=== PATIENT | female | born 1940 | race Caucasian/White ===

== ENCOUNTER 2019-05-20 19:35 | Inpatient (IN) | payer MEDICARE, MEDICAID, SELFPAY ==
[2019-05-20] VITALS (28 sets, daily range): BP systolic 86–206; BP diastolic 44–89; PULSE 71–82; RESP 14–29; TEMP 36.8–37.1; O2SAT 87–100
--- NOTE | 2019-05-20 19:43 | ED.GENADUL_ITS ---
Discharge Plan Disposition Patient Disposition: [facility] INPATIENT Condition: Improving Discharge Details Chief Complaint: SOB Clinical Impression: SOB (shortness of breath), CHF (congestive heart failure), COPD (chronic obstructive pulmonary disease), HTN (hypertension) Admit Date/Time: 05/20/19 22:00 Admit Provider: Fredo Weiss Attending Provider: Fredo Weiss Primary Care Provider: Camilla Mcdonald ED Provider: Aisha Blue Discharge Data Discharge Date/Time-TO BE ENTERED AT DEPARTURE: 05/20/19 22:35 Medical Decision Making Patient is a 79-year-old female, accompanied by her daughter, with chief complaint of shortness of breath. Patient her daughter report that she began having mild shortness of breath and laryngitis 4 days ago. Patient reports that initially she began feeling better but then yesterday began having some shortness of breath. States the shortness of breath seems to be exacerbated this evenin g after eating at a local diner. Patient seems fairly unclear in her past medical history. Based on her description, she has 8 coronary stents, bilateral stenting of lower extremities, right-sided carotid endarterectomy. History of CAD, DVT, diabetes, hypothyroidism, hyperlipidemia, COPD, hypertension, TIA. Patient reports that she stopped smoking in 2000. Does not consume alcohol. Patient is new to the area, moved here 1 month ago. We do not have any previous notes on her but will obtain recent note from primary care. Patient denies being on any water pill. Does take a blood thinner daily. Has been using her nebulizer at home which she reports helps with symptomatic management. Patient denies any chest pain, abdominal pain, neck, shoulder, back pain. Denies any nausea or vomiting. Denies any fevers or chills. States that she has been noting swelling in bilateral lower extremities, worse at night. EKG reviewed by Dr. Brian. Patient NSR, rate 81. Nonspecific T wave inversion in aVL. No acute ischemic changes noted. No previous ECG for comparison. Reviewed notes from primary care as well as discharge summary dated 04/05/2019 from hospitalization in [place] after COPD exacerbation. In their notes, patient is diagnosed with hypertension, COPD, CAD status post 8 stents, CHF with an EF of 60 to 65% in January 2019, type 2 diabetes, CKD stage III with a new baseline GFR of 35, carotid artery stenosis status post bilateral carotid endarterectomies, chronic proximal atrial fibrillation, history of DVT, dyslipidemia, hypothyroidism, obesity, suspicion for DANYELLE, memory loss concerning for dementia, medical noncompliance. Primary care physician had reported patient's weight to be 78.55 kg on 05/02/2019. She is up to 83.325 today. Blood pressure at that time was 188/62. Primary care was attempted to obtain more information on the patient. Referred to neurology for her history of TIA with residual right hand weakness and tremor. Also referred to cardiology with history of CHF that was at the time asymptomatic as well as her known CAD. She is not clear why patient is not on JENNIFER or an arm with her history of diabetes and her hypertension. Patient is on amlodipine and metoprolol. On exam, patient does appear short of breath. She is hypoxic at 93% on room air, tachypneic at 29. Patient is hypertensive with a blood pressure 186/70. When I first evaluated the patient, she was receiving her nebulizer. Normal cardiac exam, normal sinus rhythm with no murmurs rubs or gallops appreciated. Patient does have diffuse crackles on lung exam. She has bilateral lower extremity edema with 1+ pitting. Abdomen benign. Concerned for COPD exacerabtion vs. CHF exacerbation primarily but also considered ACS, PE. Find PE unlikely as she is on plavix and eliquis. She is not tachycardic, no LE pain to suggest active DVT. No CP. There was difficulty getting access on the patient. She does have a fistula in the left upper extremity. Patient will be anemic with a hemoglobin of 11, compared to previous discharge report has brought in by her daughter, patient is typically anemic. INR is normal. BUN is 32. Creatinine 1.33. GFR is 38. Glucose 235. Magnesium 1.7. Troponin is normal at 0.05. BNP is elevated at 382. Patient was given IV Lasix on first presentation given the 10 pound weight gain, peripheral edema and crackles noted on exam. She is to be responding well to this. Chest x-ray reviewed by radiologist: FINDINGS: Lungs: Slight prominence of the interstitial markings is most likely related to chronic lung changes. No significant acute or interstitial disease is appreciated. Pleural space: Unremarkable. No pleural effusion. No pneumothorax. Heart/Mediastinum: Unremarkable. No cardiomegaly. Vasculature: Calcified aortic knob. Bones/joints: No acute skeletal abnormality. Soft tissues: Clips are visualized in the lower neck. No acute soft tissue abnormality. IMPRESSION: Negative for acute thoracic pathology. Patient is feeling improved but continues to be very SOB with limited movement. Unable to get to comode without significant assitance secondary to her SOB. Will discuss admission for SOb with hospitalist. Patient accepted to medical surgical unit by Dr. Weiss for continued monitoring and medical management. HPI General Mode of arrival: wheelchair . Date/Time Provider Initiated Documentation: 05/20/19 19:40 . Limitations to Documentation: no limitations . Information obtained by: patient, family (daughter who is primary patient care secretary) an elliot RN notes reviewed . History of Present Illness 79 year old F presents to the emergency department with the chief complaint of SOB, described as moderate and similar to prior episodes, and is localized to the chest (SOB, denies any CP, chest pressures, back pain, shoulder pain, neck pain). Patient started experiencing this day(s) No relieving factors improve symptom(s), Movement worsens symptoms . Patient notes cough, shortness of breath and weakness; denies chest pain, diaphoresis, fever/chills, headaches, loss of appetite, malai se, nausea/vomiting, rash and seizure. Patient did receive the following treatments prior to arrival, none Related Data Home Medications Medication Instructions Recorded Confirmed Albuterol-Ipatropium 3 ml INHALATION PRN PRN 05/20/19 05/20/19 amlodipine [Norvasc] 2.5 mg PO DAILY 05/20/19 05/20/19 apixaban 2.5 mg PO BID 05/20/19 05/20/19 atorvastatin 40 mg PO HS 05/20/19 05/20/19 buspirone 7.5 mg PO DAILY 05/20/19 05/20/19 cholecalciferol (vitamin D3) 1,000 unit PO DAILY 05/20/19 05/20/19 clopidogrel 75 mg PO DAILY 05/20/19 05/20/19 dicyclomine 20 mg PO DAILY PRN 05/20/19 05/20/19 ferrous sulfate 325 mg PO DAILY 05/20/19 05/20/19 gabapentin 900 mg PO TID 05/20/19 05/20/19 hydralazine 25 mg PO TID 05/20/19 05/20/19 insulin glargine 50 unit SUBCUT DAILY 05/20/19 05/20/19 insulin lispro [Humalog KwikPen 15 unit SUBCUT AC 05/20/19 05/20/19 Insulin] isosorbide dinitrate 30 mg PO BID 05/20/19 05/20/19 levothyroxine 112 mcg PO DAILY 05/20/19 05/20/19 metoprolol succinate 25 mg PO DAILY 05/20/19 05/20/19 nitroglycerin [Nitrostat] 0.4 mg SUBLINGUAL Q5M PRN 05/20/19 05/20/19 pantoprazole [Protonix] 40 mg PO DAILY AM 05/20/19 05/20/19 paroxetine HCl [Paxil] 20 mg PO DAILY 05/20/19 05/20/19 Allergies Allergy/AdvReac Type Severity Reaction Status Date / Time No Known Allergies Allergy Unverified 05/20/19 20:59 General Stated Complaint: SOB JOSH: 3 Review of Systems Constitutional Constitutional: Reports as per HPI, Denies chills, Denies fever(s), Denies headache(s), Denies lethargy and Denies poor appetite Eyes Eyes: Denies change in vision ENT Ears, Nose, Mouth, and Throat: Denies dizziness and Denies headache(s) Cardiovascular Cardiovascular: Reports as per HPI, Denies chest pain, Reports leg edema (worsening with time, worse in PM, resolved in AM), Denies lightheadedness, Reports dyspnea, Reports dyspnea on exertion and Reports orthopnea Respiratory Respiratory: Reports as per HPI, Denies chest congestion, Reports cough (reports mild URI with cough, congestion, laryngitis), Denies pain on inspiration, Denies pain with cough, Reports dyspnea, Reports dyspnea on exertion and Denies wheezing Gastrointestinal Gastrointestinal: Reports as per HPI, Denies abdominal pain, Denies diarrhea, Denies nausea and Denies vomiting Musculoskeletal Musculoskeletal: Reports as per HPI and Denies back pain Integumentary/Breasts Skin/Breast: Reports as per HPI and Denies rash Neurologic Neurologic: Reports as per HPI, Denies dizziness and Denies headache(s) Allergic/Immunologic Allergic/Immunologic: Denies wheezing PFSH Social History Smoking/Tobacco Use Status: Former Tobacco Use Substance use type: does not use Do you feel safe in your relationship?: Yes Exam Const General: cooperative, well developed, acute distress (appears SOB, unable to speak in complete sentences), anxious and ill appearing acutely and chronically Nutritional Appearance: well nourished and overweight Orientation: alert, awake and oriented x3 [facility]: normal to inspection Ears: hearing grossly normal bilaterally Mouth: moist mucous membranes Chest Chest: normal inspection of the chest, normal palpation of entire chest wall and no crepitus Resp Effort & Inspection: normal respiratory effort, able to speak in complete sentences and no respiratory distress Auscultation: crackles (diffuse), diminished lung sounds (diffuse), no rhonchi and no wheezes Cardio Rate: regular rate Rhythm: regular rhythm Heart Sounds: S1 normal and S2 normal GI Inspection: normal to inspection, no edema, non-distended and obesity Palpation: soft, no hepatosplenomegaly, not firm, no guarding, not rigid and nontender Auscultation: normal bowel sounds Back/Spine/Pelvis Back: no CVA tenderness Thoracic/Lumbar Spine: thoracic and lumbar spine normal to inspection Skin General skin exam: no rashes or lesions noted Trauma: no lacerations or abrasions Neuro General: alert, awake and oriented x3 Cognition: normal cognition Speech: speech normal Gait: gait abnormal (unable to ambulate without assistance) Extrem General: normal to inspection, normal capillary refill, no calf tenderness, no calf tenderness bilaterally and edema (1+ pitting edema) Laterality: bilateral Psych Appearance: grossly normal and well kempt Mental Status: mental status grossly normal Speech and Movement: speech and movement normal Course Vital Signs Vital signs: Vital Signs Pulse 81 05/20/19 19:40 Respiratory Rate 18 05/20/19 19:40 Blood Pressure 186/70 H 05/20/19 19:40 Pulse Oximetry 93 L 05/20/19 19:40 Pulse 81 05/20/19 19:40 Respiratory Rate 18 05/20/19 19:40 Blood Pressure 186/70 H 05/20/19 19:40 Pulse Oximetry 93 L 05/20/19 19:40 Oxygen Delivery Method Room Air 05/20/19 19:40 Oxygen Flow Rate 0 05/20/19 19:40
[2019-05-20] MEDS: Albuterol/Ipratropium 3 ML UPD VIAL (19:45)
--- NOTE | 2019-05-20 20:03 | DI.RAD_ITS ---
EXAM: XR CHEST 2V PA LATERAL INDICATION: SOB. COMPARISON: No exams were available for comparison TECHNIQUE: 2D digital imaging was performed. FINDINGS: There may be slight prominence of the interstitial markings. No pulmonary infiltrate is identified. There is no evidence of a pleural effusion or pneumothorax. Cardiovascular structures appear intact. Atherosclerotic changes involving the aorta are noted. No acute skeletal abnormality. DATA REPOSITORY: No acute abnormality is seen.
[2019-05-20 20:12] LABS: Abs Immature Grans 0.05 k/cumm (0.0-0.09); Absolute Basophil Count 0.07 k/cumm (0.0-0.2); Absolute Eosinophil Count 0.35 k/cumm (0.0-0.7); Absolute Lymphocyte Count 2.01 k/cumm (1.2-3.4); Absolute Monocyte Count 0.62 k/cumm (0.11-0.7); Absolute Neutrophil Count 7.78 k/cumm (1.2-6.7); Basophils % 0.6; Eosinophils % 3.2; HCT 37.4 % (36.0-46.0); Immature Grans % 0.5; Lymphocytes % 18.5; Mean Corp. HGB Concentration 29.4 g/dL (32.0-36.0); Mean Corpuscular Hemoglobin 24.8 pg (27.0-33.0); Mean Corpuscular Volume 84.2 fL (80-95); Mean Platelet Volume 10.5 fL (8.0-11.0); Monocytes % 5.7; Neutrophils % 71.5; Platelet Count 345 x1000/uL (130-400); RBC 4.44 m/cumm (4.00-5.20); RBC Distribution Width 15.9 % (11.7-14.6); White Blood Cell Count 10.88 k/cumm (4.4-10.8)
[2019-05-20 20:25] LABS: PTT Activated 28.1 sec (21.0-31.4); Prothrombin Time 9.9 sec (9.3-11.0)
[2019-05-20 20:33] LABS: ALT 20 U/L (14-59); AST 15 U/L (15-37); Albumin 3.6 g/dL (3.4-5.0); Alkaline Phosphatase 120 U/L (46-116); Anion Gap 7.7 mmol/L (3-11); BUN 32 mg/dL (7-18); Bilirubin, Total 0.3 mg/dL (0.2-1.0); CO2 30.3 mmol/L (21.0-32.0); CREATININE 1.33 mg/dL (0.55-1.02); Calcium 8.9 mg/dL (8.5-10.1); Chloride 105 mmol/L (98-107); Estimated GFR 38.69 (mL/min/1.73m2); Glucose 235 mg/dL (70-100); Magnesium 1.7 mg/dL (1.8-2.4); NT-proBNP 382 pg/mL; Potassium 4.7 mmol/L (3.5-5.1); Sodium 143 mmol/L (136-145); Total Protein 8.6 g/dL (6.4-8.2)
[2019-05-20 20:34] LABS: Troponin I < 0.05 ng/mL (0.00-0.06)
--- NOTE | 2019-05-20 21:01 | DI.VRAD_ITS ---
EXAM: XR Chest, 2 Views EXAM DATE/TIME: 05/20/2019 8:05 PM CLINICAL HISTORY: 79 years old, female; Other: Difficulty breathing TECHNIQUE: Imaging protocol: XR of the chest Views: 2 views. COMPARISON: No relevant prior studies available. FINDINGS: Lungs: Slight prominence of the interstitial markings is most likely related to chronic lung changes. No significant acute or interstitial disease is appreciated. Pleural space: Unremarkable. No pleural effusion. No pneumothorax. Heart/Mediastinum: Unremarkable. No cardiomegaly. Vasculature: Calcified aortic knob. Bones/joints: No acute skeletal abnormality. Soft tissues: Clips are visualized in the lower neck. No acute soft tissue abnormality. IMPRESSION: Negative for acute thoracic pathology. Dictated and Authenticated by: Kishore Pereira MD. Ordering:ALEKSANDR Leonard MD
[2019-05-20] MEDS: Furosemide 40 MG/4 ML VIAL IVP (21:30)
--- NOTE | 2019-05-20 21:47 | W.PM.HP.N ---
Date of service: 05/20/19 Time of Service: 21:48 Assessment and Plan Assessment and plan (1) SOB (shortness of breath): Status: Acute Assessment and plan: SOB. I think this is largely COPD exacerbation, perhaps miinor component CHF. Will continue scheduled updrafts, don't see need ffor steroids at present, nor antibiotics. Will watch diuresis from already administered dose of lasix, do not seee that additional is needed at present. Otherwise will continue usual meds as is except add coverage for sugar. Reviewed advance directives, requests DNR. History of Present Illness History of Present Illness Chief Complaint: SOB Narrative: 79 female with h/o COPD, CHF -- reports sore throat 4 days [employer], since a little cough and then SOB over past day or two. No CP, orthopnea or ankle swelling. In ER was reported to be initially wheezing, received Duoneb with some improvement. Say she is not quite back to baseline. Also receiveed 40 lasix IV, no output at this time. Other findings of note ar EKG without ischemic changes, CXR with mild vascular redistribution, negative troponin and marginal BNP at 382. Review of Systems Review of Systems ROS Unobtainable: All systems reviewed & are unremarkable except as noted in HPI and below PFSH Social History Smoking/Tobacco Use Status: Former Tobacco Use Substance use type: does not use Do you feel safe in your relationship?: Yes Meds Home Medications and Allergies Home Medications Medication Instructions Recorded Confirmed Type Albuterol-Ipatropium 3 ml INHALATION PRN PRN 05/20/19 05/20/19 History amlodipine [Norvasc] 2.5 mg PO DAILY 05/20/19 05/20/19 History apixaban 2.5 mg PO BID 05/20/19 05/20/19 History atorvastatin 40 mg PO HS 05/20/19 05/20/19 History buspirone 7.5 mg PO DAILY 05/20/19 05/20/19 History cholecalciferol (vitamin D3) 1,000 unit PO DAILY 05/20/19 05/20/19 History clopidogrel 75 mg PO DAILY 05/20/19 05/20/19 History dicyclomine 20 mg PO DAILY PRN 05/20/19 05/20/19 History ferrous sulfate 325 mg PO DAILY 05/20/19 05/20/19 History gabapentin 900 mg PO TID 05/20/19 05/20/19 History hydralazine 25 mg PO TID 05/20/19 05/20/19 History insulin glargine 50 unit SUBCUT DAILY 05/20/19 05/20/19 History insulin lispro [Humalog KwikPen 15 unit SUBCUT AC 05/20/19 05/20/19 History Insulin] isosorbide dinitrate 30 mg PO BID 05/20/19 05/20/19 History levothyroxine 112 mcg PO DAILY 05/20/19 05/20/19 History metoprolol succinate 25 mg PO DAILY 05/20/19 05/20/19 History nitroglycerin [Nitrostat] 0.4 mg SUBLINGUAL Q5M PRN 05/20/19 05/20/19 History pantoprazole [Protonix] 40 mg PO DAILY AM 05/20/19 05/20/19 History paroxetine HCl [Paxil] 20 mg PO DAILY 05/20/19 05/20/19 History Allergies Allergy/AdvReac Type Severity Reaction Status Date / Time No Known Allergies Allergy Unverified 05/20/19 20:59 Exam Narrative Exam Narrative: 105/74, 71, 36.8, 21, 93% RA. HEENT AT/NC; neck supple, cannot seee JVP; lungs quite diminished, few wheeze barely audible; heart distnat but RRR, 1/6 sys murmur LUSB; abddomen soft NT; extremitties no edema pulse 2+/= Results Labs Result diagrams: 05/20/19 19:50 05/20/19 19:50 Labs: Laboratory Results - last 24 hr 05/20/19 05/20/19 05/20/19 19:50 19:50 19:50 WBC 10.88 H RBC 4.44 Hgb 11.0 L Hct 37.4 MCV 84.2 MCH 24.8 L MCHC 29.4 L RDW 15.9 H Plt Count 345 MPV 10.5 Immature Gran % 0.5 Neutrophils % 71.5 Lymphocytes % 18.5 Monocytes % 5.7 Eosinophils % 3.2 Basophils % 0.6 Absolute Neutrophils 7.78 H Absolute Lymphocytes 2.01 Absolute Monocytes 0.62 Absolute Eosinophils 0.35 Absolute Basophils 0.07 PT 9.9 INR 1.0 APTT 28.1 Sodium 143 Potassium 4.7 Chloride 105 Carbon Dioxide 30.3 Anion Gap 7.7 BUN 32 H Creatinine 1.33 H Estimated GFR/1.73 m2 38.69 Glucose 235 H Calcium 8.9 Magnesium 1.7 L Total Bilirubin 0.3 AST 15 ALT 20 Alkaline Phosphatase 120 H Troponin I < 0.05 NT-Pro-B Natriuret Pep 382 H Total Protein 8.6 H Albumin 3.6 Last Vital Signs Temp 36.8 C 05/20/19 19:40 Pulse 71 05/20/19 21:12 Resp 21 05/20/19 21:12 BP 105/74 05/20/19 21:12 Pulse Ox 93 L 05/20/19 21:12
[2019-05-21] VITALS (19 sets, daily range): BP systolic 100–157; BP diastolic 33–88; PULSE 67–105; RESP 8–28; TEMP 36.5–37.4; O2SAT 91–99
[2019-05-21] MEDS: Albuterol/Ipratropium 3 ML UPD VIAL UPD ×2 (05:47→11:48)
[2019-05-21] MEDS: Levothyroxine 112 MCG TAB PO (05:48)
[2019-05-21] MEDS: Pantoprazole 40 MG TABCR PO (05:48)
[2019-05-21] MEDS: Clopidogrel 75 MG TAB PO (07:54)
[2019-05-21] MEDS: hydrALAZINE 25 MG TAB PO ×3 (07:55→19:34)
[2019-05-21] MEDS: Cholecalciferol (Vitamin D3) 1,000 UNIT TAB 1000 UNITS PO (07:55)
[2019-05-21] MEDS: Isosorbide Dinitrate 10 MG TAB 30 MG PO ×2 (07:55→21:34)
[2019-05-21] MEDS: Gabapentin 300 MG CAP 900 MG PO ×3 (07:55→19:35)
[2019-05-21] MEDS: Metoprolol CR 25 MG TABCR PO (07:55)
[2019-05-21] MEDS: Ferrous Sulfate 325 MG TAB PO (07:55)
[2019-05-21] MEDS: PARoxetine 20 MG TAB PO (07:56)
[2019-05-21] MEDS: amLODIPine 2.5 MG TAB PO (07:56)
[2019-05-21] MEDS: busPIRone 15 MG TAB 7.5 MG PO (07:56)
[2019-05-21] MEDS: Apixaban 2.5 MG TAB PO ×2 (08:10→19:34)
--- NOTE | 2019-05-21 08:18 | PDOC.CMIN ---
Care Management Initial Assess REASON FOR HOSPITALIZATION:: SOB, COPD PAST MEDICAL HISTORY/PAST SURGICAL HISTORY:: COPD, CHF, CAD, DVT, diabetes, hypothyroidism, hyperlipidemia, COPD, hypertension, TIA, HTN. Patient reports that she stopped smoking in 2000. Hx of eight coronary stents, bilateral stenting of lower extremities, right-sided carotid endarterectomy PREVIOUS FUNCTIONAL STATUS/SOCIAL/FAMILY SUPPORTS:: Karina relocated to [place] within the last month and is residing in [place], [place] with her daughter Fina. Her son Rizwan resides in [place]. She is mostly independent with personal ADLs and relies on Fina for additional needs in the home setting. CURRENT FUNCTIONAL STATUS:: Karina is sleeping on her side when CM attempts to meet with her. RNLorri reports Karina has been sleeping consistently and has awakened her multiple times throughout the morning. CM attempts to meet with Karina again in the afternoon, and again finds Karina sleeping. ADVANCE DIRECTIVES:: None on file at [facility]. Has patient been provided with information about the portal?: Yes Did the patient sign up for the portal?: No CODE STATUS:: DNR/DNI INSURANCE COVERAGE / FINANCIAL ISSUES:: Medicaid. Medicare CURRENT HOME/COMMUNITY SERVICES/EQUIPMENT:: No known current services, equipment. PRIMARY CARE PHYSICIAN:: Camilla Mcdonald POTENTIAL DISCHARGE NEEDS:: Follow up appointments with community providers. PATIENT/FAMILY EDUCATION NEEDS:: Review discharge instructions, discuss Ask Me Three. ANTICIPATED BARRIERS TO DISCHARGE:: None identified. TRANSPORTATION:: Karina will transport via private vehicle with her family. PLAN:: Karina will continue to be closely monitored and treated at this time. CM will continue to follow and support discharge planning considerations. Anticipate Karina will return home with no additional services at this time and transport via private vehicle with her daughter, Fina.
[2019-05-21 11:12] LABS: Anion Gap 6.8 mmol/L (3-11); BUN 35 mg/dL (7-18); CO2 33.2 mmol/L (21.0-32.0); CREATININE 1.45 mg/dL (0.55-1.02); Calcium 8.7 mg/dL (8.5-10.1); Chloride 103 mmol/L (98-107); Estimated GFR 35.02 (mL/min/1.73m2); Glucose 191 mg/dL (70-100); Magnesium 1.5 mg/dL (1.8-2.4); Potassium 4.7 mmol/L (3.5-5.1); Sodium 143 mmol/L (136-145)
[2019-05-21] MEDS: predniSONE 20 MG TAB 40 MG PO ×2 (11:13→19:34)
[2019-05-21] MEDS: Insulin Aspart 300 UNITS/3 ML PEN SC ×2 (11:36→16:55)
[2019-05-21 12:33] LABS: Abs Immature Grans 0.04 k/cumm (0.0-0.09); Absolute Basophil Count 0.05 k/cumm (0.0-0.2); Absolute Eosinophil Count 0.28 k/cumm (0.0-0.7); Absolute Lymphocyte Count 1.87 k/cumm (1.2-3.4); Absolute Neutrophil Count 6.95 k/cumm (1.2-6.7); Basophils % 0.5; Eosinophils % 2.8; HCT 32.5 % (36.0-46.0); HGB 9.5 g/dL (12.0-15.5); Immature Grans % 0.4; Lymphocytes % 18.9; Mean Corp. HGB Concentration 29.2 g/dL (32.0-36.0); Mean Corpuscular Hemoglobin 24.5 pg (27.0-33.0); Mean Corpuscular Volume 83.8 fL (80-95); Monocytes % 7.1; Neutrophils % 70.3; Platelet Count 302 x1000/uL (130-400); RBC 3.88 m/cumm (4.00-5.20); RBC Distribution Width 15.9 % (11.7-14.6); White Blood Cell Count 9.89 k/cumm (4.4-10.8)
[2019-05-21 13:15] LABS: Anisocytosis 1+; Diff Comment Agrees w/ Instrument; Hypochromasia 2+; Microcytosis 2+; Polychromasia Present
[2019-05-21] MEDS: Normal Saline Flush 10 ML SYR IVP (16:42)
--- NOTE | 2019-05-21 18:35 | W.PM.PROGNOT ---
Date of Service Date of service: 05/21/19 Time of Service: 18:35 Assessment and Plan Assessment and plan (1) SOB (shortness of breath): Status: Acute Assessment and plan: Appears to have been a COPD exacerbation, although the patient also received lasix. BNP was only minimally elevated, with Xray not showing signs of gross volume overload. - Continue steroids but change to oral prednisone. No indication for antibiotics. Continue nebs. (2) CAD (coronary artery disease): Status: Chronic Assessment and plan: Prior history of numerous stents, exact details unknown. ECG appears non-ischemic and troponin negative. - Continue statin, Clopidogrel, long-acting nitrate, BB. Also on anticoagulation with low dose Apixaban. (3) Hypothyroidism: Status: Chronic Assessment and plan: Continue replacement therapy (4) Diabetes mellitus: Status: Chronic Assessment and plan: Continue insulin, Sliding scale, and ADA diet. (5) DVT prophylaxis: Status: Acute Assessment and plan: On chronic anticoagulation. Continue PPI therapy. Subjective Subjective Interval history since last seen: 79 year old woman with a prior history of COPD, admitted from [facility] with a diagnosis of COPD exacerbation. Mrs. Bean has a prior history of CAD with reported 8 previous stents, prior DVT, Carotid Artery Disease s/p CEA, DM, Hypothyroidism, HTN, CKD, and PAF. She also has note of a CHF history with an intact LVEF. The patient presented with a reported dyspnea over 1-2 days, and noted in the ED to be wheezing. Her labwork was remarkable for a mildly elevated Creatinine, with an unknown baseline, as well mild anemia. Her CXR was unremarkable, but she was noted to have significant wheezing. She was given steroids, nebs, and referred for admission. This morning Mrs. Bean reports feeling well and near baseline from a respiratory standpoint. No overnight events reported. Remains afebrile. Exam Narrative Exam Narrative: General: Patient appears comfortable, AAOX3, NAD Neck: Supple CV: Regular, nontachycardic, 3/6 LLSB murmur Pulmonary: Clear to auscultation bilaterally, no crackles, wheezing, or rhonchi with good air entry Abdomen: + Bowel Sounds, soft, nontender, nondistended Vascular: No lower extremity edema Psych: Normal mood and affect. Objective Objective Clinical Data: Abnormal lab results 05/20/19 05/20/19 05/21/19 Range/Units 19:50 19:50 10:55 WBC 10.88 H (4.4-10.8) k/cumm RBC (4.00-5.20) m/cumm Hgb 11.0 L (12.0-15.5) g/dL Hct (36.0-46.0) % MCH 24.8 L (27.0-33.0) pg MCHC 29.4 L (32.0-36.0) g/dL RDW 15.9 H (11.7-14.6) % Absolute Neutrophils 7.78 H (1.2-6.7) k/cumm Carbon Dioxide 33.2 H (21.0-32.0) mmol/L BUN 32 H 35 H (7-18) mg/dL Creatinine 1.33 H 1.45 H (0.55-1.02) mg/dL Glucose 235 H 191 H (70-100) mg/dL Magnesium 1.7 L 1.5 L (1.8-2.4) mg/dL Alkaline Phosphatase 120 H (46-116) U/L NT-Pro-B Natriuret Pep 382 H ( - 299) pg/mL Total Protein 8.6 H (6.4-8.2) g/dL 05/21/19 Range/Units 10:55 WBC (4.4-10.8) k/cumm RBC 3.88 L (4.00-5.20) m/cumm Hgb 9.5 L (12.0-15.5) g/dL Hct 32.5 L (36.0-46.0) % MCH 24.5 L (27.0-33.0) pg MCHC 29.2 L (32.0-36.0) g/dL RDW 15.9 H (11.7-14.6) % Absolute Neutrophils 6.95 H (1.2-6.7) k/cumm Carbon Dioxide (21.0-32.0) mmol/L BUN (7-18) mg/dL Creatinine (0.55-1.02) mg/dL Glucose (70-100) mg/dL Magnesium (1.8-2.4) mg/dL Alkaline Phosphatase (46-116) U/L NT-Pro-B Natriuret Pep ( - 299) pg/mL Total Protein (6.4-8.2) g/dL Vital Signs Temperature 37.0 C 05/21/19 16:03 Temperature Source Temporal Artery Scan 05/21/19 16:03 Pulse 80 05/21/19 18:00 Pulse Rhythm Regular 05/21/19 09:52 Pulse 71 05/20/19 22:01 Respiratory Rate 20 05/21/19 16:03 Respiratory Effort 05/21/19 09:52 Respiratory Depth Normal 05/21/19 09:52 Respiratory Pattern Normal 05/21/19 09:52 Blood Pressure 156/69 H 05/21/19 18:00 Blood Pressure Mean 71 05/20/19 22:01 Pulse Oximetry 95 05/21/19 18:00 Oxygen Delivery Method Room Air 05/21/19 18:00 Oxygen Flow Rate 0 05/21/19 18:00 Pain Level 0 05/21/19 16:03 Comment 05/21/19 18:00 Intake & Output 05/20/19 05/21/19 05/21/19 23:59 11:59 23:59 Intake Total 780 / 1260 480 / 1260 Output Total 350 / 350 900 / 1350 450 / 1350 Balance -350 / -350 -120 / -90 30 / -90 Weight 83.325 kg 79.6 kg Intake: Oral 780 / 1260 480 / 1260 Output: Urine 350 / 350 900 / 1350 450 / 1350 Other: Urine Color Yellow Yellow Urine Appearance Clear Clear Urine Odor Strong Comment pt missed hat. Voiding Methods Toilet Toilet # Bowel Movements 1 Laboratory Results WBC 9.89 k/cumm (4.4-10.8) 05/21/19 10:55 RBC 3.88 m/cumm (4.00-5.20) L 05/21/19 10:55 Hgb 9.5 g/dL (12.0-15.5) L 05/21/19 10:55 Hct 32.5 % (36.0-46.0) L 05/21/19 10:55 MCV 83.8 fL (80-95) 05/21/19 10:55 MCH 24.5 pg (27.0-33.0) L 05/21/19 10:55 MCHC 29.2 g/dL (32.0-36.0) L 05/21/19 10:55 RDW 15.9 % (11.7-14.6) H 05/21/19 10:55 Plt Count 302 x1000/uL (130-400) 05/21/19 10:55 MPV 11.0 fL (8.0-11.0) 05/21/19 10:55 Immature Gran % 0.4 05/21/19 10:55 Neutrophils % 70.3 05/21/19 10:55 Lymphocytes % 18.9 05/21/19 10:55 Monocytes % 7.1 05/21/19 10:55 Eosinophils % 2.8 05/21/19 10:55 Basophils % 0.5 05/21/19 10:55 Absolute Neutrophils 6.95 k/cumm (1.2-6.7) H 05/21/19 10:55 Absolute Lymphocytes 1.87 k/cumm (1.2-3.4) 05/21/19 10:55 Absolute Monocytes 0.70 k/cumm (0.11-0.7) 05/21/19 10:55 Absolute Eosinophils 0.28 k/cumm (0.0-0.7) 05/21/19 10:55 Absolute Basophils 0.05 k/cumm (0.0-0.2) 05/21/19 10:55 Differential Comment Agrees w/ instrument 05/21/19 10:55 RBC Morphology See below 05/21/19 10:55 Polychromasia Present 05/21/19 10:55 Hypochromasia 2+ 05/21/19 10:55 Anisocytosis 1+ 05/21/19 10:55 Microcytosis 2+ 05/21/19 10:55 PT 9.9 sec (9.3-11.0) 05/20/19 19:50 INR 1.0 (0.9-1.1) 05/20/19 19:50 APTT 28.1 sec (21.0-31.4) 05/20/19 19:50 Sodium 143 mmol/L (136-145) 05/21/19 10:55 Potassium 4.7 mmol/L (3.5-5.1) 05/21/19 10:55 Chloride 103 mmol/L (98-107) 05/21/19 10:55 Carbon Dioxide 33.2 mmol/L (21.0-32.0) H 05/21/19 10:55 Anion Gap 6.8 mmol/L (3-11) 05/21/19 10:55 BUN 35 mg/dL (7-18) H 05/21/19 10:55 Creatinine 1.45 mg/dL (0.55-1.02) H 05/21/19 10:55 Estimated GFR/1.73 m2 35.02 (mL/min/1.73m2) 05/21/19 10:55 Glucose 191 mg/dL (70-100) H 05/21/19 10:55 Calcium 8.7 mg/dL (8.5-10.1) 05/21/19 10:55 Magnesium 1.5 mg/dL (1.8-2.4) L 05/21/19 10:55 Total Bilirubin 0.3 mg/dL (0.2-1.0) 05/20/19 19:50 AST 15 U/L (15-37) 05/20/19 19:50 ALT 20 U/L (14-59) 05/20/19 19:50 Alkaline Phosphatase 120 U/L (46-116) H 05/20/19 19:50 Troponin I < 0.05 ng/mL (0.00-0.06) 05/20/19 19:50 NT-Pro-B Natriuret Pep 382 pg/mL (-299) H 05/20/19 19:50 Total Protein 8.6 g/dL (6.4-8.2) H 05/20/19 19:50 Albumin 3.6 g/dL (3.4-5.0) 05/20/19 19:50
--- NOTE | 2019-05-21 18:41 | NUR.NOTE ---
Nursing Note: Pt c/o of chest pain at 1750. VSS. Family at bedside. 1 nitro administered SL at 1752 with minimal relief. CCRN and MD alerted. 2nd nitro administered at 1757 with minimal relief. Stat EKG ordered and obtained. 3rd nitro administered at MD order; 1806. Report given to Pushpa Mora RN in ICU. Pt moved to ICU Room 219 at 1830.
[2019-05-21 18:45] LABS: Troponin I < 0.05 ng/mL (0.00-0.06)
--- NOTE | 2019-05-21 19:55 | PGE_ITS ---
Date of Service Date of service: 05/21/19 Time of Service: 19:55 Assessment and Plan Assessment and plan (1) Atypical chest pain: Status: Acute Assessment and plan: Ms Bean has known CAD w/ multiople stents; her EKG did not show any acute changes and her troponin is negative. She is already on maximal antiischemic and CAD treatment w/ Plavix, BB, Apixaban and Isosorbide d initrate. I will continue to cycle her troponins but will give her an analgesic for her CW pain. She is not SOB nor tachypneic nor tachycardia and she has been on Apixaban, therefore unlikely to be a P.E. Subjective Subjective Interval history since last seen: Patient complains of intermittent CP. She describes as a sharp pain, substernal and under her left breast but at times into her right chest. CP initially was 8/10 and went down to 2/10 after 3 NTG SL. Stat EKG did not show any acute ST elevation. She has non-specific ST-T flattening in aVL which on yesterday's EKG was more T wave inversion. Her troponin is negative. While I was in the room she had myoclonus of her right arm which she says has been happening since admission. She states that she is having CP now but when I examined her, I was able to reproduce her CP w/ light palpation of her sternum and chest wall. Exam Const General: cooperative Nutritional Appearance: obese Orientation: alert, awake and oriented x3 Chest Chest: tenderness sternum and costochondral junction (bilaterally) right mid- clavicular line , left mid-clavicular line Resp Effort & Inspection: normal respiratory effort and able to speak in complete sentences Auscultation: clear to auscultation bilaterally Cardio Jugular venous pressure: no JVD Palpation: normal PMI Rate: regular rate Rhythm: regular rhythm Heart Sounds: S1 normal, S2 normal, normal, physiologic split S2, no gallops, no murmurs and no rubs Objective Objective Clinical Data: Abnormal lab results 05/20/19 05/20/19 05/21/19 Range/Units 19:50 19:50 10:55 WBC 10.88 H (4.4-10.8) k/cumm RBC (4.00-5.20) m/cumm Hgb 11.0 L (12.0-15.5) g/dL Hct (36.0-46.0) % MCH 24.8 L (27.0-33.0) pg MCHC 29.4 L (32.0-36.0) g/dL RDW 15.9 H (11.7-14.6) % Absolute Neutrophils 7.78 H (1.2-6.7) k/cumm Carbon Dioxide 33.2 H (21.0-32.0) mmol/L BUN 32 H 35 H (7-18) mg/dL Creatinine 1.33 H 1.45 H (0.55-1.02) mg/dL Glucose 235 H 191 H (70-100) mg/dL Magnesium 1.7 L 1.5 L (1.8-2.4) mg/dL Alkaline Phosphatase 120 H (46-116) U/L NT-Pro-B Natriuret Pep 382 H ( - 299) pg/mL Total Protein 8.6 H (6.4-8.2) g/dL 05/21/19 Range/Units 10:55 WBC (4.4-10.8) k/cumm RBC 3.88 L (4.00-5.20) m/cumm Hgb 9.5 L (12.0-15.5) g/dL Hct 32.5 L (36.0-46.0) % MCH 24.5 L (27.0-33.0) pg MCHC 29.2 L (32.0-36.0) g/dL RDW 15.9 H (11.7-14.6) % Absolute Neutrophils 6.95 H (1.2-6.7) k/cumm Carbon Dioxide (21.0-32.0) mmol/L BUN (7-18) mg/dL Creatinine (0.55-1.02) mg/dL Glucose (70-100) mg/dL Magnesium (1.8-2.4) mg/dL Alkaline Phosphatase (46-116) U/L NT-Pro-B Natriuret Pep ( - 299) pg/mL Total Protein (6.4-8.2) g/dL Vital Signs Temperature 37 C 05/21/19 18:36 Temperature Source Temporal Artery Scan 05/21/19 18:36 Pulse 76 05/21/19 18:36 Pulse Rhythm Regular 05/21/19 09:52 Pulse 71 05/20/19 22:01 Respiratory Rate 20 05/21/19 16:03 Respiratory Effort 05/21/19 18:36 Respiratory Depth Normal 05/21/19 18:36 Respiratory Pattern Normal 05/21/19 18:36 Blood Pressure 156/69 H 05/21/19 18:00 Blood Pressure Mean 71 05/20/19 22:01 Pulse Oximetry 95 05/21/19 18:36 Oxygen Delivery Method Room Air 05/21/19 18:36 Oxygen Flow Rate 0 05/21/19 18:36 Pain Level 2 05/21/19 18:36 Comment 05/21/19 18:00 Intake & Output 05/20/19 05/21/19 05/21/19 23:59 11:59 23:59 Intake Total 780 / 1260 480 / 1260 Output Total 350 / 350 900 / 1350 450 / 1350 Balance -350 / -350 -120 / -90 30 / -90 Weight 83.325 kg 79.6 kg 79.6 kg Intake: Oral 780 / 1260 480 / 1260 Output: Urine 350 / 350 900 / 1350 450 / 1350 Other: Urine Color Yellow Yellow Urine Appearance Clear Clear Urine Odor Strong Comment pt missed hat. Voiding Methods Toilet Toilet # Bowel Movements 1 Laboratory Results WBC 9.89 k/cumm (4.4-10.8) 05/21/19 10:55 RBC 3.88 m/cumm (4.00-5.20) L 05/21/19 10:55 Hgb 9.5 g/dL (12.0-15.5) L 05/21/19 10:55 Hct 32.5 % (36.0-46.0) L 05/21/19 10:55 MCV 83.8 fL (80-95) 05/21/19 10:55 MCH 24.5 pg (27.0-33.0) L 05/21/19 10:55 MCHC 29.2 g/dL (32.0-36.0) L 05/21/19 10:55 RDW 15.9 % (11.7-14.6) H 05/21/19 10:55 Plt Count 302 x1000/uL (130-400) 05/21/19 10:55 MPV 11.0 fL (8.0-11.0) 05/21/19 10:55 Immature Gran % 0.4 05/21/19 10:55 Neutrophils % 70.3 05/21/19 10:55 Lymphocytes % 18.9 05/21/19 10:55 Monocytes % 7.1 05/21/19 10:55 Eosinophils % 2.8 05/21/19 10:55 Basophils % 0.5 05/21/19 10:55 Absolute Neutrophils 6.95 k/cumm (1.2-6.7) H 05/21/19 10:55 Absolute Lymphocytes 1.87 k/cumm (1.2-3.4) 05/21/19 10:55 Absolute Monocytes 0.70 k/cumm (0.11-0.7) 05/21/19 10:55 Absolute Eosinophils 0.28 k/cumm (0.0-0.7) 05/21/19 10:55 Absolute Basophils 0.05 k/cumm (0.0-0.2) 05/21/19 10:55 Differential Comment Agrees w/ instrument 05/21/19 10:55 RBC Morphology See below 05/21/19 10:55 Polychromasia Present 05/21/19 10:55 Hypochromasia 2+ 05/21/19 10:55 Anisocytosis 1+ 05/21/19 10:55 Microcytosis 2+ 05/21/19 10:55 PT 9.9 sec (9.3-11.0) 05/20/19 19:50 INR 1.0 (0.9-1.1) 05/20/19 19:50 APTT 28.1 sec (21.0-31.4) 05/20/19 19:50 Sodium 143 mmol/L (136-145) 05/21/19 10:55 Potassium 4.7 mmol/L (3.5-5.1) 05/21/19 10:55 Chloride 103 mmol/L (98-107) 05/21/19 10:55 Carbon Dioxide 33.2 mmol/L (21.0-32.0) H 05/21/19 10:55 Anion Gap 6.8 mmol/L (3-11) 05/21/19 10:55 BUN 35 mg/dL (7-18) H 05/21/19 10:55 Creatinine 1.45 mg/dL (0.55-1.02) H 05/21/19 10:55 Estimated GFR/1.73 m2 35.02 (mL/min/1.73m2) 05/21/19 10:55 Glucose 191 mg/dL (70-100) H 05/21/19 10:55 Calcium 8.7 mg/dL (8.5-10.1) 05/21/19 10:55 Magnesium 1.5 mg/dL (1.8-2.4) L 05/21/19 10:55 Total Bilirubin 0.3 mg/dL (0.2-1.0) 05/20/19 19:50 AST 15 U/L (15-37) 05/20/19 19:50 ALT 20 U/L (14-59) 05/20/19 19:50 Alkaline Phosphatase 120 U/L (46-116) H 05/20/19 19:50 Troponin I < 0.05 ng/mL (0.00-0.06) 05/21/19 18:17 NT-Pro-B Natriuret Pep 382 pg/mL (-299) H 05/20/19 19:50 Total Protein 8.6 g/dL (6.4-8.2) H 05/20/19 19:50 Albumin 3.6 g/dL (3.4-5.0) 05/20/19 19:50
[2019-05-21] MEDS: Atorvastatin 40 MG TAB PO (21:33)
[2019-05-21 22:54] LABS: Troponin I < 0.05 ng/mL (0.00-0.06)
[2019-05-22] VITALS (59 sets, daily range): BP systolic 107–160; BP diastolic 41–99; PULSE 66–84; RESP 1–26; TEMP 36.2–36.6; O2SAT 91–100
[2019-05-22] MEDS: Levothyroxine 112 MCG TAB PO (06:41)
[2019-05-22 06:58] LABS: Abs Immature Grans 0.12 k/cumm (0.0-0.09); Absolute Basophil Count 0.02 k/cumm (0.0-0.2); Absolute Neutrophil Count 18.06 k/cumm (1.2-6.7); Basophils % 0.1; HCT 33.4 % (36.0-46.0); HGB 9.9 g/dL (12.0-15.5); Immature Grans % 0.6; Lymphocytes % 5.9; Mean Corp. HGB Concentration 29.6 g/dL (32.0-36.0); Mean Corpuscular Hemoglobin 24.3 pg (27.0-33.0); Mean Corpuscular Volume 81.9 fL (80-95); Mean Platelet Volume 10.8 fL (8.0-11.0); Monocytes % 3.5; Neutrophils % 89.9; Platelet Count 337 x1000/uL (130-400); RBC 4.08 m/cumm (4.00-5.20); RBC Distribution Width 16.3 % (11.7-14.6); White Blood Cell Count 20.09 k/cumm (4.4-10.8)
[2019-05-22 07:02] LABS: Absolute Lymphocyte Count 1.19 k/cumm (1.2-3.4)
[2019-05-22 07:08] LABS: Anion Gap 10.6 mmol/L (3-11); BUN 52 mg/dL (7-18); CO2 27.4 mmol/L (21.0-32.0); Calcium 8.9 mg/dL (8.5-10.1); Chloride 100 mmol/L (98-107); Estimated GFR 27.28 (mL/min/1.73m2); Glucose 298 mg/dL (70-100); Magnesium 1.7 mg/dL (1.8-2.4); Potassium 5.4 mmol/L (3.5-5.1); Sodium 138 mmol/L (136-145)
[2019-05-22 07:24] LABS: Anisocytosis 1+; Hypochromasia 1+; Microcytosis 2+; Polychromasia Present
[2019-05-22 07:27] LABS: Diff Comment Agrees w/ Instrument
[2019-05-22 07:29] LABS: Poikilocytes 1+
[2019-05-22] MEDS: Clopidogrel 75 MG TAB PO (08:42)
[2019-05-22] MEDS: PARoxetine 20 MG TAB PO (08:42)
[2019-05-22] MEDS: predniSONE 20 MG TAB 40 MG PO ×2 (08:42→20:31)
[2019-05-22] MEDS: Apixaban 2.5 MG TAB PO ×2 (08:42→20:31)
[2019-05-22] MEDS: Ferrous Sulfate 325 MG TAB PO (08:42)
[2019-05-22] MEDS: hydrALAZINE 25 MG TAB PO ×3 (08:42→20:30)
[2019-05-22] MEDS: Isosorbide Dinitrate 10 MG TAB 30 MG PO ×2 (08:42→20:30)
[2019-05-22] MEDS: Pantoprazole 40 MG TABCR PO (08:42)
[2019-05-22] MEDS: Metoprolol CR 25 MG TABCR PO (08:42)
[2019-05-22] MEDS: Cholecalciferol (Vitamin D3) 1,000 UNIT TAB 1000 UNITS PO (08:42)
[2019-05-22] MEDS: Gabapentin 300 MG CAP 900 MG PO ×3 (08:42→20:30)
[2019-05-22] MEDS: amLODIPine 2.5 MG TAB PO (08:43)
[2019-05-22] MEDS: busPIRone 15 MG TAB 7.5 MG PO (08:44)
[2019-05-22] MEDS: Insulin Aspart 300 UNITS/3 ML PEN SC ×3 (08:51→18:34)
--- NOTE | 2019-05-22 08:52 | PDOC.CMPRO ---
Care Management Progress Note S/O: Karina will continue to be closely monitored and treated at this time. She was transferred to the ICU due to chest pain, which reportedly resolved with nitro and she transferred back to M/S floor this afternoon. CM continues to follow. A: 79 year old female admitted to [facility] 05/20/19 for SOB, COPD P: Karina will continue to be closely monitored and treated at this time. CM will continue to follow and support discharge planning considerations. Anticipate Karina will return home with no additional services at this time and transport via private vehicle with her daughter, Fina.
[2019-05-22] MEDS: Insulin Glargine 100 UNITS/ML UNIT 50 UNITS SC (08:57)
--- NOTE | 2019-05-22 09:15 | MERGE_ITS ---
*[facility]* *[facility]* [address] [place] [address] Date of study: 05/22/2019 Transthoracic Echocardiography M-mode, complete 2D, complete spectral Doppler, and color Doppler *STUDY CONCLUSIONS* Summary: 1. Left ventricle: The cavity size was normal. Wall thickness was increased in a pattern of mild LVH. Systolic function was normal. The estimated ejection fraction was 60-65%. Wall motion was normal; there were no regional wall motion abnormalities. Doppler parameters are consistent with high ventricular filling pressure. 2. Right ventricle: The cavity size was normal. Systolic function was normal. 3. Left atrium: The atrium was mildly dilated. 4. Inferior vena cava: The vessel was patent and mildly dilated. The respirophasic diameter changes were in the normal range (greater than or equal to 50%), consistent with normal central venous pressure. *PATIENT PRESENTATION* Height: 154.9cm (61in ) S/D Pressure: 117 / 48 Weight: 79.8kg (175.6lb ) BSA: 1.89m^2 Test start time: 09:15 AM. Test stop time: 10:15 AM. PERFORMING Unknown CONSULTING Betito Lopez ORDERING Betito Lopez REFERRING Betito Lpoez PERFORMING [facility] COURT ASSOCIATE JUSTICE RT Onesimo Brand)(ALBA)IRAIDA *PROCEDURE DATA* Procedure information: The patient was identified by two identifiers. This study was interpreted by [facility]. Pertinent images and digital data are archived for permanent storage and are available for subsequent review. No prior study was available for comparison. Study status: Routine. Transthoracic echocardiography. M-mode, complete 2D, complete spectral Doppler, and color Doppler. A Transthoracic Echocardiogram was performed. Scanning was performed from the parasternal, apical, subcostal, and suprasternal notch acoustic windows. Images were obtained using an [id number] cardiac ultrasound machine. Image quality was adequate. Study completion: The patient tolerated the procedure well. There were no complications. *CARDIAC ANATOMY* Left ventricle: The cavity size was normal. Wall thickness was increased in a pattern of mild LVH. Systolic function was normal. The estimated ejection fraction was 60-65%. Wall motion was normal; there were no regional wall motion abnormalities. Findings consistent with diastolic dysfunction. Doppler parameters are consistent with high ventricular filling pressure. Aortic valve: Trileaflet; mildly thickened leaflets. Mobility was not restricted. Doppler: Transvalvular velocity was within the normal range. There was no stenosis. There was no significant regurgitation. VTI ratio of LVOT to aortic valve: 0.68. Valve area (VTI): 2.3cm^2. Indexed valve area (VTI): 1.2cm^2/m^2. Peak velocity ratio of LVOT to aortic valve: 0.6. Valve area (Vmax): 2cm^2. Indexed valve area (Vmax): 1.1cm^2/m^2. Mean velocity ratio of LVOT to aortic valve: 0.65. Valve area (Vmean): 2.2cm^2. Indexed valve area (Vmean): 1.1cm^2/m^2. Mean gradient (S): 8.1mm Hg. Peak gradient (S): 13.1mm Hg. Aorta: Aortic root: The aortic root was normal in size. Ascending aorta: The ascending aorta was normal in size. Mitral valve: Mildly thickened leaflets. Mobility was not restricted. Doppler: Transvalvular velocity was within the normal range. There was no evidence for stenosis. There was mild regurgitation. Valve area by pressure half-time: 4.5cm^2. Indexed valve area by pressure half-time: 2.4cm^2/m^2. Peak gradient (D): 7.3mm Hg. Left atrium: The atrium was mildly dilated. Right ventricle: The cavity size was normal. Systolic function was normal. Pulmonic valve: Poorly visualized. Doppler: Transvalvular velocity was within the normal range. There was no evidence for stenosis. There was no significant regurgitation. Tricuspid valve: Structurally normal valve. Doppler: Transvalvular velocity was within the normal range. There was no evidence for stenosis. There was trivial regurgitation. Pulmonary artery: Poorly visualized. Systolic pressure could not be accurately estimated. Right atrium: The atrium was dilated. Pericardium: There was no pericardial effusion. Systemic veins: Inferior vena cava: Well visualized. The vessel was patent and mildly dilated. The respirophasic diameter changes were in the normal range (greater than or equal to 50%), consistent with normal central venous pressure. Baseline ECG: Normal sinus rhythm. Measurements Left ventricle Value Reference LV ID, ED, PLAX 4.7 cm 3.5 - 6.0 LV ID, ES, PLAX 2.9 cm 2.1 - 4.0 LV PW thickness, ED, PLAX 1.2 cm LV end-diastolic volume, 1-p A2C 69 ml LV ejection fraction, 1-p A2C 64 % LV end-diastolic volume, 1-p A4C 89 ml LV ejection fraction, 1-p A4C 70 % LV e', lateral 0.082 m/sec LV E/e', lateral 17 LV e', medial 0.06 m/sec LV E/e', medial 23 LV e', average 0.071 m/sec LV E/e', average 19 Ventricular septum Value Reference IVS thickness, ED, PLAX 1.3 cm LVOT Value Reference LVOT ID, A-P 2.1 cm LVOT area 3.3 cm^2 LVOT peak velocity, S 1.08 m/sec LVOT mean velocity, S 0.89 m/sec LVOT VTI, S 30.6 cm LVOT peak gradient, S 4.7 mm Hg LVOT mean gradient, S 3.4 mm Hg Stroke volume (SV), LVOT DP 102 ml Stroke index (SV/bsa), LVOT DP 54 ml/m^2 Aortic valve Value Reference Aortic valve peak velocity, S 1.8 m/sec Aortic valve mean velocity, S 1.4 m/sec Aortic valve VTI, S 45.0 cm Aortic mean gradient, S 8.1 mm Hg Aortic peak gradient, S 13.1 mm Hg VTI ratio, LVOT/AV 0.68 Aortic valve area, VTI 2.3 cm^2 Velocity ratio, peak, LVOT/AV 0.6 Aortic valve area, peak velocity 2 cm^2 Velocity ratio, mean, LVOT/AV 0.65 Aortic valve area, mean velocity 2.2 cm^2 Aortic valve area/bsa, mean velocity 1.1 cm^2/m^2 Aorta Value Reference Aortic root ID, ED 2.3 cm Ascending aorta ID, A-P, S 3.0 cm Left atrium Value Reference LA ID, A-P, ES 3.7 cm LA ID/bsa, A-P 2.0 cm/m^2 <=2.2 LA volume/bsa, ES, 1-p A4C 38 ml/m^2 LA volume, ES, 2-p 61 ml LA volume/bsa, ES, 2-p 32 ml/m^2 LA/aortic root ratio 1.64 Mitral valve Value Reference Mitral E-wave peak velocity 1.35 m/sec Mitral A-wave peak velocity 0.79 m/sec Mitral deceleration time 168 ms 150 - 230 Mitral pressure half-time 49 ms Mitral peak gradient, D 7.3 mm Hg Mitral E/A ratio, peak 1.7 Mitral valve area, PHT, DP 4.5 cm^2 Mitral peak LV-LA gradient, S 85.7 mm Hg Mitral maximal regurg velocity, PISA 4.63 m/sec Mitral regurg VTI, PISA 160.7 cm Pulmonary veins Value Reference Pulmonary vein peak velocity, S 0.41 m/sec Pulmonary vein peak velocity, D 0.83 m/sec Pulmonary vein velocity ratio, peak, 0.5 S/D Pulmonary vein A-wave reversal peak 0.25 m/sec velocity Tricuspid valve Value Reference Tricuspid regurg peak velocity 2.8 m/sec Tricuspid peak RV-RA gradient 31.8 mm Hg Right atrium Value Reference RA area, ES, A4C (H) 20.5 cm^2 8.3 - 19.5 Legend: (L) and (H) deedee values outside specified reference range. I have personally reviewed the images and have reviewed and edited the reported findings. Electronically signed by Mark Gamez 05/22/2019 11:22
[2019-05-22] MEDS: Magnesium Oxide 400 MG TAB 800 MG PO (10:27)
--- NOTE | 2019-05-22 11:30 | PHARADMIT ---
Admission Pharmacy Clinical Review SOB, COPD Code Status DNR/DNI Current Weight Wgt-79.9 kg Renally Cleared and Narrow Therapeutic Index Meds CrCl~ 21.6 mL/min Meds-OK QTc Value / Action Taken QTc-452 (Protonix, ) BP Control, Fever BP-117/48 Tmax-37.1C Electrolytes reviewed Na- 138 K+5.4 Mag-1.7 DVT Prophylaxis Eliquis, Plavix Opiate Usage / Scheduled Bowel Regimen Ordered Yes No Plt/SCr for Heparin / Enoxaparin Plts-337 SCr-1.80 INR for Warfarin inr-1.0 H/H stable, WBC/Bands H&H- 9.9/33.4 WBC- 20.09 Antibiotic appropriateness none Cultures and Sensitivities none Surgical ABX d/c within 24 hr na DM control / Insulin Dosing BG- 298 Aspart, lantus Heart Failure (Check EF%) (JENNIFER's, B-Block, Diuretics) Norvasc, ISDN, Hydralazine, Toprol-XL, NTG IV to PO Switch No Home Meds Reviewed Yes Home Meds Not Ordered Lispro, Comments
--- NOTE | 2019-05-22 11:50 | DI.RAD_ITS ---
EXAM: XR CHEST 2V PA LATERAL INDICATION: Leukocytosis, Hx CHF, COPD. COMPARISON: XR CHEST 2V PA LATERAL from 05/20/2019 TECHNIQUE: 2D digital imaging was performed. FINDINGS: The heart is mildly enlarged. Lungs appear generally clear with no focal consolidation. No pleural ef fusion seen. IMPRESSION: Mild cardiomegaly, no evidence of acute CHF.
[2019-05-22] MEDS: Normal Saline 1,000 ML 75 ML IV (12:31)
[2019-05-22 12:37] LABS: Potassium 4.9 mmol/L (3.5-5.1)
--- NOTE | 2019-05-22 12:44 | W.PM.PROGNOT ---
Date of Service Date of service: 05/22/19 Time of Service: 12:45 Assessment and Plan Assessment and plan (1) SOB (shortness of breath): Status: Acute Assessment and plan: Appears to have been a COPD exacerbation, although the patient also received lasix. BNP was only minimally elevated, with Xray not showing signs of gross volume overload. Given evidence of rhonchi today a repeat CXR was ordered and still pending, with ECHO performed showing evidence of likely diastolic dysfunction only, with normal RV and LV function and no significant valvulopathy. - Continue steroids with change to oral prednisone. No indication for antibiotics. Continue nebs. - Leukocytosis today likely in setting of high steroid use. No evidence of fever or infection. Repeat CXR as above. - ECHO essentially rules out CHF as etiology for patient's symptoms. (2) DARION (acute kidney injury): Status: Acute Assessment and plan: In setting of diuresis, along with likely underlying CKD - baseline creatinine uncertain. Will attempt gentle hydration, especially with mild hyperkalemia - repeat normalized. (3) CAD (coronary artery disease): Status: Chronic Assessment and plan: Prior history of numerous stents, exact details unknown. ECG appears non-ischemic and troponin negative. - Continue statin, Clopidogrel, long-acting nitrate, BB. Also on anticoagulation with low dose Apixaban. - Current Chest Pain is reproducible and chest wall pain. (4) Hypothyroidism: Status: Chronic Assessment and plan: Continue replacement therapy. (5) Diabetes mellitus: Status: Chronic Assessment and plan: Continue insulin, Sliding scale, and ADA diet. (6) DVT prophylaxis: Status: Acute Assessment and plan: On chronic anticoagulation. Continue PPI therapy. Subjective Subjective Interval history since last seen: 79 year old woman with a prior history of COPD, admitted from [facility] with a diagnosis of COPD exacerbation. Mrs. Bean has a prior history of CAD with reported 8 previous stents, prior DVT, Carotid Artery Disease s/p CEA, DM, Hypothyroidism, HTN, CKD, and PAF. She also has note of a CHF history with an intact LVEF. The patient presented with a reported dyspnea over 1-2 days, and noted in the ED to be wheezing. Her labwork was remarkable for a mildly elevated Creatinine, with an unknown baseline, as well mild anemia. Her CXR was unremarkable, but she was noted to have significant wheezing. She was given steroids, nebs, and referred for admission. She was also given a dose of IV Diuretics while in the ED, as potential CHF was in the differential. This morning Mrs. Bean reports feeling well and near baseline from a respiratory standpoint. She complained of recurrent chest pain overnight - found to be completely reproducible and chest wall in etiology, with a reported non-ischemic ECG and negative Troponins. She was also reported an action tremor, now ongiong for over 1 month. Morning labs revealed a mildly worsening creatinine and BUN, as well as a new leukocytosis. Pulmonary exam slightly worse as well. No other overnight events reported. Remains afebrile. Exam Narrative Exam Narrative: General: Patient appears comfortable, AAOX3, NAD Neck: Supple CV: Regular, nontachycardic, no significant rubs, murmurs, or crackles Pulmonary: Mild but diffuse rhonchi, worse at the bases Abdomen: + Bowel Sounds, soft, nontender, nondistended Vascular: No lower extremity edema Psych: Normal mood and affect. Objective Objective Clinical Data: Abnormal lab results 05/21/19 05/22/19 05/22/19 Range/Units 10:55 06:37 06:37 WBC 20.09 H D (4.4-10.8) k/cumm RBC 3.88 L (4.00-5.20) m/cumm Hgb 9.5 L 9.9 L (12.0-15.5) g/dL Hct 32.5 L 33.4 L (36.0-46.0) % MCH 24.5 L 24.3 L (27.0-33.0) pg MCHC 29.2 L 29.6 L (32.0-36.0) g/dL RDW 15.9 H 16.3 H (11.7-14.6) % Absolute Neutrophils 6.95 H 18.06 H (1.2-6.7) k/cumm Absolute Lymphocytes 1.19 L (1.2-3.4) k/cumm Potassium 5.4 H (3.5-5.1) mmol/L BUN 52 H D (7-18) mg/dL Creatinine 1.80 H (0.55-1.02) mg/dL Glucose 298 H D (70-100) mg/dL Magnesium 1.7 L (1.8-2.4) mg/dL Vital Signs Temperature 36.7 C 05/21/19 23:00 Temperature Source Temporal Artery Scan 05/21/19 23:00 Pulse 71 05/22/19 06:01 Pulse Rhythm Regular 05/22/19 09:16 Pulse 76 05/22/19 08:10 Respiratory Rate 17 05/22/19 08:10 Respiratory Effort Non-Labored 05/22/19 09:16 Respiratory Depth Normal 05/22/19 09:16 Respiratory Pattern Normal 05/22/19 09:16 Blood Pressure 117/48 L 05/22/19 06:01 Blood Pressure Mean 64 05/22/19 06:01 Pulse Oximetry 98 05/22/19 08:10 Oxygen Delivery Method Room Air 05/22/19 00:43 Oxygen Flow Rate 0 05/22/19 00:43 Pain Level 0 05/21/19 23:00 Comment 05/21/19 18:00 Intake & Output 05/21/19 05/22/19 05/22/19 23:59 11:59 23:59 Intake Total 0 / 1989 150 / 150 Output Total 900 / 1800 Balance 310 / 190 150 / 150 Weight 79.6 kg 79.9 kg Intake: Oral 1209 150 / 150 Output: Urine 900 / 1800 Other: Urine Color Yellow Urine Appearance Clear Urine Odor Strong Voiding Methods Toilet Laboratory Results WBC 20.09 k/cumm (4.4-10.8) H D 05/22/19 06:37 RBC 4.08 m/cumm (4.00-5.20) 05/22/19 06:37 Hgb 9.9 g/dL (12.0-15.5) L 05/22/19 06:37 Hct 33.4 % (36.0-46.0) L 05/22/19 06:37 MCV 81.9 fL (80-95) 05/22/19 06:37 MCH 24.3 pg (27.0-33.0) L 05/22/19 06:37 MCHC 29.6 g/dL (32.0-36.0) L 05/22/19 06:37 RDW 16.3 % (11.7-14.6) H 05/22/19 06:37 Plt Count 337 x1000/uL (130-400) 05/22/19 06:37 MPV 10.8 fL (8.0-11.0) 05/22/19 06:37 Immature Gran % 0.6 05/22/19 06:37 Neutrophils % 89.9 05/22/19 06:37 Lymphocytes % 5.9 05/22/19 06:37 Monocytes % 3.5 05/22/19 06:37 Eosinophils % 0.0 05/22/19 06:37 Basophils % 0.1 05/22/19 06:37 Absolute Neutrophils 18.06 k/cumm (1.2-6.7) H 05/22/19 06:37 Absolute Lymphocytes 1.19 k/cumm (1.2-3.4) L 05/22/19 06:37 Absolute Monocytes 0.70 k/cumm (0.11-0.7) 05/22/19 06:37 Absolute Eosinophils 0.00 k/cumm (0.0-0.7) 05/22/19 06:37 Absolute Basophils 0.02 k/cumm (0.0-0.2) 05/22/19 06:37 Differential Comment Agrees w/ instrument 05/22/19 06:37 RBC Morphology See below 05/22/19 06:37 Polychromasia Present 05/22/19 06:37 Hypochromasia 1+ 05/22/19 06:37 Poikilocytosis 1+ 05/22/19 06:37 Anisocytosis 1+ 05/22/19 06:37 Microcytosis 2+ 05/22/19 06:37 PT 9.9 sec (9.3-11.0) 05/20/19 19:50 INR 1.0 (0.9-1.1) 05/20/19 19:50 APTT 28.1 sec (21.0-31.4) 05/20/19 19:50 Sodium 138 mmol/L (136-145) 05/22/19 06:37 Potassium 4.9 mmol/L (3.5-5.1) 05/22/19 12:05 Chloride 100 mmol/L (98-107) 05/22/19 06:37 Carbon Dioxide 27.4 mmol/L (21.0-32.0) 05/22/19 06:37 Anion Gap 10.6 mmol/L (3-11) 05/22/19 06:37 BUN 52 mg/dL (7-18) H D 05/22/19 06:37 Creatinine 1.80 mg/dL (0.55-1.02) H 05/22/19 06:37 Estimated GFR/1.73 m2 27.28 (mL/min/1.73m2) 05/22/19 06:37 Glucose 298 mg/dL (70-100) H D 05/22/19 06:37 Calcium 8.9 mg/dL (8.5-10.1) 05/22/19 06:37 Magnesium 1.7 mg/dL (1.8-2.4) L 05/22/19 06:37 Total Bilirubin 0.3 mg/dL (0.2-1.0) 05/20/19 19:50 AST 15 U/L (15-37) 05/20/19 19:50 ALT 20 U/L (14-59) 05/20/19 19:50 Alkaline Phosphatase 120 U/L (46-116) H 05/20/19 19:50 Troponin I < 0.05 ng/mL (0.00-0.06) 05/21/19 22:09 NT-Pro-B Natriuret Pep 382 pg/mL (-299) H 05/20/19 19:50 Total Protein 8.6 g/dL (6.4-8.2) H 05/20/19 19:50 Albumin 3.6 g/dL (3.4-5.0) 05/20/19 19:50
[2019-05-22] MEDS: Albuterol/Ipratropium 3 ML UPD VIAL UPD ×3 (13:12→23:49)
--- NOTE | 2019-05-22 14:42 | NUR.NOTE ---
Nursing Note: Pt transferred to room 207 from ICU. Pt A&Ox3, pleasant, cooperative. LS diminished, no respiratory distress noted. HR irregular. BS positive Oriented to room, call delgado given.
[2019-05-22 18:28] LABS: Glucose 411 mg/dL (70-100)
[2019-05-22] MEDS: Atorvastatin 40 MG TAB PO (21:30)
[2019-05-23] VITALS (12 sets, daily range): BP systolic 170–177; BP diastolic 65–69; PULSE 80–88; RESP 1–25; TEMP 36.3–37.4; O2SAT 88–96
[2019-05-23] MEDS: Normal Saline 1,000 ML 75 ML IV (00:58)
[2019-05-23] MEDS: Albuterol/Ipratropium 3 ML UPD VIAL UPD ×3 (06:14→18:18)
[2019-05-23] MEDS: Levothyroxine 112 MCG TAB PO (06:14)
[2019-05-23] MEDS: Pantoprazole 40 MG TABCR PO (07:36)
[2019-05-23] MEDS: Normal Saline Flush 10 ML SYR IVP ×2 (07:36→20:57)
[2019-05-23 07:38] LABS: Abs Immature Grans 0.18 k/cumm (0.0-0.09); Absolute Lymphocyte Count 1.28 k/cumm (1.2-3.4); Absolute Monocyte Count 0.78 k/cumm (0.11-0.7); HCT 34.7 % (36.0-46.0); Immature Grans % 0.8; Lymphocytes % 5.9; Mean Corp. HGB Concentration 28.8 g/dL (32.0-36.0); Mean Corpuscular Hemoglobin 23.9 pg (27.0-33.0); Mean Platelet Volume 10.6 fL (8.0-11.0); Monocytes % 3.6; Neutrophils % 89.7; Platelet Count 327 x1000/uL (130-400); RBC 4.18 m/cumm (4.00-5.20); RBC Distribution Width 16.6 % (11.7-14.6); White Blood Cell Count 21.64 k/cumm (4.4-10.8)
[2019-05-23 07:39] LABS: Absolute Neutrophil Count 19.41 k/cumm (1.2-6.7)
[2019-05-23 08:00] LABS: Anion Gap 10.7 mmol/L (3-11); BUN 64 mg/dL (7-18); CO2 25.3 mmol/L (21.0-32.0); CREATININE 1.81 mg/dL (0.55-1.02); Calcium 8.9 mg/dL (8.5-10.1); Chloride 101 mmol/L (98-107); Estimated GFR 27.11 (mL/min/1.73m2); Glucose 354 mg/dL (70-100); Magnesium 2.3 mg/dL (1.8-2.4); Potassium 5.5 mmol/L (3.5-5.1); Sodium 137 mmol/L (136-145); TSH 0.03 uIU/mL (0.36-3.74)
[2019-05-23] MEDS: Insulin Aspart 300 UNITS/3 ML PEN SC ×3 (08:27→17:00)
[2019-05-23] MEDS: Clopidogrel 75 MG TAB PO (08:35)
[2019-05-23] MEDS: hydrALAZINE 25 MG TAB PO ×3 (08:35→19:44)
[2019-05-23] MEDS: predniSONE 20 MG TAB 40 MG PO ×2 (08:35→19:42)
[2019-05-23] MEDS: PARoxetine 20 MG TAB PO (08:36)
[2019-05-23] MEDS: Isosorbide Dinitrate 10 MG TAB 30 MG PO ×2 (08:36→19:42)
[2019-05-23] MEDS: Metoprolol CR 25 MG TABCR PO (08:37)
[2019-05-23] MEDS: Gabapentin 300 MG CAP 900 MG PO ×3 (08:37→19:43)
[2019-05-23] MEDS: Ferrous Sulfate 325 MG TAB PO (08:37)
[2019-05-23] MEDS: Cholecalciferol (Vitamin D3) 1,000 UNIT TAB 1000 UNITS PO (08:37)
[2019-05-23] MEDS: Apixaban 2.5 MG TAB PO ×2 (08:38→19:44)
[2019-05-23] MEDS: amLODIPine 2.5 MG TAB PO (08:38)
[2019-05-23] MEDS: busPIRone 15 MG TAB 7.5 MG PO (08:38)
[2019-05-23] MEDS: Insulin Glargine 300 UNITS/3 ML PEN 70 UNITS SC (09:15)
[2019-05-23] MEDS: SODIUM CHLORIDE 0.45% 1,000 ML 100 ML IV (09:22)
[2019-05-23] MEDS: Albuterol 2.5 MG/3 ML INH SOLN VIAL UPD (10:59)
[2019-05-23 12:46] LABS: Glucose 412 mg/dL (70-100)
--- NOTE | 2019-05-23 13:43 | PGE_ITS ---
Date of Service Date of service: 05/23/19 Time of Service: 13:44 Assessment and Plan Assessment and plan (1) SOB (shortness of breath): Status: Acute Assessment and plan: Appears to have been a COPD exacerbation, although the patient also received lasix. BNP was only minimally elevated, with Xray not showing signs of gross volume overload and ECHO with Diastolic dysfunction only, with normal ventricular systolic function. However, patient's symptoms and exam are worsening with gentle hydration, making her symptoms highly likely to be Cardiac and CHF in origin. - Continue steroids with change to oral prednisone. No indication for antibiotics. Continue nebs. - Leukocytosis today likely in setting of high steroid use. CXR yesterday negative, and afebrile. Will check urinalysis as well. - Given above findings, and given DARION will discontinue fluids, and aim for gentle diuresis with Furosemide gtt, with careful monitoring of potassium and renal function. Repeat BMP in 4 hours. (2) DARION (acute kidney injury): Status: Acute Assessment and plan: In setting of diuresis, along with likely underlying CKD - baseline creatinine uncertain. Did not improve with gentle hydration, and patient's pulmonary symptoms worsened as well. Gentle diuresis above, with close monitoring of renal function. (3) CAD (coronary artery disease): Status: Chronic Assessment and plan: Prior history of numerous stents, exact details unknown. ECG appears non-ischemic and troponin negative. - Continue statin, Clopidogrel, long-acting nitrate, BB. Also on anticoagulation with low dose Apixaban. - Prior Chest Pain is reproducible and chest wall pain. (4) Hypothyroidism: Status: Chronic Assessment and plan: Given patient's tremors TSH was checked and markedly low - will hold levothyroxine currently, and plan on reinitiating at lower dose with follow-up TSH and symptoms within a few weeks. (5) Diabetes mellitus: Status: Chronic Assessment and plan: Continue insulin, Sliding scale, and ADA diet. (6) DVT prophylaxis: Status: Acute Assessment and plan: On chronic anticoagulation. Continue PPI therapy. Subjective Subjective Interval history since last seen: 79 year old woman with a prior history of COPD, admitted from [facility] with a diagnosis of COPD exacerbation. Mrs. Bean has a prior history of CAD with reported 8 previous stents, prior DVT, Carotid Artery Disease s/p CEA, DM, Hypothyroidism, HTN, CKD, and PAF. She also has note of a CHF history with an intact LVEF. The patient presented with a reported dyspnea over 1-2 days, and noted in the ED to be wheezing. Her labwork was remarkable for a mildly elevated Creatinine, with an unknown baseline, as well mild anemia. Her CXR was unremarkable, but she was noted to have signif icant wheezing along with crackles on exam. She was given steroids, nebs, and referred for admission. She was also given a dose of IV Diuretics while in the ED, as potential CHF was in the differential. Following Mrs. Bean reported feeling well and near baseline from a respiratory standpoint initially, but with a worsening creatinine and BUN following initial diuresis. Her ECHO returned as with high ventricular pressures and thus likely Diastolic Dysfunction, but without lV or RV systolic heart failure. Attempt at gentle hydration was undertaken but with continued DARION, worsening BUN, and ev idence of mild hyperkalemia. CXR was also checked and without evidence for CHF. This morning her pulmonary exam is worsened, and she is again requiring Oxygen. She complained of recurrent chest pain previously - found to be completely reproducible and chest wall in etiology, with a reported non-ischemic ECG and negative Troponins. She was also reported a significant tremor, now ongiong for over 1 month. No other overnight events reported. Remains afebrile. Exam Narrative Exam Narrative: General: Patient appears comfortable, AAOX3, NAD Neck: Supple CV: Regular, nontachycardic, no significant rubs, murmurs, or crackles Pulmonary: worsening bibasilar crackles and rhonchi, no wheezing. Abdomen: + Bowel Sounds, soft, nontender, nondistended Vascular: Mild b/l lower extremity edema Psych: Normal mood and affect. Objective Objective Clinical Data: Abnormal lab results 05/22/19 05/23/19 05/23/19 Range/Units 17:52 07:18 07:18 WBC 21.64 H (4.4-10.8) k/cumm Hgb 10.0 L (12.0-15.5) g/dL Hct 34.7 L (36.0-46.0) % MCH 23.9 L (27.0-33.0) pg MCHC 28.8 L (32.0-36.0) g/dL RDW 16.6 H (11.7-14.6) % Absolute Neutrophils 19.41 H (1.2-6.7) k/cumm Absolute Monocytes 0.78 H (0.11-0.7) k/cumm Potassium 5.5 H (3.5-5.1) mmol/L BUN 64 H D (7-18) mg/dL Creatinine 1.81 H (0.55-1.02) mg/dL Glucose 411 H D 354 H (70-100) mg/dL TSH 0.03 L (0.36-3.74) uIU/mL 05/23/19 Range/Units 12:20 WBC (4.4-10.8) k/cumm Hgb (12.0-15.5) g/dL Hct (36.0-46.0) % MCH (27.0-33.0) pg MCHC (32.0-36.0) g/dL RDW (11.7-14.6) % Absolute Neutrophils (1.2-6.7) k/cumm Absolute Monocytes (0.11-0.7) k/cumm Potassium (3.5-5.1) mmol/L BUN (7-18) mg/dL Creatinine (0.55-1.02) mg/dL Glucose 412 H (70-100) mg/dL TSH (0.36-3.74) uIU/mL Vital Signs Temperature 37.4 C 05/23/19 07:32 Temperature Source Tympanic 05/23/19 07:32 Pulse 80 05/23/19 13:12 Pulse Rhythm Regular 05/23/19 07:39 Pulse 76 05/22/19 08:10 Respiratory Rate 24 05/23/19 13:12 Respiratory Effort Non-Labored 05/23/19 07:39 Respiratory Depth Shallow 05/23/19 07:39 Respiratory Pattern Tachypnea 05/23/19 07:39 Blood Pressure 170/69 H 05/23/19 07:32 Blood Pressure Mean 69 05/22/19 13:48 Pulse Oximetry 91 L 05/23/19 13:12 Oxygen Delivery Method Room Air 05/23/19 12:58 Oxygen Flow Rate 0 05/23/19 12:58 Pain Level 0 05/23/19 07:32 Comment 05/21/19 18:00 Intake & Output 05/22/19 05/23/19 05/23/19 23:59 11:59 23:59 Intake Total 480 / 630 2601.25 / 2601.25 Output Total 700 / 700 Balance 480 / 430 1901.25 / 1901.25 Weight 79 kg Intake: IV 1511.25 / 1511.25 Oral 480 / 630 1090 / 1090 Output: Urine 700 / 700 Other: Urine Color Yellow Urine Appearance Clear Clear Urine Odor Normal Stool Size Large Moderate Stool Characteristics Soft Formed Formed Voiding Methods Toilet Laboratory Results WBC 21.64 k/cumm (4.4-10.8) H 05/23/19 07:18 RBC 4.18 m/cumm (4.00-5.20) 05/23/19 07:18 Hgb 10.0 g/dL (12.0-15.5) L 05/23/19 07:18 Hct 34.7 % (36.0-46.0) L 05/23/19 07:18 MCV 83.0 fL (80-95) 05/23/19 07:18 MCH 23.9 pg (27.0-33.0) L 05/23/19 07:18 MCHC 28.8 g/dL (32.0-36.0) L 05/23/19 07:18 RDW 16.6 % (11.7-14.6) H 05/23/19 07:18 Plt Count 327 x1000/uL (130-400) 05/23/19 07:18 MPV 10.6 fL (8.0-11.0) 05/23/19 07:18 Immature Gran % 0.8 05/23/19 07:18 Neutrophils % 89.7 05/23/19 07:18 Lymphocytes % 5.9 05/23/19 07:18 Monocytes % 3.6 05/23/19 07:18 Eosinophils % 0.0 05/23/19 07:18 Basophils % 0.0 05/23/19 07:18 Absolute Neutrophils 19.41 k/cumm (1.2-6.7) H 05/23/19 07:18 Absolute Lymphocytes 1.28 k/cumm (1.2-3.4) 05/23/19 07:18 Absolute Monocytes 0.78 k/cumm (0.11-0.7) H 05/23/19 07:18 Absolute Eosinophils 0.00 k/cumm (0.0-0.7) 05/23/19 07:18 Absolute Basophils 0.00 k/cumm (0.0-0.2) 05/23/19 07:18 Differential Comment Agrees w/ instrument 05/22/19 06:37 RBC Morphology See below 05/22/19 06:37 Polychromasia Present 05/22/19 06:37 Hypochromasia 1+ 05/22/19 06:37 Poikilocytosis 1+ 05/22/19 06:37 Anisocytosis 1+ 05/22/19 06:37 Microcytosis 2+ 05/22/19 06:37 PT 9.9 sec (9.3-11.0) 05/20/19 19:50 INR 1.0 (0.9-1.1) 05/20/19 19:50 APTT 28.1 sec (21.0-31.4) 05/20/19 19:50 Sodium 137 mmol/L (136-145) 05/23/19 07:18 Potassium 5.5 mmol/L (3.5-5.1) H 05/23/19 07:18 Chloride 101 mmol/L (98-107) 05/23/19 07:18 Carbon Dioxide 25.3 mmol/L (21.0-32.0) 05/23/19 07:18 Anion Gap 10.7 mmol/L (3-11) 05/23/19 07:18 BUN 64 mg/dL (7-18) H D 05/23/19 07:18 Creatinine 1.81 mg/dL (0.55-1.02) H 05/23/19 07:18 Estimated GFR/1.73 m2 27.11 (mL/min/1.73m2) 05/23/19 07:18 Glucose 412 mg/dL (70-100) H 05/23/19 12:20 Calcium 8.9 mg/dL (8.5-10.1) 05/23/19 07:18 Magnesium 2.3 mg/dL (1.8-2.4) 05/23/19 07:18 Total Bilirubin 0.3 mg/dL (0.2-1.0) 05/20/19 19:50 AST 15 U/L (15-37) 05/20/19 19:50 ALT 20 U/L (14-59) 05/20/19 19:50 Alkaline Phosphatase 120 U/L (46-116) H 05/20/19 19:50 Troponin I < 0.05 ng/mL (0.00-0.06) 05/21/19 22:09 NT-Pro-B Natriuret Pep 382 pg/mL (-299) H 05/20/19 19:50 Total Protein 8.6 g/dL (6.4-8.2) H 05/20/19 19:50 Albumin 3.6 g/dL (3.4-5.0) 05/20/19 19:50 TSH 0.03 uIU/mL (0.36-3.74) L 05/23/19 07:18
--- NOTE | 2019-05-23 14:42 | CHAPLAIN ---
Karina was having her vital signs checked by her nurse when I stopped in. She was sitting up in her bed. Karina had been transferred to the ICU for chest pains, and then transferred back to Med/Surg. Karina tells me that she moved her from [facility] to live with her daughter. She can't remember which town her daughter lives in, but knows it's not [place] She said she has no other relatives around here.
[2019-05-23 16:17] LABS: Bilirubin Negative (Negative); Blood Trace-intact (Negative); Clarity Clear (Clear); Glucose 500 mg/dL (Negative); Ketones Negative (Negative); Leukocyte Esterase Small (Negative); Nitrite Negative (Negative); Specific Gravity <= 1.005 (1.005-1.025); Urobilinogen 0.2 EU/dL (Up TO 0.2); pH 5.5 (5-8)
[2019-05-23 16:28] LABS: Anion Gap 9.4 mmol/L (3-11); BUN 58 mg/dL (7-18); CO2 26.6 mmol/L (21.0-32.0); CREATININE 1.85 mg/dL (0.55-1.02); Calcium 8.8 mg/dL (8.5-10.1); Chloride 98 mmol/L (98-107); Estimated GFR 26.43 (mL/min/1.73m2); Glucose 367 mg/dL (70-100); Potassium 5.5 mmol/L (3.5-5.1); Sodium 134 mmol/L (136-145)
[2019-05-23 16:42] LABS: Bacteria Few HPF (Negative); C & S Indicated? No/Sq. Contamination; Casts Negative LPF (Negative); Crystals Negative HPF (Negative); Epithelial Cells Moderate HPF (Negative); Mucus Negative (Negative); Other Cells Few Renal (Negative); RBC Negative (0-2); WBC 20-50 HPF (0-5)
--- NOTE | 2019-05-23 16:49 | PDOC.CMPRO ---
- If Service Date Differs Date of service: 05/23/19 Time of Service: 16:49 Care Management Progress Note S/O: Karina was lying in bed during the conversation with CM. She reported that she was having some breathing trouble but that the nurses were attending to her needs. She stated that her daughter, Fina, who she lives with, takes care of her at home. Karina will continue to be closely monitored and treated at this time. CM continues to follow. A: 79 year old female admitted to [facility] 05/20/19 for SOB, COPD P: Karina will continue to be closely monitored and treated at this time. CM will continue to follow and support discharge planning considerations. Anticipate Karina will return home with no additional services at this time and transport via private vehicle with her daughter, Fina.
[2019-05-23] MEDS: Acetaminophen 325 MG TAB 650 MG PO (19:41)
[2019-05-23] MEDS: cefTRIAXone 1 GM/50 ML BAG IVPB (20:51)
[2019-05-23 21:30] LABS: Potassium 5.1 mmol/L (3.5-5.1)
[2019-05-23] MEDS: Insulin Glargine 300 UNITS/3 ML PEN 50 UNITS SC (21:48)
[2019-05-23] MEDS: Atorvastatin 40 MG TAB PO (22:01)
[2019-05-24] VITALS (16 sets, daily range): BP systolic 129–153; BP diastolic 50–70; PULSE 63–75; RESP 2–20; TEMP 36.2–37.1; O2SAT 90–145
[2019-05-24] MEDS: Albuterol/Ipratropium 3 ML UPD VIAL UPD ×5 (00:18→23:43)
[2019-05-24] MEDS: predniSONE 20 MG TAB 40 MG PO ×2 (07:29→19:26)
[2019-05-24] MEDS: busPIRone 15 MG TAB 7.5 MG PO (07:29)
[2019-05-24] MEDS: PARoxetine 20 MG TAB PO (07:29)
[2019-05-24] MEDS: Cholecalciferol (Vitamin D3) 1,000 UNIT TAB 1000 UNITS PO (07:30)
[2019-05-24] MEDS: Gabapentin 300 MG CAP 900 MG PO ×3 (07:30→19:27)
[2019-05-24] MEDS: Clopidogrel 75 MG TAB PO (07:30)
[2019-05-24] MEDS: Pantoprazole 40 MG TABCR PO (07:30)
[2019-05-24] MEDS: Apixaban 2.5 MG TAB PO ×2 (07:31→19:26)
[2019-05-24] MEDS: Ferrous Sulfate 325 MG TAB PO (07:31)
[2019-05-24] MEDS: hydrALAZINE 25 MG TAB PO ×3 (07:32→19:26)
[2019-05-24] MEDS: Isosorbide Dinitrate 10 MG TAB 30 MG PO ×2 (07:32→19:26)
[2019-05-24] MEDS: Metoprolol CR 25 MG TABCR PO (07:32)
[2019-05-24] MEDS: amLODIPine 2.5 MG TAB PO (07:32)
[2019-05-24 08:09] LABS: Abs Immature Grans 0.15 k/cumm (0.0-0.09); Basophils % 0.1; HCT 32.4 % (36.0-46.0); HGB 9.5 g/dL (12.0-15.5); Immature Grans % 0.8; Lymphocytes % 5.6; Mean Corp. HGB Concentration 29.3 g/dL (32.0-36.0); Mean Corpuscular Hemoglobin 24.2 pg (27.0-33.0); Mean Corpuscular Volume 82.4 fL (80-95); Monocytes % 4.7; Neutrophils % 88.8; Platelet Count 327 x1000/uL (130-400); RBC 3.93 m/cumm (4.00-5.20); RBC Distribution Width 16.5 % (11.7-14.6); White Blood Cell Count 19.63 k/cumm (4.4-10.8)
[2019-05-24 08:10] LABS: Absolute Basophil Count 0.02 k/cumm (0.0-0.2); Absolute Monocyte Count 0.92 k/cumm (0.11-0.7); Absolute Neutrophil Count 17.43 k/cumm (1.2-6.7)
[2019-05-24 08:16] LABS: Anion Gap 9.4 mmol/L (3-11); BUN 63 mg/dL (7-18); CO2 29.6 mmol/L (21.0-32.0); CREATININE 1.83 mg/dL (0.55-1.02); Calcium 9.2 mg/dL (8.5-10.1); Chloride 100 mmol/L (98-107); Estimated GFR 26.77 (mL/min/1.73m2); Glucose 286 mg/dL (70-100); Magnesium 2.1 mg/dL (1.8-2.4); Potassium 5.3 mmol/L (3.5-5.1); Sodium 139 mmol/L (136-145)
[2019-05-24] MEDS: Insulin Aspart 300 UNITS/3 ML PEN SC ×4 (08:20→21:38)
[2019-05-24] MEDS: Insulin Glargine 300 UNITS/3 ML PEN 70 UNITS SC (08:21)
--- NOTE | 2019-05-24 10:07 | CMPROGNOTE_ITS ---
- If Service Date Differs Date of service: 05/24/19 Time of Service: 10:07 Care Management Progress Note S/O: Karina was sitting up in a chair when CM came to visit. She was pleasant and readily agreed to conversing about her care. Karina informed me that she had decided that she would proceed with dialysis; she already has a shunt in place. She explained that she had been afraid because her brother also had kidney disease and 2 weeks after starting dialysis. She said she now understands that his case was different than hers and she is no longer afraid. Karina sated that she likes it here at [facility] and enjoys the food. A: 79 year old female admitted to [facility] 05/20/19 for SOB, COPD P: Karina will continue to be closely monitored and treated at this time. After discharge she may begin hemodialysis for CKD. CM will continue to follow and support discharge planning considerations. Anticipate Karina will return home and transport via private vehicle with her daughter, Fina, with whom she lives.
[2019-05-24] MEDS: Insulin Aspart 300 UNITS/3 ML PEN 15 UNITS SC ×2 (12:11→17:07)
[2019-05-24] MEDS: Acetaminophen 325 MG TAB 650 MG PO (13:33)
--- NOTE | 2019-05-24 14:45 | W.PM.PROGNOT ---
Date of Service Date of service: 05/24/19 Time of Service: 14:45 Assessment and Plan Assessment and plan (1) SOB (shortness of breath): Status: Acute Assessment and plan: Combination of acute exacerbation of COPD, acute on chronic diastolic CHF, as well as fluid overload from kidney disease. I suspect that the patient's baseline creatinine is higher than the one we are seeing on our labs and at some point she, in fact, was deemed to require dialysis in the future. Obtain medical records from [facility]. For now, continue steroids, lasix gtt. Monitor I/O's and daily weights. Leucocytosis is likely due to the steroids. We are no longer worried about Cr not being normal given the history of CKD. (2) DARION (acute kidney injury): Status: Acute Assessment and plan: As above S/p LUE AV fistula. Obtaining records. (3) CAD (coronary artery disease): Status: Chronic Assessment and plan: s/p numerous stents, exact details unknown. ECG appears non-ischemic and troponin negative. - Continue statin, Clopidogrel, long-acting nitrate, BB, apixaban - Prior Chest Pain is reproducible and chest wall pain. (4) Hypothyroidism: Status: Chronic Assessment and plan: With iatrogenic hyperthyroidism - continue to hold synthroid. (5) Diabetes mellitus: Status: Chronic Assessment and plan: Continue basal insulin, add prandial insulin, continue corrective insulin, and carb consistent diet. (6) DVT prophylaxis: Status: Acute Assessment and plan: On chronic anticoagulation. Continue PPI therapy. Subjective Subjective Interval history since last seen: Ms Bean states that some time ago (she is not sure when), she had an AV fistula put in to her L wrist because at that time she was told she would eventually need dialysis. Her brother was on dialysis, and she cannot tell me why and does not recall the details of her own chronic kidney disease. She believes that she got her care at the [facility] in [place]. She denies dizziness, chest pain, shortness of breath except with activity (and this is better today), nausea, vomiting. She feels better today. The patient remains on lasix gtt. Exam Narrative Exam Narrative: General: Very pleasant elderly female, laying comfortably nearly flat in bed, no tachypnea noted, poor history provider when it comes to her medical history, A&Ox3 HEENT: EOMI, dry MM Heart: RRR, no m/r/g Lungs: crackles at B bases GI: abdomen is soft, nontender, nondistended Extremities: trace edema BLE's, no c/c; dry skin; L wrist with AV fistula, palpable bruit/thrill Objective Objective Clinical Data: Abnormal lab results 05/23/19 05/23/19 05/24/19 Range/Units 15:20 16:10 07:18 WBC (4.4-10.8) k/cumm RBC (4.00-5.20) m/cumm Hgb (12.0-15.5) g/dL Hct (36.0-46.0) % MCH (27.0-33.0) pg MCHC (32.0-36.0) g/dL RDW (11.7-14.6) % Absolute Neutrophils (1.2-6.7) k/cumm Absolute Lymphocytes (1.2-3.4) k/cumm Absolute Monocytes (0.11-0.7) k/cumm Sodium 134 L (136-145) mmol/L Potassium 5.5 H 5.3 H (3.5-5.1) mmol/L BUN 58 H 63 H (7-18) mg/dL Creatinine 1.85 H 1.83 H (0.55-1.02) mg/dL Glucose 367 H 286 H (70-100) mg/dL Urine Blood Trace-intact H (Negative) Ur Leukocyte Esterase Small H (Negative) Urine Glucose 500 H (Negative) mg/dL 05/24/19 Range/Units 07:18 WBC 19.63 H (4.4-10.8) k/cumm RBC 3.93 L (4.00-5.20) m/cumm Hgb 9.5 L (12.0-15.5) g/dL Hct 32.4 L (36.0-46.0) % MCH 24.2 L (27.0-33.0) pg MCHC 29.3 L (32.0-36.0) g/dL RDW 16.5 H (11.7-14.6) % Absolute Neutrophils 17.43 H (1.2-6.7) k/cumm Absolute Lymphocytes 1.10 L (1.2-3.4) k/cumm Absolute Monocytes 0.92 H (0.11-0.7) k/cumm Sodium (136-145) mmol/L Potassium (3.5-5.1) mmol/L BUN (7-18) mg/dL Creatinine (0.55-1.02) mg/dL Glucose (70-100) mg/dL Urine Blood (Negative) Ur Leukocyte Esterase (Negative) Urine Glucose (Negative) mg/dL Vital Signs Temperature 36.7 C 05/24/19 12:54 Temperature Source Tympanic 05/24/19 12:54 Pulse 67 05/24/19 12:54 Pulse Rhythm Regular 05/24/19 07:40 Pulse 76 05/22/19 08:10 Respiratory Rate 18 05/24/19 12:54 Respiratory Effort Non-Labored 05/24/19 07:40 Respiratory Depth Normal 05/24/19 07:40 Respiratory Pattern Normal 05/24/19 07:40 Blood Pressure 153/69 H 05/24/19 12:54 Blood Pressure Mean 69 05/22/19 13:48 Pulse Oximetry 94 L 05/24/19 13:43 Oxygen Delivery Method Room Air 05/24/19 13:43 Oxygen Flow Rate 0 05/24/19 13:43 Pain Level 10 05/24/19 13:34 Comment 05/21/19 18:00 Intake & Output 05/23/19 05/24/19 05/24/19 23:59 11:59 23:59 Intake Total 968.333 / 3569.583 750 / 1490 740 / 1490 Output Total 1000 / 1700 3400 / 3400 Balance -31.667 / 1869.583 -2650 / -1910 740 / -1910 Weight 79 kg Intake: IV 608.333 / 2119.583 Oral 360 / 1450 750 / 1490 740 / 1490 Output: Urine 1000 / 1700 3400 / 3400 Other: Urine Color Pale Yellow Yellow Urine Appearance Clear Clear Urine Odor Normal Comment Voiding on toilet prior to avila insertion Voiding Methods Toilet Bedside Commode Indwelling Catheter Laboratory Results WBC 19.63 k/cumm (4.4-10.8) H 05/24/19 07:18 RBC 3.93 m/cumm (4.00-5.20) L 05/24/19 07:18 Hgb 9.5 g/dL (12.0-15.5) L 05/24/19 07:18 Hct 32.4 % (36.0-46.0) L 05/24/19 07:18 MCV 82.4 fL (80-95) 05/24/19 07:18 MCH 24.2 pg (27.0-33.0) L 05/24/19 07:18 MCHC 29.3 g/dL (32.0-36.0) L 05/24/19 07:18 RDW 16.5 % (11.7-14.6) H 05/24/19 07:18 Plt Count 327 x1000/uL (130-400) 05/24/19 07:18 MPV 11.0 fL (8.0-11.0) 05/24/19 07:18 Immature Gran % 0.8 05/24/19 07:18 Neutrophils % 88.8 05/24/19 07:18 Lymphocytes % 5.6 05/24/19 07:18 Monocytes % 4.7 05/24/19 07:18 Eosinophils % 0.0 05/24/19 07:18 Basophils % 0.1 05/24/19 07:18 Absolute Neutrophils 17.43 k/cumm (1.2-6.7) H 05/24/19 07:18 Absolute Lymphocytes 1.10 k/cumm (1.2-3.4) L 05/24/19 07:18 Absolute Monocytes 0.92 k/cumm (0.11-0.7) H 05/24/19 07:18 Absolute Eosinophils 0.00 k/cumm (0.0-0.7) 05/24/19 07:18 Absolute Basophils 0.02 k/cumm (0.0-0.2) 05/24/19 07:18 Differential Comment Agrees w/ instrument 05/22/19 06:37 RBC Morphology See below 05/22/19 06:37 Polychromasia Present 05/22/19 06:37 Hypochromasia 1+ 05/22/19 06:37 Poikilocytosis 1+ 05/22/19 06:37 Anisocytosis 1+ 05/22/19 06:37 Microcytosis 2+ 05/22/19 06:37 PT 9.9 sec (9.3-11.0) 05/20/19 19:50 INR 1.0 (0.9-1.1) 05/20/19 19:50 APTT 28.1 sec (21.0-31.4) 05/20/19 19:50 Sodium 139 mmol/L (136-145) 05/24/19 07:18 Potassium 5.3 mmol/L (3.5-5.1) H 05/24/19 07:18 Chloride 100 mmol/L (98-107) 05/24/19 07:18 Carbon Dioxide 29.6 mmol/L (21.0-32.0) 05/24/19 07:18 Anion Gap 9.4 mmol/L (3-11) 05/24/19 07:18 BUN 63 mg/dL (7-18) H 05/24/19 07:18 Creatinine 1.83 mg/dL (0.55-1.02) H 05/24/19 07:18 Estimated GFR/1.73 m2 26.77 (mL/min/1.73m2) 05/24/19 07:18 Glucose 286 mg/dL (70-100) H 05/24/19 07:18 Calcium 9.2 mg/dL (8.5-10.1) 05/24/19 07:18 Magnesium 2.1 mg/dL (1.8-2.4) 05/24/19 07:18 Total Bilirubin 0.3 mg/dL (0.2-1.0) 05/20/19 19:50 AST 15 U/L (15-37) 05/20/19 19:50 ALT 20 U/L (14-59) 05/20/19 19:50 Alkaline Phosphatase 120 U/L (46-116) H 05/20/19 19:50 Troponin I < 0.05 ng/mL (0.00-0.06) 05/21/19 22:09 NT-Pro-B Natriuret Pep 382 pg/mL (-299) H 05/20/19 19:50 Total Protein 8.6 g/dL (6.4-8.2) H 05/20/19 19:50 Albumin 3.6 g/dL (3.4-5.0) 05/20/19 19:50 TSH 0.03 uIU/mL (0.36-3.74) L 05/23/19 07:18 Urine Color Yellow (Yellow) 05/23/19 15:20 Urine Clarity Clear (Clear) 05/23/19 15:20 Urine pH 5.5 (5-8) 05/23/19 15:20 Ur Specific [place] <= 1.005 (1.005-1.025) 05/23/19 15:20 Urine Protein Negative mg/dL (Negative) 05/23/19 15:20 Urine Ketones Negative mg/dL (Negative) 05/23/19 15:20 Urine Blood Trace-intact (Negative) H 05/23/19 15:20 Urine Nitrite Negative (Negative) 05/23/19 15:20 Urine Bilirubin Negative (Negative) 05/23/19 15:20 Urine Urobilinogen 0.2 EU/dL (Up TO 0.2) 05/23/19 15:20 Ur Leukocyte Esterase Small (Negative) H 05/23/19 15:20 Urine RBC Negative (0-2) 05/23/19 15:20 Urine WBC 20-50 HPF (0-5) 05/23/19 15:20 Ur Epithelial Cells Moderate HPF (Negative) 05/23/19 15:20 Urine Crystals Negative HPF (Negative) 05/23/19 15:20 Urine Bacteria Few HPF (Negative) 05/23/19 15:20 Urine Casts Negative LPF (Negative) 05/23/19 15:20 Urine Mucus Negative (Negative) 05/23/19 15:20 Urine Other Few renal (Negative) 05/23/19 15:20 Ur Culture Indicated? No/sq. contamination 05/23/19 15:20 Urine Glucose 500 mg/dL (Negative) H 05/23/19 15:20
[2019-05-24 15:22] LABS: Anion Gap 6.2 mmol/L (3-11); BUN 70 mg/dL (7-18); CO2 30.8 mmol/L (21.0-32.0); CREATININE 1.87 mg/dL (0.55-1.02); Calcium 8.8 mg/dL (8.5-10.1); Chloride 99 mmol/L (98-107); Estimated GFR 26.11 (mL/min/1.73m2); Glucose 240 mg/dL (70-100); Potassium 4.9 mmol/L (3.5-5.1); Sodium 136 mmol/L (136-145)
[2019-05-24] MEDS: cefTRIAXone 1 GM/50 ML BAG IVPB (19:27)
[2019-05-24] MEDS: Atorvastatin 40 MG TAB PO (21:33)
[2019-05-24] MEDS: Insulin Glargine 300 UNITS/3 ML PEN 60 UNITS SC (21:37)
[2019-05-25] VITALS (17 sets, daily range): BP systolic 106–157; BP diastolic 54–70; PULSE 62–72; RESP 1–20; TEMP 36.4–36.7; O2SAT 92–98
[2019-05-25] MEDS: Albuterol/Ipratropium 3 ML UPD VIAL UPD ×4 (06:53→23:25)
[2019-05-25 07:50] LABS: Abs Immature Grans 0.28 k/cumm (0.0-0.09); Absolute Basophil Count 0.02 k/cumm (0.0-0.2); Absolute Lymphocyte Count 1.52 k/cumm (1.2-3.4); Absolute Monocyte Count 1.16 k/cumm (0.11-0.7); Absolute Neutrophil Count 15.97 k/cumm (1.2-6.7); Basophils % 0.1; HCT 35.6 % (36.0-46.0); HGB 10.6 g/dL (12.0-15.5); Immature Grans % 1.5; Mean Corp. HGB Concentration 29.8 g/dL (32.0-36.0); Mean Corpuscular Hemoglobin 24.3 pg (27.0-33.0); Mean Corpuscular Volume 81.7 fL (80-95); Mean Platelet Volume 10.9 fL (8.0-11.0); Monocytes % 6.1; Neutrophils % 84.3; Platelet Count 372 x1000/uL (130-400); RBC 4.36 m/cumm (4.00-5.20); RBC Distribution Width 16.8 % (11.7-14.6); White Blood Cell Count 18.95 k/cumm (4.4-10.8)
[2019-05-25 08:06] LABS: Anion Gap 10.6 mmol/L (3-11); CO2 30.4 mmol/L (21.0-32.0); CREATININE 1.93 mg/dL (0.55-1.02); Calcium 9.6 mg/dL (8.5-10.1); Chloride 98 mmol/L (98-107); Estimated GFR 25.17 (mL/min/1.73m2); Glucose 226 mg/dL (70-100); Magnesium 2.2 mg/dL (1.8-2.4); Potassium 4.6 mmol/L (3.5-5.1); Sodium 139 mmol/L (136-145)
[2019-05-25 08:10] LABS: BUN 81 mg/dL (7-18)
[2019-05-25] MEDS: Insulin Aspart 300 UNITS/3 ML PEN SC ×4 (08:40→21:35)
[2019-05-25] MEDS: Insulin Aspart 300 UNITS/3 ML PEN 15 UNITS SC ×3 (08:40→17:14)
[2019-05-25] MEDS: busPIRone 15 MG TAB 7.5 MG PO (08:42)
[2019-05-25] MEDS: Apixaban 2.5 MG TAB PO ×2 (08:42→20:15)
[2019-05-25] MEDS: Gabapentin 300 MG CAP 900 MG PO ×3 (08:42→20:14)
[2019-05-25] MEDS: Metoprolol CR 25 MG TABCR PO (08:43)
[2019-05-25] MEDS: Pantoprazole 40 MG TABCR PO (08:43)
[2019-05-25] MEDS: PARoxetine 20 MG TAB PO (08:43)
[2019-05-25] MEDS: Isosorbide Dinitrate 10 MG TAB 30 MG PO ×2 (08:43→20:14)
[2019-05-25] MEDS: Ferrous Sulfate 325 MG TAB PO (08:43)
[2019-05-25] MEDS: amLODIPine 2.5 MG TAB PO (08:43)
[2019-05-25] MEDS: Cholecalciferol (Vitamin D3) 1,000 UNIT TAB 1000 UNITS PO (08:43)
[2019-05-25] MEDS: Clopidogrel 75 MG TAB PO (08:44)
[2019-05-25] MEDS: hydrALAZINE 25 MG TAB PO ×3 (08:44→20:15)
[2019-05-25] MEDS: predniSONE 20 MG TAB 40 MG PO (08:44)
[2019-05-25] MEDS: Insulin Glargine 300 UNITS/3 ML PEN 70 UNITS SC (10:49)
--- NOTE | 2019-05-25 10:54 | PDOC.CMPRO ---
- If Service Date Differs Date of service: 05/25/19 Time of Service: 10:54 Care Management Progress Note S/O: Karina was dozing when CM came to see her but quickly woke up. When asked if she was tired, she indicated she was more sleepy and bored than tired. Upon questioning, she admitted she liked to color so CM provided her with a new coloring book and crayons. She immediately sat up and began to color and her tremors became more evident but that did not seem to bother her. Karina states she is feeling better although she does not seem to have a good understanding of her medical history or current illness. A: 79 year old female admitted to [facility] 05/20/19 for SOB, COPD P: Karina will continue to be closely monitored and treated at this time. After discharge she may begin hemodialysis for CKD. CM will continue to follow and support discharge planning considerations. Anticipate Karina will return home and transport via private vehicle with her daughter, Fina, with whom she lives.
[2019-05-25 12:29] LABS: Troponin I 0.09 ng/mL (0.00-0.06)
[2019-05-25] MEDS: Furosemide 40 MG TAB PO (17:15)
--- NOTE | 2019-05-25 19:04 | W.PM.PROGNOT ---
Date of Service Date of service: 05/25/19 Time of Service: 19:04 Assessment and Plan Assessment and plan (1) SOB (shortness of breath): Status: Acute Assessment and plan: Improved. Combination of acute exacerbation of COPD, acute on chronic diastolic CHF, as well as fluid overload from kidney disease. I suspect that the patient's baseline creatinine is higher than the one we are seeing on our labs and at some point she, in fact, was deemed to require dialysis in the future. We are awaiting records from [facility]. The Cr in [place] was closer to 1 - I wonder if it was also diluted. Continue steroid taper, d/c lasix gtt, transition to PO lasix. D/c avila. Leucocytosis is likely due to the steroids. (2) DARION (acute kidney injury): Status: Acute Assessment and plan: As above S/p LUE AV fistula. Obtaining records. (3) CAD (coronary artery disease): Status: Chronic Assessment and plan: s/p numerous stents, exact details unknown. ECG appears non-ischemic and troponin negative. - CP this morning was relieved with nitroglycerin and troponin did bump very slightly, also in setting of worsening creatinine. I am not sure how clinically relevant this chest pain was. She will need outpatient follow up with cardiology. - Continue statin, Clopidogrel, long-acting nitrate, BB, apixaban - Prior Chest Pain is reproducible and chest wall pain. (4) Hypothyroidism: Status: Chronic Assessment and plan: With iatrogenic hyperthyroidism - continue to hold synthroid. (5) Diabetes mellitus: Status: Chronic Assessment and plan: Continue basal bolusl insulin, continue corrective insulin, and carb consistent diet. (6) DVT prophylaxis: Status: Acute Assessment and plan: On chronic anticoagulation. Continue PPI therapy. Subjective Subjective Interval history since last seen: Ms Bean states she feels a lot better today. She states she is not short of breath at all, not even when ambulating. She denies dizziness, chest pain now (but did have it overnight and it was relieved with nitroglycerin), nausea, vomiting. Exam Narrative Exam Narrative: General: Very pleasant elderly female, sitting up in bed, wearing O2, no tachypnea noted, poor history provider when it comes to her medical history, A&Ox3 HEENT: EOMI, dry MM Heart: RRR, no m/r/g Lungs: crackles at B bases - I do not hear improvement GI: abdomen is soft, nontender, nondistended Extremities: trace edema BLE's, no c/c; dry skin; L wrist with AV fistula, palpable bruit/thrill Objective Objective Clinical Data: Abnormal lab results 05/25/19 05/25/19 05/25/19 Range/Units 07:01 07:01 11:55 WBC 18.95 H (4.4-10.8) k/cumm Hgb 10.6 L (12.0-15.5) g/dL Hct 35.6 L (36.0-46.0) % MCH 24.3 L (27.0-33.0) pg MCHC 29.8 L (32.0-36.0) g/dL RDW 16.8 H (11.7-14.6) % Absolute Neutrophils 15.97 H (1.2-6.7) k/cumm Absolute Monocytes 1.16 H (0.11-0.7) k/cumm BUN 81 H* (7-18) mg/dL Creatinine 1.93 H (0.55-1.02) mg/dL Glucose 226 H (70-100) mg/dL Troponin I 0.10 H* 0.09 H* (0.00-0.06) ng/mL Vital Signs Temperature 36.6 C 05/25/19 16:03 Temperature Source Tympanic 05/25/19 16:03 Pulse 67 05/25/19 18:33 Pulse Rhythm Regular 05/25/19 17:06 Pulse 76 05/22/19 08:10 Respiratory Rate 18 05/25/19 18:33 Respiratory Effort 05/25/19 17:06 Respiratory Depth Normal 05/25/19 17:06 Respiratory Pattern Normal 05/25/19 17:06 Blood Pressure 138/61 05/25/19 16:03 Blood Pressure Mean 69 05/22/19 13:48 Pulse Oximetry 96 05/25/19 18:33 Oxygen Delivery Method Room Air 05/25/19 18:33 Oxygen Flow Rate 0 05/25/19 18:33 Pain Level 0 05/25/19 16:03 Comment 05/21/19 18:00 Intake & Output 05/24/19 05/25/19 05/25/19 23:59 11:59 23:59 Intake Total 801.583 / 1551.583 470 / 720 250 / 720 Output Total 1600 / 5000 2050 / 3800 1750 / 3800 Balance -798.417 / -3448.417 -1580 / -3080 -1500 / -3080 Weight 78.9 kg Intake: IV 61.583 / 61.583 Oral 740 / 1490 470 / 720 250 / 720 Output: Urine 1600 / 5000 2050 / 3800 1750 / 3800 Other: Urine Color Yellow Yellow Pale Yellow Urine Appearance Clear Clear Clear Laboratory Results WBC 18.95 k/cumm (4.4-10.8) H 05/25/19 07:01 RBC 4.36 m/cumm (4.00-5.20) 05/25/19 07:01 Hgb 10.6 g/dL (12.0-15.5) L 05/25/19 07:01 Hct 35.6 % (36.0-46.0) L 05/25/19 07:01 MCV 81.7 fL (80-95) 05/25/19 07:01 MCH 24.3 pg (27.0-33.0) L 05/25/19 07:01 MCHC 29.8 g/dL (32.0-36.0) L 05/25/19 07:01 RDW 16.8 % (11.7-14.6) H 05/25/19 07:01 Plt Count 372 x1000/uL (130-400) 05/25/19 07:01 MPV 10.9 fL (8.0-11.0) 05/25/19 07:01 Immature Gran % 1.5 05/25/19 07:01 Neutrophils % 84.3 05/25/19 07:01 Lymphocytes % 8.0 05/25/19 07:01 Monocytes % 6.1 05/25/19 07:01 Eosinophils % 0.0 05/25/19 07:01 Basophils % 0.1 05/25/19 07:01 Absolute Neutrophils 15.97 k/cumm (1.2-6.7) H 05/25/19 07:01 Absolute Lymphocytes 1.52 k/cumm (1.2-3.4) 05/25/19 07:01 Absolute Monocytes 1.16 k/cumm (0.11-0.7) H 05/25/19 07:01 Absolute Eosinophils 0.00 k/cumm (0.0-0.7) 05/25/19 07:01 Absolute Basophils 0.02 k/cumm (0.0-0.2) 05/25/19 07:01 Differential Comment Agrees w/ instrument 05/22/19 06:37 RBC Morphology See below 05/22/19 06:37 Polychromasia Present 05/22/19 06:37 Hypochromasia 1+ 05/22/19 06:37 Poikilocytosis 1+ 05/22/19 06:37 Anisocytosis 1+ 05/22/19 06:37 Microcytosis 2+ 05/22/19 06:37 PT 9.9 sec (9.3-11.0) 05/20/19 19:50 INR 1.0 (0.9-1.1) 05/20/19 19:50 APTT 28.1 sec (21.0-31.4) 05/20/19 19:50 Sodium 139 mmol/L (136-145) 05/25/19 07:01 Potassium 4.6 mmol/L (3.5-5.1) 05/25/19 07:01 Chloride 98 mmol/L (98-107) 05/25/19 07:01 Carbon Dioxide 30.4 mmol/L (21.0-32.0) 05/25/19 07:01 Anion Gap 10.6 mmol/L (3-11) 05/25/19 07:01 BUN 81 mg/dL (7-18) H* 05/25/19 07:01 Creatinine 1.93 mg/dL (0.55-1.02) H 05/25/19 07:01 Estimated GFR/1.73 m2 25.17 (mL/min/1.73m2) 05/25/19 07:01 Glucose 226 mg/dL (70-100) H 05/25/19 07:01 Calcium 9.6 mg/dL (8.5-10.1) 05/25/19 07:01 Magnesium 2.2 mg/dL (1.8-2.4) 05/25/19 07:01 Total Bilirubin 0.3 mg/dL (0.2-1.0) 05/20/19 19:50 AST 15 U/L (15-37) 05/20/19 19:50 ALT 20 U/L (14-59) 05/20/19 19:50 Alkaline Phosphatase 120 U/L (46-116) H 05/20/19 19:50 Troponin I 0.09 ng/mL (0.00-0.06) H* 05/25/19 11:55 NT-Pro-B Natriuret Pep 382 pg/mL (-299) H 05/20/19 19:50 Total Protein 8.6 g/dL (6.4-8.2) H 05/20/19 19:50 Albumin 3.6 g/dL (3.4-5.0) 05/20/19 19:50 TSH 0.03 uIU/mL (0.36-3.74) L 05/23/19 07:18 Urine Color Yellow (Yellow) 05/23/19 15:20 Urine Clarity Clear (Clear) 05/23/19 15:20 Urine pH 5.5 (5-8) 05/23/19 15:20 Ur Specific [place] <= 1.005 (1.005-1.025) 05/23/19 15:20 Urine Protein Negative mg/dL (Negative) 05/23/19 15:20 Urine Ketones Negative mg/dL (Negative) 05/23/19 15:20 Urine Blood Trace-intact (Negative) H 05/23/19 15:20 Urine Nitrite Negative (Negative) 05/23/19 15:20 Urine Bilirubin Negative (Negative) 05/23/19 15:20 Urine Urobilinogen 0.2 EU/dL (Up TO 0.2) 05/23/19 15:20 Ur Leukocyte Esterase Small (Negative) H 05/23/19 15:20 Urine RBC Negative (0-2) 05/23/19 15:20 Urine WBC 20-50 HPF (0-5) 05/23/19 15:20 Ur Epithelial Cells Moderate HPF (Negative) 05/23/19 15:20 Urine Crystals Negative HPF (Negative) 05/23/19 15:20 Urine Bacteria Few HPF (Negative) 05/23/19 15:20 Urine Casts Negative LPF (Negative) 05/23/19 15:20 Urine Mucus Negative (Negative) 05/23/19 15:20 Urine Other Few renal (Negative) 05/23/19 15:20 Ur Culture Indicated? No/sq. contamination 05/23/19 15:20 Urine Glucose 500 mg/dL (Negative) H 05/23/19 15:20
[2019-05-25] MEDS: Acetaminophen 325 MG TAB 650 MG PO (20:15)
[2019-05-25] MEDS: predniSONE 20 MG TAB PO (20:15)
[2019-05-25] MEDS: Normal Saline Flush 10 ML SYR IVP ×2 (20:15→22:44)
[2019-05-25] MEDS: cefTRIAXone 1 GM/50 ML BAG IVPB (20:32)
[2019-05-25] MEDS: Atorvastatin 40 MG TAB PO (21:33)
[2019-05-25] MEDS: Insulin Glargine 300 UNITS/3 ML PEN 60 UNITS SC (21:34)
[2019-05-25] MEDS: MORPHine 2 MG/ML SYR IVP (22:44)
[2019-05-25] MEDS: LORazepam 0.5 MG TAB PO (22:46)
[2019-05-26] VITALS (8 sets, daily range): BP systolic 116–173; BP diastolic 52–59; PULSE 61–81; RESP 1–20; TEMP 36–36.5; O2SAT 89–98
--- NOTE | 2019-05-26 03:28 | NUR.NOTE ---
Nursing Note: At approximately 2130, patient complained of 10/10 chest pain. Patient states it is very sharp and she has felt like this before. VSS. CCRN notified, Nitro given with slight relief. Chest pain continued, CCRN and MD notified, 2nd nitro given. Brief drop in blood pressure after second nitro with no relief. saw patient and ordered morphine, ativan and mylanta PRN.
[2019-05-26] MEDS: Albuterol/Ipratropium 3 ML UPD VIAL UPD ×2 (05:21→12:28)
[2019-05-26 07:48] LABS: Abs Immature Grans 0.27 k/cumm (0.0-0.09); Absolute Basophil Count 0.02 k/cumm (0.0-0.2); Absolute Monocyte Count 1.47 k/cumm (0.11-0.7); Basophils % 0.1; Eosinophils % 0.1; HCT 34.2 % (36.0-46.0); HGB 10.3 g/dL (12.0-15.5); Immature Grans % 1.4; Lymphocytes % 9.6; Mean Corp. HGB Concentration 30.1 g/dL (32.0-36.0); Mean Corpuscular Hemoglobin 24.4 pg (27.0-33.0); Mean Platelet Volume 11.1 fL (8.0-11.0); Monocytes % 7.4; Neutrophils % 81.4; Platelet Count 363 x1000/uL (130-400); RBC 4.22 m/cumm (4.00-5.20); RBC Distribution Width 16.6 % (11.7-14.6); White Blood Cell Count 19.83 k/cumm (4.4-10.8)
[2019-05-26 07:50] LABS: Absolute Eosinophil Count 0.02 k/cumm (0.0-0.7); Absolute Neutrophil Count 16.14 k/cumm (1.2-6.7)
[2019-05-26 08:15] LABS: Anion Gap 9.4 mmol/L (3-11); CO2 32.6 mmol/L (21.0-32.0); CREATININE 2.01 mg/dL (0.55-1.02); Chloride 97 mmol/L (98-107); Estimated GFR 24.02 (mL/min/1.73m2); Glucose 147 mg/dL (70-100); Magnesium 2.4 mg/dL (1.8-2.4); Potassium 4.6 mmol/L (3.5-5.1); Sodium 139 mmol/L (136-145)
[2019-05-26 08:17] LABS: BUN 92 mg/dL (7-18)
--- NOTE | 2019-05-26 08:46 | DI.RAD_ITS ---
EXAM: XR CHEST 2V PA LATERAL INDICATION: worsening leucocytosis, ?pneumonia. COMPARISON: XR CHEST 2V PA LATERAL from 05/22/2019 TECHNIQUE: 2D digital imaging was performed. FINDINGS: Comparison is made with the previous study of 05/22. The lungs remain well expanded and free of infilt rate. There is no pleural effusion. The heart is top limits of normal in size, unchanged. The hilar structures, mediastinum and tracheal air column are intact. IMPRESSION: No interval change, no evidence of acute cardiopulmonary disease.
[2019-05-26] MEDS: Isosorbide Dinitrate 10 MG TAB 30 MG PO (09:20)
[2019-05-26] MEDS: busPIRone 15 MG TAB 7.5 MG PO (09:20)
[2019-05-26] MEDS: Pantoprazole 40 MG TABCR PO (09:21)
[2019-05-26] MEDS: Cholecalciferol (Vitamin D3) 1,000 UNIT TAB 1000 UNITS PO (09:21)
[2019-05-26] MEDS: amLODIPine 2.5 MG TAB PO (09:21)
[2019-05-26] MEDS: hydrALAZINE 25 MG TAB PO ×2 (09:21→13:18)
[2019-05-26] MEDS: Gabapentin 300 MG CAP 900 MG PO ×2 (09:21→13:18)
[2019-05-26] MEDS: Clopidogrel 75 MG TAB PO (09:21)
[2019-05-26] MEDS: Ferrous Sulfate 325 MG TAB PO (09:21)
[2019-05-26] MEDS: Furosemide 40 MG TAB PO ×2 (09:21→15:33)
[2019-05-26] MEDS: Metoprolol CR 25 MG TABCR PO (09:21)
[2019-05-26] MEDS: Apixaban 2.5 MG TAB PO (09:21)
[2019-05-26] MEDS: predniSONE 20 MG TAB PO (09:21)
[2019-05-26] MEDS: PARoxetine 20 MG TAB PO (09:21)
[2019-05-26] MEDS: Insulin Glargine 300 UNITS/3 ML PEN 70 UNITS SC (09:22)
[2019-05-26] MEDS: Insulin Aspart 300 UNITS/3 ML PEN SC ×2 (09:22→12:02)
[2019-05-26] MEDS: Insulin Aspart 300 UNITS/3 ML PEN 15 UNITS SC ×2 (09:44→12:03)
--- NOTE | 2019-05-26 12:11 | DSE_ITS ---
Date of service: 05/26/19 Time of Service: 12:11 DS: Diagnosis Discharge Diagnosis (1) Acute exacerbation of chronic obstructive pulmonary disease (COPD): Status: Acute Asessment and Plan: Recurrent (2) Acute on chronic diastolic (congestive) heart failure: Status: Acute (3) Acute kidney injury superimposed on chronic kidney disease: Status: Acute (4) CAD (coronary artery disease): Status: Chronic (5) Hypothyroidism: Status: Chronic (6) Diabetes mellitus: Status: Chronic (7) Atypical chest pain: Status: Acute Discharge Plan Disposition Patient Disposition: HOME Condition: Stable Discharge Details Chief Complaint: SOB Clinical Impression: SOB (shortness of breath), CHF (congestive heart failure), COPD (chronic obstructive pulmonary disease), HTN (hypertension) Reason For Visit: SOB, COPD Admit Date/Time: 05/22/19 08:33 Admit Provider: Fredo Weiss Attending Provider: Fredo Weiss Primary Care Provider: Camilla Mcdonald ED Provider: Aisha Bleu [facility] Course Hospital Course: Ms Bean is a 79 year old female with h/o Non-oxygen dependent COPD, CAD s/p 8 stents, CKD s/p AV fistula, never on hemodialysis, baseline creatinine/GFR unknown (appears to have been close to 1 in April of 2019), IDDM2, who was admitted to [facility] on 05/20/19 with multifactorial shortness of breath, thought to be due to both acute exacerbation of COPD and chronic diastolic CHF. The patient was diuresed with IV lasix drip, initiated on empiric ceftriaxone, steroids, nebs. While her breathing steadily improved with above measures, the patient's creatinine did increase to 2.01 on the day of discharge. We do not truly know where this lies in comparison to her real creatinine because we haven't been able to get those medical records - the patient's care has been split between several hospitals in [place], recently in [place]. She will need outpatient follow up of her kidney function now that she has been transitioned to PO lasix. We do not think that she requires further antibiotics on the day of discharge. She will need to complete a short prednisone taper. Her ambulatory pulse ox on room air was 89%; therefore, she does not require oxygen. The patient was found to have iatrogenic hyperthyroidism with TSH of 0.03. Of this, she was symptomatic with tremors. Synthroid is held on her discharge until her follow up with PCP who could resume it at a lower dose. During her hospitalization, the patient had recurrent chest pains. She ruled out for ACS, but we cannot rule out stable angina, given the patient's extensive cardiac history. The patient cannot tell me where she gets her cardiac care. A referral to nephrology and cardiology at [facility] is being placed in case the patient has not been plugged in with these services. The patient will need close follow up of her kidney function and PCP follow up within the next week. The patient is medically stable for discharge at this time. Care for the patient and preparation of her discharge summary on the day of discharge took 45 minutes. Home Meds and New Rx's Prescriptions: New furosemide 40 mg Tablet 40 mg PO BID@0830,1600 Qty: 10 RF: 0 prednisone 20 mg Tablet See Rx Instructions .ROUTE .COMPLEX Qty: 6 RF: 0 Lantus Solostar U-100 Insulin 100 unit/mL (3 mL) Insulin Pen 70 units subcut DAILY@0800 Qty: 0 RF: 0 Continued atorvastatin 40 mg Tablet 40 mg PO HS RF: 0 amlodipine [Norvasc] 2.5 mg Tablet 2.5 mg PO DAILY RF: 0 buspirone 7.5 mg Tablet 7.5 mg PO DAILY RF: 0 cholecalciferol (vitamin D3) 1,000 unit Capsule 1,000 unit PO DAILY RF: 0 apixaban 2.5 mg Tablet 2.5 mg PO BID RF: 0 hydralazine 25 mg Tablet 25 mg PO TID RF: 0 isosorbide dinitrate 30 mg Tablet 30 mg PO BID RF: 0 ferrous sulfate 325 mg (65 mg iron) Tablet 325 mg PO DAILY RF: 0 gabapentin 300 mg Capsule 900 mg PO TID RF: 0 metoprolol succinate 25 mg Tablet Extended Release 24 Hr 25 mg PO DAILY RF: 0 clopidogrel 75 mg Tablet 75 mg PO DAILY RF: 0 dicyclomine 20 mg Tablet 20 mg PO DAILY PRNRF: 0 insulin lispro [Humalog KwikPen Insulin] 100 unit/mL Insulin Pen 15 unit SUBCUT AC RF: 0 Changed Albuterol-Ipatropium 0.5 mg 3 ml inhalation 4-6XD PRN (Reason: shortness of breath/wheezing) Qty: 60 RF: 0 insulin glargine 100 unit/mL Solution 50 unit SUBCUT HS Qty: 0 RF: 0 Discontinued levothyroxine 112 mcg Tablet 112 mcg PO DAILY RF: 0 No Action nitroglycerin [Nitrostat] 0.4 mg Tablet, Sublingual 0.4 mg SUBLINGUAL Q5M PRNRF: 0 paroxetine HCl [Paxil] 20 mg Tablet 20 mg PO DAILY RF: 0 pantoprazole [Protonix] 40 mg Tablet,Delayed Release (Dr/Ec) 40 mg PO DAILY AM RF: 0 Discharge Instructions Instructions: Heart Failure (DC), COPD (Chronic Obstructive Pulmonary Disease) (DC) Additional Instructions: Return to the hospital with any fever, bleeding, chest pain, or shortness of breath. Finish your steroid taper as prescribed. Follow up blood work in 3 days. Follow up with your PCP in 3-5 days. Care Plan Goals: Daily weights at the Daycare program. Inform PCP if patient is gaining >3 lbs in 3 days. Referrals: CARDIOLOGY,[facility] [OTHER] - (CAD s/p multiple stents) NEPHROLOGY,[facility] [OTHER] - Camilla Mcdonald [Primary Care Provider] - Activity:: Activity as Tolerated Equipment/Supplies:: No Equipment Needed Diet:: carb consistent low sodium Discharge Orders Discharge Orders: Discharge Order (Routine); Ordered 05/26/19 Ordered By: Dominique Choi Other Ambulatory Orders: Complete Blood Count w/Diff (Routine) Timeframe: 3 Days Location: Determined by Patient Ordered By: Dominique Choi Comprehensive Metabolic Panel (Routine) Timeframe: 3 Days Location: Determined by Patient Ordered By: Dominique Choi DS: Summary Status at Discharge Functional status at discharge: independent ambulation Overall status at discharge: patient is back to baseline Mental Status: mental status grossly normal Speech and Movement: speech and movement normal Mood: congruent mood Affect: normal affect Exam Narrative Exam Narrative: General: Very pleasant elderly female, sitting up in a chair on room air, no respiratory distress noted HEENT: EOMI, dry MM Heart: RRR, no m/r/g Lungs: crackles at B bases - I do not hear improvement GI: abdomen is soft, nontender, nondistended Extremities: trace edema BLE's, no c/c; dry skin; L wrist with AV fistula, palpable bruit/thrill Psych Mental Status: mental status grossly normal Speech and Movement: speech and movement normal Mood: congruent mood Affect: normal affect DS: Data Vitals/I&O Vitals and I&O: Vital Signs Temperature 36.5 C 05/26/19 11:20 Temperature Source Tympanic 05/26/19 11:20 Pulse 61 05/26/19 11:20 Pulse Rhythm Regular 05/26/19 10:47 Pulse 76 05/22/19 08:10 Respiratory Rate 16 05/26/19 11:20 Respiratory Effort Non-Labored 05/26/19 10:47 Respiratory Depth Normal 05/26/19 10:47 Respiratory Pattern Normal 05/26/19 10:47 Blood Pressure 133/59 L 05/26/19 11:20 Blood Pressure Mean 69 05/22/19 13:48 Pulse Oximetry 90 L 05/26/19 11:20 Oxygen Delivery Method Room Air 05/26/19 11:20 Oxygen Flow Rate 0 05/26/19 11:20 Pain Level 0 05/26/19 11:20 Comment 05/21/19 18:00 Intake & Output 05/25/19 05/26/19 05/26/19 23:59 11:59 23:59 Intake Total 510 / 980 1140 / 1190 50 / 1190 Output Total 2650 / 4700 1300 / 1300 Balance -2140 / -3720 -160 / -110 50 / -110 Weight 76 kg Intake: IV 50 / 50 Oral 490 / 960 1140 / 1140 Output: Urine 2650 / 4700 1300 / 1300 Other: Urine Color Pale Yellow Yellow Urine Appearance Clear Cloudy Urine Odor Normal Voiding Methods Toilet Data Completed and Pending Completed studies during hospitalization [Text1]: CXR 05/26/19: No interval change, no evidence of acute cardiopulmonary disease. CXR 05/22/19: Mild cardiomegaly, no evidence of acute CHF. Echo 05/22/19: 1. Left ventricle: The cavity size was normal. Wall thickness was increased in a pattern of mild LVH. Systolic function was normal. The estimated ejection fraction was 60-65%. Wall motion was normal; there were no regional wall motion abnormalities. Doppler parameters are consistent with high ventricular filling pressure. 2. Right ventricle: The cavity size was normal. Systolic function was normal. 3. Left atrium: The atrium was mildly dilated. 4. Inferior vena cava: The vessel was patent and mildly dilated. The respirophasic diameter changes were in the normal range (greater than or equal to 50%), consistent with normal central venous pressure. CXR 05/20/19: No acute abnormality is seen. Labs on day of discharge: Labs from last 24 hours 05/26/19 05/26/19 05/25/19 06:30 06:30 11:55 WBC 19.83 H RBC 4.22 Hgb 10.3 L Hct 34.2 L MCV 81.0 MCH 24.4 L MCHC 30.1 L RDW 16.6 H Plt Count 363 MPV 11.1 H Immature Gran % 1.4 Neutrophils % 81.4 Lymphocytes % 9.6 Monocytes % 7.4 Eosinophils % 0.1 Basophils % 0.1 Absolute Neutrophils 16.14 H Absolute Lymphocytes 1.90 Absolute Monocytes 1.47 H Absolute Eosinophils 0.02 Absolute Basophils 0.02 Sodium 139 Potassium 4.6 Chloride 97 L Carbon Dioxide 32.6 H Anion Gap 9.4 BUN 92 H* Creatinine 2.01 H Estimated GFR/1.73 m2 24.02 Glucose 147 H D Calcium 9.0 Magnesium 2.4 Troponin I 0.09 H* [facility] Social History Smoking/Tobacco Use Status: Former Tobacco Use Substance use type: does not use Do you feel safe in your relationship?: Yes
--- NOTE | 2019-05-26 13:06 | CMDISCH_ITS ---
- If Service Date Differs Date of service: 05/26/19 Time of Service: 13:07 LACE Index Scoring Tool - Questions: Length of Stay (in days): 4 - 6 Acuity (Admit via E.D.?): Yes Comorbidities: Diabetes w/o Complication, Chronic Pulmonary Disease E.D. Visits: 1 - Answers: Total Score: 11 Risk of Readmission: High Risk Care Management Discharge Reason for Hospitalization: SOB, COPD Discharge Plan: Karina will return home now that she is medically stable, per MD. She lives with her daughter, Fina, who will be transporting her home via private vehicle. Karina will resume her visits to [facility] 5x/week with daily weight checks. Follow up with PCP. Referrals were [place] to nephrology and [place]ology [place] [facility] per MD. No additional services at this time. Patient/Family Education Needs: Review of discharge instructions, discussion of self care needs including Ask Me Three Services Needed at Discharge: Day Care
[2019-06-02] MEDS: Normal Saline Flush 10 ML SYR IVP (10:40)
== END 2019-05-26 17:00 | disposition home or self-care (01) | DRG 190 ==
LOC: ER 22:21 → MS 22:37 → ICU 05-21 18:32 → MS 05-22 14:10
PROVIDERS: Internal Medicine; Admitting Provider General Practice; Emergency Provider Physician Assistant; PCP Nurse Practitioner Family; Visit Provider Internal Medicine
DX: J44.1 Chronic obstructive pulmonary disease with (acute) exacerbation (principal); I50.33 Acute on chronic diastolic (congestive) heart failure; N17.9 Acute kidney failure, unspecified; E11.22 Type 2 diabetes mellitus with diabetic chronic kidney disease; N18.9 Chronic kidney disease, unspecified; E87.70 Fluid overload, unspecified; R07.89 Other chest pain; E87.5 Hyperkalemia; I25.10 Atherosclerotic heart disease of native coronary artery without angina pectoris; Z95.5 Presence of coronary angioplasty implant and graft; E05.80 Other thyrotoxicosis without thyrotoxic crisis or storm; G25.1 Drug-induced tremor; T38.1X5A Adverse effect of thyroid hormones and substitutes, initial encounter
CPT/HCPCS: 36415; 80048; 80053; 82947; 93005; 93306; 94618; 96374; 99222; 99232; 99233; 99239; 99285; 99356; 71046; 81003; 81015; 83735; 83880; 84132; 84443; 84484; 85025; 85610; 85730; 93010; 94640; 99218; 99225; G0378; J0696; J1815; J1940; J2270; J7512; J7613; J7620

== ENCOUNTER 2019-06-03 19:07 | Outpatient (REF) | payer MEDICARE, MEDICAID, SELFPAY ==
[2019-06-03 19:22] LABS: COMMENT (LAB VIEW ONLY) 33.22 mg/dL; Microalb ug/mg Crea 150.2 ug/mg Cr
== END 2019-06-03 19:27 ==
LOC: NCHCN 19:07
PROVIDERS: PCP Nurse Practitioner Family; Visit Provider Nurse Practitioner Family
DX: E11.9 Type 2 diabetes mellitus without complications (principal)
CPT/HCPCS: 82043; 82570

== ENCOUNTER 2019-06-06 16:08 | Outpatient (CLI) | payer MEDICARE, MEDICAID, SELFPAY ==
[2019-06-06 16:44] LABS: Abs Immature Grans 0.03 k/cumm (0.0-0.09); Absolute Basophil Count 0.07 k/cumm (0.0-0.2); Absolute Eosinophil Count 0.37 k/cumm (0.0-0.7); Absolute Lymphocyte Count 2.01 k/cumm (1.2-3.4); Absolute Monocyte Count 0.62 k/cumm (0.11-0.7); Absolute Neutrophil Count 6.38 k/cumm (1.2-6.7); Basophils % 0.7; Eosinophils % 3.9; HCT 34.1 % (36.0-46.0); HGB 10.1 g/dL (12.0-15.5); Immature Grans % 0.3; Lymphocytes % 21.2; Mean Corp. HGB Concentration 29.6 g/dL (32.0-36.0); Mean Corpuscular Hemoglobin 24.7 pg (27.0-33.0); Mean Corpuscular Volume 83.4 fL (80-95); Mean Platelet Volume 10.3 fL (8.0-11.0); Monocytes % 6.5; Neutrophils % 67.4; Platelet Count 285 x1000/uL (130-400); RBC 4.09 m/cumm (4.00-5.20); RBC Distribution Width 16.3 % (11.7-14.6); White Blood Cell Count 9.48 k/cumm (4.4-10.8)
[2019-06-06 18:55] LABS: ALT 18 U/L (14-59); AST 13 U/L (15-37); Albumin 2.8 g/dL (3.4-5.0); Alkaline Phosphatase 83 U/L (46-116); Anion Gap 7.9 mmol/L (3-11); BUN 47 mg/dL (7-18); Bilirubin, Total 0.3 mg/dL (0.2-1.0); CO2 36.1 mmol/L (21.0-32.0); Calcium 8.6 mg/dL (8.5-10.1); Chloride 101 mmol/L (98-107); Estimated GFR 25.63 (mL/min/1.73m2); Glucose 102 mg/dL (70-100); Potassium 3.9 mmol/L (3.5-5.1); Sodium 145 mmol/L (136-145); Total Protein 6.8 g/dL (6.4-8.2)
[2019-06-06 19:21] LABS: TSH (W/Ref FT4) 1.93 uIU/mL (0.36-3.74)
== END 2019-06-06 16:28 ==
PROVIDERS: PCP Nurse Practitioner Family; Visit Provider Internal Medicine
DX: I50.33 Acute on chronic diastolic (congestive) heart failure (principal); N17.9 Acute kidney failure, unspecified; N18.3 Chronic kidney disease, stage 3 (moderate); D72.829 Elevated white blood cell count, unspecified; E05.80 Other thyrotoxicosis without thyrotoxic crisis or storm
CPT/HCPCS: 36415; 80053; 84443; 85025

== ENCOUNTER 2019-06-09 07:28 | Inpatient (IN) | payer MEDICARE, MEDICAID, SELFPAY ==
[2019-06-09] VITALS (88 sets, daily range): BP systolic 100–151; BP diastolic 33–100; PULSE 55–71; RESP 2–27; TEMP 36.1–36.6; O2SAT 90–100
--- NOTE | 2019-06-09 07:55 | DI.RAD_ITS ---
EXAM: XR PORTABLE CHEST AP INDICATION: SOB. COMPARISON: XR CHEST 2V PA LATERAL from 05/26/2019 XR SOFT TISSUE NECK from 06/09/2019 TECHNIQUE: 2D digital imaging was performed. FINDINGS: The lungs are well expanded and free of infiltrate. There is no evidence of a pleural effusion or pn eumothorax. The heart is not enlarged. IMPRESSION: No evidence of acute cardiopulmonary disease.
[2019-06-09 07:58] LABS: Abs Immature Grans 0.01 k/cumm (0.0-0.09); Absolute Basophil Count 0.03 k/cumm (0.0-0.2); Absolute Eosinophil Count 0.31 k/cumm (0.0-0.7); Absolute Lymphocyte Count 1.67 k/cumm (1.2-3.4); Absolute Monocyte Count 0.45 k/cumm (0.11-0.7); Absolute Neutrophil Count 5.59 k/cumm (1.2-6.7); Basophils % 0.4; Eosinophils % 3.8; HCT 33.8 % (36.0-46.0); HGB 9.6 g/dL (12.0-15.5); Immature Grans % 0.1; Lymphocytes % 20.7; Mean Corp. HGB Concentration 28.4 g/dL (32.0-36.0); Mean Corpuscular Hemoglobin 24.3 pg (27.0-33.0); Mean Corpuscular Volume 85.6 fL (80-95); Monocytes % 5.6; Neutrophils % 69.4; Platelet Count 270 x1000/uL (130-400); RBC 3.95 m/cumm (4.00-5.20); RBC Distribution Width 16.3 % (11.7-14.6); White Blood Cell Count 8.06 k/cumm (4.4-10.8)
--- NOTE | 2019-06-09 07:59 | DI.CT_ITS ---
EXAM: CT NECK WO CLINICAL HISTORY: loss of voice, SOB. TECHNIQUE: COMPARISON: No exams were available for comparison FINDINGS: CT examination the cervical region was performed without contrast administration. Images obtained th rough the lung apices show an apparent area of consolidation in the right upper pulmonary lobe on the lowest images obtained. Tracheal and laryngeal structures appear intact as visualized. Unremarkabl e appearance of the epiglottis. There appears to be some soft tissue swelling of the pharynx, no oksana ss mass or peritonsillar abscess identified. No significant cervical adenopathy. Visualized paranas al sinuses appear clear. Visualized portions of brain are unremarkable. The salivary glands are unremarkable. IMPRESSION: Conclusion 1 some Pharyngeal edema appears to be present without gross airway obstruction. Two findings suggesting small area of consolidation in portion of the right upper pulmonary lobe on t he most inferior images obtained.
--- NOTE | 2019-06-09 08:00 | ED.GENADUL_ITS ---
Discharge Plan Disposition Condition: Stable Discharge Details Admit Date/Time: 06/09/19 12:37 Admit Provider: Dominique Choi Attending Provider: Dominique Choi Primary Care Provider: Camilla Mcdonald ED Provider: Lalitha Whitt Discharge Instructions Activity:: Activity as Tolerated Equipment/Supplies:: No Equipment Needed Diet:: heart healthy diabetic Discharge Orders Discharge Orders: Discharge Order (Routine); Ordered 06/10/19 Ordered By: Dominique Choi Discharge Data Discharge Date/Time-TO BE ENTERED AT DEPARTURE: 06/09/19 14:00 Medical Decision Making Karina Bean is a 79-year-old woman with a history of coronary artery disease on apixaban and Plavix, diabetes, hypothyroidism, chronic kidney disease, CHF, COPD who presented to the emergency department with shortness of breath and loss of voice that began upon waking this morning, also with sore throat. On exam patient chronically ill but acutely nontoxic appearing, mild erythema and edema of the posterior pharynx without other oral edema, handling secretions without issue. Lungs clear to auscultation bilaterally with slightly prolonged expiratory phase. No posterior calf tenderness, no edema of the lower extremities. Concern for possible upper airway pathology contributing to shortness of breath given apparent loss of voice, COPD exacerbation, less likely CHF/PNA, doubt PE, doubt ACS. Exam/history is not consistent with sepsis, acute aortic etiology. Plan for soft tissue neck x-ray, chest x-ray, DuoNeb, screening labs, screening EKG, IV placement, telemetry. Will monitor and reassess. Soft tissue neck without apparent obstruction on my bedside read. Plan for CT neck without contrast secondary to GFR in 20s upon record review. Patient reporting mild improvement in symptoms prior to CT. CT shows mild vocal cord thickening consistent with laryngitis per radiology over the phone, no other acute process. Patient reports feeling significant Gurpreet better. Intermittently she speaks in a normal voice. She reports that shortness of breath is much improved but not entirely resolved. Plan for second DuoNeb. On reassessment patient reports feeling much better. She states that she feels at baseline. Patient use the commode and became significantly dyspneic moving from the bed to the commode and back. She is visibly short of breath after using the commode and tachypneic, with symptoms improving upon rest. D-dimer somewhat elevated when corrected for age. Patient cannot have CT PE study secondary to chronic kidney disease, plan for VQ scan for rule out pulmonary embolism. Unclear etiology of dyspnea on exertion at this point. VQ scan not able to be obtained today. Given unclear etiology of dyspnea, plan for admission for VQ scan and further evaluation. Given the patient currently taking apixaban, will hold empiric anticoagulation at this time. Clinical Impression: dyspnea Disposition: [facility] inpatient Medical Records Medical records reviewed: Yes I reviewed the patient's medical records. Imaging Data Radiologic Study: Attestation: I personally reviewed and interpreted this imaging study as follows: Radiologist's impression: see above Lab Data Lab results reviewed: Yes I reviewed the patient's lab results. Labs: Laboratory Tests Range/Units 06/09/19 06/09/19 06/09/19 07:50 07:50 07:50 WBC (4.4-10.8) k/cumm 8.06 RBC (4.00-5.20) m/cumm 3.95 L Hgb (12.0-15.5) g/dL 9.6 L Hct (36.0-46.0) % 33.8 L MCV (80-95) fL 85.6 MCH (27.0-33.0) pg 24.3 L MCHC (32.0-36.0) g/dL 28.4 L RDW (11.7-14.6) % 16.3 H Plt Count (130-400) x1000/uL 270 MPV (8.0-11.0) fL 10.0 Immature Gran % 0.1 Neutrophils % 69.4 Lymphocytes % 20.7 Monocytes % 5.6 Eosinophils % 3.8 Basophils % 0.4 Absolute Neutrophils (1.2-6.7) k/cumm 5.59 Absolute Lymphocytes (1.2-3.4) k/cumm 1.67 Absolute Monocytes (0.11-0.7) k/cumm 0.45 Absolute Eosinophils (0.0-0.7) k/cumm 0.31 Absolute Basophils (0.0-0.2) k/cumm 0.03 Differential Comment Rbc morph reviewed RBC Morphology See below Polychromasia Present Hypochromasia 2+ Anisocytosis 1+ D-Dimer (<500) ng/mlFEU 874 H Sodium (136-145) mmol/L 142 Potassium (3.5-5.1) mmol/L 4.4 Chloride (98-107) mmol/L 102 Carbon Dioxide (21.0-32.0) mmol/L 33.4 H Anion Gap (3-11) mmol/L 6.6 BUN (7-18) mg/dL 36 H D Creatinine (0.55-1.02) mg/dL 1.85 H Estimated GFR/1.73 m2 (mL/min/1.73m2) 26.43 Glucose (70-100) mg/dL 282 H D Calcium (8.5-10.1) mg/dL 8.8 Magnesium (1.8-2.4) mg/dL 1.7 L Total Bilirubin (0.2-1.0) mg/dL 0.2 AST (15-37) U/L 12 L ALT (14-59) U/L 16 Alkaline Phosphatase (46-116) U/L 84 Troponin I (0.00-0.06) ng/mL < 0.05 NT-Pro-B Natriuret Pep ( - 299) pg/mL 217 Total Protein (6.4-8.2) g/dL 7.5 Albumin (3.4-5.0) g/dL 2.8 L Range/Units 06/09/19 10:42 WBC (4.4-10.8) k/cumm RBC (4.00-5.20) m/cumm Hgb (12.0-15.5) g/dL Hct (36.0-46.0) % MCV (80-95) fL MCH (27.0-33.0) pg MCHC (32.0-36.0) g/dL RDW (11.7-14.6) % Plt Count (130-400) x1000/uL MPV (8.0-11.0) fL Immature Gran % Neutrophils % Lymphocytes % Monocytes % Eosinophils % Basophils % Absolute Neutrophils (1.2-6.7) k/cumm Absolute Lymphocytes (1.2-3.4) k/cumm Absolute Monocytes (0.11-0.7) k/cumm Absolute Eosinophils (0.0-0.7) k/cumm Absolute Basophils (0.0-0.2) k/cumm Differential Comment RBC Morphology Polychromasia Hypochromasia Anisocytosis D-Dimer (<500) ng/mlFEU Sodium (136-145) mmol/L Potassium (3.5-5.1) mmol/L Chloride (98-107) mmol/L Carbon Dioxide (21.0-32.0) mmol/L Anion Gap (3-11) mmol/L BUN (7-18) mg/dL Creatinine (0.55-1.02) mg/dL Estimated GFR/1.73 m2 (mL/min/1.73m2) Glucose (70-100) mg/dL Calcium (8.5-10.1) mg/dL Magnesium (1.8-2.4) mg/dL Total Bilirubin (0.2-1.0) mg/dL AST (15-37) U/L ALT (14-59) U/L Alkaline Phosphatase (46-116) U/L Troponin I (0.00-0.06) ng/mL < 0.05 NT-Pro-B Natriuret Pep ( - 299) pg/mL Total Protein (6.4-8.2) g/dL Albumin (3.4-5.0) g/dL ECG Data Attestation: I personally reviewed and interpreted this ECG (s) as follows: Interpretation: EKG shows sinus rhythm at 69, left anterior fascicular block, incomplete right bundle branch block present on prior, no acute ischemic changes, nondiagnostic EKG HPI General Mode of arrival: ambulatory . Date/Time Provider Initiated Documentation: 06/09/19 07:37 . Limitations to Documentation: no limitations . Information obtained by: patient, family, RN notes reviewed and old records reviewed . HPI Narrative: Karina Bean is a 79 y/o woman with history of coronary artery disease on Plavix and apixaban, chronic kidney disease, COPD, diabetes, hypothyroidism presenting to the emergency department with shortness of breath and loss of voice. Patient is accompanied by her daughter who also provides a history. Patient's daughter reports that patient woke up this mo rning and had lost her voice. Patient was complaining to her daughter that she also felt short of breath. Patient has frequent bouts of similar shortness of breath per her and her daughter, however shortness of breath than usual. Patient and her daughter report that she felt in her usual state of health yesterday without recent illness. Patient reports mild sore throat, no other pain, no vomiting, no diarrhea, no fever, no numbness, no weakness, no cough, no rash. Did not receive COPD treatment at home this morning. No recent travel. Related Data Home Medications Medication Instructions Recorded Confirmed amlodipine [Norvasc] 2.5 mg PO DAILY 05/20/19 06/11/19 apixaban 2.5 mg PO BID 05/20/19 06/11/19 atorvastatin 40 mg PO HS 05/20/19 06/11/19 buspirone 7.5 mg PO DAILY 05/20/19 06/11/19 cholecalciferol (vitamin D3) 1,000 unit PO DAILY 05/20/19 06/11/19 clopidogrel 75 mg PO DAILY 05/20/19 06/11/19 dicyclomine 20 mg PO DAILY PRN 05/20/19 06/11/19 ferrous sulfate 325 mg PO DAILY 05/20/19 06/11/19 gabapentin 900 mg PO TID 05/20/19 06/11/19 hydralazine 25 mg PO TID 05/20/19 06/11/19 insulin lispro [Humalog KwikPen 15 unit SUBCUT AC 05/20/19 06/11/19 Insulin] isosorbide dinitrate 30 mg PO BID 05/20/19 06/11/19 metoprolol succinate 25 mg PO DAILY 05/20/19 06/11/19 nitroglycerin [Nitrostat] 0.4 mg SUBLINGUAL Q5M PRN 05/20/19 06/11/19 pantoprazole [Protonix] 40 mg PO DAILY AM 05/20/19 06/11/19 paroxetine HCl [Paxil] 20 mg PO DAILY 05/20/19 06/11/19 Albuterol-Ipatropium 3 ml INHALATION 4-6XD PRN #60 each 05/26/19 06/11/19 Lantus Solostar U-100 Insulin 70 units SUBCUT DAILY@0800 #0 ml 05/26/19 06/11/19 furosemide 40 mg PO BID@0830,1600 #10 tab 05/26/19 06/11/19 insulin glargine 50 unit SUBCUT HS #0 ml 05/26/19 06/11/19 amoxicillin-pot clavulanate 1 tab PO BID #10 tab 06/10/19 06/11/19 [Augmentin] Previous Rx's Medication Instructions Recorded Albuterol-Ipatropium 3 ml INHALATION 4-6XD PRN #60 each 05/26/19 Lantus Solostar U-100 Insulin 70 units SUBCUT DAILY@0800 #0 ml 05/26/19 furosemide 40 mg PO BID@0830,1600 #10 tab 05/26/19 insulin glargine 50 unit SUBCUT HS #0 ml 05/26/19 amoxicillin-pot clavulanate 1 tab PO BID #10 tab 06/10/19 [Augmentin] Allergies Allergy/AdvReac Type Severity Reaction Status Date / Time Morphine AdvReac Severe Agitation Uncoded 06/11/19 20:22 General Stated Complaint: SOB JOSH: 2 Review of Systems Review of Systems Narrative: Constitutional: denies fevers Eyes: denies eye pain ENT: denies facial pain, dental pain, reports sore throat, loss of voice Cardiovascular: denies chest pain, edema Respiratory: denies cough, reports shortness of breath GI: denies abdominal pain, vomiting, diarrhea : denies flank pain MSK: denies back pain, neck pain, arthralgias, myalgias Skin: denies rash Neuro: denies headaches, numbness, weakness PFSH Medical History (Updated 06/10/19 @ 16:08 by Dominique Choi MD) CAD (coronary artery disease) (Chronic) Chronic diastolic CHF (congestive heart failure) (Chronic) CKD (chronic kidney disease) (Acute) COPD (chronic obstructive pulmonary disease) (Chronic) COPD with acute exacerbation (Inactive) Diabetes mellitus (Chronic) Hypothyroidism (Chronic) Obesity (BMI 30.0-34.9) (Chronic) Surgical History (Updated 05/26/19 @ 12:17 by Dominique Choi MD) H/O cardiac catheterization (Chronic) [address] S/P arteriovenous (AV) fistula creation (Acute) [facility] [place] Social History Smoking/Tobacco Use Status: Former Tobacco Use Substance use type: does not use Do you feel safe in your relationship?: Yes Exam Narrative Exam Narrative: Constitutional: Chronically ill but acutely [id number], appears comfortable, mouthing words HENT: head atraumatic/normocephalic/normal inspection, mucous membranes moist, mild posterior pharyngeal erythema and mild edema. No edema of the tongue or lips. No intraoral lesion. Handling secretions without issue. Patient is mouthing words/whispering, however brief apparent normal localization during IV placement Eyes: conjunctiva normal, sclera normal, pupils 3mm b/l Neck: no stridor, normal painless ROM, trachea midline Chest: normal inspection Resp: normal work of breathing, LCTAB, mild prolonged expiratory phase Cardio: normal rate, normal rhythm, no murmur appreciated Back: normal inspection, no rash Skin: warm, dry, normal color, no rash Neuro: alert, not altered, grossly non-focal, normal tone Ext: no edema, no posterior calf tenderness to palpation, fistula noted left forearm with palpable thrill, no tenderness or overlying skin changes Psych: normal mood, normal affect, normal behavior Course Vital Signs Vital signs: Vital Signs Temperature 36.6 C 06/09/19 07:33 Pulse 71 06/09/19 07:33 Respiratory Rate 16 06/09/19 07:33 Blood Pressure 139/48 L 06/09/19 07:33 Pulse Oximetry 95 06/09/19 07:33 Temperature 36.6 C 06/09/19 07:33 Pulse 71 06/09/19 07:33 Respiratory Rate 16 06/09/19 07:33 Blood Pressure 139/48 L 06/09/19 07:33 Blood Pressure Position Supine 06/09/19 07:33 Pulse Oximetry 95 06/09/19 07:33 Oxygen Delivery Method Room Air 06/09/19 07:33 Oxygen Flow Rate 0 06/09/19 07:33
--- NOTE | 2019-06-09 08:05 | DI.RAD_ITS ---
EXAM: XR SOFT TISSUE NECK INDICATION: SOB, loss of voice. COMPARISON: No exams were available for comparison TECHNIQUE: 2D digital imaging was performed. FINDINGS: AP and lateral images reveal surgical clips in the lateral aspect of the neck. The oropharynx appear s grossly intact. The larynx is poorly demonstrated. The patient is edentulous. A CT examination of the neck was performed please see the separate report.
[2019-06-09 08:34] LABS: Anisocytosis 1+; Diff Comment RBC Morph Reviewed; Hypochromasia 2+
[2019-06-09 08:35] LABS: Albumin 2.8 g/dL (3.4-5.0); Anion Gap 6.6 mmol/L (3-11); CO2 33.4 mmol/L (21.0-32.0); CREATININE 1.85 mg/dL (0.55-1.02); Calcium 8.8 mg/dL (8.5-10.1); Chloride 102 mmol/L (98-107); Estimated GFR 26.43 (mL/min/1.73m2); Polychromasia Present; Potassium 4.4 mmol/L (3.5-5.1); Sodium 142 mmol/L (136-145)
[2019-06-09 08:54] LABS: ALT 16 U/L (14-59); AST 12 U/L (15-37); Alkaline Phosphatase 84 U/L (46-116); BUN 36 mg/dL (7-18); Bilirubin, Total 0.2 mg/dL (0.2-1.0); Glucose 282 mg/dL (70-100); Magnesium 1.7 mg/dL (1.8-2.4); Total Protein 7.5 g/dL (6.4-8.2)
[2019-06-09 08:55] LABS: Troponin I < 0.05 ng/mL (0.00-0.06)
[2019-06-09 09:02] LABS: D-Dimer 874 ng/mlFEU (<500)
[2019-06-09 09:12] LABS: NT-proBNP 217 pg/mL
[2019-06-09 11:12] LABS: Troponin I < 0.05 ng/mL (0.00-0.06)
[2019-06-09] MEDS: Albuterol/Ipratropium 3 ML UPD VIAL UPD ×2 (11:29→23:34)
[2019-06-09 13:29] LABS: Procalcitonin < 0.1 ng/mL
[2019-06-09 14:07] LABS: Bilirubin Negative (Negative); Blood Negative (Negative); Clarity Sl Cloudy (Clear); Glucose Negative (Negative); Ketones Negative (Negative); Leukocyte Esterase Small (Negative); Nitrite Negative (Negative); Specific Gravity 1.015 (1.005-1.025); Urobilinogen 0.2 EU/dL (Up TO 0.2); pH 6.5 (5-8)
[2019-06-09 14:17] LABS: Bacteria Few HPF (Negative); C & S Indicated? No/Sq. Contamination; Casts Negative LPF (Negative); Crystals Negative HPF (Negative); Epithelial Cells Many HPF (Negative); Mucus Negative (Negative); Other Cells Mod Transitional (Negative); RBC 0-2 (0-2); WBC 20-50 HPF (0-5)
--- NOTE | 2019-06-09 17:41 | W.ED.FU ---
Dr. Wick called and said he feels there is a right upper lobe infiltrate on the neck CT done earlier. I spoke with the hospilist Dr. llanos who is going to order antibiotics for the patient as she is currently admitted
--- NOTE | 2019-06-09 18:42 | W.PM.HP.N ---
Date of service: 06/09/19 Time of Service: 18:42 Assessment and Plan Assessment and plan (1) HCAP (healthcare-associated pneumonia): Status: Acute Assessment and plan: I am very clinically underwhelmed by the patient's appearance at rest. Her procalcitonin is negative. However, the patient does have consolidation in RUL on CT of her neck and has had frequent hospitalizations. We started her on empiric zosyn. Will obtain blood cultures and sputum C&S. I think the patient should undergo VQ scan tomorrow as planned. (2) Laryngitis: Status: Acute Assessment and plan: Clinically this seems to be improving. Certainly, her airway appears safe. She is able to vocalize without any issues while talking to me. (3) CAD (coronary artery disease): Status: Chronic Assessment and plan: Stable. No change in outpatient tx. (4) CKD (chronic kidney disease): Status: Acute Assessment and plan: Probably at her true baseline - clinically, she is euvolemic if not a tiny bit dehydrated, but her lungs appear the best I have ever heard them today. I will not change dose of her lasix at this time. Recheck labs in am. (5) Diabetes mellitus: Status: Chronic Assessment and plan: Continue home regimen with SSI (6) COPD (chronic obstructive pulmonary disease): Status: Chronic Assessment and plan: Not in acute exacerbation. Continue home regimen. (7) Chronic diastolic CHF (congestive heart failure): Status: Chronic Assessment and plan: Not in acute exacerbation. Read above (8) Discharge planning issues: Status: Acute Assessment and plan: DNR/DNI. I anticipate discharge home within 48 hours (9) DVT prophylaxis: Status: Acute Assessment and plan: On therapeutic eliquis History of Present Illness History of Present Illness Chief Complaint: shortness of breath Narrative: Ms Bean is a 79 year old female with PMHx of CAD s/p multiple stents on anticoagulation with eliquis, chronic diastolic CHF, non-oxygen dependent COPD with frequent exacerbations, CKD s/p AVF in the past, but never on HD, who since this morning has been more short of breath than yesterday and reporting that she has lost her voice. Per daughter, the patient complained of a headache and sinus congestion yesterday. She felt better with nebulizer treatments in the ED and was about to be sent home when the patient showed her extreme dyspnea on exertion just with a couple of steps, unusual for her. She is compliant with her anticoagulation, but based on her presentation, it is felt that a pulmonary embolism needs to be ruled out. Unfortunately, the patient's kidney function does not permit getting a CTA of her chest, and no VQ scan will be available until tomorrow. On non-contrast CT of her neck, however, it appeared that she might have a RUL pneumonia. We were asked to admit the patient for further care. The patient states she already feels better. Denies any fevers, sore throat, wheezing, sputum production or cough, fevers at home. Her voice is back to normal. She did experience a little bit of dizziness when turning her head in bed, which lasted only a couple of seconds and was self limited and happens at home sometimes. Review of Systems Review of Systems Narrative: 12 systems reviewed. Pertinent positives and negatives are as per HPI. [facility] Medical History (Updated 06/09/19 @ 19:09 by Dominique Choi MD) CAD (coronary artery disease) (Chronic) Chronic diastolic CHF (congestive heart failure) (Chronic) CKD (chronic kidney disease) (Acute) COPD (chronic obstructive pulmonary disease) (Chronic) COPD with acute exacerbation (Inactive) Diabetes mellitus (Chronic) Hypothyroidism (Chronic) Obesity (BMI 30.0-34.9) (Chronic) Surgical History (Updated 05/26/19 @ 12:17 by Dominique Choi MD) H/O cardiac catheterization (Chronic) [address] S/P arteriovenous (AV) fistula creation (Acute) [facility] in [place] Social History Smoking/Tobacco Use Status: Former Tobacco Use Substance use type: does not use Do you feel safe in your relationship?: Yes Meds Home Medications and Allergies Home Medications Medication Instructions Recorded Confirmed Type amlodipine [Norvasc] 2.5 mg PO DAILY 05/20/19 05/20/19 History apixaban 2.5 mg PO BID 05/20/19 05/20/19 History atorvastatin 40 mg PO HS 05/20/19 05/20/19 History buspirone 7.5 mg PO DAILY 05/20/19 05/20/19 History cholecalciferol (vitamin D3) 1,000 unit PO DAILY 05/20/19 05/20/19 History clopidogrel 75 mg PO DAILY 05/20/19 05/20/19 History dicyclomine 20 mg PO DAILY PRN 05/20/19 05/20/19 History ferrous sulfate 325 mg PO DAILY 05/20/19 05/20/19 History gabapentin 900 mg PO TID 05/20/19 05/20/19 History hydralazine 25 mg PO TID 05/20/19 05/20/19 History insulin lispro [Humalog KwikPen 15 unit SUBCUT AC 05/20/19 05/20/19 History Insulin] isosorbide dinitrate 30 mg PO BID 05/20/19 05/20/19 History metoprolol succinate 25 mg PO DAILY 05/20/19 05/20/19 History nitroglycerin [Nitrostat] 0.4 mg SUBLINGUAL Q5M PRN 05/20/19 05/20/19 History pantoprazole [Protonix] 40 mg PO DAILY AM 05/20/19 05/20/19 History paroxetine HCl [Paxil] 20 mg PO DAILY 05/20/19 05/20/19 History Albuterol-Ipatropium 3 ml INHALATION 4-6XD PRN #60 each 05/26/19 05/20/19 Rx furosemide 40 mg PO BID@0830,1600 #10 tab 05/26/19 Rx insulin glargine 50 unit SUBCUT HS #0 ml 05/26/19 05/20/19 Rx insulin glargine [Lantus Solostar 70 units SUBCUT DAILY@0800 #0 ml 05/26/19 Rx U-100 Insulin] prednisone See Rx Instructions .ROUTE 05/26/19 Rx .COMPLEX #6 tab Allergies Allergy/AdvReac Type Severity Reaction Status Date / Time No Known Allergies Allergy Unverified 05/20/19 20:59 Exam Narrative Exam Narrative: General: very pleasant elderly female, forgetful, A&Ox3, laying comfortably flat in bed with no shortness of breath noted. Neuro: A&Ox3, no focal deficits Psych: appropriate speech pattern/content Skin: dry, intact HEENT: Atraumatic, normocephalic, EOMI, dry MM, clear oropharynx, no submandibular or cervical lymphadenopathy, no goiter or JVD Heart: RRR, + quiet PATRICE Lungs: Clear at B bases, no crackles, Possibly coarse breath sounds in bilateral upper lung whitaker. GI: abdomen is soft, nontender, nondistended Extremities; LUE AVF with good bruit/palpable thrill; no e/c/c BLE's Results Imaging Additional studies: CXR: No evidence of acute cardiopulmonary disease. CT neck w/o contrast: Conclusion 1 some Pharyngeal edema appears to be present without gross airway obstruction. Two findings suggesting small area of consolidation in portion of the right upper pulmonary lobe on the most inferior images obtained. XR soft tissue neck: AP and lateral images reveal surgical clips in the lateral aspect of the neck. The oropharynx appears grossly intact. The larynx is poorly demonstrated. The patient is edentulous. A CT examination of the neck was performed please see the separate report. EKG: NSR, HR 69, incomplete RBBB, no acute ischemia Labs Result diagrams: 06/09/19 07:50 06/09/19 07:50 Labs: Laboratory Results - last 24 hr 06/09/19 06/09/19 06/09/19 07:50 07:50 07:50 WBC 8.06 RBC 3.95 L Hgb 9.6 L Hct 33.8 L MCV 85.6 MCH 24.3 L MCHC 28.4 L RDW 16.3 H Plt Count 270 MPV 10.0 Immature Gran % 0.1 Neutrophils % 69.4 Lymphocytes % 20.7 Monocytes % 5.6 Eosinophils % 3.8 Basophils % 0.4 Absolute Neutrophils 5.59 Absolute Lymphocytes 1.67 Absolute Monocytes 0.45 Absolute Eosinophils 0.31 Absolute Basophils 0.03 Differential Comment Rbc morph reviewed RBC Morphology See below Polychromasia Present Hypochromasia 2+ Anisocytosis 1+ D-Dimer 874 H Sodium 142 Potassium 4.4 Chloride 102 Carbon Dioxide 33.4 H Anion Gap 6.6 BUN 36 H D Creatinine 1.85 H Estimated GFR/1.73 m2 26.43 Glucose 282 H D Calcium 8.8 Magnesium 1.7 L Total Bilirubin 0.2 AST 12 L ALT 16 Alkaline Phosphatase 84 Troponin I < 0.05 NT-Pro-B Natriuret Pep 217 Total Protein 7.5 Albumin 2.8 L Procalcitonin Urine Color Urine Clarity Urine pH Ur Specific [place] Urine Protein Urine Ketones Urine Blood Urine Nitrite Urine Bilirubin Urine Urobilinogen Ur Leukocyte Esterase Urine RBC Urine WBC Ur Epithelial Cells Urine Crystals Urine Bacteria Urine Casts Urine Mucus Urine Other Ur Culture Indicated? Urine Glucose 06/09/19 06/09/19 06/09/19 10:42 10:42 14:00 WBC RBC Hgb Hct MCV MCH MCHC RDW Plt Count MPV Immature Gran % Neutrophils % Lymphocytes % Monocytes % Eosinophils % Basophils % Absolute Neutrophils Absolute Lymphocytes Absolute Monocytes Absolute Eosinophils Absolute Basophils Differential Comment RBC Morphology Polychromasia Hypochromasia Anisocytosis D-Dimer Sodium Potassium Chloride Carbon Dioxide Anion Gap BUN Creatinine Estimated GFR/1.73 m2 Glucose Calcium Magnesium Total Bilirubin AST ALT Alkaline Phosphatase Troponin I < 0.05 NT-Pro-B Natriuret Pep Total Protein Albumin Procalcitonin < 0.1 Urine Color Straw Urine Clarity Sl cloudy Urine pH 6.5 Ur Specific [place] 1.015 Urine Protein Negative Urine Ketones Negative Urine Blood Negative Urine Nitrite Negative Urine Bilirubin Negative Urine Urobilinogen 0.2 Ur Leukocyte Esterase Small H Urine RBC 0-2 Urine WBC 20-50 Ur Epithelial Cells Many Urine Crystals Negative Urine Bacteria Few Urine Casts Negative Urine Mucus Negative Urine Other Mod transitional Ur Culture Indicated? No/sq. contamination Urine Glucose Negative Last Vital Signs Temp 36.5 C 06/09/19 14:31 Pulse 62 06/09/19 14:17 Resp 17 06/09/19 14:17 BP 123/55 L 06/09/19 14:17 Pulse Ox 94 L 06/09/19 14:17
[2019-06-09] MEDS: PIPERACILLIN/TAZO 3.375 GM in Normal Saline 50 ML IVPB (20:38)
[2019-06-09] MEDS: Apixaban 2.5 MG TAB PO (20:41)
[2019-06-09] MEDS: Gabapentin 300 MG CAP 900 MG PO (20:42)
[2019-06-09] MEDS: hydrALAZINE 25 MG TAB PO (20:42)
[2019-06-09] MEDS: Isosorbide Dinitrate 10 MG TAB 30 MG PO (20:43)
[2019-06-09] MEDS: Atorvastatin 40 MG TAB PO (20:46)
[2019-06-09] MEDS: Insulin Aspart 300 UNITS/3 ML PEN SC (20:48)
[2019-06-09] MEDS: Insulin Glargine 300 UNITS/3 ML PEN 50 UNITS SC (20:49)
[2019-06-09] MEDS: Normal Saline 500 ML 30 ML IV (20:53)
[2019-06-09] MEDS: Normal Saline Flush 10 ML SYR (21:16)
[2019-06-09] MEDS: Normal Saline Flush 10 ML SYR IVP (23:34)
[2019-06-10] VITALS (15 sets, daily range): BP systolic 102–161; BP diastolic 48–85; PULSE 57–63; RESP 2–21; TEMP 36.1–36.8; O2SAT 92–99
[2019-06-10] MEDS: PIPERACILLIN/TAZO 3.375 GM in Normal Saline 50 ML IVPB ×3 (01:47→14:58)
[2019-06-10] MEDS: Pantoprazole 40 MG TABCR PO (06:20)
[2019-06-10] MEDS: Albuterol/Ipratropium 3 ML UPD VIAL UPD ×2 (06:21→11:55)
[2019-06-10] MEDS: Acetaminophen 325 MG TAB PO (06:33)
[2019-06-10 06:52] LABS: Abs Immature Grans 0.03 k/cumm (0.0-0.09); Absolute Basophil Count 0.03 k/cumm (0.0-0.2); Absolute Eosinophil Count 0.42 k/cumm (0.0-0.7); Absolute Lymphocyte Count 2.17 k/cumm (1.2-3.4); Absolute Monocyte Count 0.54 k/cumm (0.11-0.7); Absolute Neutrophil Count 6.28 k/cumm (1.2-6.7); Basophils % 0.3; Eosinophils % 4.4; HCT 32.2 % (36.0-46.0); HGB 9.2 g/dL (12.0-15.5); Immature Grans % 0.3; Lymphocytes % 22.9; Mean Corp. HGB Concentration 28.6 g/dL (32.0-36.0); Mean Corpuscular Hemoglobin 24.1 pg (27.0-33.0); Mean Corpuscular Volume 84.5 fL (80-95); Mean Platelet Volume 9.9 fL (8.0-11.0); Monocytes % 5.7; Neutrophils % 66.4; Platelet Count 264 x1000/uL (130-400); RBC 3.81 m/cumm (4.00-5.20); RBC Distribution Width 16.6 % (11.7-14.6); White Blood Cell Count 9.47 k/cumm (4.4-10.8)
[2019-06-10 07:03] LABS: BUN 32 mg/dL (7-18); CREATININE 1.87 mg/dL (0.55-1.02); Calcium 9.2 mg/dL (8.5-10.1); Chloride 100 mmol/L (98-107); Estimated GFR 26.11 (mL/min/1.73m2); Glucose 214 mg/dL (70-100); Magnesium 1.9 mg/dL (1.8-2.4); Sodium 142 mmol/L (136-145)
[2019-06-10 07:21] LABS: Procalcitonin < 0.1 ng/mL
[2019-06-10] MEDS: Clopidogrel 75 MG TAB PO (08:13)
[2019-06-10] MEDS: Gabapentin 300 MG CAP 900 MG PO ×2 (08:13→14:23)
[2019-06-10] MEDS: Isosorbide Dinitrate 10 MG TAB 30 MG PO (08:13)
[2019-06-10] MEDS: Ferrous Sulfate 325 MG TAB PO (08:13)
[2019-06-10] MEDS: PARoxetine 20 MG TAB PO (08:14)
[2019-06-10] MEDS: amLODIPine 2.5 MG TAB PO (08:14)
[2019-06-10] MEDS: Metoprolol CR 25 MG TABCR PO (08:14)
[2019-06-10] MEDS: Apixaban 2.5 MG TAB PO (08:14)
[2019-06-10] MEDS: Cholecalciferol (Vitamin D3) 1,000 UNIT TAB 1000 UNITS PO (08:14)
[2019-06-10] MEDS: hydrALAZINE 25 MG TAB PO ×2 (08:14→14:23)
--- NOTE | 2019-06-10 08:15 | W.PM.PROGNOT ---
Date of Service Date of service: 06/10/19 Time of Service: 08:16 Subjective Subjective Interval history since last seen: Afebrile, not requiring O2. Awaiting VQ scan. Objective Objective Clinical Data: Abnormal lab results 06/09/19 06/09/19 06/09/19 Range/Units 07:50 07:50 07:50 RBC 3.95 L (4.00-5.20) m/cumm Hgb 9.6 L (12.0-15.5) g/dL Hct 33.8 L (36.0-46.0) % MCH 24.3 L (27.0-33.0) pg MCHC 28.4 L (32.0-36.0) g/dL RDW 16.3 H (11.7-14.6) % D-Dimer 874 H (<500) ng/mlFEU Carbon Dioxide 33.4 H (21.0-32.0) mmol/L BUN 36 H D (7-18) mg/dL Creatinine 1.85 H (0.55-1.02) mg/dL Glucose 282 H D (70-100) mg/dL Magnesium 1.7 L (1.8-2.4) mg/dL AST 12 L (15-37) U/L Albumin 2.8 L (3.4-5.0) g/dL Ur Leukocyte Esterase (Negative) 06/09/19 06/10/19 06/10/19 Range/Units 14:00 06:23 06:23 RBC 3.81 L (4.00-5.20) m/cumm Hgb 9.2 L (12.0-15.5) g/dL Hct 32.2 L (36.0-46.0) % MCH 24.1 L (27.0-33.0) pg MCHC 28.6 L (32.0-36.0) g/dL RDW 16.6 H (11.7-14.6) % D-Dimer (<500) ng/mlFEU Carbon Dioxide 35.0 H (21.0-32.0) mmol/L BUN 32 H (7-18) mg/dL Creatinine 1.87 H (0.55-1.02) mg/dL Glucose 214 H (70-100) mg/dL Magnesium (1.8-2.4) mg/dL AST (15-37) U/L Albumin (3.4-5.0) g/dL Ur Leukocyte Esterase Small H (Negative) Vital Signs Temperature 36.8 C 06/10/19 00:05 Temperature Source Temporal Artery Scan 06/10/19 00:05 Pulse 66 06/09/19 23:40 Pulse Rhythm Regular 06/09/19 23:35 Pulse Strength Normal 06/09/19 11:06 Pulse 64 06/09/19 23:14 Respiratory Rate 17 06/09/19 23:14 Respiratory Effort 06/09/19 23:35 Respiratory Depth Normal 06/09/19 23:35 Respiratory Pattern Normal 06/09/19 23:35 Blood Pressure 115/53 L 06/09/19 23:14 Blood Pressure Mean 69 06/09/19 23:14 Blood Pressure Position Supine 06/09/19 11:06 Pulse Oximetry 93 L 06/09/19 23:12 Oxygen Delivery Method Room Air 06/09/19 20:30 Oxygen Flow Rate 0 06/09/19 20:30 Pain Level 0 06/09/19 20:30 Intake & Output 06/09/19 06/09/19 06/10/19 11:59 23:59 11:59 Intake Total 559.5 / 559.5 100 / 100 Output Total 500 / 500 600 / 600 Balance 59.5 / 59.5 -500 / -500 Weight 82.372 kg 79.6 kg 79.4 kg Intake: IV 79.5 / 79.5 100 / 100 Oral 480 / 480 Output: Urine 500 / 500 600 / 600 Other: Urine Color Pale Pale Yellow Yellow Urine Appearance Clear Clear Urine Odor None None Voiding Methods Bedside Commode Laboratory Results WBC 9.47 k/cumm (4.4-10.8) 06/10/19 06:23 RBC 3.81 m/cumm (4.00-5.20) L 06/10/19 06:23 Hgb 9.2 g/dL (12.0-15.5) L 06/10/19 06:23 Hct 32.2 % (36.0-46.0) L 06/10/19 06:23 MCV 84.5 fL (80-95) 06/10/19 06:23 MCH 24.1 pg (27.0-33.0) L 06/10/19 06:23 MCHC 28.6 g/dL (32.0-36.0) L 06/10/19 06:23 RDW 16.6 % (11.7-14.6) H 06/10/19 06:23 Plt Count 264 x1000/uL (130-400) 06/10/19 06:23 MPV 9.9 fL (8.0-11.0) 06/10/19 06:23 Immature Gran % 0.3 06/10/19 06:23 Neutrophils % 66.4 06/10/19 06:23 Lymphocytes % 22.9 06/10/19 06:23 Monocytes % 5.7 06/10/19 06:23 Eosinophils % 4.4 06/10/19 06:23 Basophils % 0.3 06/10/19 06:23 Absolute Neutrophils 6.28 k/cumm (1.2-6.7) 06/10/19 06:23 Absolute Lymphocytes 2.17 k/cumm (1.2-3.4) 06/10/19 06:23 Absolute Monocytes 0.54 k/cumm (0.11-0.7) 06/10/19 06:23 Absolute Eosinophils 0.42 k/cumm (0.0-0.7) 06/10/19 06:23 Absolute Basophils 0.03 k/cumm (0.0-0.2) 06/10/19 06:23 Differential Comment Rbc morph reviewed 06/09/19 07:50 RBC Morphology See below 06/09/19 07:50 Polychromasia Present 06/09/19 07:50 Hypochromasia 2+ 06/09/19 07:50 Anisocytosis 1+ 06/09/19 07:50 D-Dimer 874 ng/mlFEU (<500) H 06/09/19 07:50 Sodium 142 mmol/L (136-145) 06/10/19 06:23 Potassium 4.0 mmol/L (3.5-5.1) 06/10/19 06:23 Chloride 100 mmol/L (98-107) 06/10/19 06:23 Carbon Dioxide 35.0 mmol/L (21.0-32.0) H 06/10/19 06:23 Anion Gap 7.0 mmol/L (3-11) 06/10/19 06:23 BUN 32 mg/dL (7-18) H 06/10/19 06:23 Creatinine 1.87 mg/dL (0.55-1.02) H 06/10/19 06:23 Estimated GFR/1.73 m2 26.11 (mL/min/1.73m2) 06/10/19 06:23 Glucose 214 mg/dL (70-100) H 06/10/19 06:23 Calcium 9.2 mg/dL (8.5-10.1) 06/10/19 06:23 Magnesium 1.9 mg/dL (1.8-2.4) 06/10/19 06:23 Total Bilirubin 0.2 mg/dL (0.2-1.0) 06/09/19 07:50 AST 12 U/L (15-37) L 06/09/19 07:50 ALT 16 U/L (14-59) 06/09/19 07:50 Alkaline Phosphatase 84 U/L (46-116) 06/09/19 07:50 Troponin I < 0.05 ng/mL (0.00-0.06) 06/09/19 10:42 NT-Pro-B Natriuret Pep 217 pg/mL (-299) 06/09/19 07:50 Total Protein 7.5 g/dL (6.4-8.2) 06/09/19 07:50 Albumin 2.8 g/dL (3.4-5.0) L 06/09/19 07:50 Procalcitonin < 0.1 ng/mL 06/10/19 06:23 Urine Color Straw (Yellow) 06/09/19 14:00 Urine Clarity Sl cloudy (Clear) 06/09/19 14:00 Urine pH 6.5 (5-8) 06/09/19 14:00 Ur Specific [place] 1.015 (1.005-1.025) 06/09/19 14:00 Urine Protein Negative mg/dL (Negative) 06/09/19 14:00 Urine Ketones Negative mg/dL (Negative) 06/09/19 14:00 Urine Blood Negative (Negative) 06/09/19 14:00 Urine Nitrite Negative (Negative) 06/09/19 14:00 Urine Bilirubin Negative (Negative) 06/09/19 14:00 Urine Urobilinogen 0.2 EU/dL (Up TO 0.2) 06/09/19 14:00 Ur Leukocyte Esterase Small (Negative) H 06/09/19 14:00 Urine RBC 0-2 (0-2) 06/09/19 14:00 Urine WBC 20-50 HPF (0-5) 06/09/19 14:00 Ur Epithelial Cells Many HPF (Negative) 06/09/19 14:00 Urine Crystals Negative HPF (Negative) 06/09/19 14:00 Urine Bacteria Few HPF (Negative) 06/09/19 14:00 Urine Casts Negative LPF (Negative) 06/09/19 14:00 Urine Mucus Negative (Negative) 06/09/19 14:00 Urine Other Mod transitional (Negative) 06/09/19 14:00 Ur Culture Indicated? No/sq. contamination 06/09/19 14:00 Urine Glucose Negative mg/dL (Negative) 06/09/19 14:00
[2019-06-10] MEDS: Furosemide 40 MG/4 ML VIAL IVP (08:30)
[2019-06-10] MEDS: busPIRone 5 MG TAB 7.5 MG PO (08:31)
[2019-06-10] MEDS: Insulin Aspart 300 UNITS/3 ML PEN 15 UNITS SC ×3 (08:31→16:59)
[2019-06-10] MEDS: Insulin Aspart 300 UNITS/3 ML PEN SC ×3 (08:32→17:00)
[2019-06-10] MEDS: Insulin Glargine 300 UNITS/3 ML PEN 70 UNITS SC (08:32)
[2019-06-10] MEDS: Normal Saline Flush 10 ML SYR IVP (08:42)
--- NOTE | 2019-06-10 12:02 | DI.NM_ITS ---
EXAM: NM LUNG SCAN VENT PERF AEROS CLINICAL HISTORY: SOB, elevated d-dimer, CKD. TECHNIQUE: Injected Dose: Ventilation: 45 mCi Tc-99m DTPA via inhalation Perfusion: 4 mCi Tc-99m MAA via IV COMPARISON: XR CHEST 2V PA LATERAL from 05/26/2019 XR PORTABLE CHEST AP from 06/09/2019 FINDINGS: Chest X-Ray: Clear lungs. Perfusion: Normal. Ventilation:Normal Mild clumping of the radiopharmaceutical near the antionette. Otherwise normal. IMPRESSION: 1. Low probability VQ examination. . . . Modified PIOPED II criteria Probability Criteria High Two or more segments of V/Q mismatch Low Normal Perfusion, Non segmental perfusion abnormalitie s, pleural effusion in at least 1/3 of pleural cavity with no other defect Radiograph/perfusion matched defect in mid to upper lung confined to segment, one to three small segmental perfusion defects (<25% of segment) Perfusion defect smaller than corresponding radiogra phic lesion. Intermediate All other findings
--- NOTE | 2019-06-10 13:30 | PT.INIE ---
Date of service: 06/10/19 Time of Service: 09:35 PT Notes Inpatient Physical Therapy Evaluation Date: 06/10/2019 Referring Doctor: Dominique Choi MD PT Orders: PT CONSULT: Limited Ability Precautions: Fall. Standard. Activity as tolerated. Patient Profile/Admitting Diagnosis: Patient is a 79-year-old female admitted to the ED on 06/09/2019 with chief complaints of shortness of breath, loss of voice, and sore throat. Patient was diagnosed with with HCAP, Laryngitis, coronary artery disease and chronic kidney disease. PMHX: Medical History (Updated 06/09/19 @ 19:09 by Dominique Choi MD) CAD (coronary artery disease) (Chronic) Chronic diastolic CHF (congestive heart failure) (Chronic) CKD (chronic kidney disease) (Acute) COPD (chronic obstructive pulmonary disease) (Chronic) COPD with acute exacerbation (Inactive) Diabetes mellitus (Chronic) Hypothyroidism (Chronic) Obesity (BMI 30.0-34.9) (Chronic) Surgical History (Updated 05/26/19 @ 12:17 by Dominique Choi MD) H/O cardiac catheterization (Chronic) [address] S/P arteriovenous (AV) fistula creation (Acute) [facility] in [place] Social History/Home Situation: Patient lives with her daughter in [facility]. Her daughter works during the day and Ms. Bean goes to [employer] [facility] day[facility] 5 times a week. Equipment Owned/DME: She has a walker and cane but does not use them. Subjective: Ms. Bean denies pain and discomfort. She feels very confident in her ability to ambulate in her home. She is agreeable to PT and denies headache, dizziness, and lightheadedness. Objective: General Observation: Patient is seen laying supine in bed with HOB elevated. She has a disconnected IV in her R UE, and a telemetric monitor was removed by RN. Mental Status: Alert and oriented x 4 Pain: 0/10 Vital Signs: HR 59 BPM supine, 70 BPM sitting ROM: Right Lower Extremity: Hip flexion WFL. Hip abduction WFL. Knee flexion WFL. Ankle dorsiflexion ?0 degrees. Ankle plantarflexion WFL. Left Lower Extremity: Hip flexion WFL. Hip abduction WFL. Knee flexion WFL. Ankle dorsiflexion ? 0 degrees. Ankle plantarflexion WFL. Strength: Right Lower Extremity: Hip flexors 4/5. Hip abductors 5/5. Knee flexors 5/5. Knee extensors 4/5. Ankle dorsiflexors 2-/5. Ankle plantarflexors 5/5. Left Lower Extremity: Hip flexors 4/5. Hip abductors 5/5. Knee flexors 5/5. Knee extensors 4/5. Ankle dorsiflexors 2-/5. Ankle plantarflexors 5/5. Bed Mobility/Transfers: Rolling Independent Supine to sit Independent Sit to supine Independent Sit to stand Independent Stand to sit Independent Bed to chair Supervision Chair to bed Supervision Gait: Patient ambulated 25? with FWW with supervision and wheelchair follow. She exhibited reciprocal gait with no deviations from her normal pattern. She then ambulated 150? without the FWW using the same gait pattern. She required a break at 100? due to leg pain, and another abrupt break at 125? due to leg pain. Balance: Static Sitting: Normal Dynamic Sitting: Normal Static Standing: Normal Dynamic Standing: Good Special Tests: Mobility Limitations Standardized Measure [facility] 6 clicks Basic Mobility Inpatient Short Form: Raw Score: 22 CMS Score: 26% Informed Consent/Education: Patient instructed in purpose of PT consult and plan of care. Assessment: Patient is a 79 year old female admitted to the ED with HCAP and laryngitis. She is cared for by her daughter, and attends organized activities during the day while her daughter is at work. She was able to ambulate very well but appeared deconditioned as she required a couple of breaks due to leg pain. She is motivated to return home with her daughter. Her prognosis is fair. Patient presents with clinical signs and symptoms consistent with current/admitting diagnoses that have resulted to mobility limitations, gait instability, generalized weakness, and impairment of motor control as demonstrated by the following impairment level findings: 1. Decreased strength to B ankle dorsiflexors 2. Impaired standing tolerance 3. Impaired activity tolerance 4. Limitation of joint range of motion in ankle dorsiflexion Impairments are contributing to the following functional limitations: 1. Increase completion time for mobility ADL performance 2. Increased fall risk Patient is assessed as a 16635 moderate complexity based on the following: History: Patient was diagnosed with with HCAP, Laryngitis, coronary artery disease and chronic kidney disease. Examination: Demonstrable impairment in strength, balance, and range of motion with underlying impairments and functional limitations as documented above Presentation: Evolving Decision Makin Moderate complexity Goals: Goals X1 week 1. Bed-Chair independent 2. Chair-Bed independent 3. Independent gait on level surface without an assistive device for at least 300 feet without report of pain nor dyspnea 4. Independent stair negotiation while holding onto bilateral rails for at least 10 steps without report of pain nor dyspnea 5. Independent with home exercise program 6. Good static and dynamic standing balance/tolerance Plan of Care/Treatment Plan: 1-2x/day, 7 days/week x 1 week. Plan of care has been reviewed with the N[employer]SE [employer] providing the service under Physical Therapy direction. Initiate Physical Therapy intervention for strengthening, bed mobility, transfers, gait, stairs, balance training, use of assistive device. DISCHARGE RECOMMENDATIONS: Patient is to be discharged under the care of her daughter after all of the above goals are met and she is medically stable. Patient will benefit from home health PT services in order to progress mobility level using least restrictive assistive ambulatory device, assess home safety, identify additional equipment needs, and establish a functional maintenance program that will increase ability of patient to remain at home. TREATMENT CODE/TIME: 37995 x 19 minutes beginning at 9:35 AM. Thank you very much for this referral. Richard Tobar, [facility] With a supervision of: Theresa Pro PT, DPT, CLT [facility]
--- NOTE | 2019-06-10 13:51 | OTIE_ITS ---
Occupational Therapy Notes Inpatient Occupational Therapy Evaluation Date: 06/10/19 Referring Doctor:Dominique Choi MD OT Orders: Eval and Treat Precautions: Fall, standard PATIENT PROFILE/ADMITTING DIAGNOSIS: Pt is a 79 year old female who was admitted to [facility] through the ER for HCAP and laryngitis. She is currently being tx in the ICU. Past Medical History: Medical History (Updated 06/09/19 @ 19:09 by Dominique Choi MD) CAD (coronary artery disease) (Chronic) Chronic diastolic CHF (congestive heart failure) (Chronic) CKD (chronic kidney disease) (Acute) COPD (chronic obstructive pulmonary disease) (Chronic) COPD with acute exacerbation (Inactive) Diabetes mellitus (Chronic) Hypothyroidism (Chronic) Obesity (BMI 30.0-34.9) (Chronic) Surgical History (Updated 05/26/19 @ 12:17 by Dominique Choi MD) H/O cardiac catheterization (Chronic) [address] S/P arteriovenous (AV) fistula creation (Acute) [facility] in [place] Social History/Home Situation: Pt lives in her daughters home. She reports that she is totally (I) at her baseline level of function. She states that she attends an adult day program from 8-5 and is able to participate in activities like Bingo with her friends. When she is home she reports that she cannot drive and her daughter (A) With cooking/laundry. Equipment owned/DME: [employer], [employer], pt states that she does not use them because she doesn't need them. SUBJECTIVE: Pt was sitting in chair when OT arrived. She was agreeable to OT session and reports that she does feel that she is (I) in all ADLs. OBJECTIVE: General Observation: Pleasant and able to answer questions Mental Status: A&Ox3 Pain: no c/o pain ROM: RUE AROM WFL L UE AROM WFL STRENGTH: RUE 4/5 throughout globally with strong hide mill worker LUE 4/5 throughout globally with strong hide mill worker FUNCTIONAL MOBILITY/ADLS: Transfers no (A) device Sit-Stand SBA Stand-sit SBA BATHING Pt denies, she reports that she performed this prior to OT session, however with discussion with nursing, pt had not performed this yet today. DRESSING Dressing LE (I) don and doffing (B) socks GROOMING Sitting in chair (I) with brushing hair with min (A) for back of head TOILETING NT EATING NT BALANCE: Static sitting Normal Dynamic Sitting Normal Static Standing Normal Dynamic Standing Good SPECIAL TESTS: Daily Activity Limitations Standardized Measure [facility] AM PAC ?6 clicks? Daily Activity Inpatient Short Form: Raw score: 21 INFORMED CONSENT/EDUCATION: Pt instructed in purpose of OT Consult and plan of care. ASSESSMENT: Patient is a 79-year-old female referred to occupational therapy services with diagnosis of HCAP and laryngitis. Patient presents with clinical signs and symptoms consistent with dx, as demonstrated by the following impairment level findings/functional limitations: Decreased functional activity tolerance, decreased performance of standing ADLs/IADLs, decreased LE bathing and dressing without increased performance time. Limitations in ADL/IADL and functional activities. AMPAC score 21 Patient is assessed as a Moderate 12026 complexity based on the following: History: See Above Examination: See functional limitations as listed above Presentation: Evolving Decision Making: AMPAC score 21 GOALS Goals x1 week 1. Transfers LRD (S) 2. Dressing (I) in sitting position 3. Bathing (I) in sitting position 4. Toileting (I) on toilet 5. Eating (I) 6. Pt will be (I) with brushing hair standing at sink PLAN OF CARE/TREATMENT PLAN: 1x/day, 5 days/ week x 1week Initiate Occupational Therapy Services for bathing, dressing, grooming, toileting, eating, transfer training. DISCHARGE RECOMMENDATIONS - Home when medically cleared per MD. TREATMENT TIME/MINUTES/CODES 29145, 47473, 15 minutes (10:05) Carole Mchugh OTR/L [facility]
--- NOTE | 2019-06-10 15:42 | PT.INTREAT ---
Date of service: 06/10/19 Time of Service: 15:42 PT Notes Inpatient Physical Therapy Treatment Note [facility] Date: 06/10/19 PRECAUTIONS: Fall SUBJECTIVE: Karina is agreeable to participating in PT this afternoon. OBJECTIVE: PAIN: Patient c/o significant R trujillo pain BED MOBILITY/TRANSFERS Supine-sit: I Sit-supine: I Sit-stand: I Stand-sit: I GAIT Assistive Device: No AD Weight bearing: Full Assist: CGA-SBA Distance: 60' + 40' + 20' x2 Deviation: Seated rest x3, c/o increased R LE pain, LOB x2 with Min A for recovery STAIRS: Up/down 6x4 and 4x6 using B rails and a step-over pattern with supervision. ASSESSMENT: Patient tolerated session with c/o increased trujillo pain on R with gait training, causing her to require seated rests. PLAN: Continue with PT's POC TREATMENT CODE/TIME: 25 minutes; 00581 x2
--- NOTE | 2019-06-10 16:08 | DSE_ITS ---
Date of service: 06/10/19 Time of Service: 16:08 DS: Diagnosis Discharge Diagnosis (1) HCAP (healthcare-associated pneumonia): Status: Suspected Asessment and Plan: mild, essentially asymptomatic (2) Laryngitis: Status: Acute (3) CAD (coronary artery disease): Status: Chronic (4) CKD (chronic kidney disease): Status: Acute (5) Diabetes mellitus: Status: Chronic (6) COPD (chronic obstructive pulmonary disease): Status: Chronic (7) Chronic diastolic CHF (congestive heart failure): Status: Chronic Discharge Plan Disposition Patient Disposition: HOME Condition: Stable Discharge Details Reason For Visit: SUSPECTED PE, CHF/COPD Admit Date/Time: 06/09/19 12:37 Admit Provider: Dominique Choi Attending Provider: Dominique Choi Primary Care Provider: Camilla Mcdonald ED Provider: Lalitha Whitt Hospital Course Hospital Course: Ms Bean is a 79 year old female with PMHx of CAD s/p multiple stents, on plavix and apixaban, non-oxygen dependent COPD, chronic diastolic CHF, CKD, who was admitted to [facility] hospitalist service on 06/09/19 with worsening shortness of breath x 1 day as well as a hoarse voice. She also had marked dyspnea on exertion in the ED, raising suspicion for an acute PE, despite being anticoag ulated. CTA of the chest could not be performed due to the patient's kidney function, and VQ study was not available at our facility until 06/10/19 - it was negative. Meanwhile, the patient's neck imaging revealed a RUL pneumonia. The patient was started on IV zosyn. She also received a dose of IV lasix x 1. With these measures, her condition returned to her baseline. She was able to ambulate with PT not requiring oxygen and without significant exertional dyspnea. The patient could benefit from outpatient PT and she is able to return to her daycare program at [place]. The patient is medically stable for discharge with 5 more days of antibiotics (augmentin). Care for patient as well as completion of her discharge summary on day of discharge took 45 minutes. Home Meds and New Rx's Prescriptions: New amoxicillin-pot clavulanate [Augmentin] 500-125 mg tablet 1 tab PO BID Qty: 10 RF: 0 Continued atorvastatin 40 mg Tablet 40 mg PO HS RF: 0 amlodipine [Norvasc] 2.5 mg Tablet 2.5 mg PO DAILY RF: 0 buspirone 7.5 mg Tablet 7.5 mg PO DAILY RF: 0 cholecalciferol (vitamin D3) 1,000 unit Capsule 1,000 unit PO DAILY RF: 0 apixaban 2.5 mg Tablet 2.5 mg PO BID RF: 0 hydralazine 25 mg Tablet 25 mg PO TID RF: 0 isosorbide dinitrate 30 mg Tablet 30 mg PO BID RF: 0 ferrous sulfate 325 mg (65 mg iron) Tablet 325 mg PO DAILY RF: 0 gabapentin 300 mg Capsule 900 mg PO TID RF: 0 metoprolol succinate 25 mg Tablet Extended Release 24 Hr 25 mg PO DAILY RF: 0 nitroglycerin [Nitrostat] 0.4 mg Tablet, Sublingual 0.4 mg SUBLINGUAL Q5M PRNRF: 0 paroxetine HCl [Paxil] 20 mg Tablet 20 mg PO DAILY RF: 0 pantoprazole [Protonix] 40 mg Tablet,Delayed Release (Dr/Ec) 40 mg PO DAILY AM RF: 0 clopidogrel 75 mg Tablet 75 mg PO DAILY RF: 0 dicyclomine 20 mg Tablet 20 mg PO DAILY PRNRF: 0 insulin lispro [Humalog KwikPen Insulin] 100 unit/mL Insulin Pen 15 unit SUBCUT AC RF: 0 furosemide 40 mg Tablet 40 mg PO BID@0830,1600 Qty: 10 RF: 0 Lantus Solostar U-100 Insulin 100 unit/mL (3 mL) Insulin Pen 70 units subcut DAILY@0800 Qty: 0 RF: 0 Albuterol-Ipatropium 0.5 mg 3 ml inhalation 4-6XD PRN (Reason: shortness of breath/wheezing) Qty: 60 RF: 0 insulin glargine 100 unit/mL Solution 50 unit SUBCUT HS Qty: 0 RF: 0 Discharge Instructions Instructions: Amoxicillin/Clavulanate Potassium (By mouth), Bacterial Pneumonia ([place]) Additional Instructions: Finish your antibiotics as prescribed. Return to the hospital with any fever, bleeding, chest pain, or shortness of breath. Referrals: Camilla Mcdonald [Primary Care Provider] - [facility] [PHYSICAL THERAPIST] - (eval and treat) Activity:: Activity as Tolerated Equipment/Supplies:: No Equipment Needed Diet:: heart healthy diabetic Discharge Orders Discharge Orders: Discharge Order (Routine); Ordered 06/10/19 Ordered By: Dominique Choi DS: Summary Status at Discharge Functional status at discharge: independent ambulation Overall status at discharge: patient is back to baseline Mental Status: mental status grossly normal Speech and Movement: speech and movement normal Mood: congruent mood Affect: normal affect Exam Narrative Exam Narrative: General: very pleasant elderly female, forgetful, A&Ox3, laying flat in bed, not short of breath HEENT: Atraumatic, normocephalic, EOMI, dry MM, clear oropharynx, no submandibular or cervical lymphadenopathy, no goiter or JVD Heart: RRR, + quiet PATRICE Lungs: Clear at B bases, no crackles, Possibly coarse breath sounds in bilateral upper lung whitaker. GI: abdomen is soft, nontender, nondistended Extremities; LUE AVF with good bruit/palpable thrill; no e/c/c BLE's Psych Mental Status: mental status grossly normal Speech and Movement: speech and movement normal Mood: congruent mood Affect: normal affect DS: Data Vitals/I&O Vitals and I&O: Vital Signs Temperature 36.1 C L 06/10/19 11:43 Temperature Source Temporal Artery Scan 06/10/19 11:43 Pulse 59 L 06/10/19 12:08 Pulse Rhythm Regular 06/10/19 09:10 Pulse Strength Normal 06/09/19 11:06 Pulse 61 06/10/19 08:03 Respiratory Rate 16 06/10/19 14:13 Respiratory Effort 06/10/19 14:13 Respiratory Depth Normal 06/10/19 14:13 Respiratory Pattern Normal 06/10/19 14:13 Blood Pressure 127/49 L 06/10/19 11:29 Blood Pressure Mean 69 06/10/19 11:29 Blood Pressure Position Supine 06/09/19 11:06 Pulse Oximetry 98 06/10/19 14:11 Oxygen Delivery Method Room Air 06/10/19 14:11 Oxygen Flow Rate 0 06/10/19 14:11 Pain Level 0 06/10/19 11:43 Intake & Output 06/09/19 06/10/19 06/10/19 23:59 11:59 23:59 Intake Total 559.5 / 559.5 390 / 390 Output Total 500 / 500 600 / 1380 780 / 1380 Balance 59.5 / 59.5 -210 / -990 -780 / -990 Weight 79.6 kg 79.4 kg Intake: IV 79.5 / 79.5 150 / 150 Oral 480 / 480 240 / 240 Output: Urine 500 / 500 600 / 1380 780 / 1380 Other: Urine Color Pale Pale Yellow Yellow Yellow Urine Appearance Clear Clear Clear Urine Odor None None Normal Voiding Methods Bedside Commode Bedside Commode Data Completed and Pending Completed studies during hospitalization [Text1]: CXR 06/09/19: No evidence of acute cardiopulmonary disease CT neck 06/09/19: 1. Pharyngeal edema appears to be present without gross airway obstruction. 2. findings suggesting small area of consolidation in portion of the right upper pulmonary lobe on the most inferior images obtained. XR soft tissue neck 06/09/19: AP and lateral images reveal surgical clips in the lateral aspect of the neck. The oropharynx appears grossly intact. The larynx is poorly demonstrated. The patient is edentulous. A CT examination of the neck was performed please see the separate report. VQ scan 06/10/19: Low probability VQ examination. Labs on day of discharge: Labs from last 24 hours 06/10/19 06/10/19 06/10/19 06:23 06:23 06:23 WBC 9.47 RBC 3.81 L Hgb 9.2 L Hct 32.2 L MCV 84.5 MCH 24.1 L MCHC 28.6 L RDW 16.6 H Plt Count 264 MPV 9.9 Immature Gran % 0.3 Neutrophils % 66.4 Lymphocytes % 22.9 Monocytes % 5.7 Eosinophils % 4.4 Basophils % 0.3 Absolute Neutrophils 6.28 Absolute Lymphocytes 2.17 Absolute Monocytes 0.54 Absolute Eosinophils 0.42 Absolute Basophils 0.03 Sodium 142 Potassium 4.0 Chloride 100 Carbon Dioxide 35.0 H Anion Gap 7.0 BUN 32 H Creatinine 1.87 H Estimated GFR/1.73 m2 26.11 Glucose 214 H Calcium 9.2 Magnesium 1.9 Procalcitonin < 0.1 06/09/19 19:20 Blood Blood Culture - Pending 06/09/19 19:00 Blood Blood Culture - Pending 06/09/19 13:04 Tonsil - Not Specified Streptococcus Screen (IRMA) - Pending Preliminary micro results at discharge 06/09/19 19:20 Blood Culture - Pending Blood 06/09/19 19:00 Blood Culture - Pending Blood 06/09/19 13:04 Streptococcus Screen (IRMA) - Pending Tonsil - Not Specified [facility] Medical History (Updated 06/10/19 @ 16:08 by Dominique Choi MD) CAD (coronary artery disease) (Chronic) Chronic diastolic CHF (congestive heart failure) (Chronic) CKD (chronic kidney disease) (Acute) COPD (chronic obstructive pulmonary disease) (Chronic) COPD with acute exacerbation (Inactive) Diabetes mellitus (Chronic) Hypothyroidism (Chronic) Obesity (BMI 30.0-34.9) (Chronic) Surgical History (Updated 05/26/19 @ 12:17 by Dominique Choi MD) H/O cardiac catheterization (Chronic) [address] S/P arteriovenous (AV) fistula creation (Acute) [facility] in [place] Social History Smoking/Tobacco Use Status: Former Tobacco Use Substance use type: does not use Do you feel safe in your relationship?: Yes
--- NOTE | 2019-06-10 16:40 | PDOC.CMDIS ---
- If Service Date Differs Date of service: 06/10/19 Time of Service: 16:40 LACE Index Scoring Tool - Questions: Length of Stay (in days): 1 Acuity (Admit via E.D.?): Yes Comorbidities: Diabetes w/o Complication, Congestive Heart Failure, Chronic Pulmonary Disease, Liver or Renal Disease E.D. Visits: 2 - Answers: Total Score: 11 Risk of Readmission: High Risk Care Management Discharge Reason for Hospitalization: HCAP Discharge Plan: Karina will be discharged home with new outpatient PT. She will resume services at [facility], which she attends Sunday through Sunday.She will follow up with her PCP and discharge plan of care. Karina will transport home with her daughter via private vehicle. Patient/Family Education Needs: Discharge plan, limitations, follow up plan, Ask Me Three.
[2019-06-10] MEDS: Furosemide 40 MG TAB PO (16:58)
--- NOTE | 2019-06-10 18:29 | OT.INDS ---
Date of service: 06/10/19 Time of Service: 18:29 Occupational Therapy Notes Occupational Therapy Inpatient Discharge Summary Date: 06/10/19 Referring Doctor:Dominique Choi MD OT Orders: Eval and Treat Precautions: Fall, standard PATIENT PROFILE/ADMITTING DIAGNOSIS: Pt is a 79 year old female who was admitted to [facility] through the ER for HCAP and laryngitis. She is currently being tx in the ICU. Past Medical History: Medical History (Updated 06/09/19 @ 19:09 by Dominique Choi MD) CAD (coronary artery disease) (Chronic) Chronic diastolic CHF (congestive heart failure) (Chronic) CKD (chronic kidney disease) (Acute) COPD (chronic obstructive pulmonary disease) (Chronic) COPD with acute exacerbation (Inactive) Diabetes mellitus (Chronic) Hypothyroidism (Chronic) Obesity (BMI 30.0-34.9) (Chronic) Surgical History (Updated 05/26/19 @ 12:17 by Dominique Choi MD) H/O cardiac catheterization (Chronic) [address] S/P arteriovenous (AV) fistula creation (Acute) [facility] in [place] Social History/Home Situation: Pt lives in her daughters home. She reports that she is totally (I) at her baseline level of function. She states that she attends an adult day program from 8-5 and is able to participate in activities like Bingo with her friends. When she is home she reports that she cannot drive and her daughter (A) With cooking/laundry. Equipment owned/DME: [employer], [employer], pt states that she does not use them because she doesn't need them. SUBJECTIVE:NT This document serves as a summary of care, no skilled OT services were provided for this documentation. OBJECTIVE: ROM: RUE AROM WFL L UE AROM WFL STRENGTH: RUE 4/5 throughout globally with strong farebox repairer LUE 4/5 throughout globally with strong farebox repairer FUNCTIONAL MOBILITY/ADLS: Transfers no (A) device Sit-Stand SBA Stand-sit SBA BATHING Pt denies, she reports that she performed this prior to OT session, however with discussion with nursing, pt had not performed this yet today. DRESSING Dressing LE (I) don and doffing (B) socks GROOMING Sitting in chair (I) with brushing hair with min (A) for back of head TOILETING NT EATING NT BALANCE: Static sitting Normal Dynamic Sitting Normal Static Standing Normal Dynamic Standing Good ASSESSMENT: Patient is a 79-year-old female referred to occupational therapy services with diagnosis of HCAP and laryngitis. Patient presents with clinical signs and symptoms consistent with dx, as demonstrated by the following impairment level findings/functional limitations: Decreased functional activity tolerance, decreased performance of standing ADLs/IADLs, decreased LE bathing and dressing without increased performance time. Limitations in ADL/IADL and functional activities. Pt was seen for OT consult only and is discharged at this time. GOALS- Not met, pt was seen for OT consult only. 1. Transfers LRD (S) 2. Dressing (I) in sitting position 3. Bathing (I) in sitting position 4. Toileting (I) on toilet 5. Eating (I) 6. Pt will be (I) with brushing hair standing at sink PLAN OF CARE/TREATMENT PLAN: Discharge from skilled OT services. DISCHARGE RECOMMENDATIONS - Home when medically cleared per MD. TREATMENT TIME/MINUTES/CODES N/A Carole Mchugh OTR/L [facility]
== END 2019-06-10 18:10 | disposition home or self-care (01) | DRG 194 ==
LOC: ER 12:58 → ICU 14:04
PROVIDERS: Admitting Provider Internal Medicine; Emergency Provider Student in an Organized Health Care Education/Training Program; PCP Nurse Practitioner Family; Visit Provider Internal Medicine
DX: J18.9 Pneumonia, unspecified organism (principal); J44.0 Chronic obstructive pulmonary disease with (acute) lower respiratory infection; I50.32 Chronic diastolic (congestive) heart failure; Y95 Nosocomial condition; I25.10 Atherosclerotic heart disease of native coronary artery without angina pectoris; N18.9 Chronic kidney disease, unspecified; E11.22 Type 2 diabetes mellitus with diabetic chronic kidney disease; Z79.01 Long term (current) use of anticoagulants; Z79.02 Long term (current) use of antithrombotics/antiplatelets; Z73.89 Other problems related to life management difficulty; E03.9 Hypothyroidism, unspecified; Z87.891 Personal history of nicotine dependence; Z66 Do not resuscitate; Z95.5 Presence of coronary angioplasty implant and graft; Z79.4 Long term (current) use of insulin
CPT/HCPCS: 36410; 36415; 80048; 80053; 84145; 87040; 87449; 87880; 93005; 97162; 97166; 97530; 99223; 99239; 99285; 70360; 70490; 71045; 78582; 81003; 81015; 83735; 83880; 84484; 85025; 85379; 87081; 93010; 94640; J1815; J1940; J2543; J7620

== ENCOUNTER 2019-06-11 20:06 | Emergency (ER) | payer MEDICARE, MEDICAID, SELFPAY ==
[2019-06-11 20:16] VITALS: BP 150/37; PULSE 87; RESP 22; TEMP 36.4; O2SAT 95
--- NOTE | 2019-06-11 21:00 | NUR.NOTE ---
Recent admit for pna. taking abx as prescribed. Pt reports feeling dizzy this evening. Daughter notes increased tremor to right hand. Pt reports intermittently losing her voice. LSCTA.
[2019-06-11 21:08] VITALS: RESP 16
[2019-06-11 22:10] LABS: Abs Immature Grans 0.04 k/cumm (0.0-0.09); Absolute Basophil Count 0.03 k/cumm (0.0-0.2); Absolute Eosinophil Count 0.48 k/cumm (0.0-0.7); Absolute Lymphocyte Count 2.36 k/cumm (1.2-3.4); Absolute Monocyte Count 0.45 k/cumm (0.11-0.7); Absolute Neutrophil Count 6.35 k/cumm (1.2-6.7); Basophils % 0.3; Eosinophils % 4.9; HCT 36.8 % (36.0-46.0); HGB 10.7 g/dL (12.0-15.5); Immature Grans % 0.4; Lymphocytes % 24.3; Mean Corp. HGB Concentration 29.1 g/dL (32.0-36.0); Mean Corpuscular Hemoglobin 24.5 pg (27.0-33.0); Mean Corpuscular Volume 84.2 fL (80-95); Mean Platelet Volume 9.5 fL (8.0-11.0); Monocytes % 4.6; Neutrophils % 65.5; Platelet Count 296 x1000/uL (130-400); RBC 4.37 m/cumm (4.00-5.20); White Blood Cell Count 9.71 k/cumm (4.4-10.8)
--- NOTE | 2019-06-11 22:19 | DI.RAD_ITS ---
EXAM: XR CHEST 2V PA LATERAL INDICATION: dizziness, recent pneumonia. COMPARISON: XR PORTABLE CHEST AP from 06/09/2019 TECHNIQUE: 2D digital imaging was performed. FINDINGS: The heart is not enlarged. There appear to be mild changes of COPD and pulmonary scarring. No focal consolidation seen. No pleural effusion seen. IMPRESSION: No evidence
[2019-06-11 22:43] LABS: ALT 21 U/L (14-59); AST 16 U/L (15-37); Albumin 3.2 g/dL (3.4-5.0); Alkaline Phosphatase 98 U/L (46-116); Anion Gap 5.1 mmol/L (3-11); BUN 39 mg/dL (7-18); Bilirubin, Total 0.3 mg/dL (0.2-1.0); CO2 37.9 mmol/L (21.0-32.0); CREATININE 2.12 mg/dL (0.55-1.02); Calcium 9.4 mg/dL (8.5-10.1); Chloride 98 mmol/L (98-107); Estimated GFR 22.59 (mL/min/1.73m2); Glucose 158 mg/dL (70-100); Potassium 4.3 mmol/L (3.5-5.1); Sodium 141 mmol/L (136-145); TSH 4.38 uIU/mL (0.36-3.74); Total Protein 8.4 g/dL (6.4-8.2)
--- NOTE | 2019-06-11 23:15 | DI.VRAD_ITS ---
PROCEDURE INFORMATION: Exam: XR Chest, 2 Views Exam date and time: 06/11/2019 10:17 PM Clinical history: 79 years old, female; Other: Dizziness, recent pneumonia TECHNIQUE: Imaging protocol: XR of the chest Views: 2 views. COMPARISON: CR XR PORTABLE CHEST AP 06/09/2019 7:43 AM FINDINGS: Lungs: No pulmonary consolidation is seen. Pleural space: No pleural effusion or pneumothorax is seen. Heart/Mediastinum: Heart size is normal. There is apparent prominence of a right lower lobe pulmonary vascular structure, possibly exacerbated by rotated patient positioning, also seen on the prior exam from 06/09/2019. Bones/joints: The visualized bony structures appear grossly intact Soft tissues: Surgical clips are redemonstrated in the neck. IMPRESSION: No active disease is seen in the chest. Stable chest appearance compared with prior exam from 06/09/2019. Dictated and Authenticated by: Shun Gonzalez MD. Ordering:SAHINA Kimbrough MD
--- NOTE | 2019-06-12 00:07 | NUR.NOTE ---
amb sat 97% To rbr to give urine spec.
[2019-06-12 00:25] VITALS: BP 129/50; PULSE 65; RESP 16; TEMP 36.8; O2SAT 97
--- NOTE | 2019-06-12 00:43 | ED.GENADUL_ITS ---
Discharge Plan Disposition Patient Disposition: HOME Condition: Improving Discharge Details Chief Complaint: Dizzy/Sync Clinical Impression: Pneumonia, SOB (shortness of breath), CKD (chronic kidney disease), Laryngitis Primary Care Provider: Camilla Mcdonald ED Provider: Luis E Gonsalez Home Meds and New Rx's Prescriptions: No Action atorvastatin 40 mg Tablet 40 mg PO HS RF: 0 amlodipine [Norvasc] 2.5 mg Tablet 2.5 mg PO DAILY RF: 0 buspirone 7.5 mg Tablet 7.5 mg PO DAILY RF: 0 cholecalciferol (vitamin D3) 1,000 unit Capsule 1,000 unit PO DAILY RF: 0 apixaban 2.5 mg Tablet 2.5 mg PO BID RF: 0 hydralazine 25 mg Tablet 25 mg PO TID RF: 0 isosorbide dinitrate 30 mg Tablet 30 mg PO BID RF: 0 ferrous sulfate 325 mg (65 mg iron) Tablet 325 mg PO DAILY RF: 0 gabapentin 300 mg Capsule 900 mg PO TID RF: 0 metoprolol succinate 25 mg Tablet Extended Release 24 Hr 25 mg PO DAILY RF: 0 nitroglycerin [Nitrostat] 0.4 mg Tablet, Sublingual 0.4 mg SUBLINGUAL Q5M PRNRF: 0 paroxetine HCl [Paxil] 20 mg Tablet 20 mg PO DAILY RF: 0 pantoprazole [Protonix] 40 mg Tablet,Delayed Release (Dr/Ec) 40 mg PO DAILY AM RF: 0 clopidogrel 75 mg Tablet 75 mg PO DAILY RF: 0 dicyclomine 20 mg Tablet 20 mg PO DAILY PRNRF: 0 insulin lispro [Humalog KwikPen Insulin] 100 unit/mL Insulin Pen 15 unit SUBCUT AC RF: 0 furosemide 40 mg Tablet 40 mg PO BID@0830,1600 Qty: 10 RF: 0 Lantus Solostar U-100 Insulin 100 unit/mL (3 mL) Insulin Pen 70 units subcut DAILY@0800 Qty: 0 RF: 0 Albuterol-Ipatropium 0.5 mg 3 ml inhalation 4-6XD PRN (Reason: shortness of breath/wheezing) Qty: 60 RF: 0 insulin glargine 100 unit/mL Solution 50 unit SUBCUT HS Qty: 0 RF: 0 amoxicillin-pot clavulanate [Augmentin] 500-125 mg tablet 1 tab PO BID Qty: 10 RF: 0 Discharge Instructions Instructions: Laryngitis (ED), Dyspnea (ED), Pneumonia (ED) Additional Instructions: During illness please get plenty of rest, stay well-hydrated, and get good nutrition. Feel free to return the emergency department for any new or significant worsening of symptoms otherwise follow-up with your primary care provider as needed for reassessment. Referrals: Camilla Mcdonald [Primary Care Provider] - (Keep your appointment as scheduled for this Sunday.) Discharge Data Discharge Date/Time-TO BE ENTERED AT DEPARTURE: 06/12/19 01:15 Medical Decision Making Patient presenting to the emergency department for chief complaint of dizziness. Patient had episode of dizziness while walking to the the home today. Antwon mackey's daughter saw her and asked her how she is doing and she stated she felt a little dizzy but otherwise was okay. Daughter was concerned given on discharge from hospital patient was informed that she had a low hemoglobin and so daughters bring her into the emergency department given that she has needed blood transfusions in the past. Patient denies any injury or trauma, chest pain, and states otherwise minimal changes compared to how she was at hospital discharge. Physical exam shows a chronically ill appearing patient that does not appear toxic at this time, afebrile, non-tachycardic, clear lung sounds throughout, normal cardiac exam, normal pedal edema mild posterior pharynx erythema otherwise unremarkable HEENT exam except for muffled voice but otherwise benign exam. Plan to do labs repeat chest x-ray given the daughter states that patient has had pneumonia and was recently discharged from the hospital. Review of labs show no leukocytosis, hemoglobin that is elevated from discharge not to 10.7 up from 9.7, slightly elevated carbon dioxide level at 37.9, continued findings of decreased renal function. Radiologist interpretation shows chest x-ray shows no active disease compared to 06/09/2019. Patient is already on Augmentin for concern of hospital associated pneumonia. Patient was reassessed and had improvement of her laryngitis, and states that she feels better. Patient was able to ambulate with nurse throughout the department with standby assistance only and stated no significant dyspnea on exertion and appeared well. Urine dip was returned and showed small amount of leukocyte esterase otherwise pending microscopic. Pending this result patient was requesting to go home as she states that she feels better. I feel that patient's symptoms are more likely secondary to acute on chronic illness. Given otherwise unremarkable work-up I do feel the patient is able to be safely discharged at this time. Patient was encouraged to stay well-hydrated, get plenty of rest, and take medications as prescribed. Close return precautions were discussed and I feel that daughter is more than responsible to bring back patient back for any new or worsening symptoms. HPI General Mode of arrival: wheelchair . Date/Time Provider Initiated Documentation: 06/11/19 20:55 . Limitations to Documentation: no limitations . Information obtained by: patient, family and RN notes reviewed . History of Present Illness 79 year old F presents to the emergency department with the chief complaint of Episode of dizziness, described as moderate, Quality is described as other (Denies pain or discomfort), Patient started experiencing this hour(s) (1) and it has been intermittent and now resolved. Rest improves symptom(s), Movement worsens symptoms . Patient notes no other symptoms.. Patient did receive the following treatments prior to arrival, none Related Data Home Medications Medication Instructions Recorded Confirmed amlodipine [Norvasc] 2.5 mg PO DAILY 05/20/19 06/11/19 apixaban 2.5 mg PO BID 05/20/19 06/11/19 atorvastatin 40 mg PO HS 05/20/19 06/11/19 buspirone 7.5 mg PO DAILY 05/20/19 06/11/19 cholecalciferol (vitamin D3) 1,000 unit PO DAILY 05/20/19 06/11/19 clopidogrel 75 mg PO DAILY 05/20/19 06/11/19 dicyclomine 20 mg PO DAILY PRN 05/20/19 06/11/19 ferrous sulfate 325 mg PO DAILY 05/20/19 06/11/19 gabapentin 900 mg PO TID 05/20/19 06/11/19 hydralazine 25 mg PO TID 05/20/19 06/11/19 insulin lispro [Humalog KwikPen 15 unit SUBCUT AC 05/20/19 06/11/19 Insulin] isosorbide dinitrate 30 mg PO BID 05/20/19 06/11/19 metoprolol succinate 25 mg PO DAILY 05/20/19 06/11/19 nitroglycerin [Nitrostat] 0.4 mg SUBLINGUAL Q5M PRN 05/20/19 06/11/19 pantoprazole [Protonix] 40 mg PO DAILY AM 05/20/19 06/11/19 paroxetine HCl [Paxil] 20 mg PO DAILY 05/20/19 06/11/19 Albuterol-Ipatropium 3 ml INHALATION 4-6XD PRN #60 each 05/26/19 06/11/19 Lantus Solostar U-100 Insulin 70 units SUBCUT DAILY@0800 #0 ml 05/26/19 06/11/19 furosemide 40 mg PO BID@0830,1600 #10 tab 05/26/19 06/11/19 insulin glargine 50 unit SUBCUT HS #0 ml 05/26/19 06/11/19 amoxicillin-pot clavulanate 1 tab PO BID #10 tab 06/10/19 06/11/19 [Augmentin] Previous Rx's Medication Instructions Recorded Albuterol-Ipatropium 3 ml INHALATION 4-6XD PRN #60 each 05/26/19 Lantus Solostar U-100 Insulin 70 units SUBCUT DAILY@0800 #0 ml 05/26/19 furosemide 40 mg PO BID@0830,1600 #10 tab 05/26/19 insulin glargine 50 unit SUBCUT HS #0 ml 05/26/19 amoxicillin-pot clavulanate 1 tab PO BID #10 tab 06/10/19 [Augmentin] Allergies Allergy/AdvReac Type Severity Reaction Status Date / Time Morphine AdvReac Severe Agitation Uncoded 06/11/19 20:22 General Stated Complaint: Dizzy/Sync JOSH: 3 Review of Systems Constitutional Constitutional: Denies chills, Denies fever(s) and Reports malaise ENT Ears, Nose, Mouth, and Throat: Reports change in voice and Reports sore throat Cardiovascular Cardiovascular: Denies chest pain, Denies pedal edema, Denies palpitations and Reports dyspnea Respiratory Respiratory: Denies cough, Denies hemoptysis and Reports dyspnea Gastrointestinal Gastrointestinal: Denies abdominal pain, Denies diarrhea, Denies nausea and Denies vomiting Genitourinary Genitourinary: Denies dysuria Endocrine Endocrine: Denies palpitations [facility] Medical History CAD (coronary artery disease) (Chronic) Chronic diastolic CHF (congestive heart failure) (Chronic) CKD (chronic kidney disease) (Acute) COPD (chronic obstructive pulmonary disease) (Chronic) COPD with acute exacerbation (Inactive) Diabetes mellitus (Chronic) Hypothyroidism (Chronic) Obesity (BMI 30.0-34.9) (Chronic) Surgical History H/O cardiac catheterization (Chronic) [address] S/P arteriovenous (AV) fistula creation (Acute) [facility] Social History Smoking/Tobacco Use Status: Former Tobacco Use Substance use type: does not use Do you feel safe in your relationship?: Yes Exam Const General: cooperative, comfortable and no acute distress Orientation: alert and awake [facility] Head: normal to inspection, normocephalic and atraumatic Mouth: oral mucosae normal, no drooling and no trismus Throat: posterior oropharynx abnormal erythema Neck Neck: normal visual inspection, full ROM, no lymphadenopathy, no meningeal signs, trachea midline and supple Resp Effort & Inspection: normal respiratory effort and able to speak in complete sentences Auscultation: clear to auscultation bilaterally Cardio Rate: regular rate Rhythm: regular rhythm Heart Sounds: S1 normal, S2 normal, normal S1 and S2, no click, no gallops, no murmurs and no rubs Neuro General: alert, awake, oriented x3, gait normal, tone normal, moves all extremit ies, no meningeal signs, CN's II-XI intact bilaterally and not confused Cognition: normal cognition Speech: speech normal Motor: no pronator drift and tremor right upper extremity intention tremor Sensory Exam: no sensory deficits noted Course Vital Signs Vital signs: Vital Signs Temperature 36.4 C L 06/11/19 20:16 Pulse 87 06/11/19 20:16 Respiratory Rate 22 06/11/19 20:16 Blood Pressure 150/37 H 06/11/19 20:16 Pulse Oximetry 95 06/11/19 20:16 Temperature 36.8 C 06/12/19 00:25 Temperature Source Skin 06/12/19 00:25 Pulse 65 06/12/19 00:25 Respiratory Rate 16 06/12/19 00:25 Respiratory Effort 06/11/19 21:08 Respiratory Depth Normal 06/11/19 21:08 Respiratory Pattern Normal 06/11/19 21:08 Blood Pressure 129/50 L 06/12/19 00:25 Blood Pressure Position Sitting 06/11/19 20:16 Pulse Oximetry 97 06/12/19 00:25 Oxygen Delivery Method Room Air 06/12/19 00:25 Oxygen Flow Rate 0 06/12/19 00:25 Pain Level 0 06/12/19 00:25 Lab/Test Results Lab/Test Results: Laboratory Tests Range/Units 06/11/19 06/11/19 22:00 22:00 WBC (4.4-10.8) k/cumm 9.71 RBC (4.00-5.20) m/cumm 4.37 Hgb (12.0-15.5) g/dL 10.7 L Hct (36.0-46.0) % 36.8 MCV (80-95) fL 84.2 MCH (27.0-33.0) pg 24.5 L MCHC (32.0-36.0) g/dL 29.1 L RDW (11.7-14.6) % 17.0 H Plt Count (130-400) x1000/uL 296 MPV (8.0-11.0) fL 9.5 Immature Gran % 0.4 Neutrophils % 65.5 Lymphocytes % 24.3 Monocytes % 4.6 Eosinophils % 4.9 Basophils % 0.3 Absolute Neutrophils (1.2-6.7) k/cumm 6.35 Absolute Lymphocytes (1.2-3.4) k/cumm 2.36 Absolute Monocytes (0.11-0.7) k/cumm 0.45 Absolute Eosinophils (0.0-0.7) k/cumm 0.48 Absolute Basophils (0.0-0.2) k/cumm 0.03 Sodium (136-145) mmol/L 141 Potassium (3.5-5.1) mmol/L 4.3 Chloride (98-107) mmol/L 98 Carbon Dioxide (21.0-32.0) mmol/L 37.9 H Anion Gap (3-11) mmol/L 5.1 BUN (7-18) mg/dL 39 H Creatinine (0.55-1.02) mg/dL 2.12 H Estimated GFR/1.73 m2 (mL/min/1.73m2) 22.59 Glucose (70-100) mg/dL 158 H Calcium (8.5-10.1) mg/dL 9.4 Magnesium (1.8-2.4) mg/dL 2.0 Total Bilirubin (0.2-1.0) mg/dL 0.3 AST (15-37) U/L 16 ALT (14-59) U/L 21 Alkaline Phosphatase (46-116) U/L 98 Total Protein (6.4-8.2) g/dL 8.4 H Albumin (3.4-5.0) g/dL 3.2 L TSH (0.36-3.74) uIU/mL 4.38 H
[2019-06-12 00:45] LABS: Bilirubin Negative (Negative); Blood Negative (Negative); Clarity Clear (Clear); Glucose Negative (Negative); Ketones Negative (Negative); Leukocyte Esterase Small (Negative); Nitrite Negative (Negative); Specific Gravity 1.015 (1.005-1.025); Urobilinogen 0.2 EU/dL (Up TO 0.2)
[2019-06-12 01:15] LABS: Bacteria Rare HPF (Negative); C & S Indicated? No/Sq. Contamination; Casts Negative LPF (Negative); Crystals Negative HPF (Negative); Epithelial Cells Many HPF (Negative); Mucus Negative (Negative); Other Cells Moderate Renal (Negative); RBC Negative (0-2)
[2019-06-12 01:36] LABS: FREE T4 0.51 ng/dL (0.76-1.46)
--- NOTE | 2019-06-12 08:30 | INDS_ITS ---
Date of service: 06/12/19 PT Notes PT Inpatient Discharge Summary Date: 06/12/2019 Referring Doctor: Dominique Choi MD PT Orders: PT CONSULT: Limited Ability Precautions: Fall. Standard. Activity as tolerated. Patient Profile/Admitting Diagnosis: Patient is a 79-year-old female admitted to the ED on 06/09/2019 with chief complaints of shortness of breath, loss of voice, and sore throat. Patient was diagnosed with with HCAP, Laryngitis, coronary artery disease and chronic kidney disease. PMHX: Medical History (Updated 06/09/19 @ 19:09 by Dominique Choi MD) CAD (coronary artery disease) (Chronic) Chronic diastolic CHF (congestive heart failure) (Chronic) CKD (chronic kidney disease) (Acute) COPD (chronic obstructive pulmonary disease) (Chronic) COPD with acute exacerbation (Inactive) Diabetes mellitus (Chronic) Hypothyroidism (Chronic) Obesity (BMI 30.0-34.9) (Chronic) Surgical History (Updated 05/26/19 @ 12:17 by Dominique Choi MD) H/O cardiac catheterization (Chronic) [address] S/P arteriovenous (AV) fistula creation (Acute) [facility] in [place] Social History/Home Situation: Patient lives with her daughter in [facility]. Her daughter works during the day and Ms. Bean goes to [employer] day[employer] 5 times a week. Equipment Owned/DME: She has a walker and cane but does not use them. Subjective: NC Objective: General Observation: NC Mental Status: NC Pain:NC ROM: Right Lower Extremity: Hip flexion WFL. Hip abduction WFL. Knee flexion WFL. Ankle dorsiflexion ?0 degrees. Ankle plantarflexion WFL. Left Lower Extremity: Hip flexion WFL. Hip abduction WFL. Knee flexion WFL. Ankle dorsiflexion ? 0 degrees. Ankle plantarflexion WFL. Strength: Right Lower Extremity: Hip flexors 4/5. Hip abductors 5/5. Knee flexors 5/5. Knee extensors 4/5. Ankle dorsiflexors 2-/5. Ankle plantarflexors 5/5. Left Lower Extremity: Hip flexors 4/5. Hip abductors 5/5. Knee flexors 5/5. Knee extensors 4/5. Ankle dorsiflexors 2-/5. Ankle plantarflexors 5/5. Bed Mobility/Transfers: Rolling Independent Supine to sit Independent Sit to supine Independent Sit to stand Independent Stand to sit Independent Bed to chair Supervision Chair to bed Supervision Gait: Patient ambulated 60' + 40' + 20' + 20? with FWW with supervision and wheelchair follow. She exhibited reciprocal gait with no deviations from her normal pattern. She also tolerated up and down 6 x 4-inch steps and 4x 6-inch steps while holding onto bilateral rails using step over technique with supervision. Balance: Static Sitting: Normal Dynamic Sitting: Normal Static Standing: Normal Dynamic Standing: Good Assessment: Patient is a 79 year old female admitted to the ED with HCAP and laryngitis. She is cared for by her daughter, and attends organized activities during the day while her daughter is at work. She was able to ambulate very well but appeared deconditioned as she required a couple of breaks due to leg pain. She is motivated to return home with her daughter. Her prognosis is fair. Patient presents with clinical signs and symptoms consistent with current/ admitting diagnoses that have resulted to mobility limitations, gait instability, generalized weakness, and impairment of motor control as demonstrated by the following impairment level findings: 1. Decreased strength to B ankle dorsiflexors 2. Impaired standing tolerance 3. Impaired activity tolerance 4. Limitation of joint range of motion in ankle dorsiflexion Impairments are contributing to the following functional limitations: 1. Increase completion time for mobility ADL performance 2. Increased fall risk Goals: Goals X1 week 1. Bed-Chair independent MET 2. Chair-Bed independent MET 3. Independent gait on level surface without an assistive device for at least 300 feet without report of pain nor dyspnea NOT MET 4. Independent stair negotiation while holding onto bilateral rails for at least 10 steps without report of pain nor dyspnea NOT MET 5. Independent with home exercise program NOT MET 6. Good static and dynamic standing balance/tolerance NOT MET DISCHARGE RECOMMENDATIONS: Patient is to be discharged under the care of her daughter after all of the above goals are met and she is medically stable. Patient will benefit from home health PT services in order to progress mobility level using least restrictive assistive ambulatory device, assess home safety, identify additional equipment needs, and establish a functional maintenance program that will increase ability of patient to remain at home. TREATMENT CODE/TIME: NC. Thank you very much for this referral. Theresa Pro PT, DPT, CLT [facility]
== END 2019-06-12 01:15 | disposition home or self-care (01) ==
PROVIDERS: Emergency Provider Nurse Practitioner Family; PCP Nurse Practitioner Family
DX: J18.9 Pneumonia, unspecified organism (principal); J04.0 Acute laryngitis; N18.9 Chronic kidney disease, unspecified; E11.22 Type 2 diabetes mellitus with diabetic chronic kidney disease; Z79.4 Long term (current) use of insulin; J44.9 Chronic obstructive pulmonary disease, unspecified; Z87.891 Personal history of nicotine dependence
CPT/HCPCS: 36415; 80053; 99284; 71046; 81003; 81015; 83735; 84439; 84443; 85025

== ENCOUNTER → 2019-07-02 13:17 | Outpatient (BNVA) | payer MEDICARE, MEDICAID, SELFPAY | PROVIDERS: PCP Nurse Practitioner Family; Referring Provider Nurse Practitioner Family; Visit Provider Psychiatry & Neurology Neurology | DX: R25.1 Tremor, unspecified (principal); I65.29 Occlusion and stenosis of unspecified carotid artery; Z86.73 Personal history of transient ischemic attack (TIA), and cerebral infarction without residual deficits; Z79.01 Long term (current) use of anticoagulants; M24.542 Contracture, left hand; E11.42 Type 2 diabetes mellitus with diabetic polyneuropathy; Z79.4 Long term (current) use of insulin | CPT/HCPCS: 99205; 99215 ==

== ENCOUNTER → 2019-07-08 12:18 | Outpatient (BNVA) | payer MEDICARE, MEDICAID, SELFPAY | PROVIDERS: PCP Nurse Practitioner Family; Referring Provider Nurse Practitioner Family; Visit Provider Psychiatry & Neurology Neurology | DX: R53.83 Other fatigue (principal); F45.8 Other somatoform disorders; I69.351 Hemiplegia and hemiparesis following cerebral infarction affecting right dominant side; E11.42 Type 2 diabetes mellitus with diabetic polyneuropathy; I48.0 Paroxysmal atrial fibrillation; Z79.4 Long term (current) use of insulin; I50.32 Chronic diastolic (congestive) heart failure | CPT/HCPCS: 99214 ==

== ENCOUNTER 2019-07-13 10:57 | Inpatient (IN) | payer MEDICARE, MEDICAID, SELFPAY ==
[2019-07-13] VITALS (35 sets, daily range): BP systolic 122–166; BP diastolic 36–93; PULSE 59–106; RESP 2–26; TEMP 36.5–37.4; O2SAT 87–100
--- NOTE | 2019-07-13 11:42 | W.ED.GENAD ---
Discharge Plan Disposition Condition: Improving Discharge Details Chief Complaint: GenMedical Admit Date/Time: 07/13/19 14:57 Admit Provider: Betito Lopez Attending Provider: Dominique Choi Primary Care Provider: Camilla Mcdonald ED Provider: Michael Whitt Discharge Instructions Activity:: Activity as Tolerated Equipment/Supplies:: No Equipment Needed Diet:: Carb Counting Discharge Orders Discharge Orders: Discharge Order (Routine); Ordered 07/20/19 Ordered By: Edelmira Oconnor Discharge Data Discharge Date/Time-TO BE ENTERED AT DEPARTURE: 07/13/19 15:42 Medical Decision Making 11:45 --79-year-old female with multiple medical rubs including history of COPD and CHF, hospitalized approximately 1 month ago for pneumonia, returns today with 4 days of worsening cough and shortness of breath. Patient wheezing on exam and tachypneic. Hypoxic saturating in the upper 80s. Patient hemodynamically stable. Supplemental oxygen was applied via nasal cannula and patient reassessed and now saturating in the mid 90s. Tachypnea improved. Screening ECG was reviewed and interpreted by me: Sinus rhythm 67 bpm, left axis deviation noted, right bundle branch block pattern present, nondiagnostic. Suspect COPD exacerbation. Plan to treat with Solu-Medrol 125 mg IV and DuoNeb. Suspect pneumonia. Will obtain chest x-ray and blood cultures. -- cxr interpreted by radiology: IMPRESSION: No definite evidence of acute cardiopulmonary disease. Patient to be admitted to the hospitalist service. Lab Data Lab results reviewed: Yes I reviewed the patient's lab results. HPI General Mode of arrival: ambulatory. Date/Time Provider Initiated Documentation: 07/13/19 11:08. Limitations to Documentation: no limitations. Information obtained by: patient and family. HPI Narrative: 79-year-old female with multiple medical problems including history of COPD, chronic kidney disease, coronary artery disease, congestive heart failure, atrial fibrillation, CVA, here today with chief complaint of cough. Patient notes she is had cough over the past 4 days. Cough worsening. Intermittently productive. No modifiers. She has associated shortness of breath, fatigue and generalized weakness. No associated fever. No leg swelling. Related Data Home Medications Medication Instructions Recorded Confirmed amlodipine [Norvasc] 2.5 mg PO DAILY 05/20/19 08/03/19 apixaban 2.5 mg PO BID 05/20/19 08/03/19 atorvastatin 40 mg PO HS 05/20/19 08/03/19 buspirone 7.5 mg PO DAILY 05/20/19 08/03/19 cholecalciferol (vitamin D3) 1,000 unit PO DAILY 05/20/19 08/03/19 clopidogrel 75 mg PO DAILY 05/20/19 08/03/19 dicyclomine 20 mg PO DAILY PRN 05/20/19 08/03/19 ferrous sulfate 325 mg PO DAILY 05/20/19 08/03/19 hydralazine 25 mg PO TID 05/20/19 08/03/19 insulin lispro [Humalog KwikPen 15 unit SUBCUT AC 05/20/19 08/03/19 Insulin] isosorbide dinitrate 30 mg PO BID 05/20/19 08/03/19 metoprolol succinate 25 mg PO DAILY 05/20/19 08/03/19 nitroglycerin [Nitrostat] 0.4 mg SUBLINGUAL Q5M PRN 05/20/19 08/03/19 paroxetine HCl [Paxil] 20 mg PO BID 05/20/19 08/03/19 Albuterol-Ipatropium 3 ml INHALATION 4-6XD PRN #60 each 05/26/19 08/03/19 furosemide 40 mg PO BID@0830,1600 #10 tab 05/26/19 08/03/19 insulin glargine 50 unit SUBCUT HS #0 ml 05/26/19 08/03/19 Novolog U-100 Insulin aspart See Rx Instructions .ROUTE 07/13/19 08/03/19 .COMPLEX PRN pantoprazole 40 mg PO BID@0730,2000 #60 tab 07/20/19 08/03/19 acetaminophen [Tylenol] 650 mg PO Q6H #0 tab 07/24/19 08/03/19 doxycycline hyclate 100 mg PO BID #6 cap 07/24/19 08/03/19 gabapentin 200 mg PO TID #180 cap 07/24/19 08/03/19 prednisone See Rx Instructions .ROUTE 07/24/19 08/03/19 .COMPLEX #7 tab Previous Rx's Medication Instructions Recorded Albuterol-Ipatropium 3 ml INHALATION 4-6XD PRN #60 each 09/23/19 furosemide 40 mg PO BID@0830,1600 #10 tab 05/26/19 insulin glargine 50 unit SUBCUT HS #0 ml 05/26/19 pantoprazole 40 mg PO BID@0730,2000 #60 tab 07/20/19 acetaminophen [Tylenol] 650 mg PO Q6H #0 tab 07/24/19 doxycycline hyclate 100 mg PO BID #6 cap 07/24/19 gabapentin 200 mg PO TID #180 cap 07/24/19 prednisone See Rx Instructions .ROUTE 07/24/19 .COMPLEX #7 tab Allergies Allergy/AdvReac Type Severity Reaction Status Date / Time Morphine AdvReac Severe Agitation Uncoded 08/03/19 20:57 General Stated Complaint: GenMedical JOSH: 3 Review of Systems All systems reviewed & are unremarkable except as noted in HPI and below Constitutional Constitutional: Reports as per HPI and Denies fever(s) Respiratory Respiratory: Reports cough PFSH Medical History CAD (coronary artery disease) (Chronic) Carotid stenosis (Acute) s/p bilateral CEA Chronic diastolic CHF (congestive heart failure) (Chronic) Chronic low back pain (Acute) CKD (chronic kidney disease) (Acute) COPD (chronic obstructive pulmonary disease) (Chronic) Depression with anxiety (Acute) Diabetes mellitus (Chronic) 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 mellitus (Acute) Diverticulitis (Chronic) GERD (gastroesophageal reflux disease) (Chronic) History of pulmonary embolism (Acute) Hyperlipidemia (Acute) Hypertension (Chronic) Hypothyroidism (Chronic) Obesity (BMI 30.0-34.9) (Chronic) DANYELLE (obstructive sleep apnea) (Chronic) Paroxysmal atrial fibrillation (Acute) Peripheral vascular disease (Chronic) Rheumatoid arthritis (Chronic) Surgical History H/O cardiac catheterization (Chronic) [address] History of left-sided carotid endarterectomy (Acute) History of right-sided carotid endarterectomy (Acute) S/P arterial stent (Acute) leg x2 S/P arteriovenous (AV) fistula creation (Acute) [facility] in [place] Family History Other Diabetes Heart disease Social History Smoking/Tobacco Use Status: Former Tobacco Use Alcohol Intake: never Drug use: Never Substance use type: does not use Household members: children Housing: house Number of Children: 3 current occupation: Retired; attends [employer] during the day Seatbelt use: always Do you feel safe at home: Yes Do you feel safe in your relationship?: Yes Exam Const General: cooperative and no acute distress HENMT Head: normocephalic Mouth: moist mucous membranes Eyes Conjunctivae: normal conjunctivae Sclera: normal sclerae Neck Neck: trachea midline, supple and no JVD Resp Effort & Inspection: tachypneic Auscultation: no rales, no rhonchi and wheezes expiratory wheezes Cardio Jugular venous pressure: no JVD Rate: regular rate and not tachycardic Rhythm: regular rhythm GI Palpation: soft, not firm, no guarding, no masses, not rigid and nontender Skin General skin exam: no rashes or lesions noted Neuro General: alert, awake and tone normal Motor: other (Intermittent severe tremor versus focal seizure of right upper extremity) Extrem General: no calf tenderness and no edema Psych Appearance: grossly normal Course Vital Signs Vital signs: Vital Signs Temperature 36.7 C 07/13/19 11:03 Pulse 68 07/13/19 11:03 Respiratory Rate 25 H 07/13/19 11:03 Pulse Oximetry 87 L 07/13/19 11:03 Temperature 36.7 C 07/13/19 11:03 Temperature Source Temporal Artery Scan 07/13/19 11:03 Pulse 68 07/13/19 11:03 Respiratory Rate 25 H 07/13/19 11:03 Respiratory Effort 07/13/19 11:09 Blood Pressure Position Sitting 07/13/19 11:03 Pulse Oximetry 87 L 07/13/19 11:03 Oxygen Delivery Method Room Air 07/13/19 11:03 Oxygen Flow Rate 0 07/13/19 11:03 Pain Level 0 07/13/19 11:03 Comment 07/13/19 11:03 Lab/Test Results Lab/Test Results: 07/13/19 11:37 Blood Blood Culture - Pending 07/13/19 11:37 Blood Blood Culture - Pending
[2019-07-13] MEDS: Albuterol/Ipratropium 3 ML UPD VIAL UPD ×2 (11:50→14:00)
[2019-07-13] MEDS: methylPREDNISolone SUCC 125 MG VIAL IVP (12:13)
[2019-07-13] MEDS: Normal Saline 1,000 ML 150 ML IV ×2 (12:13→22:33)
--- NOTE | 2019-07-13 12:40 | NUR.NOTE ---
lab bedside collecting blood cultures. Nursing Note:
[2019-07-13 12:54] LABS: Abs Immature Grans 0.07 k/cumm (0.0-0.09); Absolute Basophil Count 0.08 k/cumm (0.0-0.2); Absolute Eosinophil Count 0.62 k/cumm (0.0-0.7); Absolute Lymphocyte Count 1.56 k/cumm (1.2-3.4); Absolute Neutrophil Count 6.67 k/cumm (1.2-6.7); Basophils % 0.8; Eosinophils % 6.3; HCT 36.4 % (36.0-46.0); HGB 10.7 g/dL (12.0-15.5); Immature Grans % 0.7; Lymphocytes % 15.9; Mean Corp. HGB Concentration 29.4 g/dL (32.0-36.0); Mean Corpuscular Hemoglobin 24.8 pg (27.0-33.0); Mean Corpuscular Volume 84.5 fL (80-95); Mean Platelet Volume 10.5 fL (8.0-11.0); Monocytes % 8.2; Neutrophils % 68.1; Platelet Count 275 x1000/uL (130-400); RBC 4.31 m/cumm (4.00-5.20)
[2019-07-13 13:10] LABS: ALT 20 U/L (14-59); AST 18 U/L (15-37); Albumin 3.2 g/dL (3.4-5.0); Alkaline Phosphatase 98 U/L (46-116); Anion Gap 6.7 mmol/L (3-11); BUN 49 mg/dL (7-18); Bilirubin, Total 0.3 mg/dL (0.2-1.0); CO2 33.3 mmol/L (21.0-32.0); CREATININE 1.93 mg/dL (0.55-1.02); Calcium 8.9 mg/dL (8.5-10.1); Chloride 103 mmol/L (98-107); Estimated GFR 25.17 (mL/min/1.73m2); Glucose 252 mg/dL (70-100); NT-proBNP 570 pg/mL; Sodium 143 mmol/L (136-145); Total Protein 8.2 g/dL (6.4-8.2)
[2019-07-13 13:17] LABS: Troponin I < 0.05 ng/mL (0.00-0.06)
--- NOTE | 2019-07-13 13:23 | DI.RAD_ITS ---
EXAM: XR CHEST 2V PA LATERAL INDICATION: cough. COMPARISON: XR CHEST 2V PA LATERAL from 06/11/2019 TECHNIQUE: 2D digital imaging was performed. FINDINGS: The heart size is within normal limits and stable. Pulmonary vasculature is unremarkable. No focal consolidating infiltrates are present. No effusions or pneumothoraces are present. Stable chronic interstitial findings are present. These likely reflect fibrosis. Degenerative changes are seen in the spine. IMPRESSION: No acute pulmonary process.
--- NOTE | 2019-07-13 14:22 | DI.VRAD_ITS ---
PROCEDURE INFORMATION: Exam: XR Chest, 2 Views Exam date and time: 07/13/2019 1:24 PM Clinical history: 79 years old, female; Cough TECHNIQUE: Imaging protocol: XR of the chest Views: 2 views. COMPARISON: CR XR CHEST 2V PA LATERAL 06/11/2019 10:16 PM FINDINGS: Lungs: Interstitial lung scarring unchanged. No new focal pulmonary consolidation. Pleural space: No pleural effusion. No pneumothorax. Heart/Mediastinum: No significant cardiomegaly. Bones/joints: Bony structures stable. IMPRESSION: No definite evidence of acute cardiopulmonary disease. Dictated and Authenticated by: Vince Carolina MD. Ordering:NAZARIO Rodriguez MD
[2019-07-13] MEDS: Doxycycline Hyclate 100 MG CAP PO ×2 (14:31→19:58)
--- NOTE | 2019-07-13 14:44 | NUR.NOTE ---
pt ambulated to restroom, refusing wheelchair, refusing oxygen and refusing bedside commode/bed pain. pt tolerated ambulation well, denies any SOA with ambulation, no distress noted. on return to room, pt sao2 is 88%. no SOA voiced or noted. oxygen resumed at 2L/NC with sao2 increasing to 96%. pt educated on importance of ambulating with oxygen, energy conservation and educated on side effects of hypoxemia with verbal understanding. Nursing Note:
--- NOTE | 2019-07-13 15:33 | HPE_ITS ---
Date of service: 07/13/19 Time of Service: 15:33 Assessment and Plan Assessment and plan (1) Obstructive chronic bronchitis with exacerbation: Start date: 07/13/19 Start time: 16:21 Status: Acute Assessment and plan: Four day cough with increasing SOB with sputum changes. Patient has history of COPD. No white count or fevers. Likely exacerbation of COPD with underlying bronchitis. Requiring oxygen at this time. Treat with doxy BID for bronchitis Sputum culture pending Blood cultures pending. CXR- no cardiopulmonary process Steroids, duonebs, cpap/bipap prn (2) COPD with acute exacerbation: Start date: 07/13/19 Start time: 16:25 Status: Inactive Assessment and plan: In likely setting of underlying bronchitis. See samia goins. (3) Paroxysmal atrial fibrillation: Start date: 07/13/19 Start time: 16:25 Status: Acute Assessment and plan: Regular rate and rhythm at this time. Continue Apixaban (4) Stroke due to embolism: Start date: 07/13/19 Start time: 16:29 Status: Acute Assessment and plan: Hx of CVA continue apixaban. (5) Functional tremor: Start date: 07/13/19 Start time: 16:30 Status: Acute Assessment and plan: Right hand tremor, not controlled by patient seen by neurology for tremor. Family requesting new neurologist. (6) Chronic diastolic CHF (congestive heart failure): Start date: 07/13/19 Start time: 16:32 Status: Chronic Assessment and plan: Not exacerbated at this time. Monitor for symptoms of exacerbation. Continue lasix (7) CKD (chronic kidney disease): Start date: 07/13/19 Start time: 16:33 Status: Acute Assessment and plan: BUN and creatinine elevated but stable for patient at this time. Above case was discussed with Dr. Lopez who is in agreement. History of Present Illness History of Present Illness Chief Complaint: COPD exacerbation Narrative: 79 y.o female with PMH CAD, Afib, CVA, COPD, Carotid stenosis, CHF, DM, Hypothyroidism, CKD presenting to [facility] ED for a worsening cough and SOB. A month ago she was hospitalized for pneumonia. Upon presentation to the ED she was hypoxic and tachypenic with saturation in the 80's. placed on oxygen with saturation increasing to the 90's. Labs from the ED reviewed no white count, BUN and creatinine elevated but stable for patient, BNP slightly elevated however in the setting of COPD this is not alarming. She is afebrile. Imaging reveals no cardiopulmonary disease. Patient was recently traveling returning last night and cough worsened since Sunday with increasing SOB. She is being admitted to /S for further management. Due to sputum changes doxy was started, sputum ordered. She will be on steroids, duonebs, and bipap/cpap if needed. At this time she is requiring 1 liter of oxygen, LS with expiratory wheeze to RLL. She denies CP, N/V/D last BM this am. Review of Systems All systems reviewed & are unremarkable except as noted in HPI and below PFS Medical History CAD (coronary artery disease) (Chronic) Carotid stenosis (Acute) s/p bilateral CEA Chronic diastolic CHF (congestive heart failure) (Chronic) Chronic low back pain (Acute) CKD (chronic kidney disease) (Acute) COPD (chronic obstructive pulmonary disease) (Chronic) Depression with anxiety (Acute) Diabetes mellitus (Chronic) 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 mellitus (Acute) Diverticulitis (Chronic) GERD (gastroesophageal reflux disease) (Chronic) History of pulmonary embolism (Acute) Hyperlipidemia (Acute) Hypertension (Chronic) Hypothyroidism (Chronic) Obesity (BMI 30.0-34.9) (Chronic) DANYELLE (obstructive sleep apnea) (Chronic) Paroxysmal atrial fibrillation (Acute) Peripheral vascular disease (Chronic) Rheumatoid arthritis (Chronic) Surgical History H/O cardiac catheterization (Chronic) [address] History of left-sided carotid endarterectomy (Acute) History of right-sided carotid endarterectomy (Acute) S/P arterial stent (Acute) leg x2 S/P arteriovenous (AV) fistula creation (Acute) [facility] in [place] Family History Other Diabetes Heart disease Social History Smoking/Tobacco Use Status: Former Tobacco Use Alcohol Intake: never Drug use: Never Substance use type: does not use Household members: children Housing: house Number of Children: 3 current occupation: Retired; attends [employer] during the day Seatbelt use: always Do you feel safe at home: Yes Do you feel safe in your relationship?: Yes Meds Home Medications and Allergies Home Medications Medication Instructions Recorded Confirmed Type amlodipine [Norvasc] 2.5 mg PO DAILY 05/20/19 07/13/19 History apixaban 2.5 mg PO BID 05/20/19 07/13/19 History atorvastatin 40 mg PO HS 05/20/19 07/13/19 History buspirone 7.5 mg PO DAILY 05/20/19 07/13/19 History cholecalciferol (vitamin D3) 1,000 unit PO DAILY 05/20/19 07/13/19 History clopidogrel 75 mg PO DAILY 05/20/19 07/13/19 History dicyclomine 20 mg PO DAILY PRN 05/20/19 07/13/19 History ferrous sulfate 325 mg PO DAILY 05/20/19 07/13/19 History gabapentin 900 mg PO TID 05/20/19 07/13/19 History hydralazine 25 mg PO TID 05/20/19 07/13/19 History insulin lispro [Humalog KwikPen 15 unit SUBCUT AC 05/20/19 07/13/19 History Insulin] isosorbide dinitrate 30 mg PO BID 05/20/19 07/13/19 History metoprolol succinate 25 mg PO DAILY 05/20/19 07/13/19 History nitroglycerin [Nitrostat] 0.4 mg SUBLINGUAL Q5M PRN 05/20/19 07/13/19 History pantoprazole [Protonix] 40 mg PO DAILY AM 05/20/19 07/13/19 History paroxetine HCl [Paxil] 20 mg PO DAILY 05/20/19 07/13/19 History Albuterol-Ipatropium 3 ml INHALATION 4-6XD PRN #60 each 05/26/19 07/13/19 Rx Lantus Solostar U-100 Insulin 70 units SUBCUT DAILY@0800 #0 ml 05/26/19 07/13/19 Rx furosemide 40 mg PO BID@0830,1600 #10 tab 05/26/19 07/13/19 Rx insulin glargine 50 unit SUBCUT HS #0 ml 05/26/19 07/13/19 Rx insulin aspart U-100 [Novolog See Rx Instructions .ROUTE 07/13/19 07/13/19 History U-100 Insulin aspart] .COMPLEX PRN Allergies Allergy/AdvReac Type Severity Reaction Status Date / Time Morphine AdvReac Severe Agitation Uncoded 07/13/19 11:21 Exam Const General: cooperative, comfortable and no acute distress HENMT Head: normal to inspection Face and sinus: normal facial exam Eyes General: appearance normal, both eyes and all related structures Pupils: PERRL EOM: EOM intact bilaterally Neck Carotids: normal carotid upstroke Lymphatic: no lymphadenopathy noted and no lymphedema noted Chest Chest: normal inspection of the chest Resp Effort & Inspection: abnormal respiratory pattern and cough Quality of cough: productive Auscultation: wheezes expiratory wheezes and right lower Cardio Jugular venous pressure: no JVD Rate: regular rate Rhythm: regular rhythm Heart Sounds: S1 normal and S2 normal GI Inspection: distended Palpation: firm Auscultation: normal bowel sounds General: deferred Back/Spine/Pelvis Back: no CVA tenderness Thoracic/Lumbar Spine: thoracic and lumbar spine normal to inspection Skin General skin exam: no rashes or lesions noted Neuro General: alert, awake and oriented x3 Speech: speech normal Extrem General: normal to inspection Psych Mental Status: mental status grossly normal Affect: normal affect Attitude: cooperative Results Labs Result diagrams: 07/13/19 12:30 07/13/19 12:30 Labs: Laboratory Results - last 24 hr 07/13/19 07/13/19 07/13/19 12:10 12:10 12:10 WBC Cancelled RBC Cancelled Hgb Cancelled Hct Cancelled MCV Cancelled MCH Cancelled MCHC Cancelled RDW Cancelled Plt Count Cancelled MPV Cancelled Abs Immat Gran (auto) Cancelled Immature Gran % Cancelled Neutrophils % Cancelled Band Neutrophils % Cancelled Lymphocytes % Cancelled Atypical Lymphs % Cancelled Monocytes % Cancelled Eosinophils % Cancelled Basophils % Cancelled Metamyelocytes % Cancelled Myelocytes % Cancelled Promyelocytes % Cancelled Absolute Neutrophils Cancelled Absolute Lymphocytes Cancelled Absolute Monocytes Cancelled Absolute Eosinophils Cancelled Absolute Basophils Cancelled Nucleated RBCs Cancelled Differential Comment Cancelled Other Cell Type Cancelled RBC Morphology Cancelled Polychromasia Cancelled Hypochromasia Cancelled Poikilocytosis Cancelled Basophilic Stippling Cancelled Anisocytosis Cancelled Microcytosis Cancelled Macrocytosis Cancelled Spherocytes Cancelled Target Cells Cancelled Tear Drop Cells Cancelled Ovalocytes Cancelled Stomatocytes Cancelled [place] Bodies Cancelled Meena Cells Cancelled Acanthocytes (Spur) Cancelled Schistocytes Cancelled Sodium Cancelled Potassium Cancelled Chloride Cancelled Carbon Dioxide Cancelled Anion Gap Cancelled BUN Cancelled Creatinine Cancelled Estimated GFR/1.73 m2 Cancelled Glucose Cancelled Calcium Cancelled Total Bilirubin Cancelled AST Cancelled ALT Cancelled Alkaline Phosphatase Cancelled Troponin I Cancelled NT-Pro-B Natriuret Pep Cancelled Total Protein Cancelled Albumin Cancelled 07/13/19 07/13/19 12:30 12:30 WBC 9.80 RBC 4.31 Hgb 10.7 L Hct 36.4 MCV 84.5 MCH 24.8 L MCHC 29.4 L RDW 18.0 H Plt Count 275 MPV 10.5 Abs Immat Gran (auto) Immature Gran % 0.7 Neutrophils % 68.1 Band Neutrophils % Lymphocytes % 15.9 Atypical Lymphs % Monocytes % 8.2 Eosinophils % 6.3 Basophils % 0.8 Metamyelocytes % Myelocytes % Promyelocytes % Absolute Neutrophils 6.67 Absolute Lymphocytes 1.56 Absolute Monocytes 0.80 H Absolute Eosinophils 0.62 Absolute Basophils 0.08 Nucleated RBCs Differential Comment Other Cell Type RBC Morphology Polychromasia Hypochromasia Poikilocytosis Basophilic Stippling Anisocytosis Microcytosis Macrocytosis Spherocytes Target Cells Tear Drop Cells Ovalocytes Stomatocytes [place] Bodies Meena Cells Acanthocytes (Spur) Schistocytes Sodium 143 Potassium 4.0 Chloride 103 Carbon Dioxide 33.3 H Anion Gap 6.7 BUN 49 H Creatinine 1.93 H Estimated GFR/1.73 m2 25.17 Glucose 252 H Calcium 8.9 Total Bilirubin 0.3 AST 18 ALT 20 Alkaline Phosphatase 98 Troponin I < 0.05 NT-Pro-B Natriuret Pep 570 H Total Protein 8.2 Albumin 3.2 L Last Vital Signs Temp 36.7 C 07/13/19 11:03 Pulse 72 07/13/19 14:30 Resp 18 07/13/19 14:00 BP 127/39 L 07/13/19 14:30 Pulse Ox 92 L 07/13/19 14:26
[2019-07-13] MEDS: Isosorbide Dinitrate 10 MG TAB 30 MG PO (16:39)
[2019-07-13] MEDS: Furosemide 40 MG TAB PO (16:39)
--- NOTE | 2019-07-13 18:13 | NUR.NOTE ---
Nursing Note: Patient s home dose of aspart was noted to be missing from the mar, this was brought to the attention of the ccc, awaiting orders
[2019-07-13] MEDS: Gabapentin 300 MG CAP 900 MG PO (19:57)
[2019-07-13] MEDS: hydrALAZINE 25 MG TAB PO (19:58)
[2019-07-13] MEDS: Apixaban 2.5 MG TAB PO (19:58)
[2019-07-13 21:33] LABS: Glucose 399 mg/dL (70-100)
[2019-07-13] MEDS: Normal Saline Flush 10 ML SYR IVP (21:37)
[2019-07-13] MEDS: Atorvastatin 40 MG TAB PO (22:26)
[2019-07-13] MEDS: Insulin Glargine 100 UNITS/ML UNIT 50 UNITS SC (22:31)
[2019-07-13] MEDS: Insulin Aspart 300 UNITS/3 ML PEN SC (22:32)
[2019-07-14 00:06] VITALS: BP 138/47; PULSE 84; RESP 18; TEMP 36.5; O2SAT 98
[2019-07-14 03:58] VITALS: BP 154/64; PULSE 83; RESP 18; TEMP 36.1; O2SAT 95
[2019-07-14] MEDS: Normal Saline 1,000 ML 150 ML IV (05:22)
[2019-07-14 07:30] VITALS: BP 159/76; PULSE 77; RESP 24; TEMP 36.6; O2SAT 96
[2019-07-14 07:33] LABS: Abs Immature Grans 0.12 k/cumm (0.0-0.09); Absolute Basophil Count 0.01 k/cumm (0.0-0.2); Absolute Eosinophil Count 0.01 k/cumm (0.0-0.7); Absolute Lymphocyte Count 1.21 k/cumm (1.2-3.4); Absolute Monocyte Count 0.73 k/cumm (0.11-0.7); Basophils % 0.1; Eosinophils % 0.1; HGB 9.2 g/dL (12.0-15.5); Immature Grans % 0.9; Lymphocytes % 8.8; Mean Corp. HGB Concentration 28.8 g/dL (32.0-36.0); Mean Corpuscular Hemoglobin 24.3 pg (27.0-33.0); Mean Corpuscular Volume 84.7 fL (80-95); Mean Platelet Volume 10.5 fL (8.0-11.0); Monocytes % 5.3; Neutrophils % 84.8; Platelet Count 275 x1000/uL (130-400); RBC 3.78 m/cumm (4.00-5.20); RBC Distribution Width 17.7 % (11.7-14.6); White Blood Cell Count 13.74 k/cumm (4.4-10.8)
[2019-07-14 07:37] LABS: Absolute Neutrophil Count 11.65 k/cumm (1.2-6.7)
[2019-07-14 07:54] LABS: Anion Gap 8.7 mmol/L (3-11); BUN 52 mg/dL (7-18); CO2 29.3 mmol/L (21.0-32.0); CREATININE 1.83 mg/dL (0.55-1.02); Calcium 8.8 mg/dL (8.5-10.1); Chloride 104 mmol/L (98-107); Diff Comment RBC Morph Reviewed; Estimated GFR 26.77 (mL/min/1.73m2); Glucose 309 mg/dL (70-100); Magnesium 1.5 mg/dL (1.8-2.4); Potassium 4.5 mmol/L (3.5-5.1); Sodium 142 mmol/L (136-145)
[2019-07-14 07:55] LABS: Anisocytosis 2+; Hypochromasia 2+; Microcytosis 2+; Polychromasia Present
[2019-07-14] MEDS: Normal Saline Flush 10 ML SYR IVP ×4 (08:16→17:41)
[2019-07-14] MEDS: Insulin Glargine 300 UNITS/3 ML PEN 70 UNITS SC (08:17)
[2019-07-14] MEDS: Insulin Aspart 300 UNITS/3 ML PEN SC ×4 (08:18→21:02)
[2019-07-14] MEDS: Gabapentin 300 MG CAP 900 MG PO ×3 (08:19→20:19)
[2019-07-14] MEDS: Doxycycline Hyclate 100 MG CAP PO ×2 (08:19→20:19)
[2019-07-14] MEDS: Cholecalciferol (Vitamin D3) 1,000 UNIT TAB 1000 UNITS PO (08:19)
[2019-07-14] MEDS: Apixaban 2.5 MG TAB PO ×2 (08:19→20:20)
[2019-07-14] MEDS: Metoprolol CR 25 MG TABCR PO (08:19)
[2019-07-14] MEDS: Furosemide 40 MG TAB PO ×2 (08:19→17:00)
[2019-07-14] MEDS: Pantoprazole 40 MG TABCR PO (08:19)
[2019-07-14] MEDS: busPIRone 5 MG TAB 7.5 MG PO (08:20)
[2019-07-14] MEDS: Clopidogrel 75 MG TAB PO (08:20)
[2019-07-14] MEDS: amLODIPine 2.5 MG TAB PO (08:20)
[2019-07-14] MEDS: hydrALAZINE 25 MG TAB PO ×3 (08:20→20:19)
[2019-07-14] MEDS: Ferrous Sulfate 325 MG TAB PO (08:20)
[2019-07-14] MEDS: Isosorbide Dinitrate 10 MG TAB 30 MG PO ×2 (08:20→17:00)
[2019-07-14] MEDS: methylPREDNISolone SUCC 40 MG VIAL IVP ×2 (09:44→17:40)
[2019-07-14] MEDS: MAGNESIUM SULFATE 4 GM/100 ML BAG IVPB (09:45)
[2019-07-14] MEDS: PARoxetine 20 MG TAB PO (09:45)
[2019-07-14] MEDS: Furosemide 20 MG/2 ML VIAL IVP (11:01)
--- NOTE | 2019-07-14 11:53 | PHARADMIT ---
Addendum entered by Jovon Chan III 07/17/19 12:23: Pharmacy Note Subjective SOB improved but experience Heart pain (relieved by ISDN). MD to try some fluid repletion to help kidneys. Objective VS-OK Pain:04/12 SCr-2.14 BUN-90,CrCl- 17mL/min, WBC-16.76 Assessment Apixaban continues for stroke prevention Plan No new MD notes yet today. Original Note: Admission Pharmacy Clinical Review COPD exacerbation Code Status DNR/DNI Current Weight 84.6 kg Renally Cleared and Narrow Therapeutic Index Meds Crcl ~26 mL/min using adjusted body weight gabapentin- recommended 200-700 mg once daily for Crcl 15-29 mL/min, MD aware and wants to continue pt's home dose as renal function is within pt's baseline QTc Value / Action Taken QTc 469 BP Control, Fever BP-159/76 afebrile Electrolytes reviewed mag 1.5 replacement given DVT Prophylaxis pt is on apixaban Opiate Usage / Scheduled Bowel Regimen Ordered no/prn Plt/SCr for Heparin / Enoxaparin plt 275 SCr 1.83 INR for Warfarin n/a H/H stable, WBC/Bands h/h 9.2/32.0 WBC 13.74 Antibiotic appropriateness PO doxycycline for bronchitis Cultures and Sensitivities blood cultures pending sputum culture growing normal kurt rapid flu negative Surgical ABX d/c within 24 hr n/a DM control / Insulin Dosing BG 309 scheduled glargine BID and sliding scale aspart Heart Failure (Check EF%) (JENNIFER's, B-Block, Diuretics) amlodipine, furosemide, metoprolol IV to PO Switch n/a Home Meds Reviewed -ipratropium may enhance the anticholinergic effect of dicyclomine, avoid use of multiple anticholinergic meds or watch for related toxicities -clopidogrel may enhance the adverse/toxic effects of apixaban (increased bleeding risk, consider risk/benefit and watch for adverse effects if used in combination). Home Meds Not Ordered insulin lispro (has aspart sliding scale ordered) Comments extra dose of lasix given today watch I+Os and weight
--- NOTE | 2019-07-14 12:36 | W.PM.PROGNOT ---
Date of Service Date of service: 07/14/19 Time of Service: 12:37 Assessment and Plan Assessment and plan (1) Obstructive chronic bronchitis with exacerbation: Start date: 07/14/19 Start time: 12:39 Status: Acute Assessment and plan: Doing the same. Sputum culture with gram positive cocci pairs, on doxy, afebrile. WBC elevated likely due to steroids. IVF dcd. Blood cultures pending. (2) COPD with acute exacerbation: Start date: 07/14/19 Start time: 12:41 Status: Inactive Assessment and plan: In likely setting of underlying bronchitis. See above. Requiring one liter of oxygen at this time. Continue to treat with steroids, nebs, antbx (3) Paroxysmal atrial fibrillation: Start date: 07/14/19 Start time: 12:42 Status: Acute Assessment and plan: Regular rate and rhythm at this time. Continue Apixaban (4) Stroke due to embolism: Start date: 07/14/19 Start time: 12:42 Status: Acute Assessment and plan: Hx of CVA continue apixaban. (5) Functional tremor: Start date: 07/14/19 Start time: 12:42 Status: Acute Assessment and plan: Right hand tremor, not controlled by patient seen by neurology for tremor. (6) Chronic diastolic CHF (congestive heart failure): Start date: 07/14/19 Start time: 12:42 Status: Chronic Assessment and plan: Not exacerbated at this time. Monitor for symptoms of exacerbation. Continue lasix (7) CKD (chronic kidney disease): Start date: 07/14/19 Start time: 12:43 Status: Acute Assessment and plan: BUN and creatinine elevated but improved this am. Patient baseline bun creatinine as low as 1.3 and as high as 2.12 with average 1.8 Above case was discussed with Dr. Lopez who is in agreement. Subjective Subjective Patient reports: no new complaints Interval history since last seen: Patient lying in bed looking more tired today, states she feels ok. Crackles to bilateral bases. IVF dcd, lasix IVP 20 mg given. She denies CP, SOB, N/v/d Exam Const General: cooperative, comfortable and no acute distress HENMT Head: normal to inspection Face and sinus: normal facial exam Eyes General: appearance normal, both eyes and all related structures Pupils: PERRL EOM: EOM intact bilaterally Neck Carotids: normal carotid upstroke Lymphatic: no lymphadenopathy noted and no lymphedema noted Chest Chest: normal inspection of the chest Resp Effort & Inspection: abnormal respiratory pattern and cough Quality of cough: productive Auscultation: crackles bilaterally Cardio Jugular venous pressure: no JVD Rate: regular rate Rhythm: regular rhythm Heart Sounds: S1 normal and S2 normal GI Inspection: distended Palpation: firm Auscultation: normal bowel sounds General: deferred Back/Spine/Pelvis Back: no CVA tenderness Thoracic/Lumbar Spine: thoracic and lumbar spine normal to inspection Skin General skin exam: no rashes or lesions noted Neuro General: alert, awake and oriented x3 Speech: speech normal Extrem General: normal to inspection Psych Mental Status: mental status grossly normal Affect: normal affect Attitude: cooperative Objective Objective Clinical Data: Abnormal lab results 07/13/19 07/13/19 07/13/19 Range/Units 12:30 12:30 21:17 WBC (4.4-10.8) k/cumm RBC (4.00-5.20) m/cumm Hgb 10.7 L (12.0-15.5) g/dL Hct (36.0-46.0) % MCH 24.8 L (27.0-33.0) pg MCHC 29.4 L (32.0-36.0) g/dL RDW 18.0 H (11.7-14.6) % Absolute Neutrophils (1.2-6.7) k/cumm Absolute Monocytes 0.80 H (0.11-0.7) k/cumm Carbon Dioxide 33.3 H (21.0-32.0) mmol/L BUN 49 H (7-18) mg/dL Creatinine 1.93 H (0.55-1.02) mg/dL Glucose 252 H 399 H D (70-100) mg/dL Magnesium (1.8-2.4) mg/dL NT-Pro-B Natriuret Pep 570 H ( - 299) pg/mL Albumin 3.2 L (3.4-5.0) g/dL 07/14/19 07/14/19 Range/Units 06:47 06:47 WBC 13.74 H D (4.4-10.8) k/cumm RBC 3.78 L (4.00-5.20) m/cumm Hgb 9.2 L (12.0-15.5) g/dL Hct 32.0 L (36.0-46.0) % MCH 24.3 L (27.0-33.0) pg MCHC 28.8 L (32.0-36.0) g/dL RDW 17.7 H (11.7-14.6) % Absolute Neutrophils 11.65 H (1.2-6.7) k/cumm Absolute Monocytes 0.73 H (0.11-0.7) k/cumm Carbon Dioxide (21.0-32.0) mmol/L BUN 52 H (7-18) mg/dL Creatinine 1.83 H (0.55-1.02) mg/dL Glucose 309 H (70-100) mg/dL Magnesium 1.5 L (1.8-2.4) mg/dL NT-Pro-B Natriuret Pep ( - 299) pg/mL Albumin (3.4-5.0) g/dL Vital Signs Temperature 36.6 C 07/14/19 07:30 Temperature Source Tympanic 07/14/19 07:30 Pulse 77 07/14/19 07:30 Pulse Rhythm Regular 07/14/19 03:51 Pulse 69 07/13/19 13:30 Respiratory Rate 24 07/14/19 07:30 Respiratory Effort Non-Labored 07/14/19 03:51 Respiratory Depth Normal 07/14/19 03:51 Respiratory Pattern Normal 07/14/19 03:51 Blood Pressure 159/76 H 07/14/19 07:30 Blood Pressure Mean 61 07/13/19 15:30 Blood Pressure Position Sitting 07/13/19 11:03 Pulse Oximetry 96 07/14/19 07:30 Oxygen Delivery Method Nasal Cannula 07/14/19 07:30 Oxygen Flow Rate 1 07/14/19 07:30 Pain Level 0 07/14/19 07:30 Comment 07/14/19 07:30 Intake & Output 07/13/19 07/14/19 07/14/19 23:59 11:59 23:59 Intake Total 1250 / 1250 1000 / 1000 Output Total 900 / 900 1000 / 1000 Balance 350 / 350 0 / 0 Weight 85.4 kg 84.6 kg Intake: IV 1010 / 1010 1000 / 1000 Oral 240 / 240 Output: Urine 900 / 900 1000 / 1000 Other: Urine Color Yellow Yellow Urine Appearance Clear Clear Urine Odor Normal Voiding Methods Bedside Commode Laboratory Results WBC 13.74 k/cumm (4.4-10.8) H D 07/14/19 06:47 RBC 3.78 m/cumm (4.00-5.20) L 07/14/19 06:47 Hgb 9.2 g/dL (12.0-15.5) L 07/14/19 06:47 Hct 32.0 % (36.0-46.0) L 07/14/19 06:47 MCV 84.7 fL (80-95) 07/14/19 06:47 MCH 24.3 pg (27.0-33.0) L 07/14/19 06:47 MCHC 28.8 g/dL (32.0-36.0) L 07/14/19 06:47 RDW 17.7 % (11.7-14.6) H 07/14/19 06:47 Plt Count 275 x1000/uL (130-400) 07/14/19 06:47 MPV 10.5 fL (8.0-11.0) 07/14/19 06:47 Abs Immat Gran (auto) Cancelled 07/13/19 12:10 Immature Gran % 0.9 07/14/19 06:47 Neutrophils % 84.8 07/14/19 06:47 Band Neutrophils % Cancelled 07/13/19 12:10 Lymphocytes % 8.8 07/14/19 06:47 Atypical Lymphs % Cancelled 07/13/19 12:10 Monocytes % 5.3 07/14/19 06:47 Eosinophils % 0.1 07/14/19 06:47 Basophils % 0.1 07/14/19 06:47 Metamyelocytes % Cancelled 07/13/19 12:10 Myelocytes % Cancelled 07/13/19 12:10 Promyelocytes % Cancelled 07/13/19 12:10 Absolute Neutrophils 11.65 k/cumm (1.2-6.7) H 07/14/19 06:47 Absolute Lymphocytes 1.21 k/cumm (1.2-3.4) 07/14/19 06:47 Absolute Monocytes 0.73 k/cumm (0.11-0.7) H 07/14/19 06:47 Absolute Eosinophils 0.01 k/cumm (0.0-0.7) 07/14/19 06:47 Absolute Basophils 0.01 k/cumm (0.0-0.2) 07/14/19 06:47 Nucleated RBCs Cancelled 07/13/19 12:10 Differential Comment Rbc morph reviewed 07/14/19 06:47 Other Cell Type Cancelled 07/13/19 12:10 RBC Morphology See below 07/14/19 06:47 Polychromasia Present 07/14/19 06:47 Hypochromasia 2+ 07/14/19 06:47 Poikilocytosis Cancelled 07/13/19 12:10 Basophilic Stippling Cancelled 07/13/19 12:10 Anisocytosis 2+ 07/14/19 06:47 Microcytosis 2+ 07/14/19 06:47 Macrocytosis Cancelled 07/13/19 12:10 Spherocytes Cancelled 07/13/19 12:10 Target Cells Cancelled 07/13/19 12:10 Tear Drop Cells Cancelled 07/13/19 12:10 Ovalocytes Cancelled 07/13/19 12:10 Stomatocytes Cancelled 07/13/19 12:10 [place] Bodies Cancelled 07/13/19 12:10 Meena Cells Cancelled 07/13/19 12:10 Acanthocytes (Spur) Cancelled 07/13/19 12:10 Schistocytes Cancelled 07/13/19 12:10 Sodium 142 mmol/L (136-145) 07/14/19 06:47 Potassium 4.5 mmol/L (3.5-5.1) 07/14/19 06:47 Chloride 104 mmol/L (98-107) 07/14/19 06:47 Carbon Dioxide 29.3 mmol/L (21.0-32.0) 07/14/19 06:47 Anion Gap 8.7 mmol/L (3-11) 07/14/19 06:47 BUN 52 mg/dL (7-18) H 07/14/19 06:47 Creatinine 1.83 mg/dL (0.55-1.02) H 07/14/19 06:47 Estimated GFR/1.73 m2 26.77 (mL/min/1.73m2) 07/14/19 06:47 Glucose 309 mg/dL (70-100) H 07/14/19 06:47 Calcium 8.8 mg/dL (8.5-10.1) 07/14/19 06:47 Magnesium 1.5 mg/dL (1.8-2.4) L 07/14/19 06:47 Total Bilirubin 0.3 mg/dL (0.2-1.0) 07/13/19 12:30 AST 18 U/L (15-37) 07/13/19 12:30 ALT 20 U/L (14-59) 07/13/19 12:30 Alkaline Phosphatase 98 U/L (46-116) 07/13/19 12:30 Troponin I < 0.05 ng/mL (0.00-0.06) 07/13/19 12:30 NT-Pro-B Natriuret Pep 570 pg/mL (-299) H 07/13/19 12:30 Total Protein 8.2 g/dL (6.4-8.2) 07/13/19 12:30 Albumin 3.2 g/dL (3.4-5.0) L 07/13/19 12:30
--- NOTE | 2019-07-14 12:53 | PDOC.CMIN ---
- If Service Date Differs Date of service: 07/14/19 Time of Service: 12:53 Care Management Initial Assess REASON FOR HOSPITALIZATION:: COPD PAST MEDICAL HISTORY/PAST SURGICAL HISTORY:: COPD, CHF, CAD, DVT, diabetes, hypothyroidism, hyperlipidemia, COPD, hypertension, TIA, HTN. Patient reports that she stopped smoking in 2000. Hx of eight coronary stents, bilateral stenting of lower extremities, right-sided carotid endarterectomy PREVIOUS FUNCTIONAL STATUS/SOCIAL/FAMILY SUPPORTS:: Karina relocated to [place] recently and is residing in [place], [place] with her daughter Fina. Her son Rizwan resides in [place]. She is mostly independent with personal ADLs and relies on Fina for additional needs in the home setting. Karina attends adult day services most days of the week. CURRENT FUNCTIONAL STATUS:: Karina is lying in bed when CM enters the room she is preparing for PT eval. Karina states there has been no changes since her last visit she continues to reside with her daughter. ADVANCE DIRECTIVES:: None on file Has patient been provided with information about the portal?: No Did the patient sign up for the portal?: No (Will review ) CODE STATUS:: DNR/DNI INSURANCE COVERAGE / FINANCIAL ISSUES:: Medicare and [employer] CURRENT HOME/COMMUNITY SERVICES/EQUIPMENT:: [facility] PRIMARY CARE PHYSICIAN:: Camilla Griffin POTENTIAL DISCHARGE NEEDS:: Follow up scheduled with primary care provider, resumption of adult day services. PATIENT/FAMILY EDUCATION NEEDS:: Discharge education, limitations and follow up plan of care including ask me three and self management. ANTICIPATED BARRIERS TO DISCHARGE:: None identified TRANSPORTATION:: [facility] private car wtih family at time of discharge. PLAN:: Karina will be discharged home when medically ready per provider. Home services and equipment to be determined. CM to continue to provide support discharged planning and disposition.
--- NOTE | 2019-07-14 12:56 | PT.INIE ---
Date of service: 07/14/19 Time of Service: 11:48 PT Notes Inpatient Physical Therapy Evaluation Date: 07/14/2019 Referring Doctor: Edelmira Oconnor NP PT Orders: PT CONSULT: Limited Ability Precautions: Fall. Standard. Activity as tolerated. Patient Profile/Admitting Diagnosis: Patient is a 79-year-old female with past medical history significant for left cardioembolic stroke admitted to the ED on 07/13/2019 with chief presentation of hypoxia and tachypnea. Patient is obstructive chronic bronchitis with exacerbation, chronic obstructive pulmonary disease exacerbation, paroxysmal atrial fibrillation, functional tremor, and chronic kidney disease. PMHX: Medical History CAD (coronary artery disease) (Chronic) Carotid stenosis (Acute) s/p bilateral CEA Chronic diastolic CHF (congestive heart failure) (Chronic) Chronic low back pain (Acute) CKD (chronic kidney disease) (Acute) COPD (chronic obstructive pulmonary disease) (Chronic) Depression with anxiety (Acute) Diabetes mellitus (Chronic) 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 mellitus (Acute) Diverticulitis (Chronic) GERD (gastroesophageal reflux disease) (Chronic) History of pulmonary embolism (Acute) Hyperlipidemia (Acute) Hypertension (Chronic) Hypothyroidism (Chronic) Obesity (BMI 30.0-34.9) (Chronic) DANYELLE (obstructive sleep apnea) (Chronic) Paroxysmal atrial fibrillation (Acute) Peripheral vascular disease (Chronic) Rheumatoid arthritis (Chronic) Surgical History H/O cardiac catheterization (Chronic) [address] History of left-sided carotid endarterectomy (Acute) History of right-sided carotid endarterectomy (Acute) S/P arterial stent (Acute) leg x2 S/P arteriovenous (AV) fistula creation (Acute) [facility] in [place] Social History/Home Situation: Patient lives with her daughter and her in a 1 floor house and [facility] without steps to enter. Her daughter works during the day and Ms. Bean goes to [employer] adult day[employer] 5 times a week. Equipment Owned/DME: She has a wheelchair, front wheeled walker, and cane but she does not use them. She did however travelled recently and used his wheelchair during that time. Subjective: Ms. Bean agreeable to a PT consult. She is denies pain and discomfort. She denies headache, dizziness, and lightheadedness throughout PT session. Objective: General Observation: Patient is seen laying supine in bed with HOB elevated. She has an IV in her R UE. 2 L/min of oxygen via nasal cannula. Mental Status: Alert and oriented x 4 Pain: 0/10 ROM: Right Upper Extremity: Shoulder Flexion WFL. Shoulder abduction WFL. Elbow flexion WFL. Wrist flexion WFL. Functional opening and closing of hand WFL. Left Upper Extremity: Shoulder Flexion WFL. Shoulder abduction WFL. Elbow flexion WFL. Wrist flexion WFL. Functional opening and closing of hand WFL. Right Lower Extremity: Hip flexion WFL. Hip abduction WFL. Knee flexion WFL. Ankle dorsiflexion WFL. Ankle plantarflexion WFL. Left Lower Extremity: Hip flexion WFL. Hip abduction WFL. Knee flexion WFL. Ankle dorsiflexion WFL. Ankle plantarflexion WFL. Strength: Right Upper Extremity: Shoulder flexors 4/5. Shoulder abductors 4/5. Elbow flexors 5/5. Elbow extensors 5/5. Polishing Machine Tender strong. Left Upper Extremity: Shoulder flexors 4/5. Shoulder abductors 4/5. Elbow flexors 5/5. Elbow extensors 5/5. Polishing Machine Tender strong. Right Lower Extremity: Hip flexors 4/5. Hip abductors 5/5. Knee flexors 5/5. Knee extensors 4/5. Ankle dorsiflexors 2-/5. Ankle plantarflexors 5/5. Left Lower Extremity: Hip flexors 4/5. Hip abductors 5/5. Knee flexors 5/5. Knee extensors 4/5. Ankle dorsiflexors 2-/5. Ankle plantarflexors 5/5. Bed Mobility/Transfers: Rolling SBA Supine to sit SBA Sit to supine SBA Sit to stand CGA Stand to sit CGA Bed to chair CGA Chair to bed CGA Gait: Patient ambulated 8 feet with FWW with CGA to from bedside to recliner. She exhibited reciprocal gait with no deviations from her normal pattern. Balance: Static Sitting: Normal Dynamic Sitting: Normal Static Standing: Normal Dynamic Standing: Fair Special Tests: Mobility Limitations Standardized Measure [facility]-P[facility] 6 clicks Basic Mobility Inpatient Short Form: Raw Score: 21 CMS Score: 26% deficit 4-stage Balance Test: Patient was able to tolerate feet together and semi-tandem. She is unable however to sustain full tandem and one-legged stance indicating a risk for falls. Informed Consent/Education: Patient instructed in purpose of PT consult and plan of care. Assessment:Patient is a 79-year-old female with past medical history significant for left cardioembolic stroke admitted to the ED on 07/13/2019 with chief presentation of hypoxia and tachypnea. Patient is obstructive chronic bronchitis with exacerbation, chronic obstructive pulmonary disease exacerbation, paroxysmal atrial fibrillation, functional tremor, and chronic kidney disease. She is cared for by her daughter, and attends organized activities during the day while her daughter is at work. She is motivated to return home with her daughter as previously. Her prognosis is good. Patient presents with clinical signs and symptoms consistent with current/admitting diagnoses that have resulted to mobility limitations, gait instability, generalized weakness, and impairment of motor control as demonstrated by the following impairment level findings: 1. Decreased strength to B LE major muscle groups 2. Impaired standing tolerance 3. Impaired activity tolerance Impairments are contributing to the following functional limitations: 1. Increase completion time for mobility ADL performance 2. Increased fall risk Patient is assessed as a 09558 moderate complexity based on the following: History: Patient was diagnosed with with HCAP, Laryngitis, coronary artery disease and chronic kidney disease. Examination: Demonstrable impairment in strength, balance, and range of motion with underlying impairments and functional limitations as documented above Presentation: Evolving Decision Makin Moderate complexity Goals: Goals X1 week 1. Supine-Sit independent 2. Sit-Supine independent 3. Sit-Stand independent 4. Stand-Sit independent 5. Bed-Chair independent 6. Chair-Bed independent 7. Independent gait on level surface with use of least restrictive device for at least 300 feet without report of pain nor dyspnea 8. Independent stair negotiation while holding onto bilateral rails for at least 10 steps without report of pain nor dyspnea 9. Independent with home exercise program 10. Good static and dynamic standing balance/tolerance Plan of Care/Treatment Plan: 1-2x/day, 7 days/week x 1 week. Plan of care has been reviewed with the QUILL PICKING MACHINE OPERATOR providing the service under Physical Therapy direction. Initiate Physical Therapy intervention for strengthening, bed mobility, transfers, gait, stairs, balance training, use of assistive device. DISCHARGE RECOMMENDATIONS: Patient is to be discharged under the care of her daughter after all of the above goals are met and she is medically stable. Patient will benefit from home health PT services in order to progress mobility level using least restrictive assistive ambulatory device, assess home safety, identify additional equipment needs, and establish a functional maintenance program that will increase ability of patient to remain at home. TREATMENT CODE/TIME: 87607 x 19 minutes beginning at 9:35 AM. Thank you very much for this referral. Theresa Pro PT, DPT, CLT [facility]
--- NOTE | 2019-07-14 14:12 | PT.INTREAT ---
Date of service: 07/14/19 Time of Service: 14:12 PT Notes Inpatient Physical Therapy Treatment Note [facility] Date: 07/14/2019 PRECAUTIONS: Fall SUBJECTIVE: Karina is agreeable to participating in PT. OBJECTIVE: PAIN: No c/o pain BED MOBILITY/TRANSFERS Supine-sit: I Sit-supine: I Sit-stand: SBA Stand-sit: SBA GAIT Assistive Device: No AD/push IV Pole Weight bearing: Full Assist: SBA Distance: 150' Deviation: Seated rest x1 VITALS: SaO2: 95-88% on RA with gait training THEREX: Patient completed a LE strengthening and program, in a seated position, as per flow sheet. ASSESSMENT: Patient tolerated session with c/o increased SOB with gait training. She was able to tolerate a progression in gait distance without assistive device support and with SBA. She would benefit from general conditioning for improved activity tolerance. PLAN: Continue with PT's POC TREATMENT CODE/TIME: 25 minutes; 01021, 04923
[2019-07-14 16:20] VITALS: O2SAT 93
[2019-07-14 20:20] VITALS: BP 158/62; PULSE 74; RESP 18; TEMP 37; O2SAT 95; O2SAT 98
[2019-07-14] MEDS: Atorvastatin 40 MG TAB PO (21:02)
[2019-07-14] MEDS: Insulin Glargine 300 UNITS/3 ML PEN 50 UNITS SC (21:03)
[2019-07-15] VITALS (14 sets, daily range): BP systolic 129–174; BP diastolic 53–88; PULSE 58–74; RESP 14–22; TEMP 36.1–37.2; O2SAT 85–98
[2019-07-15] MEDS: methylPREDNISolone SUCC 40 MG VIAL IVP ×3 (02:56→21:26)
[2019-07-15] MEDS: Normal Saline Flush 10 ML SYR IVP ×4 (02:57→21:26)
[2019-07-15 07:17] LABS: Abs Immature Grans 0.12 k/cumm (0.0-0.09); Absolute Lymphocyte Count 1.25 k/cumm (1.2-3.4); Absolute Monocyte Count 0.64 k/cumm (0.11-0.7); HCT 33.3 % (36.0-46.0); HGB 9.7 g/dL (12.0-15.5); Immature Grans % 0.6; Lymphocytes % 6.1; Mean Corp. HGB Concentration 29.1 g/dL (32.0-36.0); Mean Corpuscular Hemoglobin 24.5 pg (27.0-33.0); Mean Corpuscular Volume 84.1 fL (80-95); Mean Platelet Volume 10.5 fL (8.0-11.0); Monocytes % 3.1; Neutrophils % 90.2; Platelet Count 307 x1000/uL (130-400); RBC 3.96 m/cumm (4.00-5.20); RBC Distribution Width 17.8 % (11.7-14.6); White Blood Cell Count 20.52 k/cumm (4.4-10.8)
[2019-07-15 07:20] LABS: Absolute Neutrophil Count 18.51 k/cumm (1.2-6.7)
[2019-07-15 07:30] LABS: Anion Gap 8.7 mmol/L (3-11); BUN 58 mg/dL (7-18); CO2 32.3 mmol/L (21.0-32.0); CREATININE 1.98 mg/dL (0.55-1.02); Calcium 9.4 mg/dL (8.5-10.1); Chloride 100 mmol/L (98-107); Estimated GFR 24.44 (mL/min/1.73m2); Glucose 294 mg/dL (70-100); Magnesium 2.2 mg/dL (1.8-2.4); Potassium 4.9 mmol/L (3.5-5.1); Sodium 141 mmol/L (136-145)
[2019-07-15] MEDS: busPIRone 5 MG TAB 7.5 MG PO (07:46)
[2019-07-15] MEDS: Gabapentin 300 MG CAP 900 MG PO ×3 (07:47→19:41)
[2019-07-15] MEDS: amLODIPine 2.5 MG TAB PO (07:48)
[2019-07-15] MEDS: PARoxetine 20 MG TAB PO (07:48)
[2019-07-15] MEDS: Pantoprazole 40 MG TABCR PO (07:48)
[2019-07-15] MEDS: Isosorbide Dinitrate 10 MG TAB 30 MG PO ×2 (07:48→15:58)
[2019-07-15] MEDS: Clopidogrel 75 MG TAB PO (07:49)
[2019-07-15] MEDS: Apixaban 2.5 MG TAB PO ×2 (07:49→19:41)
[2019-07-15] MEDS: Metoprolol CR 25 MG TABCR PO (07:49)
[2019-07-15] MEDS: Furosemide 40 MG TAB PO ×2 (07:49→15:58)
[2019-07-15] MEDS: Ferrous Sulfate 325 MG TAB PO (07:49)
[2019-07-15] MEDS: Cholecalciferol (Vitamin D3) 1,000 UNIT TAB 1000 UNITS PO (07:51)
[2019-07-15] MEDS: Doxycycline Hyclate 100 MG CAP PO ×2 (07:51→19:41)
[2019-07-15] MEDS: hydrALAZINE 25 MG TAB PO ×3 (07:52→19:41)
[2019-07-15] MEDS: Insulin Aspart 300 UNITS/3 ML PEN SC ×4 (08:19→21:28)
--- NOTE | 2019-07-15 09:31 | PDOC.CMPRO ---
- If Service Date Differs Date of service: 07/15/19 Time of Service: 09:31 Care Management Progress Note S/O:Karina was sitting up in a chair when CM met with her. She was pleasant and cooperative and stated that she is feeling better. She said things have been going well since her discharge and that she continue to spend her days at [place]. A: Karina is a 79 year old woman admitted to [facility] on 07/13/19 with obstructive bronchitis with exacerbation P: Karina will be discharged home when medically ready per provider. Home services and equipment to be determined. CM to continue to provide support to patient, family, discharged planning and disposition.
[2019-07-15] MEDS: Insulin Glargine 300 UNITS/3 ML PEN 70 UNITS SC (09:58)
--- NOTE | 2019-07-15 11:57 | W.PM.PROGNOT ---
Date of Service Date of service: 07/15/19 Time of Service: 11:58 Assessment and Plan Assessment and plan (1) Obstructive chronic bronchitis with exacerbation: Status: Acute Assessment and plan: Breathing feels the same, cough improved today. White blood cell count up to 20.52 today in the setting of steroid therapy, continue to follow. Blood cultures with no growth at 24 hours. continue to monitor. Sputum culture growing Staph aureus. Continue Doxycycline, currently day #2. Continue to monitor sputum cultures. (2) COPD with acute exacerbation: Status: Inactive Assessment and plan: As above, in the setting of Bronchitis. Continue steroids, nebulizer treatments, doxycycline. Decrease steroids today. (3) Paroxysmal atrial fibrillation: Status: Acute Assessment and plan: Heart sounds regular, nontachycardic, continue apixiban and metoprolol. (4) Stroke due to embolism: Status: Acute Assessment and plan: Previous history of CVA. Continue apixaban. (5) Functional tremor: Status: Acute Assessment and plan: Chronic right hand tremor, she is followed by neurology. Will follow up as scheduled with neurology. (6) Chronic diastolic CHF (congestive heart failure): Status: Chronic Assessment and plan: Rales to bilateral bases. Continue home Lasix dosing. Give extra dose of IV Lasix, 20 mg x 1. Repeat BMP in the morning. (7) CKD (chronic kidney disease): Status: Acute Assessment and plan: Creatinine slightly above baseline. Continue to follow BMP. (8) DVT prophylaxis: Status: Acute Assessment and plan: Therapeutic on apixaban. (9) Discharge planning issues: Status: Acute Assessment and plan: She is a DNR/DNI. Lives with her daughter in [facility]. Physical therapy recommends home PT services. This case was discussed with Dr. Lopez who is in agreement. Subjective Subjective Interval history since last seen: Karina Bean reports slight substernal chest pain today. She states the chest discomfort began yesterday, increases with deep breathing, does not increase with activity. Her shortness of breath feels about the same today as yesterday. She states her breathing feels heavy. She denies coughing. She feels wheezy when she is out of bed ambulating. She denies palpitations. She is eating and drinking with no nausea, vomiting or diarrhea. She denies any lower extremity edema. She is voiding without difficulty. Exam Narrative Exam Narrative: General: elderly female sitting up in chair, alert and oriented, pleasant and cooperative, in NAD. She answers questions appropriately. HEENT: normocephalic, atruamatic, pupils equal and round, mucous membranes moist. Neck: supple, no JVD. Cardiovascular: heart has regular rate and rhythm, no murmur appreciated. Respiratory: respirations even and unlabored, rales to bilateral bases. GI: normoactive bowel sounds, abdomen soft, nontender on palpation, nondistended. Extremities: no clubbing, cyanosis or edema. Objective Objective Clinical Data: Abnormal lab results 07/15/19 07/15/19 Range/Units 06:58 06:58 WBC 20.52 H D (4.4-10.8) k/cumm RBC 3.96 L (4.00-5.20) m/cumm Hgb 9.7 L (12.0-15.5) g/dL Hct 33.3 L (36.0-46.0) % MCH 24.5 L (27.0-33.0) pg MCHC 29.1 L (32.0-36.0) g/dL RDW 17.8 H (11.7-14.6) % Absolute Neutrophils 18.51 H (1.2-6.7) k/cumm Carbon Dioxide 32.3 H (21.0-32.0) mmol/L BUN 58 H (7-18) mg/dL Creatinine 1.98 H (0.55-1.02) mg/dL Glucose 294 H (70-100) mg/dL Vital Signs Temperature 36.7 C 07/15/19 11:18 Temperature Source Tympanic 07/15/19 11:14 Pulse 58 L 07/15/19 11:18 Pulse Rhythm Regular 07/15/19 11:16 Pulse 69 07/13/19 13:30 Respiratory Rate 20 07/15/19 11:18 Respiratory Effort Incrsd Work of Breathing 07/15/19 11:16 Respiratory Depth Shallow 07/15/19 11:16 Respiratory Pattern Normal 07/15/19 11:16 Blood Pressure 129/66 07/15/19 11:18 Blood Pressure Mean 61 07/13/19 15:30 Blood Pressure Position Sitting 07/13/19 11:03 Pulse Oximetry 95 07/15/19 11:18 Oxygen Delivery Method Nasal Cannula 07/15/19 11:14 Oxygen Flow Rate 2 07/15/19 11:14 Pain Level 1 07/15/19 11:18 Comment 07/14/19 07:30 Intake & Output 07/14/19 07/14/19 07/15/19 11:59 23:59 11:59 Intake Total 1999 / 0 460 / 2460 260 / 260 Output Total 1300 / 2150 850 / 2150 Balance 700 / 310 -390 / 310 260 / 260 Weight 84.6 kg 82.3 kg Intake: IV 1999 100 / 2100 20 / 20 Oral 360 / 360 240 / 240 Output: Urine 1300 / 2150 850 / 2150 Other: Urine Color Yellow Yellow Urine Appearance Clear Clear Clear Urine Odor Normal Normal Comment pt missed the hat Stool Size Large Stool Characteristics Soft Formed Brown Voiding Methods Bedside Commode Bedside Commode Toilet Laboratory Results WBC 20.52 k/cumm (4.4-10.8) H D 07/15/19 06:58 RBC 3.96 m/cumm (4.00-5.20) L 07/15/19 06:58 Hgb 9.7 g/dL (12.0-15.5) L 07/15/19 06:58 Hct 33.3 % (36.0-46.0) L 07/15/19 06:58 MCV 84.1 fL (80-95) 07/15/19 06:58 MCH 24.5 pg (27.0-33.0) L 07/15/19 06:58 MCHC 29.1 g/dL (32.0-36.0) L 07/15/19 06:58 RDW 17.8 % (11.7-14.6) H 07/15/19 06:58 Plt Count 307 x1000/uL (130-400) 07/15/19 06:58 MPV 10.5 fL (8.0-11.0) 07/15/19 06:58 Abs Immat Gran (auto) Cancelled 07/13/19 12:10 Immature Gran % 0.6 07/15/19 06:58 Neutrophils % 90.2 07/15/19 06:58 Band Neutrophils % Cancelled 07/13/19 12:10 Lymphocytes % 6.1 07/15/19 06:58 Atypical Lymphs % Cancelled 07/13/19 12:10 Monocytes % 3.1 07/15/19 06:58 Eosinophils % 0.0 07/15/19 06:58 Basophils % 0.0 07/15/19 06:58 Metamyelocytes % Cancelled 07/13/19 12:10 Myelocytes % Cancelled 07/13/19 12:10 Promyelocytes % Cancelled 07/13/19 12:10 Absolute Neutrophils 18.51 k/cumm (1.2-6.7) H 07/15/19 06:58 Absolute Lymphocytes 1.25 k/cumm (1.2-3.4) 07/15/19 06:58 Absolute Monocytes 0.64 k/cumm (0.11-0.7) 07/15/19 06:58 Absolute Eosinophils 0.00 k/cumm (0.0-0.7) 07/15/19 06:58 Absolute Basophils 0.00 k/cumm (0.0-0.2) 07/15/19 06:58 Nucleated RBCs Cancelled 07/13/19 12:10 Differential Comment Rbc morph reviewed 07/14/19 06:47 Other Cell Type Cancelled 07/13/19 12:10 RBC Morphology See below 07/14/19 06:47 Polychromasia Present 07/14/19 06:47 Hypochromasia 2+ 07/14/19 06:47 Poikilocytosis Cancelled 07/13/19 12:10 Basophilic Stippling Cancelled 07/13/19 12:10 Anisocytosis 2+ 07/14/19 06:47 Microcytosis 2+ 07/14/19 06:47 Macrocytosis Cancelled 07/13/19 12:10 Spherocytes Cancelled 07/13/19 12:10 Target Cells Cancelled 07/13/19 12:10 Tear Drop Cells Cancelled 07/13/19 12:10 Ovalocytes Cancelled 07/13/19 12:10 Stomatocytes Cancelled 07/13/19 12:10 [place] Bodies Cancelled 07/13/19 12:10 Meena Cells Cancelled 07/13/19 12:10 Acanthocytes (Spur) Cancelled 07/13/19 12:10 Schistocytes Cancelled 07/13/19 12:10 Sodium 141 mmol/L (136-145) 07/15/19 06:58 Potassium 4.9 mmol/L (3.5-5.1) 07/15/19 06:58 Chloride 100 mmol/L (98-107) 07/15/19 06:58 Carbon Dioxide 32.3 mmol/L (21.0-32.0) H 07/15/19 06:58 Anion Gap 8.7 mmol/L (3-11) 07/15/19 06:58 BUN 58 mg/dL (7-18) H 07/15/19 06:58 Creatinine 1.98 mg/dL (0.55-1.02) H 07/15/19 06:58 Estimated GFR/1.73 m2 24.44 (mL/min/1.73m2) 07/15/19 06:58 Glucose 294 mg/dL (70-100) H 07/15/19 06:58 Calcium 9.4 mg/dL (8.5-10.1) 07/15/19 06:58 Magnesium 2.2 mg/dL (1.8-2.4) 07/15/19 06:58 Total Bilirubin 0.3 mg/dL (0.2-1.0) 07/13/19 12:30 AST 18 U/L (15-37) 07/13/19 12:30 ALT 20 U/L (14-59) 07/13/19 12:30 Alkaline Phosphatase 98 U/L (46-116) 07/13/19 12:30 Troponin I < 0.05 ng/mL (0.00-0.06) 07/13/19 12:30 NT-Pro-B Natriuret Pep 570 pg/mL (-299) H 07/13/19 12:30 Total Protein 8.2 g/dL (6.4-8.2) 07/13/19 12:30 Albumin 3.2 g/dL (3.4-5.0) L 07/13/19 12:30
[2019-07-15 11:59] LABS: Troponin I < 0.05 ng/mL (0.00-0.06)
--- NOTE | 2019-07-15 12:17 | PT.INTREAT ---
Date of service: 07/15/19 Time of Service: 12:17 PT Notes Inpatient Physical Therapy Treatment Note [facility] Date: 07/15/2019 PRECAUTIONS: Fall SUBJECTIVE: Karina is agreeable to participating in PT, reporting that she continues to get SOB easily. OBJECTIVE: PAIN: No c/o pain BED MOBILITY/TRANSFERS Supine-sit: I Sit-stand: S in a.m.; I in p.m. Stand-sit: S in a.m.; I in p.m. GAIT Assistive Device: No AD Weight bearing: Full Assist: SBA Distance: 150' in a.m.; 200' + 50' in p.m. Deviation: Seated rest x1 VITALS: A.M. session performed in collaboration with Respiratory Therapy, please see their note for specific vital signs. P.M. Session: SaO2: 88-92% on 2L O2 via NC STAIRS: Up/down 3x4 and 2x6 using 1 rail and a step-to pattern with supervision ASSESSMENT: Patient tolerated session with c/o increased SOB with gait training. She was able to tolerate a progression in gait distance without assistive device support and with SBA. She would benefit from general conditioning for improved activity tolerance. PLAN: Continue with PT's POC TREATMENT CODE/TIME: Session 1: 25 minutes; 32264, [id number] Session 2: 20 minutes; 23882
[2019-07-15 12:31] LABS: Glucose 418 mg/dL (70-100)
[2019-07-15] MEDS: Furosemide 20 MG/2 ML VIAL IVP (12:48)
--- NOTE | 2019-07-15 15:44 | CHAPLAIN ---
Karina was sitting up in the chair when I visited. She was very pleasant and easily engaged in a conversation. She told me that she moved to [place] from [place] to live with her daughter. She didn't remember where her daughter works, but thought that her daughter may stop by after she is done work. I explained my role and offered support.
[2019-07-15 17:38] LABS: Glucose 447 mg/dL (70-100)
[2019-07-15 17:39] LABS: Troponin I < 0.05 ng/mL (0.00-0.06)
[2019-07-15 20:51] LABS: Glucose 420 mg/dL (70-100)
[2019-07-15 21:16] LABS: Troponin I < 0.05 ng/mL (0.00-0.06)
[2019-07-15] MEDS: Atorvastatin 40 MG TAB PO (21:27)
[2019-07-15] MEDS: Insulin Glargine 300 UNITS/3 ML PEN 55 UNITS SC (21:27)
[2019-07-16] VITALS (15 sets, daily range): BP systolic 126–184; BP diastolic 49–79; PULSE 57–72; RESP 2–30; TEMP 36.5–37; O2SAT 90–98
[2019-07-16 07:01] LABS: Abs Immature Grans 0.22 k/cumm (0.0-0.09); Absolute Basophil Count 0.02 k/cumm (0.0-0.2); Basophils % 0.1; HCT 33.9 % (36.0-46.0); Immature Grans % 1.1; Lymphocytes % 9.8; Mean Corp. HGB Concentration 29.5 g/dL (32.0-36.0); Mean Corpuscular Hemoglobin 24.2 pg (27.0-33.0); Mean Corpuscular Volume 82.1 fL (80-95); Mean Platelet Volume 10.3 fL (8.0-11.0); Monocytes % 4.9; Neutrophils % 84.1; Platelet Count 314 x1000/uL (130-400); RBC 4.13 m/cumm (4.00-5.20); RBC Distribution Width 17.6 % (11.7-14.6); White Blood Cell Count 20.45 k/cumm (4.4-10.8)
[2019-07-16 07:24] LABS: Anion Gap 7.9 mmol/L (3-11); BUN 73 mg/dL (7-18); CO2 32.1 mmol/L (21.0-32.0); CREATININE 1.97 mg/dL (0.55-1.02); Calcium 9.3 mg/dL (8.5-10.1); Chloride 101 mmol/L (98-107); Estimated GFR 24.58 (mL/min/1.73m2); Glucose 127 mg/dL (70-100); Potassium 4.5 mmol/L (3.5-5.1); Sodium 141 mmol/L (136-145); TSH (W/Ref FT4) 0.51 uIU/mL (0.36-3.74)
[2019-07-16] MEDS: Gabapentin 300 MG CAP 900 MG PO ×3 (08:08→20:05)
[2019-07-16] MEDS: Cholecalciferol (Vitamin D3) 1,000 UNIT TAB 1000 UNITS PO (08:08)
[2019-07-16] MEDS: busPIRone 5 MG TAB 7.5 MG PO (08:09)
[2019-07-16] MEDS: Clopidogrel 75 MG TAB PO (08:11)
[2019-07-16] MEDS: Pantoprazole 40 MG TABCR PO (08:11)
[2019-07-16] MEDS: Doxycycline Hyclate 100 MG CAP PO ×2 (08:11→20:05)
[2019-07-16] MEDS: Isosorbide Dinitrate 10 MG TAB 30 MG PO ×2 (08:12→15:25)
[2019-07-16] MEDS: hydrALAZINE 25 MG TAB PO ×3 (08:12→20:04)
[2019-07-16] MEDS: amLODIPine 2.5 MG TAB PO (08:13)
[2019-07-16] MEDS: Apixaban 2.5 MG TAB PO ×2 (08:13→20:05)
[2019-07-16] MEDS: Ferrous Sulfate 325 MG TAB PO (08:13)
[2019-07-16] MEDS: PARoxetine 20 MG TAB PO (08:13)
[2019-07-16] MEDS: Furosemide 40 MG TAB PO ×2 (08:14→15:25)
[2019-07-16] MEDS: Metoprolol CR 25 MG TABCR PO (08:14)
[2019-07-16] MEDS: Insulin Glargine 300 UNITS/3 ML PEN 70 UNITS SC (08:15)
[2019-07-16] MEDS: Acetaminophen 325 MG TAB PO ×2 (08:15→16:34)
--- NOTE | 2019-07-16 08:56 | OTIE_ITS ---
Occupational Therapy Notes Inpatient Occupational Therapy Evaluation Date: 07/16/19 Referring Doctor: Edelmira Oconnor NP OT Orders: Eval and Treat: Non Urgent Precautions: Fall, standard PATIENT PROFILE/ADMITTING DIAGNOSIS: Pt is a 79 year old female who was admitted to [facility] through the ER for SOB and COPD exacerbation. Past Medical History: Medical History CAD (coronary artery disease) (Chronic) Carotid stenosis (Acute) s/p bilateral CEA Chronic diastolic CHF (congestive heart failure) (Chronic) Chronic low back pain (Acute) CKD (chronic kidney disease) (Acute) COPD (chronic obstructive pulmonary disease) (Chronic) Depression with anxiety (Acute) Diabetes mellitus (Chronic) 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 mellitus (Acute) Diverticulitis (Chronic) GERD (gastroesophageal reflux disease) (Chronic) History of pulmonary embolism (Acute) Hyperlipidemia (Acute) Hypertension (Chronic) Hypothyroidism (Chronic) Obesity (BMI 30.0-34.9) (Chronic) DANYELLE (obstructive sleep apnea) (Chronic) Paroxysmal atrial fibrillation (Acute) Peripheral vascular disease (Chronic) Rheumatoid arthritis (Chronic) Surgical History H/O cardiac catheterization (Chronic) [address] History of left-sided carotid endarterectomy (Acute) History of right-sided carotid endarterectomy (Acute) S/P arterial stent (Acute) leg x2 S/P arteriovenous (AV) fistula creation (Acute) [facility] in [place] Social History/Home Situation: Pt lives in her daughters home. She reports that she is totally (I) at her baseline level of function. She states that she attends an adult day program from 8-5 and is able to participate in activities like Bingo with her friends. When she is home she reports that she cannot drive and her daughter (A) With cooking/laundry. She utilizes [employer] during the day and has a tub/shower which she states that she has has a shower bench and can perform totally (I). Equipment owned/DME: [employer], [employer], pt states that she does not use them because she doesn't need them. SUBJECTIVE: Pt was sitting in chair when OT arrived. She was agreeable to OT session and reports that she would like to figure out why she has a small pain in her side so that she does not have to come back to the hospital again. OBJECTIVE: General Observation: Pleasant and able to answer questions, she has an IV in her (R) hand which is not connected, O2 nasal cannula 2 liters. Mental Status: A&Ox3 Pain: no c/o pain ROM: RUE AROM WFL L UE AROM WFL STRENGTH: RUE 4/5 throughout globally with strong knockout man LUE 4/5 throughout globally with strong knockout man FUNCTIONAL MOBILITY/ADLS: Transfers no (A) device Sit-Stand (I) Stand-sit (I) Chair-sink (I) Sink-chair (I) BATHING - standing at sink pt was (I) with washing (B) UE, hair, abdomen, floyd area, and (B) LE DRESSING-standing at sink pt is (I) with don and doffing hospital gown. Sitting in chair pt was (I) with don and doffing (B) socks. GROOMING Standing at sink (I) with brushing hair TOILETING On toilet (I) EATING sitting in chair (I) with ideal cutting of food and hand to mouth translation BALANCE: Static sitting Normal Dynamic Sitting Normal Static Standing Normal Dynamic Standing Normal SPECIAL TESTS: Daily Activity Limitations Standardized Measure [facility] AM -PAC ?6 clicks? Daily Activity Inpatient Short Form: Raw score: 23 INFORMED CONSENT/EDUCATION: Pt instructed in purpose of OT Consult and plan of care. ASSESSMENT: Patient is a 79-year-old female referred to occupational therapy services with diagnosis of SOB, and exacerbation of COPD. OT consulted with pt this morning and pt was able to demonstrate ideal and baseline level of function. She was (I) with her ADL routines, OT does not feel that pt will need occupational therapy services at this time. OT will plan to discharge pt from skilled OT services at this time. AMPAC score 23 Patient is assessed as a Low 14207 complexity based on the following: History: See Above Examination: See functional limitations as listed above Presentation: Evolving Decision Making: AMPAC score 23 GOALS N/A PLAN OF CARE/TREATMENT PLAN: OT consult only. DISCHARGE RECOMMENDATIONS - Home when medically cleared per MD. TREATMENT TIME/MINUTES/CODES [id number], [id number], 35 minutes (08:25) Carole Mchugh OTR/[facility]
[2019-07-16] MEDS: Normal Saline Flush 10 ML SYR IVP ×2 (09:08→10:15)
[2019-07-16] MEDS: methylPREDNISolone SUCC 40 MG VIAL IVP (10:15)
--- NOTE | 2019-07-16 11:01 | PT.INTREAT ---
Date of service: 07/16/19 Time of Service: 11:01 PT Notes 07/16/19 SUBJECTIVE: Karina stating she is feeling well. She complains of slight SOB at end of session today on RA. OBJECTIVE: Pt supine in bed. Agreeable to PT treatment. TRANSFERS Supine to sit: I Sit to supine: I Sit to stand: I Stand to sit: I GAIT Device: No AD Weight bearing: Full Assist: S Distance: 150'x2 Deviation: Wide FRANNIE, no LOB, RA VITALS: 91-95% throughout, HR 57 b/m. STAIRS: 3-4 steps, 2-6 steps, 2 rails, Step to pattern, S only THEREX: Seated UE/LE strengthening exercises performed as noted on flow sheet. ASSESSMENT: Pt tolerates progression in functional mobility and strengthening well today without use of AD or supplemental O2. No LOB with ambulation. PLAN: Continue current POC. Treatment time: 25' [id number], [id number] Malissa Lee PTA Clinic location: [facility] [place], [place]
[2019-07-16] MEDS: Insulin Aspart 300 UNITS/3 ML PEN SC ×3 (12:02→23:12)
--- NOTE | 2019-07-16 12:51 | PGE_ITS ---
Date of Service Date of service: 07/16/19 Time of Service: 12:51 Assessment and Plan Assessment and plan (1) Obstructive chronic bronchitis with exacerbation: Status: Acute Assessment and plan: Her shortness of breath has improved today. Her white blood cell count remains elevated at 20.45 today in the setting of steroid therapy, continue to follow. She remains afebrile. Blood cultures with no growth at 48 hours, continue to monitor. Sputum culture growing normal kurt with few gram positive cocci in pairs. Continue Doxycycline, currently day #3. Transition to oral steroids. (2) COPD with acute exacerbation: Status: Inactive Assessment and plan: As above, in the setting of Bronchitis. Continue nebulizer treatments, doxycycline. Transition to oral steroids today. (3) Paroxysmal atrial fibrillation: Status: Acute Assessment and plan: Heart sounds regular, nontachycardic, continue apixiban and metoprolol. (4) Stroke due to embolism: Status: Acute Assessment and plan: Previous history of CVA. Continue apixaban. (5) Functional tremor: Status: Acute Assessment and plan: Chronic right hand tremor, she is followed by neurolo raisa. Will follow up as scheduled with neurology. (6) Chronic diastolic CHF (congestive heart failure): Status: Chronic Assessment and plan: Shortness of breath improving. No rales on exam. Continue lasix at home dose. Repeat BMP in the morning. (7) CKD (chronic kidney disease): Status: Acute Assessment and plan: Creatinine slightly above baseline. Continue to follow BMP. She is followed by Dr. Gio Parham, Nephrology at [facility] who set her up for outpatient Venofer infusions through the infusion room. She was due to start today. Her labs as of 07/03/19 showed Iron of 38, Iron saturation of 11, ferritin of 37 at [facility]. Will give first Venofer dose here. Infusion staff spoke with Dr. Parham who is in agreement with this plan. She will have 2 more weekly infusions as an outpatient and follow up with Nephrology as scheduled. (8) DVT prophylaxis: Status: Acute Assessment and plan: Therapeutic on apixaban. (9) Discharge planning issues: Status: Acute Assessment and plan: She is a DNR/DNI. Lives with her daughter in [facility]. Physical therapy recommends home PT services. This case was discussed with Dr. Lopez who is in agreement. Subjective Subjective Interval history since last seen: Karina Bean reports feeling better today, she denies shortness of breath. She reports an occasional nonproductive cough, she occasionally feels wheezy. She has been out of bed ambulating. She denies chest pain or pressure today. She is eating and drinking, and tolerating her diet without abdominal pain, nausea, vomiting or diarrhea. She had a normal bowel movement today. Exam Narrative Exam Narrative: General: elderly female laying in bed, alert and oriented, pleasant and cooperative, in NAD. She answers questions appropriately. HEENT: normocephalic, atruamatic, pupils equal and round, mucous membranes moist. Neck: supple, no JVD. Cardiovascular: heart has regular rate and rhythm, no murmur appreciated. Respiratory: respirations even and unlabored, lung sounds clear to auscultation bilaterally, no rales or wheezing. GI: normoactive bowel sounds, abdomen soft, nontender on palpation, nondistended. Extremities: no clubbing, cyanosis or edema. Objective Objective Clinical Data: Abnormal lab results 07/15/19 07/15/19 07/16/19 Range/Units 16:54 20:27 06:40 WBC (4.4-10.8) k/cumm Hgb (12.0-15.5) g/dL Hct (36.0-46.0) % MCH (27.0-33.0) pg MCHC (32.0-36.0) g/dL RDW (11.7-14.6) % Absolute Neutrophils (1.2-6.7) k/cumm Absolute Monocytes (0.11-0.7) k/cumm Carbon Dioxide 32.1 H (21.0-32.0) mmol/L BUN 73 H D (7-18) mg/dL Creatinine 1.97 H (0.55-1.02) mg/dL Glucose 447 H 420 H 127 H D (70-100) mg/dL 07/16/19 Range/Units 06:40 WBC 20.45 H (4.4-10.8) k/cumm Hgb 10.0 L (12.0-15.5) g/dL Hct 33.9 L (36.0-46.0) % MCH 24.2 L (27.0-33.0) pg MCHC 29.5 L (32.0-36.0) g/dL RDW 17.6 H (11.7-14.6) % Absolute Neutrophils 17.20 H (1.2-6.7) k/cumm Absolute Monocytes 1.00 H (0.11-0.7) k/cumm Carbon Dioxide (21.0-32.0) mmol/L BUN (7-18) mg/dL Creatinine (0.55-1.02) mg/dL Glucose (70-100) mg/dL Vital Signs Temperature 37 C 07/16/19 07:30 Temperature Source Tympanic 07/16/19 07:30 Pulse 57 L 07/16/19 09:05 Pulse Rhythm Regular 07/16/19 09:10 Pulse 69 07/13/19 13:30 Respiratory Rate 18 07/16/19 07:30 Respiratory Effort Non-Labored 07/16/19 09:10 Respiratory Depth Normal 07/16/19 09:10 Respiratory Pattern Normal 07/16/19 09:10 Blood Pressure 147/79 H 07/16/19 07:30 Blood Pressure Mean 61 07/13/19 15:30 Blood Pressure Position Sitting 07/13/19 11:03 Pulse Oximetry 98 07/16/19 10:14 Oxygen Delivery Method Room Air 07/16/19 10:51 Oxygen Flow Rate 0 07/16/19 10:51 Pain Level 4 07/16/19 09:15 Comment 07/14/19 07:30 Intake & Output 07/15/19 07/16/19 07/16/19 23:59 11:59 23:59 Intake Total 570 / 830 245 / 245 0 / 245 Output Total 100 / 100 Balance 470 / 730 245 / 245 0 / 245 Weight 82 kg Intake: IV 30 / 50 5 / 5 Oral 540 / 780 240 / 240 0 / 240 Output: Urine 100 / 100 Other: Urine Color Yellow Pale Yellow Urine Appearance Clear Clear Comment Unknown amount of urine. Patient missed the hat in toilet. Voiding Methods Toilet Toilet Laboratory Results WBC 20.45 k/cumm (4.4-10.8) H 07/16/19 06:40 RBC 4.13 m/cumm (4.00-5.20) 07/16/19 06:40 Hgb 10.0 g/dL (12.0-15.5) L 07/16/19 06:40 Hct 33.9 % (36.0-46.0) L 07/16/19 06:40 MCV 82.1 fL (80-95) 07/16/19 06:40 MCH 24.2 pg (27.0-33.0) L 07/16/19 06:40 MCHC 29.5 g/dL (32.0-36.0) L 07/16/19 06:40 RDW 17.6 % (11.7-14.6) H 07/16/19 06:40 Plt Count 314 x1000/uL (130-400) 07/16/19 06:40 MPV 10.3 fL (8.0-11.0) 07/16/19 06:40 Abs Immat Gran (auto) Cancelled 07/13/19 12:10 Immature Gran % 1.1 07/16/19 06:40 Neutrophils % 84.1 07/16/19 06:40 Band Neutrophils % Cancelled 07/13/19 12:10 Lymphocytes % 9.8 07/16/19 06:40 Atypical Lymphs % Cancelled 07/13/19 12:10 Monocytes % 4.9 07/16/19 06:40 Eosinophils % 0.0 07/16/19 06:40 Basophils % 0.1 07/16/19 06:40 Metamyelocytes % Cancelled 07/13/19 12:10 Myelocytes % Cancelled 07/13/19 12:10 Promyelocytes % Cancelled 07/13/19 12:10 Absolute Neutrophils 17.20 k/cumm (1.2-6.7) H 07/16/19 06:40 Absolute Lymphocytes 2.00 k/cumm (1.2-3.4) 07/16/19 06:40 Absolute Monocytes 1.00 k/cumm (0.11-0.7) H 07/16/19 06:40 Absolute Eosinophils 0.00 k/cumm (0.0-0.7) 07/16/19 06:40 Absolute Basophils 0.02 k/cumm (0.0-0.2) 07/16/19 06:40 Nucleated RBCs Cancelled 07/13/19 12:10 Differential Comment Rbc morph reviewed 07/14/19 06:47 Other Cell Type Cancelled 07/13/19 12:10 RBC Morphology See below 07/14/19 06:47 Polychromasia Present 07/14/19 06:47 Hypochromasia 2+ 07/14/19 06:47 Poikilocytosis Cancelled 07/13/19 12:10 Basophilic Stippling Cancelled 07/13/19 12:10 Anisocytosis 2+ 07/14/19 06:47 Microcytosis 2+ 07/14/19 06:47 Macrocytosis Cancelled 07/13/19 12:10 Spherocytes Cancelled 07/13/19 12:10 Target Cells Cancelled 07/13/19 12:10 Tear Drop Cells Cancelled 07/13/19 12:10 Ovalocytes Cancelled 07/13/19 12:10 Stomatocytes Cancelled 07/13/19 12:10 [place]aird-[place] Bodies Cancelled 07/13/19 12:10 Cisco Cells Cancelled 07/13/19 12:10 Acanthocytes (Spur) Cancelled 07/13/19 12:10 Schistocytes Cancelled 07/13/19 12:10 Sodium 141 mmol/L (136-145) 07/16/19 06:40 Potassium 4.5 mmol/L (3.5-5.1) 07/16/19 06:40 Chloride 101 mmol/L (98-107) 07/16/19 06:40 Carbon Dioxide 32.1 mmol/L (21.0-32.0) H 07/16/19 06:40 Anion Gap 7.9 mmol/L (3-11) 07/16/19 06:40 BUN 73 mg/dL (7-18) H D 07/16/19 06:40 Creatinine 1.97 mg/dL (0.55-1.02) H 07/16/19 06:40 Estimated GFR/1.73 m2 24.58 (mL/min/1.73m2) 07/16/19 06:40 Glucose 127 mg/dL (70-100) H D 07/16/19 06:40 Calcium 9.3 mg/dL (8.5-10.1) 07/16/19 06:40 Magnesium 2.0 mg/dL (1.8-2.4) 07/16/19 06:40 Total Bilirubin 0.3 mg/dL (0.2-1.0) 07/13/19 12:30 AST 18 U/L (15-37) 07/13/19 12:30 ALT 20 U/L (14-59) 07/13/19 12:30 Alkaline Phosphatase 98 U/L (46-116) 07/13/19 12:30 Troponin I < 0.05 ng/mL (0.00-0.06) 07/15/19 20:27 NT-Pro-B Natriuret Pep 570 pg/mL (-299) H 07/13/19 12:30 Total Protein 8.2 g/dL (6.4-8.2) 07/13/19 12:30 Albumin 3.2 g/dL (3.4-5.0) L 07/13/19 12:30 TSH 0.51 uIU/mL (0.36-3.74) 07/16/19 06:40
[2019-07-16] MEDS: Albuterol/Ipratropium 3 ML UPD VIAL UPD (13:26)
--- NOTE | 2019-07-16 15:12 | PT.INTREAT ---
Date of service: 07/16/19 Time of Service: 15:13 PT Notes 07/16/19 SUBJECTIVE: Karina stating she is feeling pretty good. No new complaints. OBJECTIVE: Seated EOB. Agreeable to PT treatment. TRANSFERS Sit to stand: I Stand to sit: I GAIT Device: No AD Weight bearing: Full Assist: S Distance: 175'+50' Stairs: 3-4 steps, 2-6 steps, bilateral rails, step to, S THEREX: UE/LE strengthening utilizing thera band for increased resistance. See flow sheet. VITALS: 91-93% throughout, 69-80 b/m. ASSESSMENT: Tolerating PT well with improvement in gait distance and speed with little complaints of SOB throughout. PLAN: Continue current POC. Treatment time: 30 minutes [id number], [id number] Malissa Lee PTA Clinic location: [facility] [place], [place]
--- NOTE | 2019-07-16 15:20 | CMPROGNOTE_ITS ---
- If Service Date Differs Date of service: 07/16/19 Time of Service: 15:20 Care Management Progress Note S/O:Karina was sitting up in a chair when CM met with her. She was pleasant and cooperative and stated that she is feeling better. She shared that she and her daughter had just returned from vacation. They went to [place], [place] and spent a week there. When asked what she liked the best, Karina said she liked the music. A: Karina is a 79 year old woman admitted to [facility] on 07/13/19 with obstructive bronchitis with exacerbation P: Karina will be discharged home when medically ready per provider. Home services and equipment to be determined. CM to continue to provide support to patient, family, discharged planning and disposition.
[2019-07-16 17:35] LABS: Troponin I < 0.05 ng/mL (0.00-0.06)
[2019-07-16] MEDS: predniSONE 20 MG TAB 40 MG PO (20:04)
[2019-07-16] MEDS: Insulin Glargine 300 UNITS/3 ML PEN 55 UNITS SC (23:13)
[2019-07-16] MEDS: Atorvastatin 40 MG TAB PO (23:16)
[2019-07-17 07:25] VITALS: BP 168/69; PULSE 58; RESP 17; TEMP 36.4; O2SAT 97
[2019-07-17 07:27] LABS: Abs Immature Grans 0.35 k/cumm (0.0-0.09); Absolute Basophil Count 0.03 k/cumm (0.0-0.2); Absolute Lymphocyte Count 2.06 k/cumm (1.2-3.4); Absolute Monocyte Count 1.14 k/cumm (0.11-0.7); Basophils % 0.2; HCT 36.1 % (36.0-46.0); HGB 10.6 g/dL (12.0-15.5); Immature Grans % 2.1; Lymphocytes % 12.3; Mean Corp. HGB Concentration 29.4 g/dL (32.0-36.0); Mean Corpuscular Hemoglobin 24.1 pg (27.0-33.0); Mean Corpuscular Volume 82.2 fL (80-95); Mean Platelet Volume 10.2 fL (8.0-11.0); Monocytes % 6.8; Neutrophils % 78.6; Platelet Count 336 x1000/uL (130-400); RBC 4.39 m/cumm (4.00-5.20); RBC Distribution Width 17.6 % (11.7-14.6); White Blood Cell Count 16.76 k/cumm (4.4-10.8)
[2019-07-17 07:30] LABS: Absolute Neutrophil Count 13.17 k/cumm (1.2-6.7)
[2019-07-17] MEDS: Doxycycline Hyclate 100 MG CAP PO ×2 (07:34→20:13)
[2019-07-17] MEDS: PARoxetine 20 MG TAB PO (07:34)
[2019-07-17] MEDS: busPIRone 5 MG TAB 7.5 MG PO (07:34)
[2019-07-17] MEDS: Ferrous Sulfate 325 MG TAB PO (07:35)
[2019-07-17] MEDS: Isosorbide Dinitrate 10 MG TAB 30 MG PO ×2 (07:35→16:54)
[2019-07-17] MEDS: hydrALAZINE 25 MG TAB PO ×3 (07:35→20:13)
[2019-07-17] MEDS: Pantoprazole 40 MG TABCR PO ×2 (07:35→20:13)
[2019-07-17] MEDS: Metoprolol CR 25 MG TABCR PO (07:35)
[2019-07-17] MEDS: Apixaban 2.5 MG TAB PO ×2 (07:36→20:13)
[2019-07-17] MEDS: Cholecalciferol (Vitamin D3) 1,000 UNIT TAB 1000 UNITS PO (07:36)
[2019-07-17] MEDS: Gabapentin 300 MG CAP 900 MG PO ×3 (07:36→20:12)
[2019-07-17] MEDS: Furosemide 40 MG TAB PO (07:36)
[2019-07-17] MEDS: Clopidogrel 75 MG TAB PO (07:37)
[2019-07-17] MEDS: amLODIPine 2.5 MG TAB PO (07:37)
[2019-07-17 07:40] LABS: Anion Gap 7.5 mmol/L (3-11); CO2 34.5 mmol/L (21.0-32.0); CREATININE 2.14 mg/dL (0.55-1.02); Calcium 9.4 mg/dL (8.5-10.1); Chloride 99 mmol/L (98-107); Estimated GFR 22.35 (mL/min/1.73m2); Glucose 207 mg/dL (70-100); Magnesium 2.1 mg/dL (1.8-2.4); Potassium 4.6 mmol/L (3.5-5.1); Sodium 141 mmol/L (136-145)
[2019-07-17 07:42] LABS: BUN 90 mg/dL (7-18)
[2019-07-17] MEDS: Insulin Aspart 300 UNITS/3 ML PEN SC ×4 (08:41→22:04)
[2019-07-17] MEDS: Insulin Glargine 300 UNITS/3 ML PEN 70 UNITS SC (08:44)
[2019-07-17] MEDS: predniSONE 20 MG TAB 40 MG PO ×2 (08:44→20:13)
[2019-07-17 08:54] VITALS: PULSE 63; RESP 18; RESP 2; O2SAT 92
[2019-07-17] MEDS: Albuterol/Ipratropium 3 ML UPD VIAL UPD ×2 (08:54→22:04)
[2019-07-17 08:59] VITALS: PULSE 58; RESP 18; RESP 8; O2SAT 100
--- NOTE | 2019-07-17 10:51 | W.INDIABCONS ---
Date of service: 07/17/19 Time of Service: 10:51 Diabetes Inpatient Consult DESCRIPTION/ASSESSMENT: Appreciate diabetes consult for Karina Bean who is hospitalized with obstructive chronic bronchitis and COPD. GFR 22 no current A1c available; BMI 32 She is on a low sodium meal plan. She is currently receiving 40mg Prednisone twice a day. Blood sugars this hospitalization fasting 300s except yesterday 108 and today 203; otherwise blood sugars 200s-497. Insulin has just been increased to 55u PM and 70u AM and resistant insulin correction. Carbohydrate intake approximately 40-50grams at each meal; generally eating 100% of her offered meals. Her home medication list includes both Lispro and Novolog so unclear what she does take on a regular basis; basal insulin 70 and 50units daily. Attempted to visit Karina for past 3 days. She is asleep each time. INTERVENTION: Steroid induced hyperglycemia is evident even with diligent insulin administration. She may benefit from additional basal insulin and to have insulin for carbohydrate at 1u:10grams as a start. PLAN: Will follow blood sugars and nutrition intake Suggest A1c Will f/u regarding self management prior to discharge as possible Time Spent in Nutritional Counseling and Treatment: 0 minutes face to face
[2019-07-17] MEDS: Normal Saline 1,000 ML 100 ML IV (11:26)
--- NOTE | 2019-07-17 13:24 | PT.INTREAT ---
Date of service: 07/17/19 Time of Service: 13:25 PT Notes Inpatient Physical Therapy Treatment Note [facility] Date: 07/17/19 SUBJECTIVE: Karina is agreeable to participating in PT this morning. OBJECTIVE: PAIN: Patient complaining of B LE pain with gait training BED MOBILITY/TRANSFERS Supine-sit: I with HOB flat Sit-stand: I Stand-sit: I GAIT Assistive Device: No AD Weight bearing: Full Assist: I Distance: 200' + 100' Deviation: Seated rest x1 due to increased B LE pain, path deviation to R x3 self corrected VITALS: SaO2: 88-96% on RA with gait training; patient placed on 1L O2 via NC x1 minute when O2 measured below 90%. ASSESSMENT: Patient tolerated session well, with complaint of B LE pain with gait training. She was able to demonstrate independence with all bed mobility, transfers, and gait, at this point. PLAN: As per primary PT TREATMENT CODE/TIME: 20 minutes; [id number]
--- NOTE | 2019-07-17 14:10 | PGE_ITS ---
Date of Service Date of service: 07/17/19 Time of Service: 14:11 Assessment and Plan Assessment and plan (1) Obstructive chronic bronchitis with exacerbation: Status: Acute Assessment and plan: Her shortness of breath has improved today. Her white blood cell count remains elevated but improving at 16.76 today. She is on steroids, she transitioned to prednisone yesterday, continue to follow CBC. She remains afebrile. Blood cultures with no growth at 72 hours. Sputum culture growing normal kurt. Continue Doxycycline, currently day #4. Continue oral steroids. Schedule nebulizer treatments as she is more wheezy today. (2) COPD with acute exacerbation: Status: Inactive Assessment and plan: As above, in the setting of Bronchitis. Continue nebulizer treatments, doxycycline, prednisone. (3) Paroxysmal atrial fibrillation: Status: Acute Assessment and plan: Heart sounds regular, nontachycardic, continue apixiban and metoprolol. (4) Stroke due to embolism: Status: Acute Assessment and plan: Previous history of CVA. Continue apixaban. (5) Functional tremor: Status: Acute Assessment and plan: Chronic right hand tremor, she is followed by neurology. Will follow up as scheduled with neurology. (6) Chronic diastolic CHF (congestive heart failure): Status: Chronic Assessment and plan: Hold lasix in the setting of elevated BUN and creatinine. Give gentle IV fluids x1 liter. Repeat BMP in the morning. (7) CKD (chronic kidney disease): Status: Acute Assessment and plan: With elevated BUN and creatinine today. BUN elevated to 90, creatinine at 2.14. Give gentle IV fluid hydration x1 liter of NS. Repeat labs tomorrow morning. She received venofer per outpatient nephrology orders yesterday. She will need to follow up with Nephrology as scheduled. (8) Chest pain: Status: Acute Assessment and plan: Increases with deep breathing. EKG shows no acute changes. Troponins cycled and less than 0.05. Increase PPI dosing. Continue to monitor. (9) DVT prophylaxis: Status: Acute Assessment and plan: Therapeutic on apixaban. (10) Discharge planning issues: Status: Acute Assessment and plan: She is a DNR/DNI. Lives with her daughter in [facility]. Physical therapy recommends home PT services. This case was discussed with Dr. Lopez who is in agreement. Subjective Subjective Interval history since last seen: Karina Bean denies shortness of breath. She has an occasional cough, and intermittently feels wheezy. She reports chest pain that increases with coughing, she had an EKG yesterday that showed no change, her troponins were cycled and <0.05. She is eating and drinking and tolerating her diet. No nausea, vomiting or diarrhea. She reports normal bowel movements. She is voiding without difficulty, no dysuria or hematuria. She feels fatigued and generally weak today, she denies dizziness. Exam Narrative Exam Narrative: General: elderly female sitting up on the edge of the bed, alert and oriented, pleasant and cooperative, in NAD. She answers questions a ppropriately. HEENT: normocephalic, atruamatic, pupils equal and round, mucous membranes moist. Neck: supple, no JVD. Cardiovascular: heart has regular rate and rhythm, no murmur appreciated. Respiratory: respirations even and unlabored, lung sounds clear to auscultation bilaterally, no rales or wheezing. GI: normoactive bowel sounds, abdomen soft, nontender on palpation, nondistended. Extremities: no clubbing, cyanosis or edema. Objective Objective Clinical Data: Abnormal lab results 07/17/19 07/17/19 Range/Units 06:35 06:35 WBC 16.76 H (4.4-10.8) k/cumm Hgb 10.6 L (12.0-15.5) g/dL MCH 24.1 L (27.0-33.0) pg MCHC 29.4 L (32.0-36.0) g/dL RDW 17.6 H (11.7-14.6) % Absolute Neutrophils 13.17 H (1.2-6.7) k/cumm Absolute Monocytes 1.14 H (0.11-0.7) k/cumm Carbon Dioxide 34.5 H (21.0-32.0) mmol/L BUN 90 H* D (7-18) mg/dL Creatinine 2.14 H (0.55-1.02) mg/dL Glucose 207 H D (70-100) mg/dL Vital Signs Temperature 36.4 C L 07/17/19 07:25 Temperature Source Tympanic 07/17/19 07:25 Pulse 58 L 07/17/19 08:59 Pulse Rhythm Regular 07/17/19 07:49 Pulse 69 07/13/19 13:30 Respiratory Rate 18 07/17/19 08:59 Respiratory Effort 07/17/19 07:49 Respiratory Depth Normal 07/17/19 07:49 Respiratory Pattern Normal 07/17/19 07:49 Blood Pressure 168/69 H 07/17/19 07:25 Blood Pressure Mean 61 07/13/19 15:30 Blood Pressure Position Sitting 07/13/19 11:03 Pulse Oximetry 100 07/17/19 08:59 Oxygen Delivery Method Nasal Cannula 07/17/19 08:54 Oxygen Flow Rate 1 07/17/19 08:54 Pain Level 8 07/17/19 07:25 Comment 07/17/19 07:25 Intake & Output 07/16/19 07/17/19 07/17/19 23:59 11:59 23:59 Intake Total 240 / 485 360 / 360 Balance 240 / 485 360 / 360 Weight 81.2 kg Intake: Oral 240 / 480 360 / 360 Other: Urine Color Yellow Urine Appearance Clear Clear Urine Odor Normal Voiding Methods Toilet Toilet Laboratory Results WBC 16.76 k/cumm (4.4-10.8) H 07/17/19 06:35 RBC 4.39 m/cumm (4.00-5.20) 07/17/19 06:35 Hgb 10.6 g/dL (12.0-15.5) L 07/17/19 06:35 Hct 36.1 % (36.0-46.0) 07/17/19 06:35 MCV 82.2 fL (80-95) 07/17/19 06:35 MCH 24.1 pg (27.0-33.0) L 07/17/19 06:35 MCHC 29.4 g/dL (32.0-36.0) L 07/17/19 06:35 RDW 17.6 % (11.7-14.6) H 07/17/19 06:35 Plt Count 336 x1000/uL (130-400) 07/17/19 06:35 MPV 10.2 fL (8.0-11.0) 07/17/19 06:35 Abs Immat Gran (auto) Cancelled 07/13/19 12:10 Immature Gran % 2.1 07/17/19 06:35 Neutrophils % 78.6 07/17/19 06:35 Band Neutrophils % Cancelled 07/13/19 12:10 Lymphocytes % 12.3 07/17/19 06:35 Atypical Lymphs % Cancelled 07/13/19 12:10 Monocytes % 6.8 07/17/19 06:35 Eosinophils % 0.0 07/17/19 06:35 Basophils % 0.2 07/17/19 06:35 Metamyelocytes % Cancelled 07/13/19 12:10 Myelocytes % Cancelled 07/13/19 12:10 Promyelocytes % Cancelled 07/13/19 12:10 Absolute Neutrophils 13.17 k/cumm (1.2-6.7) H 07/17/19 06:35 Absolute Lymphocytes 2.06 k/cumm (1.2-3.4) 07/17/19 06:35 Absolute Monocytes 1.14 k/cumm (0.11-0.7) H 07/17/19 06:35 Absolute Eosinophils 0.00 k/cumm (0.0-0.7) 07/17/19 06:35 Absolute Basophils 0.03 k/cumm (0.0-0.2) 07/17/19 06:35 Nucleated RBCs Cancelled 07/13/19 12:10 Differential Comment Rbc morph reviewed 07/14/19 06:47 Other Cell Type Cancelled 07/13/19 12:10 RBC Morphology See below 07/14/19 06:47 Polychromasia Present 07/14/19 06:47 Hypochromasia 2+ 07/14/19 06:47 Poikilocytosis Cancelled 07/13/19 12:10 Basophilic Stippling Cancelled 07/13/19 12:10 Anisocytosis 2+ 07/14/19 06:47 Microcytosis 2+ 07/14/19 06:47 Macrocytosis Cancelled 07/13/19 12:10 Spherocytes Cancelled 07/13/19 12:10 Target Cells Cancelled 07/13/19 12:10 Tear Drop Cells Cancelled 07/13/19 12:10 Ovalocytes Cancelled 07/13/19 12:10 Stomatocytes Cancelled 07/13/19 12:10 [place] Bodies Cancelled 07/13/19 12:10 Meena Cells Cancelled 07/13/19 12:10 Acanthocytes (Spur) Cancelled 07/13/19 12:10 Schistocytes Cancelled 07/13/19 12:10 Sodium 141 mmol/L (136-145) 07/17/19 06:35 Potassium 4.6 mmol/L (3.5-5.1) 07/17/19 06:35 Chloride 99 mmol/L (98-107) 07/17/19 06:35 Carbon Dioxide 34.5 mmol/L (21.0-32.0) H 07/17/19 06:35 Anion Gap 7.5 mmol/L (3-11) 07/17/19 06:35 BUN 90 mg/dL (7-18) H* D 07/17/19 06:35 Creatinine 2.14 mg/dL (0.55-1.02) H 07/17/19 06:35 Estimated GFR/1.73 m2 22.35 (mL/min/1.73m2) 07/17/19 06:35 Glucose 207 mg/dL (70-100) H D 07/17/19 06:35 Calcium 9.4 mg/dL (8.5-10.1) 07/17/19 06:35 Magnesium 2.1 mg/dL (1.8-2.4) 07/17/19 06:35 Total Bilirubin 0.3 mg/dL (0.2-1.0) 07/13/19 12:30 AST 18 U/L (15-37) 07/13/19 12:30 ALT 20 U/L (14-59) 07/13/19 12:30 Alkaline Phosphatase 98 U/L (46-116) 07/13/19 12:30 Troponin I < 0.05 ng/mL (0.00-0.06) 07/16/19 17:07 NT-Pro-B Natriuret Pep 570 pg/mL (-299) H 07/13/19 12:30 Total Protein 8.2 g/dL (6.4-8.2) 07/13/19 12:30 Albumin 3.2 g/dL (3.4-5.0) L 07/13/19 12:30 TSH 0.51 uIU/mL (0.36-3.74) 07/16/19 06:40
[2019-07-17 16:04] VITALS: BP 164/69; PULSE 66; RESP 18; TEMP 36.6; O2SAT 97
[2019-07-17 16:47] VITALS: BP 154/54; PULSE 61; RESP 18; TEMP 36.6; O2SAT 92
--- NOTE | 2019-07-17 17:15 | PDOC.CMPRO ---
- If Service Date Differs Date of service: 07/17/19 Time of Service: 17:15 Care Management Progress Note S/O:Karina was sitting up in a chair when CM met with her. She was able to ambulate with PT today anticipate she will be able to return home with home in the next 24 hours. A: Karina is a 79 year old woman admitted to [facility] on 07/13/19 with obstructive bronchitis with exacerbation P: Karina will be discharged home when medically ready per provider. She does not currently have acute services through home health anticipate a new referral if indicated. CM to continue to provide support to patient, family, discharged planning and disposition.
[2019-07-17 17:21] LABS: Glucose 395 mg/dL (70-100)
[2019-07-17] MEDS: Atorvastatin 40 MG TAB PO (22:04)
[2019-07-17] MEDS: Insulin Glargine 300 UNITS/3 ML PEN 55 UNITS SC (22:05)
[2019-07-17 22:34] VITALS: RESP 1; RESP 8
[2019-07-18] VITALS (8 sets, daily range): BP systolic 127–167; BP diastolic 49–61; PULSE 60–65; RESP 2–20; TEMP 36.2–36.8; O2SAT 92–100
[2019-07-18] MEDS: Albuterol/Ipratropium 3 ML UPD VIAL UPD ×4 (04:08→22:05)
[2019-07-18 07:16] LABS: Abs Immature Grans 0.44 k/cumm (0.0-0.09); Absolute Basophil Count 0.02 k/cumm (0.0-0.2); Absolute Monocyte Count 1.35 k/cumm (0.11-0.7); Absolute Neutrophil Count 15.52 k/cumm (1.2-6.7); Basophils % 0.1; HCT 35.4 % (36.0-46.0); HGB 10.6 g/dL (12.0-15.5); Immature Grans % 2.3; Lymphocytes % 9.9; Mean Corp. HGB Concentration 29.9 g/dL (32.0-36.0); Mean Corpuscular Hemoglobin 24.4 pg (27.0-33.0); Mean Corpuscular Volume 81.6 fL (80-95); Mean Platelet Volume 10.1 fL (8.0-11.0); Neutrophils % 80.7; Platelet Count 345 x1000/uL (130-400); RBC 4.34 m/cumm (4.00-5.20); RBC Distribution Width 17.7 % (11.7-14.6); White Blood Cell Count 19.23 k/cumm (4.4-10.8)
[2019-07-18 07:40] LABS: Anion Gap 8.1 mmol/L (3-11); CO2 31.9 mmol/L (21.0-32.0); CREATININE 2.05 mg/dL (0.55-1.02); Calcium 9.2 mg/dL (8.5-10.1); Chloride 100 mmol/L (98-107); Estimated GFR 23.48 (mL/min/1.73m2); Glucose 194 mg/dL (70-100); Magnesium 2.2 mg/dL (1.8-2.4); Potassium 4.4 mmol/L (3.5-5.1); Sodium 140 mmol/L (136-145)
[2019-07-18 07:58] LABS: BUN 84 mg/dL (7-18)
[2019-07-18] MEDS: Insulin Aspart 300 UNITS/3 ML PEN SC ×4 (08:20→22:06)
[2019-07-18] MEDS: Normal Saline Flush 10 ML SYR IVP (08:57)
[2019-07-18] MEDS: Normal Saline 1,000 ML 100 ML IV (08:59)
[2019-07-18] MEDS: busPIRone 5 MG TAB 7.5 MG PO (09:00)
[2019-07-18] MEDS: Cholecalciferol (Vitamin D3) 1,000 UNIT TAB 1000 UNITS PO (09:00)
[2019-07-18] MEDS: Gabapentin 300 MG CAP 900 MG PO ×3 (09:00→20:14)
[2019-07-18] MEDS: Ferrous Sulfate 325 MG TAB PO (09:01)
[2019-07-18] MEDS: Isosorbide Dinitrate 10 MG TAB 30 MG PO ×2 (09:01→15:55)
[2019-07-18] MEDS: Metoprolol CR 25 MG TABCR PO (09:01)
[2019-07-18] MEDS: Doxycycline Hyclate 100 MG CAP PO ×2 (09:01→20:15)
[2019-07-18] MEDS: Apixaban 2.5 MG TAB PO ×2 (09:02→20:15)
[2019-07-18] MEDS: Pantoprazole 40 MG TABCR PO ×2 (09:03→20:15)
[2019-07-18] MEDS: amLODIPine 2.5 MG TAB PO (09:03)
[2019-07-18] MEDS: hydrALAZINE 25 MG TAB PO ×3 (09:03→20:15)
[2019-07-18] MEDS: predniSONE 20 MG TAB 40 MG PO ×2 (09:03→20:15)
[2019-07-18] MEDS: PARoxetine 20 MG TAB PO (09:03)
[2019-07-18] MEDS: Insulin Glargine 300 UNITS/3 ML PEN 70 UNITS SC (09:06)
[2019-07-18] MEDS: Clopidogrel 75 MG TAB PO (09:06)
[2019-07-18] MEDS: IRON SUCROSE COMPLEX 300 MG in Normal Saline 250 ML 167 MG IVPB (09:53)
--- NOTE | 2019-07-18 11:40 | W.PM.PROGNOT ---
Date of Service Date of service: 07/18/19 Time of Service: 11:40 Assessment and Plan Assessment and plan (1) Obstructive chronic bronchitis with exacerbation: Status: Acute Assessment and plan: She is improving from a respiratory standpoint. Her white blood cell count remains elevated at 19.23 today. She is on prednisone, continue to follow CBC. She remains afebrile. Blood cultures with no growth at 96 hours. Sputum culture grew normal kurt. Complete Doxycycline course today for a total of 5 days. Continue oral steroids. Continue scheduled nebulizer treatments. (2) COPD with acute exacerbation: Status: Inactive Assessment and plan: Improving. As above, in the setting of Bronchitis. Continue nebulizer treatments, doxycycline, prednisone. (3) Paroxysmal atrial fibrillation: Status: Acute Assessment and plan: Heart sounds regular, nontachycardic, continue apixiban and metoprolol. (4) Stroke due to embolism: Status: Acute Assessment and plan: Previous history of CVA. Continue apixaban. (5) Functional tremor: Status: Acute Assessment and plan: Chronic right hand tremor, she is followed by neurology. Will follow up as scheduled with neurology. (6) Chronic diastolic CHF (congestive heart failure): Status: Chronic Assessment and plan: Hold lasix in the setting of elevated BUN and creatinine. Give gentle IV fluids. Repeat BMP in the morning. (7) CKD (chronic kidney disease): Status: Acute Assessment and plan: With elevated BUN and creatinine today. BUN elevated to 84, creatinine at 2.05. Give gentle IV fluid hydration. Repeat labs tomorrow morning. She received venofer per outpatient nephrology orders. She will need to follow up with Nephrology as scheduled. She does not want dialysis in the future. (8) Chest pain: Status: Acute Assessment and plan: Resolved today. Her EKG showed no acute changes. Troponins cycled and less than 0.05. PPI dosing increased, continue at current dose. Continue to monitor. (9) DVT prophylaxis: Status: Acute Assessment and plan: Therapeutic on apixaban. (10) Discharge planning issues: Status: Acute Assessment and plan: She is a DNR/DNI. Lives with her daughter in [facility]. Physical therapy recommends home PT services. This case was discussed with Dr. Lopez who is in agreement. Subjective Subjective Interval history since last seen: Karina reports feeling better today. She denies shortness of breath, coughing or wheezing. She no longer has chest pain or pressure. She is eating and drinking and tolerating her diet. She denies nausea, vomiting or diarrhea. She denies dizziness or lightheadedness. She denies dysuria or hematuria. Her weakness is improving. Her renal function continues to be worse than baseline, she is back on IV fluids. She states she is not interested in dialysis. Exam Narrative Exam Narrative: General: elderly female, laying on her left side in bed, alert and oriented, pleasant and cooperative, in NAD. She answers questions appropriately. HEENT: normocephalic, atruamatic, pupils equal and round, mucous membranes moist. Neck: supple, no JVD. Cardiovascular: heart has regular rate and rhythm, no murmur appreciated. Respiratory: respirations even and unlabored, lung sounds clear to auscultation bilaterally, no rales or wheezing. GI: normoactive bowel sounds, abdomen soft, nontender on palpation, nondistended. Extremities: no clubbing, cyanosis or edema. Objective Objective Clinical Data: Abnormal lab results 07/17/19 07/18/19 07/18/19 Range/Units 17:09 06:45 06:45 WBC 19.23 H (4.4-10.8) k/cumm Hgb 10.6 L (12.0-15.5) g/dL Hct 35.4 L (36.0-46.0) % MCH 24.4 L (27.0-33.0) pg MCHC 29.9 L (32.0-36.0) g/dL RDW 17.7 H (11.7-14.6) % Absolute Neutrophils 15.52 H (1.2-6.7) k/cumm Absolute Monocytes 1.35 H (0.11-0.7) k/cumm BUN 84 H* (7-18) mg/dL Creatinine 2.05 H (0.55-1.02) mg/dL Glucose 395 H D 194 H D (70-100) mg/dL Vital Signs Temperature 36.2 C L 07/18/19 08:19 Temperature Source Tympanic 07/18/19 08:19 Pulse 65 07/18/19 09:39 Pulse Rhythm Regular 07/18/19 06:16 Pulse 69 07/13/19 13:30 Respiratory Rate 18 07/18/19 09:39 Respiratory Effort 07/18/19 06:16 Respiratory Depth Normal 07/18/19 06:16 Respiratory Pattern Normal 07/18/19 06:16 Blood Pressure 167/60 H 07/18/19 08:19 Blood Pressure Mean 61 07/13/19 15:30 Blood Pressure Position Sitting 07/13/19 11:03 Pulse Oximetry 99 07/18/19 09:39 Oxygen Delivery Method Room Air 07/18/19 09:30 Oxygen Flow Rate 0 07/18/19 09:30 Pain Level 0 07/18/19 08:19 Comment 07/18/19 08:19 Intake & Output 07/17/19 07/17/19 07/18/19 11:59 23:59 11:59 Intake Total 360 / 1600 1240 / 1600 Output Total 350 / 350 450 / 450 Balance 360 / 1250 890 / 1250 -450 / -450 Weight 81.2 kg 80.6 kg Intake: IV 1000 / 1000 Oral 360 / 600 240 / 600 Output: Urine 350 / 350 450 / 450 Other: Urine Color Yellow Yellow Urine Appearance Clear Clear Clear Voiding Methods Toilet Toilet Toilet Laboratory Results WBC 19.23 k/cumm (4.4-10.8) H 07/18/19 06:45 RBC 4.34 m/cumm (4.00-5.20) 07/18/19 06:45 Hgb 10.6 g/dL (12.0-15.5) L 07/18/19 06:45 Hct 35.4 % (36.0-46.0) L 07/18/19 06:45 MCV 81.6 fL (80-95) 07/18/19 06:45 MCH 24.4 pg (27.0-33.0) L 07/18/19 06:45 MCHC 29.9 g/dL (32.0-36.0) L 07/18/19 06:45 RDW 17.7 % (11.7-14.6) H 07/18/19 06:45 Plt Count 345 x1000/uL (130-400) 07/18/19 06:45 MPV 10.1 fL (8.0-11.0) 07/18/19 06:45 Abs Immat Gran (auto) Cancelled 07/13/19 12:10 Immature Gran % 2.3 07/18/19 06:45 Neutrophils % 80.7 07/18/19 06:45 Band Neutrophils % Cancelled 07/13/19 12:10 Lymphocytes % 9.9 07/18/19 06:45 Atypical Lymphs % Cancelled 07/13/19 12:10 Monocytes % 7.0 07/18/19 06:45 Eosinophils % 0.0 07/18/19 06:45 Basophils % 0.1 07/18/19 06:45 Metamyelocytes % Cancelled 07/13/19 12:10 Myelocytes % Cancelled 07/13/19 12:10 Promyelocytes % Cancelled 07/13/19 12:10 Absolute Neutrophils 15.52 k/cumm (1.2-6.7) H 07/18/19 06:45 Absolute Lymphocytes 1.90 k/cumm (1.2-3.4) 07/18/19 06:45 Absolute Monocytes 1.35 k/cumm (0.11-0.7) H 07/18/19 06:45 Absolute Eosinophils 0.00 k/cumm (0.0-0.7) 07/18/19 06:45 Absolute Basophils 0.02 k/cumm (0.0-0.2) 07/18/19 06:45 Nucleated RBCs Cancelled 07/13/19 12:10 Differential Comment Rbc morph reviewed 07/14/19 06:47 Other Cell Type Cancelled 07/13/19 12:10 RBC Morphology See below 07/14/19 06:47 Polychromasia Present 07/14/19 06:47 Hypochromasia 2+ 07/14/19 06:47 Poikilocytosis Cancelled 07/13/19 12:10 Basophilic Stippling Cancelled 07/13/19 12:10 Anisocytosis 2+ 07/14/19 06:47 Microcytosis 2+ 07/14/19 06:47 Macrocytosis Cancelled 07/13/19 12:10 Spherocytes Cancelled 07/13/19 12:10 Target Cells Cancelled 07/13/19 12:10 Tear Drop Cells Cancelled 07/13/19 12:10 Ovalocytes Cancelled 07/13/19 12:10 Stomatocytes Cancelled 07/13/19 12:10 [place] Bodies Cancelled 07/13/19 12:10 Meena Cells Cancelled 07/13/19 12:10 Acanthocytes (Spur) Cancelled 07/13/19 12:10 Schistocytes Cancelled 07/13/19 12:10 Sodium 140 mmol/L (136-145) 07/18/19 06:45 Potassium 4.4 mmol/L (3.5-5.1) 07/18/19 06:45 Chloride 100 mmol/L (98-107) 07/18/19 06:45 Carbon Dioxide 31.9 mmol/L (21.0-32.0) 07/18/19 06:45 Anion Gap 8.1 mmol/L (3-11) 07/18/19 06:45 BUN 84 mg/dL (7-18) H* 07/18/19 06:45 Creatinine 2.05 mg/dL (0.55-1.02) H 07/18/19 06:45 Estimated GFR/1.73 m2 23.48 (mL/min/1.73m2) 07/18/19 06:45 Glucose 194 mg/dL (70-100) H D 07/18/19 06:45 Calcium 9.2 mg/dL (8.5-10.1) 07/18/19 06:45 Magnesium 2.2 mg/dL (1.8-2.4) 07/18/19 06:45 Total Bilirubin 0.3 mg/dL (0.2-1.0) 07/13/19 12:30 AST 18 U/L (15-37) 07/13/19 12:30 ALT 20 U/L (14-59) 07/13/19 12:30 Alkaline Phosphatase 98 U/L (46-116) 07/13/19 12:30 Troponin I < 0.05 ng/mL (0.00-0.06) 07/16/19 17:07 NT-Pro-B Natriuret Pep 570 pg/mL (-299) H 07/13/19 12:30 Total Protein 8.2 g/dL (6.4-8.2) 07/13/19 12:30 Albumin 3.2 g/dL (3.4-5.0) L 07/13/19 12:30 TSH 0.51 uIU/mL (0.36-3.74) 07/16/19 06:40
--- NOTE | 2019-07-18 14:59 | INDS_ITS ---
Date of service: 07/18/19 Time of Service: 14:59 PT Notes Inpatient Physical Therapy Discharge Summary Dates: 07/18/2019 Dates of Service: 07/14/2019 through 07/17/2019 This is a clinical summary of care provided on the duration of dates listed above. No charge was made in the completion of this documentation. Referring Doctor: Edelmira Oconnor NP PT Orders: PT CONSULT: Limited Ability Precautions: Fall. Standard. Activity as tolerated. Patient Profile/Admitting Diagnosis: Patient is a 79-year-old female with past medical history significant for left cardioembolic stroke admitted to the ED on 07/13/2019 with chief presentation of hypoxia and tachypnea. Patient is obstructive chronic bronchitis with exacerbation, chronic obstructive pulmonary disease exacerbation, paroxysmal atrial fibrillation, functional tremor, and chronic kidney disease. PMHX: Medical History CAD (coronary artery disease) (Chronic) Carotid stenosis (Acute) s/p bilateral CEA Chronic diastolic CHF (congestive heart failure) (Chronic) Chronic low back pain (Acute) CKD (chronic kidney disease) (Acute) COPD (chronic obstructive pulmonary disease) (Chronic) Depression with anxiety (Acute) Diabetes mellitus (Chronic) 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 mellitus (Acute) Diverticulitis (Chronic) GERD (gastroesophageal reflux disease) (Chronic) History of pulmonary embolism (Acute) Hyperlipidemia (Acute) Hypertension (Chronic) Hypothyroidism (Chronic) Obesity (BMI 30.0-34.9) (Chronic) DANYELLE (obstructive sleep apnea) (Chronic) Paroxysmal atrial fibrillation (Acute) Peripheral vascular disease (Chronic) Rheumatoid arthritis (Chronic) Surgical History H/O cardiac catheterization (Chronic) [address] History of left-sided carotid endarterectomy (Acute) History of right-sided carotid endarterectomy (Acute) S/P arterial stent (Acute) leg x2 S/P arteriovenous (AV) fistula creation (Acute) [facility] in [place] Social History/Home Situation: Patient lives with her daughter and her in a 1 floor house and [facility] without steps to enter. Her daughter works during the day and Ms. Bean goes to [employer] [facility] daycare 5 times a week. Equipment Owned/DME: She has a wheelchair, front wheeled walker, and cane but she does not use them. She did however travelled recently and used his wheelchair during that time. Subjective: NT Objective: General Observation: NT Mental Status: NT Pain: NT ROM: Right Upper Extremity: Shoulder Flexion WFL. Shoulder abduction WFL. Elbow flexion WFL. Wrist flexion WFL. Functional opening and closing of hand WFL. Left Upper Extremity: Shoulder Flexion WFL. Shoulder abduction WFL. Elbow flexion WFL. Wrist flexion WFL. Functional opening and closing of hand WFL. Right Lower Extremity: Hip flexion WFL. Hip abduction WFL. Knee flexion WFL. Ankle dorsiflexion WFL. Ankle plantarflexion WFL. Left Lower Extremity: Hip flexion WFL. Hip abduction WFL. Knee flexion WFL. Ankle dorsiflexion WFL. Ankle plantarflexion WFL. Strength: Right Upper Extremity: Shoulder flexors 4/5. Shoulder abductors 4/5. Elbow flexors 5/5. Elbow extensors 5/5. Patcher Bowling Ball strong. Left Upper Extremity: Shoulder flexors 4/5. Shoulder abductors 4/5. Elbow flexors 5/5. Elbow extensors 5/5. Patcher Bowling Ball strong. Right Lower Extremity: Hip flexors 4/5. Hip abductors 5/5. Knee flexors 5/5. Knee extensors 4/5. Ankle dorsiflexors 4-/5. Ankle plantarflexors 5/5. Left Lower Extremity: Hip flexors 4/5. Hip abductors 5/5. Knee flexors 5/5. Knee extensors 4/5. Ankle dorsiflexors 4-/5. Ankle plantarflexors 5/5. Bed Mobility/Transfers: Rolling independent Supine to sit independent Sit to supine independent Sit to stand independent Stand to sit independent Bed to chair independent Chair to bed independent Gait: Patient ambulated 200+100 feet level surface ambulation with FWW independently requiring no ambulatory device with 88-96% oxygen saturation on room air. Balance: Static Sitting: Normal Dynamic Sitting: Normal Static Standing: Normal Dynamic Standing: Good Special Tests: Mobility Limitations Standardized Measure [facility] AM-PAC 6 clicks Basic Mobility Inpatient Short Form: Raw Score: 24 CMS Score: 0% deficit Assessment:Patient is a 79-year-old female with past medical history significant for left cardioembolic stroke admitted to the ED on 07/13/2019 with chief presentation of hypoxia and tachypnea. Patient is obstructive chronic bronchitis with exacerbation, chronic obstructive pulmonary disease exacerbation, paroxysmal atrial fibrillation, functional tremor, and chronic kidney disease. Patient is now at her highest functional level. She is cared for by her daughter, and attends organized activities during the day while her daughter is at work. She is motivated to return home with her daughter as previously. Her prognosis is good. Patient continues to present with clinical signs and symptoms consistent with current/admitting diagnoses that have resulted to mobility limitations, gait instability, generalized weakness, and impairment of motor control as demonstrated by the following impairment level findings: 1. Impaired standing tolerance Impairments continue to contribute to the following functional limitations: 1. Increased fall risk Goals: Goals X1 week 1. Supine-Sit independent MET 2. Sit-Supine independent MET 3. Sit-Stand independent MET 4. Stand-Sit independent MET 5. Bed-Chair independent MET 6. Chair-Bed independent MET 7. Independent gait on level surface with use of least restrictive device for at least 300 feet without report of pain nor dyspnea MET 8. Independent stair negotiation while holding onto bilateral rails for at least 10 steps without report of pain nor dyspnea MET 9. Independent with home exercise program MET 10. Good static and dynamic standing balance/tolerance is MET DISCHARGE RECOMMENDATIONS: Patient is to be discharged under the care of her daughter after all of the above goals are met and she is medically stable. Patient will benefit from home health PT services in order to progress mobility level using least restrictive assistive ambulatory device, assess home safety, identify additional equipment needs, and establish a functional maintenance program that will increase ability of patient to remain at home. TREATMENT CODE/TIME: VT. Thank you very much for this referral. Theresa Pro PT, DPT, CLT [facility]
[2019-07-18] MEDS: Acetaminophen 325 MG TAB PO ×2 (15:31→20:14)
--- NOTE | 2019-07-18 17:27 | W.DIABETESNO ---
Date of service: 07/18/19 Time of Service: 17:27 Diabetes Note NOTE: Follow up for Karina Bean who is hospitalized with Obstructive Chronic Bronchitis taking prednisone which is causing significant hyperglycemia. Iron status is improving hemoglobin now up to 10.6. Met with Karina to review her diabetes self management at home. SHe states she takes her own insulin, but her daughter cooks most of the meals. She does monitor her blood sugars but does not recall how they run at home. She feels she knows how to take care of her diabetes. Offered follow up support as she feels the need once discharged. Time Spent in Nutritional Counseling and Treatment: 7 minutes face to face
--- NOTE | 2019-07-18 18:21 | CMPROGNOTE_ITS ---
- If Service Date Differs Date of service: 07/18/19 Time of Service: 18:21 Care Management Progress Note S/O:Karina was laying in bed when CM met with her. She indicated that she was tired and hoped to be able to take a little nap. She acknowledged that she feels much better but not quite good enough to go home. A: Karina is a 79 year old woman admitted to [facility] on 07/13/19 with obstructive bronchitis with exacerbation P: Karina will be discharged home when medically ready per provider. She does not currently have acute services through home health anticipate a new referral if indicated. CM to continue to provide support to patient, family, discharged planning and disposition.
[2019-07-18] MEDS: Atorvastatin 40 MG TAB PO (22:05)
[2019-07-18] MEDS: Insulin Glargine 300 UNITS/3 ML PEN 55 UNITS SC (22:07)
[2019-07-18] MEDS: Normal Saline 1,000 ML 75 ML IV (22:19)
[2019-07-19 00:15] VITALS: BP 139/53; PULSE 73; RESP 18; TEMP 36.4; O2SAT 96
[2019-07-19 07:36] LABS: HCT 33.5 % (36.0-46.0); HGB 9.9 g/dL (12.0-15.5); Mean Corp. HGB Concentration 29.6 g/dL (32.0-36.0); Mean Corpuscular Hemoglobin 24.4 pg (27.0-33.0); Mean Corpuscular Volume 82.7 fL (80-95); Mean Platelet Volume 10.3 fL (8.0-11.0); Platelet Count 295 x1000/uL (130-400); RBC 4.05 m/cumm (4.00-5.20); White Blood Cell Count 21.13 k/cumm (4.4-10.8)
[2019-07-19 07:40] LABS: Anion Gap 6.4 mmol/L (3-11); BUN 69 mg/dL (7-18); CO2 29.6 mmol/L (21.0-32.0); CREATININE 1.69 mg/dL (0.55-1.02); Calcium 8.7 mg/dL (8.5-10.1); Chloride 106 mmol/L (98-107); Estimated GFR 29.34 (mL/min/1.73m2); Glucose 192 mg/dL (70-100); Magnesium 2.2 mg/dL (1.8-2.4); Potassium 4.9 mmol/L (3.5-5.1); Sodium 142 mmol/L (136-145)
[2019-07-19 07:50] VITALS: BP 162/60; PULSE 76; RESP 20; TEMP 36.6; O2SAT 96
[2019-07-19 07:57] LABS: Absolute Lymphocyte Count 2.75 k/cumm (1.2-3.4); Absolute Monocyte Count 1.69 k/cumm (0.11-0.7); Absolute Neutrophil Count 16.27 k/cumm (1.2-6.7)
[2019-07-19] MEDS: predniSONE 20 MG TAB 40 MG PO ×2 (08:18→20:47)
[2019-07-19] MEDS: Clopidogrel 75 MG TAB PO (08:18)
[2019-07-19] MEDS: hydrALAZINE 25 MG TAB PO ×3 (08:18→20:47)
[2019-07-19] MEDS: Cholecalciferol (Vitamin D3) 1,000 UNIT TAB 1000 UNITS PO (08:19)
[2019-07-19] MEDS: Isosorbide Dinitrate 10 MG TAB 30 MG PO ×2 (08:20→16:50)
[2019-07-19] MEDS: busPIRone 5 MG TAB 7.5 MG PO (08:20)
[2019-07-19] MEDS: PARoxetine 20 MG TAB PO (08:20)
[2019-07-19] MEDS: Gabapentin 300 MG CAP 900 MG PO ×3 (08:21→20:47)
[2019-07-19] MEDS: Metoprolol CR 25 MG TABCR PO (08:21)
[2019-07-19] MEDS: amLODIPine 2.5 MG TAB PO (08:23)
[2019-07-19] MEDS: Pantoprazole 40 MG TABCR PO ×2 (08:23→20:47)
[2019-07-19] MEDS: Ferrous Sulfate 325 MG TAB PO (08:23)
[2019-07-19] MEDS: Apixaban 2.5 MG TAB PO ×2 (08:23→20:47)
[2019-07-19] MEDS: Insulin Aspart 300 UNITS/3 ML PEN SC ×4 (08:24→20:51)
[2019-07-19] MEDS: Insulin Glargine 300 UNITS/3 ML PEN 70 UNITS SC (09:51)
[2019-07-19 10:12] VITALS: RESP 1
[2019-07-19] MEDS: Albuterol/Ipratropium 3 ML UPD VIAL UPD ×3 (10:12→20:48)
[2019-07-19] MEDS: Normal Saline Flush 10 ML SYR IVP (10:50)
[2019-07-19] MEDS: Furosemide 40 MG TAB PO (12:43)
--- NOTE | 2019-07-19 13:33 | W.PM.PROGNOT ---
Date of Service Date of service: 07/19/19 Time of Service: 13:34 Assessment and Plan Assessment and plan (1) Obstructive chronic bronchitis with exacerbation: Start date: 07/19/19 Start time: 13:38 Status: Acute Assessment and plan: She is improving from a respiratory standpoint. Her white blood cell count remains elevated at 21.13 today. She is on prednisone, continue to follow CBC. She remains afebrile. Blood cultures with no growth at 120 hours. Sputum culture grew normal kurt. Doxy completed. (2) COPD with acute exacerbation: Start date: 07/19/19 Start time: 13:39 Status: Inactive Assessment and plan: Improving. As above, in the setting of Bronchitis. Continue nebulizer treatments, and prednisone taper. (3) Paroxysmal atrial fibrillation: Start date: 07/19/19 Start time: 13:41 Status: Acute Assessment and plan: Heart sounds regular, nontachycardic, continue apixiban and metoprolol. (4) Stroke due to embolism: Start date: 07/19/19 Start time: 13:41 Status: Acute Assessment and plan: Previous history of CVA. Continue apixaban. (5) Functional tremor: Start date: 07/19/19 Start time: 13:41 Status: Acute Assessment and plan: Chronic right hand tremor, she is followed by neurology. Will follow up as scheduled with neurology. (6) DARION (acute kidney injury): Start date: 07/19/19 Start time: 13:42 Status: Inactive Assessment and plan: Evidenced by BUN increase from 58 to 73 to 90. Today 69. with baseline creatinine 1.69. IVF dcd as patient does have CHF. One dose of lasix given, monitor BMP in am and dose with lasix as kidney function improves. (7) Chronic diastolic CHF (congestive heart failure): Start date: 07/19/19 Start time: 13:41 Status: Chronic Assessment and plan: Lasix was held and IVF started due to DARION. IVF dcd. One dose of lasix given. No jvd, edema or symptoms of congestive HF. monitor fluid status and labs. (8) CKD (chronic kidney disease): Start date: 07/19/19 Start time: 13:45 Status: Acute Assessment and plan: Acute on chronic with elevated BUN and creatinine today. BUN elevated to 84, creatinine at 2.05. Give gentle IV fluid hydration. Repeat labs tomorrow morning. She received venofer per outpatient nephrology orders. She will need to follow up with Nephrology as scheduled. She does not want dialysis in the future. (9) Chest pain: Start date: 07/19/19 Start time: 13:45 Status: Acute Assessment and plan: Resolved. No complaint of chest pain (10) DVT prophylaxis: Start date: 07/19/19 Start time: 13:46 Status: Acute Assessment and plan: Therapeutic on apixaban. (11) Discharge planning issues: Start date: 07/19/19 Start time: 13:46 Status: Acute Assessment and plan: She is a DNR/DNI. Lives with her daughter in [facility]. Physical therapy recommends home PT services. Also spends her day at [place]. This case was discussed with Dr. Choi who is in agreement. Subjective Subjective Patient reports: no new complaints Interval history since last seen: Lying in bed. no complaints . Exam Narrative Exam Narrative: General: elderly female, laying on her left side in bed, alert and oriented, pleasant and cooperative, in NAD. She answers questions appropriately. HEENT: normocephalic, atruamatic, pupils equal and round, mucous membranes moist. Neck: supple, no JVD. Cardiovascular: heart has regular rate and rhythm, no murmur appreciated. Respiratory: respirations even and unlabored, lung sounds clear to auscultation bilaterally, no rales or wheezing. GI: normoactive bowel sounds, abdomen soft, nontender on palpation, nondistended. Extremities: no clubbing, cyanosis or edema. Objective Objective Clinical Data: Abnormal lab results 07/19/19 07/19/19 Range/Units 06:35 06:35 WBC 21.13 H (4.4-10.8) k/cumm Hgb 9.9 L (12.0-15.5) g/dL Hct 33.5 L (36.0-46.0) % MCH 24.4 L (27.0-33.0) pg MCHC 29.6 L (32.0-36.0) g/dL RDW 18.0 H (11.7-14.6) % Absolute Neutrophils 16.27 H (1.2-6.7) k/cumm Absolute Monocytes 1.69 H (0.11-0.7) k/cumm BUN 69 H (7-18) mg/dL Creatinine 1.69 H (0.55-1.02) mg/dL Glucose 192 H (70-100) mg/dL Vital Signs Temperature 36.6 C 07/19/19 07:50 Temperature Source Tympanic 07/19/19 07:50 Pulse 76 07/19/19 07:50 Pulse Rhythm Regular 07/19/19 09:01 Pulse 69 07/13/19 13:30 Respiratory Rate 20 07/19/19 07:50 Respiratory Effort Non-Labored 07/19/19 09:01 Respiratory Depth Normal 07/19/19 09:01 Respiratory Pattern Normal 07/19/19 09:01 Blood Pressure 162/60 H 07/19/19 07:50 Blood Pressure Mean 61 07/13/19 15:30 Blood Pressure Position Sitting 07/13/19 11:03 Pulse Oximetry 96 07/19/19 07:50 Oxygen Delivery Method Room Air 07/19/19 07:50 Oxygen Flow Rate 0 07/19/19 07:50 Pain Level 0 07/19/19 07:50 Comment 07/18/19 08:19 Intake & Output 07/18/19 07/19/19 07/19/19 23:59 11:59 23:59 Intake Total 1540 / 2055 2422.5 / 2422.5 Balance 1540 / 1605 2422.5 / 2422.5 Weight 81.6 kg Intake: IV 1000 / 1275 942.5 / 942.5 Oral 540 / 780 1480 / 1480 Other: Urine Appearance Clear Clear Comment pt usually misses the hat and voids in the toilet pt voiding independently in the toilet Stool Size Small Stool Characteristics Soft Formed Voiding Methods Toilet Toilet Laboratory Results WBC 21.13 k/cumm (4.4-10.8) H 07/19/19 06:35 RBC 4.05 m/cumm (4.00-5.20) 07/19/19 06:35 Hgb 9.9 g/dL (12.0-15.5) L 07/19/19 06:35 Hct 33.5 % (36.0-46.0) L 07/19/19 06:35 MCV 82.7 fL (80-95) 07/19/19 06:35 MCH 24.4 pg (27.0-33.0) L 07/19/19 06:35 MCHC 29.6 g/dL (32.0-36.0) L 07/19/19 06:35 RDW 18.0 % (11.7-14.6) H 07/19/19 06:35 Plt Count 295 x1000/uL (130-400) 07/19/19 06:35 MPV 10.3 fL (8.0-11.0) 07/19/19 06:35 Abs Immat Gran (auto) Cancelled 07/13/19 12:10 Immature Gran % See Differential 07/19/19 06:35 Neutrophils % 77.0 07/19/19 06:35 Band Neutrophils % Cancelled 07/13/19 12:10 Lymphocytes % 13.0 07/19/19 06:35 Atypical Lymphs % Cancelled 07/13/19 12:10 Monocytes % 8.0 07/19/19 06:35 Eosinophils % 0.0 07/19/19 06:35 Basophils % 0.0 07/19/19 06:35 Metamyelocytes % 2.0 % 07/19/19 06:35 Myelocytes % Cancelled 07/13/19 12:10 Promyelocytes % Cancelled 07/13/19 12:10 Absolute Neutrophils 16.27 k/cumm (1.2-6.7) H 07/19/19 06:35 Absolute Lymphocytes 2.75 k/cumm (1.2-3.4) 07/19/19 06:35 Absolute Monocytes 1.69 k/cumm (0.11-0.7) H 07/19/19 06:35 Absolute Eosinophils 0.00 k/cumm (0.0-0.7) 07/19/19 06:35 Absolute Basophils 0.00 k/cumm (0.0-0.2) 07/19/19 06:35 Nucleated RBCs Cancelled 07/13/19 12:10 Differential Comment Rbc morph reviewed 07/14/19 06:47 Other Cell Type Cancelled 07/13/19 12:10 RBC Morphology See below 07/14/19 06:47 Polychromasia Present 07/14/19 06:47 Hypochromasia 2+ 07/14/19 06:47 Poikilocytosis Cancelled 07/13/19 12:10 Basophilic Stippling Cancelled 07/13/19 12:10 Anisocytosis 2+ 07/14/19 06:47 Microcytosis 2+ 07/14/19 06:47 Macrocytosis Cancelled 07/13/19 12:10 Spherocytes Cancelled 07/13/19 12:10 Target Cells Cancelled 07/13/19 12:10 Tear Drop Cells Cancelled 07/13/19 12:10 Ovalocytes Cancelled 07/13/19 12:10 Stomatocytes Cancelled 07/13/19 12:10 [place] Bodies Cancelled 07/13/19 12:10 Meena Cells Cancelled 07/13/19 12:10 Acanthocytes (Spur) Cancelled 07/13/19 12:10 Schistocytes Cancelled 07/13/19 12:10 Sodium 142 mmol/L (136-145) 07/19/19 06:35 Potassium 4.9 mmol/L (3.5-5.1) 07/19/19 06:35 Chloride 106 mmol/L (98-107) 07/19/19 06:35 Carbon Dioxide 29.6 mmol/L (21.0-32.0) 07/19/19 06:35 Anion Gap 6.4 mmol/L (3-11) 07/19/19 06:35 BUN 69 mg/dL (7-18) H 07/19/19 06:35 Creatinine 1.69 mg/dL (0.55-1.02) H 07/19/19 06:35 Estimated GFR/1.73 m2 29.34 (mL/min/1.73m2) 07/19/19 06:35 Glucose 192 mg/dL (70-100) H 07/19/19 06:35 Calcium 8.7 mg/dL (8.5-10.1) 07/19/19 06:35 Magnesium 2.2 mg/dL (1.8-2.4) 07/19/19 06:35 Total Bilirubin 0.3 mg/dL (0.2-1.0) 07/13/19 12:30 AST 18 U/L (15-37) 07/13/19 12:30 ALT 20 U/L (14-59) 07/13/19 12:30 Alkaline Phosphatase 98 U/L (46-116) 07/13/19 12:30 Troponin I < 0.05 ng/mL (0.00-0.06) 07/16/19 17:07 NT-Pro-B Natriuret Pep 570 pg/mL (-299) H 07/13/19 12:30 Total Protein 8.2 g/dL (6.4-8.2) 07/13/19 12:30 Albumin 3.2 g/dL (3.4-5.0) L 07/13/19 12:30 TSH 0.51 uIU/mL (0.36-3.74) 07/16/19 06:40
[2019-07-19 15:30] VITALS: BP 160/69; PULSE 69; RESP 24; TEMP 37; O2SAT 94
[2019-07-19 15:55] VITALS: RESP 2
--- NOTE | 2019-07-19 17:47 | PDOC.CMPRO ---
- If Service Date Differs Date of service: 07/19/19 Time of Service: 17:47 Care Management Progress Note S/O:Karina was sitting on the side of the bed when CM met with her. She was visiting with her daughter Fina and indicated that she feels she is continuing to improve. Her daughter talked about their recent trip to [place] and stated that although the trip was short, they had a really good time. Fina asked to meet with the provider when available. Karina's kidney function continues to improve but Fina seemed concerned that Karina might need dialysis soon. A: Karina is a 79 year old woman admitted to [facility] on 07/13/19 with obstructive bronchitis with exacerbation P: Karina will be discharged home when medically ready per provider. She does not currently have acute services through home health but anticipate a new referral if indicated. CM to continue to provide support to patient, family, discharged planning and disposition.
[2019-07-19] MEDS: Atorvastatin 40 MG TAB PO (20:48)
[2019-07-19] MEDS: Insulin Glargine 300 UNITS/3 ML PEN 55 UNITS SC (20:52)
[2019-07-20 04:10] VITALS: BP 170/72; PULSE 65; RESP 20; TEMP 36.7; O2SAT 97
[2019-07-20 04:21] VITALS: PULSE 65; RESP 1; RESP 20; RESP 8; O2SAT 97
[2019-07-20] MEDS: Albuterol/Ipratropium 3 ML UPD VIAL UPD ×2 (04:21→10:30)
[2019-07-20 07:14] LABS: Abs Immature Grans 0.65 k/cumm (0.0-0.09); HCT 34.7 % (36.0-46.0); HGB 10.2 g/dL (12.0-15.5); Mean Corp. HGB Concentration 29.4 g/dL (32.0-36.0); Mean Corpuscular Hemoglobin 24.3 pg (27.0-33.0); Mean Corpuscular Volume 82.6 fL (80-95); Mean Platelet Volume 10.4 fL (8.0-11.0); Platelet Count 320 x1000/uL (130-400); RBC Distribution Width 18.2 % (11.7-14.6); White Blood Cell Count 19.43 k/cumm (4.4-10.8)
[2019-07-20 07:20] LABS: Anion Gap 6.4 mmol/L (3-11); BUN 68 mg/dL (7-18); CO2 29.6 mmol/L (21.0-32.0); CREATININE 1.78 mg/dL (0.55-1.02); Chloride 102 mmol/L (98-107); Estimated GFR 27.64 (mL/min/1.73m2); Glucose 282 mg/dL (70-100); Magnesium 2.2 mg/dL (1.8-2.4); Potassium 4.9 mmol/L (3.5-5.1); Sodium 138 mmol/L (136-145)
[2019-07-20 07:36] LABS: Absolute Lymphocyte Count 0.97 k/cumm (1.2-3.4); Absolute Monocyte Count 0.78 k/cumm (0.11-0.7)
[2019-07-20] MEDS: hydrALAZINE 25 MG TAB PO ×2 (07:36→13:21)
[2019-07-20] MEDS: busPIRone 5 MG TAB 7.5 MG PO (07:36)
[2019-07-20 07:37] LABS: Diff Comment Manual Differential
[2019-07-20] MEDS: Clopidogrel 75 MG TAB PO (07:37)
[2019-07-20 07:38] LABS: Hypochromasia 1+; Microcytosis 1+
[2019-07-20] MEDS: predniSONE 20 MG TAB 40 MG PO (07:38)
[2019-07-20] MEDS: Ferrous Sulfate 325 MG TAB PO (07:38)
[2019-07-20] MEDS: Metoprolol CR 25 MG TABCR PO (07:39)
[2019-07-20] MEDS: Pantoprazole 40 MG TABCR PO (07:39)
[2019-07-20] MEDS: amLODIPine 2.5 MG TAB PO (07:39)
[2019-07-20] MEDS: PARoxetine 20 MG TAB PO (07:40)
[2019-07-20] MEDS: Isosorbide Dinitrate 10 MG TAB 30 MG PO (07:40)
[2019-07-20 07:41] VITALS: BP 172/67; PULSE 67; RESP 19; TEMP 36.3; O2SAT 97
[2019-07-20] MEDS: Cholecalciferol (Vitamin D3) 1,000 UNIT TAB 1000 UNITS PO (07:41)
[2019-07-20] MEDS: Apixaban 2.5 MG TAB PO (07:41)
[2019-07-20] MEDS: Normal Saline Flush 10 ML SYR IVP (07:42)
[2019-07-20] MEDS: Insulin Aspart 300 UNITS/3 ML PEN SC ×2 (08:05→12:08)
[2019-07-20] MEDS: Insulin Glargine 300 UNITS/3 ML PEN 70 UNITS SC (08:07)
[2019-07-20 08:35] VITALS: BP 129/49; PULSE 63; RESP 18; TEMP 37; O2SAT 97
[2019-07-20] MEDS: Furosemide 40 MG TAB PO (08:36)
[2019-07-20] MEDS: Acetaminophen 325 MG TAB PO ×2 (08:36→13:59)
[2019-07-20] MEDS: Gabapentin 300 MG CAP 900 MG PO ×2 (08:37→13:21)
[2019-07-20] MEDS: Mylanta Suspension 30 ML CUP PO (08:40)
[2019-07-20 10:30] VITALS: RESP 1
[2019-07-20 11:57] VITALS: PULSE 64; PULSE 93; O2SAT 95; O2SAT 96; O2SAT 97
--- NOTE | 2019-07-20 12:24 | DSE_ITS ---
Date of service: 07/20/19 Time of Service: 12:25 DS: Diagnosis Discharge Diagnosis (1) Obstructive chronic bronchitis with exacerbation: Start date: 07/20/19 Start time: 12:25 Status: Acute Asessment and Plan: Resolved. RA saturation with ambulation maintained 96% on RA. finished a 5 day course of doxycycline, finish steroid taper. Continue nebs at home. (2) COPD with acute exacerbation: Start date: 07/20/19 Start time: 12:26 Status: Inactive Asessment and Plan: see above (3) Paroxysmal atrial fibrillation: Start date: 07/20/19 Start time: 12:27 Status: Acute Asessment and Plan: Controlled (4) Stroke due to embolism: Status: Acute (5) Functional tremor: Start date: 07/20/19 Start time: 12:28 Status: Acute Asessment and Plan: [place] [facility] [place] request (6) DARION (acute kidney injury): Start date: 07/20/19 Start time: 12:28 Status: Inactive Asessment and Plan: Acute on chronic improving. (7) Chronic diastolic CHF (congestive heart failure): Status: Chronic (8) CKD (chronic kidney disease): Status: Acute (9) Chest pain: Start date: 07/20/19 Start time: 12:29 Status: Acute Asessment and Plan: Resolved (10) DVT prophylaxis: Status: Acute (11) Discharge planning issues: Status: Acute Discharge Plan Disposition Patient Disposition: HOME Condition: Improving Discharge Details Chief Complaint: GenMedical Reason For Visit: COPD EXACERBATION Admit Date/Time: 07/13/19 14:57 Admit Provider: Betito Lopez Attending Provider: Betito Lopez Primary Care Provider: Camilla Mcdonald ED Provider: Michael Whitt Hospital Course Hospital Course: 79 y.o female with PMH CAD, Afib, CVA, COPD, Carotid stenosis, CHF, DM, Hypothyroidism, CKD admitted to [facility] m/s for COPD exacerbation with bronchitis. A month ago she was hospitalized for pneumonia. Upon presentation to the ED she was hypoxic and tachypenic with saturation in the 80's placed on oxygen with saturation increasing to the 90's. Labs from the ED reviewed no white count, BUN and creatinine elevated but stable for patient, BNP slightly elevated however in the setting of COPD this is not alarming. She is afebrile. Imaging reveals no cardiopulmonary disease. Patient was recently traveling with worsening cough. She was admitted to for further management. During hospitalization she finished a 5 day course of doxycycline. She was weaned off oxygen, on a steroid taper, sputum culture with normal kurt, Blood culture no growth to date. Her respiratory findings started improving however she then was found to have DARION. She was started on gentle IVF, lasix held with kidney function returning to baseline. Lasix PO one dose was given yesterday with stable BUN and Creatinine today. She was given a daily dose today. She also had a bout of chest pain, during hospitalization, EKG with no acute changes, Troponin flat negative. PPI dose increased and CP has resolved. Today she is looking well. Ambulatory oximetry revealing 96% RA saturation with ambulation. She feels well enough to go home. She appears euvolemic at this time. Given kidney function, recommend repeat BMP in 3 days with follow to PCP. Finish steroid taper, per daughter request neurology referral [place] [facility] [place]. PT recommends home PT, however, family states she goes to [place] and she won't be home for services. She denies CP, SOB, N/V/D Home Meds and New Rx's Prescriptions: New prednisone 20 mg Tablet 40 mg PO DAILY 15 Days Qty: 30 RF: 0 pantoprazole 40 mg Tablet,Delayed Release (Dr/Ec) 40 mg PO BID@0730,1999 Qty: 60 RF: 0 Continued atorvastatin 40 mg Tablet 40 mg PO HS RF: 0 amlodipine [Norvasc] 2.5 mg Tablet 2.5 mg PO DAILY RF: 0 buspirone 7.5 mg Tablet 7.5 mg PO DAILY RF: 0 cholecalciferol (vitamin D3) 1,000 unit Capsule 1,000 unit PO DAILY RF: 0 apixaban 2.5 mg Tablet 2.5 mg PO BID RF: 0 hydralazine 25 mg Tablet 25 mg PO TID RF: 0 isosorbide dinitrate 30 mg Tablet 30 mg PO BID RF: 0 ferrous sulfate 325 mg (65 mg iron) Tablet 325 mg PO DAILY RF: 0 gabapentin 300 mg Capsule 900 mg PO TID RF: 0 metoprolol succinate 25 mg Tablet Extended Release 24 Hr 25 mg PO DAILY RF: 0 nitroglycerin [Nitrostat] 0.4 mg Tablet, Sublingual 0.4 mg SUBLINGUAL Q5M PRNRF: 0 paroxetine HCl [Paxil] 20 mg Tablet 20 mg PO DAILY RF: 0 clopidogrel 75 mg Tablet 75 mg PO DAILY RF: 0 dicyclomine 20 mg Tablet 20 mg PO DAILY PRNRF: 0 insulin lispro [Humalog KwikPen Insulin] 100 unit/mL Insulin Pen 15 unit SUBCUT AC RF: 0 furosemide 40 mg Tablet 40 mg PO BID@0830,1600 Qty: 10 RF: 0 Lantus Solostar U-100 Insulin 100 unit/mL (3 mL) Insulin Pen 70 units subcut DAILY@0800 Qty: 0 RF: 0 Albuterol-Ipatropium 0.5 mg 3 ml inhalation 4-6XD PRN (Reason: shortness of breath/wheezing) Qty: 60 RF: 0 insulin glargine 100 unit/mL Solution 50 unit SUBCUT HS Qty: 0 RF: 0 Novolog U-100 Insulin aspart 100 unit/mL Solution See Rx Instructions .ROUTE .COMPLEX PRN (Reason: Sliding Scale) RF: 0 Discontinued pantoprazole [Protonix] 40 mg Tablet,Delayed Release (Dr/Ec) 40 mg PO DAILY AM RF: 0 Discharge Instructions Instructions: Heart Failure (GEN), Chronic Kidney Disease (GEN), COPD (Chronic Obstructive Pulmonary Disease) (GEN), Chronic Bronchitis (GEN), Impaired Kidney Function (GEN), How Your Lungs Work (GEN) Additional Instructions: Follow up with your Primary Provider in 3-5 days. Repeat lab work for Sunday. Finish your steroid taper: 40 mg x 2 days, 30 mg x 3 days, 20 mg x 3 days, 10 mg x 3 days. Continue to use your nebulizer at home Seek medical treatment if you have chest pain, shortness of breath, vomiting, worsening weakness. Stand Alone Forms: Nursing Discharge Form Referrals: Camilla Mcdonald [Primary Care Provider] - 07/24/19 9:30 am Activity:: Activity as Tolerated Equipment/Supplies:: No Equipment Needed Diet:: Carb Counting Discharge Orders Discharge Orders: Discharge Order (Routine); Ordered 07/20/19 Ordered By: Edelmira Oconnor Other Ambulatory Orders: Basic Metabolic Panel (Routine) Location: None Selected Ordered By: Edelmira Oconnor DS: Summary Status at Discharge Functional status at discharge: uses cane/walker Overall status at discharge: patient is progressing back to baseline Mental Status: mental status grossly normal Speech and Movement: speech and movement normal Mood: congruent mood Affect: normal affect Exam Narrative Exam Narrative: General: elderly female, laying on her left side in bed, alert and oriented, pleasant and cooperative, in NAD. She answers questions appropriately. HEENT: normocephalic, atruamatic, pupils equal and round, mucous membranes moist. Neck: supple, no JVD. Cardiovascular: heart has regular rate and rhythm, no murmur appreciated. Respiratory: respirations even and unlabored, lung sounds clear to auscultation bilaterally, no rales or wheezing. GI: normoactive bowel sounds, abdomen soft, nontender on palpation, nondistended. Extremities: no clubbing, cyanosis or edema. Psych Mental Status: mental status grossly normal Speech and Movement: speech and movement normal Mood: congruent mood Affect: normal affect DS: Data Vitals/I&O Vitals and I&O: Vital Signs Temperature 37.0 C 07/20/19 08:35 Temperature Source Tympanic 07/20/19 08:35 Pulse 63 07/20/19 08:35 Pulse Rhythm Regular 07/20/19 07:47 Pulse 69 07/13/19 13:30 Respiratory Rate 18 07/20/19 08:35 Respiratory Effort Non-Labored 07/20/19 07:47 Respiratory Depth Normal 07/20/19 07:47 Respiratory Pattern Normal 07/20/19 07:47 Blood Pressure 129/49 L 07/20/19 08:35 Blood Pressure Mean 61 07/13/19 15:30 Blood Pressure Position Sitting 07/13/19 11:03 Pulse Oximetry 97 07/20/19 08:35 Oxygen Delivery Method Room Air 07/20/19 08:35 Oxygen Flow Rate 0 07/20/19 08:35 Pain Level 0 07/20/19 09:36 Comment 07/18/19 08:19 Intake & Output 07/19/19 07/20/19 07/20/19 23:59 11:59 23:59 Intake Total 2431.5 990 / 990 Output Total 600 / 600 1600 / 1600 Balance -590 / 1832.5 -610 / -610 Weight 82.4 kg Intake: IV 10 2.5 Oral 980 / 980 Output: Urine 600 / 600 1600 / 1600 Other: Urine Color Yellow Yellow Urine Appearance Cloudy Clear Urine Odor Foul Normal Comment Per patient Stool Occult Blood Positive Stool Size Large Stool Characteristics Soft Formed Brown Voiding Methods Toilet Toilet Data Completed and Pending Completed studies during hospitalization [Text1]: Exam(s) PROCEDURE INFORMATION: Exam: XR Chest, 2 Views Exam date and time: 07/13/2019 1:24 PM Clinical history: 79 years old, female; Cough TECHNIQUE: Imaging protocol: XR of the chest Views: 2 views. COMPARISON: CR XR CHEST 2V PA LATERAL 06/11/2019 10:16 PM FINDINGS: Lungs: Interstitial lung scarring unchanged. No new focal pulmonary consolidation. Pleural space: No pleural effusion. No pneumothorax. Heart/Mediastinum: No significant cardiomegaly. Bones/joints: Bony structures stable. IMPRESSION: No definite evidence of acute cardiopulmonary disease. Exam(s) a RAD:XR chest 2V PA & lateral EXAM: XR CHEST 2V PA LATERAL INDICATION: cough. COMPARISON: XR CHEST 2V PA LATERAL from 06/11/2019 TECHNIQUE: 2D digital imaging was performed. FINDINGS: The heart size is within normal limits and stable. Pulmonary vasculature is unremarkable. No focal consolidating infiltrates are present. No effusions or pneumothoraces are present. Stable chronic interstitial findings are present. These likely reflect fibrosis. Degenerative changes are seen in the spine. IMPRESSION: No acute pulmonary process. Labs on day of discharge: Labs from last 24 hours 07/20/19 07/20/19 07/20/19 13:00 06:45 06:45 WBC 19.43 H RBC 4.20 Hgb 10.2 L Hct 34.7 L MCV 82.6 MCH 24.3 L MCHC 29.4 L RDW 18.2 H Plt Count 320 MPV 10.4 Immature Gran % See Differential Neutrophils % 85.0 Band Neutrophils % 3.0 Lymphocytes % 5.0 Monocytes % 4.0 Eosinophils % 0.0 Basophils % 0.0 Metamyelocytes % 3.0 Absolute Neutrophils 17.10 H Absolute Lymphocytes 0.97 L Absolute Monocytes 0.78 H Absolute Eosinophils 0.00 Absolute Basophils 0.00 Differential Comment Manual differential RBC Morphology See below Hypochromasia 1+ Microcytosis 1+ Sodium Pending 138 Potassium Pending 4.9 Chloride Pending 102 Carbon Dioxide Pending 29.6 Anion Gap Pending 6.4 BUN Pending 68 H Creatinine Pending 1.78 H Estimated GFR/1.73 m2 Pending 27.64 Glucose Pending 282 H Calcium Pending 9.0 Magnesium 2.2 PFSH Medical History CAD (coronary artery disease) (Chronic) Carotid stenosis (Acute) s/p bilateral CEA Chronic diastolic CHF (congestive heart failure) (Chronic) Chronic low back pain (Acute) CKD (chronic kidney disease) (Acute) COPD (chronic obstructive pulmonary disease) (Chronic) Depression with anxiety (Acute) Diabetes mellitus (Chronic) 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 mellitus (Acute) Diverticulitis (Chronic) GERD (gastroesophageal reflux disease) (Chronic) History of pulmonary embolism (Acute) Hyperlipidemia (Acute) Hypertension (Chronic) Hypothyroidism (Chronic) Obesity (BMI 30.0-34.9) (Chronic) DANYELLE (obstructive sleep apnea) (Chronic) Paroxysmal atrial fibrillation (Acute) Peripheral vascular disease (Chronic) Rheumatoid arthritis (Chronic) Surgical History H/O cardiac catheterization (Chronic) [address] History of left-sided carotid endarterectomy (Acute) History of right-sided carotid endarterectomy (Acute) S/P arterial stent (Acute) leg x2 S/P arteriovenous (AV) fistula creation (Acute) [facility] in [place] Family History Other Diabetes Heart disease Social History Smoking/Tobacco Use Status: Former Tobacco Use Alcohol Intake: never Drug use: Never Substance use type: does not use Household members: children Housing: house Number of Children: 3 current occupation: Retired; attends [employer] during the day Seatbelt use: always Do you feel safe at home: Yes Do you feel safe in your relationship?: Yes
--- NOTE | 2019-07-20 12:52 | PDOC.CMDIS ---
- If Service Date Differs Date of service: 07/20/19 Time of Service: 12:52 LACE Index Scoring Tool - Questions: Length of Stay (in days): 7 - 13 Acuity (Admit via E.D.?): Yes Comorbidities: PVD, Diabetes w/o Complication, Congestive Heart Failure, Chronic Pulmonary Disease, Liver or Renal Disease E.D. Visits: 4 - Answers: Total Score: 17 Risk of Readmission: High Risk Care Management Discharge Reason for Hospitalization: COPD Discharge Plan: Karina will be discharged home with a resumption of community services. She attends Adult day services at [place] currently. Karina will follow up with her PCP and discharge plan of care. A referral has also been sent to [facility] for Neurology at the request of the family and ordered by provider.She will transport via private vehicle with daughter. Patient/Family Education Needs: Discharge plan, limitations, follow up plan, Ask Me Three.
[2019-07-20 13:25] LABS: Anion Gap 7.8 mmol/L (3-11); BUN 72 mg/dL (7-18); CO2 29.2 mmol/L (21.0-32.0); CREATININE 1.98 mg/dL (0.55-1.02); Calcium 9.2 mg/dL (8.5-10.1); Chloride 99 mmol/L (98-107); Estimated GFR 24.44 (mL/min/1.73m2); Glucose 355 mg/dL (70-100); Potassium 5.4 mmol/L (3.5-5.1); Sodium 136 mmol/L (136-145)
== END 2019-07-20 14:23 | disposition home or self-care (01) | DRG 202 ==
LOC: ER 15:27 → MS 15:46
PROVIDERS: General Practice; Nurse Practitioner; Nurse Practitioner Family; Admitting Provider Internal Medicine; Emergency Provider Student in an Organized Health Care Education/Training Program; PCP Nurse Practitioner Family; Visit Provider Internal Medicine
DX: J20.9 Acute bronchitis, unspecified (principal); J44.1 Chronic obstructive pulmonary disease with (acute) exacerbation; J44.0 Chronic obstructive pulmonary disease with (acute) lower respiratory infection; N17.9 Acute kidney failure, unspecified; I50.32 Chronic diastolic (congestive) heart failure; I48.0 Paroxysmal atrial fibrillation; R25.1 Tremor, unspecified; N18.9 Chronic kidney disease, unspecified; R07.9 Chest pain, unspecified; I25.10 Atherosclerotic heart disease of native coronary artery without angina pectoris; R09.02 Hypoxemia; Z86.73 Personal history of transient ischemic attack (TIA), and cerebral infarction without residual deficits; Z79.01 Long term (current) use of anticoagulants; E11.22 Type 2 diabetes mellitus with diabetic chronic kidney disease; E11.65 Type 2 diabetes mellitus with hyperglycemia; T38.0X5A Adverse effect of glucocorticoids and synthetic analogues, initial encounter; Z79.4 Long term (current) use of insulin; K21.9 Gastro-esophageal reflux disease without esophagitis; G47.33 Obstructive sleep apnea (adult) (pediatric); E66.9 Obesity, unspecified; Z68.33 Body mass index [BMI] 33.0-33.9, adult; M06.9 Rheumatoid arthritis, unspecified; Z95.5 Presence of coronary angioplasty implant and graft; Z66 Do not resuscitate; Z71.3 Dietary counseling and surveillance; F41.8 Other specified anxiety disorders
CPT/HCPCS: 36415; 80048; 80053; 82947; 87040; 87077; 87449; 93005; 94640; 96361; 96374; 97110; 97162; 97165; 97530; 97535; 99223; 99232; 99233; 99239; 99285; 71046; 83735; 83880; 84443; 84484; 85025; 87070; 87205; 93010; 94760; J1756; J1815; J1941; J2930; J3475; J7512; J7620

== ENCOUNTER 2019-07-23 03:15 | Observation (INO) | payer MEDICARE, MEDICAID, SELFPAY ==
[2019-07-23] VITALS (31 sets, daily range): BP systolic 115–178; BP diastolic 41–87; PULSE 57–68; RESP 12–28; TEMP 36.2–36.8; O2SAT 90–100
--- NOTE | 2019-07-23 03:18 | ED.GENADUL_ITS ---
Discharge Plan Disposition Patient Disposition: [facility] INPATIENT Condition: Fair Discharge Details Chief Complaint: Chest Pain Clinical Impression: Chest pain Primary Care Provider: Camilla Mcdonald ED Provider: Pedro Nichole [place] Meds and New Rx's Prescriptions: No Action atorvastatin 40 mg Tablet 40 mg PO HS RF: 0 amlodipine [Norvasc] 2.5 mg Tablet 2.5 mg PO DAILY RF: 0 buspirone 7.5 mg Tablet 7.5 mg PO DAILY RF: 0 cholecalciferol (vitamin D3) 1,000 unit Capsule 1,000 unit PO DAILY RF: 0 apixaban 2.5 mg Tablet 2.5 mg PO BID RF: 0 hydralazine 25 mg Tablet 25 mg PO TID RF: 0 isosorbide dinitrate 30 mg Tablet 30 mg PO BID RF: 0 ferrous sulfate 325 mg (65 mg iron) Tablet 325 mg PO DAILY RF: 0 gabapentin 300 mg Capsule 900 mg PO TID RF: 0 metoprolol succinate 25 mg Tablet Extended Release 24 Hr 25 mg PO DAILY RF: 0 nitroglycerin [Nitrostat] 0.4 mg Tablet, Sublingual 0.4 mg SUBLINGUAL Q5M PRNRF: 0 paroxetine HCl [Paxil] 20 mg Tablet 20 mg PO BID RF: 0 clopidogrel 75 mg Tablet 75 mg PO DAILY RF: 0 dicyclomine 20 mg Tablet 20 mg PO DAILY PRNRF: 0 insulin lispro [Humalog KwikPen Insulin] 100 unit/mL Insulin Pen 15 unit SUBCUT AC RF: 0 furosemide 40 mg Tablet 40 mg PO BID@0830,1600 Qty: 10 RF: 0 Lantus Solostar U-100 Insulin 100 unit/mL (3 mL) Insulin Pen 70 units subcut DAILY@0800 Qty: 0 RF: 0 Albuterol-Ipatropium 0.5 mg 3 ml inhalation 4-6XD PRN (Reason: shortness of breath/wheezing) Qty: 60 RF: 0 insulin glargine 100 unit/mL Solution 50 unit SUBCUT HS Qty: 0 RF: 0 Novolog U-100 Insulin aspart 100 unit/mL Solution See Rx Instructions .ROUTE .COMPLEX PRN (Reason: Sliding Scale) RF: 0 prednisone 20 mg Tablet 40 mg PO DAILY 15 Days Qty: 30 RF: 0 pantoprazole 40 mg Tablet,Delayed Release (Dr/Ec) 40 mg PO BID@0730,2000 Qty: 60 RF: 0 Medical Decision Making Patient arrives with chest pain and shortness of breath. Breathing much better on CPAP. Chest pain almost gone after few minutes in the emergency department. She did take nitroglycerin at home and received aspirin by EMS. EKG is unchanged from previous. IV established laboratory studies obtained. Will obtain chest x-ray. Seems to be in no distress and lungs sound relatively clear so will consider weaning off CPAP if chest x-ray looks okay. Blood pressure at this point reasonable 150/90. 04:50 - Patient's chest x-ray was unremarkable per my review. Preliminary radiology read confirms. Patient reporting that chest pain is only minimally present. She is taken off CPAP and on room air is about 93-94%. Laboratory studies have returned with elevated white count of 22.4. She has been elevated around the range of 20 since her admission and this is presumably due to steroids. Hemoglobin is fine. Kidney function has climbed back up a little bit with a BUN of 84 and creatinine at 2.06. Glucose remains elevated again presumably secondary to steroids. First troponin is negative. BNP is 241 and normal and down from last admission. On reevaluation patient is in no respiratory distress. Palpation of the chest wall reproduces her pain. Suspect she is having chest wall pain from coughing. Shortness of breath and difficulty breathing may have been related to sleep apnea. She is supposed to be getting a study in September for that. In any event at this point she seems stable. She is on room air. Case is discussed with hospitalist for observation admission for chest pain and trending of enzymes. Patient to be seen by Dr. Weiss here. Medical Records Medical records reviewed: Yes I reviewed the patient's medical records. Lab Data Lab results reviewed: Yes I reviewed the patient's lab results. ECG Data Attestation: I personally reviewed and interpreted this ECG (s) as follows: Prior ECG tracings: available for review Interpretation: Sinus rhythm at 63. Incomplete right bundle branch block pattern. No acute ST elevation or depression. No significant change compared to previous. HPI General Mode of arrival: EMS . Date/Time Provider Initiated Documentation: 07/23/19 03:24 . Limitations to Documentation: no limitations . Information obtained by: patient, EMS, RN notes reviewed and old records reviewed . HPI Narrative: Patient presents to ED by ambulance after being woke with chest pain and shortness of breath. Patient had recent 1 week admission with discharge just a few days ago for COPD exacerbation. She does have history of cardiac disease and CHF as well as CKD. She had slight DARION while in the hospital for her COPD exacerbation. However, at discharge her diuretics were restarted. She had been doing well until tonight. She denies any fever. She woke with chest pain and shortness of breath. She did take 2 sublingual nitroglycerin at home with some help of her pain. On EMS arrival she was noted to have some crackles in the bases and was placed on CPAP which improved her breathing and her pain. She did receive 324 of aspirin. On arrival here she appears comfortable with some residual pain. Related Data Home Medications Medication Instructions Recorded Confirmed amlodipine [Norvasc] 2.5 mg PO DAILY 05/20/19 07/23/19 apixaban 2.5 mg PO BID 05/20/19 07/23/19 atorvastatin 40 mg PO HS 05/20/19 07/23/19 buspirone 7.5 mg PO DAILY 05/20/19 07/23/19 cholecalciferol (vitamin D3) 1,000 unit PO DAILY 05/20/19 07/23/19 clopidogrel 75 mg PO DAILY 05/20/19 07/23/19 dicyclomine 20 mg PO DAILY PRN 05/20/19 07/23/19 ferrous sulfate 325 mg PO DAILY 05/20/19 07/23/19 gabapentin 900 mg PO TID 05/20/19 07/23/19 hydralazine 25 mg PO TID 05/20/19 07/23/19 insulin lispro [Humalog KwikPen 15 unit SUBCUT AC 05/20/19 07/23/19 Insulin] isosorbide dinitrate 30 mg PO BID 05/20/19 07/23/19 metoprolol succinate 25 mg PO DAILY 05/20/19 07/23/19 nitroglycerin [Nitrostat] 0.4 mg SUBLINGUAL Q5M PRN 05/20/19 07/23/19 paroxetine HCl [Paxil] 20 mg PO BID 05/20/19 07/23/19 Albuterol-Ipatropium 3 ml INHALATION 4-6XD PRN #60 each 05/26/19 07/23/19 Lantus Solostar U-100 Insulin 70 units SUBCUT DAILY@00 #0 ml 05/26/19 07/23/19 furosemide 40 mg PO BID@0830,1600 #10 tab 05/26/19 07/23/19 insulin glargine 50 unit SUBCUT HS #0 ml 05/26/19 07/23/19 Novolog U-100 Insulin aspart See Rx Instructions .ROUTE 07/13/19 07/23/19 .COMPLEX PRN pantoprazole 40 mg PO BID@0730,2000 #60 tab 07/20/19 07/23/19 prednisone 40 mg PO DAILY 15 Days #30 tab 07/20/19 07/23/19 Previous Rx's Medication Instructions Recorded Albuterol-Ipatropium 3 ml INHALATION 4-6XD PRN #60 each 05/26/19 Lantus Solostar U-100 Insulin 70 units SUBCUT DAILY@0800 #0 ml 05/26/19 furosemide 40 mg PO BID@0830,1600 #10 tab 05/26/19 insulin glargine 50 unit SUBCUT HS #0 ml 05/26/19 pantoprazole 40 mg PO BID@0730,2000 #60 tab 07/20/19 prednisone 40 mg PO DAILY 15 Days #30 tab 07/20/19 Allergies Allergy/AdvReac Type Severity Reaction Status Date / Time Morphine AdvReac Severe Agitation Uncoded 07/23/19 03:23 General JOSH: 3 Review of Systems Unobtainable due to (unable to obtain; patient on CPAP) [facility] Medical History CAD (coronary artery disease) (Chronic) Carotid stenosis (Acute) s/p bilateral CEA Chronic diastolic CHF (congestive heart failure) (Chronic) Chronic low back pain (Acute) CKD (chronic kidney disease) (Acute) COPD (chronic obstructive pulmonary disease) (Chronic) Depression with anxiety (Acute) Diabetes mellitus (Chronic) 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 mellitus (Acute) Diverticulitis (Chronic) GERD (gastroesophageal reflux disease) (Chronic) History of pulmonary embolism (Acute) Hyperlipidemia (Acute) Hypertension (Chronic) Hypothyroidism (Chronic) Obesity (BMI 30.0-34.9) (Chronic) DANYELLE (obstructive sleep apnea) (Chronic) Paroxysmal atrial fibrillation (Acute) Peripheral vascular disease (Chronic) Rheumatoid arthritis (Chronic) Surgical History H/O cardiac catheterization (Chronic) [address] History of left-sided carotid endarterectomy (Acute) History of right-sided carotid endarterectomy (Acute) S/P arterial stent (Acute) leg x2 S/P arteriovenous (AV) fistula creation (Acute) [facility] in [place] Social History Smoking/Tobacco Use Status: Former Tobacco Use Alcohol Intake: never Drug use: Never Substance use type: does not use Household members: children Housing: house Number of Children: 3 current occupation: Retired; attends [employer] during the day Seatbelt use: always Do you feel safe at home: Yes Do you feel safe in your relationship?: Yes Exam Narrative Exam Narrative: Vitals: Afebrile. Elevated blood pressure. 100% saturation on CPAP. Const: Obese elderly female on CPAP. HEENT: NC/AT. Normal facial exam. Neck: Supple. Trachea midline. Lungs: Normal respiratory effort with CPAP in place. Lungs are clear here. Cor: RRR without murmur/gallop. Good radial pulses. GI: Soft. NT/ND. No guarding or rebound. Neuro: A+O x 3. Normal mentation. No gross motor or sensory deficits. Ext: No C/C/E. No calf tenderness. Skin: Warm and dry without rash.
--- NOTE | 2019-07-23 03:24 | DI.RAD_ITS ---
EXAM: XR PORTABLE CHEST AP INDICATION: CP/SOB. COMPARISON: XR CHEST 2V PA LATERAL from 07/13/2019 TECHNIQUE: 2D digital imaging was performed. FINDINGS: The exam is mildly limited by respiratory motion. Abdominal soft tissues are super imposed on the raymond ng bases. A lead overlies the lower lung whitaker. The heart is mildly enlarged, unchanged. No focal infiltrate, effusion or pulmonary edema is visible. IMPRESSION: No acute abnormality.
--- NOTE | 2019-07-23 03:58 | NUR.NOTE ---
Nursing Note: Radiology at bedside for chest xray
--- NOTE | 2019-07-23 03:59 | NUR.NOTE ---
Nursing Note: Lab at bedside for blood draw.
--- NOTE | 2019-07-23 04:02 | NUR.NOTE ---
Nursing Note: Patient rates pain 2/10. States it has improved since being placed on CPAP. Reports she sometimes gets a catch under left breast with cough or movement for several weeks.
--- NOTE | 2019-07-23 04:07 | DI.VRAD_ITS ---
PROCEDURE INFORMATION: Exam: XR Chest, 1 View Exam date and time: 07/23/2019 3:29 AM Age: 79 years old Clinical history: Shortness of breath; Type not specified; Patient HX: Chest pain and SOB TECHNIQUE: Imaging protocol: XR of the chest Views: 1 view. COMPARISON: CR XR CHEST 2V PA LATERAL 07/13/2019 1:43 PM FINDINGS: Lungs: Unremarkable. No consolidation. Pleural space: Unremarkable. No pleural effusion. No pneumothorax. Heart/Mediastinum: Unremarkable. No cardiomegaly. Bones/joints: Unremarkable. IMPRESSION: No acute findings. Dictated and Authenticated by: Rizwan Hathaway MD. Ordering:ANTONIO Vasquez MD
[2019-07-23 04:14] LABS: Abs Immature Grans 0.43 k/cumm (0.0-0.09); Absolute Basophil Count 0.04 k/cumm (0.0-0.2); Absolute Lymphocyte Count 1.43 k/cumm (1.2-3.4); Basophils % 0.2; HCT 37.7 % (36.0-46.0); HGB 11.4 g/dL (12.0-15.5); Immature Grans % 1.9; Lymphocytes % 6.4; Mean Corp. HGB Concentration 30.2 g/dL (32.0-36.0); Mean Corpuscular Hemoglobin 25.2 pg (27.0-33.0); Mean Corpuscular Volume 83.2 fL (80-95); Mean Platelet Volume 10.6 fL (8.0-11.0); Monocytes % 5.8; Neutrophils % 85.7; Platelet Count 382 x1000/uL (130-400); RBC 4.53 m/cumm (4.00-5.20); RBC Distribution Width 18.8 % (11.7-14.6)
--- NOTE | 2019-07-23 04:16 | NUR.NOTE ---
Nursing Note: Pt trialed off of EMS CPAP device per MD. Set up with high flow nasal cannula. Does not wear O2 at home normally. Pt will be room air trialed. Currently on room air, pt able to clear secretions and maintain 94 % RA. Pt has cannula available if needed. MD aware.
[2019-07-23 04:37] LABS: ALT 32 U/L (14-59); AST 12 U/L (15-37); Albumin 3.1 g/dL (3.4-5.0); Alkaline Phosphatase 70 U/L (46-116); Anion Gap 6.2 mmol/L (3-11); Bilirubin, Total 0.2 mg/dL (0.2-1.0); CO2 32.8 mmol/L (21.0-32.0); CREATININE 2.06 mg/dL (0.55-1.02); Chloride 100 mmol/L (98-107); Estimated GFR 23.35 (mL/min/1.73m2); Glucose 355 mg/dL (74-106); Magnesium 2.3 mg/dL (1.8-2.4); NT-proBNP 241 pg/mL (<300); Potassium 4.8 mmol/L (3.5-5.1); Sodium 139 mmol/L (136-145); Total Protein 7.2 g/dL (6.4-8.2)
--- NOTE | 2019-07-23 04:39 | NUR.NOTE ---
Nursing Note: Patient continues to tolerate being on room air with sats remaining 94-95%.
[2019-07-23 04:40] LABS: BUN 84 mg/dL (7-18); Troponin I < 0.05 ng/Ml (<0.06)
--- NOTE | 2019-07-23 04:45 | NUR.NOTE ---
Nursing Note:Dr. Nichole in to discuss results with patient.
[2019-07-23] MEDS: Acetaminophen 325 MG TAB 650 MG PO ×4 (04:55→21:18)
--- NOTE | 2019-07-23 05:17 | HPE_ITS ---
Date of service: 07/23/19 Time of Service: 05:17 Assessment and Plan Assessment and plan (1) Chest pain: Status: Acute Assessment and plan: Chest pain. Unclear if cardiogenic, GI or chest wall. Will trend out troponins, continue PPI and usual Imdur for now. Otherwise: 1. COPD: will continue prodnisone. Given continued cough will add back Doxycycline 2. Leukocytosis: presumably from steroids 3. CHF: clinically euvolemic at present, story and initial CXR might be c/w element flash pulmonary edema, though normal BNP reassuring in this regard. Will leave diuretic regimen as is. 4. DM: exacerbated by steroids. Usual basal insulin, plus SS coverage. 5. Reviewed ADs, requests continued DNR History of Present Illness History of Present Illness Chief Complaint: cp Narrative: 79 female with multiple problems, including COPD, CAD, CHF -- just discharged 3 days [employer] for [place] [employer] exacerbation, s/p course Doxycycline, and home on Prednisone. Note that she did have an episode of CP during that stay, ruled out, and dose PPI increased. At any rate tonight patient had epsidoe of CP which she variably describes as being a pressure or sharp. Took NTG, unclear if this helpedd. EMS summoned, report is that she had sat of 89% and crackles . Here in ER she was temporrarily on CPAP, has since been d/ayaka. Initial EKG and troponin negative, admitted forr further evaluation. At this time patient says she feels more or less her usual self. Does continue to cough though. Review of Systems All systems reviewed & are unremarkable except as noted in HPI and below PFSH Medical History CAD (coronary artery disease) (Chronic) Carotid stenosis (Acute) s/p bilateral CEA Chronic diastolic CHF (congestive heart failure) (Chronic) Chronic low back pain (Acute) CKD (chronic kidney disease) (Acute) COPD (chronic obstructive pulmonary disease) (Chronic) Depression with anxiety (Acute) Diabetes mellitus (Chronic) 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 mellitus (Acute) Diverticulitis (Chronic) GERD (gastroesophageal reflux disease) (Chronic) History of pulmonary embolism (Acute) Hyperlipidemia (Acute) Hypertension (Chronic) Hypothyroidism (Chronic) Obesity (BMI 30.0-34.9) (Chronic) DANYELLE (obstructive sleep apnea) (Chronic) Paroxysmal atrial fibrillation (Acute) Peripheral vascular disease (Chronic) Rheumatoid arthritis (Chronic) Surgical History H/O cardiac catheterization (Chronic) [address] History of left-sided carotid endarterectomy (Acute) History of right-sided carotid endarterectomy (Acute) S/P arterial stent (Acute) leg x2 S/P arteriovenous (AV) fistula creation (Acute) [facility] Social History Smoking/Tobacco Use Status: Former Tobacco Use Alcohol Intake: never Drug use: Never Substance use type: does not use Household members: children Housing: house Number of Children: 3 current occupation: Retired; attends [employer] during the day Seatbelt use: always Do you feel safe at home: Yes Do you feel safe in your relationship?: Yes Meds Home Medications and Allergies Home Medications Medication Instructions Recorded Confirmed Type amlodipine [Norvasc] 2.5 mg PO DAILY 05/20/19 07/23/19 History apixaban 2.5 mg PO BID 05/20/19 07/23/19 History atorvastatin 40 mg PO HS 05/20/19 07/23/19 History buspirone 7.5 mg PO DAILY 05/20/19 07/23/19 History cholecalciferol (vitamin D3) 1,000 unit PO DAILY 05/20/19 07/23/19 History clopidogrel 75 mg PO DAILY 05/20/19 07/23/19 History dicyclomine 20 mg PO DAILY PRN 05/20/19 07/23/19 History ferrous sulfate 325 mg PO DAILY 05/20/19 07/23/19 History gabapentin 900 mg PO TID 05/20/19 07/23/19 History hydralazine 25 mg PO TID 05/20/19 07/23/19 History insulin lispro [Humalog KwikPen 15 unit SUBCUT AC 05/20/19 07/23/19 History Insulin] isosorbide dinitrate 30 mg PO BID 05/20/19 07/23/19 History metoprolol succinate 25 mg PO DAILY 05/20/19 07/23/19 History nitroglycerin [Nitrostat] 0.4 mg SUBLINGUAL Q5M PRN 05/20/19 07/23/19 History paroxetine HCl [Paxil] 20 mg PO BID 05/20/19 07/23/19 History Albuterol-Ipatropium 3 ml INHALATION 4-6XD PRN #60 each 05/26/19 07/23/19 Rx Lantus Solostar U-100 Insulin 70 units SUBCUT DAILY@0800 #0 ml 05/26/19 07/23/19 Rx furosemide 40 mg PO BID@0830,1600 #10 tab 05/26/19 07/23/19 Rx insulin glargine 50 unit SUBCUT HS #0 ml 05/26/19 07/23/19 Rx Novolog U-100 Insulin aspart See Rx Instructions .ROUTE 07/13/19 07/23/19 History .COMPLEX PRN pantoprazole 40 mg PO BID@0730,2000 #60 tab 07/20/19 07/23/19 Rx prednisone 40 mg PO DAILY 15 Days #30 tab 07/20/19 07/23/19 Rx Allergies Allergy/AdvReac Type Severity Reaction Status Date / Time Morphine AdvReac Severe Agitation Uncoded 07/23/19 03:23 Exam Narrative Exam Narrative: 151/87, 64, 18, 36.8; sat currently 96% RA. HEENT AT/NC; neck supple; lungs bronchial but clearr; heart RRR 1/6 systolic murmur LUSB; chest wall diffusely tender (and patient states it reproduces her pain); abdomen soft and NT; extremities w/o edema, pulse equal; neuro non-focal. Results EKG shows NSR no ST changes, T waves perhaps slightly peaked compared to prior; CXR is read as negative though I might read as slight vascular congestion. Otherwise labs as below. Labs Result diagrams: 07/23/19 04:05 07/23/19 04:05 Labs: Laboratory Results - last 24 hr 07/23/19 07/23/19 04:05 04:05 WBC 22.40 H RBC 4.53 Hgb 11.4 L Hct 37.7 MCV 83.2 MCH 25.2 L MCHC 30.2 L RDW 18.8 H Plt Count 382 MPV 10.6 Immature Gran % 1.9 Neutrophils % 85.7 Lymphocytes % 6.4 Monocytes % 5.8 Eosinophils % 0.0 Basophils % 0.2 Absolute Neutrophils 19.20 H Absolute Lymphocytes 1.43 Absolute Monocytes 1.30 H Absolute Eosinophils 0.00 Absolute Basophils 0.04 Sodium 139 Potassium 4.8 Chloride 100 Carbon Dioxide 32.8 H Anion Gap 6.2 BUN 84 H* Creatinine 2.06 H Estimated GFR/1.73 m2 23.35 Glucose 355 H Calcium 8.0 L Magnesium 2.3 Total Bilirubin 0.2 AST 12 L ALT 32 Alkaline Phosphatase 70 Troponin I < 0.05 NT-Pro-B Natriuret Pep 241 Total Protein 7.2 Albumin 3.1 L Last Vital Signs Temp 36.8 C 07/23/19 03:23 Pulse 64 07/23/19 03:23 Resp 18 07/23/19 03:23 BP 151/87 H 07/23/19 03:23 Pulse Ox 100 07/23/19 03:23
--- NOTE | 2019-07-23 06:00 | NUR.NOTE ---
Nursing Note: Called in room by pt. States she is having a bunch under her right breast. Patient repositioned. Reports pain is resolved.
[2019-07-23] MEDS: Doxycycline Hyclate 100 MG CAP PO ×2 (06:46→17:56)
[2019-07-23] MEDS: hydrALAZINE 25 MG TAB PO ×3 (08:16→21:20)
[2019-07-23] MEDS: predniSONE 20 MG TAB 40 MG PO (08:16)
[2019-07-23] MEDS: Cholecalciferol (Vitamin D3) 1,000 UNIT TAB 1000 UNITS PO (08:16)
[2019-07-23] MEDS: PARoxetine 20 MG TAB PO ×2 (08:16→21:20)
[2019-07-23] MEDS: Clopidogrel 75 MG TAB PO (08:16)
[2019-07-23 08:17] LABS: Troponin I < 0.05 ng/Ml (<0.06)
[2019-07-23] MEDS: busPIRone 15 MG TAB 7.5 MG PO (08:17)
[2019-07-23] MEDS: Isosorbide Dinitrate 10 MG TAB 30 MG PO ×2 (08:18→21:19)
[2019-07-23] MEDS: Ferrous Sulfate 325 MG TAB PO (08:19)
[2019-07-23] MEDS: Metoprolol CR 25 MG TABCR PO (08:19)
[2019-07-23] MEDS: Pantoprazole 40 MG TABCR PO ×2 (08:19→21:20)
[2019-07-23] MEDS: Furosemide 40 MG TAB PO ×2 (08:20→15:50)
[2019-07-23] MEDS: Apixaban 2.5 MG TAB PO ×2 (08:20→21:20)
[2019-07-23] MEDS: amLODIPine 2.5 MG TAB PO (08:20)
[2019-07-23] MEDS: Insulin Glargine 300 UNITS/3 ML PEN 70 UNITS SC (08:21)
[2019-07-23] MEDS: Insulin Aspart 300 UNITS/3 ML PEN 15 UNITS SC ×3 (08:22→16:53)
[2019-07-23] MEDS: Insulin Aspart 300 UNITS/3 ML PEN SC ×2 (08:22→11:56)
[2019-07-23 12:04] LABS: Troponin I < 0.05 ng/Ml (<0.06)
--- NOTE | 2019-07-23 15:23 | PDOC.CMIN ---
- If Service Date Differs Date of service: 07/23/19 Time of Service: 15:23 Care Management Initial Assess REASON FOR HOSPITALIZATION:: Chest pain PAST MEDICAL HISTORY/PAST SURGICAL HISTORY:: COPD, CHF, CAD, DVT, diabetes, hypothyroidism, hyperlipidemia, COPD, hypertension, TIA, HTN. Patient reports that she stopped smoking in 2000. Hx of eight coronary stents, bilateral stenting of lower extremities, right-sided carotid endarterectomy PREVIOUS FUNCTIONAL STATUS/SOCIAL/FAMILY SUPPORTS:: Karina resides with her daughter and son in law in [place], [place] with her daughter Fina. Her son Rizwan resides in [place]. She is mostly independent with personal ADLs and relies on Fina for additional needs in the home setting. Karina attends adult day services 5 days a week and is home with her daughter and son in law on the weekends. CURRENT FUNCTIONAL STATUS:: Karina is lying in bed she is engaged with CM during assessment. She states that she has been having chest pain under her left breast. She states that she goes to [place] 5 days a week and spends the weekends with her daughter and son in law. Karina does not reconize that she has had 4 admissions since May. She states she has only had two admissions and they have been unrelated. She reports that she is active with her family and that they go out and do things together on the weekend. Her daughter arrived later and CM asked what she thought led to readmission she reports that the chest pain started during the night she attempted two Nitro however this did not relieve the pain and they contacted EMS. Daughter feels that this admission is not related to the last admission and that her Mom needed to be at the hospital for the chest pain. ADVANCE DIRECTIVES:: None on file palliative care has been ordered Has patient been provided with information about the portal?: Yes Did the patient sign up for the portal?: No CODE STATUS:: DNR/DNI INSURANCE COVERAGE / FINANCIAL ISSUES:: Medicare and Medicaid CURRENT HOME/COMMUNITY SERVICES/EQUIPMENT:: Adult day 5 days a week, she has a walker and a new referral to palliative care PRIMARY CARE PHYSICIAN:: Camilla Griffin NP family reports that they are switching to [facility] POTENTIAL DISCHARGE NEEDS:: Follow up with primary care provider, palliative care, and resumption of adult day. PATIENT/FAMILY EDUCATION NEEDS:: Discharge education, limitations and follow up plan of care including ask me three and self management. ANTICIPATED BARRIERS TO DISCHARGE:: None TRANSPORTATION:: Via private car with family at time of discharge PLAN:: Karina remains observation level of care today. She remains on telemetry. CM met with her and her daughter and plan will be for her to return home and resume adult day services. CM will continue to provide support discharge planning and send a referral to palliative care. Readmission - Within the Past 30 Days Yes or No: Y - Date of First Admission Date of 1st Admission: 07/13/19 - Date of this Admission Date of Admission: 07/23/19 This admission was: Through ED - Office Visit Since 1st Admission Have you seen your PCP in the office since discharge?: No Had an appointment Been Scheduled?: Yes Date of Scheduled Appointment: 07/24/19 Describe barriers for scheduling or getting an appointment: Admitted prior to appointment and she is changing primary care providers - I. Interview patient and/or Family Difficulty reaching your doctor or getting an office appt?: No Have you had trouble purchasing/ or taking medication?: No Have you had trouble with getting meals at home?: No Did you feel ready for discharge when you left the last time: No (States she may have not been ready) Why did you not feel ready for discharge?: Karina is not able to articulate why she did not feel ready she states I just do not think I was ready. Were services received that you thought were set up on disch: Yes What services were received?: Resumption of adult day Did you call your physician beore you came to the ED?: No Did your physician tell you to come in?: No - If the patient had a VNA ordered Did the patient have a VNA order?: No - ED visits How many ED visits in the past 12 months: 5 - Assessment for Readmission Summary of readmission circumstances, based upon interviews: CM interviewed the patient and the daughter related to readmission. Karina states that she is not sure she was ready to return home at the time of last discharge. Karina has knowledge deficit to heart disease and treatment. Karina daughter states that her Mom needed to come to the hospital by EMS and feels that the two admissions are unrelated. She does report that she gave Karina two nitro when the pain started which did not receive the pain she denies that the pain had anything to do with eating before bed or lying flat. Karina states the left sided pain under her left breast comes and go's her daughter states its been present with activity and at rest. Karina does receive IV iron infusions and was scheduled to have one this week. CM did discuss options that may decrease ER visits and inpatient admissions, including palliative care referral and follow up more often with primary care provider. As well as education related to cardiac disease, anginal pain and GERD.
--- NOTE | 2019-07-23 15:27 | PHARADMIT ---
Admission Pharmacy Clinical Review Chest pain-readmission (discharged 07/20/19) Code Status DNR/DNI Current Weight 84.1 kg Renally Cleared and Narrow Therapeutic Index Meds CrCl~18ml/min (Gabapentin) QTc Value / Action Taken QTC 436 BP Control, Fever BP 151/61 Afebrile Electrolytes reviewed K+ 4.8 Mag 2.3 DVT Prophylaxis Apixiban 2.5mg BID Opiate Usage / Scheduled Bowel Regimen Ordered Plt/SCr for Heparin / Enoxaparin Plt 382 SCr 2.06 (baseline ~ 1.7 yolis) INR for Warfarin H/H stable, WBC/Bands H/H 11.4/37.7 WBC 22.4 (Prednisone) Antibiotic appropriateness Doxycycline from home med list Cultures and Sensitivities Surgical ABX d/c within 24 hr DM control / Insulin Dosing BG 355 (Lantus/Novolog-with special scale) Heart Failure (Check EF%) (JENNIFER's, B-Block, Diuretics) Lasix 40mg po BID, Hydralazine, ntg, Toprol, Amlodipine IV to PO Switch Home Meds Reviewed Gabapentin dose too high, requires renal dose adjusment, MDaware, med is pending, watch for adjustment Asked MD to check Paroxetine 20mg po BID dose also Home Meds Not Ordered ok Comments probnp 241, troponin negative x3, has 8 stents Was due to get Iron sucrose injection TODAY in Infusion room....on hold, not planning to give it as inpatient at this time
--- NOTE | 2019-07-23 16:44 | W.PM.PROGNOT ---
Date of Service Date of service: 07/23/19 Time of Service: 16:44 Subjective Subjective Interval history since last seen: Ms Bean continues to have some pain in her chest when she takes a deep breath, coughs or turns. The pain is in her ribs. She normally takes tylenol for her pain at home and agrees to try it on the schedule to see if it helps with her pain. She has ruled out for ACS. It is ok to d/c her telemetry. Objective Objective Clinical Data: Abnormal lab results 07/23/19 07/23/19 Range/Units 04:05 04:05 WBC 22.40 H (4.4-10.8) k/cumm Hgb 11.4 L (12.0-15.5) g/dL MCH 25.2 L (27.0-33.0) pg MCHC 30.2 L (32.0-36.0) g/dL RDW 18.8 H (11.7-14.6) % Absolute Neutrophils 19.20 H (1.2-6.7) k/cumm Absolute Monocytes 1.30 H (0.11-0.7) k/cumm Carbon Dioxide 32.8 H (21.0-32.0) mmol/L BUN 84 H* (7-18) mg/dL Creatinine 2.06 H (0.55-1.02) mg/dL Glucose 355 H (74-106) mg/dL Calcium 8.0 L (8.5-10.1) mg/dL AST 12 L (15-37) U/L Albumin 3.1 L (3.4-5.0) g/dL Vital Signs Temperature 36.6 C 07/23/19 15:42 Temperature Source Tympanic 07/23/19 15:42 Pulse 62 07/23/19 15:42 Pulse Rhythm Regular 07/23/19 15:50 Pulse 61 07/23/19 06:00 Respiratory Rate 17 07/23/19 15:42 Respiratory Effort Non-Labored 07/23/19 15:50 Respiratory Depth Normal 07/23/19 15:50 Respiratory Pattern Normal 07/23/19 15:50 Blood Pressure 115/52 L 07/23/19 15:42 Blood Pressure Mean 69 07/23/19 05:46 Blood Pressure Position Supine 07/23/19 03:23 Pulse Oximetry 95 07/23/19 15:42 Oxygen Delivery Method Room Air 07/23/19 15:42 Oxygen Flow Rate 0 07/23/19 15:42 Pain Level 10 07/23/19 15:53 Comment 07/23/19 03:23 Intake & Output 07/22/19 07/23/19 07/23/19 23:59 11:59 23:59 Intake Total 720 / 720 Balance 720 / 720 Weight 84.1 kg Intake: Oral 720 / 720 Other: Comment pt voiding independently in the toilet Voiding Methods Toilet Laboratory Results WBC 22.40 k/cumm (4.4-10.8) H 07/23/19 04:05 RBC 4.53 m/cumm (4.00-5.20) 07/23/19 04:05 Hgb 11.4 g/dL (12.0-15.5) L 07/23/19 04:05 Hct 37.7 % (36.0-46.0) 07/23/19 04:05 MCV 83.2 fL (80-95) 07/23/19 04:05 MCH 25.2 pg (27.0-33.0) L 07/23/19 04:05 MCHC 30.2 g/dL (32.0-36.0) L 07/23/19 04:05 RDW 18.8 % (11.7-14.6) H 07/23/19 04:05 Plt Count 382 x1000/uL (130-400) 07/23/19 04:05 MPV 10.6 fL (8.0-11.0) 07/23/19 04:05 Immature Gran % 1.9 07/23/19 04:05 Neutrophils % 85.7 07/23/19 04:05 Lymphocytes % 6.4 07/23/19 04:05 Monocytes % 5.8 07/23/19 04:05 Eosinophils % 0.0 07/23/19 04:05 Basophils % 0.2 07/23/19 04:05 Absolute Neutrophils 19.20 k/cumm (1.2-6.7) H 07/23/19 04:05 Absolute Lymphocytes 1.43 k/cumm (1.2-3.4) 07/23/19 04:05 Absolute Monocytes 1.30 k/cumm (0.11-0.7) H 07/23/19 04:05 Absolute Eosinophils 0.00 k/cumm (0.0-0.7) 07/23/19 04:05 Absolute Basophils 0.04 k/cumm (0.0-0.2) 07/23/19 04:05 Sodium 139 mmol/L (136-145) 07/23/19 04:05 Potassium 4.8 mmol/L (3.5-5.1) 07/23/19 04:05 Chloride 100 mmol/L (98-107) 07/23/19 04:05 Carbon Dioxide 32.8 mmol/L (21.0-32.0) H 07/23/19 04:05 Anion Gap 6.2 mmol/L (3-11) 07/23/19 04:05 BUN 84 mg/dL (7-18) H* 07/23/19 04:05 Creatinine 2.06 mg/dL (0.55-1.02) H 07/23/19 04:05 Estimated GFR/1.73 m2 23.35 (mL/min/1.73m2) 07/23/19 04:05 Glucose 355 mg/dL (74-106) H 07/23/19 04:05 Calcium 8.0 mg/dL (8.5-10.1) L 07/23/19 04:05 Magnesium 2.3 mg/dL (1.8-2.4) 07/23/19 04:05 Total Bilirubin 0.2 mg/dL (0.2-1.0) 07/23/19 04:05 AST 12 U/L (15-37) L 07/23/19 04:05 ALT 32 U/L (14-59) 07/23/19 04:05 Alkaline Phosphatase 70 U/L (46-116) 07/23/19 04:05 Troponin I < 0.05 ng/Ml (<0.06) 07/23/19 11:33 NT-Pro-B Natriuret Pep 241 pg/mL (<300) 07/23/19 04:05 Total Protein 7.2 g/dL (6.4-8.2) 07/23/19 04:05 Albumin 3.1 g/dL (3.4-5.0) L 07/23/19 04:05
[2019-07-23] MEDS: Gabapentin 100 MG CAP 200 MG PO (21:18)
[2019-07-23] MEDS: Atorvastatin 40 MG TAB PO (21:19)
[2019-07-23] MEDS: Insulin Glargine 300 UNITS/3 ML PEN 50 UNITS SC (21:21)
[2019-07-24 03:49] VITALS: BP 166/77; PULSE 54; RESP 16; TEMP 36.2; O2SAT 95
[2019-07-24] MEDS: Acetaminophen 325 MG TAB 650 MG PO ×3 (03:52→16:36)
[2019-07-24] MEDS: Normal Saline Flush 10 ML SYR IVP ×2 (03:53→08:39)
[2019-07-24] MEDS: Mylanta Suspension 30 ML CUP PO (06:08)
[2019-07-24] MEDS: Albuterol/Ipratropium 3 ML UPD VIAL UPD (06:14)
[2019-07-24] MEDS: Doxycycline Hyclate 100 MG CAP PO ×2 (06:52→17:20)
[2019-07-24 07:45] VITALS: BP 138/76; PULSE 57; RESP 20; TEMP 36.6; O2SAT 96
[2019-07-24] MEDS: Pantoprazole 40 MG TABCR PO (08:04)
[2019-07-24] MEDS: PARoxetine 20 MG TAB PO (08:04)
[2019-07-24] MEDS: amLODIPine 2.5 MG TAB PO (08:04)
[2019-07-24] MEDS: hydrALAZINE 25 MG TAB PO ×2 (08:04→13:50)
[2019-07-24] MEDS: Isosorbide Dinitrate 10 MG TAB 30 MG PO (08:05)
[2019-07-24] MEDS: Apixaban 2.5 MG TAB PO (08:05)
[2019-07-24] MEDS: Ferrous Sulfate 325 MG TAB PO (08:05)
[2019-07-24] MEDS: predniSONE 20 MG TAB 40 MG PO (08:05)
[2019-07-24] MEDS: Clopidogrel 75 MG TAB PO (08:05)
[2019-07-24] MEDS: Gabapentin 100 MG CAP 200 MG PO ×2 (08:05→13:50)
[2019-07-24] MEDS: Cholecalciferol (Vitamin D3) 1,000 UNIT TAB 1000 UNITS PO (08:06)
[2019-07-24] MEDS: busPIRone 15 MG TAB 7.5 MG PO (08:06)
[2019-07-24 08:31] LABS: Lactate 1.3 mmol/L (0.6-1.4)
[2019-07-24 08:33] LABS: Abs Immature Grans 0.26 k/cumm (0.0-0.09); Absolute Neutrophil Count 15.04 k/cumm (1.2-6.7); Basophils % 0.1; Eosinophils % 0.3; HCT 38.1 % (36.0-46.0); HGB 11.7 g/dL (12.0-15.5); Immature Grans % 1.2; Lymphocytes % 21.1; Mean Corp. HGB Concentration 30.7 g/dL (32.0-36.0); Mean Corpuscular Hemoglobin 25.3 pg (27.0-33.0); Mean Corpuscular Volume 82.5 fL (80-95); Mean Platelet Volume 10.2 fL (8.0-11.0); Neutrophils % 70.3; Platelet Count 411 x1000/uL (130-400); RBC 4.62 m/cumm (4.00-5.20); RBC Distribution Width 18.9 % (11.7-14.6)
[2019-07-24] MEDS: Furosemide 40 MG/4 ML VIAL IVP (08:39)
[2019-07-24 08:43] LABS: Absolute Basophil Count 0.02 k/cumm (0.0-0.2); Absolute Eosinophil Count 0.06 k/cumm (0.0-0.7); Absolute Lymphocyte Count 4.52 k/cumm (1.2-3.4)
[2019-07-24 08:52] LABS: Anion Gap 7.3 mmol/L (3-11); BUN 79 mg/dL (7-18); CO2 32.7 mmol/L (21.0-32.0); CREATININE 2.07 mg/dL (0.55-1.02); Calcium 8.8 mg/dL (8.5-10.1); Chloride 101 mmol/L (98-107); Estimated GFR 23.22 (mL/min/1.73m2); Glucose 119 mg/dL (74-106); Magnesium 2.2 mg/dL (1.8-2.4); Potassium 3.6 mmol/L (3.5-5.1); Sodium 141 mmol/L (136-145)
[2019-07-24 09:09] LABS: Procalcitonin < 0.1 ng/mL
[2019-07-24] MEDS: Metoprolol CR 25 MG TABCR PO (09:13)
[2019-07-24] MEDS: Insulin Aspart 300 UNITS/3 ML PEN SC ×2 (12:01→17:11)
[2019-07-24] MEDS: Insulin Aspart 300 UNITS/3 ML PEN 15 UNITS SC ×2 (12:02→17:12)
[2019-07-24 15:20] VITALS: BP 132/64; PULSE 55; RESP 18; TEMP 36.5; O2SAT 97
--- NOTE | 2019-07-24 16:58 | CMDISCH_ITS ---
- If Service Date Differs Date of service: 07/24/19 Time of Service: 16:58 LACE Index Scoring Tool - Questions: Length of Stay (in days): 1 Acuity (Admit via E.D.?): Yes Comorbidities: Diabetes w/o Complication, Congestive Heart Failure, Chronic Pulmonary Disease, Liver or Renal Disease E.D. Visits: 5 - Answers: Total Score: 13 Risk of Readmission: High Risk Care Management Discharge Reason for Hospitalization: Chest pain Discharge Plan: Karina will be discharged home with no new services. She will resume adult day services at [facility]. Karina will follow up with her PCP and discharge plan of care. She will transport via private vehicle with her daughter Fina. Patient/Family Education Needs: Discharge plan, limitations, follow up plan, Ask Me Three. Services Needed at Discharge: Day Care
--- NOTE | 2019-07-24 16:59 | DSE_ITS ---
Date of service: 07/24/19 Time of Service: 16:59 DS: Diagnosis Discharge Diagnosis (1) Chest pain: Status: Acute Asessment and Plan: musculoskeletal - ACS ruled out (2) Obstructive chronic bronchitis with exacerbation: Status: Acute Asessment and Plan: Finishing therapy (3) Paroxysmal atrial fibrillation: Status: Acute (4) Stroke due to embolism: Status: Acute (5) CKD (chronic kidney disease): Status: Acute (6) CAD (coronary artery disease): Status: Chronic (7) Hypothyroidism: Status: Chronic (8) Diabetes mellitus: Status: Chronic (9) Obesity (BMI 30.0-34.9): Status: Chronic Discharge Plan Disposition Patient Disposition: HOME Condition: Improving Discharge Details Chief Complaint: Chest Pain Clinical Impression: Chest pain Reason For Visit: CP Admit Date/Time: 07/23/19 05:40 Admit Provider: Fredo Weiss Attending Provider: Fredo Weiss Primary Care Provider: Camilla Mcdonald ED Provider: Pedro Nichole [facility] Course Hospital Course: Ms Bean is a 79 year old female with PMHx of CAD s/p 8 stents, as well as non-oxygen dependent COPD, chronic diastolic CHF, paroxysmal afib on eliquis, IDDM2 with neuropathy, Hypertension, hyperlipidemia, CKD III, observed on hospitalist service from 07/23/19 until 07/24/19 for what appears to be musculoskeletal/pleuritic chest pain, which resolved with treatment with scheduled tylenol. Ms Bean ruled out for acute coronary syndrome. She was continued on her prednisone, restarted on doxycycline due to persistent cough, and given one dose of IV lasix for what appears to have been a mild exacerbation of her chronic diastolic CHF. She is being discharged home today with follow up with her PCP. She is to complete a steroid taper, remain on lasix 40 mg PO BID, track daily weights. Her lantus insulin dose is being lowered to 50 mg PO qHS due to a fasting blood sugar of 59. She is medically ready for discharge home today. Home Meds and New Rx's Prescriptions: New acetaminophen [Tylenol] 325 mg Tablet 650 mg PO Q6H Qty: 0 RF: 0 gabapentin 100 mg Capsule 200 mg PO TID Qty: 180 RF: 0 doxycycline hyclate 100 mg capsule 100 mg PO BID Qty: 6 RF: 0 Continued atorvastatin 40 mg Tablet 40 mg PO HS RF: 0 amlodipine [Norvasc] 2.5 mg Tablet 2.5 mg PO DAILY RF: 0 buspirone 7.5 mg Tablet 7.5 mg PO DAILY RF: 0 cholecalciferol (vitamin D3) 1,000 unit Capsule 1,000 unit PO DAILY RF: 0 apixaban 2.5 mg Tablet 2.5 mg PO BID RF: 0 hydralazine 25 mg Tablet 25 mg PO TID RF: 0 isosorbide dinitrate 30 mg Tablet 30 mg PO BID RF: 0 ferrous sulfate 325 mg (65 mg iron) Tablet 325 mg PO DAILY RF: 0 metoprolol succinate 25 mg Tablet Extended Release 24 Hr 25 mg PO DAILY RF: 0 nitroglycerin [Nitrostat] 0.4 mg Tablet, Sublingual 0.4 mg SUBLINGUAL Q5M PRNRF: 0 paroxetine HCl [Paxil] 20 mg Tablet 20 mg PO BID RF: 0 clopidogrel 75 mg Tablet 75 mg PO DAILY RF: 0 dicyclomine 20 mg Tablet 20 mg PO DAILY PRNRF: 0 insulin lispro [Humalog KwikPen Insulin] 100 unit/mL Insulin Pen 15 unit SUBCUT AC RF: 0 furosemide 40 mg Tablet 40 mg PO BID@0830,1600 Qty: 10 RF: 0 Albuterol-Ipatropium 0.5 mg 3 ml inhalation 4-6XD PRN (Reason: shortness of breath/wheezing) Qty: 60 RF: 0 insulin glargine 100 unit/mL Solution 50 unit SUBCUT HS Qty: 0 RF: 0 Novolog U-100 Insulin aspart 100 unit/mL Solution See Rx Instructions .ROUTE .COMPLEX PRN (Reason: Sliding Scale) RF: 0 pantoprazole 40 mg Tablet,Delayed Release (Dr/Ec) 40 mg PO BID@0730,2000 Qty: 60 RF: 0 Changed prednisone 20 mg Tablet See Rx Instructions .ROUTE .COMPLEX Qty: 7 RF: 0 Discontinued gabapentin 300 mg Capsule 900 mg PO TID RF: 0 Lantus Solostar U-100 Insulin 100 unit/mL (3 mL) Insulin Pen 70 units subcut DAILY@0800 Qty: 0 RF: 0 Discharge Instructions Instructions: Chest Pain (DC) Additional Instructions: Return to the hospital with any fever, bleeding, chest pain that changes in character, or shortness of breath. Take tylenol for the next 3 days on the schedule. Finish your prednisone taper and your doxycycline as prescribed. Weigh yourself daily. Inform PCP if your weight is going up by >3 lbs in 3 days. Restrict your diet to 2 grams of sodium/day. Measure your blood sugar first thing in the morning (fasting), before lunch, before dinner, and at bedtime. Inform your PCP if you have ANY hypoglycemic episodes (blood sugars less than 70). Your insulin prescription has changed as has your gabapentin. Care Plan Goals: Resume [employer] day[facility] program. Referrals: Camilla Mcdonald [Primary Care Provider] - Activity:: Activity as Tolerated Equipment/Supplies:: No Equipment Needed Diet:: diabetic 2 gram sodium Discharge Orders Discharge Orders: Discharge Order (Routine); Ordered 07/24/19 Ordered By: Dominique Choi DS: Summary Status at Discharge Functional status at discharge: independent ambulation Overall status at discharge: patient is back to baseline Mental Status: mental status grossly normal Speech and Movement: speech and movement normal Mood: congruent mood Affect: normal affect Exam Narrative Exam Narrative: General: Very pleasant obese female, A&Ox3, appears to be at her baseline HEENT: EOMI, MMM Heart: RRR Lungs: I no longer hear rales; she does have sounds of respiratory secretions before coughing which clear with cough Abdomen: soft, nontender, nondistended Extremities: no e/c/c Psych Mental Status: mental status grossly normal Speech and Movement: speech and movement normal Mood: congruent mood Affect: normal affect DS: Data Vitals/I&O Vitals and I&O: Vital Signs Temperature 36.5 C 07/24/19 15:20 Temperature Source Tympanic 07/24/19 15:20 Pulse 55 L 07/24/19 15:20 Pulse Rhythm Regular 07/24/19 08:00 Pulse 61 07/23/19 06:00 Respiratory Rate 18 07/24/19 15:20 Respiratory Effort Non-Labored 07/24/19 08:00 Respiratory Depth Normal 07/24/19 08:00 Respiratory Pattern Normal 07/24/19 08:00 Blood Pressure 132/64 07/24/19 15:20 Blood Pressure Mean 69 07/23/19 05:46 Blood Pressure Position Supine 07/23/19 03:23 Pulse Oximetry 97 07/24/19 15:20 Oxygen Delivery Method Room Air 07/24/19 15:20 Oxygen Flow Rate 0 07/24/19 15:20 Pain Level 2 07/24/19 16:36 Comment 07/23/19 03:23 Intake & Output 07/23/19 07/24/19 07/24/19 23:59 11:59 23:59 Intake Total 1020 / 1020 260 / 500 240 / 500 Balance 1020 / 1020 260 / 500 240 / 500 Intake: IV Oral 1020 / 1020 240 / 480 240 / 480 Other: Urine Color Yellow Urine Odor Normal Comment pt missed the hat when voiding Voiding Methods Toilet Toilet Data Completed and Pending Completed studies during hospitalization [Text1]: CXR 07/23/19: No acute abnormality. Labs on day of discharge: Labs from last 24 hours 07/24/19 07/24/19 07/24/19 08:25 08:25 08:25 WBC 21.40 H RBC 4.62 Hgb 11.7 L Hct 38.1 MCV 82.5 MCH 25.3 L MCHC 30.7 L RDW 18.9 H Plt Count 411 H MPV 10.2 Immature Gran % 1.2 Neutrophils % 70.3 Lymphocytes % 21.1 Monocytes % 7.0 Eosinophils % 0.3 Basophils % 0.1 Absolute Neutrophils 15.04 H Absolute Lymphocytes 4.52 H Absolute Monocytes 1.50 H Absolute Eosinophils 0.06 Absolute Basophils 0.02 Sodium 141 Potassium 3.6 D Chloride 101 Carbon Dioxide 32.7 H Anion Gap 7.3 BUN 79 H Creatinine 2.07 H Estimated GFR/1.73 m2 23.22 Glucose 119 H D Lactate 1.3 Calcium 8.8 Magnesium 2.2 Procalcitonin < 0.1 PFSH Medical History CAD (coronary artery disease) (Chronic) Carotid stenosis (Acute) s/p bilateral CEA Chronic diastolic CHF (congestive heart failure) (Chronic) Chronic low back pain (Acute) CKD (chronic kidney disease) (Acute) COPD (chronic obstructive pulmonary disease) (Chronic) Depression with anxiety (Acute) Diabetes mellitus (Chronic) 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 mellitus (Acute) Diverticulitis (Chronic) GERD (gastroesophageal reflux disease) (Chronic) History of pulmonary embolism (Acute) Hyperlipidemia (Acute) Hypertension (Chronic) Hypothyroidism (Chronic) Obesity (BMI 30.0-34.9) (Chronic) DANYELLE (obstructive sleep apnea) (Chronic) Paroxysmal atrial fibrillation (Acute) Peripheral vascular disease (Chronic) Rheumatoid arthritis (Chronic) Surgical History H/O cardiac catheterization (Chronic) [address] History of left-sided carotid endarterectomy (Acute) History of right-sided carotid endarterectomy (Acute) S/P arterial stent (Acute) leg x2 S/P arteriovenous (AV) fistula creation (Acute) [facility] Social History Smoking/Tobacco Use Status: Former Tobacco Use Alcohol Intake: never Drug use: Never Substance use type: does not use Household members: children Housing: house Number of Children: 3 current occupation: Retired; attends [employer] during the day Seatbelt use: always Do you feel safe at home: Yes Do you feel safe in your relationship?: Yes
[2019-07-24] MEDS: Furosemide 40 MG TAB PO (17:19)
== END 2019-07-24 18:40 | disposition home or self-care (01) ==
LOC: ER 05:55 → MS 06:12
PROVIDERS: Admitting Provider General Practice; Emergency Provider Emergency Medicine; PCP Nurse Practitioner Family; Visit Provider Internal Medicine
DX: R07.89 Other chest pain (principal); J44.9 Chronic obstructive pulmonary disease, unspecified; I13.0 Hypertensive heart and chronic kidney disease with heart failure and stage 1 through stage 4 chronic kidney disease, or unspecified chronic kidney disease; I50.33 Acute on chronic diastolic (congestive) heart failure; N18.3 Chronic kidney disease, stage 3 (moderate); E11.22 Type 2 diabetes mellitus with diabetic chronic kidney disease; E11.649 Type 2 diabetes mellitus with hypoglycemia without coma; Z79.4 Long term (current) use of insulin; I48.0 Paroxysmal atrial fibrillation; Z79.01 Long term (current) use of anticoagulants; E11.42 Type 2 diabetes mellitus with diabetic polyneuropathy; E78.5 Hyperlipidemia, unspecified; I25.10 Atherosclerotic heart disease of native coronary artery without angina pectoris; Z95.5 Presence of coronary angioplasty implant and graft; E03.9 Hypothyroidism, unspecified
CPT/HCPCS: 36415; 80048; 80053; 84145; 93005; 99217; 99222; 99285; NC; 71045; 83605; 83735; 83880; 84484; 85025; 93010; 99218; G0378; J1940; J7512; J7620

== ENCOUNTER 2019-07-30 01:01 | Outpatient (RCR) | payer MEDICARE, MEDICAID, SELFPAY ==
[2019-07-30] MEDS: IRON SUCROSE COMPLEX 300 MG in Normal Saline 250 ML 176.667 MG IVPB (13:14)
[2019-07-30] MEDS: Normal Saline Flush 10 ML SYR IVP (13:14)
== END 2019-08-02 23:59 | disposition home or self-care (01) ==
LOC: INF 01:01
PROVIDERS: PCP Nurse Practitioner Family; Visit Provider Internal Medicine
DX: N18.4 Chronic kidney disease, stage 4 (severe) (principal); D63.1 Anemia in chronic kidney disease; D50.9 Iron deficiency anemia, unspecified
CPT/HCPCS: 96365; 96366; J1756

== ENCOUNTER 2019-08-03 19:54 | Emergency (ER) | payer MEDICARE, MEDICAID, SELFPAY ==
[2019-08-03 20:02] VITALS: BP 133/65; PULSE 98; RESP 20; TEMP 37; O2SAT 93
[2019-08-03 20:06] VITALS: RESP 20
--- NOTE | 2019-08-03 20:22 | ED.GENADUL_ITS ---
Discharge Plan Disposition Patient Disposition: HOME Condition: Stable Discharge Details Chief Complaint: GenMedical Clinical Impression: General weakness Primary Care Provider: Camilla Mcdonald ED Provider: Rizwan Doe Pendleton Meds and New Rx's Prescriptions: Continued atorvastatin 40 mg Tablet 40 mg PO HS RF: 0 amlodipine [Norvasc] 2.5 mg Tablet 2.5 mg PO DAILY RF: 0 buspirone 7.5 mg Tablet 7.5 mg PO DAILY RF: 0 cholecalciferol (vitamin D3) 1,000 unit Capsule 1,000 unit PO DAILY RF: 0 apixaban 2.5 mg Tablet 2.5 mg PO BID RF: 0 hydralazine 25 mg Tablet 25 mg PO TID RF: 0 isosorbide dinitrate 30 mg Tablet 30 mg PO BID RF: 0 ferrous sulfate 325 mg (65 mg iron) Tablet 325 mg PO DAILY RF: 0 metoprolol succinate 25 mg Tablet Extended Release 24 Hr 25 mg PO DAILY RF: 0 nitroglycerin [Nitrostat] 0.4 mg Tablet, Sublingual 0.4 mg SUBLINGUAL Q5M PRNRF: 0 paroxetine HCl [Paxil] 20 mg Tablet 20 mg PO BID RF: 0 clopidogrel 75 mg Tablet 75 mg PO DAILY RF: 0 dicyclomine 20 mg Tablet 20 mg PO DAILY PRNRF: 0 insulin lispro [Humalog KwikPen Insulin] 100 unit/mL Insulin Pen 15 unit SUBCUT AC RF: 0 furosemide 40 mg Tablet 40 mg PO BID@0830,1600 Qty: 10 RF: 0 Albuterol-Ipatropium 0.5 mg 3 ml inhalation 4-6XD PRN (Reason: shortness of breath/wheezing) Qty: 60 RF: 0 insulin glargine 100 unit/mL Solution 50 unit SUBCUT HS Qty: 0 RF: 0 Novolog U-100 Insulin aspart 100 unit/mL Solution See Rx Instructions .ROUTE .COMPLEX PRN (Reason: Sliding Scale) RF: 0 pantoprazole 40 mg Tablet,Delayed Release (Dr/Ec) 40 mg PO BID@0730,2000 Qty: 60 RF: 0 acetaminophen [Tylenol] 325 mg Tablet 650 mg PO Q6H Qty: 0 RF: 0 gabapentin 100 mg Capsule 200 mg PO TID Qty: 180 RF: 0 prednisone 20 mg Tablet See Rx Instructions .ROUTE .COMPLEX Qty: 7 RF: 0 doxycycline hyclate 100 mg capsule 100 mg PO BID Qty: 6 RF: 0 Discharge Instructions Instructions: Weakness (ED) Additional Instructions: there was no evidence of pneumonia on your xray and your blood work did not show any significant worsening abnormalities follow up with your primary care provider this week if you feel more ill, more short of breath or have fevers return to the emergency department Medical Decision Making 79 yo female with mutliple medical problems comes in with daughter with several days of worsening general fatigue, tiredness and tonight chills. Denies fevers, chest pain, rashes, vomit, headaches. She currently states she feels okay other than some mild weakness. She is speaking in full sentences in no distress. She has clear lungs, mild pitting edema of lower extremities to ankles. Will obtain labs to eval for anemia, thyroid disorder, electrolyte abnormality and cxr to evaluate for infiltrate and UA to eval for uti blood work shows mild elevation in lactate at 2.3 which could be from dehydration, has no evidence of pna, UA has some lueks but has no urinary symptoms. She has no other acute abnormalities. I did offer to admit her for observation given her general weakness but she declined this and has capacity to make her own decisions. I also offered to help arrange for home PT and nursing which she also declined. I advised she f/u wit er pcp and return precautions given Differential Diagnosis Differential Diagnosis: pneumonia, influenza, electrolyte abnormality Medical Records Medical records reviewed: Yes I reviewed the patient's medical records. Imaging Data Radiologic Study: Attestation: I personally reviewed and interpreted this imaging study as follows: Imaging: X-Ray Radiologist's impression: IMPRESSION: 1. Nonspecific interstitial prominence which could be due to scarring, interstitial edema or interstitial inflammatory/infectious process. 2. Appearance consistent with the presence of COPD Lab Data Lab results reviewed: Yes I reviewed the patient's lab results. ECG Data Attestation: I personally reviewed and interpreted this ECG (s) as follows: Prior ECG tracings: not available for review Interpretation: sinus rhythm, rate of 90, pr170, qtc 450 HPI General Date/Time Provider Initiated Documentation: 08/03/19 20:09 . Limitations to Documentation: no limitations . Information obtained by: patient . History of Present Illness 79 year old F presents to the emergency department with the chief complaint of general weakness and fatigue, No relieving factors improve symptom(s), No exacerbating factors reported . Patient did receive the following treatments prior to arrival, none Related Data Home Medications Medication Instructions Recorded Confirmed amlodipine [Norvasc] 2.5 mg PO DAILY 05/20/19 08/03/19 apixaban 2.5 mg PO BID 05/20/19 08/03/19 atorvastatin 40 mg PO HS 05/20/19 08/03/19 buspirone 7.5 mg PO DAILY 05/20/19 08/03/19 cholecalciferol (vitamin D3) 1,000 unit PO DAILY 05/20/19 08/03/19 clopidogrel 75 mg PO DAILY 05/20/19 08/03/19 dicyclomine 20 mg PO DAILY PRN 05/20/19 08/03/19 ferrous sulfate 325 mg PO DAILY 05/20/19 08/03/19 hydralazine 25 mg PO TID 05/20/19 08/03/19 insulin lispro [Humalog KwikPen 15 unit SUBCUT AC 05/20/19 08/03/19 Insulin] isosorbide dinitrate 30 mg PO BID 05/20/19 08/03/19 metoprolol succinate 25 mg PO DAILY 05/20/19 08/03/19 nitroglycerin [Nitrostat] 0.4 mg SUBLINGUAL Q5M PRN 05/20/19 08/03/19 paroxetine HCl [Paxil] 20 mg PO BID 05/20/19 08/03/19 Albuterol-Ipatropium 3 ml INHALATION 4-6XD PRN #60 each 05/26/19 08/03/19 furosemide 40 mg PO BID@0830,1600 #10 tab 05/26/19 08/03/19 insulin glargine 50 unit SUBCUT HS #0 ml 05/26/19 08/03/19 Novolog U-100 Insulin aspart See Rx Instructions .ROUTE 07/13/19 08/03/19 .COMPLEX PRN pantoprazole 40 mg PO BID@0730,2000 #60 tab 07/20/19 08/03/19 acetaminophen [Tylenol] 650 mg PO Q6H #0 tab 07/24/19 08/03/19 doxycycline hyclate 100 mg PO BID #6 cap 07/24/19 08/03/19 gabapentin 200 mg PO TID #180 cap 07/24/19 08/03/19 prednisone See Rx Instructions .ROUTE 07/24/19 08/03/19 .COMPLEX #7 tab Previous Rx's Medication Instructions Recorded Albuterol-Ipatropium 3 ml INHALATION 4-6XD PRN #60 each 05/26/19 furosemide 40 mg PO BID@0830,1600 #10 tab 05/26/19 insulin glargine 50 unit SUBCUT HS #0 ml 05/26/19 pantoprazole 40 mg PO BID@0730,2000 #60 tab 07/20/19 acetaminophen [Tylenol] 650 mg PO Q6H #0 tab 07/24/19 doxycycline hyclate 100 mg PO BID #6 cap 07/24/19 gabapentin 200 mg PO TID #180 cap 07/24/19 prednisone See Rx Instructions .ROUTE 07/24/19 .COMPLEX #7 tab Allergies Allergy/AdvReac Type Severity Reaction Status Date / Time Morphine AdvReac Severe Agitation Uncoded 08/03/19 20:57 General Stated Complaint: RespSymp JOSH: 3 Review of Systems All systems reviewed & are unremarkable except as noted in HPI and below Constitutional Constitutional: Denies fever(s) Cardiovascular Cardiovascular: Denies chest pain Respiratory Respiratory: Denies cough Gastrointestinal Gastrointestinal: Denies abdominal pain, Denies nausea and Denies vomiting Integumentary/Breasts Skin/Breast: Denies rash Endocrine Endocrine: Denies cold intolerance and Denies heat intolerance COUNTS INCLUDE 234 BEDS AT THE [facility] Social History Smoking/Tobacco Use Status: Former Tobacco Use Alcohol Intake: never Drug use: Never Substance use type: does not use Household members: children Housing: house Number of Children: 3 current occupation: Retired; attends [employer] during the day Seatbelt use: always Do you feel safe at home: Yes Do you feel safe in your relationship?: Yes Exam Const General: no acute distress Orientation: alert HENMT Head: normal to inspection Ears: external ears normal General nose exam: external nose normal Mouth: moist mucous membranes Eyes General: appearance normal, both eyes and all related structures Neck Neck: normal visual inspection Resp Effort & Inspection: normal respiratory effort and able to speak in complete sentences Cardio Rate: regular rate Skin General skin exam: no rashes or lesions noted Neuro General: alert and oriented x3 Extrem General: normal to inspection Psych Mental Status: mental status grossly normal Course Vital Signs Vital signs: Vital Signs Temperature 37 C 08/03/19 20:02 Pulse 98 H 08/03/19 20:02 Respiratory Rate 20 08/03/19 20:02 Blood Pressure 133/65 08/03/19 20:02 Pulse Oximetry 93 L 08/03/19 20:02 Temperature 37 C 08/03/19 20:02 Temperature Source Skin 08/03/19 20:02 Pulse 98 H 08/03/19 20:02 Respiratory Rate 20 08/03/19 20:06 Respiratory Effort 08/03/19 20:06 Blood Pressure 133/65 08/03/19 20:02 Blood Pressure Position Sitting 08/03/19 20:02 Pulse Oximetry 93 L 08/03/19 20:02 Oxygen Delivery Method Room Air 08/03/19 20:02 Oxygen Flow Rate 0 08/03/19 20:02 Pain Level 0 08/03/19 20:02 Lab/Test Results Lab/Test Results: 08/03/19 20:11 Blood Blood Culture - Pending 08/03/19 20:11 Blood Blood Culture - Pending
[2019-08-03 20:54] LABS: Abs Immature Grans 0.02 k/cumm (0.0-0.09); Absolute Basophil Count 0.04 k/cumm (0.0-0.2); Absolute Eosinophil Count 0.29 k/cumm (0.0-0.7); Absolute Lymphocyte Count 1.16 k/cumm (1.2-3.4); Absolute Neutrophil Count 7.54 k/cumm (1.2-6.7); Basophils % 0.4; Eosinophils % 2.9; HCT 34.1 % (36.0-46.0); HGB 10.1 g/dL (12.0-15.5); Immature Grans % 0.2; Lymphocytes % 11.8; Mean Corp. HGB Concentration 29.6 g/dL (32.0-36.0); Mean Corpuscular Hemoglobin 25.4 pg (27.0-33.0); Mean Corpuscular Volume 85.9 fL (80-95); Mean Platelet Volume 10.2 fL (8.0-11.0); Monocytes % 8.1; Neutrophils % 76.6; Platelet Count 191 x1000/uL (130-400); RBC 3.97 m/cumm (4.00-5.20); RBC Distribution Width 18.7 % (11.7-14.6); White Blood Cell Count 9.85 k/cumm (4.4-10.8)
--- NOTE | 2019-08-03 20:56 | NUR.NOTE ---
Nursing Note: Lab here for blood cultures.
[2019-08-03 20:58] LABS: Lactate 2.3 mmol/L (0.6-1.4)
[2019-08-03 21:01] LABS: HCO3 (Venous) 37 mmol/L (22-28); TCO2 (Venous) 35 mmol/L (22-29); pCO2 (Venous) 62 mm/Hg (34-47); pH (Venous) 7.39 (7.32-7.43); pO2 (Venous) 29 mm/Hg (28-44)
[2019-08-03 21:02] LABS: BE (Venous) 12.3 mmol/L (-3-3); O2 Sat (Venous) 53 % (70-80)
[2019-08-03 21:07] LABS: INR 1.1 (0.9-1.1); PTT Activated 33.8 sec (21.0-31.4); Prothrombin Time 10.8 sec (9.3-11.0)
[2019-08-03 21:16] LABS: Bilirubin Negative (Negative); Blood Trace-intact (Negative); Clarity Clear (Clear); Glucose 500 mg/dL (Negative); Ketones Negative (Negative); Leukocyte Esterase Small (Negative); Nitrite Negative (Negative); Specific Gravity 1.015 (1.005-1.025); Urobilinogen 0.2 EU/dL (Up TO 0.2); pH 6.5 (5-8)
[2019-08-03 21:16] LABS: ALT 27 U/L (14-59); AST 18 U/L (15-37); Albumin 2.6 g/dL (3.4-5.0); Alkaline Phosphatase 69 U/L (46-116); BUN 41 mg/dL (7-18); Bilirubin, Total 0.4 mg/dL (0.2-1.0); CREATININE 2.28 mg/dL (0.55-1.02); Calcium 8.5 mg/dL (8.5-10.1); Chloride 100 mmol/L (98-107); Estimated GFR 20.77 (mL/min/1.73m2); Glucose 292 mg/dL (74-106); Potassium 3.8 mmol/L (3.5-5.1); Sodium 142 mmol/L (136-145); Total Protein 6.9 g/dL (6.4-8.2)
[2019-08-03 21:17] LABS: Magnesium 1.5 mg/dL (1.8-2.4); NT-proBNP 1184 pg/mL (<300); Troponin I < 0.05 ng/Ml (<0.06)
--- NOTE | 2019-08-03 21:23 | DI.RAD_ITS ---
EXAM: XR CHEST 2V PA LATERAL INDICATION: shortness of breath. COMPARISON: XR PORTABLE CHEST AP from 07/23/2019 TECHNIQUE: 2D digital imaging was performed. FINDINGS: Heart size and pulmonary vasculature are stable and within normal limits. No focal consolidating inf iltrate is present. No pleural effusion or pneumothorax is present. The lungs appear hyperinflated with flattened diaphragms suggesting underlying COPD. There does appear to be mild prominence of the interstitium, likely unchanged compared to prior examination. Degenerative changes are seen in the spine. IMPRESSION: No definite acute pulmonary process.
[2019-08-03 21:29] LABS: Bacteria Rare HPF (Negative); C & S Indicated? C&S Done As Ordered; Crystals Negative HPF (Negative); Epithelial Cells Moderate HPF (Negative); Mucus Negative (Negative); Other Cells Mod Transitional (Negative); RBC 0-2 HPF (0-2); WBC >50 HPF (0-5)
[2019-08-03 21:34] VITALS: BP 168/40; PULSE 86; RESP 20; O2SAT 94
--- NOTE | 2019-08-03 21:38 | DI.VRAD_ITS ---
PROCEDURE INFORMATION: Exam: XR Chest, 2 Views Exam date and time: 08/03/2019 9:26 PM Age: 79 years old Clinical history: Shortness of breath; Patient HX: SOB TECHNIQUE: Imaging protocol: XR of the chest Views: 2 views. COMPARISON: XR PORTABLE CHEST AP 07/23/2019 3:49 AM FINDINGS: Lungs: Interstitial prominence. No parenchymal consolidation. Hyperinflation of the lungs. Pleural space: Unremarkable. No pleural effusion. No pneumothorax. Heart/Mediastinum: Unremarkable. No cardiomegaly. Diaphragm: Flattening of hemidiaphragms. Bones/joints: Unremarkable. IMPRESSION: 1. Nonspecific interstitial prominence which could be due to scarring, interstitial edema or interstitial inflammatory/infectious process. 2. Appearance consistent with the presence of COPD. Dictated and Authenticated by: Mason Lopez MD. Ordering:IKER Astorga MD
[2019-08-03 21:39] LABS: TSH (W/Ref FT4) 3.03 uIU/mL (0.36-3.74)
[2019-08-03 22:15] VITALS: BP 166/47; PULSE 76; RESP 20; O2SAT 93
== END 2019-08-03 22:30 | disposition home or self-care (01) ==
PROVIDERS: Emergency Provider Emergency Medicine; PCP Nurse Practitioner Family
DX: R53.1 Weakness (principal); R74.0 Nonspecific elevation of levels of transaminase and lactic acid dehydrogenase [LDH]; J44.9 Chronic obstructive pulmonary disease, unspecified; Z87.891 Personal history of nicotine dependence; Z96.0 Presence of urogenital implants; E11.22 Type 2 diabetes mellitus with diabetic chronic kidney disease; Z79.4 Long term (current) use of insulin; N18.9 Chronic kidney disease, unspecified
CPT/HCPCS: 36415; 36416; 80053; 82805; 82962; 87040; 87449; 93005; 99285; 71046; 81003; 81015; 83605; 83735; 83880; 84443; 84484; 85025; 85610; 85730; 87086; 93010; 99284

== ENCOUNTER 2019-08-25 12:20 | Outpatient (REF) | payer MEDICARE, MEDICAID, SELFPAY ==
[2019-08-25 12:52] LABS: HCT 35.3 % (36.0-46.0); HGB 10.1 g/dL (12.0-15.5); Mean Corp. HGB Concentration 28.6 g/dL (32.0-36.0); Mean Corpuscular Hemoglobin 25.2 pg (27.0-33.0); Mean Platelet Volume 10.5 fL (8.0-11.0); Platelet Count 455 x1000/uL (130-400); RBC 4.01 m/cumm (4.00-5.20); RBC Distribution Width 19.1 % (11.7-14.6); White Blood Cell Count 10.87 k/cumm (4.4-10.8)
[2019-08-25 13:09] LABS: Anion Gap 4.9 mmol/L (3-11); BUN 44 mg/dL (7-18); CO2 36.1 mmol/L (21.0-32.0); CREATININE 1.71 mg/dL (0.55-1.02); Calcium 9.4 mg/dL (8.5-10.1); Chloride 103 mmol/L (98-107); Estimated GFR 28.95 (mL/min/1.73m2); Glucose 273 mg/dL (74-106); Potassium 3.9 mmol/L (3.5-5.1); Sodium 144 mmol/L (136-145)
[2019-08-25 18:58] LABS: Bilirubin Negative (Negative); Blood Negative (Negative); Clarity Sl Cloudy (Clear); Glucose Negative (Negative); Ketones Negative (Negative); Leukocyte Esterase Large (Negative); Nitrite Negative (Negative); Specific Gravity 1.015 (1.005-1.025); Urobilinogen 0.2 EU/dL (Up TO 0.2); pH 5.5 (5-8)
[2019-08-25 19:13] LABS: Bacteria Few HPF (Negative); C & S Indicated? No/Sq. Contamination; Crystals Negative HPF (Negative); Epithelial Cells Many HPF (Negative); Mucus Negative (Negative); RBC 0-2 HPF (0-2); WBC >50 HPF (0-5)
[2019-08-26 09:38] LABS: TSH (W/Ref FT4) 2.49 uIU/mL (0.36-3.74)
== END 2019-08-25 12:40 ==
LOC: NCHCO 12:20
PROVIDERS: PCP Nurse Practitioner Family; Visit Provider Nurse Practitioner Family
DX: E05.80 Other thyrotoxicosis without thyrotoxic crisis or storm (principal); D63.8 Anemia in other chronic diseases classified elsewhere; N18.3 Chronic kidney disease, stage 3 (moderate); E11.9 Type 2 diabetes mellitus without complications; J44.9 Chronic obstructive pulmonary disease, unspecified; N39.0 Urinary tract infection, site not specified
CPT/HCPCS: 80048; 85027; 81003; 81015; 84443

== ENCOUNTER 2019-09-21 15:36 | Emergency (ER) | payer MEDICARE, MEDICAID, SELFPAY ==
[2019-09-21] VITALS (30 sets, daily range): BP systolic 132–156; BP diastolic 34–61; PULSE 58–64; RESP 20; TEMP 36.5; O2SAT 93–100
[2019-09-21 16:19] LABS: Abs Immature Grans 0.03 k/cumm (0.0-0.09); Absolute Basophil Count 0.08 k/cumm (0.0-0.2); Absolute Eosinophil Count 0.28 k/cumm (0.0-0.7); Absolute Lymphocyte Count 1.71 k/cumm (1.2-3.4); Absolute Monocyte Count 0.62 k/cumm (0.11-0.7); Absolute Neutrophil Count 6.78 k/cumm (1.2-6.7); Basophils % 0.8; Eosinophils % 2.9; HCT 34.1 % (36.0-46.0); Immature Grans % 0.3 %; Mean Corp. HGB Concentration 29.3 g/dL (32.0-36.0); Mean Corpuscular Hemoglobin 25.2 pg (27.0-33.0); Mean Corpuscular Volume 85.9 fL (80-95); Mean Platelet Volume 9.6 fL (8.0-11.0); Monocytes % 6.5; Neutrophils % 71.5; Platelet Count 290 x1000/uL (130-400); RBC 3.97 m/cumm (4.00-5.20); RBC Distribution Width 16.8 % (11.7-14.6)
--- NOTE | 2019-09-21 16:24 | W.ED.GENAD ---
Discharge Plan Disposition Patient Disposition: HOME Discharge Details Chief Complaint: Abd Prob Clinical Impression: Abdominal pain Primary Care Provider: Kristal Quiñonez ED Provider: Michael Whitt Home Meds and New Rx's Prescriptions: Continued atorvastatin 40 mg Tablet 40 mg PO HS RF: 0 amlodipine [Norvasc] 2.5 mg Tablet 2.5 mg PO DAILY RF: 0 cholecalciferol (vitamin D3) 1,000 unit Capsule 1,000 unit PO DAILY RF: 0 hydralazine 25 mg Tablet 25 mg PO TID RF: 0 ferrous sulfate 325 mg (65 mg iron) Tablet 325 mg PO DAILY RF: 0 metoprolol succinate 25 mg Tablet Extended Release 24 Hr 25 mg PO DAILY RF: 0 nitroglycerin [Nitrostat] 0.4 mg Tablet, Sublingual 0.4 mg SUBLINGUAL Q5M PRNRF: 0 clopidogrel 75 mg Tablet 75 mg PO DAILY RF: 0 dicyclomine 20 mg Tablet 20 mg PO DAILY PRNRF: 0 furosemide 40 mg Tablet 40 mg PO BID@0830,1600 Qty: 10 RF: 0 Albuterol-Ipatropium 0.5 mg 3 ml inhalation 4-6XD PRN (Reason: shortness of breath/wheezing) Qty: 60 RF: 0 insulin glargine 100 unit/mL Solution 50 unit SUBCUT HS Qty: 0 RF: 0 pantoprazole 40 mg Tablet,Delayed Release (Dr/Ec) 40 mg PO BID@0730,2000 Qty: 60 RF: 0 acetaminophen [Tylenol] 325 mg Tablet 650 mg PO Q6H Qty: 0 RF: 0 Discontinued amoxicillin-pot clavulanate [Augmentin] 875-125 mg Tablet 1 tab PO BID RF: 0 No Action insulin glargine 100 unit/mL (3 mL) insulin pen 70 unit SC DAILY Qty: 15 RF: 0 isosorbide dinitrate 30 mg tablet 30 mg PO BID Qty: 60 RF: 5 Oxygo OR Caire 3 l intranasal .ATC Qty: 1 RF: 0 gabapentin 100 mg capsule 200 mg PO BID RF: 0 melatonin 3 mg tablet 3 mg PO HS PRNRF: 0 trazodone 50 mg tablet 50 mg PO HS PRNRF: 0 (DME) Oxygen Tank See Rx Instructions .ROUTE .MEDSUPPLY Qty: 1 RF: 0 albuterol sulfate 90 mcg/actuation HFA aerosol inhaler 2 puff IH Q6H PRNRF: 0 Novolog U-100 Insulin aspart 100 unit/mL solution See Rx Instructions .ROUTE .COMPLEX PRN (Reason: Sliding Scale) RF: 0 nitrofurantoin macrocrystal 100 mg capsule 100 mg PO BID Qty: 10 RF: 0 buspirone 7.5 mg tablet 7.5 mg PO DAILY Qty: 90 RF: 0 fluticasone propion-salmeterol [Advair Diskus] 250-50 mcg/dose blister with device 1 inh IH BID RF: 0 levothyroxine 75 mcg capsule 75 mcg PO DAILY RF: 0 paroxetine HCl [Paxil] 20 mg tablet 20 mg PO DAILY RF: 0 apixaban 2.5 mg tablet 2.5 mg PO DAILY RF: 0 prednisone 20 mg tablet 20 mg PO DAILY Qty: 42 RF: 0 Discharge Instructions Instructions: Abdominal Pain (ED) Additional Instructions: Please follow-up tomorrow with your primary care physician as scheduled. Return to the ER immediately for any worsening or new concerning symptoms. Referrals: Kristal Quiñonez DO [Primary Care Provider] - Discharge Data Discharge Date/Time-TO BE ENTERED AT DEPARTURE: 09/21/19 20:10 Medical Decision Making 16:24 -- I arrived in the ED at 16:00, evaluated a patient with chest pain and then evaluated Ms. Bean immediately after. 79-year-old female with multiple medical here with diffuse abdominal pain since this morning. Of note, she is being treated with Augmentin, day 6 for presumed urinary tract infection. Patient is diffusely tender with no peritoneal findings. Labs reviewed and nondiagnostic -normal LFTs, normal lipase, no leukocytosis. Chronic anemia unchanged noted. Chronic renal disease noted. CT of the abdomen pelvis was reviewed and interpreted by radiology: IMPRESSION: 1. Marked diverticulosis predominantly in the sigmoid colon with no evidence of diverticulitis or other explanation for the patient's symptoms. 2. Bilateral renal lesions including high-density cysts on the right and 14 mm indeterminant left upper pole. Recommend MR without and with contrast or CT without and with contrast. MR is preferred for masses under 1.5 cm. 3. Nonspecific peripheral pulmonary interstitial prominence right lung base. Imaging and recommendations for follow-up imaging reviewed with the patient. I obtained and reviewed outside hospital records from [facility] ED visit 09/16/2019. ED record incomplete but urinalysis did reveal 20-50 WBCs. Subsequent urine culture has been negative. -- All result discussed with patient. Patient is tolerating liquids. Patient has follow-up with her primary care physician tomorrow and I encouraged her to keep this appointment. Plan to maintain liquid diet tonight. Disposition decision was made weighing the risks and benefits of hospitalization versus outpatient treatment, the risk for further decompensation, and the patient's wishes. Ms. Bean was stable and requested discharge. Prior to discharge, my usual and customary return precautions were reviewed with the patient - this included follow-up instructions and reason to return to the emergency department if condition worsens, does not improve as expected, or other new concerns arise. HPI General Mode of arrival: ambulatory. Date/Time Provider Initiated Documentation: 09/21/19 15:36. Limitations to Documentation: no limitations. Information obtained by: patient, family and EMS. HPI Narrative: 79-year-old female with multiple medical problems including prior history of chronic kidney disease, COPD, CVA, presents today with chief complaint of abdominal pain. Patient notes that abdominal pain started this morning and has persisted. Pain is localized diffusely. She knows she had a small bowel movement here in the emergency department today. Last normal bowel movement was yesterday. She has had no bright red blood per rectum or melena. She does have some associated nausea. Also of note, over the past 3 days she generally has not been feeling well. She had nausea and vomiting on and Sunday. She did take some Gas-X today which did not help her abdominal discomfort. Patient apparently was seen at outside hospital emergency department 09/16/2019 and diagnosed with urinary tract infection and started on Augmentin which she has been taking over the past 5 days. Related Data Home Medications Medication Instructions Recorded Confirmed amlodipine [Norvasc] 2.5 mg PO DAILY 05/20/19 10/03/19 atorvastatin 40 mg PO HS 05/20/19 10/03/19 cholecalciferol (vitamin D3) 1,000 unit PO DAILY 05/20/19 10/03/19 clopidogrel 75 mg PO DAILY 05/20/19 10/03/19 dicyclomine 20 mg PO DAILY PRN 05/20/19 10/03/19 ferrous sulfate 325 mg PO DAILY 05/20/19 10/03/19 hydralazine 25 mg PO TID 05/20/19 10/03/19 metoprolol succinate 25 mg PO DAILY 05/20/19 10/03/19 nitroglycerin [Nitrostat] 0.4 mg SUBLINGUAL Q5M PRN 05/20/19 10/03/19 Albuterol-Ipatropium 3 ml INHALATION 4-6XD PRN #60 each 05/26/19 10/03/19 furosemide 40 mg PO BID@0830,1600 #10 tab 05/26/19 10/03/19 insulin glargine 50 unit SUBCUT HS #0 ml 05/26/19 10/03/19 pantoprazole 40 mg PO BID@0730,2000 #60 tab 07/20/19 10/03/19 acetaminophen [Tylenol] 650 mg PO Q6H #0 tab 07/24/19 10/03/19 apixaban 2.5 mg tablet 2.5 mg PO DAILY tab 10/02/19 10/03/19 fluticasone 250 mcg-salmeterol 50 1 inh IH BID 10/02/19 10/03/19 mcg/dose blistr powdr for inhalation levothyroxine 75 mcg capsule 75 mcg PO DAILY 10/02/19 10/03/19 paroxetine HCl 20 mg tablet 20 mg PO DAILY tab 10/02/19 10/03/19 Oxygen #1 each 10/03/19 10/03/19 albuterol sulfate 90 mcg/actuation 2 puff IH Q6H PRN 10/03/19 10/03/19 aerosol inhaler buspirone 7.5 mg tablet 7.5 mg PO DAILY #90 tab 10/03/19 10/03/19 gabapentin 100 mg capsule 200 mg PO BID cap 10/03/19 10/03/19 insulin aspart U-100 100 unit/mL See Rx Instructions .ROUTE 10/03/19 10/03/19 subcutaneous solution .COMPLEX PRN melatonin 3 mg tablet 3 mg PO HS PRN 10/03/19 10/03/19 nitrofurantoin macrocrystal 100 mg 100 mg PO BID #10 cap 10/03/19 10/03/19 capsule trazodone 50 mg tablet 50 mg PO HS PRN tab 10/03/19 10/03/19 prednisone 20 mg PO DAILY #42 tab 10/09/19 Oxygo OR Caire 3 l INTRANASAL .ATC #1 device 10/10/19 10/10/19 insulin glargine 100 unit/mL (3 70 unit SC DAILY #15 ml 10/10/19 10/10/19 mL) subcutaneous pen isosorbide dinitrate 30 mg tablet 30 mg PO BID #60 tab 10/10/19 10/10/19 Previous Rx's Medication Instructions Recorded Albuterol-Ipatropium 3 ml INHALATION 4-6XD PRN #60 each 05/26/19 furosemide 40 mg PO BID@0830,1600 #10 tab 05/26/19 insulin glargine 50 unit SUBCUT HS #0 ml 05/26/19 pantoprazole 40 mg PO BID@0730,2000 #60 tab 07/20/19 acetaminophen [Tylenol] 650 mg PO Q6H #0 tab 07/24/19 buspirone 7.5 mg tablet 7.5 mg PO DAILY #90 tab 10/03/19 nitrofurantoin macrocrystal 100 mg 100 mg PO BID #10 cap 10/03/19 capsule prednisone 20 mg PO DAILY #42 tab 10/09/19 Oxygo OR Caire 3 l INTRANASAL .ATC #1 device 10/10/19 insulin glargine 100 unit/mL (3 70 unit SC DAILY #15 ml 10/10/19 mL) subcutaneous pen isosorbide dinitrate 30 mg tablet 30 mg PO BID #60 tab 10/10/19 Allergies Allergy/AdvReac Type Severity Reaction Status Date / Time Morphine AdvReac Severe Agitation Uncoded 10/09/19 06:44 General Stated Complaint: Abd Prob JOSH: 3 Review of Systems All systems reviewed & are unremarkable except as noted in HPI and below Constitutional Constitutional: Denies fever(s) Gastrointestinal Gastrointestinal: Reports as per HPI FORMERLY [facility], [facility]1983 Medical History Acute exacerbation of chronic obstructive pulmonary disease (COPD) (Acute) Acute kidney injury superimposed on chronic kidney disease (Inactive) Acute on chronic diastolic (congestive) heart failure (Acute) DARION (acute kidney injury) (Inactive) Atypical chest pain (Acute) CAD (coronary artery disease) (Chronic) Carotid stenosis (Acute) s/p bilateral CEA Chest pain (Acute) Chronic diastolic CHF (congestive heart failure) (Chronic) Chronic low back pain (Acute) CKD (chronic kidney disease) (Acute) Contracture, left hand (Acute) COPD (chronic obstructive pulmonary disease) (Chronic) COPD with acute exacerbation (Inactive) Depression with anxiety (Acute) Diabetes mellitus (Chronic) 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 mellitus (Acute) Discharge planning issues (Inactive) Diverticulitis (Chronic) DVT prophylaxis (Acute) DVT prophylaxis (Acute) Functional tremor (Acute) GERD (gastroesophageal reflux disease) (Chronic) HCAP (healthcare-associated pneumonia) (Suspected) History of pulmonary embolism (Acute) Hyperlipidemia (Acute) Hypertension (Chronic) Hypothyroidism (Chronic) Iron deficiency (Acute) Laryngitis (Acute) Obesity (BMI 30.0-34.9) (Chronic) Obstructive chronic bronchitis with exacerbation (Acute) DANYELLE (obstructive sleep apnea) (Chronic) Paroxysmal atrial fibrillation (Acute) Peripheral vascular disease (Chronic) Rheumatoid arthritis (Chronic) SOB (shortness of breath) (Acute) Stroke due to embolism (Acute) TIA (transient ischemic attack) (Acute) Tremor (Acute) Surgical History H/O cardiac catheterization (Chronic) [address] History of left-sided carotid endarterectomy (Acute) History of right-sided carotid endarterectomy (Acute) S/P arterial stent (Acute) leg x2 S/P arteriovenous (AV) fistula creation (Acute) [facility] Family History Sister Cancer Diabetes Brother Cancer Diabetes Other Heart disease Social History Smoking/Tobacco Use Status: Former Tobacco Use Alcohol Intake: never Drug use: Never Substance use type: does not use Adopted: No Foster care: No Household members: children Housing: house Number of Children: 3 Do you need help understanding health information?: Always current occupation: Retired; attends [employer] during the day Sexually active: No Do you think of yourself as: straight/heterosexual Current gender identity: female Seatbelt use: always Do you feel safe at home: Yes Do you feel safe in your relationship?: Yes Exam Const General: cooperative and no acute distress HENMT Mouth: moist mucous membranes Eyes Conjunctivae: normal conjunctivae Sclera: normal sclerae Neck Neck: trachea midline and supple Resp Auscultation: clear to auscultation bilaterally, no rales, no rhonchi and no wheezes Cardio Jugular venous pressure: no JVD Rate: regular rate and not tachycardic Rhythm: regular rhythm GI Inspection: non-distended Palpation: soft, no hepatosplenomegaly, not firm, no guarding, no masses, no pulsatile masses, not rigid, tender (Diffuse) with no rebound tenderness and No ascites Auscultation: normal bowel sounds Skin General skin exam: no rashes or lesions noted Neuro General: alert, awake, oriented x3 and tone normal Extrem General: no edema Psych Appearance: grossly normal Mental Status: mental status grossly normal Course Vital Signs Vital signs: Vital Signs Temperature 36.5 C 09/21/19 15:39 Pulse 61 09/21/19 15:39 Respiratory Rate 09/21/19 15:39 Blood Pressure 138/42 L 09/21/19 15:39 Pulse Oximetry 95 09/21/19 15:39 Temperature 36.5 C 09/21/19 15:39 Temperature Source Skin 09/21/19 15:39 Pulse 61 09/21/19 15:39 Respiratory Rate 09/21/19 15:39 Respiratory Effort Non-Labored 09/21/19 15:50 Blood Pressure 138/42 L 09/21/19 15:39 Pulse Oximetry 95 09/21/19 15:39 Oxygen Delivery Method Nasal Cannula 09/21/19 15:39 Oxygen Flow Rate 2 09/21/19 15:39 Pain Level 10 09/21/19 15:39 Comment 09/21/19 15:39
[2019-09-21 16:32] LABS: ALT 18 U/L (14-59); AST 19 U/L (15-37); Albumin 3.3 g/dL (3.4-5.0); Alkaline Phosphatase 92 U/L (46-116); Anion Gap 4.5 mmol/L (3-11); BUN 37 mg/dL (7-18); Bilirubin, Total 0.2 mg/dL (0.2-1.0); CO2 37.5 mmol/L (21.0-32.0); CREATININE 1.69 mg/dL (0.55-1.02); Calcium 9.4 mg/dL (8.5-10.1); Chloride 102 mmol/L (98-107); Estimated GFR 29.34 (mL/min/1.73m2); Glucose 168 mg/dL (74-106); Sodium 144 mmol/L (136-145); Total Protein 7.7 g/dL (6.4-8.2)
[2019-09-21 16:43] LABS: Bilirubin Negative (Negative); Blood Negative (Negative); Clarity Clear (Clear); Glucose Negative (Negative); Ketones Negative (Negative); Leukocyte Esterase Negative (Negative); Nitrite Negative (Negative); Specific Gravity 1.015 (1.005-1.025); Urobilinogen 0.2 EU/dL (Up TO 0.2)
[2019-09-21 17:03] LABS: Lactate 0.9 mmol/L (0.6-1.4)
[2019-09-21 17:14] LABS: Lipase 213 U/L (73-393)
--- NOTE | 2019-09-21 17:38 | DI.CT_ITS ---
EXAM: CT ABDOMEN PELVIS WO CLINICAL HISTORY: diffuse abdominal pain and tenderness TECHNIQUE: CT examination of the abdomen and pelvis was performed without contrast administration. COMPARISON: No exams were available for comparison FINDINGS: Images obtained through the lung bases are unremarkable. Liver and spleen have an unremarkable non contrast appearance as does the pancreas. No biliary dilatation seen and gallbladder is CT normal. Small fat containing umbilical hernia noted. No abdominal or pelvic adenopathy. Abdominal aorta is of normal diameter. Appendix is normal. Andrey ed colonic diverticulosis without diverticulitis. Adrenals are normal in appearance bilaterally. No urinary tract calcification or obstruction. There are multiple rounded renal cortical lesions, most of which probably represent cysts. There is a hyper attenuating right renal mass measuring 21-22 millimeters in diameter with Hounsfield units in the mid 40 attenuation range. 15 millimeter left renal cortical lesion shows attenuation in the mid 20 Hounsfield units range. These findings are consistent with indeterminate renal lesions. Additio nal evaluation with MR or CT including multiphasic post contrast imaging recommended. IMPRESSION: No evidence of acute urinary tract obstruction. Indeterminate bilateral renal lesions, additional ev aluation with renal protocol MR or CT recommended.
--- NOTE | 2019-09-21 18:10 | DI.VRAD_ITS ---
PROCEDURE INFORMATION: Exam: CT Abdomen And Pelvis Without Contrast Exam date and time: 09/21/2019 5:33 PM Age: 79 years old Clinical indication: Abdominal pain; Generalized; Patient HX: Diffuse abd pain and tenderness TECHNIQUE: Imaging protocol: Computed tomography of the abdomen and pelvis without contrast. Radiation optimization: All CT scans at this facility use at least one of these dose optimization techniques: automated exposure control; mA and/or kV adjustment per patient size (includes targeted exams where dose is matched to clinical indication); or iterative reconstruction. COMPARISON: No relevant prior studies available. FINDINGS: Lungs: There is minimal interstitial prominence in the lung bases in the periphery of the visualized portions of the right lower and middle lobes. This is nonspecific but can be seen with pulmonary fibrosis. The left lung base is unremarkable. Liver: Normal. No mass. Gallbladder and bile ducts: Normal. No calcified stones. No ductal dilation. Pancreas: Normal. No ductal dilation. Spleen: Normal. No splenomegaly. Adrenals: Normal. No mass. Kidneys and ureters: There are multiple right renal cysts including 2 high-density cysts one of which measures 2 cm in diameter and projects posteriorly from the interpolar region and the other anterolaterally measuring 5 mm in diameter. In the left kidney there is a 14 mm indeterminant (23 Hounsfield units) partially exophytic lesion (series 2, image 31). No renal calculus or hydronephrosis on either side. There is mild perinephric fat stranding bilaterally. Stomach and bowel: There are numerous colonic diverticula predominantly on the left and most pronounced in the sigmoid colon. There is no evidence of diverticulitis. Appendix: The appendix is normal. Intraperitoneal space: Unremarkable. No free air. No significant fluid collection. Vasculature: Marked atherosclerosis. No abdominal aortic aneurysm. Lymph nodes: Unremarkable. No enlarged lymph nodes. Bladder: Unremarkable as visualized. Reproductive: Unremarkable as visualized. Bones/joints: Mild convex right curvature of the lumbar spine with degenerative disc disease most severe at L3-4 on the left side and in the lower thoracic spine. No acute fracture. No lytic or sclerotic bone lesion. Minimal anterior spondylolisthesis of L5 on S1 secondary to spondyloarthropathy. Soft tissues: Unremarkable. IMPRESSION: 1. Marked diverticulosis predominantly in the sigmoid colon with no evidence of diverticulitis or other explanation for the patient's symptoms. 2. Bilateral renal lesions including high-density cysts on the right and 14 mm indeterminant left upper pole. Recommend MR without and with contrast or CT without and with contrast. MR is preferred for masses under 1.5 cm. 3. Nonspecific peripheral pulmonary interstitial prominence right lung base. Dictated and Authenticated by: Sravan Cruz MD. Ordering:NAZARIO Rodriguez MD
--- NOTE | 2019-09-21 19:25 | NUR.NOTE ---
Pt tolerating po fluids. up to commode with 1 assist. 2nd trop drawn.
[2019-09-21 19:39] LABS: Troponin I < 0.05 ng/Ml (<0.06)
== END 2019-09-21 20:10 | disposition home or self-care (01) ==
PROVIDERS: Emergency Provider Student in an Organized Health Care Education/Training Program; PCP Student in an Organized Health Care Education/Training Program
DX: R10.9 Unspecified abdominal pain (principal); E11.22 Type 2 diabetes mellitus with diabetic chronic kidney disease; N18.9 Chronic kidney disease, unspecified; I12.9 Hypertensive chronic kidney disease with stage 1 through stage 4 chronic kidney disease, or unspecified chronic kidney disease; Z79.4 Long term (current) use of insulin; J44.9 Chronic obstructive pulmonary disease, unspecified; Z87.891 Personal history of nicotine dependence; E11.42 Type 2 diabetes mellitus with diabetic polyneuropathy
CPT/HCPCS: 80053; 83690; 99284; 74176; 81003; 83605; 84484; 85025

== ENCOUNTER 2019-10-03 13:06 | Outpatient (REF) | payer MEDICARE, MEDICAID, SELFPAY | END 2019-10-03 13:26 | LOC: LBN 13:06 | PROVIDERS: PCP Student in an Organized Health Care Education/Training Program; Visit Provider Student in an Organized Health Care Education/Training Program | DX: N39.0 Urinary tract infection, site not specified (principal) | CPT/HCPCS: 87077; 87086 ==

== ENCOUNTER 2019-10-09 06:16 | Emergency (ER) | payer MEDICARE, MEDICAID, SELFPAY ==
[2019-10-09] VITALS (20 sets, daily range): BP systolic 111–145; BP diastolic 36–57; PULSE 60–70; RESP 4–24; TEMP 36.2–36.7; O2SAT 91–100
--- NOTE | 2019-10-09 06:28 | ED.GENADUL_ITS ---
Discharge Plan Disposition Patient Disposition: HOME Condition: Good Discharge Details Chief Complaint: Chest Pain Clinical Impression: Chest discomfort, Acute exacerbation of chronic obstructive pulmonary disease Primary Care Provider: Kristal Quiñonez ED Provider: Armin Montes Home Meds and New Rx's Prescriptions: New prednisone 20 mg tablet 20 mg PO DAILY Qty: 42 RF: 0 No Action insulin glargine 100 unit/mL (3 mL) insulin pen 70 unit SC DAILY Qty: 15 RF: 0 isosorbide dinitrate 30 mg tablet 30 mg PO BID Qty: 60 RF: 5 Oxygo OR Caire 3 l intranasal .ATC Qty: 1 RF: 0 gabapentin 100 mg capsule 200 mg PO BID RF: 0 melatonin 3 mg tablet 3 mg PO HS PRNRF: 0 trazodone 50 mg tablet 50 mg PO HS PRNRF: 0 (DME) Oxygen Tank See Rx Instructions .ROUTE .MEDSUPPLY Qty: 1 RF: 0 albuterol sulfate 90 mcg/actuation HFA aerosol inhaler 2 puff IH Q6H PRNRF: 0 Novolog U-100 Insulin aspart 100 unit/mL solution See Rx Instructions .ROUTE .COMPLEX PRN (Reason: Sliding Scale) RF: 0 nitrofurantoin macrocrystal 100 mg capsule 100 mg PO BID Qty: 10 RF: 0 buspirone 7.5 mg tablet 7.5 mg PO DAILY Qty: 90 RF: 0 fluticasone propion-salmeterol [Advair Diskus] 250-50 mcg/dose blister with device 1 inh IH BID RF: 0 levothyroxine 75 mcg capsule 75 mcg PO DAILY RF: 0 paroxetine HCl [Paxil] 20 mg tablet 20 mg PO DAILY RF: 0 apixaban 2.5 mg tablet 2.5 mg PO DAILY RF: 0 atorvastatin 40 mg Tablet 40 mg PO HS RF: 0 amlodipine [Norvasc] 2.5 mg Tablet 2.5 mg PO DAILY RF: 0 cholecalciferol (vitamin D3) 1,000 unit Capsule 1,000 unit PO DAILY RF: 0 hydralazine 25 mg Tablet 25 mg PO TID RF: 0 ferrous sulfate 325 mg (65 mg iron) Tablet 325 mg PO DAILY RF: 0 metoprolol succinate 25 mg Tablet Extended Release 24 Hr 25 mg PO DAILY RF: 0 nitroglycerin [Nitrostat] 0.4 mg Tablet, Sublingual 0.4 mg SUBLINGUAL Q5M PRNRF: 0 clopidogrel 75 mg Tablet 75 mg PO DAILY RF: 0 dicyclomine 20 mg Tablet 20 mg PO DAILY PRNRF: 0 furosemide 40 mg Tablet 40 mg PO BID@0830,1600 Qty: 10 RF: 0 Albuterol-Ipatropium 0.5 mg 3 ml inhalation 4-6XD PRN (Reason: shortness of breath/wheezing) Qty: 60 RF: 0 insulin glargine 100 unit/mL Solution 50 unit SUBCUT HS Qty: 0 RF: 0 pantoprazole 40 mg Tablet,Delayed Release (Dr/Ec) 40 mg PO BID@0730,2000 Qty: 60 RF: 0 acetaminophen [Tylenol] 325 mg Tablet 650 mg PO Q6H Qty: 0 RF: 0 Discharge Instructions Instructions: COPD (Chronic Obstructive Pulmonary Disease) (ED) Additional Instructions: At this time your cardiac work-up shows no signs of significant problems with your heart. Your chest x-ray shows no evidence of pneumonia. I feel your signs and symptoms are concerning for COPD exacerbation probably from a small virus. Please take your breathing treatments every 4 hours for the next 2 days, please take the prednisone as directed. Please follow-up with your primary care provider at your scheduled appointment tomorrow. If you notice any worsening of your symptoms, or any new symptoms such as vomiting, diarrhea, fever, chills, shortness of breath, chest pain, numbness, weakness, or fainting , please return immediately to the emergency department for reevaluation. Please follow up with your primary care provider as soon as possible for reassessment and reevaluation. As always, it was a pleasure participating in your medical care today. Referrals: Kristal Quiñonez DO [Primary Care Provider] - Discharge Data Discharge Date/Time-TO BE ENTERED AT DEPARTURE: 10/09/19 12:04 Medical Decision Making <Pedro Nichole MD - Last Filed: 10/13/19 23:10> Patient presenting with complaint of difficulty breathing and chest heaviness. She has history of COPD, CHF, PE. She has been taking Eliquis and Plavix. Should not have recurrent PE. EKG shows no acute ST changes. IV placed and will get laboratory studies. Chest x-ray ordered. DuoNeb and albuterol neb ordered. Patient initial work-up is unremarkable. Her white count is normal. Hemoglobin is around her baseline with no significant drop. Chemistries are fine with her baseline creatinine of 2. Glucose a little up at 281. We will give her her morning insulin dosing. First troponin is negative. BNP is normal. Chest x- ray most likely with chronic changes. Discussed with radiology. We will try to get a good PA and lateral. Patient herself is feeling much better after the treatment. Will dose with steroids. Will repeat albuterol neb. 4-hour troponin do just before 11. If remains negative will likely be able to go home on steroid and already has nebs and oxygen at home. Patient will be signed over to Dr. Montes. Medical Records Medical records reviewed: Yes I reviewed the patient's medical records. ECG Data Attestation: I personally reviewed and interpreted this ECG (s) as follows: Prior ECG tracings: not available for review Interpretation: Sinus rhythm at 69. Left axis. Normal ST segments. <Armin Montes, DO - Last Filed: 10/09/19 11:44> Patient was signed out to me by my colleague Dr. Nichole pending repeat troponin. Signs and symptoms are inconsistent with cardiac etiology as her symptoms improved with her breathing treatments. Dr. Nichole recommended discharge after repeat troponin EKG and reassessment. On repeat assessment the patient continues to feel very well, repeat EKG, repeat troponin are both normal. She is feeling well and would like to go home. Symptoms are clinically inconsistent with ACS, and clinically consistent with mild COPD exacerbation. We will give a prednisone taper, and she has breathing treatments at home. Discussed red flags which to return. She does have PCP follow-up tomorrow morning. Additionally the patient takes her blood thinners, and her symptoms are notably inconsistent with PE or dissection. Repeat chest x-ray negative for acute process per radiology. I have extensively reviewed the treatment plan and discharge instructions with the patient and their family. I have addressed all patient concerns at this time. The patient and family was made aware of what symptoms to monitor for that would warrant a return to the emergency department. Discussed the plan with the patient and family, they demonstrate verbal understanding and agreement with our assessment and plan at this time. EKG 10: 58 Rate 63, [place] 188, QTc 457, QRS 104, sinus rhythm, incomplete right bundle branch block, no significant ST elevations or depressions, no evidence of STEMI. No significant acute changes from prior EKG earlier today. FINDINGS: The heart is at the upper limits of normal in size. There appear to be pulmonary fibrotic changes. No focal consolidation. No pleural effusion. IMPRESSION: No evidence of acute intrapulmonary process. HPI <Pedro Nichole MD - Last Filed: 10/13/19 23:10> General Mode of arrival: EMS . Date/Time Provider Initiated Documentation: 10/09/19 06:28 . Limitations to Documentation: no limitations . Information obtained by: patient, family and old records reviewed . HPI Narrative: Patient presents to ED from home with complaint of difficulty breathing and chest heaviness. She felt okay last night. She used her nebulizer last night before bed. At 5 AM this morning she was short of breath. Complains of inability to take a deep breath. Denies fever, cough, runny nose. Denies any vomiting or abdominal pain. Has prior history of cardiac disease, CHF, PE. She is on Eliquis and Plavix. She is chronically on 3 L nasal cannula oxygen. Related Data Home Medications Medication Instructions Recorded Confirmed amlodipine [Norvasc] 2.5 mg PO DAILY 05/20/19 10/03/19 atorvastatin 40 mg PO HS 05/20/19 10/03/19 cholecalciferol (vitamin D3) 1,000 unit PO DAILY 05/20/19 10/03/19 clopidogrel 75 mg PO DAILY 05/20/19 10/03/19 dicyclomine 20 mg PO DAILY PRN 05/20/19 10/03/19 ferrous sulfate 325 mg PO DAILY 05/20/19 10/03/19 hydralazine 25 mg PO TID 05/20/19 10/03/19 metoprolol succinate 25 mg PO DAILY 05/20/19 10/03/19 nitroglycerin [Nitrostat] 0.4 mg SUBLINGUAL Q5M PRN 05/20/19 10/03/19 Albuterol-Ipatropium 3 ml INHALATION 4-6XD PRN #60 each 05/26/19 10/03/19 furosemide 40 mg PO BID@0830,1600 #10 tab 05/26/19 10/03/19 insulin glargine 50 unit SUBCUT HS #0 ml 05/26/19 10/03/19 pantoprazole 40 mg PO BID@0730,2000 #60 tab 07/20/19 10/03/19 acetaminophen [Tylenol] 650 mg PO Q6H #0 tab 07/24/19 10/03/19 apixaban 2.5 mg tablet 2.5 mg PO DAILY tab 10/02/19 10/03/19 fluticasone 250 mcg-salmeterol 50 1 inh IH BID 10/02/19 10/03/19 mcg/dose blistr powdr for inhalation levothyroxine 75 mcg capsule 75 mcg PO DAILY 10/02/19 10/03/19 paroxetine HCl 20 mg tablet 20 mg PO DAILY tab 10/02/19 10/03/19 Oxygen #1 each 10/03/19 10/03/19 albuterol sulfate 90 mcg/actuation 2 puff IH Q6H PRN 10/03/19 10/03/19 aerosol inhaler buspirone 7.5 mg tablet 7.5 mg PO DAILY #90 tab 10/03/19 10/03/19 gabapentin 100 mg capsule 200 mg PO BID cap 10/03/19 10/03/19 insulin aspart U-100 100 unit/mL See Rx Instructions .ROUTE 10/03/19 10/03/19 subcutaneous solution .COMPLEX PRN melatonin 3 mg tablet 3 mg PO HS PRN 10/03/19 10/03/19 nitrofurantoin macrocrystal 100 mg 100 mg PO BID #10 cap 10/03/19 10/03/19 capsule trazodone 50 mg tablet 50 mg PO HS PRN tab 10/03/19 10/03/19 prednisone 20 mg PO DAILY #42 tab 10/09/19 Oxygo OR Caire 3 l INTRANASAL .ATC #1 device 10/10/19 10/10/19 insulin glargine 100 unit/mL (3 70 unit SC DAILY #15 ml 10/10/19 10/10/19 mL) subcutaneous pen isosorbide dinitrate 30 mg tablet 30 mg PO BID #60 tab 10/10/19 10/10/19 Previous Rx's Medication Instructions Recorded Albuterol-Ipatropium 3 ml INHALATION 4-6XD PRN #60 each 05/26/19 furosemide 40 mg PO BID@0830,1600 #10 tab 05/26/19 insulin glargine 50 unit SUBCUT HS #0 ml 05/26/19 pantoprazole 40 mg PO BID@ #60 tab 07/20/19 acetaminophen [Tylenol] 650 mg PO Q6H #0 tab 07/24/19 buspirone 7.5 mg tablet 7.5 mg PO DAILY #90 tab 10/03/19 nitrofurantoin macrocrystal 100 mg 100 mg PO BID #10 cap 10/03/19 capsule prednisone 20 mg PO DAILY #42 tab 10/09/19 Oxygo OR Caire 3 l INTRANASAL .ATC #1 device 10/10/19 insulin glargine 100 unit/mL (3 70 unit SC DAILY #15 ml 10/10/19 mL) subcutaneous pen isosorbide dinitrate 30 mg tablet 30 mg PO BID #60 tab 10/10/19 Allergies Allergy/AdvReac Type Severity Reaction Status Date / Time Morphine AdvReac Severe Agitation Uncoded 10/09/19 06:44 General JOSH: 3 Review of Systems <Pedro Nichole MD - Last Filed: 10/13/19 23:10> Narrative: 06/16 Review of Systems completed and is negative except as stated above in HPI (Systems reviewed: Const, Eyes, ENT, Resp, CV, GI, , MSK, Skin, Neuro) PFSH <Pedro Nichole MD - Last Filed: 10/13/19 23:10> Medical History CAD (coronary artery disease) (Chronic) Carotid stenosis (Chronic) s/p bilateral CEA Chronic diastolic CHF (congestive heart failure) (Chronic) Chronic low back pain (Chronic) CKD (chronic kidney disease) (Chronic) COPD (chronic obstructive pulmonary disease) (Chronic) Depression with anxiety (Chronic) Diabetes mellitus (Chronic) 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 mellitus (Chronic) Diverticulitis (Chronic) Functional tremor (Chronic) GERD (gastroesophageal reflux disease) (Chronic) History of pulmonary embolism (Chronic) Hyperlipidemia (Chronic) Hypertension (Chronic) Hypothyroidism (Chronic) Iron deficiency (Chronic) Obesity (BMI 30.0-34.9) (Chronic) DANYELLE (obstructive sleep apnea) (Chronic) Paroxysmal atrial fibrillation (Chronic) Peripheral vascular disease (Chronic) Rheumatoid arthritis (Chronic) 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) TIA (transient ischemic attack) (Chronic) Surgical History H/O cardiac catheterization (Chronic) [address] History of left-sided carotid endarterectomy (Chronic) History of right-sided carotid endarterectomy (Chronic) S/P arterial stent (Chronic) leg x2 S/P arteriovenous (AV) fistula creation (Chronic) [facility] in [place] Social History Smoking/Tobacco Use Status: Former Tobacco Use Alcohol Intake: never Drug use: Never Substance use type: does not use Adopted: No Foster care: No Household members: children Housing: house Number of Children: 3 Do you need help understanding health information?: Always current occupation: Retired; attends [employer] during the day Sexually active: No Do you think of yourself as: straight/heterosexual Current gender identity: female Seatbelt use: always Do you feel safe at home: Yes Do you feel safe in your relationship?: Yes Exam <Pedro Nichole MD - Last Filed: 10/13/19 23:10> Narrative Exam Narrative: Vitals: Afebrile. Normal vitals and normal O2 saturation on 3 L. Const: Obese female in NAD. HEENT: NC/AT. Normal facial exam. Eyes: Normal conjunctiva and sclera. Neck: Supple. Trachea midline. Lungs: Normal respiratory effort. Lungs are diminished with rhonchi louder in the left than right but present throughout. Cor: RRR without murmur/gallop. GI: Soft. NT/ND. No guarding or rebound. Neuro: A+O x 3. Normal speech, mentation. Cranial nerves II - XII grossly intact. No gross motor or sensory deficit. Ext: No C/C. 1+ BLE. Skin: Warm and dry without rash. Sign Out <Pedro Nichole MD - Last Filed: 10/13/19 23:10> Sign Out Data: Sign Out Comment: Pending repeat chest x-ray, EKG and troponin. If remains negative and patient doing better can potentially discharge on steroids. Last updated by Pedro Nichole MD at 10/09/19 09:15
[2019-10-09] MEDS: Albuterol/Ipratropium 3 ML UPD VIAL UPD (06:41)
[2019-10-09] MEDS: Albuterol 2.5 MG/3 ML INH SOLN VIAL UPD (07:00)
[2019-10-09 07:03] LABS: Abs Immature Grans 0.02 k/cumm (0.0-0.09); Absolute Basophil Count 0.08 k/cumm (0.0-0.2); Absolute Eosinophil Count 0.33 k/cumm (0.0-0.7); Absolute Lymphocyte Count 1.58 k/cumm (1.2-3.4); Absolute Monocyte Count 0.76 k/cumm (0.11-0.7); Absolute Neutrophil Count 6.12 k/cumm (1.2-6.7); Basophils % 0.9; Eosinophils % 3.7; HCT 31.9 % (36.0-46.0); HGB 9.2 g/dL (12.0-15.5); Immature Grans % 0.2 %; Lymphocytes % 17.8; Mean Corp. HGB Concentration 28.8 g/dL (32.0-36.0); Mean Corpuscular Hemoglobin 24.9 pg (27.0-33.0); Mean Corpuscular Volume 86.2 fL (80-95); Mean Platelet Volume 10.1 fL (8.0-11.0); Monocytes % 8.5; Neutrophils % 68.9; Platelet Count 282 x1000/uL (130-400); RBC Distribution Width 17.2 % (11.7-14.6); White Blood Cell Count 8.89 k/cumm (4.4-10.8)
[2019-10-09 07:15] LABS: ALT 27 U/L (14-59); AST 19 U/L (15-37); Albumin 3.2 g/dL (3.4-5.0); Alkaline Phosphatase 91 U/L (46-116); Anion Gap 8.3 mmol/L (3-11); BUN 59 mg/dL (7-18); Bilirubin, Total 0.2 mg/dL (0.2-1.0); CO2 31.7 mmol/L (21.0-32.0); CREATININE 2.03 mg/dL (0.55-1.02); Calcium 8.5 mg/dL (8.5-10.1); Chloride 105 mmol/L (98-107); Estimated GFR 23.75 (mL/min/1.73m2); Glucose 281 mg/dL (74-106); Potassium 4.1 mmol/L (3.5-5.1); Sodium 145 mmol/L (136-145); Total Protein 7.3 g/dL (6.4-8.2)
--- NOTE | 2019-10-09 07:17 | DI.RAD_ITS ---
EXAM: XR PORTABLE CHEST AP CLINICAL HISTORY: SOB TECHNIQUE: COMPARISON: XR CHEST 2V PA LATERAL from 06/11/2019 XR CHEST 2V PA LATERAL from 08/03/2019 FINDINGS: Single portable view of the chest was obtained. The heart is at the upper limits of normal in size. There appear to be changes of pulmonary scarring. No acute consolidation seen. No gross pleural ef fusion on this frontal film. IMPRESSION: No evidence of acute process.
[2019-10-09 07:27] LABS: NT-proBNP 235 pg/mL (<300)
[2019-10-09 07:28] LABS: Troponin I < 0.05 ng/Ml (<0.06)
[2019-10-09 07:32] LABS: Anisocytosis 1+; Diff Comment RBC Morph Reviewed; Hypochromasia 2+; Microcytosis 2+; Polychromasia Present
[2019-10-09 07:33] LABS: Poikilocytes 1+
[2019-10-09] MEDS: Insulin Aspart 300 UNITS/3 ML PEN 19 UNITS SC (09:21)
[2019-10-09] MEDS: Insulin Glargine 100 UNITS/ML UNIT 70 UNITS SC (09:22)
[2019-10-09] MEDS: methylPREDNISolone SUCC 125 MG VIAL IVP (09:22)
--- NOTE | 2019-10-09 10:01 | DI.RAD_ITS ---
EXAM: XR CHEST 2V PA LATERAL CLINICAL HISTORY: SOB TECHNIQUE: COMPARISON: XR PORTABLE CHEST AP from 07/23/2019 XR CHEST 2V PA LATERAL from 08/03/2019 XR PORTABLE CHEST AP from 10/09/2019 FINDINGS: The heart is at the upper limits of normal in size. There appear to be pulmonary fibrotic changes. No focal consolidation. No pleural effusion. IMPRESSION: No evidence of acute intrapulmonary process.
[2019-10-09 11:20] LABS: Troponin I < 0.05 ng/Ml (<0.06)
== END 2019-10-09 12:04 | disposition home or self-care (01) ==
PROVIDERS: Emergency Medicine; Emergency Provider Student in an Organized Health Care Education/Training Program; PCP Student in an Organized Health Care Education/Training Program
DX: R07.9 Chest pain, unspecified (principal); J44.1 Chronic obstructive pulmonary disease with (acute) exacerbation; R06.02 Shortness of breath; I12.9 Hypertensive chronic kidney disease with stage 1 through stage 4 chronic kidney disease, or unspecified chronic kidney disease; N18.9 Chronic kidney disease, unspecified; I50.32 Chronic diastolic (congestive) heart failure; Z79.01 Long term (current) use of anticoagulants; Z86.711 Personal history of pulmonary embolism; E11.22 Type 2 diabetes mellitus with diabetic chronic kidney disease; Z79.4 Long term (current) use of insulin
CPT/HCPCS: 36415; 36416; 80053; 82962; 93005; 94640; 96372; 96374; 99285; 71045; 71046; 83735; 83880; 84484; 85025; 93010; J1815; J2930; J7613; J7620

== ENCOUNTER 2019-11-10 07:03 | Outpatient (CLI) | payer MEDICARE, MEDICAID, SELFPAY | END 2019-11-10 07:23 | PROVIDERS: PCP Student in an Organized Health Care Education/Training Program; Visit Provider Student in an Organized Health Care Education/Training Program | DX: N39.0 Urinary tract infection, site not specified (principal) | CPT/HCPCS: 36415; 87086 ==

== ENCOUNTER 2019-11-10 10:24 | Inpatient (IN) | payer MEDICARE, MEDICAID, SELFPAY ==
[2019-11-10] VITALS (24 sets, daily range): BP systolic 110–161; BP diastolic 30–82; PULSE 67–102; RESP 2–24; TEMP 36.3–37.1; O2SAT 90–97
--- NOTE | 2019-11-10 11:15 | DI.CT_ITS ---
EXAM: CT ABDOMEN PELVIS WO CLINICAL HISTORY: abd pain, vomiting, constipation. TECHNIQUE: Imaging Protocol: Axial computed tomography images with coronal and sagittal reformatted images were created and reviewed. COMPARISON: CT ABDOMEN PELVIS WO from 09/21/2019 FINDINGS: ABDOMEN: Lung Bases: Small bilateral pleural effusions and subjacent infiltrates. Liver: Normal density. No measurable mass. Gallbladder and biliary tract: No radiodense calculus or dilation. Pancreas: Normal density, no abnormal calcifications or inflammatory process. Spleen: Normal. Kidneys: Normal size, contour and axis. No radiodense stones or obstructive uropathy. Bilateral exoph ytic hypodense lesions most suggestive of cysts. There are a few hyperdense exophytic lesions on the kidneys. These likely reflects complex cysts but are indeterminate on this noncontrast examination. A renal ultrasound may be considered for further evaluation on a nonemergent basis. Adrenal glands: No masses seen. Lymph nodes: Within normal limits. Abdominal Aorta: Abdominal portion non-dilated. Atherosclerosis. PELVIS: Bladder: Symmetric distention, no gross wall thickening. Bowel: Extensive colonic diverticulosis. Mild increased attenuation around a short segment of the di stal sigmoid colon suspicious for acute diverticulitis. Normal appendix. Peritoneal cavity: No ascites, collection or mesenteric inflammatory response. Reproductive organs: Status post hysterectomy. Bones: Degenerative changes. IMPRESSION: 1. Colonic diverticulosis. Mild increased attenuation in the pericolonic fat around a short segment o f the distal sigmoid colon suspicious for acute diverticulitis. Please correlate clinically. 2. Renal lesions. Several have the appearance of simple cysts. There are a few hyperdense exophytic lesions on the kidneys. These may reflect complex cysts. A nonemergent renal ultrasound may be con sidered for further evaluation. 3. Bilateral pleural effusions and basilar infiltrates which may represent atelectasis or pneumonia. 4. Findings were discussed with the emergency department on the date of the examination. DATA REPOSITORY: All CT scans at this facility are submitted to the National Radiology Data Registry (NRDR) Dose Index Registry (DIR) with the [employer] (A[employer]). RADIATION OPTIMIZATION: All CT scans at this facility use at least one of these dose optimization te chniques: automated exposure control; mA and/or kV adjustment per patient size (includes targeted exa ms where dose is matched to clinical indication); or iterative reconstruction.
[2019-11-10 12:19] LABS: Abs Immature Grans 0.17 k/cumm (0.0-0.09); Absolute Basophil Count 0.08 k/cumm (0.0-0.2); Absolute Eosinophil Count 0.15 k/cumm (0.0-0.7); Absolute Lymphocyte Count 1.74 k/cumm (1.2-3.4); Absolute Neutrophil Count 10.93 k/cumm (1.2-6.7); Basophils % 0.6; Eosinophils % 1.1; HCT 24.9 % (36.0-46.0); HGB 7.2 g/dL (12.0-15.5); Immature Grans % 1.2 %; Lymphocytes % 12.5; Mean Corp. HGB Concentration 28.9 g/dL (32.0-36.0); Mean Corpuscular Hemoglobin 25.4 pg (27.0-33.0); Mean Corpuscular Volume 87.7 fL (80-95); Mean Platelet Volume 10.1 fL (8.0-11.0); Monocytes % 6.2; Neutrophils % 78.4; Platelet Count 305 x1000/uL (130-400); RBC 2.84 m/cumm (4.00-5.20); RBC Distribution Width 17.1 % (11.7-14.6); White Blood Cell Count 13.94 k/cumm (4.4-10.8)
[2019-11-10 12:21] LABS: Absolute Monocyte Count 0.86 k/cumm (0.11-0.7)
[2019-11-10 12:31] LABS: ALT 22 U/L (14-59); AST 22 U/L (15-37); Albumin 3.3 g/dL (3.4-5.0); Alkaline Phosphatase 83 U/L (46-116); Anion Gap 4.6 mmol/L (3-11); BUN 67 mg/dL (7-18); Bilirubin, Total 0.2 mg/dL (0.2-1.0); CO2 32.4 mmol/L (21.0-32.0); Calcium 8.4 mg/dL (8.5-10.1); Chloride 101 mmol/L (98-107); Estimated GFR 15.13 (mL/min/1.73m2); Glucose 226 mg/dL (74-106); Lipase 111 U/L (73-393); Potassium 5.3 mmol/L (3.5-5.1); Sodium 138 mmol/L (136-145)
--- NOTE | 2019-11-10 13:08 | ED.GENADUL_ITS ---
Discharge Plan Disposition Condition: Stable Discharge Details Chief Complaint: Abd Prob Admit Date/Time: 11/10/19 14:17 Admit Provider: Antelmo Maki Attending Provider: Antelmo Maki Primary Care Provider: Kristal Quiñonez ED Provider: Lalitha Whitt Discharge Instructions Activity:: Activity as Tolerated Equipment/Supplies:: No Equipment Needed Diet:: Carb Counting Discharge Orders Discharge Orders: Discharge Order (Routine); Ordered 11/15/19 Ordered By: Dominique Choi Discharge Data Discharge Date/Time-TO BE ENTERED AT DEPARTURE: 11/10/19 15:32 Medical Decision Making Karina Bean is a 79-year-old woman with history of multiple medical problems who presented to the emergency department with generalized abdominal pain, vomiting 2 days ago. On exam patient is chronically ill-appearing but acutely nontoxic. Abdomen with generalized tenderness palpation without peritoneal signs. Concern for bowel obstruction, pancreatitis, diverticulitis, possible appendicitis, metabolic/lyte derangement, other. Exam/history is not consistent with pulmonary embolism, acute coronary syndrome, acute emergent aortic process, sepsis. Plan for screening labs, CT abdomen pelvis without contrast, EKG. CT shows diverticulitis. Hemoglobin 7.2. Creatinine 3. Plan for admission, wi ll transfuse 1 unit PRBCs, start antibiotics. Patient medicine Dr. Maki. Dr. Maki performed rectal exam, Hemoccult positive. Clinical impression: Anemia, diverticulitis Disposition: [facility] inpatient Medical Records Medical records reviewed: Yes I reviewed the patient's medical records. Imaging Data Radiologic Study: Attestation: I personally reviewed and interpreted this imaging study as follows: Radiologist's impression: Exam(s) a CT:CT abdomen & pelvis wo EXAM: CT ABDOMEN PELVIS WO CLINICAL HISTORY: abd pain, vomiting, constipation. TECHNIQUE: Imaging Protocol: Axial computed tomography images with coronal and sagittal reformatted images were created and reviewed. COMPARISON: CT ABDOMEN PELVIS WO from 09/21/2019 FINDINGS: ABDOMEN: Lung Bases: Small bilateral pleural effusions and subjacent infiltrates. Liver: Normal density. No measurable mass. Gallbladder and biliary tract: No radiodense calculus or dilation. Pancreas: Normal density, no abnormal calcifications or inflammatory process. Spleen: Normal. Kidneys: Normal size, contour and axis. No radiodense stones or obstructive uropathy. Bilateral exophytic hypodense lesions most suggestive of cysts. There are a few hyperdense exophytic lesions on the kidneys. These likely reflects complex cysts but are indeterminate on this noncontrast examination. A renal ultrasound may be considered for further evaluation on a nonemergent basis. Adrenal glands: No masses seen. Lymph nodes: Within normal limits. Abdominal Aorta: Abdominal portion non-dilated. Atherosclerosis. PELVIS: Bladder: Symmetric distention, no gross wall thickening. Bowel: Extensive colonic diverticulosis. Mild increased attenuation around a short segment of the distal sigmoid colon suspicious for acute diverticulitis. Normal appendix. Peritoneal cavity: No ascites, collection or mesenteric inflammatory response. Reproductive organs: Status post hysterectomy. Bones: Degenerative changes. IMPRESSION: 1. Colonic diverticulosis. Mild increased attenuation in the pericolonic fat around a short segment of the distal sigmoid colon suspicious for acute diverticulitis. Please correlate clinically. 2. Renal lesions. Several have the appearance of simple cysts. There are a few hyperdense exophytic lesions on the kidneys. These may reflect complex cysts. A nonemergent renal ultrasound may be considered for further evaluation. 3. Bilateral pleural effusions and basilar infiltrates which may represent atelectasis or pneumonia. 4. Findings were discussed with the emergency department on the date of the examination. Lab Data Lab results reviewed: Yes I reviewed the patient's lab results. Labs: 11/10/19 13:50 Urine - Reflex from Ua Urine Culture - Pending Laboratory Tests Range/Units 11/10/19 11/10/19 11/10/19 12:00 12:00 12:00 WBC (4.4-10.8) k/cumm 13.94 H RBC (4.00-5.20) m/cumm 2.84 L Hgb (12.0-15.5) g/dL 7.2 L Hct (36.0-46.0) % 24.9 L MCV (80-95) fL 87.7 MCH (27.0-33.0) pg 25.4 L MCHC (32.0-36.0) g/dL 28.9 L RDW (11.7-14.6) % 17.1 H Plt Count (130-400) x1000/uL 305 MPV (8.0-11.0) fL 10.1 Immature Gran % % 1.2 Neutrophils % 78.4 Lymphocytes % 12.5 Monocytes % 6.2 Eosinophils % 1.1 Basophils % 0.6 Absolute Neutrophils (1.2-6.7) k/cumm 10.93 H Absolute Lymphocytes (1.2-3.4) k/cumm 1.74 Absolute Monocytes (0.11-0.7) k/cumm 0.86 H Absolute Eosinophils (0.0-0.7) k/cumm 0.15 Absolute Basophils (0.0-0.2) k/cumm 0.08 Sodium (136-145) mmol/L 138 Potassium (3.5-5.1) mmol/L 5.3 H Chloride (98-107) mmol/L 101 Carbon Dioxide (21.0-32.0) mmol/L 32.4 H Anion Gap (3-11) mmol/L 4.6 BUN (7-18) mg/dL 67 H Creatinine (0.55-1.02) mg/dL 3.00 H Estimated GFR/1.73 m2 (mL/min/1.73m2) 15.13 Glucose (74-106) mg/dL 226 H Calcium (8.5-10.1) mg/dL 8.4 L Iron (50-170) ug/dL TIBC (250-450) ug/dL Transferrin % Sat (15-50) % Total Bilirubin (0.2-1.0) mg/dL 0.2 AST (15-37) U/L 22 ALT (14-59) U/L 22 Alkaline Phosphatase (46-116) U/L 83 Total Protein (6.4-8.2) g/dL 7.0 Albumin (3.4-5.0) g/dL 3.3 L Lipase (73-393) U/L 111 TSH (0.36-3.74) uIU/mL 2.14 Urine Color (Yellow) Urine Clarity (Clear) Urine pH (5-8) Ur Specific [place] (1.005-1.025) Urine Protein (Negative) mg/dL Urine Ketones (Negative) mg/dL Urine Blood (Negative) Urine Nitrite (Negative) Urine Bilirubin (Negative) Urine Urobilinogen (Up TO 0.2) EU/dL Ur Leukocyte Esterase (Negative) Urine RBC (0-2) HPF Urine WBC (0-5) HPF Ur Epithelial Cells (Negative) HPF Urine Crystals (Negative) HPF Urine Bacteria (Negative) HPF Urine Casts (Negative) LPF Urine Mucus (Negative) Ur Culture Indicated? Urine Glucose (Negative) mg/dL Range/Units 11/10/19 11/10/19 12:00 13:50 WBC (4.4-10.8) k/cumm RBC (4.00-5.20) m/cumm Hgb (12.0-15.5) g/dL Hct (36.0-46.0) % MCV (80-95) fL MCH (27.0-33.0) pg MCHC (32.0-36.0) g/dL RDW (11.7-14.6) % Plt Count (130-400) x1000/uL MPV (8.0-11.0) fL Immature Gran % % Neutrophils % Lymphocytes % Monocytes % Eosinophils % Basophils % Absolute Neutrophils (1.2-6.7) k/cumm Absolute Lymphocytes (1.2-3.4) k/cumm Absolute Monocytes (0.11-0.7) k/cumm Absolute Eosinophils (0.0-0.7) k/cumm Absolute Basophils (0.0-0.2) k/cumm Sodium (136-145) mmol/L Potassium (3.5-5.1) mmol/L Chloride (98-107) mmol/L Carbon Dioxide (21.0-32.0) mmol/L Anion Gap (3-11) mmol/L BUN (7-18) mg/dL Creatinine (0.55-1.02) mg/dL Estimated GFR/1.73 m2 (mL/min/1.73m2) Glucose (74-106) mg/dL Calcium (8.5-10.1) mg/dL Iron (50-170) ug/dL 28 L TIBC (250-450) ug/dL 316 Transferrin % Sat (15-50) % 9 L Total Bilirubin (0.2-1.0) mg/dL AST (15-37) U/L ALT (14-59) U/L Alkaline Phosphatase (46-116) U/L Total Protein (6.4-8.2) g/dL Albumin (3.4-5.0) g/dL Lipase (73-393) U/L TSH (0.36-3.74) uIU/mL Urine Color (Yellow) Yellow Urine Clarity (Clear) Clear Urine pH (5-8) 5.5 Ur Specific [place] (1.005-1.025) 1.015 Urine Protein (Negative) mg/dL Negative Urine Ketones (Negative) mg/dL Negative Urine Blood (Negative) Negative Urine Nitrite (Negative) Negative Urine Bilirubin (Negative) Negative Urine Urobilinogen (Up TO 0.2) EU/dL 0.2 Ur Leukocyte Esterase (Negative) Moderate H Urine RBC (0-2) HPF 0-2 Urine WBC (0-5) HPF 20-50 H Ur Epithelial Cells (Negative) HPF Moderate Urine Crystals (Negative) HPF Negative Urine Bacteria (Negative) HPF Moderate Urine Casts (Negative) LPF Negative Urine Mucus (Negative) Negative Ur Culture Indicated? Yes Urine Glucose (Negative) mg/dL Negative ECG Data Attestation: I personally reviewed and interpreted this ECG (s) as follows: Interpretation: EKG shows sinus rhythm at 74, incomplete right bundle branch block, left axis, significant artifact, no STEMI, nondiagnostic EKG HPI General Mode of arrival: EMS . Date/Time Provider Initiated Documentation: 11/10/19 11:15 . Limitations to Documentation: no limitations . Information obtained by: patient, RN notes reviewed and old records reviewed . HPI Narrative: Karina Bean is a 79-year-old woman with a history of COPD, hyperlipidemia, hypertension, CHF, CVA, A. fib, diabetes, chronic kidney disease, hypothyroidism presenting to the emergency department with abdominal pain. Patient reports that she has had 1 week of generalized intermittent abdominal pain, no known modifiers. Patient reports that 2 days ago she had an episode of vomiting which was also accompanied by some soft stool. Patient reports that she has not had a bowel movement in the past 2 days. She reports that she has felt somewhat constipated. Has been eating and drinking, although somewhat less than usual. No dark or bloody stool. She denies any other pain, fever, shortness of breath, numbness, weakness, rash. Related Data Home Medications Medication Instructions Recorded Confirmed amlodipine [Norvasc] 2.5 mg PO DAILY 05/20/19 11/10/19 atorvastatin 40 mg PO HS 05/20/19 11/10/19 cholecalciferol (vitamin D3) 1,000 unit PO DAILY 05/20/19 11/10/19 dicyclomine 20 mg PO DAILY PRN 05/20/19 11/10/19 ferrous sulfate 325 mg PO DAILY 05/20/19 11/10/19 hydralazine 25 mg PO TID 05/20/19 11/10/19 metoprolol succinate 25 mg PO DAILY 05/20/19 11/10/19 nitroglycerin [Nitrostat] 0.4 mg SUBLINGUAL Q5M PRN 05/20/19 11/10/19 Albuterol-Ipatropium 3 ml INHALATION 4-6XD PRN #60 each 05/26/19 11/10/19 furosemide 40 mg PO BID@0830,1600 #10 tab 05/26/19 11/10/19 pantoprazole 40 mg PO BID@0730,1999 #60 tab 07/20/19 11/10/19 acetaminophen [Tylenol] 650 mg PO Q6H #0 tab 07/24/19 11/10/19 fluticasone 250 mcg-salmeterol 50 1 inh IH BID 10/02/19 11/10/19 mcg/dose blistr powdr for inhalation levothyroxine 75 mcg capsule 75 mcg PO DAILY 10/02/19 11/10/19 paroxetine HCl 20 mg tablet 20 mg PO DAILY tab 10/02/19 11/10/19 Oxygen #1 each 10/03/19 10/24/19 albuterol sulfate 90 mcg/actuation 2 puff IH Q6H PRN 10/03/19 11/10/19 aerosol inhaler buspirone 7.5 mg tablet 7.5 mg PO DAILY #90 tab 10/03/19 11/10/19 gabapentin 100 mg capsule 200 mg PO BID cap 10/03/19 11/10/19 melatonin 3 mg tablet 3 mg PO HS PRN 10/03/19 11/10/19 trazodone 50 mg tablet 50 mg PO HS PRN tab 10/03/19 11/10/19 isosorbide dinitrate 30 mg tablet 30 mg PO BID #60 tab 10/10/19 11/10/19 Portable Oxygen System #1 ea 10/24/19 10/24/19 insulin aspart U-100 100 unit/mL See Rx Instructions .ROUTE 10/24/19 11/10/19 subcutaneous solution .COMPLEX PRN #25 syringe pen needle, diabetic 31 gauge x #200 each 10/24/19 10/24/1911/16 pen needle, diabetic 31 gauge x #300 each 10/24/19 10/24/1911/16 amoxicillin-pot clavulanate 1 tab PO BID #20 tab 11/15/19 insulin glargine See Rx Instructions .ROUTE 11/15/19 11/10/19 .COMPLEX #35 syringe MDD 120 units pantoprazole 40 mg PO BID@0730,2000 #60 tab 11/15/19 sucralfate 1 g PO AC & HS #120 tab 11/15/19 Previous Rx's Medication Instructions Recorded Albuterol-Ipatropium 3 ml INHALATION 4-6XD PRN #60 each 05/26/19 furosemide 40 mg PO BID@0830,1600 #10 tab 05/26/19 pantoprazole 40 mg PO BID@0730,2000 #60 tab 07/20/19 acetaminophen [Tylenol] 650 mg PO Q6H #0 tab 07/24/19 buspirone 7.5 mg tablet 7.5 mg PO DAILY #90 tab 10/03/19 isosorbide dinitrate 30 mg tablet 30 mg PO BID #60 tab 10/10/19 Portable Oxygen System #1 ea 10/24/19 insulin aspart U-100 100 unit/mL See Rx Instructions .ROUTE 10/24/19 subcutaneous solution .COMPLEX PRN #25 syringe pen needle, diabetic 31 gauge x #200 each 10/24/1911/16 pen needle, diabetic 31 gauge x #300 each 10/24/1911/16 amoxicillin-pot clavulanate 1 tab PO BID #20 tab 11/15/19 insulin glargine See Rx Instructions .ROUTE 11/15/19 .COMPLEX #35 syringe MDD 120 units pantoprazole 40 mg PO BID@0730,2000 #60 tab 11/15/19 sucralfate 1 g PO AC & HS #120 tab 11/15/19 Allergies Allergy/AdvReac Type Severity Reaction Status Date / Time Morphine AdvReac Severe Agitation Uncoded 11/10/19 10:35 General Stated Complaint: Abd Prob JOSH: 3 Review of Systems Narrative: Constitutional: denies fevers Eyes: denies eye pain ENT: denies ear pain, dental pain, sore throat Cardiovascular: denies chest pain, reports edema at baseline Respiratory: denies SOB, cough GI: denies diarrhea, reports abdominal pain, vomiting : denies flank pain, dysuria MSK: denies back pain, neck pain, arthralgias, myalgias Skin: denies rash Neuro: denies headaches, numbness, weakness [facility] Medical History Anemia (Chronic) CAD (coronary artery disease) (Chronic) Carotid stenosis (Chronic) s/p bilateral CEA Chronic diastolic CHF (congestive heart failure) (Chronic) Chronic iron deficiency anemia (Acute) Chronic low back pain (Chronic) CKD (chronic kidney disease) (Chronic) COPD (chronic obstructive pulmonary disease) (Chronic) Depression with anxiety (Chronic) Diabetes mellitus (Chronic) 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 mellitus (Chronic) Diverticulitis (Acute) Functional tremor (Chronic) GERD (gastroesophageal reflux disease) (Chronic) History of pulmonary embolism (Chronic) Hyperlipidemia (Chronic) Hypertension (Chronic) Hypothyroidism (Chronic) Iron deficiency (Chronic) Obesity (BMI 30.0-34.9) (Chronic) DANYELLE (obstructive sleep apnea) (Chronic) Paroxysmal atrial fibrillation (Chronic) Peripheral vascular disease (Chronic) Renal mass (Acute) Rheumatoid arthritis (Chronic) 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) TIA (transient ischemic attack) (Chronic) Vascular dementia (Acute) Surgical History H/O cardiac catheterization (Chronic) [address] History of left-sided carotid endarterectomy (Chronic) History of right-sided carotid endarterectomy (Chronic) S/P arterial stent (Chronic) leg x2 S/P arteriovenous (AV) fistula creation (Chronic) [facility] in [place] Family History Sister Cancer Diabetes Brother Cancer Diabetes Other Heart disease Social History Smoking/Tobacco Use Status: Former Tobacco Use Alcohol Intake: never Drug use: Never Substance use type: does not use Adopted: No Foster care: No Household members: children Housing: house Number of Children: 3 Do you need help understanding health information?: Always current occupation: Retired; attends [employer] during the day Sexually active: No Do you think of yourself as: straight/heterosexual Current gender identity: female Seatbelt use: always Do you feel safe at home: Yes Do you feel safe in your relationship?: Yes Exam Narrative Exam Narrative: Constitutional: Chronically ill but acutely [id number], pleasant, conversing normally HENT: head atraumatic/normocephalic/normal inspection, mucous membranes moist Eyes: conjunctiva normal, sclera normal, pupils 3mm b/l Neck: no stridor, normal ROM, trachea midline Chest: normal inspection Resp: normal work of breathing, LCTAB Cardio: normal rate, normal rhythm, no murmur appreciated GI: abdomen soft, non-distended, diffusely tender to palpation without guarding or rebound, no focal McBurney's point tenderness to palpation, negative Simeon sign Back: normal inspection, no rash Skin: warm, dry, normal color, no rash Neuro: alert, not altered, grossly non-focal, normal tone Ext: No posterior calf tenderness to palpation Psych: normal mood, normal affect, normal behavior Course Vital Signs Vital signs: Vital Signs Temperature 36.5 C 11/10/19 10:24 Pulse 81 11/10/19 10:24 Respiratory Rate 22 11/10/19 10:24 Blood Pressure 125/36 L 11/10/19 10:24 Pulse Oximetry 97 11/10/19 10:24 Temperature 36.5 C 11/10/19 10:24 Temperature Source Skin 11/10/19 10:24 Pulse 81 11/10/19 10:24 Respiratory Rate 22 11/10/19 10:24 Respiratory Effort Non-Labored 11/10/19 12:19 Blood Pressure 125/36 L 11/10/19 10:24 Blood Pressure Position Supine 11/10/19 10:24 Pulse Oximetry 97 11/10/19 10:24 Oxygen Delivery Method Nasal Cannula 11/10/19 10:24 Oxygen Flow Rate 0 11/10/19 10:24 Comment 11/10/19 10:24 Lab/Test Results Lab/Test Results: Laboratory Tests Range/Units 11/10/19 11/10/19 12:00 12:00 WBC (4.4-10.8) k/cumm 13.94 H RBC (4.00-5.20) m/cumm 2.84 L Hgb (12.0-15.5) g/dL 7.2 L Hct (36.0-46.0) % 24.9 L MCV (80-95) fL 87.7 MCH (27.0-33.0) pg 25.4 L MCHC (32.0-36.0) g/dL 28.9 L RDW (11.7-14.6) % 17.1 H Plt Count (130-400) x1000/uL 305 MPV (8.0-11.0) fL 10.1 Immature Gran % % 1.2 Neutrophils % 78.4 Lymphocytes % 12.5 Monocytes % 6.2 Eosinophils % 1.1 Basophils % 0.6 Absolute Neutrophils (1.2-6.7) k/cumm 10.93 H Absolute Lymphocytes (1.2-3.4) k/cumm 1.74 Absolute Monocytes (0.11-0.7) k/cumm 0.86 H Absolute Eosinophils (0.0-0.7) k/cumm 0.15 Absolute Basophils (0.0-0.2) k/cumm 0.08 Sodium (136-145) mmol/L 138 Potassium (3.5-5.1) mmol/L 5.3 H Chloride (98-107) mmol/L 101 Carbon Dioxide (21.0-32.0) mmol/L 32.4 H Anion Gap (3-11) mmol/L 4.6 BUN (7-18) mg/dL 67 H Creatinine (0.55-1.02) mg/dL 3.00 H Estimated GFR/1.73 m2 (mL/min/1.73m2) 15.13 Glucose (74-106) mg/dL 226 H Calcium (8.5-10.1) mg/dL 8.4 L Total Bilirubin (0.2-1.0) mg/dL 0.2 AST (15-37) U/L 22 ALT (14-59) U/L 22 Alkaline Phosphatase (46-116) U/L 83 Total Protein (6.4-8.2) g/dL 7.0 Albumin (3.4-5.0) g/dL 3.3 L Lipase (73-393) U/L 111
[2019-11-10 13:45] LABS: TSH (W/Ref FT4) 2.14 uIU/mL (0.36-3.74)
[2019-11-10] MEDS: Normal Saline 250 ML IV (13:53)
[2019-11-10] MEDS: metroNIDAZOLE 500 MG/100 ML BAG 100 MG IVPB ×2 (13:53→20:14)
[2019-11-10] MEDS: Normal Saline Flush 10 ML SYR IVP (13:54)
[2019-11-10 13:58] LABS: Bilirubin Negative (Negative); Blood Negative (Negative); Clarity Clear (Clear); Glucose Negative (Negative); Ketones Negative (Negative); Leukocyte Esterase Moderate (Negative); Nitrite Negative (Negative); Specific Gravity 1.015 (1.005-1.025); Urobilinogen 0.2 EU/dL (Up TO 0.2); pH 5.5 (5-8)
[2019-11-10 14:29] LABS: Epithelial Cells Moderate HPF (Negative); RBC 0-2 HPF (0-2); WBC 20-50 HPF (0-5)
[2019-11-10 14:30] LABS: Bacteria Moderate HPF (Negative); C & S Indicated? Yes; Casts Negative LPF (Negative); Crystals Negative HPF (Negative); Mucus Negative (Negative)
--- NOTE | 2019-11-10 14:46 | W.PM.HP.N ---
Date of service: 11/10/19 Time of Service: 14:46 Assessment and Plan Assessment and plan (1) Diverticulitis: Status: Chronic Assessment and plan: Symptoms compatible with diverticulitis although equally compatible with peptic ulcer disease. Relatively benign abdominal exam. CT scan most supportive of the diagnosis. Although this is potentially treatable with oral antibiotics on an outpatient basis, her comorbidities indicate a need for inpatient treatment. I am going to allow oral intake with liquids. Does not seem to need analgesia at this point. Empiric treatment with metronidazole and levofloxacin initiated in the ER and I will continue it. Follow clinically. (2) Anemia due to GI blood loss: Status: Acute Assessment and plan: Heme positive stool with symptoms compatible with chronic dyspepsia and perhaps esophageal dysphasia. Dementia makes history difficult to interpret. Surgical consultation for discussion on possible EGD and colonoscopy. If she remains hemodynamically stable, this can be done as an outpatient. Apixaban and clopidogrel on hold until it is clear that bleeding has stopped or stabilized. Switch oral PPI to IV for at least the next 24 hours. (3) Hypertension: Status: Chronic Assessment and plan: Blood pressure acceptable on presentation. I am holding hydralazine and amlodipine, continue beta-marylou and diuretic and monitor blood pressure. (4) Paroxysmal atrial fibrillation: Status: Chronic Assessment and plan: Sinus rhythm on exam. I think we can follow this through vital signs. If she goes into A. fib with rapid rate will place on telemetry. Anticoagulation is on hold because of GI bleeding. (5) Chronic diastolic CHF (congestive heart failure): Status: Chronic Assessment and plan: History does not suggest any recent exacerbation. Continue beta-marylou and diuretic. Monitor for exacerbation during IV hydration and blood transfusion. May require additional diuretic. (6) COPD (chronic obstructive pulmonary disease): Status: Chronic Assessment and plan: History does not suggest any recent exacerbation. Continue oxygen at home flow rate of 3 L/min and current inhalers. Scheduled duo nebs. (7) Acute kidney injury superimposed on chronic kidney disease: Status: Inactive Assessment and plan: Cause not clear. She might be a little prerenal. Hydrate and recheck BUN and creatinine. Contaminated urinalysis and I do not think it is interpretable in terms of UTI. (8) Diabetes mellitus: Status: Chronic Assessment and plan: Control uncertain. Check hemoglobin A1c. Reducing her Lantus slightly with dietary change on admission to just liquids. Moderate sensitivity sliding scale insulin. (9) Hypothyroidism: Status: Chronic Assessment and plan: TSH fine on outpatient levothyroxine which we will continue. (10) CAD (coronary artery disease): Status: Chronic Assessment and plan: No symptoms to suggest decompensation. Continues on statin, beta-marylou, oral nitrates; clopidogrel on hold because of GI bleed. (11) Vascular dementia: Status: Acute Assessment and plan: Monitor for agitation or delirium. Clopidogrel on hold because of GI bleed. (12) Depression with anxiety: Status: Chronic Assessment and plan: Continue outpatient dose of Paxil and buspirone (13) Renal mass: Status: Acute Assessment and plan: Incidental findings of indeterminate lesions in both kidneys, possibly complex cysts. Outpatient work-up probably most appropriate but if there are other indications for abdominal ultrasound, can look at these with that imaging modality while here. History of Present Illness History of Present Illness Chief Complaint: Abdominal discomfort Narrative: History obtained from patient who is not a reliable historian, and by phone from her daughter. 79-year-old woman who moved to [place] in April 2019 with her daughter, with a history of coronary artery disease, diabetes, chronic kidney disease, paroxysmal A. fib, COPD and vascular dementia from past strokes presented to the emergency room with complaints of anorexia, episodic vomiting without hematemesis or coffee-ground emesis, possibly some dysphagia and episodic abdominal pain. Symptoms began about a week ago with isolated vomiting without hematemesis or coffee-ground emesis. Her symptoms seem to get better spontaneously and she had several normal days midweek. However towards the end of the week, 3 or 4 days prior to presentation, her daughter noted a drop in appetite, complaining of stomach discomfort not localized to any particular area and a preference for softer foods. Her daughter thought she may have had some mild choking or discomfort with swallowing. No known change in her bowel pattern nor any known blood in stool but her daughter does not check as she is independent with toileting. Her daughter thought she seemed a bit weaker and more short of breath this morning despite use of her usual oxygen at nighttime of 3 L and using nebulizers at home. She is on a chronic PPI but does not have any known history of peptic ulcer disease. She is on chronic clopidogrel and low-dose apixaban with a history of paroxysmal A. fib and past DVT and coronary and cerebrovascular diseases. She was in the emergency room in September complaining of abdominal pain and had CT scan abdomen and pelvis which showed diverticuli but no evidence of diverticulitis. CT scan today shows pericolonic fat attenuation in the sigmoid region suspicious for acute diverticulitis. Incidental findings both on the current CT and on the CT in September of indeterminate bilateral renal lesions. Review of Systems Narrative: Other than her abdominal pain, negative to all other questions with unreliable history because of her dementia. [facility] Medical History CAD (coronary artery disease) (Chronic) Carotid stenosis (Chronic) s/p bilateral CEA Chronic diastolic CHF (congestive heart failure) (Chronic) Chronic low back pain (Chronic) CKD (chronic kidney disease) (Chronic) COPD (chronic obstructive pulmonary disease) (Chronic) Depression with anxiety (Chronic) Diabetes mellitus (Chronic) 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 mellitus (Chronic) Diverticulitis (Chronic) Functional tremor (Chronic) GERD (gastroesophageal reflux disease) (Chronic) History of pulmonary embolism (Chronic) Hyperlipidemia (Chronic) Hypertension (Chronic) Hypothyroidism (Chronic) Iron deficiency (Chronic) Obesity (BMI 30.0-34.9) (Chronic) DANYELLE (obstructive sleep apnea) (Chronic) Paroxysmal atrial fibrillation (Chronic) Peripheral vascular disease (Chronic) Renal mass (Acute) Rheumatoid arthritis (Chronic) 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 in [place] Family History Sister Cancer Diabetes Brother Cancer Diabetes Other Heart disease Social History Smoking/Tobacco Use Status: Former Tobacco Use Alcohol Intake: never Drug use: Never Substance use type: does not use Adopted: No Foster care: No Household members: children Housing: house Number of Children: 3 Do you need help understanding health information?: Always current occupation: Retired; attends [employer] during the day Sexually active: No Do you think of yourself as: straight/heterosexual Current gender identity: female Seatbelt use: always Do you feel safe at home: Yes Do you feel safe in your relationship?: Yes Meds Home Medications and Allergies Home Medications Medication Instructions Recorded Confirmed Type amlodipine [Norvasc] 2.5 mg PO DAILY 05/20/19 11/10/19 History atorvastatin 40 mg PO HS 05/20/19 11/10/19 History cholecalciferol (vitamin D3) 1,000 unit PO DAILY 05/20/19 11/10/19 History clopidogrel 75 mg PO DAILY 05/20/19 11/10/19 History dicyclomine 20 mg PO DAILY PRN 05/20/19 11/10/19 History ferrous sulfate 325 mg PO DAILY 05/20/19 11/10/19 History hydralazine 25 mg PO TID 05/20/19 11/10/19 History metoprolol succinate 25 mg PO DAILY 05/20/19 11/10/19 History nitroglycerin [Nitrostat] 0.4 mg SUBLINGUAL Q5M PRN 05/20/19 11/10/19 History Albuterol-Ipatropium 3 ml INHALATION 4-6XD PRN #60 each 05/26/19 11/10/19 Rx furosemide 40 mg PO BID@0830,1600 #10 tab 05/26/19 11/10/19 Rx pantoprazole 40 mg PO BID@0730,2000 #60 tab 07/20/19 11/10/19 Rx acetaminophen [Tylenol] 650 mg PO Q6H #0 tab 07/24/19 11/10/19 Rx apixaban 2.5 mg tablet 2.5 mg PO DAILY tab 10/02/19 11/10/19 History fluticasone 250 mcg-salmeterol 50 1 inh IH BID 10/02/19 11/10/19 History mcg/dose blistr powdr for inhalation levothyroxine 75 mcg capsule 75 mcg PO DAILY 10/02/19 11/10/19 History paroxetine HCl 20 mg tablet 20 mg PO DAILY tab 10/02/19 11/10/19 History Oxygen #1 each 10/03/19 10/24/19 History albuterol sulfate 90 mcg/actuation 2 puff IH Q6H PRN 10/03/19 11/10/19 History aerosol inhaler buspirone 7.5 mg tablet 7.5 mg PO DAILY #90 tab 10/03/19 11/10/19 Rx gabapentin 100 mg capsule 200 mg PO BID cap 10/03/19 11/10/19 History melatonin 3 mg tablet 3 mg PO HS PRN 10/03/19 11/10/19 History trazodone 50 mg tablet 50 mg PO HS PRN tab 10/03/19 11/10/19 History isosorbide dinitrate 30 mg tablet 30 mg PO BID #60 tab 10/10/19 11/10/19 Rx Portable Oxygen System #1 ea 10/24/19 10/24/19 Rx insulin aspart U-100 100 unit/mL See Rx Instructions .ROUTE 10/24/19 11/10/19 Rx subcutaneous solution .COMPLEX PRN #25 syringe insulin glargine 100 unit/mL (3 See Rx Instructions SC .COMPLEX 10/24/19 11/10/19 Rx mL) subcutaneous pen #35 syringe MDD 120 units pen needle, diabetic 31 gauge x #200 each 10/24/19 10/24/19 Rx 11/16 pen needle, diabetic 31 gauge x #300 each 10/24/19 10/24/19 Rx / sulfamethoxazole 800 1 tab PO BID #10 tab 11/05/19 11/10/19 Rx mg-trimethoprim 160 mg tablet Allergies Allergy/AdvReac Type Severity Reaction Status Date / Time Morphine AdvReac Severe Agitation Uncoded 11/10/19 10:35 Exam Narrative Exam Narrative: Elderly woman lying on a stretcher in no acute distress. Temperature 36.5 blood pressure 125/36 pulse 81 and regular SaO2 on 3 L nasal cannula 97%. Sclera a little pale. Edentulous with no oral lesions. Neck very large, cannot see neck veins, no cervical adenopathy. Lungs with diffuse slightly coarse crackles in all lung whitaker, a little bit diminished at the bases, no wheezing. Heart rhythm is regular, no S3 or S4, I do not hear any murmur although heart tones are soft. Abdomen obese active bowel sounds with some mild tenderness to palpation in the mid abdomen to the left as well as left lower quadrant. No guarding or rebound. Unable to appreciate any masses due to obesity. Rectal exam with slightly diminished sphincter tone. A small amount of heme positive brown stool in the rectal vault. Extremities are warm. Normal pulses at the wrist difficult to feel in the feet. She has spontaneous, symmetric movement of all extremities and light touch sensation intact throughout. Sits up with minimal assistance. She knows she is in the hospital. She knows she is here because of her abdominal pain. Results CT findings as per HPI. Labs Result diagrams: 11/10/19 12:00 11/10/19 12:00 Labs: Laboratory Results - last 24 hr 11/10/19 11/10/19 11/10/19 12:00 12:00 12:00 WBC 13.94 H RBC 2.84 L Hgb 7.2 L Hct 24.9 L MCV 87.7 MCH 25.4 L MCHC 28.9 L RDW 17.1 H Plt Count 305 MPV 10.1 Immature Gran % 1.2 Neutrophils % 78.4 Lymphocytes % 12.5 Monocytes % 6.2 Eosinophils % 1.1 Basophils % 0.6 Absolute Neutrophils 10.93 H Absolute Lymphocytes 1.74 Absolute Monocytes 0.86 H Absolute Eosinophils 0.15 Absolute Basophils 0.08 Sodium 138 Potassium 5.3 H Chloride 101 Carbon Dioxide 32.4 H Anion Gap 4.6 BUN 67 H Creatinine 3.00 H Estimated GFR/1.73 m2 15.13 Glucose 226 H Calcium 8.4 L Total Bilirubin 0.2 AST 22 ALT 22 Alkaline Phosphatase 83 Total Protein 7.0 Albumin 3.3 L Lipase 111 TSH 2.14 Urine Color Urine Clarity Urine pH Ur Specific [place] Urine Protein Urine Ketones Urine Blood Urine Nitrite Urine Bilirubin Urine Urobilinogen Ur Leukocyte Esterase Urine RBC Urine WBC Ur Epithelial Cells Urine Crystals Urine Bacteria Urine Casts Urine Mucus Ur Culture Indicated? Urine Glucose Crossmatch 11/10/19 11/10/19 13:50 14:22 WBC RBC Hgb Hct MCV MCH MCHC RDW Plt Count MPV Immature Gran % Neutrophils % Lymphocytes % Monocytes % Eosinophils % Basophils % Absolute Neutrophils Absolute Lymphocytes Absolute Monocytes Absolute Eosinophils Absolute Basophils Sodium Potassium Chloride Carbon Dioxide Anion Gap BUN Creatinine Estimated GFR/1.73 m2 Glucose Calcium Total Bilirubin AST ALT Alkaline Phosphatase Total Protein Albumin Lipase TSH Urine Color Yellow Urine Clarity Clear Urine pH 5.5 Ur Specific [place] 1.015 Urine Protein Negative Urine Ketones Negative Urine Blood Negative Urine Nitrite Negative Urine Bilirubin Negative Urine Urobilinogen 0.2 Ur Leukocyte Esterase Moderate H Urine RBC 0-2 Urine WBC 20-50 H Ur Epithelial Cells Moderate Urine Crystals Negative Urine Bacteria Moderate Urine Casts Negative Urine Mucus Negative Ur Culture Indicated? Yes Urine Glucose Negative Crossmatch See Detail Last Vital Signs Temp 36.5 C 11/10/19 10:24 Pulse 81 11/10/19 10:24 Resp 22 11/10/19 10:24 BP 125/36 L 11/10/19 10:24 Pulse Ox 97 11/10/19 10:24
[2019-11-10] MEDS: levoFLOXacin 750 MG/150 ML BAG 100 MG IVPB (14:53)
[2019-11-10 15:48] LABS: Iron 28 ug/dL (50-170); Total Iron Binding Capacity 316 ug/dL (250-450); Transferrin Sat 9 % (15-50)
--- NOTE | 2019-11-10 16:35 | W.PM.OP ---
Date of service: 11/10/19 Time of Service: 16:35 Operative Note Operative Note SURGEON: Lucy Gomes
[2019-11-10] MEDS: Furosemide 40 MG TAB PO (16:37)
[2019-11-10] MEDS: Insulin Aspart 300 UNITS/3 ML PEN SC (17:29)
--- NOTE | 2019-11-10 17:56 | SCONE_ITS ---
Date of service: 11/10/19 Time of Service: 17:56 Assessment and Plan Assessment and plan (1) Renal mass: Status: Acute Assessment and plan: US in am check retic count consider EPO (2) Vascular dementia: Status: Acute (3) Diverticulitis: Status: Chronic Assessment and plan: mild infection tx abx. rocephin/flagyl cl liquids pt is extremely poor surgical candidate. only consider scoping if does not improve w/ conservative medical management. (4) Acute exacerbation of chronic obstructive pulmonary disease: Status: Acute (5) H/O cardiac catheterization: Status: Chronic Assessment and plan: Patient Name: Juarez BEAN #: [id number]: ICU Ordering Provider: Betito Lopez M.D. : ADM STIVEN Primary Care Provider: Romy Mcdonald of Exam: 05/22/19Sex: F : 2Age: 79 Exam(s) a US:US echocardiogram *[facility]* *[facility]* [address] [place] [address] Date of study: 05/22/2019 Transthoracic Echocardiography M-mode, complete 2D, complete spectral Doppler, and color Doppler *STUDY CONCLUSIONS* Summary: 1. Left ventricle: The cavity size was normal. Wall thickness was increased in a pattern of mild LVH. Systolic function was normal. The estimated ejection fraction was 60-65%. Wall motion was normal; there were no regional wall motion abnormalities. Doppler parameters are consistent with high ventricular filling pressure. 2. Right ventricle: The cavity size was normal. Systolic function was normal. 3. Left atrium: The atrium was mildly dilated. 4. Inferior vena cava: The vessel was patent and mildly dilated. The respirophasic diameter changes were in the normal range (greater than or equal to 50%), consistent with normal central venous pressure. (6) History of left-sided carotid endarterectomy: Status: Chronic (7) Stroke due to embolism: Status: Chronic (8) Iron deficiency: Status: Chronic Assessment and plan: etiology unclear hx of anemia hx of severe CKD check iron PPI and carafate (9) 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 mellitus: Status: Chronic (10) Paroxysmal atrial fibrillation: Status: Chronic (11) Anemia: Status: Chronic Assessment and plan: Uncertain if this is from chronic kidney disease or from GI loss. Patient is extremely poor surgical candidate given her multiple comorbidities. Currently she is hemodynamically stable. Currently no signs of GI bleeding. We will treat with PPI and Carafate. Continue conservative medical management. Patient is actively being transfused. Will check iron studies. Check retic # Consider Epogen or other hematopoietic agents Patient is a high risk patient be anticoagulated. However patient is a high risk for clots. She has atrial fib, she has a history of DVT, she has a known history of TIA, she has a history of carotid stenosis. She has extensive history of coronary artery disease. Patient is a home O2?3 L at baseline. She is not steroid-dependent. History of Present Illness Narrative: pt has a 10 days have of mild N/v. than today she started having LLQ pain. She has a hx of diverticulitis. denies rectal bleeding. She recently moved to the area from [place]. All med records are in [place]. She has dementia and can't really give any hx. Most is taken from daughter. cureently no fever/chills. hemodynacmically stable. She is being transfused. She has never had a CE before. She denies a hx of ulcer dx/stomach problems. She is on anti-plt and blood thinners for a fib, DVT, carotoid stenosis, tIA. She denies any rectal bleeding- but this is per pt hx. daughter says she has been anemic in the past and had to receive blood. Daughter says she was also thinks she has been having diarrhea. This past weekend she was incont of stool that was liquid. no blood. She denies a hx of chronic constipation /strianing to pet caretaker her bowels. pt has a [place] fistula in the left forearm. It has never been used. She is still making urine. from ED: Information obtained by: patient, RN notes reviewed and old records reviewed. HPI Narrative: Karina Bean is a 79-year-old woman with a history of COPD, hyperlipidemia, hypertension, CHF, CVA, A. fib, diabetes, chronic kidney disease, hypothyroidism presenting to the emergency department with abdominal pain. Patient reports that she has had 1 week of generalized intermittent abdominal pain. Patient reports that 2 days ago she had an episode of vomiting which was also accompanied by some soft stool. Patient reports that she has not had a bowel movement in the past 2 days. She reports that she has felt somewhat constipated. Has been eating and drinking, although somewhat less than usual. No dark or bloody stool. She denies any other pain, fever, shortness of breath, numbness, weakness, rash. Consults Consult date: 11/10/19 Requesting physician: Antelmo Maki Review of Systems Unobtainable due to mental status [facility] Medical History (Updated 11/10/19 @ 18:31 by Lucy Gomes DO) Anemia (Chronic) CAD (coronary artery disease) (Chronic) Carotid stenosis (Chronic) s/p bilateral CEA Chronic diastolic CHF (congestive heart failure) (Chronic) Chronic low back pain (Chronic) CKD (chronic kidney disease) (Chronic) COPD (chronic obstructive pulmonary disease) (Chronic) Depression with anxiety (Chronic) Diabetes mellitus (Chronic) 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 mellitus (Chroni c) Diverticulitis (Chronic) Functional tremor (Chronic) GERD (gastroesophageal reflux disease) (Chronic) History of pulmonary embolism (Chronic) Hyperlipidemia (Chronic) Hypertension (Chronic) Hypothyroidism (Chronic) Iron deficiency (Chronic) Obesity (BMI 30.0-34.9) (Chronic) DANYELLE (obstructive sleep apnea) (Chronic) Paroxysmal atrial fibrillation (Chronic) Peripheral vascular disease (Chronic) Renal mass (Acute) Rheumatoid arthritis (Chronic) 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) TIA (transient ischemic attack) (Chronic) Vascular dementia (Acute) Surgical History H/O cardiac catheterization (Chronic) [address] History of left-sided carotid endarterectomy (Chronic) History of right-sided carotid endarterectomy (Chronic) S/P arterial stent (Chronic) leg x2 S/P arteriovenous (AV) fistula creation (Chronic) [facility] in [place] Family History Sister Cancer Diabetes Brother Cancer Diabetes Other Heart disease Social History Smoking/Tobacco Use Status: Former Tobacco Use Alcohol Intake: never Drug use: Never Substance use type: does not use Adopted: No Foster care: No Household members: children Housing: house Number of Children: 3 Do you need help understanding health information?: Always current occupation: Retired; attends [employer] during the day Sexually active: No Do you think of yourself as: straight/heterosexual Current gender identity: female Seatbelt use: always Do you feel safe at home: Yes Do you feel safe in your relationship?: Yes Exam GI Inspection: distended and obesity Palpation: tender (no radiation. no peritonitis) in the LLQ Auscultation: normal bowel sounds Other: her only abdominal sx was a partial hysterectomy. Results Last Vital Signs Temp 36.4 C L 11/10/19 17:21 Pulse 74 11/10/19 17:21 Resp 18 11/10/19 17:21 BP 126/62 11/10/19 17:21 Pulse Ox 96 11/10/19 17:21 Labs Result diagrams: 11/10/19 12:00 11/10/19 12:00 Labs: Laboratory Results - last 24 hr 11/10/19 11/10/19 11/10/19 12:00 12:00 12:00 WBC 13.94 H RBC 2.84 L Hgb 7.2 L Hct 24.9 L MCV 87.7 MCH 25.4 L MCHC 28.9 L RDW 17.1 H Plt Count 305 MPV 10.1 Immature Gran % 1.2 Neutrophils % 78.4 Lymphocytes % 12.5 Monocytes % 6.2 Eosinophils % 1.1 Basophils % 0.6 Absolute Neutrophils 10.93 H Absolute Lymphocytes 1.74 Absolute Monocytes 0.86 H Absolute Eosinophils 0.15 Absolute Basophils 0.08 Sodium 138 Potassium 5.3 H Chloride 101 Carbon Dioxide 32.4 H Anion Gap 4.6 BUN 67 H Creatinine 3.00 H Estimated GFR/1.73 m2 15.13 Glucose 226 H Calcium 8.4 L Iron TIBC Transferrin % Sat Total Bilirubin 0.2 AST 22 ALT 22 Alkaline Phosphatase 83 Total Protein 7.0 Albumin 3.3 L Lipase 111 TSH 2.14 Urine Color Urine Clarity Urine pH Ur Specific [place] Urine Protein Urine Ketones Urine Blood Urine Nitrite Urine Bilirubin Urine Urobilinogen Ur Leukocyte Esterase Urine RBC Urine WBC Ur Epithelial Cells Urine Crystals Urine Bacteria Urine Casts Urine Mucus Ur Culture Indicated? Urine Glucose Patient ABO/Rh Antibody Screen Crossmatch 11/10/19 11/10/19 11/10/19 12:00 13:50 14:22 WBC RBC Hgb Hct MCV MCH MCHC RDW Plt Count MPV Immature Gran % Neutrophils % Lymphocytes % Monocytes % Eosinophils % Basophils % Absolute Neutrophils Absolute Lymphocytes Absolute Monocytes Absolute Eosinophils Absolute Basophils Sodium Potassium Chloride Carbon Dioxide Anion Gap BUN Creatinine Estimated GFR/1.73 m2 Glucose Calcium Iron 28 L TIBC 316 Transferrin % Sat 9 L Total Bilirubin AST ALT Alkaline Phosphatase Total Protein Albumin Lipase TSH Urine Color Yellow Urine Clarity Clear Urine pH 5.5 Ur Specific [place] 1.015 Urine Protein Negative Urine Ketones Negative Urine Blood Negative Urine Nitrite Negative Urine Bilirubin Negative Urine Urobilinogen 0.2 Ur Leukocyte Esterase Moderate H Urine RBC 0-2 Urine WBC 20-50 H Ur Epithelial Cells Moderate Urine Crystals Negative Urine Bacteria Moderate Urine Casts Negative Urine Mucus Negative Ur Culture Indicated? Yes Urine Glucose Negative Patient ABO/Rh A Positive Antibody Screen Negative Crossmatch See Detail
[2019-11-10] MEDS: Albuterol/Ipratropium 3 ML UPD VIAL UPD ×2 (18:35→23:37)
[2019-11-10] MEDS: cefTRIAXone 1 GM/50 ML BAG IVPB (18:42)
[2019-11-10] MEDS: Isosorbide Dinitrate 10 MG TAB 30 MG PO (20:13)
[2019-11-10] MEDS: Gabapentin 100 MG CAP 200 MG PO (20:13)
[2019-11-10] MEDS: Atorvastatin 40 MG TAB PO (20:13)
[2019-11-10] MEDS: Budesonide/Formoterol 160/4.5 6 GM 60 PUFF INH IH (20:30)
[2019-11-10 21:45] LABS: HCT 29.2 % (36.0-46.0); HGB 8.7 g/dL (12.0-15.5)
[2019-11-11] VITALS (18 sets, daily range): BP systolic 111–195; BP diastolic 55–77; PULSE 81–102; RESP 2–24; TEMP 27.9–37.9; O2SAT 90–96
--- NOTE | 2019-11-11 | DI.US_ITS ---
EXAM: US RENAL CLINICAL HISTORY: kidney mass. TECHNIQUE: Cantu scale, color and spectral Doppler were used. COMPARISON: No exams were available for comparison FINDINGS: Renal size in cm: Right: 11.0 left: 10 Echogenicity: Normal. Hydronephrosis: No. Cyst or mass: On the right, there are 2 simple cysts present. The smaller measures 1.8 cm. The larg er measures 1.9 cm. There is a 2.3 x 1.3 x 1.9 cm., hypoechoic, avascular exophytic lesion on the ri ght kidney. It does not meet the sonographic criteria for a simple cyst. On the left, 2 cysts are s een. The larger measures 1.1 cm. The smaller measures 0.6 cm. Nephrolithiasis: No. Other findings: None. Bladder:Normal. Ureteral jets: Right: Not visualized. Left: Not visualized. Prevoid vol:270 cc Postvoid vol:270 cc. The patient was unable to void. DOPPLER FINDINGS: Symmetric blood flow to the kidneys. IMPRESSION: 1. Bilateral renal cysts. 2. 2.3 cm., hypoechoic, avascular exophytic lesion on the right kidney. This may represent a complex cyst. Solid mass cannot be excluded. Follow-up is recommended. This may represent a CT scan or ul trasound in 6 months or an MRI examination of the kidneys. DATA REPOSITORY:
[2019-11-11] MEDS: Acetaminophen 325 MG TAB 650 MG PO ×2 (01:31→10:44)
--- NOTE | 2019-11-11 01:56 | NUR.NOTE ---
Nursing Note: At 2049 hrs., Pt complained of rt. sharp chest pain, NGT SL given , Vital signs taken B/P was 110/60 manually; Temp 37.1; [place] 67 and continue on oxygen at 4L/NC w/ O2 Sat of 94%.Pt rechecked after 5 mins, pt was asleep. Received 1 unit of RPBC with no reactions noted. Pt been up and about to bedside commode and voiding well. Pt able to utilized call lights for needs. Latest temp 37.9, Tylenol PRN given.
[2019-11-11] MEDS: metroNIDAZOLE 500 MG/100 ML BAG 100 MG IVPB (03:42)
[2019-11-11] MEDS: Albuterol/Ipratropium 3 ML UPD VIAL UPD ×3 (05:57→19:55)
[2019-11-11] MEDS: Levothyroxine 75 MCG TAB PO (05:57)
[2019-11-11 06:51] LABS: Abs Immature Grans 0.21 k/cumm (0.0-0.09); Absolute Eosinophil Count 0.12 k/cumm (0.0-0.7); Absolute Monocyte Count 0.92 k/cumm (0.11-0.7); Basophils % 0.3; Eosinophils % 0.8; HCT 27.1 % (36.0-46.0); Immature Grans % 1.4 %; Lymphocytes % 11.7; Mean Corp. HGB Concentration 29.5 g/dL (32.0-36.0); Mean Corpuscular Hemoglobin 25.9 pg (27.0-33.0); Mean Corpuscular Volume 87.7 fL (80-95); Mean Platelet Volume 10.2 fL (8.0-11.0); Monocytes % 6.3; Neutrophils % 79.5; Platelet Count 312 x1000/uL (130-400); RBC 3.09 m/cumm (4.00-5.20); RBC Distribution Width 16.8 % (11.7-14.6); Reticulocyte 3.5 % (0.5-2.4); White Blood Cell Count 14.57 k/cumm (4.4-10.8)
[2019-11-11] MEDS: Lactated Ringers 1,000 ML 80 ML IV (06:52)
[2019-11-11 06:55] LABS: Absolute Basophil Count 0.04 k/cumm (0.0-0.2); Absolute Neutrophil Count 11.58 k/cumm (1.2-6.7)
[2019-11-11 07:08] LABS: Hemoglobin A1C 7.9 % (3.8-5.6)
[2019-11-11 07:16] LABS: ALT 22 U/L (14-59); AST 20 U/L (15-37); Albumin 3.1 g/dL (3.4-5.0); Alkaline Phosphatase 88 U/L (46-116); Anion Gap 4.9 mmol/L (3-11); BUN 63 mg/dL (7-18); Bilirubin, Total 0.3 mg/dL (0.2-1.0); CO2 35.1 mmol/L (21.0-32.0); CREATININE 2.41 mg/dL (0.55-1.02); Calcium 8.4 mg/dL (8.5-10.1); Chloride 98 mmol/L (98-107); Estimated GFR 19.48 (mL/min/1.73m2); Ferritin 60 ng/mL (8-252); Glucose 204 mg/dL (74-106); Potassium 4.5 mmol/L (3.5-5.1); Sodium 138 mmol/L (136-145)
[2019-11-11 07:28] LABS: Vitamin B12 564 pg/mL (193-986)
[2019-11-11 07:30] LABS: C-Reactive Protein 6.96 mg/dL (0.0-0.3)
[2019-11-11] MEDS: Budesonide/Formoterol 160/4.5 6 GM 60 PUFF INH IH ×2 (08:05→19:54)
[2019-11-11] MEDS: Gabapentin 100 MG CAP 200 MG PO ×2 (08:39→19:54)
--- NOTE | 2019-11-11 08:39 | INITIAL_ITS ---
- If Service Date Differs Date of service: 11/11/19 Time of Service: 08:39 Care Management Initial Assess REASON FOR HOSPITALIZATION:: Diverticulitis PAST MEDICAL HISTORY/PAST SURGICAL HISTORY:: Medical History . CAD (coronary artery disease) (Chronic). Carotid stenosis (Chronic). s/p bilateral CEA. Chronic diastolic CHF (congestive heart failure) (Chronic). Chronic low back pain (Chronic). CKD (chronic kidney disease) (Chronic). COPD (chronic obstructive pulmonary disease) (Chronic). Depression with anxiety (Chronic). Diabetes mellitus (Chronic). 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 mellitus (Chronic). Diverticulitis (Chronic). Functional tremor (Chronic). GERD (gastroesophageal reflux disease) (Chronic). History of pulmonary embolism (Chronic). Hyperlipidemia (Chronic). Hypertension (Chronic). Hypothyroidism (Chronic). Iron deficiency (Chronic). Obesity (BMI 30.0-34.9) (Chronic). DANYELLE (obstructive sleep apnea) (Chronic). Paroxysmal atrial fibrillation (Chronic). Peripheral vascular disease (Chronic). Renal mass (Acute). Rheumatoid arthritis (Chronic). 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 TIA (transient ischemic attack) (Chronic). Vascular dementia (Acute). Surgical History . H/O cardiac catheterization (Chronic). [address]. History of left-sided carotid endarterectomy (Chronic). History of right-sided carotid endarterectomy (Chronic). S/P arterial stent (Chronic). leg x2. S/P arteriovenous (AV) fistula creation (Chronic). [facility] in [place] PREVIOUS FUNCTIONAL STATUS/SOCIAL/FAMILY SUPPORTS:: Karina resides with her daughter Fina and son in law in [place], [place]. Her son Rizwan resides in [place]. Karina is mostly independent with personal ADLs and relies on Fina for additional needs in the home setting. Karina attends adult day services 5 days a week and is home with her daughter and son in law on the weekends. CURRENT FUNCTIONAL STATUS:: Karina was lying in bed when CM met with her. She was pleasant and agreeable to conversation. Karina stated that she has been doing well until recently and that she came to the hospital because she was having trouble breathing. She shared that she hopes she will not need to remain here for long. ADVANCE DIRECTIVES:: None on file Has patient been provided with information about the portal?: Yes Did the patient sign up for the portal?: No CODE STATUS:: DNR/DNI INSURANCE COVERAGE / FINANCIAL ISSUES:: Medicare. Medicaid CURRENT HOME/COMMUNITY SERVICES/EQUIPMENT:: Adult day care 5 days/week, walker PRIMARY CARE PHYSICIAN:: Kristal Quiñonez POTENTIAL DISCHARGE NEEDS:: Follow up with PCP and discharge plan of care PATIENT/FAMILY EDUCATION NEEDS:: Discharge plan, limitations, follow up and Ask Me Three. TRANSPORTATION:: via private vehicle with family PLAN:: Karina will likely be discharged home with no new services. She will follow up with her PCP and discharge plan of care. Karina will resume attending adult day care. CM will continue to support Karina, her family and her discharge planning needs.
[2019-11-11] MEDS: PARoxetine 20 MG TAB PO (08:40)
[2019-11-11] MEDS: Metoprolol CR 25 MG TABCR PO (08:40)
[2019-11-11] MEDS: Furosemide 40 MG TAB PO ×2 (08:40→17:28)
[2019-11-11] MEDS: Isosorbide Dinitrate 10 MG TAB 30 MG PO ×2 (08:40→19:54)
[2019-11-11] MEDS: Insulin Glargine 300 UNITS/3 ML PEN 50 UNITS SC (08:41)
[2019-11-11] MEDS: Insulin Aspart 300 UNITS/3 ML PEN SC ×3 (08:42→17:27)
--- NOTE | 2019-11-11 09:29 | W.PM.PROGNOT ---
Date of Service Date of service: 11/11/19 Time of Service: 09:29 Assessment and Plan Assessment and plan (1) Diverticulitis: Status: Chronic Assessment and plan: Tolerating a clear liquid diet. No nausea or vomiting. Abdominal pain improved. No BM yet. Despite parenteral antibiotics with ceftriaxone and Flagyl she continues to have a leukocytosis of 14,000 of 6.9. I discontinued her ceftriaxone and Flagyl as she is not demonstrating an adequate response and put her on Zosyn. (2) Anemia due to GI blood loss: Status: Acute Assessment and plan: Per Dr. Gomes she feels the patient is not a candidate for acute upper or lower endoscopy. We will treat her empirically with PPI and Carafate. Will monitor blood count and treat her anemia with erythropoietin.. (3) Hypertension: Status: Chronic Assessment and plan: Blood pressures remained stable. Continue to hold amlodipine and hydralazine. Continue with beta-blockers. (4) Paroxysmal atrial fibrillation: Status: Chronic Assessment and plan: Continue rate control with beta-blockers. Clinically she seems to be in a regular rhythm. Not currently on telemetry. For now we will withhold monitoring with telemetry unless she goes into a rapid rate. I will resume her apixaban and monitor her blood count. (5) Chronic diastolic CHF (congestive heart failure): Status: Chronic Assessment and plan: Clinically she seems to have some CHF as evidenced by bilateral pleural effusions bibasilar rales. We will give her an additional dose of IV Lasix. (6) COPD (chronic obstructive pulmonary disease): Status: Chronic Assessment and plan: Continue nebulizers and oxygen at her home flow rate of 3 L/min per nasal cannula. She does have some diffuse expiratory wheezes. This may be some volume overload. If this does not respond to IV Lasix then she may need some corticosteroids to treat her COPD. (7) Acute kidney injury superimposed on chronic kidney disease: Status: Inactive Assessment and plan: Creatinine down to 2.4. Admission creatinine was 3.0. Her baseline appears to be around 2.0. (8) Diabetes mellitus: Status: Chronic Assessment and plan: Control uncertain. Check hemoglobin A1c. Reducing her Lantus slightly with dietary change on admission to just liquids. Moderate sensitivity sliding scale insulin. (9) Hypothyroidism: Status: Chronic Assessment and plan: TSH fine on outpatient levothyroxine which we will continue. (10) CAD (coronary artery disease): Status: Chronic Assessment and plan: No symptoms to suggest decompensation. Continues on statin, beta-marylou, oral nitrates; clopidogrel on hold because of GI bleed. (11) Vascular dementia: Status: Acute Assessment and plan: Monitor for agitation or delirium. Clopidogrel on hold because of GI bleed. (12) Depression with anxiety: Status: Chronic Assessment and plan: Continue outpatient dose of Paxil and buspirone (13) Renal mass: Status: Acute Assessment and plan: 2.3 cm., hypoechoic, avascular exophytic lesion on the right kidney. This will need further follow-up with urology. I will consult with Dr. Fraser (14) Pleural effusion: Status: Acute Assessment and plan: By [id number] ultrasound her effusion appears to be a simple effusion. I discontinued IV fluids and have ordered additional dose of IV Lasix. Subjective Subjective Interval history since last seen: Patient denies any nausea or vomiting. She has had no BM today and does not recall a BM yesterday. However she reportedly had heme positive stools on admission. She received a transfusion 1 unit of packed red cells yesterday for her anemia. Her hemoglobin is come up to 8 g from 7.2 on admission. Despite the Rocephin and Flagyl she continues to have a leukocytosis of 14,000 as well as elevated CRP of 6.9. Dr. Gomes's surgical consultation is appreciated. Present time there is no plans to perform either upper or lower endoscopy unless the patient has significant GI bleeding. I am going to try to advance her diet to a full liquid diet today. I am changing her Flagyl and Rocephin to Zosyn. Her CT of her abdomen showed sigmoid diverticulitis and she was also incidentally found to have small bilateral pleural effusions and/or atelectasis versus pneumonia. Clinically she is not acting like pneumonia. She has no cough or sputum production. She remains afebrile. I Katharina change her IV Protonix to oral Protonix and add Carafate for added GI protection. I am then going to restart her apixaban because of her high risk for vascular events given her prior history of carotid stenosis and previous TIA as well as underlying coronary artery disease and prior DVT. We will continue to monitor her blood count daily and monitor her kidney function. I will start her on erythropoietin to treat her anemia of chronic disease. Exam Narrative Exam Narrative: Morbidly obese female lying in bed in no acute distress. Currently pain-free. Lungs reveal scattered expiratory wheezes bilaterally. She has bibasilar rales. Heart is regular with a grade 2-3/6 systolic murmur over the aortic outflow tract. No thrill or heave or gallop. Abdomen is obese soft minimally tender in the right lower quadrant. No guarding or rebound tenderness. Bowel sounds are hypoactive. Objective Objective Clinical Data: Abnormal lab results 11/10/19 11/10/19 11/10/19 Range/Units 12:00 12:00 12:00 WBC 13.94 H (4.4-10.8) k/cumm RBC 2.84 L (4.00-5.20) m/cumm Hgb 7.2 L (12.0-15.5) g/dL Hct 24.9 L (36.0-46.0) % MCH 25.4 L (27.0-33.0) pg MCHC 28.9 L (32.0-36.0) g/dL RDW 17.1 H (11.7-14.6) % Absolute Neutrophils 10.93 H (1.2-6.7) k/cumm Absolute Monocytes 0.86 H (0.11-0.7) k/cumm Retic Count (0.5-2.4) % Potassium 5.3 H (3.5-5.1) mmol/L Carbon Dioxide 32.4 H (21.0-32.0) mmol/L BUN 67 H (7-18) mg/dL Creatinine 3.00 H (0.55-1.02) mg/dL Glucose 226 H (74-106) mg/dL Hemoglobin A1c (3.8-5.6) % Calcium 8.4 L (8.5-10.1) mg/dL Iron 28 L (50-170) ug/dL Transferrin % Sat 9 L (15-50) % C-Reactive Protein (0.0-0.3) mg/dL Albumin 3.3 L (3.4-5.0) g/dL Ur Leukocyte Esterase (Negative) Urine WBC (0-5) HPF Crossmatch 11/10/19 11/10/19 11/10/19 Range/Units 13:50 14:22 20:11 WBC (4.4-10.8) k/cumm RBC (4.00-5.20) m/cumm Hgb 8.7 L (12.0-15.5) g/dL Hct 29.2 L (36.0-46.0) % MCH (27.0-33.0) pg MCHC (32.0-36.0) g/dL RDW (11.7-14.6) % Absolute Neutrophils (1.2-6.7) k/cumm Absolute Monocytes (0.11-0.7) k/cumm Retic Count (0.5-2.4) % Potassium (3.5-5.1) mmol/L Carbon Dioxide (21.0-32.0) mmol/L BUN (7-18) mg/dL Creatinine (0.55-1.02) mg/dL Glucose (74-106) mg/dL Hemoglobin A1c (3.8-5.6) % Calcium (8.5-10.1) mg/dL Iron (50-170) ug/dL Transferrin % Sat (15-50) % C-Reactive Protein (0.0-0.3) mg/dL Albumin (3.4-5.0) g/dL Ur Leukocyte Esterase Moderate H (Negative) Urine WBC 20-50 H (0-5) HPF Crossmatch See Detail 11/11/19 11/11/19 11/11/19 Range/Units 06:18 06:18 06:18 WBC 14.57 H (4.4-10.8) k/cumm RBC 3.09 L (4.00-5.20) m/cumm Hgb 8.0 L (12.0-15.5) g/dL Hct 27.1 L (36.0-46.0) % MCH 25.9 L (27.0-33.0) pg MCHC 29.5 L (32.0-36.0) g/dL RDW 16.8 H (11.7-14.6) % Absolute Neutrophils 11.58 H (1.2-6.7) k/cumm Absolute Monocytes 0.92 H (0.11-0.7) k/cumm Retic Count 3.5 H (0.5-2.4) % Potassium (3.5-5.1) mmol/L Carbon Dioxide 35.1 H (21.0-32.0) mmol/L BUN 63 H (7-18) mg/dL Creatinine 2.41 H (0.55-1.02) mg/dL Glucose 204 H (74-106) mg/dL Hemoglobin A1c 7.9 H (3.8-5.6) % Calcium 8.4 L (8.5-10.1) mg/dL Iron (50-170) ug/dL Transferrin % Sat (15-50) % C-Reactive Protein 6.96 H (0.0-0.3) mg/dL Albumin 3.1 L (3.4-5.0) g/dL Ur Leukocyte Esterase (Negative) Urine WBC (0-5) HPF Crossmatch Vital Signs Temperature 36.6 C 11/11/19 07:21 Temperature Source Tympanic 11/11/19 07:21 Pulse 87 11/11/19 07:21 Pulse Rhythm Regular 11/11/19 07:23 Pulse 73 11/10/19 15:10 Respiratory Rate 19 11/11/19 07:21 Respiratory Effort 11/11/19 07:23 Respiratory Depth Shallow 11/11/19 07:23 Respiratory Pattern Normal 11/11/19 07:23 Blood Pressure 158/72 H 11/11/19 07:21 Blood Pressure Mean 66 11/10/19 15:01 Blood Pressure Position Supine 11/10/19 10:24 Pulse Oximetry 92 L 11/11/19 07:21 Oxygen Delivery Method Nasal Cannula 11/11/19 07:21 Oxygen Flow Rate 4 11/11/19 07:21 Pain Level 0 11/11/19 07:21 Comment 11/10/19 10:24 Intake & Output 11/10/19 11/10/19 11/11/19 11:59 23:59 11:59 Intake Total 445 / 445 600 / 600 Output Total 1899 825 / 825 Balance -1455 / -1455 -225 / -225 Weight 90.3 kg 86.1 kg Intake: IV 110 / 110 100 / 100 Oral 500 / 500 Blood Product 285 / 285 Rbc Leuko Reduced Unit 285 / 285 [id number] Other 50 / 50 Rbc Leuko Reduced Unit 50 / 50 [id number] Output: Urine 1900 / 1900 825 / 825 Other: Urine Color Yellow Pale Yellow Urine Appearance Clear Clear Urine Odor None Voiding Methods Bedside Commode Bedside Commode Laboratory Results WBC 14.57 k/cumm (4.4-10.8) H 11/11/19 06:18 RBC 3.09 m/cumm (4.00-5.20) L 11/11/19 06:18 Hgb 8.0 g/dL (12.0-15.5) L 11/11/19 06:18 Hct 27.1 % (36.0-46.0) L 11/11/19 06:18 MCV 87.7 fL (80-95) 11/11/19 06:18 MCH 25.9 pg (27.0-33.0) L 11/11/19 06:18 MCHC 29.5 g/dL (32.0-36.0) L 11/11/19 06:18 RDW 16.8 % (11.7-14.6) H 11/11/19 06:18 Plt Count 312 x1000/uL (130-400) 11/11/19 06:18 MPV 10.2 fL (8.0-11.0) 11/11/19 06:18 Immature Gran % 1.4 % 11/11/19 06:18 Neutrophils % 79.5 11/11/19 06:18 Lymphocytes % 11.7 11/11/19 06:18 Monocytes % 6.3 11/11/19 06:18 Eosinophils % 0.8 11/11/19 06:18 Basophils % 0.3 11/11/19 06:18 Absolute Neutrophils 11.58 k/cumm (1.2-6.7) H 11/11/19 06:18 Absolute Lymphocytes 1.70 k/cumm (1.2-3.4) 11/11/19 06:18 Absolute Monocytes 0.92 k/cumm (0.11-0.7) H 11/11/19 06:18 Absolute Eosinophils 0.12 k/cumm (0.0-0.7) 11/11/19 06:18 Absolute Basophils 0.04 k/cumm (0.0-0.2) 11/11/19 06:18 Retic Count 3.5 % (0.5-2.4) H 11/11/19 06:18 Sodium 138 mmol/L (136-145) 11/11/19 06:18 Potassium 4.5 mmol/L (3.5-5.1) 11/11/19 06:18 Chloride 98 mmol/L (98-107) 11/11/19 06:18 Carbon Dioxide 35.1 mmol/L (21.0-32.0) H 11/11/19 06:18 Anion Gap 4.9 mmol/L (3-11) 11/11/19 06:18 BUN 63 mg/dL (7-18) H 11/11/19 06:18 Creatinine 2.41 mg/dL (0.55-1.02) H 11/11/19 06:18 Estimated GFR/1.73 m2 19.48 (mL/min/1.73m2) 11/11/19 06:18 Glucose 204 mg/dL (74-106) H 11/11/19 06:18 Hemoglobin A1c 7.9 % (3.8-5.6) H 11/11/19 06:18 Calcium 8.4 mg/dL (8.5-10.1) L 11/11/19 06:18 Iron 28 ug/dL (50-170) L 11/10/19 12:00 TIBC 316 ug/dL (250-450) 11/10/19 12:00 Transferrin % Sat 9 % (15-50) L 11/10/19 12:00 Ferritin 60 ng/mL (8-252) 11/11/19 06:18 Total Bilirubin 0.3 mg/dL (0.2-1.0) 11/11/19 06:18 AST 20 U/L (15-37) 11/11/19 06:18 ALT 22 U/L (14-59) 11/11/19 06:18 Alkaline Phosphatase 88 U/L (46-116) 11/11/19 06:18 C-Reactive Protein 6.96 mg/dL (0.0-0.3) H 11/11/19 06:18 Total Protein 7.0 g/dL (6.4-8.2) 11/11/19 06:18 Albumin 3.1 g/dL (3.4-5.0) L 11/11/19 06:18 Lipase 111 U/L (73-393) 11/10/19 12:00 Vitamin B12 564 pg/mL (193-986) 11/11/19 06:18 TSH 2.14 uIU/mL (0.36-3.74) 11/10/19 12:00 Urine Color Yellow (Yellow) 11/10/19 13:50 Urine Clarity Clear (Clear) 11/10/19 13:50 Urine pH 5.5 (5-8) 11/10/19 13:50 Ur Specific [place] 1.015 (1.005-1.025) 11/10/19 13:50 Urine Protein Negative mg/dL (Negative) 11/10/19 13:50 Urine Ketones Negative mg/dL (Negative) 11/10/19 13:50 Urine Blood Negative (Negative) 11/10/19 13:50 Urine Nitrite Negative (Negative) 11/10/19 13:50 Urine Bilirubin Negative (Negative) 11/10/19 13:50 Urine Urobilinogen 0.2 EU/dL (Up TO 0.2) 11/10/19 13:50 Ur Leukocyte Esterase Moderate (Negative) H 11/10/19 13:50 Urine RBC 0-2 HPF (0-2) 11/10/19 13:50 Urine WBC 20-50 HPF (0-5) H 11/10/19 13:50 Ur Epithelial Cells Moderate HPF (Negative) 11/10/19 13:50 Urine Crystals Negative HPF (Negative) 11/10/19 13:50 Urine Bacteria Moderate HPF (Negative) 11/10/19 13:50 Urine Casts Negative LPF (Negative) 11/10/19 13:50 Urine Mucus Negative (Negative) 11/10/19 13:50 Ur Culture Indicated? Yes 11/10/19 13:50 Urine Glucose Negative mg/dL (Negative) 11/10/19 13:50 Patient ABO/Rh A Positive 11/10/19 14:22 Antibody Screen Negative 11/10/19 14:22 Crossmatch See Detail 11/10/19 14:22
[2019-11-11 11:57] LABS: NT-proBNP 1574 pg/mL (<300)
[2019-11-11] MEDS: Normal Saline 1,000 ML 50 ML IV (12:17)
[2019-11-11] MEDS: Sucralfate 1 GM TAB PO ×3 (12:18→21:44)
[2019-11-11] MEDS: IRON SUCROSE COMPLEX 200 MG in Normal Saline 100 ML 400 MG IVPB (12:19)
[2019-11-11] MEDS: PIPERACILLIN/TAZO 3.375 GM in Normal Saline 50 ML IVPB ×2 (12:19→19:55)
--- NOTE | 2019-11-11 13:08 | PHA.ADMREV ---
<Temitope Webb - Last Filed: 11/11/19 13:08> Pharmacy Clinical Review - Admission Clinical Review (Last Updated 11/10/19 @ 18:31 by Lucy Goems DO) Pleural effusion (Acute) Renal mass (Acute) Vascular dementia (Acute) Anemia due to GI blood loss (Acute) Acute exacerbation of chronic obstructive pulmonary disease (Acute) Morphine Adverse Reaction (Severe, Uncoded 11/10/19 10:35) Agitation Height 5 ft 1.81 in Weight 86.1 kg - Renal Dosing Renal Dosing: BUN 63 mg/dL (7-18) H 11/11/19 06:18 Creatinine 2.41 mg/dL (0.55-1.02) H 11/11/19 06:18 Medications needing adjustments: Reviewed (Crcl ~19.8 mL/min using adjusted body weight. Apixaban was not studied in clinicial trials in pt's with Crcl less than 25 mL/min. zosyn dosing boarderline, consider changing to 3.375 mg Q12H extended infustion if renal function worsens. MD aware) - Anticoagulation Anticoagulation: Hgb 8.0 g/dL (12.0-15.5) L 11/11/19 06:18 Hct 27.1 % (36.0-46.0) L 11/11/19 06:18 Plt Count 312 x1000/uL (130-400) 11/11/19 06:18 Creatinine 2.41 mg/dL (0.55-1.02) H 11/11/19 06:18 DVT Prohphylaxis: N/A Therapeutic Anticoagulation: Reviewed Medications: Apixaban (initially held due to anemia, ordered to restart in the morning.) - Opiate Usage Evaluate Pain Scale/Pains Meds: N/A Scheduled Bowel Reg ordered if on Opiates?: No (PRN meds ordered) - Relevant Labs Sodium 138 mmol/L (136-145) 11/11/19 06:18 Potassium 4.5 mmol/L (3.5-5.1) 11/11/19 06:18 Chloride 98 mmol/L (98-107) 11/11/19 06:18 C-Reactive Protein 6.96 mg/dL (0.0-0.3) H 11/11/19 06:18 Electrolytes, C-Reactive P, ESR: Reviewed - Antimicrobial Stewardship Antibiotic appropriateness: Reviewed (ceftriaxone and metronidazole changed to zosyn today) Surgical Abx d/c within 24 hr: N/A Culture review/Resistance: Reviewed (urine culture- no growth @24 hours) - DM Control DM Control: Glucose 204 mg/dL (74-106) H 11/11/19 06:18 Hemoglobin A1c 7.9 % (3.8-5.6) H 11/11/19 06:18 Finger Stick Blood Glucose 251 Finger Stick Blood Glucose 251 Finger Stick Blood Glucose 203 Finger Stick Blood Glucose 203 Finger Stick Blood Glucose 203 Insulin Dosing: Reviewed (scheduled insulin glargine and sliding scale aspart ordered) - Heart Failure/ME Heart Failure/ME: NT-Pro-B Natriuret Pep 1574 pg/mL (<300) H 11/11/19 06:18 EF%, JENNIFER's, B-Blockers, Diuretics: Reviewed (furosemide, metoprolol,) - BP Control BP Control: Blood Pressure 124/57 Blood Pressure 135/63 Blood Pressure 158/72 Blood Pressure 112/61 Blood Pressure 113/55 Blood Pressure 195/61 If elevated: Reviewed (amlodipine and hydralazine on hold) <Jodee Chong - Last Filed: 11/13/19 12:09> Pharmacy Clinical Review - Admission Clinical Review (Last Updated 11/10/19 @ 18:31 by Lucy Gomes DO) Pleural effusion (Acute) Renal mass (Acute) Vascular dementia (Acute) Anemia due to GI blood loss (Acute) Diverticulitis (Acute) Acute exacerbation of chronic obstructive pulmonary disease (Acute) Morphine Adverse Reaction (Severe, Uncoded 11/10/19 10:35) Agitation Height 5 ft 1.81 in Weight 82.5 kg - Renal Dosing Renal Dosing: BUN 46 mg/dL (7-18) H 11/13/19 06:45 Creatinine 2.03 mg/dL (0.55-1.02) H 11/13/19 06:45 - Anticoagulation Anticoagulation: Hgb 8.1 g/dL (12.0-15.5) L 11/13/19 06:45 Hct 28.4 % (36.0-46.0) L 11/13/19 06:45 Plt Count 302 x1000/uL (130-400) 11/13/19 06:45 Creatinine 2.03 mg/dL (0.55-1.02) H 11/13/19 06:45 - Relevant Labs Sodium 143 mmol/L (136-145) 11/13/19 06:45 Potassium 4.4 mmol/L (3.5-5.1) 11/13/19 06:45 Chloride 101 mmol/L (98-107) 11/13/19 06:45 C-Reactive Protein 15.65 mg/dL (0.0-0.3) H 11/12/19 06:10 - DM Control DM Control: Glucose 225 mg/dL (74-106) H 11/13/19 06:45 Hemoglobin A1c 7.9 % (3.8-5.6) H 11/11/19 06:18 Finger Stick Blood Glucose 202 Finger Stick Blood Glucose 236 Finger Stick Blood Glucose 236 - Heart Failure/ME Heart Failure/ME: NT-Pro-B Natriuret Pep 1574 pg/mL (<300) H 11/11/19 06:18 - BP Control BP Control: Blood Pressure 147/63 Blood Pressure 150/49 <Jovon Chan III - Last Filed: 11/14/19 15:25> Pharmacy Clinical Review - Admission Clinical Review (Last Updated 11/14/19 @ 10:30 by Lucy Gomes DO) Chronic iron deficiency anemia (Acute) Pleural effusion (Acute) Renal mass (Acute) Vascular dementia (Acute) Anemia due to GI blood loss (Acute) Diverticulitis (Acute) Acute exacerbation of chronic obstructive pulmonary disease (Acute) Morphine Adverse Reaction (Severe, Uncoded 11/10/19 10:35) Agitation Height 5 ft 1.81 in Weight 81.5 kg - Renal Dosing Renal Dosing: BUN 37 mg/dL (7-18) H D 11/14/19 06:20 Creatinine 1.87 mg/dL (0.55-1.02) H 11/14/19 06:20 - Anticoagulation Anticoagulation: Hgb 8.1 g/dL (12.0-15.5) L 11/14/19 06:20 Hct 28.3 % (36.0-46.0) L 11/14/19 06:20 Plt Count 322 x1000/uL (130-400) 11/14/19 06:20 Creatinine 1.87 mg/dL (0.55-1.02) H 11/14/19 06:20 - Relevant Labs Sodium 143 mmol/L (136-145) 11/14/19 06:20 Potassium 4.4 mmol/L (3.5-5.1) 11/14/19 06:20 Chloride 102 mmol/L (98-107) 11/14/19 06:20 C-Reactive Protein 11.84 mg/dL (0.0-0.3) H 11/14/19 06:20 - DM Control DM Control: Glucose 206 mg/dL (74-106) H 11/14/19 06:20 Hemoglobin A1c 7.9 % (3.8-5.6) H 11/11/19 06:18 Finger Stick Blood Glucose 189 Finger Stick Blood Glucose 189 Finger Stick Blood Glucose 189 Finger Stick Blood Glucose 239 Finger Stick Blood Glucose 239 Finger Stick Blood Glucose 239 - Heart Failure/ME Heart Failure/ME: NT-Pro-B Natriuret Pep 1574 pg/mL (<300) H 11/11/19 06:18 - BP Control BP Control: Blood Pressure 134/68 Blood Pressure 170/63 Blood Pressure 140/64
--- NOTE | 2019-11-11 13:54 | PGE_ITS ---
Date of Service Date of service: 11/11/19 Time of Service: 13:15 Assessment and Plan Assessment and plan (1) Anemia: Status: Chronic Assessment and plan: A\\ Suspect this is mostly due to Her Chronic Kidney disease.\ I can't find a record of a heme positive stool. If patient has a BM would check. P\\ No plan for EGD or [place] as inpatient unless she deteriorates Qualifiers: Anemia type: due to chronic kidney disease Chronic kidney disease stage: stage 3 (moderate) Qualified Code(s): N18.3 - Chronic kidney disease, stage 3 (moderate); D63.1 - Anemia in chronic kidney disease (2) Diverticulitis: Status: Chronic Assessment and plan: A\\ Mild diverticulitis on CT scan I am surprised that her Leukocytosis did not improve. Patient switched to Zosyn by Dr. Malik P\\ Continue IV antibiotics Agree with advancing the patients diet stools softeners We will continue to follow Subjective Subjective Interval history since last seen: Mrs. Wilde is doing well. She doesn't complain of pain, N/V. She has been tolerating a clear liquid diet. NO BM's yet Exam GI Inspection: normal to inspection Palpation: soft, no hepatosplenomegaly and nontender Objective Objective Clinical Data: Abnormal lab results 11/10/19 11/10/19 11/10/19 Range/Units 12:00 12:00 13:50 WBC (4.4-10.8) k/cumm RBC (4.00-5.20) m/cumm Hgb (12.0-15.5) g/dL Hct (36.0-46.0) % MCH (27.0-33.0) pg MCHC (32.0-36.0) g/dL RDW (11.7-14.6) % Absolute Neutrophils (1.2-6.7) k/cumm Absolute Monocytes (0.11-0.7) k/cumm Retic Count (0.5-2.4) % Potassium 5.3 H (3.5-5.1) mmol/L Carbon Dioxide 32.4 H (21.0-32.0) mmol/L BUN 67 H (7-18) mg/dL Creatinine 3.00 H (0.55-1.02) mg/dL Glucose 226 H (74-106) mg/dL Hemoglobin A1c (3.8-5.6) % Calcium 8.4 L (8.5-10.1) mg/dL Iron 28 L (50-170) ug/dL Transferrin % Sat 9 L (15-50) % C-Reactive Protein (0.0-0.3) mg/dL NT-Pro-B Natriuret Pep (<300) pg/mL Albumin 3.3 L (3.4-5.0) g/dL Ur Leukocyte Esterase Moderate H (Negative) Urine WBC 20-50 H (0-5) HPF Crossmatch 11/10/19 11/10/19 11/11/19 Range/Units 14:22 20:11 06:18 WBC (4.4-10.8) k/cumm RBC (4.00-5.20) m/cumm Hgb 8.7 L (12.0-15.5) g/dL Hct 29.2 L (36.0-46.0) % MCH (27.0-33.0) pg MCHC (32.0-36.0) g/dL RDW (11.7-14.6) % Absolute Neutrophils (1.2-6.7) k/cumm Absolute Monocytes (0.11-0.7) k/cumm Retic Count (0.5-2.4) % Potassium (3.5-5.1) mmol/L Carbon Dioxide (21.0-32.0) mmol/L BUN (7-18) mg/dL Creatinine (0.55-1.02) mg/dL Glucose (74-106) mg/dL Hemoglobin A1c 7.9 H (3.8-5.6) % Calcium (8.5-10.1) mg/dL Iron (50-170) ug/dL Transferrin % Sat (15-50) % C-Reactive Protein (0.0-0.3) mg/dL NT-Pro-B Natriuret Pep (<300) pg/mL Albumin (3.4-5.0) g/dL Ur Leukocyte Esterase (Negative) Urine WBC (0-5) HPF Crossmatch See Detail 11/11/19 11/11/19 Range/Units 06:18 06:18 WBC 14.57 H (4.4-10.8) k/cumm RBC 3.09 L (4.00-5.20) m/cumm Hgb 8.0 L (12.0-15.5) g/dL Hct 27.1 L (36.0-46.0) % MCH 25.9 L (27.0-33.0) pg MCHC 29.5 L (32.0-36.0) g/dL RDW 16.8 H (11.7-14.6) % Absolute Neutrophils 11.58 H (1.2-6.7) k/cumm Absolute Monocytes 0.92 H (0.11-0.7) k/cumm Retic Count 3.5 H (0.5-2.4) % Potassium (3.5-5.1) mmol/L Carbon Dioxide 35.1 H (21.0-32.0) mmol/L BUN 63 H (7-18) mg/dL Creatinine 2.41 H (0.55-1.02) mg/dL Glucose 204 H (74-106) mg/dL Hemoglobin A1c (3.8-5.6) % Calcium 8.4 L (8.5-10.1) mg/dL Iron (50-170) ug/dL Transferrin % Sat (15-50) % C-Reactive Protein 6.96 H (0.0-0.3) mg/dL NT-Pro-B Natriuret Pep 1574 H (<300) pg/mL Albumin 3.1 L (3.4-5.0) g/dL Ur Leukocyte Esterase (Negative) Urine WBC (0-5) HPF Crossmatch Vital Signs Temperature 99.3 F 11/11/19 10:59 Temperature Source Tympanic 11/11/19 10:59 Pulse 84 11/11/19 12:57 Pulse Rhythm Regular 11/11/19 08:35 Pulse 73 11/10/19 15:10 Respiratory Rate 20 11/11/19 12:57 Respiratory Effort 11/11/19 08:35 Respiratory Depth Shallow 11/11/19 08:35 Respiratory Pattern Normal 11/11/19 08:35 Blood Pressure 124/57 L 11/11/19 10:59 Blood Pressure Mean 66 11/10/19 15:01 Blood Pressure Position Supine 11/10/19 10:24 Pulse Oximetry 96 11/11/19 12:57 Oxygen Delivery Method Nasal Cannula 11/11/19 12:57 Oxygen Flow Rate 4 11/11/19 12:57 Pain Level 0 11/11/19 10:59 Comment 11/10/19 10:24 Intake & Output 11/10/19 11/11/19 11/11/19 23:59 11:59 23:59 Intake Total 445 / 445 600 / 1320 720 / 1320 Output Total 1900 / 1900 1125 / 1625 500 / 1625 Balance -1455 / -1455 -525 / -305 220 / -305 Weight 199 lb 1.239 oz 189 lb 13.088 oz Intake: IV 110 / 110 100 / 100 Oral 500 / 1220 720 / 1220 Blood Product 285 / 285 Rbc Leuko Reduced Unit 285 / 285 [id number] Other 50 / 50 Rbc Leuko Reduced Unit 50 / 50 [id number] Output: Urine 1900 / 1900 1125 / 1625 500 / 1625 Other: Urine Color Yellow Pale Yellow Urine Appearance Clear Clear Clear Urine Odor Normal Normal Voiding Methods Bedside Commode Bedside Commode Bedside Commode Laboratory Results WBC 14.57 k/cumm (4.4-10.8) H 11/11/19 06:18 RBC 3.09 m/cumm (4.00-5.20) L 11/11/19 06:18 Hgb 8.0 g/dL (12.0-15.5) L 11/11/19 06:18 Hct 27.1 % (36.0-46.0) L 11/11/19 06:18 MCV 87.7 fL (80-95) 11/11/19 06:18 MCH 25.9 pg (27.0-33.0) L 11/11/19 06:18 MCHC 29.5 g/dL (32.0-36.0) L 11/11/19 06:18 RDW 16.8 % (11.7-14.6) H 11/11/19 06:18 Plt Count 312 x1000/uL (130-400) 11/11/19 06:18 MPV 10.2 fL (8.0-11.0) 11/11/19 06:18 Immature Gran % 1.4 % 11/11/19 06:18 Neutrophils % 79.5 11/11/19 06:18 Lymphocytes % 11.7 11/11/19 06:18 Monocytes % 6.3 11/11/19 06:18 Eosinophils % 0.8 11/11/19 06:18 Basophils % 0.3 11/11/19 06:18 Absolute Neutrophils 11.58 k/cumm (1.2-6.7) H 11/11/19 06:18 Absolute Lymphocytes 1.70 k/cumm (1.2-3.4) 11/11/19 06:18 Absolute Monocytes 0.92 k/cumm (0.11-0.7) H 11/11/19 06:18 Absolute Eosinophils 0.12 k/cumm (0.0-0.7) 11/11/19 06:18 Absolute Basophils 0.04 k/cumm (0.0-0.2) 11/11/19 06:18 Retic Count 3.5 % (0.5-2.4) H 11/11/19 06:18 Sodium 138 mmol/L (136-145) 11/11/19 06:18 Potassium 4.5 mmol/L (3.5-5.1) 11/11/19 06:18 Chloride 98 mmol/L (98-107) 11/11/19 06:18 Carbon Dioxide 35.1 mmol/L (21.0-32.0) H 11/11/19 06:18 Anion Gap 4.9 mmol/L (3-11) 11/11/19 06:18 BUN 63 mg/dL (7-18) H 11/11/19 06:18 Creatinine 2.41 mg/dL (0.55-1.02) H 11/11/19 06:18 Estimated GFR/1.73 m2 19.48 (mL/min/1.73m2) 11/11/19 06:18 Glucose 204 mg/dL (74-106) H 11/11/19 06:18 Hemoglobin A1c 7.9 % (3.8-5.6) H 11/11/19 06:18 Calcium 8.4 mg/dL (8.5-10.1) L 11/11/19 06:18 Iron 28 ug/dL (50-170) L 11/10/19 12:00 TIBC 316 ug/dL (250-450) 11/10/19 12:00 Transferrin % Sat 9 % (15-50) L 11/10/19 12:00 Ferritin 60 ng/mL (8-252) 11/11/19 06:18 Total Bilirubin 0.3 mg/dL (0.2-1.0) 11/11/19 06:18 AST 20 U/L (15-37) 11/11/19 06:18 ALT 22 U/L (14-59) 11/11/19 06:18 Alkaline Phosphatase 88 U/L (46-116) 11/11/19 06:18 C-Reactive Protein 6.96 mg/dL (0.0-0.3) H 11/11/19 06:18 NT-Pro-B Natriuret Pep 1574 pg/mL (<300) H 11/11/19 06:18 Total Protein 7.0 g/dL (6.4-8.2) 11/11/19 06:18 Albumin 3.1 g/dL (3.4-5.0) L 11/11/19 06:18 Lipase 111 U/L (73-393) 11/10/19 12:00 Vitamin B12 564 pg/mL (193-986) 11/11/19 06:18 TSH 2.14 uIU/mL (0.36-3.74) 11/10/19 12:00 Urine Color Yellow (Yellow) 11/10/19 13:50 Urine Clarity Clear (Clear) 11/10/19 13:50 Urine pH 5.5 (5-8) 11/10/19 13:50 Ur Specific [place] 1.015 (1.005-1.025) 11/10/19 13:50 Urine Protein Negative mg/dL (Negative) 11/10/19 13:50 Urine Ketones Negative mg/dL (Negative) 11/10/19 13:50 Urine Blood Negative (Negative) 11/10/19 13:50 Urine Nitrite Negative (Negative) 11/10/19 13:50 Urine Bilirubin Negative (Negative) 11/10/19 13:50 Urine Urobilinogen 0.2 EU/dL (Up TO 0.2) 11/10/19 13:50 Ur Leukocyte Esterase Moderate (Negative) H 11/10/19 13:50 Urine RBC 0-2 HPF (0-2) 11/10/19 13:50 Urine WBC 20-50 HPF (0-5) H 11/10/19 13:50 Ur Epithelial Cells Moderate HPF (Negative) 11/10/19 13:50 Urine Crystals Negative HPF (Negative) 11/10/19 13:50 Urine Bacteria Moderate HPF (Negative) 11/10/19 13:50 Urine Casts Negative LPF (Negative) 11/10/19 13:50 Urine Mucus Negative (Negative) 11/10/19 13:50 Ur Culture Indicated? Yes 11/10/19 13:50 Urine Glucose Negative mg/dL (Negative) 11/10/19 13:50 Patient ABO/Rh A Positive 11/10/19 14:22 Antibody Screen Negative 11/10/19 14:22 Crossmatch See Detail 11/10/19 14:22
[2019-11-11] MEDS: Furosemide 40 MG/4 ML VIAL IVP (14:18)
[2019-11-11] MEDS: Normal Saline Flush 10 ML SYR IVP ×2 (14:18→19:59)
--- NOTE | 2019-11-11 15:20 | W.NUTCONSULT ---
Date of service: 11/11/19 Time of Service: 15:20 Nutritional Consult ASSESSMENT: 79 year old female admitted with pleural effusion and diverticulitis. PMH: anemia, GERD, renal mass, dementia. Meds include FeSo4, MVI, lasix and insulin. Labs include elevated A1C (7.9%) and glucose (280 mg/dl). Following Diabetic Full Liquid Diet with excellent intake. Met with Karina today who reports no n/v/d but does c/o mild stomach discomfort. BMI indicates class 1 obesity. Recommend Dm consult in view of elevated A1C for optimal blood sugar control. Currently Karina is not at nutritional risk as is meeting nutrient and fluid needs and weight acceptable for age. INTERVENTION: Diabetic Full Liquid Diet advance as tolerated MONITORING AND EVALUATION: weight, po intake, labs Time Spent in Nutritional Counseling and Treatment: 10 min spent face to face
[2019-11-11] MEDS: Pantoprazole 40 MG TABCR PO (19:54)
[2019-11-11] MEDS: Atorvastatin 40 MG TAB PO (19:54)
[2019-11-12] VITALS (14 sets, daily range): BP systolic 131–189; BP diastolic 58–74; PULSE 86–97; RESP 2–20; TEMP 36.6–38.4; O2SAT 92–100
[2019-11-12] MEDS: Albuterol/Ipratropium 3 ML UPD VIAL UPD ×5 (00:10→23:13)
[2019-11-12] MEDS: Acetaminophen 325 MG TAB 650 MG PO ×2 (03:47→23:12)
[2019-11-12] MEDS: PIPERACILLIN/TAZO 3.375 GM in Normal Saline 50 ML IVPB ×3 (03:48→19:38)
[2019-11-12] MEDS: Normal Saline Flush 10 ML SYR IVP (03:48)
[2019-11-12] MEDS: Levothyroxine 75 MCG TAB PO (05:47)
[2019-11-12 06:56] LABS: Abs Immature Grans 0.12 k/cumm (0.0-0.09); Absolute Lymphocyte Count 1.39 k/cumm (1.2-3.4); Basophils % 0.6; Eosinophils % 1.3; HGB 7.9 g/dL (12.0-15.5); Mean Corp. HGB Concentration 29.3 g/dL (32.0-36.0); Mean Corpuscular Volume 88.8 fL (80-95); Mean Platelet Volume 10.3 fL (8.0-11.0); Monocytes % 6.7; Neutrophils % 79.4; Platelet Count 302 x1000/uL (130-400); RBC 3.04 m/cumm (4.00-5.20); RBC Distribution Width 17.2 % (11.7-14.6)
[2019-11-12 07:00] LABS: Absolute Basophil Count 0.08 k/cumm (0.0-0.2); Absolute Eosinophil Count 0.16 k/cumm (0.0-0.7); Absolute Monocyte Count 0.84 k/cumm (0.11-0.7)
[2019-11-12 07:25] LABS: Anion Gap 4.6 mmol/L (3-11); BUN 51 mg/dL (7-18); C-Reactive Protein 15.65 mg/dL (0.0-0.3); CO2 36.4 mmol/L (21.0-32.0); CREATININE 2.21 mg/dL (0.55-1.02); Chloride 100 mmol/L (98-107); Estimated GFR 21.53 (mL/min/1.73m2); Glucose 164 mg/dL (74-106); Potassium 4.5 mmol/L (3.5-5.1); Sodium 141 mmol/L (136-145)
[2019-11-12] MEDS: Insulin Aspart 300 UNITS/3 ML PEN SC ×3 (08:34→17:29)
[2019-11-12] MEDS: PARoxetine 20 MG TAB PO (08:35)
[2019-11-12] MEDS: Furosemide 40 MG TAB PO ×2 (08:35→16:28)
[2019-11-12] MEDS: Polyethylene Glycol 3350 17 GM PACKET PO (08:35)
[2019-11-12] MEDS: Pantoprazole 40 MG TABCR PO ×2 (08:35→19:38)
[2019-11-12] MEDS: Metoprolol CR 25 MG TABCR PO (08:35)
[2019-11-12] MEDS: Isosorbide Dinitrate 10 MG TAB 30 MG PO ×2 (08:35→19:37)
[2019-11-12] MEDS: Sucralfate 1 GM TAB PO ×4 (08:36→21:47)
[2019-11-12] MEDS: Gabapentin 100 MG CAP 200 MG PO ×2 (08:36→19:37)
[2019-11-12] MEDS: Apixaban 2.5 MG TAB PO (08:36)
[2019-11-12] MEDS: Budesonide/Formoterol 160/4.5 6 GM 60 PUFF INH IH ×2 (08:40→19:38)
--- NOTE | 2019-11-12 09:15 | W.UROLOGYCON ---
Assessment and Plan Assessment and plan (1) Renal mass: Status: Acute Assessment and plan: Knowing that the mass was previously a simple renal cyst, it makes more sense that the lesion is benign. It may now have some blood products internally causing it to no longer meet the simple cyst criteria. With her renal function, she is not a candidate for IV contrast. Instead of suggesting an MRI or percutaneous renal biopsy, I would suggest simply following her with renal ultrasounds every 6 months or so. I have not had a chance to discuss all this with the patient's daughter, but will do so at a later date. History of Present Illness History of Present Illness Chief Complaint: Renal masses Narrative: This is a 79-year-old woman who was admitted for issues with abdominal pain nausea and vomiting. She was evaluated with a CT scan. The scan was done without IV contrast as the patient's serum creatinine is elevated. Multiple renal masses were identified and at least 1 of them was not consistent with a simple cyst. These findings were confirmed on follow-up renal ultrasound. The patient is relatively new to our area having lived down in [place] previously. She has some dementia, so her ability to provide a history is not very good. She does have extensive medical records in her outpatient EMR that I have been able to review. Review of Systems Constitutional Constitutional: Denies fever(s) Respiratory Respiratory: Denies cough and Denies hemoptysis Genitourinary Genitourinary: Denies hematuria [facility] Medical History Anemia (Chronic) CAD (coronary artery disease) (Chronic) Carotid stenosis (Chronic) s/p bilateral CEA Chronic diastolic CHF (congestive heart failure) (Chronic) Chronic iron deficiency anemia (Acute) Chronic low back pain (Chronic) CKD (chronic kidney disease) (Chronic) COPD (chronic obstructive pulmonary disease) (Chronic) Depression with anxiety (Chronic) Diabetes mellitus (Chronic) 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 mellitus (Chronic) Diverticulitis (Acute) Functional tremor (Chronic) GERD (gastroesophageal reflux disease) (Chronic) History of pulmonary embolism (Chronic) Hyperlipidemia (Chronic) Hypertension (Chronic) Hypothyroidism (Chronic) Iron deficiency (Chronic) Obesity (BMI 30.0-34.9) (Chronic) DANYELLE (obstructive sleep apnea) (Chronic) Paroxysmal atrial fibrillation (Chronic) Peripheral vascular disease (Chronic) Renal mass (Acute) Rheumatoid arthritis (Chronic) 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) TIA (transient ischemic attack) (Chronic) Vascular dementia (Acute) Surgical History H/O cardiac catheterization (Chronic) [address] History of left-sided carotid endarterectomy (Chronic) History of right-sided carotid endarterectomy (Chronic) S/P arterial stent (Chronic) leg x2 S/P arteriovenous (AV) fistula creation (Chronic) [facility] Family History Sister Cancer Diabetes Brother Cancer Diabetes Other Heart disease Social History Smoking/Tobacco Use Status: Former Tobacco Use Alcohol Intake: never Drug use: Never Substance use type: does not use Adopted: No Foster care: No Household members: children Housing: house Number of Children: 3 Do you need help understanding health information?: Always current occupation: Retired; attends [employer] during the day Sexually active: No Do you think of yourself as: straight/heterosexual Current gender identity: female Seatbelt use: always Do you feel safe at home: Yes Do you feel safe in your relationship?: Yes Exam Narrative Exam Narrative: She appears chronically ill, but does not appear septic or toxic Her abdomen is soft with no guarding or rebound tenderness She is awake and alert. I spent over an hour reviewing records from her previous hospitalizations in [place], [place] (there are over 700 pages in her outpatient EMR records) and [facility] [place]. With her history of renal insufficiency (as evidenced by her AV fistula for potential dialysis), it makes sense that there would be other renal imaging at some point. I was able to find a renal US from [facility] on 08/08/2019 that showed all masses at that time were simple renal cysts. One of these cysts is in the exact location of the area of concern on our recent ultrasound. Results Last Vital Signs Temp 36.7 C 11/12/19 07:24 Pulse 94 H 11/12/19 07:24 Resp 19 11/12/19 07:24 BP 175/69 H 11/12/19 07:24 Pulse Ox 92 L 11/12/19 07:24 Labs Result diagrams: 11/15/19 06:20 11/15/19 06:20 Labs: Laboratory Results - last 24 hr 11/11/19 11/12/19 11/12/19 06:18 06:10 06:10 WBC 12.60 H RBC 3.04 L Hgb 7.9 L Hct 27.0 L MCV 88.8 MCH 26.0 L MCHC 29.3 L RDW 17.2 H Plt Count 302 MPV 10.3 Immature Gran % 1.0 Neutrophils % 79.4 Lymphocytes % 11.0 Monocytes % 6.7 Eosinophils % 1.3 Basophils % 0.6 Absolute Neutrophils 10.00 H Absolute Lymphocytes 1.39 Absolute Monocytes 0.84 H Absolute Eosinophils 0.16 Absolute Basophils 0.08 Sodium 141 Potassium 4.5 Chloride 100 Carbon Dioxide 36.4 H Anion Gap 4.6 BUN 51 H Creatinine 2.21 H Estimated GFR/1.73 m2 21.53 Glucose 164 H Calcium 9.0 C-Reactive Protein 15.65 H NT-Pro-B Natriuret Pep 1574 H
--- NOTE | 2019-11-12 12:30 | W.PM.PROGNOT ---
Date of Service Date of service: 11/12/19 Time of Service: 12:30 Assessment and Plan Assessment and plan (1) Diverticulitis: Status: Acute Assessment and plan: Not tolerating her diet. Increased abdominal pain and now w/ melena. She is afebrile but her leukocytosis has not resolved and her pain has increased. I will continue the Zosyn for now as it iis too soon to tell whether or not she is failing this antibiotics. I will repeat her CBC and CRP tomorrow. I am going to decrease her to clear liquids. (2) Anemia due to GI blood loss: Status: Acute Assessment and plan: Per Dr. Gomes she feels the patient is not a candidate for acute upper or lower endoscopy. We will treat her empirically with PPI and Carafate. Will monitor blood count and treat her anemia with Venofer and later she could go on epogen. (3) Hypertension: Status: Chronic Assessment and plan: blood pressures are rising. Today she is in the 170's, I am going to restart her amlodipine. (4) Paroxysmal atrial fibrillation: Status: Chronic Assessment and plan: Continue rate control with beta-blockers. Clinically she seems to be in a regular rhythm. I have stopped her apixaban in light of her melena (5) Chronic diastolic CHF (congestive heart failure): Status: Chronic Assessment and plan: Clinically she seems to have some CHF as evidenced by bilateral pleural effusions bibasilar rales. continue twice daily lasix (6) COPD (chronic obstructive pulmonary disease): Status: Chronic Assessment and plan: Continue nebulizers and oxygen at her home flow rate of 3 L/min per nasal cannula. She does have some diffuse expiratory wheezes. This may be some volume overload. If this does not respond to IV Lasix then she may need some corticosteroids to treat her COPD. (7) Diabetes mellitus: Status: Chronic Assessment and plan: Control uncertain. Check hemoglobin A1c. Reducing her Lantus slightly with dietary change on admission to just liquids. Moderate sensitivity sliding scale insulin. (8) Hypothyroidism: Status: Chronic Assessment and plan: TSH fine on outpatient levothyroxine which we will continue. (9) CAD (coronary artery disease): Status: Chronic Assessment and plan: No symptoms to suggest decompensation. Continues on statin, beta-marylou, oral nitrates; clopidogrel on hold because of GI bleed. (10) Vascular dementia: Status: Acute Assessment and plan: Monitor for agitation or delirium. Clopidogrel on hold because of GI bleed. (11) Depression with anxiety: Status: Chronic Assessment and plan: Continue outpatient dose of Paxil and buspirone (12) Renal mass: Status: Acute Assessment and plan: 2.3 cm., hypoechoic, avascular exophytic lesion on the right kidney. This will need further follow-up with urology. I will consult with Dr. Fraser (13) Pleural effusion: Status: Acute Assessment and plan: By [id number] ultrasound her effusion appears to be a simple effusion. I discontinued IV fluids and have ordered additional dose of IV Lasix. Subjective Subjective Interval history since last seen: Patient complains of increased left lower quadrant abdominal pain along with nausea but no vomiting. She had a melanotic liquid stool this morning that was grossly positive for heme. She is afebrile however her white cell count still elevated 12,600 and her CRP has gone up to 15. She is currently on Zosyn for treatment of diverticulitis. Her antibiotics were changed yesterday to Zosyn from ceftriaxone and Flagyl to improve coverage of both pulmonary as well as GI pathogens. There was some concern on her chest x-ray that she may have an underlying pneumonia although clinically she is not behaving like a pneumonia. I think she had some congestive heart failure with pleural effusions and atelectasis. I met with her daughter during the daughter's lunch hour and explained the findings of the patient including her abnormal renal ultrasound which demonstrates a cystic mass on the right kidney. Dr. Fraser has reviewed the chart and the ultrasound and his recommendation is to simply monitor this with serial ultrasounds every 6 months. Because of her chronic kidney disease she is not a good candidate for a contrast-enhanced CT or an MRI. She is also not a good surgical candidate should she need a nephrectomy. Our general surgeons do not want to perform endoscopy because of her frail condition. In light of her melanotic stools this afternoon I am going to discontinue her apixaban indefinitely. She is already on Carafate and Protonix for GI protection. I will repeat her hemogram this afternoon and if there is a significant drop from this morning's hemoglobin is 7.9 g I will transfuse her. Otherwise I will continue with venofer 200 mg IV daily for 3 days. Today is day #2 Exam Narrative Exam Narrative: Elderly female who is alert and she is oriented to person and place but not to time or circumstance. She has some mild dementia and is forgetful. Lungs are clear to auscultation anteriorly and posteriorly in upper [place] but bibasilar rales posteriorly. Heart is regular rate and rhythm Abdomen is obese soft with active bowel sounds and some tenderness in the left lower quadrant. Stool is dark black and heme positive and liquid Objective Objective Clinical Data: Abnormal lab results 11/12/19 11/12/19 Range/Units 06:10 06:10 WBC 12.60 H (4.4-10.8) k/cumm RBC 3.04 L (4.00-5.20) m/cumm Hgb 7.9 L (12.0-15.5) g/dL Hct 27.0 L (36.0-46.0) % MCH 26.0 L (27.0-33.0) pg MCHC 29.3 L (32.0-36.0) g/dL RDW 17.2 H (11.7-14.6) % Absolute Neutrophils 10.00 H (1.2-6.7) k/cumm Absolute Monocytes 0.84 H (0.11-0.7) k/cumm Carbon Dioxide 36.4 H (21.0-32.0) mmol/L BUN 51 H (7-18) mg/dL Creatinine 2.21 H (0.55-1.02) mg/dL Glucose 164 H (74-106) mg/dL C-Reactive Protein 15.65 H (0.0-0.3) mg/dL Vital Signs Temperature 36.7 C 11/12/19 07:24 Temperature Source Tympanic 11/12/19 07:24 Pulse 96 H 11/12/19 11:25 Pulse Rhythm Regular 11/12/19 07:31 Pulse 73 11/10/19 15:10 Respiratory Rate 20 11/12/19 11:25 Respiratory Effort 11/12/19 07:31 Respiratory Depth Normal 11/12/19 07:31 Respiratory Pattern Normal 11/12/19 07:31 Blood Pressure 175/69 H 11/12/19 07:24 Blood Pressure Mean 66 11/10/19 15:01 Blood Pressure Position Supine 11/10/19 10:24 Pulse Oximetry 100 11/12/19 11:25 Oxygen Delivery Method Nasal Cannula 11/12/19 11:23 Oxygen Flow Rate 3 11/12/19 11:23 Pain Level 0 11/12/19 07:24 Comment 11/12/19 07:24 Intake & Output 11/11/19 11/12/19 11/12/19 23:59 11:59 23:59 Intake Total 1157.5 / 1757.5 650 / 650 Output Total 2400 / 3925 1300 / 1300 Balance -1242.5 / -2167.5 -650 / -650 Weight 84.4 kg Intake: IV 437.5 / 537.5 50 / 50 Oral 720 / 1220 600 / 600 Output: Urine 2400 / 3925 1300 / 1300 Other: Urine Color Yellow Pale Urine Appearance Clear Clear Urine Odor Normal None Comment mixed with stool. Stool Size Small Small Stool Characteristics Formed Hard Hard Brown Voiding Methods Bedside Commode Bedside Commode Laboratory Results WBC 12.60 k/cumm (4.4-10.8) H 11/12/19 06:10 RBC 3.04 m/cumm (4.00-5.20) L 11/12/19 06:10 Hgb 7.9 g/dL (12.0-15.5) L 11/12/19 06:10 Hct 27.0 % (36.0-46.0) L 11/12/19 06:10 MCV 88.8 fL (80-95) 11/12/19 06:10 MCH 26.0 pg (27.0-33.0) L 11/12/19 06:10 MCHC 29.3 g/dL (32.0-36.0) L 11/12/19 06:10 RDW 17.2 % (11.7-14.6) H 11/12/19 06:10 Plt Count 302 x1000/uL (130-400) 11/12/19 06:10 MPV 10.3 fL (8.0-11.0) 11/12/19 06:10 Immature Gran % 1.0 % 11/12/19 06:10 Neutrophils % 79.4 11/12/19 06:10 Lymphocytes % 11.0 11/12/19 06:10 Monocytes % 6.7 11/12/19 06:10 Eosinophils % 1.3 11/12/19 06:10 Basophils % 0.6 11/12/19 06:10 Absolute Neutrophils 10.00 k/cumm (1.2-6.7) H 11/12/19 06:10 Absolute Lymphocytes 1.39 k/cumm (1.2-3.4) 11/12/19 06:10 Absolute Monocytes 0.84 k/cumm (0.11-0.7) H 11/12/19 06:10 Absolute Eosinophils 0.16 k/cumm (0.0-0.7) 11/12/19 06:10 Absolute Basophils 0.08 k/cumm (0.0-0.2) 11/12/19 06:10 Retic Count 3.5 % (0.5-2.4) H 11/11/19 06:18 Sodium 141 mmol/L (136-145) 11/12/19 06:10 Potassium 4.5 mmol/L (3.5-5.1) 11/12/19 06:10 Chloride 100 mmol/L (98-107) 11/12/19 06:10 Carbon Dioxide 36.4 mmol/L (21.0-32.0) H 11/12/19 06:10 Anion Gap 4.6 mmol/L (3-11) 11/12/19 06:10 BUN 51 mg/dL (7-18) H 11/12/19 06:10 Creatinine 2.21 mg/dL (0.55-1.02) H 11/12/19 06:10 Estimated GFR/1.73 m2 21.53 (mL/min/1.73m2) 11/12/19 06:10 Glucose 164 mg/dL (74-106) H 11/12/19 06:10 Hemoglobin A1c 7.9 % (3.8-5.6) H 11/11/19 06:18 Calcium 9.0 mg/dL (8.5-10.1) 11/12/19 06:10 Iron 28 ug/dL (50-170) L 11/10/19 12:00 TIBC 316 ug/dL (250-450) 11/10/19 12:00 Transferrin % Sat 9 % (15-50) L 11/10/19 12:00 Ferritin 60 ng/mL (8-252) 11/11/19 06:18 Total Bilirubin 0.3 mg/dL (0.2-1.0) 11/11/19 06:18 AST 20 U/L (15-37) 11/11/19 06:18 ALT 22 U/L (14-59) 11/11/19 06:18 Alkaline Phosphatase 88 U/L (46-116) 11/11/19 06:18 C-Reactive Protein 15.65 mg/dL (0.0-0.3) H 11/12/19 06:10 NT-Pro-B Natriuret Pep 1574 pg/mL (<300) H 11/11/19 06:18 Total Protein 7.0 g/dL (6.4-8.2) 11/11/19 06:18 Albumin 3.1 g/dL (3.4-5.0) L 11/11/19 06:18 Lipase 111 U/L (73-393) 11/10/19 12:00 Vitamin B12 564 pg/mL (193-986) 11/11/19 06:18 TSH 2.14 uIU/mL (0.36-3.74) 11/10/19 12:00 Urine Color Yellow (Yellow) 11/10/19 13:50 Urine Clarity Clear (Clear) 11/10/19 13:50 Urine pH 5.5 (5-8) 11/10/19 13:50 Ur Specific [place] 1.015 (1.005-1.025) 11/10/19 13:50 Urine Protein Negative mg/dL (Negative) 11/10/19 13:50 Urine Ketones Negative mg/dL (Negative) 11/10/19 13:50 Urine Blood Negative (Negative) 11/10/19 13:50 Urine Nitrite Negative (Negative) 11/10/19 13:50 Urine Bilirubin Negative (Negative) 11/10/19 13:50 Urine Urobilinogen 0.2 EU/dL (Up TO 0.2) 11/10/19 13:50 Ur Leukocyte Esterase Moderate (Negative) H 11/10/19 13:50 Urine RBC 0-2 HPF (0-2) 11/10/19 13:50 Urine WBC 20-50 HPF (0-5) H 11/10/19 13:50 Ur Epithelial Cells Moderate HPF (Negative) 11/10/19 13:50 Urine Crystals Negative HPF (Negative) 11/10/19 13:50 Urine Bacteria Moderate HPF (Negative) 11/10/19 13:50 Urine Casts Negative LPF (Negative) 11/10/19 13:50 Urine Mucus Negative (Negative) 11/10/19 13:50 Ur Culture Indicated? Yes 11/10/19 13:50 Urine Glucose Negative mg/dL (Negative) 11/10/19 13:50 Patient ABO/Rh A Positive 11/10/19 14:22 Antibody Screen Negative 11/10/19 14:22 Crossmatch See Detail 11/10/19 14:22
--- NOTE | 2019-11-12 14:27 | W.NUTRFU ---
Date of service: 11/12/19 Time of Service: 14:27 Nutritional Follow up NOTE: Karina continues to follow Full Liquid Diet, supplemented with glucerna shake TID and meeting 100% nutrient and fluid needs. Diet to be advanced as tolerated. Continuous to complain about heart burn, MD aware. Time Spent in Nutritional Counseling and Treatment: 5 min spent face to face
[2019-11-12] MEDS: IRON SUCROSE COMPLEX 200 MG in Normal Saline 100 ML 400 MG IVPB (14:50)
--- NOTE | 2019-11-12 15:00 | CMPROGNOTE_ITS ---
- If Service Date Differs Date of service: 11/12/19 Time of Service: 15:00 Care Management Progress Note S/O: Karina was sitting up on the side of the bed when CM met with her. She stated that she was not having a very good day. She said that her abdomen hurt. Karina continues to receive IV antibiotics, respiratory treatments and diuretics. Her blood pressures are a little high but her oxygen saturation is good, generally running between 95 and 100 on 3 L of nasal oxygen. Karina was febrile during the night, however her temperatures have been normal today. A: Karina is a 79 year old woman admitted to [facility] on 11/10/19 with diverticulitis and DARION. P:Karina will likely be discharged home with no new services. She will follow up with her PCP and discharge plan of care. Karina will resume attending adult day care. CM will continue to support Karina, her family and her discharge planning needs.
--- NOTE | 2019-11-12 15:25 | PGE_ITS ---
Date of Service Date of service: 11/12/19 Time of Service: 15:25 Assessment and Plan Assessment and plan (1) Anemia: Status: Chronic Qualifiers: Anemia type: due to chronic kidney disease Chronic kidney disease stage: stage 3 (moderate) Qualified Code(s): N18.3 - Chronic kidney disease, stage 3 (moderate); D63.1 - Anemia in chronic kidney disease (2) GERD (gastroesophageal reflux disease): Status: Chronic Assessment and plan: pt is not a good candidate for anesthesia. I would cont to treat w/ PPI and carafate IV venefer Part of her anemia may be due to CKD. consider epogen as a chronic medication. cont abx and treat diverticulitis. cont clears for now. physical therapy (3) Anemia due to GI blood loss: Status: Acute (4) Vascular dementia: Status: Acute (5) Renal mass: Status: Acute Assessment and plan: pt is not candidate for bx or surgery appears benign on US. cont observation (6) Diverticulitis: Status: Acute Subjective Subjective Interval history since last seen: pt is very poor historian b/c dementia. She denies pain or nausea. She had a BM today. Her daughter says it was black. Pt ate 1/2 liquid tray and said she is hungry. She denies pain or temp. no distention or peritnoneal signs. Currently she is hypertensive. 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 Exam Const General: cooperative, comfortable and no acute distress Orientation: alert and awake Chest Chest: normal inspection of the chest Resp Effort & Inspection: normal respiratory effort Auscultation: clear to auscultation bilaterally GI Inspection: normal to inspection and obesity Palpation: soft, not firm, no guarding and No ascites Auscultation: normal bowel sounds Skin Wounds: no wounds Other: no breakdown Extrem General: no clubbing, cyanosis or edema and no calf tenderness bilaterally Objective Objective Clinical Data: Abnormal lab results 11/12/19 11/12/19 Range/Units 06:10 06:10 WBC 12.60 H (4.4-10.8) k/cumm RBC 3.04 L (4.00-5.20) m/cumm Hgb 7.9 L (12.0-15.5) g/dL Hct 27.0 L (36.0-46.0) % MCH 26.0 L (27.0-33.0) pg MCHC 29.3 L (32.0-36.0) g/dL RDW 17.2 H (11.7-14.6) % Absolute Neutrophils 10.00 H (1.2-6.7) k/cumm Absolute Monocytes 0.84 H (0.11-0.7) k/cumm Carbon Dioxide 36.4 H (21.0-32.0) mmol/L BUN 51 H (7-18) mg/dL Creatinine 2.21 H (0.55-1.02) mg/dL Glucose 164 H (74-106) mg/dL C-Reactive Protein 15.65 H (0.0-0.3) mg/dL Vital Signs Temperature 36.6 C 11/12/19 11:36 Temperature Source Tympanic 11/12/19 11:36 Pulse 87 11/12/19 11:36 Pulse Rhythm Regular 11/12/19 07:31 Pulse 73 11/10/19 15:10 Respiratory Rate 18 11/12/19 11:36 Respiratory Effort 11/12/19 07:31 Respiratory Depth Normal 11/12/19 07:31 Respiratory Pattern Normal 11/12/19 07:31 Blood Pressure 176/60 H 11/12/19 12:00 Blood Pressure Mean 66 11/10/19 15:01 Blood Pressure Position Supine 11/10/19 10:24 Pulse Oximetry 95 11/12/19 11:36 Oxygen Delivery Method Nasal Cannula 11/12/19 11:36 Oxygen Flow Rate 3 11/12/19 11:36 Pain Level 0 11/12/19 11:36 Comment 11/12/19 07:24 Intake & Output 11/11/19 11/12/19 11/12/19 23:59 11:59 23:59 Intake Total 1157.5 / 1757.5 1190 / 1640 450 / 1640 Output Total 2400 / 3925 1300 / 1500 200 / 1500 Balance -1242.5 / -2167.5 -110 / 140 250 / 140 Weight 84.4 kg Intake: IV 437.5 / 537.5 100 / 100 Oral 720 / 1220 1090 / 1540 450 / 1540 Output: Urine 2400 / 3925 1300 / 1500 200 / 1500 Other: Urine Color Yellow Pale Urine Appearance Clear Clear Urine Odor Normal None Comment mixed with stool. Stool Occult Blood Positive Stool Size Small Small Large Stool Characteristics Formed Hard Soft Hard Black Brown Voiding Methods Bedside Commode Bedside Commode Bedside Commode Laboratory Results WBC 12.60 k/cumm (4.4-10.8) H 11/12/19 06:10 RBC 3.04 m/cumm (4.00-5.20) L 11/12/19 06:10 Hgb 7.9 g/dL (12.0-15.5) L 11/12/19 06:10 Hct 27.0 % (36.0-46.0) L 11/12/19 06:10 MCV 88.8 fL (80-95) 11/12/19 06:10 MCH 26.0 pg (27.0-33.0) L 11/12/19 06:10 MCHC 29.3 g/dL (32.0-36.0) L 11/12/19 06:10 RDW 17.2 % (11.7-14.6) H 11/12/19 06:10 Plt Count 302 x1000/uL (130-400) 11/12/19 06:10 MPV 10.3 fL (8.0-11.0) 11/12/19 06:10 Immature Gran % 1.0 % 11/12/19 06:10 Neutrophils % 79.4 11/12/19 06:10 Lymphocytes % 11.0 11/12/19 06:10 Monocytes % 6.7 11/12/19 06:10 Eosinophils % 1.3 11/12/19 06:10 Basophils % 0.6 11/12/19 06:10 Absolute Neutrophils 10.00 k/cumm (1.2-6.7) H 11/12/19 06:10 Absolute Lymphocytes 1.39 k/cumm (1.2-3.4) 11/12/19 06:10 Absolute Monocytes 0.84 k/cumm (0.11-0.7) H 11/12/19 06:10 Absolute Eosinophils 0.16 k/cumm (0.0-0.7) 11/12/19 06:10 Absolute Basophils 0.08 k/cumm (0.0-0.2) 11/12/19 06:10 Retic Count 3.5 % (0.5-2.4) H 11/11/19 06:18 Sodium 141 mmol/L (136-145) 11/12/19 06:10 Potassium 4.5 mmol/L (3.5-5.1) 11/12/19 06:10 Chloride 100 mmol/L (98-107) 11/12/19 06:10 Carbon Dioxide 36.4 mmol/L (21.0-32.0) H 11/12/19 06:10 Anion Gap 4.6 mmol/L (3-11) 11/12/19 06:10 BUN 51 mg/dL (7-18) H 11/12/19 06:10 Creatinine 2.21 mg/dL (0.55-1.02) H 11/12/19 06:10 Estimated GFR/1.73 m2 21.53 (mL/min/1.73m2) 11/12/19 06:10 Glucose 164 mg/dL (74-106) H 11/12/19 06:10 Hemoglobin A1c 7.9 % (3.8-5.6) H 11/11/19 06:18 Calcium 9.0 mg/dL (8.5-10.1) 11/12/19 06:10 Iron 28 ug/dL (50-170) L 11/10/19 12:00 TIBC 316 ug/dL (250-450) 11/10/19 12:00 Transferrin % Sat 9 % (15-50) L 11/10/19 12:00 Ferritin 60 ng/mL (8-252) 11/11/19 06:18 Total Bilirubin 0.3 mg/dL (0.2-1.0) 11/11/19 06:18 AST 20 U/L (15-37) 11/11/19 06:18 ALT 22 U/L (14-59) 11/11/19 06:18 Alkaline Phosphatase 88 U/L (46-116) 11/11/19 06:18 C-Reactive Protein 15.65 mg/dL (0.0-0.3) H 11/12/19 06:10 NT-Pro-B Natriuret Pep 1574 pg/mL (<300) H 11/11/19 06:18 Total Protein 7.0 g/dL (6.4-8.2) 11/11/19 06:18 Albumin 3.1 g/dL (3.4-5.0) L 11/11/19 06:18 Lipase 111 U/L (73-393) 11/10/19 12:00 Vitamin B12 564 pg/mL (193-986) 11/11/19 06:18 TSH 2.14 uIU/mL (0.36-3.74) 11/10/19 12:00 Urine Color Yellow (Yellow) 11/10/19 13:50 Urine Clarity Clear (Clear) 11/10/19 13:50 Urine pH 5.5 (5-8) 11/10/19 13:50 Ur Specific [place] 1.015 (1.005-1.025) 11/10/19 13:50 Urine Protein Negative mg/dL (Negative) 11/10/19 13:50 Urine Ketones Negative mg/dL (Negative) 11/10/19 13:50 Urine Blood Negative (Negative) 11/10/19 13:50 Urine Nitrite Negative (Negative) 11/10/19 13:50 Urine Bilirubin Negative (Negative) 11/10/19 13:50 Urine Urobilinogen 0.2 EU/dL (Up TO 0.2) 11/10/19 13:50 Ur Leukocyte Esterase Moderate (Negative) H 11/10/19 13:50 Urine RBC 0-2 HPF (0-2) 11/10/19 13:50 Urine WBC 20-50 HPF (0-5) H 11/10/19 13:50 Ur Epithelial Cells Moderate HPF (Negative) 11/10/19 13:50 Urine Crystals Negative HPF (Negative) 11/10/19 13:50 Urine Bacteria Moderate HPF (Negative) 11/10/19 13:50 Urine Casts Negative LPF (Negative) 11/10/19 13:50 Urine Mucus Negative (Negative) 11/10/19 13:50 Ur Culture Indicated? Yes 11/10/19 13:50 Urine Glucose Negative mg/dL (Negative) 11/10/19 13:50 Patient ABO/Rh A Positive 11/10/19 14:22 Antibody Screen Negative 11/10/19 14:22 Crossmatch See Detail 11/10/19 14:22
[2019-11-12 15:58] LABS: HCT 26.5 % (36.0-46.0)
[2019-11-12] MEDS: Atorvastatin 40 MG TAB PO (19:37)
[2019-11-13] VITALS (7 sets, daily range): BP systolic 101–183; BP diastolic 49–69; PULSE 83–99; RESP 17–20; TEMP 36.4–37.4; O2SAT 94–97
[2019-11-13] MEDS: PIPERACILLIN/TAZO 3.375 GM in Normal Saline 50 ML IVPB ×3 (03:22→23:35)
[2019-11-13] MEDS: Albuterol/Ipratropium 3 ML UPD VIAL UPD ×4 (06:40→23:36)
[2019-11-13] MEDS: Levothyroxine 75 MCG TAB PO (06:41)
[2019-11-13 07:00] LABS: Abs Immature Grans 0.14 k/cumm (0.0-0.09); Absolute Basophil Count 0.07 k/cumm (0.0-0.2); Absolute Eosinophil Count 0.28 k/cumm (0.0-0.7); Absolute Lymphocyte Count 1.61 k/cumm (1.2-3.4); Absolute Monocyte Count 0.73 k/cumm (0.11-0.7); Absolute Neutrophil Count 8.52 k/cumm (1.2-6.7); Basophils % 0.6; Eosinophils % 2.5; HCT 28.4 % (36.0-46.0); HGB 8.1 g/dL (12.0-15.5); Immature Grans % 1.2 %; Lymphocytes % 14.2; Mean Corp. HGB Concentration 28.5 g/dL (32.0-36.0); Mean Corpuscular Hemoglobin 25.7 pg (27.0-33.0); Mean Corpuscular Volume 90.2 fL (80-95); Mean Platelet Volume 9.9 fL (8.0-11.0); Monocytes % 6.4; Neutrophils % 75.1; Platelet Count 302 x1000/uL (130-400); RBC 3.15 m/cumm (4.00-5.20); RBC Distribution Width 17.5 % (11.7-14.6); White Blood Cell Count 11.35 k/cumm (4.4-10.8)
[2019-11-13 07:07] LABS: Anion Gap 2.1 mmol/L (3-11); BUN 46 mg/dL (7-18); CO2 39.9 mmol/L (21.0-32.0); CREATININE 2.03 mg/dL (0.55-1.02); Calcium 9.3 mg/dL (8.5-10.1); Chloride 101 mmol/L (98-107); Estimated GFR 23.75 (mL/min/1.73m2); Glucose 225 mg/dL (74-106); Potassium 4.4 mmol/L (3.5-5.1); Sodium 143 mmol/L (136-145)
[2019-11-13 07:22] LABS: Anisocytosis 2+; Diff Comment RBC Morph Reviewed; Hypochromasia 2+; Polychromasia Present
[2019-11-13] MEDS: Gabapentin 100 MG CAP 200 MG PO ×2 (07:54→20:14)
[2019-11-13] MEDS: Pantoprazole 40 MG TABCR PO ×2 (07:55→20:14)
[2019-11-13] MEDS: Furosemide 40 MG TAB PO ×2 (07:55→16:15)
[2019-11-13] MEDS: Insulin Aspart 300 UNITS/3 ML PEN SC ×4 (07:55→17:28)
[2019-11-13] MEDS: Metoprolol CR 25 MG TABCR PO (07:55)
[2019-11-13] MEDS: PARoxetine 20 MG TAB PO (07:55)
[2019-11-13] MEDS: Isosorbide Dinitrate 10 MG TAB 30 MG PO ×2 (07:55→20:13)
[2019-11-13] MEDS: Sucralfate 1 GM TAB PO ×3 (07:55→20:15)
[2019-11-13] MEDS: Polyethylene Glycol 3350 17 GM PACKET PO (07:56)
[2019-11-13] MEDS: IRON SUCROSE COMPLEX 200 MG in Normal Saline 100 ML 400 MG IVPB (08:25)
[2019-11-13] MEDS: Budesonide/Formoterol 160/4.5 6 GM 60 PUFF INH IH ×2 (08:40→20:16)
--- NOTE | 2019-11-13 11:26 | PGE_ITS ---
Date of Service Date of service: 11/13/19 Time of Service: 11:26 Assessment and Plan Assessment and plan (1) Gastrointestinal bleeding: Status: Chronic Qualifiers: GI bleed type/associated pathology: melena Qualified Code(s): K92.1 - Melena (2) Anemia: Status: Chronic Assessment and plan: PPI/Carafate has had Venefer consider eopegen brother is POA. daughter has papers that she can make decisions in an emergency as well. She should bring them in so we can have them on file. diet as tolerated- no raw fruit/vegy. no beef/pork. no breads/crackers/chips family wants to wait another 24 hrs and see if she can/will eat Qualifiers: Anemia type: due to chronic kidney disease Chronic kidney disease stage : stage 3 (moderate) Qualified Code(s): N18.3 - Chronic kidney disease, stage 3 (moderate); D63.1 - Anemia in chronic kidney disease (3) GERD (gastroesophageal reflux disease): Status: Chronic (4) Renal mass: Status: Acute Assessment and plan: indeterminant. pt is not a candidate for Bx (5) Vascular dementia: Status: Acute (6) Diverticulitis: Status: Acute Assessment and plan: cont w/ zosyn soft diet (7) Anemia due to GI blood loss: Status: Acute (8) Acute exacerbation of chronic obstructive pulmonary disease: Status: Acute Subjective Subjective Interval history since last seen: 10am: d/w pt care w/ daughter last pm. She is frstrated b/c we are not doing anything and mother is not getting better. Pt had lg black BM yest. She was on plavix and a NAOC. She did get abixiban yest at 8am. She is on IV protonix and carafate. She denies any pain. Not eating much. Hgb stable around 8. I did d/w her care w/ anethesia today. She is at high risk for WI/CVA, but are willing to do EGD. pt can't give an hx. duaghter is not here. VS have been stable all night. no N/V. denies pain w/ palpataition. 1300 daughter is here and she adn sister decide after hearing risks of EGD and anethesia that they want to wait another day. VSS. hgb around 8. pt not eating. clinically denies pain and no shaggy non palpation. stools have been dark and heme+ pt on PPI and carafate. hold all anticaogs. Exam Const Other: pt is very anxious and tearful. says she is not eating b/c no one gives her food. no observed vomting. x2 BM yest. no gross blood, but black and h greg+. BP stable adn no tachy. pt cannot give any history Chest Chest: normal inspection of the chest Resp Effort & Inspection: normal respiratory effort and able to speak in complete sentences Auscultation: clear to auscultation bilaterally GI Palpation: soft Other: denies any pain. no R/R/G she has never had any upper GI s/s or complaints or physcial findigns Skin Other: intact Extrem General: no clubbing, cyanosis or edema Objective Objective Clinical Data: Abnormal lab results 11/12/19 11/13/19 11/13/19 Range/Units 15:33 06:45 06:45 WBC 11.35 H (4.4-10.8) k/cumm RBC 3.15 L (4.00-5.20) m/cumm Hgb 8.0 L 8.1 L (12.0-15.5) g/dL Hct 26.5 L 28.4 L (36.0-46.0) % MCH 25.7 L (27.0-33.0) pg MCHC 28.5 L (32.0-36.0) g/dL RDW 17.5 H (11.7-14.6) % Absolute Neutrophils 8.52 H (1.2-6.7) k/cumm Absolute Monocytes 0.73 H (0.11-0.7) k/cumm Carbon Dioxide 39.9 H (21.0-32.0) mmol/L Anion Gap 2.1 L (3-11) mmol/L BUN 46 H (7-18) mg/dL Creatinine 2.03 H (0.55-1.02) mg/dL Glucose 225 H (74-106) mg/dL Vital Signs Temperature 36.4 C L 11/13/19 07:30 Temperature Source Tympanic 11/13/19 07:30 Pulse 89 11/13/19 07:30 Pulse Rhythm Regular 11/13/19 07:55 Pulse 73 11/10/19 15:10 Respiratory Rate 18 11/13/19 07:30 Respiratory Effort 11/13/19 07:55 Respiratory Depth Normal 11/13/19 07:55 Respiratory Pattern Normal 11/13/19 07:55 Blood Pressure 147/63 H 11/13/19 07:30 Blood Pressure Mean 66 11/10/19 15:01 Blood Pressure Position Supine 11/10/19 10:24 Pulse Oximetry 97 11/13/19 07:30 Oxygen Delivery Method Nasal Cannula 11/13/19 07:30 Oxygen Flow Rate 3 11/13/19 07:30 Pain Level 0 11/13/19 07:30 Comment 11/12/19 07:24 Intake & Output 11/12/19 11/12/19 11/13/19 11:59 23:59 11:59 Intake Total 1190 / 2230 1040 / 2230 230 / 230 Output Total 1300 / 1700 400 / 1700 Balance -110 / 530 640 / 530 230 / 230 Weight 84.4 kg 82.5 kg Intake: IV 100 / 210 110 / 210 230 / 230 Oral 1090 / 2020 930 / 2020 Output: Urine 1300 / 1700 400 / 1700 Other: Urine Color Pale Yellow Yellow Urine Appearance Clear Clear Clear Urine Odor None Normal Normal Comment mixed with stool. mixed with stool Stool Occult Blood Positive Positive Stool Size Small Moderate Small Stool Characteristics Hard Liquid Soft Brown Formed Brown Voiding Methods Bedside Commode Bedside Commode Toilet Laboratory Results WBC 11.35 k/cumm (4.4-10.8) H 11/13/19 06:45 RBC 3.15 m/cumm (4.00-5.20) L 11/13/19 06:45 Hgb 8.1 g/dL (12.0-15.5) L 11/13/19 06:45 Hct 28.4 % (36.0-46.0) L 11/13/19 06:45 MCV 90.2 fL (80-95) 11/13/19 06:45 MCH 25.7 pg (27.0-33.0) L 11/13/19 06:45 MCHC 28.5 g/dL (32.0-36.0) L 11/13/19 06:45 RDW 17.5 % (11.7-14.6) H 11/13/19 06:45 Plt Count 302 x1000/uL (130-400) 11/13/19 06:45 MPV 9.9 fL (8.0-11.0) 11/13/19 06:45 Immature Gran % 1.2 % 11/13/19 06:45 Neutrophils % 75.1 11/13/19 06:45 Lymphocytes % 14.2 11/13/19 06:45 Monocytes % 6.4 11/13/19 06:45 Eosinophils % 2.5 11/13/19 06:45 Basophils % 0.6 11/13/19 06:45 Absolute Neutrophils 8.52 k/cumm (1.2-6.7) H 11/13/19 06:45 Absolute Lymphocytes 1.61 k/cumm (1.2-3.4) 11/13/19 06:45 Absolute Monocytes 0.73 k/cumm (0.11-0.7) H 11/13/19 06:45 Absolute Eosinophils 0.28 k/cumm (0.0-0.7) 11/13/19 06:45 Absolute Basophils 0.07 k/cumm (0.0-0.2) 11/13/19 06:45 Differential Comment Rbc morph reviewed 11/13/19 06:45 RBC Morphology See below 11/13/19 06:45 Polychromasia Present 11/13/19 06:45 Hypochromasia 2+ 11/13/19 06:45 Anisocytosis 2+ 11/13/19 06:45 Retic Count 3.5 % (0.5-2.4) H 11/11/19 06:18 Sodium 143 mmol/L (136-145) 11/13/19 06:45 Potassium 4.4 mmol/L (3.5-5.1) 11/13/19 06:45 Chloride 101 mmol/L (98-107) 11/13/19 06:45 Carbon Dioxide 39.9 mmol/L (21.0-32.0) H 11/13/19 06:45 Anion Gap 2.1 mmol/L (3-11) L 11/13/19 06:45 BUN 46 mg/dL (7-18) H 11/13/19 06:45 Creatinine 2.03 mg/dL (0.55-1.02) H 11/13/19 06:45 Estimated GFR/1.73 m2 23.75 (mL/min/1.73m2) 11/13/19 06:45 Glucose 225 mg/dL (74-106) H 11/13/19 06:45 Hemoglobin A1c 7.9 % (3.8-5.6) H 11/11/19 06:18 Calcium 9.3 mg/dL (8.5-10.1) 11/13/19 06:45 Iron 28 ug/dL (50-170) L 11/10/19 12:00 TIBC 316 ug/dL (250-450) 11/10/19 12:00 Transferrin % Sat 9 % (15-50) L 11/10/19 12:00 Ferritin 60 ng/mL (8-252) 11/11/19 06:18 Total Bilirubin 0.3 mg/dL (0.2-1.0) 11/11/19 06:18 AST 20 U/L (15-37) 11/11/19 06:18 ALT 22 U/L (14-59) 11/11/19 06:18 Alkaline Phosphatase 88 U/L (46-116) 11/11/19 06:18 C-Reactive Protein 15.65 mg/dL (0.0-0.3) H 11/12/19 06:10 NT-Pro-B Natriuret Pep 1574 pg/mL (<300) H 11/11/19 06:18 Total Protein 7.0 g/dL (6.4-8.2) 11/11/19 06:18 Albumin 3.1 g/dL (3.4-5.0) L 11/11/19 06:18 Lipase 111 U/L (73-393) 11/10/19 12:00 Vitamin B12 564 pg/mL (193-986) 11/11/19 06:18 TSH 2.14 uIU/mL (0.36-3.74) 11/10/19 12:00 Urine Color Yellow (Yellow) 11/10/19 13:50 Urine Clarity Clear (Clear) 11/10/19 13:50 Urine pH 5.5 (5-8) 11/10/19 13:50 Ur Specific [place] 1.015 (1.005-1.025) 11/10/19 13:50 Urine Protein Negative mg/dL (Negative) 11/10/19 13:50 Urine Ketones Negative mg/dL (Negative) 11/10/19 13:50 Urine Blood Negative (Negative) 11/10/19 13:50 Urine Nitrite Negative (Negative) 11/10/19 13:50 Urine Bilirubin Negative (Negative) 11/10/19 13:50 Urine Urobilinogen 0.2 EU/dL (Up TO 0.2) 11/10/19 13:50 Ur Leukocyte Esterase Moderate (Negative) H 11/10/19 13:50 Urine RBC 0-2 HPF (0-2) 11/10/19 13:50 Urine WBC 20-50 HPF (0-5) H 11/10/19 13:50 Ur Epithelial Cells Moderate HPF (Negative) 11/10/19 13:50 Urine Crystals Negative HPF (Negative) 11/10/19 13:50 Urine Bacteria Moderate HPF (Negative) 11/10/19 13:50 Urine Casts Negative LPF (Negative) 11/10/19 13:50 Urine Mucus Negative (Negative) 11/10/19 13:50 Ur Culture Indicated? Yes 11/10/19 13:50 Urine Glucose Negative mg/dL (Negative) 11/10/19 13:50 Patient ABO/Rh A Positive 11/10/19 14:22 Antibody Screen Negative 11/10/19 14:22 Crossmatch See Detail 11/10/19 14:22
[2019-11-13] MEDS: Normal Saline Flush 10 ML SYR IVP (12:49)
--- NOTE | 2019-11-13 13:46 | W.PM.PROGNOT ---
Date of Service Date of service: 11/13/19 Time of Service: 13:47 Assessment and Plan Assessment and plan (1) Gastrointestinal bleeding: Status: Chronic Assessment and plan: Patient is still stooling melanotic stools. Hemoglobin is stable at 8.1 g. Qualifiers: GI bleed type/associated pathology: melena Qualified Code(s): K92.1 - Melena (2) Diverticulitis: Status: Acute Assessment and plan: Not tolerating her diet. Increased abdominal pain and now w/ melena. She is afebrile but her leukocytosis has not resolved and her pain has increased. I will continue the Zosyn for now as it iis too soon to tell whether or not she is failing this antibiotics. I will repeat her CBC and CRP tomorrow. I am going to decrease her to clear liquids. (3) Anemia due to GI blood loss: Status: Acute Assessment and plan: Patient currently being treated with venofer in order to try to avoid further blood transfusions. Patient's presumed peptic ulcer disease being treated with Carafate and Protonix. I will add Cytotec. [facility] do not have any beds available and cannot accept her in transfer. I spoke with Dr. Gomes who is willing to attempt EGD and made her n.p.o. this morning however after anesthesia spoke with the patient and her daughter they decided against having the EGD done.. (4) Hypertension: Status: Chronic Assessment and plan: Persistently elevated blood pressures. She is on Lasix and metoprolol. I thought I did restart her amlodipine yesterday but this got neglected. I will restart her amlodipine beginning today. (5) Paroxysmal atrial fibrillation: Status: Chronic Assessment and plan: Continue rate control with beta-blockers. Clinically she seems to be in a regular rhythm. I have stopped her apixaban in light of her melena (6) Chronic diastolic CHF (congestive heart failure): Status: Chronic Assessment and plan: Clinically she seems to have some CHF as evidenced by bilateral pleural effusions bibasilar rales. continue twice daily lasix (7) COPD (chronic obstructive pulmonary disease): Status: Chronic Assessment and plan: Continue nebulizers and oxygen at her home flow rate of 3 L/min per nasal cannula. She does have some diffuse expiratory wheezes. This may be some volume overload. If this does not respond to IV Lasix then she may need some corticosteroids to treat her COPD. (8) Diabetes mellitus: Status: Chronic (9) Renal mass: Status: Acute Assessment and plan: 2.3 cm., hypoechoic, avascular exophytic lesion on the right kidney. This will need further follow-up with urology. I will consult with Dr. Fraser Subjective Subjective Interval history since last seen: Patient denies any nausea or vomiting. Initially she was n.p.o. for possible EGD today. Dr. Gomes spoke with the patient and she was agreeable to having it done here. However when anesthesia spoke with the patient and the patient's daughter they declined to have the procedure done due to concerns for possible complications. Patient still passing melanotic stools. No bright red blood per rectum. No abdominal pain. For lunch her diet was advanced and she had some macaroni and cheese which she tolerated well without any abdominal pain or nausea. Hemoglobin has remained stable at 8.1 g. She currently on Carafate and Protonix. I have ordered another dose of venofer to be given today to help build up her blood count. She still on antibiotics for her diverticulitis including Zosyn. She remains afebrile. Her renal function continues to improve with a BUN of 46 creatinine 2.0. White count is down to 11,300. She did have a low-grade fever last night of 38.4 but remains afebrile today. She continues to receive diuretics for her diastolic heart failure. Her blood pressure is elevated today. Although I indicated my note yesterday I was going to restart amlodipine and that got missed. She continues to receive metoprolol as well as Lasix and I have re-added her Norvasc today. Exam Narrative Exam Narrative: Elderly obese female who is alert and oriented person place time circumstance. She was sitting up at the bedside while nursing was attempting to restart her IV. They were initially unsuccessful. I made an attempt using [id number] ultrasound identified the left basilic vein and initially was able to cannulate it and after initial flash of blood lost flow. I removed the catheter held pressure and then reexamined the vessel for any thrombosis none was seen. Mikayla the carpenter labor supervisor for medical/surgical floor will attempt to place a midline. Lungs are clear anteriorly posterior she has bibasilar rales. Heart is regular Abdomen is obese soft and nontender with normal active bowel sounds no guarding no rebound tenderness. Objective Objective Clinical Data: Abnormal lab results 11/12/19 11/13/19 11/13/19 Range/Units 15:33 06:45 06:45 WBC 11.35 H (4.4-10.8) k/cumm RBC 3.15 L (4.00-5.20) m/cumm Hgb 8.0 L 8.1 L (12.0-15.5) g/dL Hct 26.5 L 28.4 L (36.0-46.0) % MCH 25.7 L (27.0-33.0) pg MCHC 28.5 L (32.0-36.0) g/dL RDW 17.5 H (11.7-14.6) % Absolute Neutrophils 8.52 H (1.2-6.7) k/cumm Absolute Monocytes 0.73 H (0.11-0.7) k/cumm Carbon Dioxide 39.9 H (21.0-32.0) mmol/L Anion Gap 2.1 L (3-11) mmol/L BUN 46 H (7-18) mg/dL Creatinine 2.03 H (0.55-1.02) mg/dL Glucose 225 H (74-106) mg/dL Vital Signs Temperature 36.6 C 11/13/19 12:09 Temperature Source Tympanic 11/13/19 12:09 Pulse 88 11/13/19 12:09 Pulse Rhythm Regular 11/13/19 07:55 Pulse 73 11/10/19 15:10 Respiratory Rate 18 11/13/19 12:09 Respiratory Effort 11/13/19 07:55 Respiratory Depth Normal 11/13/19 07:55 Respiratory Pattern Normal 11/13/19 07:55 Blood Pressure 170/66 H 11/13/19 12:09 Blood Pressure Mean 66 11/10/19 15:01 Blood Pressure Position Supine 11/10/19 10:24 Pulse Oximetry 96 11/13/19 12:09 Oxygen Delivery Method Nasal Cannula 11/13/19 12:09 Oxygen Flow Rate 3 11/13/19 12:09 Pain Level 0 11/13/19 12:09 Comment 11/12/19 07:24 Intake & Output 11/12/19 11/13/19 11/13/19 23:59 11:59 23:59 Intake Total 1040 / 2230 280 / 280 Output Total 400 / 1700 Balance 640 / 530 280 / 280 Weight 82.5 kg Intake: IV 110 / 210 280 / 280 Oral / 2019 Output: Urine 400 / 1700 Other: Urine Color Yellow Yellow Yellow Urine Appearance Clear Clear Clear Urine Odor Normal Normal Comment mixed with stool Stool Occult Blood Positive Positive Stool Size Moderate Small Stool Characteristics Liquid Soft Brown Formed Brown Voiding Methods Bedside Commode Toilet Bedside Commode Laboratory Results WBC 11.35 k/cumm (4.4-10.8) H 11/13/19 06:45 RBC 3.15 m/cumm (4.00-5.20) L 11/13/19 06:45 Hgb 8.1 g/dL (12.0-15.5) L 11/13/19 06:45 Hct 28.4 % (36.0-46.0) L 11/13/19 06:45 MCV 90.2 fL (80-95) 11/13/19 06:45 MCH 25.7 pg (27.0-33.0) L 11/13/19 06:45 MCHC 28.5 g/dL (32.0-36.0) L 11/13/19 06:45 RDW 17.5 % (11.7-14.6) H 11/13/19 06:45 Plt Count 302 x1000/uL (130-400) 11/13/19 06:45 MPV 9.9 fL (8.0-11.0) 11/13/19 06:45 Immature Gran % 1.2 % 11/13/19 06:45 Neutrophils % 75.1 11/13/19 06:45 Lymphocytes % 14.2 11/13/19 06:45 Monocytes % 6.4 11/13/19 06:45 Eosinophils % 2.5 11/13/19 06:45 Basophils % 0.6 11/13/19 06:45 Absolute Neutrophils 8.52 k/cumm (1.2-6.7) H 11/13/19 06:45 Absolute Lymphocytes 1.61 k/cumm (1.2-3.4) 11/13/19 06:45 Absolute Monocytes 0.73 k/cumm (0.11-0.7) H 11/13/19 06:45 Absolute Eosinophils 0.28 k/cumm (0.0-0.7) 11/13/19 06:45 Absolute Basophils 0.07 k/cumm (0.0-0.2) 11/13/19 06:45 Differential Comment Rbc morph reviewed 11/13/19 06:45 RBC Morphology See below 11/13/19 06:45 Polychromasia Present 11/13/19 06:45 Hypochromasia 2+ 11/13/19 06:45 Anisocytosis 2+ 11/13/19 06:45 Retic Count 3.5 % (0.5-2.4) H 11/11/19 06:18 Sodium 143 mmol/L (136-145) 11/13/19 06:45 Potassium 4.4 mmol/L (3.5-5.1) 11/13/19 06:45 Chloride 101 mmol/L (98-107) 11/13/19 06:45 Carbon Dioxide 39.9 mmol/L (21.0-32.0) H 11/13/19 06:45 Anion Gap 2.1 mmol/L (3-11) L 11/13/19 06:45 BUN 46 mg/dL (7-18) H 11/13/19 06:45 Creatinine 2.03 mg/dL (0.55-1.02) H 11/13/19 06:45 Estimated GFR/1.73 m2 23.75 (mL/min/1.73m2) 11/13/19 06:45 Glucose 225 mg/dL (74-106) H 11/13/19 06:45 Hemoglobin A1c 7.9 % (3.8-5.6) H 11/11/19 06:18 Calcium 9.3 mg/dL (8.5-10.1) 11/13/19 06:45 Iron 28 ug/dL (50-170) L 11/10/19 12:00 TIBC 316 ug/dL (250-450) 11/10/19 12:00 Transferrin % Sat 9 % (15-50) L 11/10/19 12:00 Ferritin 60 ng/mL (8-252) 11/11/19 06:18 Total Bilirubin 0.3 mg/dL (0.2-1.0) 11/11/19 06:18 AST 20 U/L (15-37) 11/11/19 06:18 ALT 22 U/L (14-59) 11/11/19 06:18 Alkaline Phosphatase 88 U/L (46-116) 11/11/19 06:18 C-Reactive Protein 15.65 mg/dL (0.0-0.3) H 11/12/19 06:10 NT-Pro-B Natriuret Pep 1574 pg/mL (<300) H 11/11/19 06:18 Total Protein 7.0 g/dL (6.4-8.2) 11/11/19 06:18 Albumin 3.1 g/dL (3.4-5.0) L 11/11/19 06:18 Lipase 111 U/L (73-393) 11/10/19 12:00 Vitamin B12 564 pg/mL (193-986) 11/11/19 06:18 TSH 2.14 uIU/mL (0.36-3.74) 11/10/19 12:00 Urine Color Yellow (Yellow) 11/10/19 13:50 Urine Clarity Clear (Clear) 11/10/19 13:50 Urine pH 5.5 (5-8) 11/10/19 13:50 Ur Specific [place] 1.015 (1.005-1.025) 11/10/19 13:50 Urine Protein Negative mg/dL (Negative) 11/10/19 13:50 Urine Ketones Negative mg/dL (Negative) 11/10/19 13:50 Urine Blood Negative (Negative) 11/10/19 13:50 Urine Nitrite Negative (Negative) 11/10/19 13:50 Urine Bilirubin Negative (Negative) 11/10/19 13:50 Urine Urobilinogen 0.2 EU/dL (Up TO 0.2) 11/10/19 13:50 Ur Leukocyte Esterase Moderate (Negative) H 11/10/19 13:50 Urine RBC 0-2 HPF (0-2) 11/10/19 13:50 Urine WBC 20-50 HPF (0-5) H 11/10/19 13:50 Ur Epithelial Cells Moderate HPF (Negative) 11/10/19 13:50 Urine Crystals Negative HPF (Negative) 11/10/19 13:50 Urine Bacteria Moderate HPF (Negative) 11/10/19 13:50 Urine Casts Negative LPF (Negative) 11/10/19 13:50 Urine Mucus Negative (Negative) 11/10/19 13:50 Ur Culture Indicated? Yes 11/10/19 13:50 Urine Glucose Negative mg/dL (Negative) 11/10/19 13:50 Patient ABO/Rh A Positive 11/10/19 14:22 Antibody Screen Negative 11/10/19 14:22 Crossmatch See Detail 11/10/19 14:22
[2019-11-13] MEDS: amLODIPine 5 MG TAB PO (14:32)
--- NOTE | 2019-11-13 15:26 | PDOC.CMPRO ---
- If Service Date Differs Date of service: 11/13/19 Time of Service: 15:26 Care Management Progress Note S/O: Karina was sitting up on the side of the bed when CM met with her. She stated that she is feeling much better today. Her daughter had requested that a referral be made to [facility] for possible transfer and EGD at that facility. Dr. Gomes offered to perform the procedure at [facility] but Karina's daughter declined. A new midline was placed this afternoon for venous access. A: Karina is a 79 year old woman admitted to [facility] on 11/10/19 with diverticulitis and DARION. P:Karina will likely be discharged home with no new services. She will follow up with her PCP and discharge plan of care. Karina will resume attending adult day care. CM will continue to support Karina, her family and her discharge planning needs.
[2019-11-13] MEDS: Acetaminophen 325 MG TAB 650 MG PO (16:15)
[2019-11-13] MEDS: Melatonin 3 MG TAB PO (20:15)
[2019-11-13] MEDS: Atorvastatin 40 MG TAB PO (20:15)
[2019-11-13] MEDS: Insulin Glargine 300 UNITS/3 ML PEN 10 UNITS SC (20:18)
[2019-11-14] VITALS (11 sets, daily range): BP systolic 134–172; BP diastolic 62–69; PULSE 71–96; RESP 2–20; TEMP 36.5–37.4; O2SAT 92–99
[2019-11-14] MEDS: Levothyroxine 75 MCG TAB PO (06:26)
[2019-11-14] MEDS: Albuterol/Ipratropium 3 ML UPD VIAL UPD ×4 (06:26→23:41)
[2019-11-14 07:12] LABS: Abs Immature Grans 0.09 k/cumm (0.0-0.09); Absolute Basophil Count 0.07 k/cumm (0.0-0.2); Absolute Eosinophil Count 0.35 k/cumm (0.0-0.7); Absolute Lymphocyte Count 1.52 k/cumm (1.2-3.4); Absolute Monocyte Count 0.71 k/cumm (0.11-0.7); Absolute Neutrophil Count 9.43 k/cumm (1.2-6.7); Basophils % 0.6; Eosinophils % 2.9; HCT 28.3 % (36.0-46.0); HGB 8.1 g/dL (12.0-15.5); Immature Grans % 0.7 %; Lymphocytes % 12.5; Mean Corp. HGB Concentration 28.6 g/dL (32.0-36.0); Mean Corpuscular Hemoglobin 26.1 pg (27.0-33.0); Mean Corpuscular Volume 91.3 fL (80-95); Mean Platelet Volume 9.9 fL (8.0-11.0); Monocytes % 5.8; Neutrophils % 77.5; Platelet Count 322 x1000/uL (130-400); RBC Distribution Width 17.6 % (11.7-14.6); White Blood Cell Count 12.17 k/cumm (4.4-10.8)
[2019-11-14 07:29] LABS: Anion Gap 2.3 mmol/L (3-11); BUN 37 mg/dL (7-18); C-Reactive Protein 11.84 mg/dL (0.0-0.3); CO2 38.7 mmol/L (21.0-32.0); CREATININE 1.87 mg/dL (0.55-1.02); Calcium 9.1 mg/dL (8.5-10.1); Chloride 102 mmol/L (98-107); Estimated GFR 26.11 (mL/min/1.73m2); Glucose 206 mg/dL (74-106); Potassium 4.4 mmol/L (3.5-5.1); Sodium 143 mmol/L (136-145)
[2019-11-14] MEDS: Budesonide/Formoterol 160/4.5 6 GM 60 PUFF INH IH ×2 (08:03→19:36)
[2019-11-14] MEDS: Metoprolol CR 25 MG TABCR PO (08:17)
[2019-11-14] MEDS: Insulin Aspart 300 UNITS/3 ML PEN SC ×5 (09:10→17:08)
[2019-11-14] MEDS: amLODIPine 5 MG TAB PO (09:22)
[2019-11-14] MEDS: PIPERACILLIN/TAZO 3.375 GM in Normal Saline 50 ML IVPB (09:22)
--- NOTE | 2019-11-14 10:24 | W.PM.PROGNOT ---
Date of Service Date of service: 11/14/19 Time of Service: 10:25 Assessment and Plan Assessment and plan (1) Chronic iron deficiency anemia: Status: Acute Assessment and plan: I still don't think it is clear as to what is causing her anemia. If it is in part b/c of poor eating/appeite, and chronic infection from the diverituclitis and CKD or if she is having a GI bleed. SHe received 2 units hgb when She was admitted. her hgn was 7.2 than. She has stayed at 8.0 throughout her whole hosp stay. her hgb is normally around 10. But it has stayed stable at 8.0 since she was transfused. She is not a good candidate for anesthesia. Clinically she is asymp adn hgb is stable. I would cont her on PPI/carafate. Will check iron levels today. She is IVHL and is tolerating po's. I don't think she should be placed back on blood thinners. certainly not ASA. I did d/w w/ anesthesia and the daughter yest about doing in EGD (daughter wanted it done). But than in conversation w/ anesthesia and her other siblings- they decided to hold off on the EGD. I don't think the benefits outway the risks and would continue w/ medical management alone based on her current status. If she starts to deteriorate, than re- consider . iron studies are pd. if still only low side- would give further IV venefer instead of po Fe. retic count was high- so she is still able to respond consider Epogen will follow peripherally. (2) Diverticulitis: Status: Acute Assessment and plan: pt is tolerating po's. miimal pain and feels better. less pain and bloating. stools are solid, no diarrhea, frequency or urgency. no gross blood. WBC count has been stable at 12 for last 3 days CRP is bouncing around- but she has other reason to have high CRP other than just the diverticulits. consider switching to po augmentin/flagyl Subjective Subjective Interval history since last seen: pt denies any pain- but pt is poor historian. Rn states she did eat well last night w/ no N/V. She did have a lg BM today. If was black/brown and heme+. I don't know if this is coming from upper GI source or if local irritation. black does seem to be decreasing. IV is hep locked. She is on po carafate and BID protonix po. she is on IV pipprracillin. hgb stable. WBC does not seem to be going down. Exam Resp Effort & Inspection: normal respiratory effort and able to speak in complete sentences Other: CTA b/l. she is on 3L of home O2 at baseline GI Palpation: soft, nontender and No ascites Skin Other: no breakdown Objective Objective Clinical Data: Abnormal lab results 11/14/19 11/14/19 Range/Units 06:20 06:20 WBC 12.17 H (4.4-10.8) k/cumm RBC 3.10 L (4.00-5.20) m/cumm Hgb 8.1 L (12.0-15.5) g/dL Hct 28.3 L (36.0-46.0) % MCH 26.1 L (27.0-33.0) pg MCHC 28.6 L (32.0-36.0) g/dL RDW 17.6 H (11.7-14.6) % Absolute Neutrophils 9.43 H (1.2-6.7) k/cumm Absolute Monocytes 0.71 H (0.11-0.7) k/cumm Carbon Dioxide 38.7 H (21.0-32.0) mmol/L Anion Gap 2.3 L (3-11) mmol/L BUN 37 H D (7-18) mg/dL Creatinine 1.87 H (0.55-1.02) mg/dL Glucose 206 H (74-106) mg/dL C-Reactive Protein 11.84 H (0.0-0.3) mg/dL Vital Signs Temperature 36.5 C 11/14/19 08:10 Temperature Source Tympanic 11/14/19 08:10 Pulse 93 H 11/14/19 08:10 Pulse Rhythm Regular 11/14/19 08:20 Pulse 73 11/10/19 15:10 Respiratory Rate 18 11/14/19 08:10 Respiratory Effort 11/14/19 08:20 Respiratory Depth Normal 11/14/19 08:20 Respiratory Pattern Normal 11/14/19 08:20 Blood Pressure 170/63 H 11/14/19 08:10 Blood Pressure Mean 66 11/10/19 15:01 Blood Pressure Position Supine 11/10/19 10:24 Pulse Oximetry 93 L 11/14/19 08:49 Oxygen Delivery Method Nasal Cannula 11/14/19 08:49 Oxygen Flow Rate 3 11/14/19 08:49 Pain Level 10 11/13/19 15:02 Comment 11/12/19 07:24 Intake & Output 11/13/19 11/13/19 11/14/19 11:59 23:59 11:59 Intake Total 280 / 570 290 / 570 50 / 50 Output Total 975 / 975 300 / 300 Balance 280 / -405 -685 / -405 -250 / -250 Weight 82.5 kg 81.5 kg Intake: IV 280 / 330 50 / 330 50 / 50 Oral 240 / 240 Output: Urine 975 / 975 300 / 300 Other: Urine Color Yellow Pale Yellow Yellow Urine Appearance Clear Clear Clear Urine Odor Normal Normal Normal Comment mixed with stool Stool Occult Blood Positive Negative Positive Stool Size Small Small Large Stool Characteristics Soft Soft Soft Formed Brown Brown Black Voiding Methods Toilet Bedside Commode Bedside Commode Laboratory Results WBC 12.17 k/cumm (4.4-10.8) H 11/14/19 06:20 RBC 3.10 m/cumm (4.00-5.20) L 11/14/19 06:20 Hgb 8.1 g/dL (12.0-15.5) L 11/14/19 06:20 Hct 28.3 % (36.0-46.0) L 11/14/19 06:20 MCV 91.3 fL (80-95) 11/14/19 06:20 MCH 26.1 pg (27.0-33.0) L 11/14/19 06:20 MCHC 28.6 g/dL (32.0-36.0) L 11/14/19 06:20 RDW 17.6 % (11.7-14.6) H 11/14/19 06:20 Plt Count 322 x1000/uL (130-400) 11/14/19 06:20 MPV 9.9 fL (8.0-11.0) 11/14/19 06:20 Immature Gran % 0.7 % 11/14/19 06:20 Neutrophils % 77.5 11/14/19 06:20 Lymphocytes % 12.5 11/14/19 06:20 Monocytes % 5.8 11/14/19 06:20 Eosinophils % 2.9 11/14/19 06:20 Basophils % 0.6 11/14/19 06:20 Absolute Neutrophils 9.43 k/cumm (1.2-6.7) H 11/14/19 06:20 Absolute Lymphocytes 1.52 k/cumm (1.2-3.4) 11/14/19 06:20 Absolute Monocytes 0.71 k/cumm (0.11-0.7) H 11/14/19 06:20 Absolute Eosinophils 0.35 k/cumm (0.0-0.7) 11/14/19 06:20 Absolute Basophils 0.07 k/cumm (0.0-0.2) 11/14/19 06:20 Differential Comment Rbc morph reviewed 11/13/19 06:45 RBC Morphology See below 11/13/19 06:45 Polychromasia Present 11/13/19 06:45 Hypochromasia 2+ 11/13/19 06:45 Anisocytosis 2+ 11/13/19 06:45 Retic Count 3.5 % (0.5-2.4) H 11/11/19 06:18 Sodium 143 mmol/L (136-145) 11/14/19 06:20 Potassium 4.4 mmol/L (3.5-5.1) 11/14/19 06:20 Chloride 102 mmol/L (98-107) 11/14/19 06:20 Carbon Dioxide 38.7 mmol/L (21.0-32.0) H 11/14/19 06:20 Anion Gap 2.3 mmol/L (3-11) L 11/14/19 06:20 BUN 37 mg/dL (7-18) H D 11/14/19 06:20 Creatinine 1.87 mg/dL (0.55-1.02) H 11/14/19 06:20 Estimated GFR/1.73 m2 26.11 (mL/min/1.73m2) 11/14/19 06:20 Glucose 206 mg/dL (74-106) H 11/14/19 06:20 Hemoglobin A1c 7.9 % (3.8-5.6) H 11/11/19 06:18 Calcium 9.1 mg/dL (8.5-10.1) 11/14/19 06:20 Iron 28 ug/dL (50-170) L 11/10/19 12:00 TIBC 316 ug/dL (250-450) 11/10/19 12:00 Transferrin % Sat 9 % (15-50) L 11/10/19 12:00 Ferritin 60 ng/mL (8-252) 11/11/19 06:18 Total Bilirubin 0.3 mg/dL (0.2-1.0) 11/11/19 06:18 AST 20 U/L (15-37) 11/11/19 06:18 ALT 22 U/L (14-59) 11/11/19 06:18 Alkaline Phosphatase 88 U/L (46-116) 11/11/19 06:18 C-Reactive Protein 11.84 mg/dL (0.0-0.3) H 11/14/19 06:20 NT-Pro-B Natriuret Pep 1574 pg/mL (<300) H 11/11/19 06:18 Total Protein 7.0 g/dL (6.4-8.2) 11/11/19 06:18 Albumin 3.1 g/dL (3.4-5.0) L 11/11/19 06:18 Lipase 111 U/L (73-393) 11/10/19 12:00 Vitamin B12 564 pg/mL (193-986) 11/11/19 06:18 TSH 2.14 uIU/mL (0.36-3.74) 11/10/19 12:00 Urine Color Yellow (Yellow) 11/10/19 13:50 Urine Clarity Clear (Clear) 11/10/19 13:50 Urine pH 5.5 (5-8) 11/10/19 13:50 Ur Specific [place] 1.015 (1.005-1.025) 11/10/19 13:50 Urine Protein Negative mg/dL (Negative) 11/10/19 13:50 Urine Ketones Negative mg/dL (Negative) 11/10/19 13:50 Urine Blood Negative (Negative) 11/10/19 13:50 Urine Nitrite Negative (Negative) 11/10/19 13:50 Urine Bilirubin Negative (Negative) 11/10/19 13:50 Urine Urobilinogen 0.2 EU/dL (Up TO 0.2) 11/10/19 13:50 Ur Leukocyte Esterase Moderate (Negative) H 11/10/19 13:50 Urine RBC 0-2 HPF (0-2) 11/10/19 13:50 Urine WBC 20-50 HPF (0-5) H 11/10/19 13:50 Ur Epithelial Cells Moderate HPF (Negative) 11/10/19 13:50 Urine Crystals Negative HPF (Negative) 11/10/19 13:50 Urine Bacteria Moderate HPF (Negative) 11/10/19 13:50 Urine Casts Negative LPF (Negative) 11/10/19 13:50 Urine Mucus Negative (Negative) 11/10/19 13:50 Ur Culture Indicated? Yes 11/10/19 13:50 Urine Glucose Negative mg/dL (Negative) 11/10/19 13:50 Stool Calprotectin Cancelled 11/10/19 18:15 Patient ABO/Rh A Positive 11/10/19 14:22 Antibody Screen Negative 11/10/19 14:22 Crossmatch See Detail 11/10/19 14:22
[2019-11-14] MEDS: Isosorbide Dinitrate 10 MG TAB 30 MG PO ×2 (10:35→19:33)
[2019-11-14] MEDS: Pantoprazole 40 MG TABCR PO ×2 (10:35→19:36)
[2019-11-14] MEDS: Gabapentin 100 MG CAP 200 MG PO ×2 (10:35→19:34)
[2019-11-14] MEDS: Sucralfate 1 GM TAB PO ×3 (10:35→19:36)
[2019-11-14] MEDS: PARoxetine 20 MG TAB PO (10:35)
[2019-11-14] MEDS: Furosemide 40 MG TAB PO ×2 (10:36→15:44)
--- NOTE | 2019-11-14 12:24 | W.NUTCONSULT ---
Date of service: 11/14/19 Time of Service: 12:24
--- NOTE | 2019-11-14 12:25 | W.NUTRFU ---
Date of service: 11/14/19 Time of Service: 12:25 Nutritional Follow up NOTE: Karina is following soft diet and tolerating it well today and meeting nutrient and fluid needs at this time. She continues to receive glucerna BID and completing 100%. Time Spent in Nutritional Counseling and Treatment: 5 min spent face to face
[2019-11-14] MEDS: miSOPROStol 100 MCG TAB PO ×2 (12:50→15:45)
[2019-11-14] MEDS: metroNIDAZOLE 500 MG TAB PO (14:32)
[2019-11-14] MEDS: Ondansetron 4 MG/2 ML VIAL IVP (14:33)
[2019-11-14] MEDS: Normal Saline Flush 10 ML SYR IVP (14:33)
--- NOTE | 2019-11-14 15:25 | PGE_ITS ---
Date of Service Date of service: 11/14/19 Time of Service: 15:25 Assessment and Plan Assessment and plan (1) Gastrointestinal bleeding: Status: Chronic Assessment and plan: DC Cytotec. Continue with Carafate and Protonix as listed above. No further plans for endoscopy at this time. If patient is tolerating her diet she can be discharged home. Patient received 1 unit of p acked red blood cells on November 10, 2019 and is remained hemodynamically stable with stable blood counts since then. Her hemoglobin is currently 8.1 g and is unchanged. I am not putting her on any oral iron in light of her nausea and vomiting furthermore she has had adequate treatment with IV iron sucrose. She had 3 days worth of this. Upon discharge she should have a follow-up hemogram in 1 to 2 weeks Qualifiers: GI bleed type/associated pathology: melena Qualified Code(s): K92.1 - Melena (2) Chronic iron deficiency anemia: Status: Acute Assessment and plan: As above (3) GERD (gastroesophageal reflux disease): Status: Chronic Assessment and plan: As above Qualifiers: Esophagitis presence: esophagitis presence not specified Qualified Code(s): K21.9 - Gastro-esophageal reflux disease without esophagitis (4) Diverticulitis: Status: Acute Assessment and plan: Continue Augmentin for another week. Discontinue metronidazole (5) History of pulmonary embolism: Status: Chronic Assessment and plan: In light of her GI bleeding patient will remain off antiplatelet and anticoagulants. Unfortunately his carries a higher risk for s troke and embolism but in light of her recurrent bleeding requiring transfusions and without a source of bleeding this is a risk the patient will have to accept (6) Hypertension: Status: Chronic Assessment and plan: Blood pressure remains labile. At times her blood pressure seems to be well controlled at 134/68 and other times it is been elevated. At 8 AM she was 170/63 and this afternoon is been 155/68. She is currently on Toprol-XL 25 mg daily and amlodipine 5 mg daily. She also takes isosorbide mononitrate and she is on Lasix. Her pulse rate is in the 80s therefore I think she could benefit from increasing her Toprol XL. I will increase this to 50 mg daily. Qualifiers: Hypertension type: essential hypertension Qualified Code(s): I10 - Essential (primary) hypertension (7) Acute kidney injury superimposed on chronic kidney disease: Status: Acute Assessment and plan: This appears to be resolving. Her admission BUN was elevated 67 and creatinine was 3.0. She is now down to a BUN of 37 and creatinine 1.87 in spite of resumption of her furosemide (8) Discharge planning issues: Status: Acute Assessment and plan: Patient be discharged home tomorrow to the care of her family. According to case management she requires no new services. She will resume attending adult daycare at [facility] Subjective Subjective Interval history since last seen: Still has a mild leukocytosis. Patient had episode of vomiting after lunch. Initially she denied any abdominal pain. However right after I finished examine her she sat up and had some sharp epigastric pains. Still passing melanotic stools but her hemoglobin hematocrit are stable with a hemoglobin 8.1 g. Her abdominal pains and nausea and vomting may be secondary to either her cytotec or her metronidazole. I discontinued both and will treat her diverticulitis w/ just the Augmentin. Her presumed PUD will continue to be treated w/ Protonix 40 mg BID and carafate 1 gm QID. If she tolerated her dinner tonight and her breakfast tomorrow then I think she can complete her antibiotics at home. At present there is no plans for endoscopy to look for her source of bleeding. Exam Narrative Exam Narrative: Elderly obese female who is alert and oriented person place time circumstance. When I examined her after lunch she was lying down in bed. She sat up for me for examination and shortly thereafter was clutching her abdomen due to severe crampy epigastric abdominal pain. This past shortly. Lungs are clear to auscultation. Heart is regular rate and rhythm. Abdomen is obese soft nondistended with some mild epigastric tenderness but no guarding or rebound tenderness. Lower extremities without peripheral cyanosis or edema. Objective Objective Clinical Data: Abnormal lab results 11/14/19 11/14/19 Range/Units 06:20 06:20 WBC 12.17 H (4.4-10.8) k/cumm RBC 3.10 L (4.00-5.20) m/cumm Hgb 8.1 L (12.0-15.5) g/dL Hct 28.3 L (36.0-46.0) % MCH 26.1 L (27.0-33.0) pg MCHC 28.6 L (32.0-36.0) g/dL RDW 17.6 H (11.7-14.6) % Absolute Neutrophils 9.43 H (1.2-6.7) k/cumm Absolute Monocytes 0.71 H (0.11-0.7) k/cumm Carbon Dioxide 38.7 H (21.0-32.0) mmol/L Anion Gap 2.3 L (3-11) mmol/L BUN 37 H D (7-18) mg/dL Creatinine 1.87 H (0.55-1.02) mg/dL Glucose 206 H (74-106) mg/dL C-Reactive Protein 11.84 H (0.0-0.3) mg/dL Vital Signs Temperature 36.6 C 11/14/19 12:00 Temperature Source Tympanic 11/14/19 12:00 Pulse 71 11/14/19 12:00 Pulse Rhythm Regular 11/14/19 08:20 Pulse 73 11/10/19 15:10 Respiratory Rate 20 11/14/19 12:00 Respiratory Effort 11/14/19 08:20 Respiratory Depth Normal 11/14/19 08:20 Respiratory Pattern Normal 11/14/19 08:20 Blood Pressure 134/68 11/14/19 12:00 Blood Pressure Mean 66 11/10/19 15:01 Blood Pressure Position Supine 11/10/19 10:24 Pulse Oximetry 94 L 11/14/19 12:00 Oxygen Delivery Method Nasal Cannula 11/14/19 12:00 Oxygen Flow Rate 3 11/14/19 12:00 Pain Level 0 11/14/19 12:00 Comment 11/12/19 07:24 Intake & Output 11/13/19 11/14/19 11/14/19 23:59 11:59 23:59 Intake Total 290 / 570 50 / 50 Output Total 975 / 975 300 / 300 Balance -685 / -405 -250 / -250 Weight 81.5 kg Intake: IV 50 / 330 50 / 50 Oral 240 / 240 Output: Urine 975 / 975 300 / 300 Other: Urine Color Pale Yellow Yellow Yellow Urine Appearance Clear Clear Clear Urine Odor Normal Normal Stool Occult Blood Negative Positive Stool Size Small Large Small Stool Characteristics Soft Soft Soft Brown Brown Black Black Voiding Methods Bedside Commode Bedside Commode Bedside Commode Laboratory Results WBC 12.17 k/cumm (4.4-10.8) H 11/14/19 06:20 RBC 3.10 m/cumm (4.00-5.20) L 11/14/19 06:20 Hgb 8.1 g/dL (12.0-15.5) L 11/14/19 06:20 Hct 28.3 % (36.0-46.0) L 11/14/19 06:20 MCV 91.3 fL (80-95) 11/14/19 06:20 MCH 26.1 pg (27.0-33.0) L 11/14/19 06:20 MCHC 28.6 g/dL (32.0-36.0) L 11/14/19 06:20 RDW 17.6 % (11.7-14.6) H 11/14/19 06:20 Plt Count 322 x1000/uL (130-400) 11/14/19 06:20 MPV 9.9 fL (8.0-11.0) 11/14/19 06:20 Immature Gran % 0.7 % 11/14/19 06:20 Neutrophils % 77.5 11/14/19 06:20 Lymphocytes % 12.5 11/14/19 06:20 Monocytes % 5.8 11/14/19 06:20 Eosinophils % 2.9 11/14/19 06:20 Basophils % 0.6 11/14/19 06:20 Absolute Neutrophils 9.43 k/cumm (1.2-6.7) H 11/14/19 06:20 Absolute Lymphocytes 1.52 k/cumm (1.2-3.4) 11/14/19 06:20 Absolute Monocytes 0.71 k/cumm (0.11-0.7) H 11/14/19 06:20 Absolute Eosinophils 0.35 k/cumm (0.0-0.7) 11/14/19 06:20 Absolute Basophils 0.07 k/cumm (0.0-0.2) 11/14/19 06:20 Differential Comment Rbc morph reviewed 11/13/19 06:45 RBC Morphology See below 11/13/19 06:45 Polychromasia Present 11/13/19 06:45 Hypochromasia 2+ 11/13/19 06:45 Anisocytosis 2+ 03/12/20 06:45 Retic Count 3.5 % (0.5-2.4) H 11/11/19 06:18 Sodium 143 mmol/L (136-145) 11/14/19 06:20 Potassium 4.4 mmol/L (3.5-5.1) 11/14/19 06:20 Chloride 102 mmol/L (98-107) 11/14/19 06:20 Carbon Dioxide 38.7 mmol/L (21.0-32.0) H 11/14/19 06:20 Anion Gap 2.3 mmol/L (3-11) L 11/14/19 06:20 BUN 37 mg/dL (7-18) H D 11/14/19 06:20 Creatinine 1.87 mg/dL (0.55-1.02) H 11/14/19 06:20 Estimated GFR/1.73 m2 26.11 (mL/min/1.73m2) 11/14/19 06:20 Glucose 206 mg/dL (74-106) H 11/14/19 06:20 Hemoglobin A1c 7.9 % (3.8-5.6) H 11/11/19 06:18 Calcium 9.1 mg/dL (8.5-10.1) 11/14/19 06:20 Iron 28 ug/dL (50-170) L 11/10/19 12:00 TIBC 316 ug/dL (250-450) 11/10/19 12:00 Transferrin % Sat 9 % (15-50) L 11/10/19 12:00 Ferritin 60 ng/mL (8-252) 11/11/19 06:18 Total Bilirubin 0.3 mg/dL (0.2-1.0) 11/11/19 06:18 AST 20 U/L (15-37) 11/11/19 06:18 ALT 22 U/L (14-59) 11/11/19 06:18 Alkaline Phosphatase 88 U/L (46-116) 11/11/19 06:18 C-Reactive Protein 11.84 mg/dL (0.0-0.3) H 11/14/19 06:20 NT-Pro-B Natriuret Pep 1574 pg/mL (<300) H 11/11/19 06:18 Total Protein 7.0 g/dL (6.4-8.2) 11/11/19 06:18 Albumin 3.1 g/dL (3.4-5.0) L 11/11/19 06:18 Lipase 111 U/L (73-393) 11/10/19 12:00 Vitamin B12 564 pg/mL (193-986) 11/11/19 06:18 TSH 2.14 uIU/mL (0.36-3.74) 11/10/19 12:00 Urine Color Yellow (Yellow) 11/10/19 13:50 Urine Clarity Clear (Clear) 11/10/19 13:50 Urine pH 5.5 (5-8) 11/10/19 13:50 Ur Specific [place] 1.015 (1.005-1.025) 11/10/19 13:50 Urine Protein Negative mg/dL (Negative) 11/10/19 13:50 Urine Ketones Negative mg/dL (Negative) 11/10/19 13:50 Urine Blood Negative (Negative) 11/10/19 13:50 Urine Nitrite Negative (Negative) 11/10/19 13:50 Urine Bilirubin Negative (Negative) 11/10/19 13:50 Urine Urobilinogen 0.2 EU/dL (Up TO 0.2) 11/10/19 13:50 Ur Leukocyte Esterase Moderate (Negative) H 11/10/19 13:50 Urine RBC 0-2 HPF (0-2) 11/10/19 13:50 Urine WBC 20-50 HPF (0-5) H 11/10/19 13:50 Ur Epithelial Cells Moderate HPF (Negative) 11/10/19 13:50 Urine Crystals Negative HPF (Negative) 11/10/19 13:50 Urine Bacteria Moderate HPF (Negative) 11/10/19 13:50 Urine Casts Negative LPF (Negative) 11/10/19 13:50 Urine Mucus Negative (Negative) 11/10/19 13:50 Ur Culture Indicated? Yes 11/10/19 13:50 Urine Glucose Negative mg/dL (Negative) 11/10/19 13:50 Stool Calprotectin Cancelled 11/10/19 18:15 Patient ABO/Rh A Positive 11/10/19 14:22 Antibody Screen Negative 11/10/19 14:22 Crossmatch See Detail 11/10/19 14:22
[2019-11-14] MEDS: Acetaminophen 325 MG TAB 650 MG PO (15:44)
--- NOTE | 2019-11-14 16:14 | CMPROGNOTE_ITS ---
- If Service Date Differs Date of service: 11/14/19 Time of Service: 16:14 Care Management Progress Note S/O: Karina was sitting up on the side of the bed when CM met with her. She stated that she is feeling much better today. She was smiling and more animated than she has been this admission. There was a plan to discharge her this afternoon, however after lunch Karina again experienced abdominal pain and vomited. She will remain in the hospital at least over night. Her daughter has been updated by CM and her questions were answered. A: Karina is a 79 year old woman admitted to [facility] on 11/10/19 with diverticulitis and DARION. P:Karina will likely be discharged home with no new services. She will follow up with her PCP and discharge plan of care. Karina will resume attending adult day care at [place]. CM will continue to support Karina, her family and her discharge planning needs.
[2019-11-14] MEDS: Atorvastatin 40 MG TAB PO (19:35)
[2019-11-14] MEDS: Amoxicillin 500/Clav. 125 TAB PO (19:35)
[2019-11-14] MEDS: Metoprolol 25 MG TAB PO (20:09)
[2019-11-14] MEDS: Insulin Glargine 300 UNITS/3 ML PEN 10 UNITS SC (21:53)
[2019-11-15] VITALS (8 sets, daily range): BP systolic 165–181; BP diastolic 51–70; PULSE 71–82; RESP 2–24; TEMP 36.4–37; O2SAT 90–99
[2019-11-15] MEDS: Levothyroxine 75 MCG TAB PO (06:05)
[2019-11-15] MEDS: Albuterol/Ipratropium 3 ML UPD VIAL UPD ×2 (06:05→11:29)
[2019-11-15 06:53] LABS: Abs Immature Grans 0.14 k/cumm (0.0-0.09); Absolute Eosinophil Count 0.42 k/cumm (0.0-0.7); Absolute Monocyte Count 0.76 k/cumm (0.11-0.7); Absolute Neutrophil Count 9.46 k/cumm (1.2-6.7); Basophils % 0.6; Eosinophils % 3.3; HCT 29.2 % (36.0-46.0); HGB 8.4 g/dL (12.0-15.5); Immature Grans % 1.1 %; Lymphocytes % 14.2; Mean Corp. HGB Concentration 28.8 g/dL (32.0-36.0); Mean Corpuscular Hemoglobin 26.3 pg (27.0-33.0); Mean Corpuscular Volume 91.3 fL (80-95); Mean Platelet Volume 9.7 fL (8.0-11.0); Neutrophils % 74.8; Platelet Count 332 x1000/uL (130-400); White Blood Cell Count 12.65 k/cumm (4.4-10.8)
[2019-11-15 06:57] LABS: Absolute Basophil Count 0.08 k/cumm (0.0-0.2)
[2019-11-15 07:07] LABS: Iron 48 ug/dL (50-170)
[2019-11-15 07:26] LABS: BUN 34 mg/dL (7-18); CREATININE 1.74 mg/dL (0.55-1.02); Chloride 98 mmol/L (98-107); Estimated GFR 28.37 (mL/min/1.73m2); Ferritin 636 ng/mL (8-252); Glucose 191 mg/dL (74-106); Potassium 4.4 mmol/L (3.5-5.1); Sodium 140 mmol/L (136-145)
[2019-11-15 07:36] LABS: C-Reactive Protein 7.67 mg/dL (0.0-0.3)
[2019-11-15] MEDS: Budesonide/Formoterol 160/4.5 6 GM 60 PUFF INH IH (08:16)
[2019-11-15] MEDS: Furosemide 40 MG TAB PO (08:28)
[2019-11-15] MEDS: Pantoprazole 40 MG TABCR PO (08:28)
[2019-11-15] MEDS: PARoxetine 20 MG TAB PO (08:28)
[2019-11-15] MEDS: amLODIPine 5 MG TAB PO (08:28)
[2019-11-15] MEDS: Amoxicillin 500/Clav. 125 TAB PO (08:28)
[2019-11-15] MEDS: Sucralfate 1 GM TAB PO ×2 (08:29→12:06)
[2019-11-15] MEDS: Gabapentin 100 MG CAP 200 MG PO (08:29)
[2019-11-15] MEDS: Insulin Aspart 300 UNITS/3 ML PEN SC ×4 (08:29→12:08)
[2019-11-15] MEDS: Isosorbide Dinitrate 10 MG TAB 30 MG PO (08:29)
[2019-11-15] MEDS: Metoprolol CR 25 MG TABCR 50 MG PO (08:29)
--- NOTE | 2019-11-15 08:29 | PDOC.CMPRO ---
- If Service Date Differs Date of service: 11/15/19 Time of Service: 08:29 Care Management Progress Note S/O: A: Karina is a 79 year old woman admitted to [facility] on 11/10/19 with diverticulitis and DARION. P:Karina will likely be discharged home with no new services. She will follow up with her PCP and discharge plan of care. Karina will resume attending adult day care at [place]. will continue to support Karina, her family and her discharge planning needs.
--- NOTE | 2019-11-15 14:09 | W.PM.DS.N ---
Date of service: 11/15/19 Time of Service: 14:09 DS: Diagnosis Discharge Diagnosis (1) Gastrointestinal bleeding: Status: Resolved Asessment and Plan: Family decided against EGD on this admission; No longer on anticoagulation or antiplatelets at the time of discharge. (2) Chronic iron deficiency anemia: Status: Acute (3) GERD (gastroesophageal reflux disease): Status: Chronic (4) Diverticulitis: Status: Acute (5) History of pulmonary embolism: Status: Chronic Asessment and Plan: No longer on anticoagulation at the time of discharge. (6) Hypertension: Status: Chronic (7) Acute kidney injury superimposed on chronic kidney disease: Status: Resolved (8) Acute blood loss anemia: Status: Acute (9) Right renal mass: Status: Acute Asessment and Plan: needs ultrasound follow up every 6 months (10) CAD (coronary artery disease): Status: Chronic (11) S/P arterial stent: Status: Chronic Discharge Plan Disposition Patient Disposition: HOME Condition: Stable Discharge Details Chief Complaint: Abd Prob Reason For Visit: DIVERTICULITIS, ACUTE CHRONIC KIDNEY DISEASE,GI BL Admit Date/Time: 11/10/19 14:17 Admit Provider: Antelmo Maki Attending Provider: Antelmo Maki Primary Care Provider: Kristal Quiñonez ED Provider: Lalitha Whitt [facility] Hospital Course: Ms Bean is a 79 year old female with PMHx of CAD s/p multiple stents, PAD, COPD, chronic hypoxic respiratory failure on home oxygen, h/o PE and paroxysmal Afib, on eliquis therapy at the time of presentation, as well as renal mass, who was admitted to [facility] medical surgical floor under the hospitalist service on 11/10/2019 for acute diverticulitis as well as upper GI bleeding and DARION on CKD. The patient's anticoagulation and antiplatelet therapy was held. She was treated with IV protonix and carafate. She required a transfusion of 1 unit of pRBCs on day of admission for Hgb of 7.2, but has been able to maintain her H/H since. She did receive 3 doses of venofer during her hospitalization. She was evaluated by general surgery for her diverticulitis and upper GI bleeding. She was treated with empiric ceftriaxone and flagyl for diverticulitis, transitioning to and tolerating augmentin prior to discharge. As far as the bleeding, the patient was not felt to be a candidate for an acute endoscopy at our facility initially. The patient had cytotec ordered in addition to carafate and protonix as she continued to have melanotic stools. [place] [facility] [place], but no beds were available at either. Eventually, the family decided against having the EGD done and transfer was no longer pursued. Diet was advanced, which the patient has now been able to tolerate, but her anticoagulation and antiplatelets remain on hold at the time of discharge and should not be resumed for at least 2-3 weeks post this acute event. We will defer the decision about possible resumption of antiplatelet tx/anticoagulation to PCP. She was evaluated by Dr Fraser for her right renal mass seen on CT imaging and reproduced on ultrasound. His recommendation was following this with renal ultrasound every 6 months. The patient does not appear to be in acute exacerbation of COPD or CHF at the time of discharge. Patient states she feels to be at her baseline. She is medically stable for discharge home today. Care for patient as well as completion of her discharge summary took 45 minutes on the day of discharge. Home Meds and New Rx's Prescriptions: New sucralfate 1 gram Tablet 1 g PO AC & HS Qty: 120 RF: 0 pantoprazole 40 mg Tablet,Delayed Release (Dr/Ec) 40 mg PO BID@07,1999 Qty: 60 RF: 0 amoxicillin-pot clavulanate 500-125 mg Tablet 1 tab PO BID Qty: 20 RF: 0 Continued isosorbide dinitrate 30 mg tablet 30 mg PO BID Qty: 60 RF: 5 gabapentin 100 mg capsule 200 mg PO BID RF: 0 melatonin 3 mg tablet 3 mg PO HS PRNRF: 0 trazodone 50 mg tablet 50 mg PO HS PRNRF: 0 (DME) Oxygen Tank See Rx Instructions .ROUTE .MEDSUPPLY Qty: 1 RF: 0 albuterol sulfate 90 mcg/actuation HFA aerosol inhaler 2 puff IH Q6H PRNRF: 0 buspirone 7.5 mg tablet 7.5 mg PO DAILY Qty: 90 RF: 0 (DME) pen needle, diabetic [BD Ultra-Fine Mini Pen Needle] 31 gauge x 3/16 needle See Rx Instructions .ROUTE .MEDSUPPLY Qty: 200 RF: 3 (DME) pen needle, diabetic [BD Ultra-Fine Mini Pen Needle] 31 gauge x 3/16 needle See Rx Instructions .ROUTE .MEDSUPPLY Qty: 300 RF: 3 (DME) Portable Oxygen System Qty: 1 RF: 0 Novolog U-100 Insulin aspart 100 unit/mL solution See Rx Instructions .ROUTE .COMPLEX PRN (Reason: E11.9) Qty: 25 RF: 3 fluticasone propion-salmeterol [Advair Diskus] 250-50 mcg/dose blister with device 1 inh IH BID RF: 0 levothyroxine 75 mcg capsule 75 mcg PO DAILY RF: 0 paroxetine HCl [Paxil] 20 mg tablet 20 mg PO DAILY RF: 0 atorvastatin 40 mg Tablet 40 mg PO HS RF: 0 amlodipine [Norvasc] 2.5 mg Tablet 2.5 mg PO DAILY RF: 0 cholecalciferol (vitamin D3) 1,000 unit Capsule 1,000 unit PO DAILY RF: 0 hydralazine 25 mg Tablet 25 mg PO TID RF: 0 ferrous sulfate 325 mg (65 mg iron) Tablet 325 mg PO DAILY RF: 0 metoprolol succinate 25 mg Tablet Extended Release 24 Hr 25 mg PO DAILY RF: 0 nitroglycerin [Nitrostat] 0.4 mg Tablet, Sublingual 0.4 mg SUBLINGUAL Q5M PRNRF: 0 dicyclomine 20 mg Tablet 20 mg PO DAILY PRNRF: 0 furosemide 40 mg Tablet 40 mg PO BID@0830,1600 Qty: 10 RF: 0 Albuterol-Ipatropium 0.5 mg 3 ml inhalation 4-6XD PRN (Reason: shortness of breath/wheezing) Qty: 60 RF: 0 pantoprazole 40 mg Tablet,Delayed Release (Dr/Ec) 40 mg PO BID@0730,2000 Qty: 60 RF: 0 acetaminophen [Tylenol] 325 mg Tablet 650 mg PO Q6H Qty: 0 RF: 0 Changed insulin glargine 100 unit/mL (3 mL) insulin pen 50 unit SC DAILY MDD 120 units Qty: 35 RF: 3 Discontinued sulfamethoxazole-trimethoprim [Bactrim DS] 800-160 mg tablet 1 tab PO BID Qty: 10 RF: 0 apixaban 2.5 mg tablet 2.5 mg PO DAILY RF: 0 clopidogrel 75 mg Tablet 75 mg PO DAILY RF: 0 Discharge Instructions Instructions: Gastrointestinal Bleeding (DC), Diverticulitis (DC) Additional Instructions: Finish your antibiotics as prescribed. Return to the hospital with any fever, bleeding, chest pain, or shortness of breath. Follow up with your PCP as below. Stand Alone Forms: Nursing Discharge Form Referrals: Lucio Fraser MD [ [facility] STAFF PHYSICIAN] - (renal mass) Francisca Vázquez MD [ [facility] STAFF PHYSICIAN] - 11/26/19 3:00 pm Lucy Gomes DO [OSTEOPATHIC DOCTOR] - (GI bleeding) Activity:: Activity as Tolerated Equipment/Supplies:: No Equipment Needed Diet:: Carb Counting Discharge Orders Discharge Orders: Discharge Order (Routine); Ordered 11/15/19 Ordered By: Dominique Choi DS: Summary Status at Discharge Functional status at discharge: independent ambulation Overall status at discharge: patient is back to baseline Mental Status: mental status grossly normal Speech and Movement: speech and movement normal Mood: congruent mood Affect: normal affect Exam Narrative Exam Narrative: General:Very pleasant elderly female, laying flat in bed without dyspnea/tachypnea, recognizes me, not in distress HEENT: EOMI, MMM Heart: RRR, no m/r/g Lungs: quiet exp. rhonchi B. Abdomen: soft, nontender, nondistended Extremities: no e/c/c bLE's Psych Mental Status: mental status grossly normal Speech and Movement: speech and movement normal Mood: congruent mood Affect: normal affect DS: Data Vitals/I&O Vitals and I&O: Vital Signs Temperature 37.0 C 11/15/19 08:33 Temperature Source Tympanic 11/15/19 08:33 Pulse 71 11/15/19 11:38 Pulse Rhythm Regular 11/15/19 05:12 Pulse 73 11/10/19 15:10 Respiratory Rate 24 11/15/19 11:38 Respiratory Effort 11/15/19 05:12 Respiratory Depth Normal 11/15/19 05:12 Respiratory Pattern Normal 11/15/19 05:12 Blood Pressure 165/64 H 11/15/19 08:33 Blood Pressure Mean 66 11/10/19 15:01 Blood Pressure Position Supine 11/10/19 10:24 Pulse Oximetry 99 11/15/19 11:38 Oxygen Delivery Method Nasal Cannula 11/15/19 11:29 Oxygen Flow Rate 2 11/15/19 11:29 Pain Level 0 11/15/19 03:12 Comment 11/12/19 07:24 Intake & Output 11/14/19 11/15/19 11/15/19 23:59 11:59 23:59 Intake Total 50 / 100 350 / 350 Output Total 600 / 600 Balance 50 / -200 -250 / -250 Intake: IV 50 / 100 Oral 350 / 350 Output: Urine 600 / 600 Other: Urine Color Yellow Pale Yellow Urine Appearance Clear Clear Stool Occult Blood Positive Stool Size Small Stool Characteristics Liquid Voiding Methods Bedside Commode Bedside Commode Data Completed and Pending Completed studies during hospitalization [Text1]: CT abdomen/pelvis w/o: 1. Colonic diverticulosis. Mild increased attenuation in the pericolonic fat around a short segment of the distal sigmoid colon suspicious for acute diverticulitis. Please correlate clinically. 2. Renal lesions. Several have the appearance of simple cysts. There are a few hyperdense exophytic lesions on the kidneys. These may reflect complex cysts. A nonemergent renal ultrasound may be considered for further evaluation. 3. Bilateral pleural effusions and basilar infiltrates which may represent atelectasis or pneumonia. 4. Findings were discussed with the emergency department on the date of the examination. US renal: 1. Bilateral renal cysts. 2. 2.3 cm., hypoechoic, avascular exophytic lesion on the right kidney. This may represent a complex cyst. Solid mass cannot be excluded. Follow-up is recommended. This may represent a CT scan or ultrasound in 6 months or an MRI examination of the kidneys. Labs on day of discharge: Labs from last 24 hours 11/15/19 11/15/19 11/15/19 06:20 06:20 06:20 WBC 12.65 H RBC 3.20 L Hgb 8.4 L Hct 29.2 L MCV 91.3 MCH 26.3 L MCHC 28.8 L RDW 18.0 H Plt Count 332 MPV 9.7 Immature Gran % 1.1 Neutrophils % 74.8 Lymphocytes % 14.2 Monocytes % 6.0 Eosinophils % 3.3 Basophils % 0.6 Absolute Neutrophils 9.46 H Absolute Lymphocytes 1.80 Absolute Monocytes 0.76 H Absolute Eosinophils 0.42 Absolute Basophils 0.08 Sodium 140 Potassium 4.4 Chloride 98 Carbon Dioxide 39.0 H Anion Gap 3.0 BUN 34 H Creatinine 1.74 H Estimated GFR/1.73 m2 28.37 Glucose 191 H Calcium 9.0 Iron 48 L Ferritin 636 H C-Reactive Protein 7.67 H Stool Calprotectin 11/14/19 17:45 WBC RBC Hgb Hct MCV MCH MCHC RDW Plt Count MPV Immature Gran % Neutrophils % Lymphocytes % Monocytes % Eosinophils % Basophils % Absolute Neutrophils Absolute Lymphocytes Absolute Monocytes Absolute Eosinophils Absolute Basophils Sodium Potassium Chloride Carbon Dioxide Anion Gap BUN Creatinine Estimated GFR/1.73 m2 Glucose Calcium Iron Ferritin C-Reactive Protein Stool Calprotectin Pending [facility] Medical History (Updated 11/15/19 @ 14:19 by Dominique Choi MD) Anemia (Chronic) CAD (coronary artery disease) (Chronic) Carotid stenosis (Chronic) s/p bilateral CEA Chronic diastolic CHF (congestive heart failure) (Chronic) Chronic iron deficiency anemia (Acute) Chronic low back pain (Chronic) CKD (chronic kidney disease) (Chronic) COPD (chronic obstructive pulmonary disease) (Chronic) Depression with anxiety (Chronic) Diabetes mellitus (Chronic) 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 mellitus (Chronic) Diverticulitis (Acute) Functional tremor (Chronic) GERD (gastroesophageal reflux disease) (Chronic) History of pulmonary embolism (Chronic) Hyperlipidemia (Chronic) Hypertension (Chronic) Hypothyroidism (Chronic) Iron deficiency (Chronic) Obesity (BMI 30.0-34.9) (Chronic) DANYELLE (obstructive sleep apnea) (Chronic) Paroxysmal atrial fibrillation (Chronic) Peripheral vascular disease (Chronic) Renal mass (Acute) Rheumatoid arthritis (Chronic) 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) TIA (transient ischemic attack) (Chronic) Vascular dementia (Acute) Surgical History H/O cardiac catheterization (Chronic) [address] History of left-sided carotid endarterectomy (Chronic) History of right-sided carotid endarterectomy (Chronic) S/P arterial stent (Chronic) leg x2 S/P arteriovenous (AV) fistula creation (Chronic) [facility] in [place] Family History Sister Cancer Diabetes Brother Cancer Diabetes Other Heart disease Social History Smoking/Tobacco Use Status: Former Tobacco Use Alcohol Intake: never Drug use: Never Substance use type: does not use Adopted: No Foster care: No Household members: children Housing: house Number of Children: 3 Do you need help understanding health information?: Always current occupation: Retired; attends [employer] during the day Sexually active: No Do you think of yourself as: straight/heterosexual Current gender identity: female Seatbelt use: always Do you feel safe at home: Yes Do you feel safe in your relationship?: Yes
--- NOTE | 2019-11-15 15:14 | PDOC.CMDIS ---
- If Service Date Differs Date of service: 11/15/19 Time of Service: 15:14 LACE Index Scoring Tool - Questions: Length of Stay (in days): 4 - 6 Acuity (Admit via E.D.?): Yes Comorbidities: Diabetes w/o Complication, Congestive Heart Failure, Liver or Renal Disease E.D. Visits: 9 - Answers: Total Score: 16 Risk of Readmission: High Risk Care Management Discharge Reason for Hospitalization: Diverticulitis Discharge Plan: Karina is being discharged home today resumption of adult day care and community supports. CM met with patient and her daughter and reviewed community supports. Daughter is interested in respite care. CM provided senior care medicaid application and contact card to assist if needed. Karina states she feels ready to return home and her daughter states she looks much better. Daughter will transport Karina home at time of discharge. Patient/Family Education Needs: Discharge education, limitations and follow up plan of care including ask me three and self management. Services Needed at Discharge: Day Care
[2019-11-15] MEDS: Bacitracin 1 PACKET (16:00)
[2019-11-18 19:47] LABS: Calprotectin 31.3 mcg/g
== END 2019-11-15 16:11 | disposition home or self-care (01) | DRG 378 ==
LOC: ER 15:20 → MS 15:36
PROVIDERS: Internal Medicine; Nurse Practitioner Family; Surgery; Admitting Provider Internal Medicine; Emergency Provider Student in an Organized Health Care Education/Training Program; PCP Student in an Organized Health Care Education/Training Program; Visit Provider Internal Medicine
PROC: 0DJ68ZZ Inspection of Stomach, Via Natural or Artificial Opening Endoscopic (ICD-10-PCS; CPT 43235; principal; 2019-11-13 10:00)
DX: K57.33 Diverticulitis of large intestine without perforation or abscess with bleeding (principal); I13.0 Hypertensive heart and chronic kidney disease with heart failure and stage 1 through stage 4 chronic kidney disease, or unspecified chronic kidney disease; I50.32 Chronic diastolic (congestive) heart failure; N17.9 Acute kidney failure, unspecified; D62 Acute posthemorrhagic anemia; J96.11 Chronic respiratory failure with hypoxia; J44.9 Chronic obstructive pulmonary disease, unspecified; E11.22 Type 2 diabetes mellitus with diabetic chronic kidney disease; E11.42 Type 2 diabetes mellitus with diabetic polyneuropathy; E03.9 Hypothyroidism, unspecified; I25.10 Atherosclerotic heart disease of native coronary artery without angina pectoris; G89.29 Other chronic pain; M54.5 Low back pain; F41.8 Other specified anxiety disorders; E78.5 Hyperlipidemia, unspecified; K21.9 Gastro-esophageal reflux disease without esophagitis; G25.0 Essential tremor; E66.9 Obesity, unspecified; G47.33 Obstructive sleep apnea (adult) (pediatric); I48.0 Paroxysmal atrial fibrillation; I73.9 Peripheral vascular disease, unspecified; M06.9 Rheumatoid arthritis, unspecified; F01.50 Vascular dementia, unspecified severity, without behavioral disturbance, psychotic disturbance, mood disturbance, and anxiety; R93.422 Abnormal radiologic findings on diagnostic imaging of left kidney; R93.421 Abnormal radiologic findings on diagnostic imaging of right kidney; I69.319 Unspecified symptoms and signs involving cognitive functions following cerebral infarction; N18.3 Chronic kidney disease, stage 3 (moderate); D63.1 Anemia in chronic kidney disease; D50.0 Iron deficiency anemia secondary to blood loss (chronic); K27.9 Peptic ulcer, site unspecified, unspecified as acute or chronic, without hemorrhage or perforation; Z79.4 Long term (current) use of insulin; Z68.33 Body mass index [BMI] 33.0-33.9, adult; Z86.73 Personal history of transient ischemic attack (TIA), and cerebral infarction without residual deficits; Z86.711 Personal history of pulmonary embolism; Z95.5 Presence of coronary angioplasty implant and graft; Z87.891 Personal history of nicotine dependence; Z99.81 Dependence on supplemental oxygen
CPT/HCPCS: 36415; 36430; 36569; 76770; 80048; 80053; 83690; 85027; 86850; 86900; 86901; 86920; 93005; 94640; 96361; 96365; 96366; 96368; 99221; 99222; 99223; 99232; 99233; 99239; 99252; 99253; 99285; 74176; 81003; 81015; 82607; 82728; 83036; 83540; 83550; 83880; 83993; 84443; 85014; 85018; 85025; 85045; 86140; 87086; 87324; 93010; J0696; J1756; J1940; J1956; J2405; J2543; J7620; P9016

== ENCOUNTER 2019-11-24 13:39 | Outpatient (REF) | payer MEDICARE, MEDICAID, SELFPAY ==
[2019-11-24 14:51] LABS: Anion Gap 4.6 mmol/L (3-11); BUN 35 mg/dL (7-18); CO2 36.4 mmol/L (21.0-32.0); CREATININE 1.69 mg/dL (0.55-1.02); Calcium 8.8 mg/dL (8.5-10.1); Chloride 102 mmol/L (98-107); Estimated GFR 29.34 (mL/min/1.73m2); Glucose 203 mg/dL (74-106); Potassium 4.2 mmol/L (3.5-5.1); Sodium 143 mmol/L (136-145)
[2019-11-24 14:52] LABS: HCT 32.5 % (36.0-46.0); HGB 9.2 g/dL (12.0-15.5); Mean Corp. HGB Concentration 28.3 g/dL (32.0-36.0); Mean Corpuscular Hemoglobin 25.8 pg (27.0-33.0); Mean Platelet Volume 10.9 fL (8.0-11.0); Platelet Count 313 x1000/uL (130-400); RBC 3.57 m/cumm (4.00-5.20); White Blood Cell Count 10.65 k/cumm (4.4-10.8)
== END 2019-11-24 13:59 ==
LOC: LBN 13:39
PROVIDERS: PCP Student in an Organized Health Care Education/Training Program; Visit Provider Student in an Organized Health Care Education/Training Program
DX: K57.92 Diverticulitis of intestine, part unspecified, without perforation or abscess without bleeding (principal); N17.8 Other acute kidney failure; D50.9 Iron deficiency anemia, unspecified; D62 Acute posthemorrhagic anemia; K92.1 Melena; R79.89 Other specified abnormal findings of blood chemistry
CPT/HCPCS: 80048; 85027

== ENCOUNTER 2019-12-10 12:30 | Emergency (ER) | payer MEDICARE, MEDICAID, SELFPAY ==
[2019-12-10] VITALS (9 sets, daily range): BP systolic 76–160; BP diastolic 43–123; PULSE 56–111; RESP 16–21; TEMP 36.5–37; O2SAT 89–100
--- NOTE | 2019-12-10 13:08 | ED.GENADUL_ITS ---
Discharge Plan Disposition Patient Disposition: HOME Condition: Stable Discharge Details Chief Complaint: GI Bleed Clinical Impression: Acute dehydration Primary Care Provider: Kristal Quiñonez ED Provider: Kristian Brian Home Meds and New Rx's Prescriptions: Continued isosorbide dinitrate 30 mg tablet 30 mg PO BID Qty: 60 RF: 5 insulin glargine 100 unit/mL (3 mL) insulin pen 120 unit subcut DAILY MDD 120 units Qty: 35 RF: 3 gabapentin 100 mg capsule 200 mg PO BID RF: 0 melatonin 3 mg tablet 3 mg PO HS PRNRF: 0 trazodone 50 mg tablet 50 mg PO HS PRNRF: 0 (DME) Oxygen Tank See Rx Instructions .ROUTE .MEDSUPPLY Qty: 1 RF: 0 albuterol sulfate 90 mcg/actuation HFA aerosol inhaler 2 puff IH Q6H PRNRF: 0 buspirone 7.5 mg tablet 7.5 mg PO DAILY Qty: 90 RF: 0 (DME) pen needle, diabetic [BD Ultra-Fine Mini Pen Needle] 31 gauge x 3/16 needle See Rx Instructions .ROUTE .MEDSUPPLY Qty: 200 RF: 3 (DME) pen needle, diabetic [BD Ultra-Fine Mini Pen Needle] 31 gauge x 3/16 needle See Rx Instructions .ROUTE .MEDSUPPLY Qty: 300 RF: 3 (DME) Portable Oxygen System Qty: 1 RF: 0 Novolog U-100 Insulin aspart 100 unit/mL solution See Rx Instructions .ROUTE .COMPLEX PRN (Reason: E11.9) Qty: 25 RF: 3 lidocaine [Lidocaine Pain Relief] 4 % adhesive patch,medicated 1 patch TP DAILY PRN (Reason: pain) Qty: 10 RF: 2 fluticasone propion-salmeterol [Advair Diskus] 250-50 mcg/dose blister with device 1 inh IH BID RF: 0 levothyroxine 75 mcg capsule 75 mcg PO DAILY RF: 0 paroxetine HCl [Paxil] 20 mg tablet 20 mg PO DAILY RF: 0 apixaban 2.5 mg tablet 2.5 mg PO BID Qty: 60 RF: 3 sucralfate 1 gram Tablet 1 g PO AC & HS Qty: 120 RF: 0 atorvastatin 40 mg Tablet 40 mg PO DAILY RF: 0 amlodipine [Norvasc] 2.5 mg Tablet 2.5 mg PO DAILY RF: 0 cholecalciferol (vitamin D3) 1,000 unit Capsule 1,000 unit PO DAILY RF: 0 hydralazine 25 mg Tablet 25 mg PO TID RF: 0 ferrous sulfate 325 mg (65 mg iron) Tablet 325 mg PO DAILY RF: 0 metoprolol succinate 25 mg Tablet Extended Release 24 Hr 25 mg PO DAILY RF: 0 nitroglycerin [Nitrostat] 0.4 mg Tablet, Sublingual 0.4 mg SUBLINGUAL Q5M PRNRF: 0 dicyclomine 20 mg Tablet 20 mg PO DAILY PRNRF: 0 furosemide 40 mg Tablet 40 mg PO BID@0830,1600 Qty: 10 RF: 0 Albuterol-Ipatropium 0.5 mg 3 ml inhalation 4-6XD PRN (Reason: shortness of breath/wheezing) Qty: 60 RF: 0 pantoprazole 40 mg Tablet,Delayed Release (Dr/Ec) 40 mg PO BID@0730,2000 Qty: 60 RF: 0 acetaminophen [Tylenol] 325 mg Tablet 650 mg PO Q6H Qty: 0 RF: 0 Discharge Instructions Instructions: Dehydration (ED) Additional Instructions: Please reduce your Lasix dose to 40 mg once daily for 2 days time. We will ask our care management team to arrange repeat kidney function testing as well as a follow-up with Dr. Giraldo for recheck. Return for any acute concerns. Continue all regularly prescribed medications. Medical Decision Making 79-year-old female presents from home with her daughter. She has a history of COPD, hyperlipidemia, hypertension, CHF, CVA, A. fib, diabetes, chronic kidney disease. She is anticoagulated with apixaban. She was admitted in the middle of November for diverticulitis with GI bleed. She improved and was discharged on a course of Augmentin which she finished. She now has stuttering episodes of lower abdominal pain over 2 days time that was more persistent this morning. She is been evaluated by home health and was referred to the ER for further evaluation. Upon arrival her temp is 37, pulse 62, blood pressure 149/49. She is well- appearing and her exam reveals right lower abdominal tenderness. Labs noted white blood cell count of 11, hematocrit is 31 with a hemoglobin of 9.4 (increased from 9.2). Chemistries with sodium 141, K 4.7, chloride 100, bicarb 38, BUN is elevated at 55 with creatinine 1.92. UA with moderate leuk esterase and 20-50 white blood cells. Does appear potentially contaminated with epithelial cells present. CT reveals diverticuli but no evidence of acute diverticulitis. There are some chronic renal cortical findings that have been previously mentioned, with recommendation for follow-up with either MRI or contrast-enhanced CT. See forma l report. Patient is significantly dehydrated with a BUN of 55 and creatinine 1.9. This is predominantly likely due to overdiuresis as she does take furosemide 40 mg twice daily. She was given 250 cc fluid bolus in the ED. I will have her reduce to once daily furosemide for 2 days and ask care management to obtain a follow-up BUN and creatinine on or Sunday and a subsequent primary care visit/telemedicine visit. Patient and daughter informed of today's findings and plan moving forward. Lab Data Lab results reviewed: Yes I reviewed the patient's lab results. Labs: Laboratory Results - last 24 hr 12/10/19 12/10/19 12/10/19 13:15 13:15 14:30 WBC 11.18 H RBC 3.55 L Hgb 9.4 L Hct 31.4 L MCV 88.5 MCH 26.5 L MCHC 29.9 L RDW 15.7 H Plt Count 277 MPV 10.4 Immature Gran % 0.4 Neutrophils % 73.4 Lymphocytes % 15.9 Monocytes % 6.0 Eosinophils % 3.8 Basophils % 0.5 Absolute Neutrophils 8.21 H Absolute Lymphocytes 1.78 Absolute Monocytes 0.67 Absolute Eosinophils 0.42 Absolute Basophils 0.06 Differential Comment Rbc morph reviewed RBC Morphology See below Polychromasia Present Hypochromasia 1+ Anisocytosis 1+ Stomatocytes 2+ Sodium 141 Potassium 4.7 Chloride 100 Carbon Dioxide 38.2 H Anion Gap 2.8 L BUN 55 H Creatinine 1.92 H Estimated GFR/1.73 m2 25.33 Glucose 155 H Calcium 9.3 Total Bilirubin 0.2 AST 19 ALT 20 Alkaline Phosphatase 93 Total Protein 8.1 Albumin 3.4 Urine Color Yellow Urine Clarity Clear Urine pH 5.5 Ur Specific [place] 1.010 Urine Protein Negative Urine Ketones Negative Urine Blood Negative Urine Nitrite Negative Urine Bilirubin Negative Urine Urobilinogen 0.2 Ur Leukocyte Esterase Moderate H Urine RBC Negative Urine WBC 20-50 H Ur Epithelial Cells Many Urine Crystals Negative Urine Bacteria Few Urine Casts Negative Urine Mucus Negative Urine Other Few renal Ur Culture Indicated? No/sq. contamination Urine Glucose Negative HPI General Mode of arrival: ambulatory . Date/Time Provider Initiated Documentation: 12/10/19 12:32 . Limitations to Documentation: no limitations . Information obtained by: patient . History of Present Illness 79 year old F presents to the emergency department with the chief complaint of Lower abdominal pain, described as moderate, Quality is described as dull, and is localized to the abdomen and right. Patient reports no radiation. Patient started experiencing this hour(s) and it has been intermittent. No relieving factors improve symptom(s), No exacerbating factors reported . Patient notes denies fever/chills and nausea/vomiting. Patient did receive the following treatments prior to arrival, none Related Data Home Medications Medication Instructions Recorded Confirmed amlodipine [Norvasc] 2.5 mg PO DAILY 05/20/19 12/10/19 atorvastatin 40 mg PO DAILY 05/20/19 12/10/19 cholecalciferol (vitamin D3) 1,000 unit PO DAILY 05/20/19 12/10/19 dicyclomine 20 mg PO DAILY PRN 05/20/19 12/10/19 ferrous sulfate 325 mg PO DAILY 05/20/19 12/10/19 hydralazine 25 mg PO TID 05/20/19 12/10/19 metoprolol succinate 25 mg PO DAILY 05/20/19 12/10/19 nitroglycerin [Nitrostat] 0.4 mg SUBLINGUAL Q5M PRN 05/20/19 12/10/19 Albuterol-Ipatropium 3 ml INHALATION 4-6XD PRN #60 each 05/26/19 12/10/19 furosemide 40 mg PO BID@0830,1600 #10 tab 05/26/19 12/10/19 pantoprazole 40 mg PO BID@0730,2000 #60 tab 07/20/19 12/10/19 acetaminophen [Tylenol] 650 mg PO Q6H #0 tab 07/24/19 12/10/19 fluticasone 250 mcg-salmeterol 50 1 inh IH BID 10/02/19 12/10/19 mcg/dose blistr powdr for inhalation levothyroxine 75 mcg capsule 75 mcg PO DAILY 10/02/19 12/10/19 paroxetine HCl 20 mg tablet 20 mg PO DAILY tab 10/02/19 12/10/19 Oxygen #1 each 10/03/19 12/10/19 albuterol sulfate 90 mcg/actuation 2 puff IH Q6H PRN 10/03/19 12/10/19 aerosol inhaler buspirone 7.5 mg tablet 7.5 mg PO DAILY #90 tab 10/03/19 12/10/19 gabapentin 100 mg capsule 200 mg PO BID cap 10/03/19 12/10/19 melatonin 3 mg tablet 3 mg PO HS PRN 10/03/19 12/10/19 trazodone 50 mg tablet 50 mg PO HS PRN tab 10/03/19 12/10/19 isosorbide dinitrate 30 mg tablet 30 mg PO BID #60 tab 10/10/19 12/10/19 Portable Oxygen System #1 ea 10/24/19 12/10/19 insulin aspart U-100 100 unit/mL See Rx Instructions .ROUTE 10/24/19 12/10/19 subcutaneous solution .COMPLEX PRN #25 syringe pen needle, diabetic 31 gauge x #200 each 10/24/19 12/10/1911/16 pen needle, diabetic 31 gauge x #300 each 10/24/19 12/10/1911/16 sucralfate 1 g PO AC & HS #120 tab 11/15/19 12/10/19 lidocaine 4 % topical patch 1 patch TP DAILY PRN #10 each 11/21/19 12/10/19 apixaban 2.5 mg tablet 2.5 mg PO BID #60 tab 12/03/19 12/10/19 insulin glargine 100 unit/mL (3 120 unit SUBCUT DAILY #35 syringe 12/08/19 12/10/19 mL) subcutaneous pen MDD 120 units Previous Rx's Medication Instructions Recorded Albuterol-Ipatropium 3 ml INHALATION 4-6XD PRN #60 each 05/26/19 furosemide 40 mg PO BID@0830,1600 #10 tab 05/26/19 pantoprazole 40 mg PO BID@0730,2000 #60 tab 07/20/19 acetaminophen [Tylenol] 650 mg PO Q6H #0 tab 07/24/19 buspirone 7.5 mg tablet 7.5 mg PO DAILY #90 tab 10/03/19 isosorbide dinitrate 30 mg tablet 30 mg PO BID #60 tab 10/10/19 Portable Oxygen System #1 ea 10/24/19 insulin aspart U-100 100 unit/mL See Rx Instructions .ROUTE 10/24/19 subcutaneous solution .COMPLEX PRN #25 syringe pen needle, diabetic 31 gauge x #200 each 10/24/1911/16 pen needle, diabetic 31 gauge x #300 each 10/24/19/ sucralfate 1 g PO AC & HS #120 tab 11/15/19 lidocaine 4 % topical patch 1 patch TP DAILY PRN #10 each 11/21/19 apixaban 2.5 mg tablet 2.5 mg PO BID #60 tab 12/03/19 insulin glargine 100 unit/mL (3 120 unit SUBCUT DAILY #35 syringe 12/08/19 mL) subcutaneous pen MDD 120 units Allergies Allergy/AdvReac Type Severity Reaction Status Date / Time Morphine AdvReac Severe Agitation Uncoded 11/10/19 10:35 General Stated Complaint: GI Bleed JOSH: 2 Review of Systems Narrative: Denies dark or bloody stools. Normal bowel movements. No vomiting, no fever, no travel, no cough. 8 systems reviewed and otherwise negative. [facility] Medical History Anemia (Chronic) CAD (coronary artery disease) (Chronic) Carotid stenosis (Chronic) s/p bilateral CEA Chronic diastolic CHF (congestive heart failure) (Chronic) Chronic iron deficiency anemia (Acute) Chronic low back pain (Chronic) CKD (chronic kidney disease) (Chronic) COPD (chronic obstructive pulmonary disease) (Chronic) Depression with anxiety (Chronic) Diabetes mellitus (Chronic) 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 mellitus (Chronic) Diverticulitis (Acute) Functional tremor (Chronic) GERD (gastroesophageal reflux disease) (Chronic) History of pulmonary embolism (Chronic) Hyperlipidemia (Chronic) Hypertension (Chronic) Hypothyroidism (Chronic) Iron deficiency (Chronic) Obesity (BMI 30.0-34.9) (Chronic) DANYELLE (obstructive sleep apnea) (Chronic) Paroxysmal atrial fibrillation (Chronic) Peripheral vascular disease (Chronic) Renal mass (Acute) Rheumatoid arthritis (Chronic) 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 Other Heart disease Social History Smoking/Tobacco Use Status: Former Tobacco Use Alcohol Intake: never Drug use: Never Substance use type: does not use Adopted: No Foster care: No Household members: children Housing: house Number of Children: 3 Do you need help understanding health information?: Always current occupation: Retired; attends [employer] during the day Sexually active: No Do you think of yourself as: straight/heterosexual Current gender identity: female Seatbelt use: always Do you feel safe at home: Yes Do you feel safe in your relationship?: Yes Exam Narrative Exam Narrative: GEN: awake, alert, oriented 3. Pleasant, well groomed, interactive. HEAD: Normocephalic, atraumatic ENT: Mucous membranes moist, oropharynx unremarkable, External ear exam unremarkable EYES: PERRL, EOMI NECK: Full ROM, no RAUL, no menigismus CHEST/RESP: Nontender, clear to auscultation bilateral, no wheeze/rhonchi/rales CARDIOVASCULAR: RRR, no murmur, rub chrissie. 2+ Rad pulse bilateral ABDOMEN: Soft, tender right lower quadrant to palpation, no mass. +Bowel sounds EXT: Full ROM, no edema, no rash Neuro: Grossly normal neurologic exam, conversant, interactive. Psych: Speech fluent, thoughts congruent, affect normal Course Vital Signs Vital signs: Vital Signs Temperature 37 C 12/10/19 12:37 Pulse 62 12/10/19 12:37 Respiratory Rate 16 12/10/19 12:37 Blood Pressure 149/49 H 12/10/19 12:37 Pulse Oximetry 100 12/10/19 12:37 Temperature 37 C 12/10/19 12:37 Temperature Source Temporal Artery Scan 12/10/19 12:37 Pulse 62 12/10/19 12:37 Respiratory Rate 16 12/10/19 12:37 Respiratory Effort 12/10/19 12:42 Blood Pressure 149/49 H 12/10/19 12:37 Blood Pressure Position Sitting 12/10/19 12:37 Pulse Oximetry 100 12/10/19 12:37 Oxygen Delivery Method Nasal Cannula 12/10/19 12:37 Oxygen Flow Rate 3 12/10/19 12:37 Pain Level 0 12/10/19 12:37
--- NOTE | 2019-12-10 13:20 | DI.CT_ITS ---
EXAM: CT ABDOMEN PELVIS WO CLINICAL HISTORY: RLQ pain, renal insuffic. oral contrast pls. TECHNIQUE: COMPARISON: CT ABDOMEN PELVIS WO from 11/10/2019 FINDINGS: CT examination of the abdomen and pelvis was performed utilizing oral contrast only due to patient's impaired renal function. Images obtained through the lung bases show no specific abnormality. The l iver and spleen appear normal by noncontrast criteria as does the pancreas. Gallbladder and bile jada ts are CT normal. Abdominal aorta is of normal diameter. No significant abdominal wall hernia. No significant abdominal or pelvic adenopathy. There are multiple bilateral apparent renal cortical mas ses as noted on prior scan of November 09. Additional evaluation with ultrasound, contrast enhanced CT , or MRI may be considered for further evaluation. Appendix is normal. There is marked colonic diverticulosis. No evidence of acute diverticulitis at this time. IMPRESSION: No evidence of acute intra-abdominal process. Multiple small indeterminate renal cortical lesions ar e seen as described on prior CT. Additional evaluation with ultrasound, contrast enhanced CT, or MRI may be considered to evaluate the likelihood of neoplasm associated with these renal findings.
[2019-12-10 13:28] LABS: Abs Immature Grans 0.04 k/cumm (0.0-0.09); Absolute Basophil Count 0.06 k/cumm (0.0-0.2); Absolute Lymphocyte Count 1.78 k/cumm (1.2-3.4); Absolute Monocyte Count 0.67 k/cumm (0.11-0.7); Basophils % 0.5; Eosinophils % 3.8; HCT 31.4 % (36.0-46.0); HGB 9.4 g/dL (12.0-15.5); Immature Grans % 0.4 %; Lymphocytes % 15.9; Mean Corp. HGB Concentration 29.9 g/dL (32.0-36.0); Mean Corpuscular Hemoglobin 26.5 pg (27.0-33.0); Mean Corpuscular Volume 88.5 fL (80-95); Mean Platelet Volume 10.4 fL (8.0-11.0); Neutrophils % 73.4; Platelet Count 277 x1000/uL (130-400); RBC 3.55 m/cumm (4.00-5.20); RBC Distribution Width 15.7 % (11.7-14.6); White Blood Cell Count 11.18 k/cumm (4.4-10.8)
[2019-12-10 13:31] LABS: Absolute Eosinophil Count 0.42 k/cumm (0.0-0.7); Absolute Neutrophil Count 8.21 k/cumm (1.2-6.7)
[2019-12-10 13:41] LABS: ALT 20 U/L (14-59); AST 19 U/L (15-37); Albumin 3.4 g/dL (3.4-5.0); Alkaline Phosphatase 93 U/L (46-116); Anion Gap 2.8 mmol/L (3-11); BUN 55 mg/dL (7-18); Bilirubin, Total 0.2 mg/dL (0.2-1.0); CO2 38.2 mmol/L (21.0-32.0); CREATININE 1.92 mg/dL (0.55-1.02); Calcium 9.3 mg/dL (8.5-10.1); Chloride 100 mmol/L (98-107); Estimated GFR 25.33 (mL/min/1.73m2); Glucose 155 mg/dL (74-106); Potassium 4.7 mmol/L (3.5-5.1); Sodium 141 mmol/L (136-145); Total Protein 8.1 g/dL (6.4-8.2)
[2019-12-10 13:46] LABS: Anisocytosis 1+; Diff Comment RBC Morph Reviewed; Hypochromasia 1+
[2019-12-10 13:47] LABS: Polychromasia Present; Stomatocytes 2+
[2019-12-10] MEDS: Normal Saline 1,000 ML 125 ML IV (13:47)
[2019-12-10 14:43] LABS: Bilirubin Negative (Negative); Blood Negative (Negative); Clarity Clear (Clear); Glucose Negative (Negative); Ketones Negative (Negative); Leukocyte Esterase Moderate (Negative); Nitrite Negative (Negative); Urobilinogen 0.2 EU/dL (Up TO 0.2); pH 5.5 (5-8)
[2019-12-10 14:53] LABS: Bacteria Few HPF (Negative); Epithelial Cells Many HPF (Negative); Other Cells Few Renal (Negative); RBC Negative HPF (0-2); WBC 20-50 HPF (0-5)
[2019-12-10 14:54] LABS: C & S Indicated? No/Sq. Contamination; Casts Negative LPF (Negative); Crystals Negative HPF (Negative); Mucus Negative (Negative)
--- NOTE | 2019-12-11 06:29 | NUR.NOTE ---
referral sent to PCP for followup care Nursing Note:
== END 2019-12-10 16:21 | disposition home or self-care (01) ==
PROVIDERS: Emergency Provider Emergency Medicine; PCP Student in an Organized Health Care Education/Training Program
DX: E86.0 Dehydration (principal); J44.9 Chronic obstructive pulmonary disease, unspecified; I13.0 Hypertensive heart and chronic kidney disease with heart failure and stage 1 through stage 4 chronic kidney disease, or unspecified chronic kidney disease; E11.22 Type 2 diabetes mellitus with diabetic chronic kidney disease; N18.9 Chronic kidney disease, unspecified; I50.9 Heart failure, unspecified
CPT/HCPCS: 36415; 36416; 80053; 82962; 96360; 96361; 99284; 74176; 81003; 81015; 85025

== ENCOUNTER 2019-12-12 21:06 | Outpatient (REF) | payer MEDICARE, MEDICAID, SELFPAY ==
[2019-12-12 20:57] LABS: HCT 30.5 % (36.0-46.0); HGB 8.9 g/dL (12.0-15.5); Mean Corp. HGB Concentration 29.2 g/dL (32.0-36.0); Mean Corpuscular Hemoglobin 25.9 pg (27.0-33.0); Mean Corpuscular Volume 88.9 fL (80-95); Mean Platelet Volume 11.3 fL (8.0-11.0); Platelet Count 241 x1000/uL (130-400); RBC 3.43 m/cumm (4.00-5.20); RBC Distribution Width 15.7 % (11.7-14.6); White Blood Cell Count 9.37 k/cumm (4.4-10.8)
[2019-12-12 21:03] LABS: Albumin 3.4 g/dL (3.4-5.0); Anion Gap 1.3 mmol/L (3-11); BUN 36 mg/dL (7-18); CO2 38.7 mmol/L (21.0-32.0); CREATININE 1.67 mg/dL (0.55-1.02); Calcium 8.8 mg/dL (8.5-10.1); Chloride 103 mmol/L (98-107); Estimated GFR 29.75 (mL/min/1.73m2); Glucose 228 mg/dL (74-106); PHOSPHORUS 3.5 mg/dL (2.6-4.7); Potassium 4.3 mmol/L (3.5-5.1); Sodium 143 mmol/L (136-145)
== END 2019-12-12 21:26 ==
LOC: LBN 21:06
PROVIDERS: PCP Student in an Organized Health Care Education/Training Program; Visit Provider Student in an Organized Health Care Education/Training Program
DX: D62 Acute posthemorrhagic anemia (principal); I13.0 Hypertensive heart and chronic kidney disease with heart failure and stage 1 through stage 4 chronic kidney disease, or unspecified chronic kidney disease; K92.1 Melena
CPT/HCPCS: 80069; 85027

== ENCOUNTER 2019-12-25 12:16 | Outpatient (REF) | payer MEDICARE, MEDICAID, SELFPAY ==
[2019-12-25 14:44] LABS: HCT 31.9 % (36.0-46.0); HGB 9.5 g/dL (12.0-15.5)
[2019-12-25 14:56] LABS: Anion Gap 2.7 mmol/L (3-11); BUN 49 mg/dL (7-18); CO2 37.3 mmol/L (21.0-32.0); CREATININE 1.88 mg/dL (0.55-1.02); Calcium 9.4 mg/dL (8.5-10.1); Chloride 100 mmol/L (98-107); Estimated GFR 25.95 (mL/min/1.73m2); Glucose 168 mg/dL (74-106); Potassium 4.9 mmol/L (3.5-5.1); Sodium 140 mmol/L (136-145)
== END 2019-12-25 12:36 ==
LOC: LBN 12:16
PROVIDERS: PCP Student in an Organized Health Care Education/Training Program; Visit Provider Student in an Organized Health Care Education/Training Program
DX: D62 Acute posthemorrhagic anemia (principal); D50.9 Iron deficiency anemia, unspecified; I13.0 Hypertensive heart and chronic kidney disease with heart failure and stage 1 through stage 4 chronic kidney disease, or unspecified chronic kidney disease; K92.1 Melena; R79.89 Other specified abnormal findings of blood chemistry
CPT/HCPCS: 80048; 85014; 85018

== ENCOUNTER 2020-01-05 12:24 | Outpatient (REF) | payer MEDICARE, MEDICAID, SELFPAY ==
[2020-01-05 13:51] LABS: PROTEIN < 6.0 mg/dL
== END 2020-01-05 12:44 ==
LOC: LBN 12:24
PROVIDERS: PCP Student in an Organized Health Care Education/Training Program; Visit Provider Internal Medicine Nephrology
DX: N18.9 Chronic kidney disease, unspecified (principal); I13.0 Hypertensive heart and chronic kidney disease with heart failure and stage 1 through stage 4 chronic kidney disease, or unspecified chronic kidney disease
CPT/HCPCS: 82565; 84156

== ENCOUNTER 2020-01-27 01:15 | Outpatient (RCR) | payer MEDICARE, MEDICAID, SELFPAY ==
[2020-01-13] MEDS: IRON SUCROSE COMPLEX 300 MG in Normal Saline 250 ML 176.667 MG IVPB (13:05)
[2020-01-13] MEDS: Normal Saline Flush 10 ML SYR IVP (13:18)
[2020-01-20] MEDS: Normal Saline Flush 10 ML SYR IVP (13:17)
[2020-01-20] MEDS: IRON SUCROSE COMPLEX 300 MG in Normal Saline 250 ML 176.667 MG IVPB (13:17)
[2020-01-27] MEDS: IRON SUCROSE COMPLEX 300 MG in Normal Saline 250 ML 176.667 MG IVPB (13:00)
[2020-01-27] MEDS: Normal Saline Flush 10 ML SYR IVP (14:55)
== END 2020-02-01 23:59 | disposition home or self-care (01) ==
LOC: INF 01:15
PROVIDERS: PCP Student in an Organized Health Care Education/Training Program; Visit Provider Internal Medicine
DX: N18.4 Chronic kidney disease, stage 4 (severe) (principal); D63.1 Anemia in chronic kidney disease; D50.9 Iron deficiency anemia, unspecified
CPT/HCPCS: 96365; 96366; J1756

== ENCOUNTER 2020-02-05 03:21 | Outpatient (CLI) | payer MEDICARE, MEDICAID, SELFPAY ==
[2020-02-05 13:31] LABS: Abs Immature Grans 0.05 k/cumm (0.0-0.09); Absolute Basophil Count 0.07 k/cumm (0.0-0.2); Absolute Eosinophil Count 0.35 k/cumm (0.0-0.7); Absolute Lymphocyte Count 1.82 k/cumm (1.2-3.4); Absolute Monocyte Count 0.71 k/cumm (0.11-0.7); Basophils % 0.6; Eosinophils % 3.1; HCT 36.1 % (36.0-46.0); HGB 10.8 g/dL (12.0-15.5); Immature Grans % 0.4 %; Lymphocytes % 15.9; Mean Corp. HGB Concentration 29.9 g/dL (32.0-36.0); Mean Corpuscular Volume 86.8 fL (80-95); Mean Platelet Volume 10.3 fL (8.0-11.0); Monocytes % 6.2; Neutrophils % 73.8; Platelet Count 291 x1000/uL (130-400); RBC 4.16 m/cumm (4.00-5.20); RBC Distribution Width 16.4 % (11.7-14.6); White Blood Cell Count 11.42 k/cumm (4.4-10.8)
[2020-02-05 13:32] LABS: Absolute Neutrophil Count 8.43 k/cumm (1.2-6.7)
[2020-02-05 13:48] LABS: PROTEIN 6.7 mg/dL
[2020-02-05 13:49] LABS: COMMENT (LAB VIEW ONLY) 30.73 mg/dL; Prot/Crea Ur Ratio 0.21
[2020-02-05 14:35] LABS: Albumin 3.8 g/dL (3.4-5.0); Anion Gap 2.2 mmol/L (3-11); BUN 55 mg/dL (7-18); CO2 35.8 mmol/L (21.0-32.0); CREATININE 2.06 mg/dL (0.55-1.02); Calcium 9.2 mg/dL (8.5-10.1); Chloride 100 mmol/L (98-107); Estimated GFR 23.35 (mL/min/1.73m2); Glucose 116 mg/dL (74-106); PHOSPHORUS 3.7 mg/dL (2.6-4.7); Potassium 4.8 mmol/L (3.5-5.1); Sodium 138 mmol/L (136-145); Uric Acid 8.8 mg/dL (2.6-6.0)
[2020-02-05 14:52] LABS: Iron 56 ug/dL (50-170); Total Iron Binding Capacity 247 ug/dL (250-450); Transferrin Sat 23 % (15-50)
[2020-02-05 15:19] LABS: Ferritin 541 ng/mL (8-252); Folate 10.5 ng/mL (8.6-20.0); Vitamin B12 811 pg/mL (193-986)
[2020-02-06 09:33] LABS: Parathyroid Hormone,Intact 51 pg/mL (19-88)
[2020-02-06 12:51] LABS: HBs Antibody, Quant <3.1 mIU/mL (See Note); Hepatitis B Surface Ab Negative (See Note); Hepatitis B Surface Ag Negative (Negative)
[2020-02-10 08:54] LABS: Methylmalonic Acid 1.22 nmol/mL (<=0.40)
[2020-02-10 10:13] LABS: 25-Hydroxy D Total 67 ng/mL; 25-Hydroxy D2 <4.0 ng/mL; 25-Hydroxy D3 67 ng/mL
== END 2020-02-05 03:41 ==
PROVIDERS: PCP Student in an Organized Health Care Education/Training Program; Visit Provider Nurse Practitioner
DX: M25.50 Pain in unspecified joint (principal); N18.3 Chronic kidney disease, stage 3 (moderate); D64.9 Anemia, unspecified
CPT/HCPCS: 36415; 80048; 80186; 82306; 86706; 87340; 82040; 82397; 82565; 82607; 82728; 82746; 83540; 83550; 83970; 84100; 84156; 84550; 85025

== ENCOUNTER 2020-02-12 12:55 | Outpatient (CLI) | payer MEDICARE, MEDICAID, SELFPAY ==
[2020-02-12 15:23] LABS: Anion Gap 7.1 mmol/L (3-11); BUN 47 mg/dL (7-18); CO2 32.9 mmol/L (21.0-32.0); CREATININE 2.06 mg/dL (0.55-1.02); Calcium 8.8 mg/dL (8.5-10.1); Chloride 99 mmol/L (98-107); Estimated GFR 23.35 (mL/min/1.73m2); Glucose 200 mg/dL (74-106); Potassium 4.6 mmol/L (3.5-5.1); Sodium 139 mmol/L (136-145)
== END 2020-02-12 13:15 ==
PROVIDERS: PCP Student in an Organized Health Care Education/Training Program; Visit Provider Nurse Practitioner
DX: R79.9 Abnormal finding of blood chemistry, unspecified (principal)
CPT/HCPCS: 36415; 80048

== ENCOUNTER 2020-03-15 12:03 | Outpatient (REF) | payer MEDICARE, MEDICAID, SELFPAY ==
[2020-03-15 13:06] LABS: Anion Gap 8.8 mmol/L (3-11); BUN 54 mg/dL (7-18); CO2 32.2 mmol/L (21.0-32.0); CREATININE 2.39 mg/dL (0.55-1.02); Calcium 9.2 mg/dL (8.5-10.1); Chloride 99 mmol/L (98-107); Estimated GFR 19.67 (mL/min/1.73m2); Glucose 146 mg/dL (74-106); Potassium 4.6 mmol/L (3.5-5.1); Sodium 140 mmol/L (136-145)
== END 2020-03-15 12:23 ==
LOC: LBN 12:03
PROVIDERS: PCP Student in an Organized Health Care Education/Training Program; Visit Provider Student in an Organized Health Care Education/Training Program
DX: N18.9 Chronic kidney disease, unspecified (principal)
CPT/HCPCS: 80048

== ENCOUNTER 2020-04-16 18:34 | Outpatient (REF) | payer MEDICARE, MEDICAID, SELFPAY | END 2020-04-16 18:54 | LOC: LBN 18:34 | PROVIDERS: PCP Student in an Organized Health Care Education/Training Program; Visit Provider Student in an Organized Health Care Education/Training Program | DX: R41.0 Disorientation, unspecified (principal); E86.0 Dehydration | CPT/HCPCS: 87086 ==

== ENCOUNTER 2020-04-18 01:56 | Emergency (ER) | payer MEDICARE, MEDICAID, SELFPAY ==
[2020-04-18] VITALS (13 sets, daily range): BP systolic 156–182; BP diastolic 47–88; PULSE 58–69; RESP 12–25; TEMP 36.7; O2SAT 92–100
--- NOTE | 2020-04-18 02:00 | RT.EKG_ITS ---
APPROVED REPORT Exam: Resting ECG Patient Location: E HR:59 bpm ECG Measurements Heart Rate 59 AXIS LA 208 P 52 QRSd 102 QRS -50 QT 452 T 50 QTc 449 Conclusion Sinus bradycardia...rate< 60 Left anterior fascicular block...axis(240,-40), init forces inf No change from old dated 11/10/2019
--- NOTE | 2020-04-18 02:15 | DI.RAD_ITS ---
EXAM: XR CHEST 2V PA LATERAL CLINICAL HISTORY: CP TECHNIQUE: 2D digital imaging was performed. COMPARISON: No exams were available for comparison FINDINGS: Exam is somewhat limited to patient positioning and body habitus. The heart is mildly enlarged. The aorta shows calcification. Lungs are clear. Degenerative changes are noted in the spine. There ar e surgical clips on both sides of the neck. IMPRESSION: No acute pulmonary findings. DATA REPOSITORY: RADIATION DOSE DELIVERED:
--- NOTE | 2020-04-18 02:30 | DI.CT_ITS ---
EXAM: CT HEAD WO CLINICAL HISTORY: headache, dizzy, on eliquis. TECHNIQUE: Imaging Protocol: Axial computed tomography images with coronal and sagittal reformatted images were created and reviewed COMPARISON: No exams were available for comparison FINDINGS: Ventricles and Extra axial spaces: Normal in size and morphology for the patient's age. Hemorrhage: None. Cerebral parenchyma: Old left parietal infarct. Mild white matter changes of small vessel disease. Midline shift: None. Brainstem/Cerebellum: Normal. Calvarium: Normal. Visualized Paranasal sinuses/Mastoids: Clear. Soft Tissues: Unremarkable. IMPRESSION: Old left parietal infarct. No acute intracranial process. RADIATION DOSE DELIVERED: 706.47mGy.cm Total DLP DATA REPOSITORY: All CT scans at this facility are submitted to the National Radiology Data Registry (NRDR) Dose Index Registry (DIR) with the [employer] (A[employer]). RADIATION OPTIMIZATION: All CT scans at this facility use at least one of these dose optimization te chniques: automated exposure control; mA and/or kV adjustment per patient size (includes targeted exa ms where dose is matched to clinical indication); or iterative reconstruction.
[2020-04-18 03:17] LABS: Abs Immature Grans 0.07 10^3/uL (0.0-0.06); Absolute Lymphocyte Count 1.69 10^3/uL (1.2-3.4); Absolute Monocyte Count 0.64 10^3/uL (0.1-0.8); Basophils % 0.4; Eosinophils % 3.6; HCT 37.3 % (36.0-46.0); HGB 11.3 g/dL (11.2-15.7); Immature Grans % 0.6; Lymphocytes % 15.1; MCH 26.8 pg (27.0-33.0); MCHC 30.3 % (32.0-36.0); MCV 88.6 fL (80-95); MPV 10.4 fL (8.0-11.0); Monocytes % 5.7; Neutrophils % 74.6; Nucleated RBC 0 %; Platelet Count 271 10^3/uL (130-400); RBC 4.21 10^6/uL (3.93-5.22); RDW 15.7 % (11.7-14.6); RDW-SD 50.3 fL; WBC 11.16 10^3/uL (4.4-10.8)
[2020-04-18 03:18] LABS: Bilirubin Negative (Negative); Blood Trace-intact (Negative); Clarity Clear (Clear); Glucose Negative (Negative); Ketones Negative (Negative); Leukocyte Esterase Small (Negative); Nitrite Negative (Negative); Urobilinogen 0.2 EU/dL (Up TO 0.2)
[2020-04-18 03:20] LABS: Absolute Basophil Count 0.04 10^3/uL (0.0-0.2); Absolute Neutrophil Count 8.33 10^3/uL (1.2-6.7)
[2020-04-18 03:21] LABS: Bacteria Few HPF (Negative); C & S Indicated? Yes; Casts Negative LPF (Negative); Crystals Negative HPF (Negative); Epithelial Cells Few HPF (Negative); Mucus Negative (Negative); RBC 0-2 HPF (0-2)
--- NOTE | 2020-04-18 03:36 | ED.GENADUL_ITS ---
Discharge Plan Disposition Patient Disposition: HOME Condition: Good Discharge Details Chief Complaint: GenMedical Clinical Impression: UTI (urinary tract infection) Primary Care Provider: Kristal Quiñonez ED Provider: Pedro Nichole [place] Meds and New Rx's Prescriptions: New cephalexin 500 mg tablet 500 mg PO Q8H Qty: 20 RF: 0 Continued isosorbide dinitrate 30 mg tablet 30 mg PO BID Qty: 60 RF: 5 (DME) incentive spirometer Qty: 1 RF: 0 atorvastatin 40 mg tablet 40 mg PO DAILY Qty: 90 RF: 3 Ozempic 0.25 mg or 0.5 mg(2 mg/1.5 mL) pen injector 0.25 mg SC QWEEK Qty: 1.5 RF: 1 gabapentin 100 mg capsule 200 mg PO BID RF: 0 melatonin 3 mg tablet 3 mg PO HS PRNRF: 0 (DME) Oxygen Tank See Rx Instructions .ROUTE .MEDSUPPLY Qty: 1 RF: 0 albuterol sulfate 90 mcg/actuation HFA aerosol inhaler 2 puff IH Q6H PRNRF: 0 (DME) pen needle, diabetic [BD Ultra-Fine Mini Pen Needle] 31 gauge x 3/16 needle See Rx Instructions .ROUTE .MEDSUPPLY Qty: 200 RF: 3 (DME) pen needle, diabetic [BD Ultra-Fine Mini Pen Needle] 31 gauge x 3/16 needle See Rx Instructions .ROUTE .MEDSUPPLY Qty: 300 RF: 3 (DME) Portable Oxygen System Qty: 1 RF: 0 Novolog U-100 Insulin aspart 100 unit/mL solution See Rx Instructions .ROUTE .COMPLEX PRN (Reason: E11.9) Qty: 25 RF: 3 lidocaine [Lidocaine Pain Relief] 4 % adhesive patch,medicated 1 patch TP DAILY PRN (Reason: pain) Qty: 10 RF: 2 colchicine 0.6 mg tablet 0.6 mg PO BID PRN (Reason: swelling and pain) Qty: 10 RF: 0 fluticasone propion-salmeterol [Advair Diskus] 250-50 mcg/dose blister with device 1 inh IH BID RF: 0 levothyroxine 75 mcg capsule 75 mcg PO DAILY RF: 0 apixaban 2.5 mg tablet 2.5 mg PO BID Qty: 60 RF: 3 erythromycin 5 mg/gram (0.5 %) ointment 0.5 inch ophthalmic (eye) TID Qty: 3.5 RF: 0 paroxetine HCl [Paxil] 20 mg tablet 20 mg PO DAILY Qty: 90 RF: 3 trazodone 50 mg tablet 50 mg PO HS PRN (Reason: insomnia) Qty: 30 RF: 1 CPAP inhalation RF: 0 hydralazine 25 mg tablet 25 mg PO TID Qty: 270 RF: 3 Tradjenta 5 mg tablet 5 mg PO DAILY Qty: 90 RF: 3 pantoprazole 40 mg tablet,delayed release (DR/EC) 40 mg PO BID@0730,2000 Qty: 180 RF: 3 amlodipine [Norvasc] 2.5 mg tablet 2.5 mg PO DAILY Qty: 90 RF: 3 buspirone 7.5 mg tablet 7.5 mg PO DAILY Qty: 90 RF: 0 metoprolol succinate 25 mg tablet extended release 24 hr 25 mg PO DAILY Qty: 90 RF: 3 cholecalciferol (vitamin D3) 1,000 unit Capsule 1,000 unit PO DAILY RF: 0 ferrous sulfate 325 mg (65 mg iron) Tablet 325 mg PO DAILY RF: 0 nitroglycerin [Nitrostat] 0.4 mg Tablet, Sublingual 0.4 mg SUBLINGUAL Q5M PRNRF: 0 dicyclomine 20 mg Tablet 20 mg PO DAILY PRNRF: 0 furosemide 40 mg Tablet 40 mg PO BID@0830,1600 Qty: 10 RF: 0 Albuterol-Ipatropium 0.5 mg 3 ml inhalation 4-6XD PRN (Reason: shortness of breath/wheezing) Qty: 60 RF: 0 acetaminophen [Tylenol] 325 mg Tablet 650 mg PO Q6H Qty: 0 RF: 0 allopurinol 100 mg tablet 100 mg DAILY RF: 0 insulin glargine 100 unit/mL (3 mL) insulin pen 40 unit subcut BID MDD 120 units RF: 0 Discharge Instructions Instructions: Urinary Tract Infection in Women (ED) Additional Instructions: Your EKG and laboratory studies are unchanged from previous. Your urine does appear to be infected and we will treat with antibiotic. CT scan of your head and chest x-ray showed no acute changes. Follow-up with primary care next week. Return to ED for neurologic changes, syncope, new or worsening chest pain, shortness of breath. Referrals: Kristal Quiñonez DO [Primary Care Provider] - Medical Decision Making Patient presenting with conflicting stories. Patient reports chest pain as presenting complaint. Daughter and EMS report headache, dizziness. There is no syncope. Chest pain is reproducible with palpation. Patient is neurologically intact. She does complain of headache at this point when directly asked. EKG shows no acute changes and no change from old. IV in place. Will get labs including troponin. Will obtain head CT given report of dizziness and headache as she is on Eliquis. Chest x-ray and urine ordered. 04:20 - Labs returned at baseline. BUN and creatinine are elevated but at her baseline. Bicarb also up but again baseline. White count minimally elevated. Liver function fine. Troponin negative. Urinalysis suggestive of UTI with small leukocyte esterase on dip and 10-20 white cells on micro with only few epithelial cells noted. CT head negative for anything acute and no bleed. Chest x-ray stable with no change. Patient up and ambulated in ED with walker with no issues. Will treat presumed UTI with Keflex. Follow-up with primary care next week. Return to ED for problems. Medical Records Medical records reviewed: Yes I reviewed the patient's medical records. Lab Data Lab results reviewed: Yes I reviewed the patient's lab results. HPI General Mode of arrival: EMS . Date/Time Provider Initiated Documentation: 04/18/20 02:02 . Limitations to Documentation: no limitations . Information obtained by: patient, family, EMS, RN notes reviewed and old records reviewed . HPI Narrative: Patient presents to ED by ambulance, she states because of pain that radiates from one shoulder to the other across the chest. EMS and daughter report patient sent in after home health came out to evaluate her this evening. Patient is a palliative care patient. She had gone to bed after spending the evening out with family. She got up to go to the bathroom. She vomited once. While trying to go back to bed she got extremely lightheaded and dizzy. She fell back into a chair but did not hit the floor and did not have loss of consciousness. Daughter called home health who came to evaluate patient. Blood pressures were elevated. Patient tried to stand again but was too dizzy. That is when EMS was called. She has had no further emesis. Patient only reports bilateral shoulder and chest pain to me. Daughter reports that patient complained of having headache and dizziness. When directly asked this patient states yes. Patient is on Eliquis. Related Data Home Medications Medication Instructions Recorded Confirmed cholecalciferol (vitamin D3) 1,000 unit PO DAILY 05/20/19 04/18/20 dicyclomine 20 mg PO DAILY PRN 05/20/19 04/18/20 ferrous sulfate 325 mg PO DAILY 05/20/19 04/18/20 nitroglycerin [Nitrostat] 0.4 mg SUBLINGUAL Q5M PRN 05/20/19 04/18/20 Albuterol-Ipatropium 3 ml INHALATION 4-6XD PRN #60 each 05/26/19 04/18/20 furosemide 40 mg PO BID@0830,1600 #10 tab 05/26/19 04/18/20 acetaminophen [Tylenol] 650 mg PO Q6H #0 tab 07/24/19 04/18/20 fluticasone 250 mcg-salmeterol 50 1 inh IH BID 10/02/19 04/18/20 mcg/dose blistr powdr for inhalation levothyroxine 75 mcg capsule 75 mcg PO DAILY 10/02/19 04/18/20 Oxygen #1 each 10/03/19 03/28/20 albuterol sulfate 90 mcg/actuation 2 puff IH Q6H PRN 10/03/19 04/18/20 aerosol inhaler gabapentin 100 mg capsule 200 mg PO BID cap 10/03/19 04/18/20 melatonin 3 mg tablet 3 mg PO HS PRN 10/03/19 04/18/20 isosorbide dinitrate 30 mg tablet 30 mg PO BID #60 tab 10/10/19 04/18/20 Portable Oxygen System #1 ea 10/24/19 03/28/20 insulin aspart U-100 100 unit/mL See Rx Instructions .ROUTE 10/24/19 03/28/20 subcutaneous solution .COMPLEX PRN #25 syringe pen needle, diabetic 31 gauge x #200 each 10/24/19 03/28/2011/16 pen needle, diabetic 31 gauge x #300 each 10/24/19 03/28/2011/16 lidocaine 4 % topical patch 1 patch TP DAILY PRN #10 each 11/21/19 04/18/20 apixaban 2.5 mg tablet 2.5 mg PO BID #60 tab 12/03/19 04/18/20 erythromycin 5 mg/gram (0.5 %) eye 0.5 inch OPHTHALMIC (EYE) TID #3.5 12/22/19 04/18/20 ointment gm incentive spirometer #1 ea 01/02/20 03/28/20 paroxetine HCl 20 mg tablet 20 mg PO DAILY #90 tab 01/20/20 04/18/20 trazodone 50 mg tablet 50 mg PO HS PRN #30 tab 01/20/20 04/18/20 CPAP INHALATION 02/04/20 03/28/20 atorvastatin 40 mg tablet 40 mg PO DAILY #90 tab 02/06/20 04/18/20 semaglutide 0.25 mg SC QWEEK #1.5 ml 02/26/20 04/18/20 colchicine 0.6 mg tablet 0.6 mg PO BID PRN #10 tab 03/09/20 04/18/20 hydralazine 25 mg tablet 25 mg PO TID #270 tab 03/23/20 04/18/20 linagliptin 5 mg tablet 5 mg PO DAILY #90 tab 03/23/20 04/18/20 pantoprazole 40 mg tablet,delayed 40 mg PO BID@0730,2000 #180 tab 03/23/20 04/18/20 release amlodipine 2.5 mg tablet 2.5 mg PO DAILY #90 tab 04/15/20 04/18/20 buspirone 7.5 mg tablet 7.5 mg PO DAILY #90 tab 04/15/20 04/18/20 metoprolol succinate 25 mg 25 mg PO DAILY #90 tab 04/15/20 04/18/20 tablet,extended release 24 hr allopurinol 100 mg DAILY 04/18/20 04/18/20 cephalexin 500 mg PO Q8H #20 tab 04/18/20 insulin glargine 40 unit SUBCUT BID MDD 120 units 04/18/20 04/18/20 Previous Rx's Medication Instructions Recorded Albuterol-Ipatropium 3 ml INHALATION 4-6XD PRN #60 each 05/26/19 furosemide 40 mg PO BID@0830,1600 #10 tab 05/26/19 acetaminophen [Tylenol] 650 mg PO Q6H #0 tab 07/24/19 isosorbide dinitrate 30 mg tablet 30 mg PO BID #60 tab 10/10/19 Portable Oxygen System #1 ea 10/24/19 insulin aspart U-100 100 unit/mL See Rx Instructions .ROUTE 10/24/19 subcutaneous solution .COMPLEX PRN #25 syringe pen needle, diabetic 31 gauge x #200 each 10/24/1911/16 pen needle, diabetic 31 gauge x #300 each 10/24/1911/16 lidocaine 4 % topical patch 1 patch TP DAILY PRN #10 each 11/21/19 apixaban 2.5 mg tablet 2.5 mg PO BID #60 tab 12/03/19 erythromycin 5 mg/gram (0.5 %) eye 0.5 inch OPHTHALMIC (EYE) TID #3.5 12/22/19 ointment incentive spirometer #1 ea 01/02/20 paroxetine HCl 20 mg tablet 20 mg PO DAILY #90 tab 01/20/20 trazodone 50 mg tablet 50 mg PO HS PRN #30 tab 01/20/20 atorvastatin 40 mg tablet 40 mg PO DAILY #90 tab 02/06/20 semaglutide 0.25 mg SC QWEEK #1.5 ml 02/26/20 colchicine 0.6 mg tablet 0.6 mg PO BID PRN #10 tab 03/09/20 hydralazine 25 mg tablet 25 mg PO TID #270 tab 03/23/20 linagliptin 5 mg tablet 5 mg PO DAILY #90 tab 03/23/20 pantoprazole 40 mg tablet,delayed 40 mg PO BID@0730,1999 #180 tab 03/23/20 release amlodipine 2.5 mg tablet 2.5 mg PO DAILY #90 tab 04/15/20 buspirone 7.5 mg tablet 7.5 mg PO DAILY #90 tab 04/15/20 metoprolol succinate 25 mg 25 mg PO DAILY #90 tab 04/15/20 tablet,extended release 24 hr cephalexin 500 mg PO Q8H #20 tab 04/18/20 Allergies Allergy/AdvReac Type Severity Reaction Status Date / Time Morphine AdvReac Severe Agitation Uncoded 04/18/20 02:06 General Stated Complaint: GenMedical JOSH: 3 Review of Systems Narrative: Not obtained as patient unreliable historian/dementia per daughter. [facility] Medical History Anemia (Chronic) CAD (coronary artery disease) (Chronic) Carotid stenosis (Chronic) s/p bilateral CEA Chronic diastolic CHF (congestive heart failure) (Chronic) Chronic iron deficiency anemia (Acute) Chronic low back pain (Chronic) CKD (chronic kidney disease) (Chronic) COPD (chronic obstructive pulmonary disease) (Chronic) Depression with anxiety (Chronic) Diabetes mellitus (Chronic) 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 mellitus (Chronic) Diverticulitis (Acute) DNI (do not intubate) (Acute) DNR (do not resuscitate) (Acute) Eye irritation (Acute) Cellulitis per [employer] (Doxy & Eryth/Polymix/Steroid) Functional tremor (Chronic) GERD (gastroesophageal reflux disease) (Chronic) Gout (Chronic) Right foot, swelling/red/tender [ ] trial Rx History of pulmonary embolism (Chronic) Hyperlipidemia (Chronic) Hypertension (Chronic) Hypothyroidism (Chronic) Iron deficiency (Chronic) Moderate obstructive sleep apnea (Acute 01/21/20) with significant nocturnal hypoxemia 02/03/20 [facility] - CPAP ordered, f/u 04/2020 Obesity (BMI 30.0-34.9) (Chronic) DANYELLE (obstructive sleep apnea) (Chronic) Palliative care patient (Acute) Paroxysmal atrial fibrillation (Chronic) Peripheral vascular disease (Chronic) POLST (Physician Orders for Life-Sustaining Treatment) (Chronic) done with Terra Kebede [employer] on 11/21/19 DNR/DNI Renal mass (Acute) Rheumatoid arthritis (Chronic) 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 Other Heart disease Social History Smoking/Tobacco Use Status: Former Tobacco Use Alcohol Intake: never Drug use: Never Substance use type: does not use Adopted: No Foster care: No Household members: children Housing: house Number of Children: 3 Do you need help understanding health information?: Always current occupation: Retired; attends [employer] during the day Sexually active: No Do you think of yourself as: straight/heterosexual Current gender identity: female Seatbelt use: always Do you feel safe at home: Yes Do you feel safe in your relationship?: Yes Exam Narrative Exam Narrative: Vitals: Elevated blood pressure. Otherwise normal vitals and normal room air pulse ox. Const: Obese elderly female in NAD. HEENT: NC/AT. Normal facial exam. Eyes: PERRL and EOMI; no nystagmus Neck: Supple. Trachea midline. Lungs: Normal respiratory effort. Lungs with some rales/rhonchi at the bases. Chest wall tender to palpation across the upper chest. Cor: RRR without murmur/gallop. Good radial pulses. GI: Soft. NT/ND. No guarding or rebound. Neuro: A+O x 2. Normal speech, mentation. Cranial nerves II - XII grossly intact. No gross motor or sensory deficit. Ext: No C/C/E. Skin: Warm and dry without rash. Course Vital Signs Vital signs: Vital Signs Temperature 98.1 F 04/18/20 02:00 Pulse 61 04/18/20 02:00 Respiratory Rate 14 04/18/20 02:00 Blood Pressure 180/88 H 04/18/20 02:00 Pulse Oximetry 99 04/18/20 02:00 Temperature 98.1 F 04/18/20 02:00 Temperature Source Temporal Artery Scan 04/18/20 02:00 Pulse 61 04/18/20 02:00 Respiratory Rate 16 04/18/20 02:15 Respiratory Effort Non-Labored 04/18/20 02:15 Respiratory Depth Normal 04/18/20 02:15 Respiratory Pattern Normal 04/18/20 02:15 Blood Pressure 180/88 H 04/18/20 02:00 Blood Pressure Position Supine 04/18/20 02:00 Pulse Oximetry 99 04/18/20 02:00 Oxygen Delivery Method Nasal Cannula 04/18/20 02:00 Oxygen Flow Rate 3 04/18/20 02:00 Pain Level 8 04/18/20 02:00 Lab/Test Results Lab/Test Results: 04/18/20 03:00 Urine - Reflex from Ua Urine Culture - Pending Laboratory Tests Range/Units 04/18/20 04/18/20 03:00 03:05 WBC (4.4-10.8) 10^3/uL 11.16 H RBC (3.93-5.22) 10^6/uL 4.21 Hgb (11.2-15.7) g/dL 11.3 Hct (36.0-46.0) % 37.3 MCV (80-95) fL 88.6 MCH (27.0-33.0) pg 26.8 L MCHC (32.0-36.0) % 30.3 L RDW (11.7-14.6) % 15.7 H Plt Count (130-400) 10^3/uL 271 MPV (8.0-11.0) fL 10.4 Immature Gran % 0.6 Neutrophils % 74.6 Lymphocytes % 15.1 Monocytes % 5.7 Eosinophils % 3.6 Basophils % 0.4 Absolute Neutrophils (1.2-6.7) 10^3/uL 8.33 H Absolute Lymphocytes (1.2-3.4) 10^3/uL 1.69 Absolute Monocytes (0.1-0.8) 10^3/uL 0.64 Absolute Eosinophils (0.0-0.7) 10^3/uL 0.40 Absolute Basophils (0.0-0.2) 10^3/uL 0.04 Urine Color (Yellow) Yellow Urine Clarity (Clear) Clear Urine pH (5-8) 7.0 Ur Specific [place] (1.005-1.025) 1.020 Urine Protein (Negative) mg/dL 100 H Urine Ketones (Negative) mg/dL Negative Urine Blood (Negative) Trace-intact H Urine Nitrite (Negative) Negative Urine Bilirubin (Negative) Negative Urine Urobilinogen (Up TO 0.2) EU/dL 0.2 Ur Leukocyte Esterase (Negative) Small H Urine RBC (0-2) HPF 0-2 Urine WBC (0-5) HPF 10-20 H Ur Epithelial Cells (Negative) HPF Few Urine Crystals (Negative) HPF Negative Urine Bacteria (Negative) HPF Few Urine Casts (Negative) LPF Negative Urine Mucus (Negative) Negative Ur Culture Indicated? Yes Urine Glucose (Negative) mg/dL Negative
[2020-04-18 03:44] LABS: ALT 19 U/L (14-59); AST 15 U/L (15-37); Albumin 3.7 g/dL (3.4-5.0); Alkaline Phosphatase 98 U/L (46-116); Anion Gap 6.1 mmol/L (3-11); BUN 45 mg/dL (7-18); Bilirubin, Total 0.2 mg/dL (0.2-1.0); CO2 37.9 mmol/L (21.0-32.0); CREATININE 2.24 mg/dL (0.55-1.02); Calcium 9.3 mg/dL (8.5-10.1); Chloride 100 mmol/L (98-107); Glucose 175 mg/dL (74-106); Sodium 144 mmol/L (136-145); Total Protein 8.6 g/dL (6.4-8.2)
[2020-04-18 03:45] LABS: Troponin I < 0.05 ng/mL (<0.06)
--- NOTE | 2020-04-18 03:55 | DI.VRAD_ITS ---
PROCEDURE INFORMATION: Exam: CT Head Without Contrast Exam date and time: 04/18/2020 2:41 AM Age: 79 years old Clinical indication: Pain; Patient HX: Headache, dizziness, on eliquis TECHNIQUE: Imaging protocol: Computed tomography of the head without contrast. COMPARISON: No relevant prior studies available. FINDINGS: Brain: Left posterior parietal encephalomalacia. Deep white matter and periventricular hypoattenuation likely secondary to small vessel gliosis. There is no evidence of acute intracranial hemorrhage demonstrated on the examination. No evidence of acute cerebral ischemia. No mass effect or midline shift. The cortical sulci and subarachnoid cisterns are unremarkable. Ventricles: Normal. No ventriculomegaly. Bones/joints: Unremarkable. No acute calvarial fracture. Sinuses: Visualized sinuses are unremarkable. No fluid levels. Mastoid air cells: Visualized mastoid air cells are well aerated. Orbits: Scleral triston. Soft tissues: Unremarkable. Dental: Edentulous. IMPRESSION: 1. No acute intracranial hemorrhage or ischemia. 2. Chronic findings include probable small-vessel disease, left posterior parietal encephalomalacia and ocular postsurgical changes. Dictated and Authenticated by: Musa Singh MD. Ordering:ANTONIO Vasquez MD
--- NOTE | 2020-04-18 04:14 | DI.VRAD_ITS ---
PROCEDURE INFORMATION: Exam: XR Chest, 2 Views Exam date and time: 04/18/2020 3:26 AM Age: 79 years old Clinical indication: Chest pain; Patient HX: Cp TECHNIQUE: Imaging protocol: XR of the chest Views: 2 views. COMPARISON: CR XR CHEST 2V PA LATERAL 10/09/2019 10:01 AM FINDINGS: Lungs: No evidence of pneumonia. Pleural space: Unremarkable. No pleural effusion. No pneumothorax. Heart/Mediastinum: Overlying cardiac monitoring leads. Cardiac silhouette unchanged. Vasculature: Aortic vascular calcification. Bones/joints: Low thoracic spine degenerative changes. Soft tissues: Lower neck soft tissue postsurgical changes. IMPRESSION: Nonacute findings. Dictated and Authenticated by: Musa Singh MD. Ordering:ANTONIO Vasquez MD
== END 2020-04-18 04:45 | disposition home or self-care (01) ==
LOC: ER 04:48
PROVIDERS: Emergency Provider Emergency Medicine; PCP Student in an Organized Health Care Education/Training Program
DX: N39.0 Urinary tract infection, site not specified (principal); R51 Headache; R42 Dizziness and giddiness; R07.9 Chest pain, unspecified; E11.22 Type 2 diabetes mellitus with diabetic chronic kidney disease; Z79.01 Long term (current) use of anticoagulants; I12.9 Hypertensive chronic kidney disease with stage 1 through stage 4 chronic kidney disease, or unspecified chronic kidney disease; N18.9 Chronic kidney disease, unspecified; J44.9 Chronic obstructive pulmonary disease, unspecified; Z87.891 Personal history of nicotine dependence
CPT/HCPCS: 36415; 51701; 80053; 93005; 99285; 70450; 71046; 81003; 81015; 83735; 84484; 85025; 87086; 93010

== ENCOUNTER 2020-04-24 00:35 | Emergency (ER) | payer MEDICARE, MEDICAID, SELFPAY ==
--- NOTE | 2020-04-24 00:30 | RT.EKG_ITS ---
APPROVED REPORT Exam: Resting ECG Patient Location: E HR:69 bpm ECG Measurements Heart Rate 69 AXIS MA 194 P 57 QRSd 97 QRS -56 QT 427 T 62 QTc 459 Conclusion Sinus rhythm...normal P axis, V-rate 60- 99 Left anterior fascicular block...axis(240,-40), init forces inf There are no significant changes compared to prior EKG performed on 04/18/2020 at 02:11.
[2020-04-24 00:37] VITALS: BP 162/49; PULSE 72; RESP 20; TEMP 36.1; O2SAT 97
[2020-04-24 00:45] VITALS: RESP 20
--- NOTE | 2020-04-24 01:07 | ED.GENADUL_ITS ---
Discharge Plan Disposition Patient Disposition: HOME Condition: Good Discharge Details Chief Complaint: Chest Pain Clinical Impression: Chest wall pain Primary Care Provider: Kristal Quiñonez ED Provider: Pedro Nichole Greeley Meds and New Rx's Prescriptions: Continued isosorbide dinitrate 30 mg tablet 30 mg PO BID Qty: 60 RF: 5 (DME) incentive spirometer Qty: 1 RF: 0 atorvastatin 40 mg tablet 40 mg PO DAILY Qty: 90 RF: 3 gabapentin 100 mg capsule 200 mg PO BID RF: 0 melatonin 3 mg tablet 3 mg PO HS PRNRF: 0 (DME) Oxygen Tank See Rx Instructions .ROUTE .MEDSUPPLY Qty: 1 RF: 0 albuterol sulfate 90 mcg/actuation HFA aerosol inhaler 2 puff IH Q6H PRNRF: 0 (DME) pen needle, diabetic [BD Ultra-Fine Mini Pen Needle] 31 gauge x 3/16 needle See Rx Instructions .ROUTE .MEDSUPPLY Qty: 200 RF: 3 (DME) pen needle, diabetic [BD Ultra-Fine Mini Pen Needle] 31 gauge x 3/16 needle See Rx Instructions .ROUTE .MEDSUPPLY Qty: 300 RF: 3 (DME) Portable Oxygen System Qty: 1 RF: 0 fluticasone propion-salmeterol [Advair Diskus] 250-50 mcg/dose blister with device 1 inh IH BID RF: 0 levothyroxine 75 mcg capsule 75 mcg PO DAILY RF: 0 apixaban 2.5 mg tablet 2.5 mg PO BID Qty: 60 RF: 3 paroxetine HCl [Paxil] 20 mg tablet 20 mg PO DAILY Qty: 90 RF: 3 trazodone 50 mg tablet 50 mg PO HS PRN (Reason: insomnia) Qty: 30 RF: 1 CPAP inhalation RF: 0 hydralazine 25 mg tablet 25 mg PO TID Qty: 270 RF: 3 pantoprazole 40 mg tablet,delayed release (DR/EC) 40 mg PO BID@0730,1999 Qty: 180 RF: 3 amlodipine [Norvasc] 2.5 mg tablet 2.5 mg PO DAILY Qty: 90 RF: 3 buspirone 7.5 mg tablet 7.5 mg PO DAILY Qty: 90 RF: 0 metoprolol succinate 25 mg tablet extended release 24 hr 25 mg PO DAILY Qty: 90 RF: 3 cholecalciferol (vitamin D3) 1,000 unit Capsule 1,000 unit PO DAILY RF: 0 ferrous sulfate 325 mg (65 mg iron) Tablet 325 mg PO DAILY RF: 0 nitroglycerin [Nitrostat] 0.4 mg Tablet, Sublingual 0.4 mg SUBLINGUAL Q5M PRNRF: 0 dicyclomine 20 mg Tablet 20 mg PO DAILY PRNRF: 0 Albuterol-Ipatropium 0.5 mg 3 ml inhalation 4-6XD PRN (Reason: shortness of breath/wheezing) Qty: 60 RF: 0 acetaminophen [Tylenol] 325 mg Tablet 650 mg PO Q6H Qty: 0 RF: 0 allopurinol 100 mg tablet 100 mg DAILY RF: 0 insulin glargine 100 unit/mL (3 mL) insulin pen 40 unit subcut BID MDD 120 units RF: 0 cephalexin 500 mg tablet 500 mg PO Q8H Qty: 20 RF: 0 sucralfate 1 gram Tablet 1 g PO QACHS RF: 0 furosemide 40 mg tablet 40 mg PO DAILY RF: 0 Discharge Instructions Additional Instructions: This chest pain that you continue to have on and off appears to be chest wall pain and is reproducible. Your EKGs have remained unchanged. Your troponins remain negative. Would try Tylenol in the future for pain. Follow-up with primary care on the as planned. Return to ED for fever, cough, shortness of breath, new or worsening chest pain. Referrals: Kristal Quiñonez DO [Primary Care Provider] - Medical Decision Making Patient presenting with chest pain. Seen by me last week with similar complaint in addition to episode of dizziness lightheadedness. Chest x-ray cardiac work- up at that time negative. She is on Keflex for urine infection. There is been no reported fever. There is no cough or shortness of breath. Lungs are clear. Chest pain is reproducible. EKG on arrival is unchanged from EKG done last week. I do not think patient requires repeat full work-up. We will plan to troponins and repeat EKG and if negative home. Tylenol for pain. Patient does have a COLST form. Patient confirms DNR and DNI. She, however, does not remember agreeing to no transfer to hospital. I called and spoke to her daughter, Fina, who is her practice advisor at this time. She also reports that she was unaware of the no transport order. They feel that this is not what they would agree to. Their feeling is they want no heroic measures at this time but that they still want her seen and treated if necessary. 05:00 - Patient has been sleeping here. Abdomen stable. And second troponin negative. Repeat EKG unchanged. Tylenol seems to have helped. She is safe for discharge home with her daughter. Recommend Tylenol as needed for recurrent chest wall pain as I do not think this is cardiac chest pain at all. She has follow-up with primary care on the . Return to ED for fever, cough, new or worsening pain, shortness of breath. HPI General Mode of arrival: EMS . Date/Time Provider Initiated Documentation: 04/24/20 01:06 . Limitations to Documentation: no limitations . Information obtained by: patient, family, EMS, RN notes reviewed and old records reviewed . HPI Narrative: Patient presents to ED with complaint of chest pain across her upper chest. Patient seen by me on the with similar complaints although her daughter sent her in because of dizziness. She also had a visit to [facility] on the with shoulder and chest pain. She woke up complaining of chest pain again tonight. She describes it as going from one shoulder to the other across to her upper chest. She denies fever, cough, shortness of breath. She is stable on her 3 L nasal cannula oxygen. She denies abdominal pain, vomiting or diarrhea. She was given nitroglycerin by her daughter at home. EMS discovered that this was and gave her nitroglycerin that they had. They report that the pain was reproducible but did seem to respond to nitroglycerin. She received aspirin. She was transported here. Related Data Home Medications Medication Instructions Recorded Confirmed cholecalciferol (vitamin D3) 1,000 unit PO DAILY 05/20/19 04/24/20 dicyclomine 20 mg PO DAILY PRN 05/20/19 04/24/20 ferrous sulfate 325 mg PO DAILY 05/20/19 04/24/20 nitroglycerin [Nitrostat] 0.4 mg SUBLINGUAL Q5M PRN 05/20/19 04/24/20 Albuterol-Ipatropium 3 ml INHALATION 4-6XD PRN #60 each 05/26/19 04/24/20 acetaminophen [Tylenol] 650 mg PO Q6H #0 tab 07/24/19 04/24/20 fluticasone 250 mcg-salmeterol 50 1 inh IH BID 10/02/19 04/18/20 mcg/dose blistr powdr for inhalation levothyroxine 75 mcg capsule 75 mcg PO DAILY 10/02/19 04/24/20 Oxygen #1 each 10/03/19 04/24/20 albuterol sulfate 90 mcg/actuation 2 puff IH Q6H PRN 10/03/19 04/24/20 aerosol inhaler gabapentin 100 mg capsule 200 mg PO BID cap 10/03/19 04/24/20 melatonin 3 mg tablet 3 mg PO HS PRN 10/03/19 04/24/20 isosorbide dinitrate 30 mg tablet 30 mg PO BID #60 tab 10/10/19 04/24/20 Portable Oxygen System #1 ea 10/24/19 04/24/20 pen needle, diabetic 31 gauge x #200 each 10/24/19 04/24/2011/16 pen needle, diabetic 31 gauge x #300 each 10/24/19 04/24/2011/16 apixaban 2.5 mg tablet 2.5 mg PO BID #60 tab 12/03/19 04/24/20 incentive spirometer #1 ea 01/02/20 04/24/20 paroxetine HCl 20 mg tablet 20 mg PO DAILY #90 tab 01/20/20 04/24/20 trazodone 50 mg tablet 50 mg PO HS PRN #30 tab 01/20/20 04/24/20 CPAP INHALATION 02/04/20 03/28/20 atorvastatin 40 mg tablet 40 mg PO DAILY #90 tab 02/06/20 04/24/20 hydralazine 25 mg tablet 25 mg PO TID #270 tab 03/23/20 04/24/20 pantoprazole 40 mg tablet,delayed 40 mg PO BID@0730,1999 #180 tab 03/23/20 04/24/20 release amlodipine 2.5 mg tablet 2.5 mg PO DAILY #90 tab 04/15/20 04/24/20 buspirone 7.5 mg tablet 7.5 mg PO DAILY #90 tab 04/15/20 04/24/20 metoprolol succinate 25 mg 25 mg PO DAILY #90 tab 04/15/20 04/24/20 tablet,extended release 24 hr allopurinol 100 mg DAILY 04/18/20 04/24/20 cephalexin 500 mg PO Q8H #20 tab 04/18/20 04/24/20 insulin glargine 40 unit SUBCUT BID MDD 120 units 04/18/20 04/24/20 furosemide 40 mg PO DAILY 04/24/20 04/24/20 sucralfate 1 g PO QACHS 04/24/20 04/24/20 Previous Rx's Medication Instructions Recorded Albuterol-Ipatropium 3 ml INHALATION 4-6XD PRN #60 each 05/26/19 acetaminophen [Tylenol] 650 mg PO Q6H #0 tab 07/24/19 isosorbide dinitrate 30 mg tablet 30 mg PO BID #60 tab 10/10/19 Portable Oxygen System #1 ea 10/24/19 pen needle, diabetic 31 gauge x #200 each 10/24/1911/16 pen needle, diabetic 31 gauge x #300 each 10/24/1911/16 apixaban 2.5 mg tablet 2.5 mg PO BID #60 tab 12/03/19 incentive spirometer #1 ea 01/02/20 paroxetine HCl 20 mg tablet 20 mg PO DAILY #90 tab 01/20/20 trazodone 50 mg tablet 50 mg PO HS PRN #30 tab 01/20/20 atorvastatin 40 mg tablet 40 mg PO DAILY #90 tab 02/06/20 hydralazine 25 mg tablet 25 mg PO TID #270 tab 03/23/20 pantoprazole 40 mg tablet,delayed 40 mg PO BID@0730,2000 #180 tab 03/23/20 release amlodipine 2.5 mg tablet 2.5 mg PO DAILY #90 tab 04/15/20 buspirone 7.5 mg tablet 7.5 mg PO DAILY #90 tab 04/15/20 metoprolol succinate 25 mg 25 mg PO DAILY #90 tab 04/15/20 tablet,extended release 24 hr cephalexin 500 mg PO Q8H #20 tab 04/18/20 Allergies Allergy/AdvReac Type Severity Reaction Status Date / Time Morphine AdvReac Severe Agitation Uncoded 04/24/20 00:56 General Stated Complaint: Chest Pain JOSH: 2 Review of Systems Narrative: As documented in HPI otherwise negative as below. Const: no fever, chills, weakness Resp: no cough, SOB, pleuritic pain CV: no diaphoresis, edema, syncope GI: no abdominal pain, nausea, vomiting, diarrhea Neuro: no headache, numbness, focal weakness [facility] Medical History Anemia (Chronic) CAD (coronary artery disease) (Chronic) Carotid stenosis (Chronic) s/p bilateral CEA Chronic diastolic CHF (congestive heart failure) (Chronic) Chronic iron deficiency anemia (Acute) Chronic low back pain (Chronic) CKD (chronic kidney disease) (Chronic) COPD (chronic obstructive pulmonary disease) (Chronic) Depression with anxiety (Chronic) Diabetes mellitus (Chronic) 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 mellitus (Chronic) Diverticulitis (Acute) DNI (do not intubate) (Acute) DNR (do not resuscitate) (Acute) Eye irritation (Acute) Cellulitis per Opto (Doxy & Eryth/Polymix/Steroid) Functional tremor (Chronic) GERD (gastroesophageal reflux disease) (Chronic) Gout (Chronic) Right foot, swelling/red/tender [ ] trial Rx History of pulmonary embolism (Chronic) Hyperlipidemia (Chronic) Hypertension (Chronic) Hypothyroidism (Chronic) Iron deficiency (Chronic) Moderate obstructive sleep apnea (Acute 01/21/20) with significant nocturnal hypoxemia 02/03/20 [facility] - CPAP ordered, f/u 04/2020 Obesity (BMI 30.0-34.9) (Chronic) DANYELLE (obstructive sleep apnea) (Chronic) Palliative care patient (Acute) Paroxysmal atrial fibrillation (Chronic) Peripheral vascular disease (Chronic) POLST (Physician Orders for Life-Sustaining Treatment) (Chronic) done with Terra Kebede [employer]SEL[employer] on 11/21/19 DNR/DNI Renal mass (Acute) Rheumatoid arthritis (Chronic) 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 Other Heart disease Social History Smoking/Tobacco Use Status: Former Tobacco Use Alcohol Intake: never Drug use: Never Substance use type: does not use Adopted: No Foster care: No Household members: children Housing: house Number of Children: 3 Do you need help understanding health information?: Always current occupation: Retired; attends [employer] during the day Sexually active: No Do you think of yourself as: straight/heterosexual Current gender identity: female Seatbelt use: always Do you feel safe at home: Yes Do you feel safe in your relationship?: Yes Exam Narrative Exam Narrative: Vitals: Afebrile. Elevated blood pressure otherwise normal vitals normal saturation on her baseline oxygen. Const: Obese elderly female in NAD. HEENT: NC/AT. Normal facial exam. Eyes: Normal conjunctiva and sclera. Neck: Supple. Trachea midline. Lungs: Normal respiratory effort. Lungs are clear. Chest wall tender to palpation across upper chest and reproduces patient's pain. Cor: RRR with murmur. Good radial pulses. GI: Soft. NT/ND. No guarding or rebound. Neuro: A+O x 3. Normal speech, mentation. Cranial nerves II - XII grossly intact. No gross motor or sensory deficit. Ext: No C/C/E. Skin: Warm and dry. Course Vital Signs Vital signs: Vital Signs Temperature 97.0 F L 04/24/20 00:37 Pulse 72 04/24/20 00:37 Respiratory Rate 20 04/24/20 00:37 Blood Pressure 162/49 H 04/24/20 00:37 Pulse Oximetry 97 04/24/20 00:37 Temperature 97.0 F L 04/24/20 00:37 Temperature Source Tympanic 04/24/20 00:37 Pulse 72 04/24/20 00:37 Respiratory Rate 20 04/24/20 00:45 Respiratory Effort Non-Labored 04/24/20 00:45 Respiratory Depth Normal 04/24/20 00:45 Respiratory Pattern Normal 04/24/20 00:45 Blood Pressure 162/49 H 04/24/20 00:37 Pulse Oximetry 97 04/24/20 00:37 Oxygen Delivery Method Nasal Cannula 04/24/20 00:37 Oxygen Flow Rate 3 04/24/20 00:37 Pain Level 8 04/24/20 00:45
[2020-04-24] MEDS: Acetaminophen 500 MG TAB 1000 MG PO (01:10)
--- NOTE | 2020-04-24 01:17 | NUR.NOTE ---
Nursing Note: Assisted patient to commode, ambulated well short distance.
[2020-04-24 01:37] LABS: Troponin I < 0.05 ng/mL (<0.06)
--- NOTE | 2020-04-24 02:17 | NUR.NOTE ---
Nursing Note: Patient resting comfortably on bed, waiting for 0400 blood draw.
--- NOTE | 2020-04-24 03:45 | RT.EKG_ITS ---
APPROVED REPORT Exam: Resting ECG Patient Location: E HR:62 bpm ECG Measurements Heart Rate 62 AXIS NE 41 P 31 QRSd 100 QRS -55 QT 463 T 55 QTc 471 Conclusion Sinus rhythm...normal P axis, V-rate 60- 99 Left anterior fascicular block...axis(240,-40), init forces inf There are no significant changes compared to prior EKG performed on 04/24/2020 at 00:51.
[2020-04-24 04:36] LABS: Troponin I < 0.05 ng/mL (<0.06)
[2020-04-24 04:53] VITALS: BP 129/44; PULSE 60; RESP 18; O2SAT 96
--- NOTE | 2020-04-24 05:04 | NUR.NOTE ---
Nursing Note: Notified John, patient's daughter, that she was being discharged and was feeling much better.
== END 2020-04-24 05:35 | disposition home or self-care (01) ==
PROVIDERS: Emergency Provider Emergency Medicine; PCP Student in an Organized Health Care Education/Training Program
DX: R07.81 Pleurodynia (principal); R42 Dizziness and giddiness; I25.10 Atherosclerotic heart disease of native coronary artery without angina pectoris; Z95.5 Presence of coronary angioplasty implant and graft; I12.9 Hypertensive chronic kidney disease with stage 1 through stage 4 chronic kidney disease, or unspecified chronic kidney disease; N18.9 Chronic kidney disease, unspecified; E11.22 Type 2 diabetes mellitus with diabetic chronic kidney disease; J44.9 Chronic obstructive pulmonary disease, unspecified; Z87.891 Personal history of nicotine dependence
CPT/HCPCS: 36415; 93005; 99283; 84484; 93010

== ENCOUNTER 2020-04-27 01:14 | Outpatient (RCR) | payer MEDICARE, MEDICAID, SELFPAY ==
[2020-04-21] MEDS: IRON SUCROSE COMPLEX 300 MG in Normal Saline 250 ML 176.667 MG IVPB (12:24)
[2020-04-21] MEDS: Normal Saline Flush 10 ML SYR IVP (12:24)
[2020-04-27] MEDS: Normal Saline Flush 10 ML SYR IVP (12:50)
[2020-04-27] MEDS: IRON SUCROSE COMPLEX 300 MG in Normal Saline 250 ML 176.667 MG IVPB (12:50)
[2020-04-27 13:02] LABS: HCT 31.1 % (36.0-46.0); HGB 9.3 g/dL (11.2-15.7); MCH 26.7 pg (27.0-33.0); MCHC 29.9 % (32.0-36.0); MCV 89.4 fL (80-95); MPV 10.6 fL (8.0-11.0); Platelet Count 224 10^3/uL (130-400); RBC 3.48 10^6/uL (3.93-5.22); RDW 15.7 % (11.7-14.6); RDW-SD 51.4 fL; WBC 9.43 10^3/uL (4.4-10.8)
[2020-04-27 13:09] LABS: Anion Gap 2.2 mmol/L (3-11); BUN 51 mg/dL (7-18); CO2 35.8 mmol/L (21.0-32.0); CREATININE 2.17 mg/dL (0.55-1.02); Calcium 9.6 mg/dL (8.5-10.1); Chloride 102 mmol/L (98-107); Estimated GFR 21.99 (mL/min/1.73m2); Glucose 256 mg/dL (74-106); Potassium 4.2 mmol/L (3.5-5.1); Sodium 140 mmol/L (136-145)
[2020-04-28 10:35] LABS: Hemoglobin A1C 7.5 % (3.8-5.6)
== END 2020-05-03 23:59 | disposition home or self-care (01) ==
LOC: INF 01:14
PROVIDERS: PCP Student in an Organized Health Care Education/Training Program; Visit Provider Internal Medicine
DX: N18.4 Chronic kidney disease, stage 4 (severe); D63.1 Anemia in chronic kidney disease; E11.22 Type 2 diabetes mellitus with diabetic chronic kidney disease; D50.9 Iron deficiency anemia, unspecified
CPT/HCPCS: 36415; 80048; 85027; 93005; 96365; 96366; 99283; 83036; 84484; J1756

== ENCOUNTER 2020-04-29 16:23 | Emergency (ER) | payer MEDICARE, MEDICAID, SELFPAY ==
[2020-04-29 16:20] VITALS: O2SAT 98
[2020-04-29 16:23] VITALS: BP 130/48; PULSE 62; RESP 16; TEMP 36.7; O2SAT 99
--- NOTE | 2020-04-29 16:30 | RT.EKG_ITS ---
APPROVED REPORT Exam: Resting ECG Patient Location: E HR:60 bpm ECG Measurements Heart Rate 60 AXIS MA 86 P 0 QRSd 100 QRS -49 QT 483 T 8 QTc 481 Conclusion Sinus rhythm...normal P axis, V-rate 60 Left anterior fascicular block. poor baseline, no st elevation
--- NOTE | 2020-04-29 16:30 | DI.CT_ITS ---
EXAM: CT HEAD WO CLINICAL HISTORY: R arm tremors TECHNIQUE: COMPARISON: CT CT HEAD WO from 04/18/2020 FINDINGS: Noncontrast cranial CT was performed. 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 There is no evidence of acute intracranial hemorrhage, mass effect, or m idline shift. The orbital and temporal bone structures appear intact. Paranasal sinuses and mastoid air cells are well aerated as visualized. IMPRESSION: No evidence of acute intracranial process. RADIATION DOSE DELIVERED: 722.42mGy.cm Total DLP
--- NOTE | 2020-04-29 16:35 | ED.GENADUL_ITS ---
Discharge Plan Disposition Patient Disposition: HOME Condition: Stable Discharge Details Chief Complaint: GenMedical Clinical Impression: Functional tremor Primary Care Provider: Kristal Quiñonez ED Provider: Kristian Brian Home Meds and New Rx's Prescriptions: Continued (DME) incentive spirometer Qty: 1 RF: 0 atorvastatin 40 mg tablet 40 mg PO DAILY Qty: 90 RF: 3 gabapentin 100 mg capsule 200 mg PO BID RF: 0 melatonin 3 mg tablet 3 mg PO HS PRNRF: 0 (DME) Oxygen Tank See Rx Instructions .ROUTE .MEDSUPPLY Qty: 1 RF: 0 albuterol sulfate 90 mcg/actuation HFA aerosol inhaler 2 puff IH Q6H PRNRF: 0 (DME) pen needle, diabetic [BD Ultra-Fine Mini Pen Needle] 31 gauge x 3/16 needle See Rx Instructions .ROUTE .MEDSUPPLY Qty: 200 RF: 3 (DME) pen needle, diabetic [BD Ultra-Fine Mini Pen Needle] 31 gauge x 3/16 needle See Rx Instructions .ROUTE .MEDSUPPLY Qty: 300 RF: 3 (DME) Portable Oxygen System Qty: 1 RF: 0 fluticasone propion-salmeterol [Advair Diskus] 250-50 mcg/dose blister with device 1 inh IH BID RF: 0 levothyroxine 75 mcg capsule 75 mcg PO DAILY RF: 0 apixaban 2.5 mg tablet 2.5 mg PO BID Qty: 60 RF: 3 paroxetine HCl [Paxil] 20 mg tablet 20 mg PO DAILY Qty: 90 RF: 3 trazodone 50 mg tablet 50 mg PO HS PRN (Reason: insomnia) Qty: 30 RF: 1 CPAP inhalation RF: 0 hydralazine 25 mg tablet 25 mg PO TID Qty: 270 RF: 3 pantoprazole 40 mg tablet,delayed release (DR/EC) 40 mg PO BID@07,1999 Qty: 180 RF: 3 amlodipine [Norvasc] 2.5 mg tablet 2.5 mg PO DAILY Qty: 90 RF: 3 buspirone 7.5 mg tablet 7.5 mg PO DAILY Qty: 90 RF: 0 metoprolol succinate 25 mg tablet extended release 24 hr 25 mg PO DAILY Qty: 90 RF: 3 isosorbide dinitrate 30 mg tablet 30 mg PO BID Qty: 60 RF: 5 nitroglycerin [Nitrostat] 0.4 mg tablet, sublingual 0.4 mg SUBLINGUAL Q5M PRN (Reason: chest pain) Qty: 50 RF: 5 cholecalciferol (vitamin D3) 1,000 unit Capsule 1,000 unit PO DAILY RF: 0 ferrous sulfate 325 mg (65 mg iron) Tablet 325 mg PO DAILY RF: 0 dicyclomine 20 mg Tablet 20 mg PO DAILY PRNRF: 0 Albuterol-Ipatropium 0.5 mg 3 ml inhalation 4-6XD PRN (Reason: shortness of breath/wheezing) Qty: 60 RF: 0 acetaminophen [Tylenol] 325 mg Tablet 650 mg PO Q6H Qty: 0 RF: 0 allopurinol 100 mg tablet 100 mg DAILY RF: 0 insulin glargine 100 unit/mL (3 mL) insulin pen 40 unit subcut BID MDD 120 units RF: 0 sucralfate 1 gram Tablet 1 g PO QACHS RF: 0 furosemide 40 mg tablet 40 mg PO DAILY RF: 0 Discontinued cephalexin 500 mg tablet 500 mg PO Q8H Qty: 20 RF: 0 Discharge Instructions Additional Instructions: You have a functional tremor. Physical therapy can oftentimes assist in helping this. Sometimes underlying stress can exacerbate this as well. Your sleep study revealed that you should continue to sleep with CPAP and maintained 3 L of oxygen at home. We will ask our care management team to arrange a follow-up for you in neurology clinic as there may be some other medications which may help your tremor. You no longer have evidence of a urinary tract infection. Return if you have a fever, change to mental status, or any other acute concerns. Stand Alone Forms: Physical Therapy Referral Medical Decision Making 79-year-old female presents via EMS. She complains of worsening right upper e xtremity tremors today. She has not had a headache, vomiting, fall or injury. Past medical history is notable for diagnosis of functional tremor, previous stroke, paroxysmal atrial fibrillation, diabetes. She is anticoagulated currently taking apixaban. She arrives to the ED alert, pleasant, no acute distress. Her blood pressure is 130/48, pulse is 62 and she is afebrile with normal oxygenation. I reviewed her neurology notes with a diagnosis of functional tremor. Unclear whether her underlying stressors have been exacerbated. Differential diagnosis includes intracranial hemorrhage or bleed, mass, seizure, electrolyte derangement, functional tremor, and would consider UTI. Given her history of previous stroke, current anticoagulation, she is referred for CT scan of the head as well as laboratory and urinalysis. She was treated with Keflex for urinary tract infection April 18. Culture was unrevealing from that date. Today: CBC with white count 11, hematocrit 36, platelets 239. Sodium 139, potassium 4.4, chloride 99, bicarb 33. BUN 51, creatinine 1.9. She has known chronic renal insufficiency. Urinalysis unremarkable. CT scan of the head with senescent changes, no other acute findings. Discussed findings with patient and her daughter. I will prescribe physical therapy for her functional tremor. She is stable at this time. HPI General Mode of arrival: EMS . Date/Time Provider Initiated Documentation: 04/29/20 16:56 . Limitations to Documentation: no limitations . Information obtained by: patient and EMS . History of Present Illness 79 year old F presents to the emergency department with the chief complaint of Tremors right upper extremity, described as moderate and similar to prior episodes, and is localized to the right. Patient reports no radiation. Patient started experiencing this hour(s) and it has been intermittent. No relieving factors improve symptom(s), No exacerbating factors reported . Patient did receive the following treatments prior to arrival, none Related Data Home Medications Medication Instructions Recorded Confirmed cholecalciferol (vitamin D3) 1,000 unit PO DAILY 05/20/19 04/29/20 dicyclomine 20 mg PO DAILY PRN 05/20/19 04/29/20 ferrous sulfate 325 mg PO DAILY 05/20/19 04/29/20 Albuterol-Ipatropium 3 ml INHALATION 4-6XD PRN #60 each 05/26/19 04/29/20 acetaminophen [Tylenol] 650 mg PO Q6H #0 tab 07/24/19 04/29/20 fluticasone 250 mcg-salmeterol 50 1 inh IH BID 10/02/19 04/29/20 mcg/dose blistr powdr for inhalation levothyroxine 75 mcg capsule 75 mcg PO DAILY 10/02/19 04/29/20 Oxygen #1 each 10/03/19 04/28/20 albuterol sulfate 90 mcg/actuation 2 puff IH Q6H PRN 10/03/19 04/29/20 aerosol inhaler gabapentin 100 mg capsule 200 mg PO BID cap 10/03/19 04/29/20 melatonin 3 mg tablet 3 mg PO HS PRN 10/03/19 04/29/20 Portable Oxygen System #1 ea 10/24/19 04/28/20 pen needle, diabetic 31 gauge x #200 each 10/24/19 04/28/2011/16 pen needle, diabetic 31 gauge x #300 each 10/24/19 04/28/2011/16 apixaban 2.5 mg tablet 2.5 mg PO BID #60 tab 12/03/19 04/29/20 incentive spirometer #1 ea 01/02/20 04/28/20 paroxetine HCl 20 mg tablet 20 mg PO DAILY #90 tab 01/20/20 04/29/20 trazodone 50 mg tablet 50 mg PO HS PRN #30 tab 01/20/20 04/29/20 CPAP INHALATION 02/04/20 04/28/20 atorvastatin 40 mg tablet 40 mg PO DAILY #90 tab 02/06/20 04/29/20 hydralazine 25 mg tablet 25 mg PO TID #270 tab 03/23/20 04/29/20 pantoprazole 40 mg tablet,delayed 40 mg PO BID@0730,2000 #180 tab 03/23/20 04/29/20 release amlodipine 2.5 mg tablet 2.5 mg PO DAILY #90 tab 04/15/20 04/29/20 buspirone 7.5 mg tablet 7.5 mg PO DAILY #90 tab 04/15/20 04/29/20 metoprolol succinate 25 mg 25 mg PO DAILY #90 tab 04/15/20 04/29/20 tablet,extended release 24 hr allopurinol 100 mg DAILY 04/18/20 04/29/20 insulin glargine 40 unit SUBCUT BID MDD 120 units 04/18/20 04/29/20 furosemide 40 mg PO DAILY 04/24/20 04/29/20 sucralfate 1 g PO QACHS 04/24/20 04/29/20 isosorbide dinitrate 30 mg tablet 30 mg PO BID #60 tab 04/26/20 04/29/20 nitroglycerin 0.4 mg sublingual 0.4 mg SUBLINGUAL Q5M PRN #50 tab 04/26/20 04/29/20 tablet Previous Rx's Medication Instructions Recorded Albuterol-Ipatropium 3 ml INHALATION 4-6XD PRN #60 each 05/26/19 acetaminophen [Tylenol] 650 mg PO Q6H #0 tab 07/24/19 Portable Oxygen System #1 ea 10/24/19 pen needle, diabetic 31 gauge x #200 each 10/24/1911/16 pen needle, diabetic 31 gauge x #300 each 10/24/1911/16 apixaban 2.5 mg tablet 2.5 mg PO BID #60 tab 12/03/19 incentive spirometer #1 ea 01/02/20 paroxetine HCl 20 mg tablet 20 mg PO DAILY #90 tab 01/20/20 trazodone 50 mg tablet 50 mg PO HS PRN #30 tab 01/20/20 atorvastatin 40 mg tablet 40 mg PO DAILY #90 tab 02/06/20 hydralazine 25 mg tablet 25 mg PO TID #270 tab 03/23/20 pantoprazole 40 mg tablet,delayed 40 mg PO BID@07,1999 #180 tab 03/23/20 release amlodipine 2.5 mg tablet 2.5 mg PO DAILY #90 tab 04/15/20 buspirone 7.5 mg tablet 7.5 mg PO DAILY #90 tab 04/15/20 metoprolol succinate 25 mg 25 mg PO DAILY #90 tab 04/15/20 tablet,extended release 24 hr isosorbide dinitrate 30 mg tablet 30 mg PO BID #60 tab 04/26/20 nitroglycerin 0.4 mg sublingual 0.4 mg SUBLINGUAL Q5M PRN #50 tab 04/26/20 tablet Allergies Allergy/AdvReac Type Severity Reaction Status Date / Time Morphine AdvReac Severe Agitation Uncoded 04/29/20 16:32 General Stated Complaint: GenMedical JOSH: 3 Review of Systems Narrative: Denies headache or fall. States that she has had tremors for quite some time. Denies any pain to me. 6 systems reviewed and otherwise negative FORMERLY [facility], [facility] Medical History Anemia (Chronic) CAD (coronary artery disease) (Chronic) Carotid stenosis (Chronic) s/p bilateral CEA Chronic diastolic CHF (congestive heart failure) (Chronic) Chronic iron deficiency anemia (Acute) Chronic low back pain (Chronic) CKD (chronic kidney disease) (Chronic) COPD (chronic obstructive pulmonary disease) (Chronic) Depression with anxiety (Chronic) Diabetes mellitus (Chronic) 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 mellitus (Chronic) Diverticulitis (Acute) DNI (do not intubate) (Acute) DNR (do not resuscitate) (Acute) Eye irritation (Acute) Cellulitis per [employer] (Doxy & Eryth/Polymix/Steroid) Functional tremor (Chronic) GERD (gastroesophageal reflux disease) (Chronic) Gout (Chronic) Right foot, swelling/red/tender [ ] trial Rx History of pulmonary embolism (Chronic) Hyperlipidemia (Chronic) Hypertension (Chronic) Hypothyroidism (Chronic) Iron deficiency (Chronic) Moderate obstructive sleep apnea (Acute 01/21/20) with significant nocturnal hypoxemia 02/03/20 Sleep Clinic - CPAP ordered, f/u 04/2020 Obesity (BMI 30.0-34.9) (Chronic) DANYELLE (obstructive sleep apnea) (Chronic) Palliative care patient (Acute) Paroxysmal atrial fibrillation (Chronic) Peripheral vascular disease (Chronic) POLST (Physician Orders for Life-Sustaining Treatment) (Chronic) done with Terra Kebede HYDROCRANE OPERATOR on 11/21/19 DNR/DNI Renal mass (Acute) Rheumatoid arthritis (Chronic) 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 Other Heart disease Social History Smoking/Tobacco Use Status: Former Tobacco Use Alcohol Intake: never Drug use: Never Substance use type: does not use Adopted: No Foster care: No Household members: children Housing: house Number of Children: 3 Do you need help understanding health information?: Always current occupation: Retired; attends [employer] during the day Sexually active: No Do you think of yourself as: straight/heterosexual Current gender identity: female Seatbelt use: always Do you feel safe at home: Yes Do you feel safe in your relationship?: Yes Exam Narrative Exam Narrative: GEN: awake, alert, oriented to person and place. Pleasant, well groomed, interactive. HEAD: Normocephalic, atraumatic ENT: Mucous membranes moist, oropharynx unremarkable, External ear exam unremarkable EYES: PERRL, EOMI NECK: Full ROM, no RAUL, no menigismus CHEST/RESP: Nontender, clear to auscultation bilateral, no wheeze/rhonchi/rales CARDIOVASCULAR: RRR, no murmur, rub chrissie. 2+ Rad pulse bilateral ABDOMEN: Soft, nontender, no mass. +Bowel sounds EXT: Full ROM, no edema, no rash Neuro: Grossly normal neurologic exam, conversant, interactive. Moves all 4 extremities without difficulty. Intermittent right upper extremity tremor that self extinguishes. Patient interactive throughout. Psych: Speech fluent, thoughts congruent, affect normal Course Vital Signs Vital signs: Vital Signs Temperature 36.7 C 04/29/20 16:23 Pulse 62 04/29/20 16:23 Respiratory Rate 16 04/29/20 16:23 Blood Pressure 130/48 L 04/29/20 16:23 Pulse Oximetry 99 04/29/20 16:23 Temperature 36.7 C 04/29/20 16:23 Temperature Source Temporal Artery Scan 04/29/20 16:23 Pulse 62 04/29/20 16:23 Respiratory Rate 16 04/29/20 16:23 Respiratory Effort Non-Labored 04/29/20 16:34 Blood Pressure 130/48 L 04/29/20 16:23 Blood Pressure Position Supine 04/29/20 16:23 Pulse Oximetry 99 04/29/20 16:23 Oxygen Delivery Method Nasal Cannula 04/29/20 16:23 Oxygen Flow Rate 3 04/29/20 16:23 Pain Level 0 04/29/20 16:23
[2020-04-29 16:46] LABS: Bilirubin Negative (Negative); Blood Negative (Negative); Clarity Clear (Clear); Glucose Negative (Negative); Ketones Negative (Negative); Leukocyte Esterase Moderate (Negative); Nitrite Negative (Negative); Urobilinogen 0.2 EU/dL (Up TO 0.2); pH 5.5 (5-8)
[2020-04-29] MEDS: Normal Saline Flush 10 ML SYR IVP (16:50)
[2020-04-29] MEDS: Normal Saline 1,000 ML 150 ML IV (16:50)
[2020-04-29 16:56] LABS: Bacteria Negative HPF (Negative); Crystals Negative HPF (Negative); Epithelial Cells Many HPF (Negative); Mucus Negative (Negative); Other Cells Mod Transitional (Negative); RBC Negative HPF (0-2); WBC >50 HPF (0-5)
[2020-04-29 16:57] LABS: C & S Indicated? No/Sq. Contamination
[2020-04-29 16:59] LABS: Abs Immature Grans 0.07 10^3/uL (0.0-0.06); Absolute Basophil Count 0.08 10^3/uL (0.0-0.2); Absolute Eosinophil Count 0.44 10^3/uL (0.0-0.7); Absolute Lymphocyte Count 2.01 10^3/uL (1.2-3.4); Absolute Monocyte Count 0.62 10^3/uL (0.1-0.8); Basophils % 0.7; Eosinophils % 3.9; HCT 35.9 % (36.0-46.0); HGB 10.8 g/dL (11.2-15.7); Immature Grans % 0.6; Lymphocytes % 17.9; MCH 26.9 pg (27.0-33.0); MCHC 30.1 % (32.0-36.0); MCV 89.5 fL (80-95); MPV 10.4 fL (8.0-11.0); Monocytes % 5.5; Neutrophils % 71.4; Nucleated RBC 0 %; Platelet Count 239 10^3/uL (130-400); RBC 4.01 10^6/uL (3.93-5.22); RDW 15.8 % (11.7-14.6); RDW-SD 51.6 fL; WBC 11.21 10^3/uL (4.4-10.8)
[2020-04-29 17:00] VITALS: RESP 18
[2020-04-29 17:08] VITALS: BP 119/39; PULSE 58; RESP 18; O2SAT 99
[2020-04-29 17:11] LABS: ALT 22 U/L (14-59); AST 20 U/L (15-37); Albumin 3.8 g/dL (3.4-5.0); Alkaline Phosphatase 96 U/L (46-116); Anion Gap 6.1 mmol/L (3-11); BUN 51 mg/dL (7-18); Bilirubin, Total 0.3 mg/dL (0.2-1.0); CO2 33.9 mmol/L (21.0-32.0); CREATININE 1.96 mg/dL (0.55-1.02); Calcium 9.3 mg/dL (8.5-10.1); Chloride 99 mmol/L (98-107); Estimated GFR 24.73 (mL/min/1.73m2); Glucose 168 mg/dL (74-106); Magnesium 1.9 mg/dL (1.8-2.4); Potassium 4.4 mmol/L (3.5-5.1); Sodium 139 mmol/L (136-145); Total Protein 8.8 g/dL (6.4-8.2)
--- NOTE | 2020-04-29 17:45 | DI.VRAD_ITS ---
PROCEDURE INFORMATION: Exam: CT Head Without Contrast Exam date and time: 04/29/2020 5:17 PM Age: 79 years old Clinical indication: Other: R arm tremors TECHNIQUE: Imaging protocol: Computed tomography of the head without contrast. COMPARISON: CT HEAD WO 04/18/2020 3:12 AM FINDINGS: Brain: Cerebral volume loss noted. Scattered areas of decreased attenuation in the deep periventricular white matter consistent with small vessel ischemic change. No evidence for acute intracranial hemorrhage. Previously seen left frontal and parietal convexity lateral encephalomalacia is unchanged. Ventricles: Normal. No ventriculomegaly. Bones/joints: Unremarkable. No acute fracture. Sinuses: Visualized sinuses are unremarkable. No fluid levels. Mastoid air cells: Visualized mastoid air cells are well aerated. Soft tissues: Unremarkable. IMPRESSION: Senescent changes noted. No acute intracranial abnormality. Dictated and Authenticated by: Silvia Pinto MD. Ordering:SHANIQUE Townsend MD
[2020-04-29 18:07] LABS: Bilirubin Negative (Negative); Blood Negative (Negative); Clarity Clear (Clear); Glucose Negative (Negative); Ketones Negative (Negative); Leukocyte Esterase Negative (Negative); Nitrite Negative (Negative); Urobilinogen 0.2 EU/dL (Up TO 0.2); pH 5.5 (5-8)
--- NOTE | 2020-04-29 18:22 | NUR.NOTE ---
Nursing Note: Referral for follow up with neurology sent.,
[2020-04-29 18:44] VITALS: BP 151/42; PULSE 60; RESP 14; TEMP 36.5; O2SAT 99
[2020-04-29 18:48] VITALS: BP 151/42; PULSE 60; RESP 14; TEMP 36.5; O2SAT 99
== END 2020-04-29 18:40 | disposition home or self-care (01) ==
PROVIDERS: Emergency Provider Emergency Medicine; PCP Student in an Organized Health Care Education/Training Program
DX: R51 Headache (principal); R25.1 Tremor, unspecified; I12.9 Hypertensive chronic kidney disease with stage 1 through stage 4 chronic kidney disease, or unspecified chronic kidney disease; N18.9 Chronic kidney disease, unspecified; J44.9 Chronic obstructive pulmonary disease, unspecified; Z87.891 Personal history of nicotine dependence; E11.22 Type 2 diabetes mellitus with diabetic chronic kidney disease; Z79.4 Long term (current) use of insulin; Z99.81 Dependence on supplemental oxygen
CPT/HCPCS: 36415; 36416; 80053; 82962; 93005; 96360; 96361; 99285; 70450; 81003; 81015; 83735; 85025; 93010; 99284

== ENCOUNTER 2020-05-05 00:57 | Observation (INO) | payer MEDICARE, MEDICAID, SELFPAY ==
[2020-05-05] VITALS (12 sets, daily range): BP systolic 123–160; BP diastolic 30–74; PULSE 59–66; RESP 14–19; TEMP 35.9–37.3; O2SAT 92–99
--- NOTE | 2020-05-05 00:45 | RT.EKG_ITS ---
APPROVED REPORT Exam: Resting ECG Patient Location: E HR:63 bpm ECG Measurements Heart Rate 63 AXIS LA 188 P 60 QRSd 100 QRS -55 QT 428 T 60 QTc 440 Conclusion Sinus rhythm...normal P axis, V-rate 60- 99 Left anterior fascicular block...axis(240,-40), init forces inf
--- NOTE | 2020-05-05 01:00 | DI.CT_ITS ---
EXAM: CT HEAD CERVICAL SPINE WO CLINICAL HISTORY: fall, pain. TECHNIQUE: Imaging Protocol: Axial computed tomography images with coronal and sagittal reformatted images were created and reviewed COMPARISON: CT CT HEAD WO from 04/29/2020 FINDINGS: Patient motion artifact. CT Head: Ventricles and Extra axial spaces: Normal in size and morphology for the patient's age. Hemorrhage: None. Cerebral parenchyma: There are areas of decreased attenuation in the white matter consistent with macario rovascular ischemic disease. There is an old left parietal infarct. Midline shift: None. Brainstem/Cerebellum: Normal. Calvarium: Normal. Visualized Paranasal sinuses/Mastoids: Clear. Soft Tissues: Unremarkable. CT Cervical Spine: Bones: No acute fracture or subluxation. Degenerative changes. Soft Tissues: Unremarkable. Lung Apices: Clear. IMPRESSION: 1. No acute intracranial process. 2. No acute fracture or subluxation in the cervical spine. RADIATION DOSE DELIVERED: 1,341.07mGy.cm Total DLP DATA REPOSITORY: All CT scans at this facility are submitted to the National Radiology Data Registry (NRDR) Dose Index Registry (DIR) with the [employer] ([employer]). RADIATION OPTIMIZATION: All CT scans at this facility use at least one of these dose optimization te chniques: automated exposure control; mA and/or kV adjustment per patient size (includes targeted exa ms where dose is matched to clinical indication); or iterative reconstruction.
--- NOTE | 2020-05-05 01:00 | DI.CT_ITS ---
EXAM: CT CHEST/ABD/PEL WO CLINICAL HISTORY: fall, left sided chest and abdominal pain TECHNIQUE: Imaging Protocol: Axial computed tomography images with coronal and sagittal reformatted images were created and reviewed CONTRAST MATERIAL: Imaging Protocol: Axial computed tomography images with coronal and sagittal refo rmatted images were created and reviewed. COMPARISON: CT CT ABDOMEN PELVIS WO from 12/10/2019 FINDINGS: CHEST: Tracheobronchial tree: Patent where visualized. Mediastinum and Miracle: No dominant adenopathy or fluid collection. Pulmonary parenchyma: No consolidation or dominant measurable mass. No architectural distortion. Basi lar atelectasis. Pleura: No effusion or pneumothorax. Heart: The heart is not dilated. Moderate severe coronary artery calcification. No pericardial effus ion. Aorta: Thoracic aorta non-dilated. Atherosclerosis. Lymph nodes: Within normal limits. Bones:Degenerative changes. Tubes, Catheters, and Lines: Soft tissues: Unremarkable. ABDOMEN: Liver: Normal density. No measurable mass. Gallbladder and Biliary Tract: No radiodense calculus or dilation. Pancreas: Normal density, no abnormal calcifications or inflammatory process. Spleen: Normal. Adrenals: No masses seen. Kidneys: Normal size, contour and axis. Nonobstructing left renal stones. Hypo and hyperdense renal cortical lesions which may represent simple and complex cysts. If further imaging is warranted ultra sound may be obtained. Abdominal Aorta: Abdominal portion non-dilated. Atherosclerosis. Bowel: No obstruction or bowel wall thickening. Appendix is unremarkable. Colonic diverticulosis. No evidence of acute diverticulitis. Peritoneal Cavity: No ascites, collection or mesenteric inflammatory response. Lymph Nodes: Within normal limits. Bones: Degenerative changes. Soft Tissues: Small fat containing umbilical hernia. PELVIS: Bladder: Symmetric distention, no gross wall thickening. Reproductive Organs: Status post hysterectomy. Lymph Nodes: Within normal limits. Bones: Degenerative changes. IMPRESSION: 1. No acute abdominal or pelvic process. 2. Basilar atelectasis and/or scarring. 3. No acute pulmonary process. No acute fracture. RADIATION DOSE DELIVERED: 1,144.06mGy.cm Total DLP 1,144.06mGy.cm Total DLP DATA REPOSITORY: All CT scans at this facility are submitted to the National Radiology Data Registry (NRDR) Dose Index Registry (DIR) with the [employer] ([employer]). RADIATION OPTIMIZATION: All CT scans at this facility use at least one of these dose optimization te chniques: automated exposure control; mA and/or kV adjustment per patient size (includes targeted exa ms where dose is matched to clinical indication); or iterative reconstruction.
--- NOTE | 2020-05-05 01:09 | ED.GENADUL_ITS ---
Discharge Plan Disposition Patient Disposition: [facility] INPATIENT Condition: Stable Discharge Details Chief Complaint: Dizzy/Sync Clinical Impression: Fall, Syncope Admit Date/Time: 05/05/20 02:10 Admit Provider: Fredo Weiss Attending Provider: Fredo Weiss Primary Care Provider: Kristal Quiñonez ED Provider: Rizwan Doe Discharge Data Discharge Date/Time-TO BE ENTERED AT DEPARTURE: 05/05/20 02:45 Medical Decision Making 80 yo female with hx of prior PE on eliquis per records, renal mass, htn, vascular dementia, hld, who comes in with ems after she had an unwitnessed fall. She is currently oriented to place and name but is unsure of date or time. She states she thinks she woke up to go to the bathroom and fell unsure if she had loc. Her daughter who lives with her heard the fall and called ems. On arrival she was awake but then had a syncopal episode and was unresponsive for a few seconds. She arrives hd stable in a c collar and has mild headache, right lateral neck pain and on arrival denies chest pain, dyspnea, chest pressure or abdominal pain but does have right hip pain tough is able to lift her legs off the bed and has sensation to soft touch in the feet. She does have reproducible pain on exam in left lateral chest over 4/6 ribs in mid axillary line and mild luq pain. Given the fall and pain will obtain ct imaging and obtain lab work to evaluate for anemia, acs and electrolyte abnormality labs and imaging show no acute findings. She remains stable, cleared her c collar. Discussed with pt and she discussed with her daughter and given unclear cause of her syncope and her fall they do not feel comfortable with d/c. Spoke with Dr. Weiss who accepts for admission Differential Diagnosis Differential Diagnosis: syncope, arrythmia, tbi Imaging Data Radiologic Study: Attestation: I personally reviewed and interpreted this imaging study as follows: Imaging: CT Scan Radiologist's impression: no acute findings on head, c spine, chest/abd/pelvis ct Lab Data Lab results reviewed: Yes I reviewed the patient's lab results. ECG Data Attestation: I personally reviewed and interpreted this ECG (s) as follows: Prior ECG tracings: not available for review Interpretation: sinus rhythm, rate of 63, pr 188, no acute st t wave ischemic findings HPI General Mode of arrival: EMS . Date/Time Provider Initiated Documentation: 05/05/20 01:01 . Information obtained by: patient and EMS . History of Present Illness 80 year old F presents to the emergency department with the chief complaint of fall, described as moderate, No relieving factors improve symptom(s), No exacerbating factors reported . Patient did receive the following treatments prior to arrival, none Related Data Home Medications Medication Instructions Recorded Confirmed cholecalciferol (vitamin D3) 1,000 unit PO DAILY 05/20/19 05/05/20 dicyclomine 20 mg PO DAILY PRN 05/20/19 05/05/20 ferrous sulfate 325 mg PO DAILY 05/20/19 05/05/20 Albuterol-Ipatropium 3 ml INHALATION 4-6XD PRN #60 each 05/26/19 05/05/20 acetaminophen [Tylenol] 650 mg PO Q6H #0 tab 07/24/19 05/05/20 fluticasone 250 mcg-salmeterol 50 1 inh IH BID 10/02/19 05/05/20 mcg/dose blistr powdr for inhalation levothyroxine 75 mcg capsule 75 mcg PO DAILY 10/02/19 05/05/20 Oxygen #1 each 10/03/19 04/28/20 albuterol sulfate 90 mcg/actuation 2 puff IH Q6H PRN 10/03/19 05/05/20 aerosol inhaler gabapentin 100 mg capsule 200 mg PO BID cap 10/03/19 05/05/20 melatonin 3 mg tablet 3 mg PO HS PRN 10/03/19 05/05/20 Portable Oxygen System #1 ea 10/24/19 04/28/20 pen needle, diabetic 31 gauge x #200 each 10/24/19 04/28/2011/16 pen needle, diabetic 31 gauge x #300 each 10/24/19 04/28/2011/16 apixaban 2.5 mg tablet 2.5 mg PO BID #60 tab 12/03/19 05/05/20 incentive spirometer #1 ea 01/02/20 04/28/20 paroxetine HCl 20 mg tablet 20 mg PO DAILY #90 tab 01/20/20 05/05/20 trazodone 50 mg tablet 50 mg PO HS PRN #30 tab 01/20/20 05/05/20 CPAP INHALATION 02/04/20 04/28/20 atorvastatin 40 mg tablet 40 mg PO DAILY #90 tab 02/06/20 05/05/20 hydralazine 25 mg tablet 25 mg PO TID #270 tab 03/23/20 05/05/20 pantoprazole 40 mg tablet,delayed 40 mg PO BID@0730,2000 #180 tab 03/23/20 05/05/20 release amlodipine 2.5 mg tablet 2.5 mg PO DAILY #90 tab 04/15/20 05/05/20 buspirone 7.5 mg tablet 7.5 mg PO DAILY #90 tab 04/15/20 05/05/20 metoprolol succinate 25 mg 25 mg PO DAILY #90 tab 04/15/20 05/05/20 tablet,extended release 24 hr allopurinol 100 mg DAILY 04/18/20 05/05/20 insulin glargine 40 unit SUBCUT BID MDD 120 units 04/18/20 05/05/20 furosemide 40 mg PO DAILY 04/24/20 05/05/20 sucralfate 1 g PO QACHS 04/24/20 05/05/20 isosorbide dinitrate 30 mg tablet 30 mg PO BID #60 tab 04/26/20 05/05/20 nitroglycerin 0.4 mg sublingual 0.4 mg SUBLINGUAL Q5M PRN #50 tab 04/26/20 05/05/20 tablet Previous Rx's Medication Instructions Recorded Albuterol-Ipatropium 3 ml INHALATION 4-6XD PRN #60 each 05/26/19 acetaminophen [Tylenol] 650 mg PO Q6H #0 tab 07/24/19 Portable Oxygen System #1 ea 10/24/19 pen needle, diabetic 31 gauge x #200 each 10/24/1911/16 pen needle, diabetic 31 gauge x #300 each 10/24/1911/16 apixaban 2.5 mg tablet 2.5 mg PO BID #60 tab 12/03/19 incentive spirometer #1 ea 01/02/20 paroxetine HCl 20 mg tablet 20 mg PO DAILY #90 tab 01/20/20 trazodone 50 mg tablet 50 mg PO HS PRN #30 tab 01/20/20 atorvastatin 40 mg tablet 40 mg PO DAILY #90 tab 02/06/20 hydralazine 25 mg tablet 25 mg PO TID #270 tab 03/23/20 pantoprazole 40 mg tablet,delayed 40 mg PO BID@07,1999 #180 tab 03/23/20 release amlodipine 2.5 mg tablet 2.5 mg PO DAILY #90 tab 04/15/20 buspirone 7.5 mg tablet 7.5 mg PO DAILY #90 tab 04/15/20 metoprolol succinate 25 mg 25 mg PO DAILY #90 tab 04/15/20 tablet,extended release 24 hr isosorbide dinitrate 30 mg tablet 30 mg PO BID #60 tab 04/26/20 nitroglycerin 0.4 mg sublingual 0.4 mg SUBLINGUAL Q5M PRN #50 tab 04/26/20 tablet Allergies Allergy/AdvReac Type Severity Reaction Status Date / Time Morphine AdvReac Severe Agitation Uncoded 05/05/20 01:03 General Stated Complaint: Dizzy/Sync JOSH: 3 Review of Systems All systems reviewed & are unremarkable except as noted in HPI and below Constitutional Constitutional: Denies chills, Denies fever(s) and Denies weakness Cardiovascular Cardiovascular: Denies chest pain and Denies dyspnea Respiratory Respiratory: Denies cough and Denies dyspnea Gastrointestinal Gastrointestinal: Denies nausea and Denies vomiting Musculoskeletal Musculoskeletal: Denies joint swelling Neurologic Neurologic: Denies weakness Psychiatric Psychiatric: Denies depression [facility] Medical History (Updated 05/05/20 @ 04:57 by Rizwan Doe MD) Anemia (Chronic) CAD (coronary artery disease) (Chronic) Carotid stenosis (Chronic) s/p bilateral CEA Chronic diastolic CHF (congestive heart failure) (Chronic) Chronic iron deficiency anemia (Acute) Chronic low back pain (Chronic) CKD (chronic kidney disease) (Chronic) COPD (chronic obstructive pulmonary disease) (Chronic) Depression with anxiety (Chronic) Diabetes mellitus (Chronic) 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 mellitus (Chronic) Diverticulitis (Acute) DNI (do not intubate) (Acute) DNR (do not resuscitate) (Acute) Eye irritation (Acute) Cellulitis per [employer] (Doxy & Eryth/Polymix/Steroid) Functional tremor (Chronic) GERD (gastroesophageal reflux disease) (Chronic) Gout (Chronic) Right foot, swelling/red/tender [ ] trial Rx History of pulmonary embolism (Chronic) Hyperlipidemia (Chronic) Hypertension (Chronic) Hypothyroidism (Chronic) Iron deficiency (Chronic) Moderate obstructive sleep apnea (Acute 01/21/20) with significant nocturnal hypoxemia 02/03/20 [facility] - CPAP ordered, f/u 04/2020 Obesity (BMI 30.0-34.9) (Chronic) DANYELLE (obstructive sleep apnea) (Chronic) Palliative care patient (Acute) Paroxysmal atrial fibrillation (Chronic) Peripheral vascular disease (Chronic) POLST (Physician Orders for Life-Sustaining Treatment) (Chronic) done with Terra Kebede [facility] on 11/21/19 DNR/DNI Renal mass (Acute) Rheumatoid arthritis (Chronic) 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 Other Heart disease Social History Smoking/Tobacco Use Status: Former Tobacco Use Alcohol Intake: never Drug use: Never Substance use type: does not use Adopted: No Foster care: No Household members: children Housing: house Number of Children: 3 Do you need help understanding health information?: Always current occupation: Retired; attends [employer] during the day Sexually active: No Do you think of yourself as: straight/heterosexual Current gender identity: female Seatbelt use: always Do you feel safe at home: Yes Do you feel safe in your relationship?: Yes Exam Const General: no acute distress Orientation: alert HENMT Head: normal to inspection Ears: external ears normal General nose exam: external nose normal Mouth: moist mucous membranes Eyes General: appearance normal, both eyes and all related structures Neck Neck: normal visual inspection Resp Effort & Inspection: normal respiratory effort and able to speak in complete sentences Cardio Rate: regular rate Skin General skin exam: no rashes or lesions noted Neuro General: patient alert Extrem General: normal to inspection Psych Mental Status: mental status grossly normal Course Vital Signs Vital signs: Vital Signs Temperature 36.7 C 05/05/20 01:00 Pulse 63 05/05/20 01:00 Respiratory Rate 18 05/05/20 01:00 Blood Pressure 145/41 H 05/05/20 01:00 Pulse Oximetry 98 05/05/20 01:00 Temperature 36.7 C 05/05/20 01:00 Temperature Source Skin 05/05/20 01:00 Pulse 63 05/05/20 01:00 Respiratory Rate 18 05/05/20 01:00 Blood Pressure 145/41 H 05/05/20 01:00 Blood Pressure Position Supine 05/05/20 01:00 Pulse Oximetry 98 05/05/20 01:00 Oxygen Delivery Method Room Air 05/05/20 01:00 Oxygen Flow Rate 0 05/05/20 01:00 Pain Level 6 05/05/20 01:00
[2020-05-05 01:19] LABS: Abs Immature Grans 0.17 10^3/uL (0.0-0.06); Absolute Basophil Count 0.08 10^3/uL (0.0-0.2); Absolute Eosinophil Count 0.46 10^3/uL (0.0-0.7); Absolute Lymphocyte Count 2.03 10^3/uL (1.2-3.4); Absolute Monocyte Count 0.75 10^3/uL (0.1-0.8); Basophils % 0.6; Eosinophils % 3.7; HCT 32.3 % (36.0-46.0); HGB 9.9 g/dL (11.2-15.7); Immature Grans % 1.4; Lymphocytes % 16.2; MCH 27.4 pg (27.0-33.0); MCHC 30.7 % (32.0-36.0); MCV 89.5 fL (80-95); MPV 10.3 fL (8.0-11.0); Neutrophils % 72.1; Nucleated RBC 0 %; Platelet Count 232 10^3/uL (130-400); RBC 3.61 10^6/uL (3.93-5.22); RDW 15.6 % (11.7-14.6); RDW-SD 50.5 fL; WBC 12.55 10^3/uL (4.4-10.8)
[2020-05-05 01:35] LABS: Absolute Neutrophil Count 9.05 10^3/uL (1.2-6.7); PTT Activated 31.6 sec (21.0-31.4); Prothrombin Time 10.4 sec (9.3-11.0)
--- NOTE | 2020-05-05 01:43 | DI.VRAD_ITS ---
PROCEDURE INFORMATION: Exam: CT Head Without Contrast Exam date and time: 05/05/2020 1:03 AM Age: 80 years old Clinical indication: Injury or trauma; Initial encounter; Blunt trauma (contusions or hematomas); Consciousness not specified; Injury date: 05/05/20; Injury details: Fall with pain TECHNIQUE: Imaging protocol: Computed tomography of the head without contrast. Radiation optimization: All CT scans at this facility use at least one of these dose optimization techniques: automated exposure control; mA and/or kV adjustment per patient size (includes targeted exams where dose is matched to clinical indication); or iterative reconstruction. COMPARISON: CT HEAD WO 04/29/2020 5:16 PM FINDINGS: Brain: Posterior left parietal and cephalo malacia compatible with multifocal infarcts Ventricles: Normal. No ventriculomegaly. Bones/joints: Unremarkable. No acute fracture. Sinuses: Visualized sinuses are unremarkable. No fluid levels. Mastoid air cells: Visualized mastoid air cells are well aerated. Soft tissues: Unremarkable. IMPRESSION: No acute findings PROCEDURE INFORMATION: Exam: CT Cervical Spine Without Contrast Exam date and time: 05/05/2020 1:03 AM Age: 80 years old Clinical indication: Injury or trauma; Initial encounter; Blunt trauma (contusions or hematomas); Consciousness not specified; Injury date: 05/05/20; Injury details: Fall with pain TECHNIQUE: Imaging protocol: Computed tomography images of the cervical spine without contrast. Radiation optimization: All CT scans at this facility use at least one of these dose optimization techniques: automated exposure control; mA and/or kV adjustment per patient size (includes targeted exams where dose is matched to clinical indication); or iterative reconstruction. COMPARISON: CT HEAD WO 04/29/2020 5:16 PM FINDINGS: Vertebrae: No acute fracture. Normal alignment. C2-C3: No significant disc protrusion. No severe spinal canal stenosis. No significant neural foraminal narrowing. C3-C4: No significant disc protrusion. No severe spinal canal stenosis. No significant neural foraminal narrowing. C4-C5: No significant disc protrusion. No severe spinal canal stenosis. No significant neural foraminal narrowing. C5-C6: No significant disc protrusion. No severe spinal canal stenosis. No significant neural foraminal narrowing. C6-C7: No significant disc protrusion. No severe spinal canal stenosis. No significant neural foraminal narrowing. C7-T1: No significant disc protrusion. No severe spinal canal stenosis. No significant neural foraminal narrowing. Soft tissues: Unremarkable. Lungs: Lung apices are normal. Other findings: Cervical degenerative disc disease and facet joint arthropathy noted. IMPRESSION: No acute findings Dictated and Authenticated by: Fernando Cazares MD. Ordering:IKER Astorga MD
[2020-05-05 01:53] LABS: ALT 18 U/L (14-59); AST 11 U/L (15-37); Albumin 3.5 g/dL (3.4-5.0); Alkaline Phosphatase 95 U/L (46-116); Anion Gap 4.9 mmol/L (3-11); BUN 48 mg/dL (7-18); Bilirubin, Total 0.2 mg/dL (0.2-1.0); CO2 35.1 mmol/L (21.0-32.0); Chloride 99 mmol/L (98-107); Estimated GFR 21.59 (mL/min/1.73m2); Glucose 385 mg/dL (74-106); Magnesium 1.9 mg/dL (1.8-2.4); Potassium 4.6 mmol/L (3.5-5.1); Sodium 139 mmol/L (136-145); Total Protein 7.8 g/dL (6.4-8.2)
[2020-05-05 01:54] LABS: Troponin I < 0.05 ng/mL (<0.06)
--- NOTE | 2020-05-05 02:02 | DI.VRAD_ITS ---
PROCEDURE INFORMATION: Exam: CT Chest Without Contrast Exam date and time: 05/05/2020 1:03 AM Age: 80 years old Clinical indication: Injury; Initial encounter; Generalized; Blunt trauma; Injury date: 05/05/20; Fall with left sided chest and abdominal pain TECHNIQUE: Imaging protocol: Computed tomography of the chest without contrast. Radiation optimization: All CT scans at this facility use at least one of these dose optimization techniques: automated exposure control; mA and/or kV adjustment per patient size (includes targeted exams where dose is matched to clinical indication); or iterative reconstruction. COMPARISON: CT ABDOMEN PELVIS WO 12/10/2019 2:52 PM FINDINGS: Lungs: Bibasilar linear parenchymal scarring or subsegmental collapse / atelectasis. Pleural space: Unremarkable. No pneumothorax. No pleural effusion. Heart: Coronary artery and aortic valve annulus calcification. Aorta: Unremarkable. No aortic aneurysm. Lymph nodes: Unremarkable. No enlarged lymph nodes. Bones/joints: No acute fracture. Soft tissues: Unremarkable. IMPRESSION: 1. No acute fracture. 2. No pneumothorax or pleural fluid collection. 3. Bibasilar linear parenchymal scarring or subsegmental collapse / atelectasis. PROCEDURE INFORMATION: Exam: CT Abdomen And Pelvis Without Contrast Exam date and time: 05/05/2020 1:03 AM Age: 80 years old Clinical indication: Injury; Initial encounter; Generalized; Blunt trauma; Injury date: 05/05/20; Fall with left sided chest and abdominal pain TECHNIQUE: Imaging protocol: Computed tomography of the abdomen and pelvis without contrast. Radiation optimization: All CT scans at this facility use at least one of these dose optimization techniques: automated exposure control; mA and/or kV adjustment per patient size (includes targeted exams where dose is matched to clinical indication); or iterative reconstruction. COMPARISON: CT ABDOMEN PELVIS WO 12/10/2019 2:52 PM FINDINGS: Liver: Normal. No mass. Gallbladder and bile ducts: Contracted gallbladder. No calcified gallstones. No biliary tract dilatation. Pancreas: Normal. No ductal dilation. Spleen: Normal. No splenomegaly. Adrenals: Normal. No mass. Kidneys and ureters: Renal cortical simple cysts as well as a few complex right renal cortical cysts. No hydronephrosis. Non-obstructing calcified left renal stones or vascular calcifications. Stomach and bowel: Scattered colon diverticuli without evidence of diverticulitis. Appendix: Normal appendix. Intraperitoneal space: Unremarkable. No free air. No significant fluid collection. Vasculature: Unremarkable. No abdominal aortic aneurysm. Lymph nodes: Unremarkable. No enlarged lymph nodes. Bladder: Unremarkable as visualized. Reproductive: Status post hysterectomy. Bones/joints: No acute fracture. Spinal degenerative changes. Soft tissues: Unremarkable. IMPRESSION: 1. No acute fracture. 2. No acute intra-abdominal or pelvic process. 3. No hydronephrosis. Non-obstructing calcified left renal stones or vascular calcifications. 4. Scattered colon diverticuli without evidence of diverticulitis. Dictated and Authenticated by: Bc Lazaro MD. Ordering:IKER Astorga MD
[2020-05-05 04:46] LABS: Troponin I < 0.05 ng/mL (<0.06)
--- NOTE | 2020-05-05 05:35 | W.PM.HP.N ---
Date of service: 05/05/20 Time of Service: 05:35 Assessment and Plan Assessment and plan (1) Fall: Status: Acute Assessment and plan: Fall. Sounds likely to have been mechanical, though cannot entirely exclude syncope, an d there is additionally report of brief LOC following the main event. No arrhythmia while here on telemetry. Will continue to monitor, but will get PT in to assess for ambulation. Patient was reminded that she needs to use her walker. History of Present Illness History of Present Illness Chief Complaint: fall Narrative: 80 female with multiple problems, lives with daughter. Last night daughter heard a crash, mother found on floor. Says she lost her footing, denies LOC. Was not using her walker. Upon arrival of EMS there was apparently a brief (seconds per ER report) of LOC, no pulse check reported and patient had yet to be placed on monitor. Brought to ER. Imaging of head through pelvis showed no acute findings and no fractures. Due to possibility of syncopal event admitted for further evaluation. Review of Systems All systems reviewed & are unremarkable except as noted in HPI and below [facility]LY [facility] Medical History Anemia (Chronic) CAD (coronary artery disease) (Chronic) Carotid stenosis (Chronic) s/p bilateral CEA Chronic diastolic CHF (congestive heart failure) (Chronic) Chronic iron deficiency anemia (Acute) Chronic low back pain (Chronic) CKD (chronic kidney disease) (Chronic) COPD (chronic obstructive pulmonary disease) (Chronic) Depression with anxiety (Chronic) Diabetes mellitus (Chronic) 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 mellitus (Chronic) Diverticulitis (Acute) DNI (do not intubate) (Acute) DNR (do not resuscitate) (Acute) Eye irritation (Acute) Cellulitis per Opto (Doxy & Eryth/Polymix/Steroid) Functional tremor (Chronic) GERD (gastroesophageal reflux disease) (Chronic) Gout (Chronic) Right foot, swelling/red/tender [ ] trial Rx History of pulmonary embolism (Chronic) Hyperlipidemia (Chronic) Hypertension (Chronic) Hypothyroidism (Chronic) Iron deficiency (Chronic) Moderate obstructive sleep apnea (Acute 01/21/20) with significant nocturnal hypoxemia 02/03/20 Sleep Clinic - CPAP ordered, f/u 04/2020 Obesity (BMI 30.0-34.9) (Chronic) DANYELLE (obstructive sleep apnea) (Chronic) Palliative care patient (Acute) Paroxysmal atrial fibrillation (Chronic) Peripheral vascular disease (Chronic) POLST (Physician Orders for Life-Sustaining Treatment) (Chronic) done with Terra Kebede APPLIANCE COUNSELOR on 11/21/19 DNR/DNI Renal mass (Acute) Rheumatoid arthritis (Chronic) 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 Other Heart disease Social History Smoking/Tobacco Use Status: Former Tobacco Use Alcohol Intake: never Drug use: Never Substance use type: does not use Adopted: No Foster care: No Household members: children Housing: house Number of Children: 3 Do you need help understanding health information?: Always current occupation: Retired; attends [employer] during the day Sexually active: No Do you think of yourself as: straight/heterosexual Current gender identity: female Seatbelt use: always Do you feel safe at home: Yes Do you feel safe in your relationship?: Yes Meds Home Medications and Allergies Home Medications Medication Instructions Recorded Confirmed Type cholecalciferol (vitamin D3) 1,000 unit PO DAILY 05/20/19 05/05/20 History dicyclomine 20 mg PO DAILY PRN 05/20/19 05/05/20 History ferrous sulfate 325 mg PO DAILY 05/20/19 05/05/20 History Albuterol-Ipatropium 3 ml INHALATION 4-6XD PRN #60 each 05/26/19 05/05/20 Rx acetaminophen [Tylenol] 650 mg PO Q6H #0 tab 07/24/19 05/05/20 Rx fluticasone 250 mcg-salmeterol 50 1 inh IH BID 10/02/19 05/05/20 History mcg/dose blistr powdr for inhalation levothyroxine 75 mcg capsule 75 mcg PO DAILY 10/02/19 05/05/20 History Oxygen #1 each 10/03/19 04/28/20 History albuterol sulfate 90 mcg/actuation 2 puff IH Q6H PRN 10/03/19 05/05/20 History aerosol inhaler gabapentin 100 mg capsule 200 mg PO BID cap 10/03/19 05/05/20 History melatonin 3 mg tablet 3 mg PO HS PRN 10/03/19 05/05/20 History Portable Oxygen System #1 ea 10/24/19 04/28/20 Rx pen needle, diabetic 31 gauge x #200 each 10/24/19 04/28/20 Rx 3/16 pen needle, diabetic 31 gauge x #300 each 10/24/19 04/28/20 Rx 3/16 apixaban 2.5 mg tablet 2.5 mg PO BID #60 tab 12/03/19 05/05/20 Rx incentive spirometer #1 ea 01/02/20 04/28/20 Rx paroxetine HCl 20 mg tablet 20 mg PO DAILY #90 tab 01/20/20 05/05/20 Rx trazodone 50 mg tablet 50 mg PO HS PRN #30 tab 01/20/20 05/05/20 Rx CPAP INHALATION 02/04/20 04/28/20 History atorvastatin 40 mg tablet 40 mg PO DAILY #90 tab 02/06/20 05/05/20 Rx hydralazine 25 mg tablet 25 mg PO TID #270 tab 03/23/20 05/05/20 Rx pantoprazole 40 mg tablet,delayed 40 mg PO BID@0730,1999 #180 tab 03/23/20 05/05/20 Rx release amlodipine 2.5 mg tablet 2.5 mg PO DAILY #90 tab 04/15/20 05/05/20 Rx buspirone 7.5 mg tablet 7.5 mg PO DAILY #90 tab 04/15/20 05/05/20 Rx metoprolol succinate 25 mg 25 mg PO DAILY #90 tab 04/15/20 05/05/20 Rx tablet,extended release 24 hr allopurinol 100 mg DAILY 04/18/20 05/05/20 History insulin glargine 40 unit SUBCUT BID MDD 120 units 04/18/20 05/05/20 History furosemide 40 mg PO DAILY 04/24/20 05/05/20 History sucralfate 1 g PO QACHS 04/24/20 05/05/20 History isosorbide dinitrate 30 mg tablet 30 mg PO BID #60 tab 04/26/20 05/05/20 Rx nitroglycerin 0.4 mg sublingual 0.4 mg SUBLINGUAL Q5M PRN #50 tab 04/26/20 05/05/20 Rx tablet Allergies Allergy/AdvReac Type Severity Reaction Status Date / Time Morphine AdvReac Severe Agitation Uncoded 05/05/20 01:03 Exam Narrative Exam Narrative: 155/69, 59, 16, 36.9, 99% RA. HEENT atraumatic; neck supple; lungs clear; heart RRR; abdomen soft and NT; extremities w/o edema, no bruising and pain free ROM, +thrill left wrist; neuro knows place, close on date (May 2022), knows President is Trump, moves all 4s. Results Labs Result diagrams: 05/05/20 01:10 05/05/20 01:10 Labs: Laboratory Results - last 24 hr 05/05/20 05/05/20 05/05/20 01:10 01:10 01:10 WBC 12.55 H RBC 3.61 L Hgb 9.9 L Hct 32.3 L MCV 89.5 MCH 27.4 MCHC 30.7 L RDW 15.6 H Plt Count 232 MPV 10.3 Immature Gran % 1.4 Neutrophils % 72.1 Lymphocytes % 16.2 Monocytes % 6.0 Eosinophils % 3.7 Basophils % 0.6 Nucleated RBC % 0 Absolute Neutrophils 9.05 H Absolute Lymphocytes 2.03 Absolute Monocytes 0.75 Absolute Eosinophils 0.46 Absolute Basophils 0.08 PT 10.4 INR 1.0 APTT 31.6 H Sodium 139 Potassium 4.6 Chloride 99 Carbon Dioxide 35.1 H Anion Gap 4.9 BUN 48 H Creatinine 2.20 H Estimated GFR/1.73 m2 21.59 Glucose 385 H Calcium 9.0 Magnesium 1.9 Total Bilirubin 0.2 AST 11 L ALT 18 Alkaline Phosphatase 95 Troponin I < 0.05 Total Protein 7.8 Albumin 3.5 05/05/20 04:10 WBC RBC Hgb Hct MCV MCH MCHC RDW Plt Count MPV Immature Gran % Neutrophils % Lymphocytes % Monocytes % Eosinophils % Basophils % Nucleated RBC % Absolute Neutrophils Absolute Lymphocytes Absolute Monocytes Absolute Eosinophils Absolute Basophils PT INR APTT Sodium Potassium Chloride Carbon Dioxide Anion Gap BUN Creatinine Estimated GFR/1.73 m2 Glucose Calcium Magnesium Total Bilirubin AST ALT Alkaline Phosphatase Troponin I < 0.05 Total Protein Albumin Last Vital Signs Temp 36.9 C 05/05/20 03:28 Pulse 59 L 05/05/20 03:28 Resp 16 05/05/20 03:28 BP 155/69 H 05/05/20 03:28 Pulse Ox 99 05/05/20 03:28 COVID-19 Screening Have you,or household,traveled outside [place] in last 14 days?: No Had IN PERSON contact w/suspected or confirmed C-19 person: No
[2020-05-05] MEDS: Levothyroxine 75 MCG TAB PO (08:02)
--- NOTE | 2020-05-05 08:35 | PDOC.CMIN ---
- If Service Date Differs Date of service: 05/05/20 Time of Service: 08:35 Care Management Initial Assess REASON FOR HOSPITALIZATION:: Fall PAST MEDICAL HISTORY/PAST SURGICAL HISTORY:: Medical History . Anemia (Chronic). CAD (coronary artery disease) (Chronic). Carotid stenosis (Chronic). s/p bilateral CEA. Chronic diastolic CHF (congestive heart failure) (Chronic). Chronic iron deficiency anemia (Acute). Chronic low back pain (Chronic). CKD (chronic kidney disease) (Chronic). COPD (chronic obstructive pulmonary disease) (Chronic). Depression with anxiety (Chronic). Diabetes mellitus (Chronic). 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 mellitus (Chronic). Diverticulitis (Acute). DNI (do not intubate) (Acute). DNR (do not resuscitate) (Acute). Eye irritation (Acute). Cellulitis per Opto (Doxy & Eryth/Polymix/Steroid). Functional tremor (Chronic). GERD (gastroesophageal reflux disease) (Chronic). Gout (Chronic). Right foot, swelling/red/tender [ ] trial Rx. History of pulmonary embolism (Chronic). Hyperlipidemia (Chronic). Hypertension (Chronic). Hypothyroidism (Chronic). Iron deficiency (Chronic). Moderate obstructive sleep apnea (Acute 01/21/20). with significant nocturnal hypoxemia. 02/03/20 Sleep Clinic - CPAP ordered, f/u 04/2020. Obesity (BMI 30.0-34.9) (Chronic). DANYELLE (obstructive sleep apnea) (Chronic). Palliative care patient (Acute). Paroxysmal atrial fibrillation (Chronic). Peripheral vascular disease (Chronic). POLST (Physician Orders for Life-Sustaining Treatment) (Chronic). done with Terra Kebede NP on 11/21/19. DNR/DNI. Renal mass (Acute). Rheumatoid arthritis (Chronic). 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 TIA (transient ischemic attack) (Chronic). Vascular dementia (Acute). Surgical History . H/O cardiac catheterization (Chronic). [address]. History of left-sided carotid endarterectomy (Chronic). History of right-sided carotid endarterectomy (Chronic). S/P arterial stent (Chronic). leg x2. S/P arteriovenous (AV) fistula creation (Chronic). [facility] in [place]. Family History . Sister. Cancer. Diabetes. Brother. Cancer. Diabetes. Mother , At age 61. Diabetes. Father , in 60s, unknown cause. No problems noted. Other. Heart disease PREVIOUS FUNCTIONAL STATUS/SOCIAL/FAMILY SUPPORTS:: Karina resides with her daughter Fina and son in law in [place], [place]. Her son Rizwan resides in [place]. Karina is mostly independent with personal ADLs and relies on Fina for additional needs in the home setting. Karina used to attend adult day services 5 days a week, but the facility has been closed for months due to the Covid pandemic. Karina has been home with her daughter and son in law. CURRENT FUNCTIONAL STATUS:: Karina was sitting up in a chair when CM met with her. She was pleasant and agreeable to conversation. Karina acknowledged that she is getting weaker and may need additional help. She is agreeable to a SNF placement, which was recommended by PT. Referrals were sent to [facility] and [facility]. ADVANCE DIRECTIVES:: None on file Has patient been provided with info about the portal/API?: Yes Did the patient sign up for the portal?: No CODE STATUS:: DNR/DNI INSURANCE COVERAGE / FINANCIAL ISSUES:: Medicare. Medicaid CURRENT HOME/COMMUNITY SERVICES/EQUIPMENT:: rl PRIMARY CARE PHYSICIAN:: Kristal Quiñonez POTENTIAL DISCHARGE NEEDS:: Follow up with PCP and discharge plan of care PATIENT/FAMILY EDUCATION NEEDS:: Discharge plan, limitations, follow up and Ask Me Three. TRANSPORTATION:: via private vehicle with family PLAN:: Karina will likely be discharged to a SNF for rehab. Referrals have been sent to [facility] and [facility]. She will transport via w/c van from the facility or [facility], depending where she goes. CM will continue to support Karina and her discharge planning needs.
[2020-05-05] MEDS: hydrALAZINE 25 MG TAB PO ×3 (08:49→19:48)
[2020-05-05] MEDS: Gabapentin 100 MG CAP 200 MG PO ×2 (08:49→19:48)
[2020-05-05] MEDS: Furosemide 40 MG TAB PO (08:50)
[2020-05-05] MEDS: Sucralfate 1 GM TAB PO ×4 (08:50→21:20)
[2020-05-05] MEDS: Pantoprazole 40 MG TABCR PO ×2 (08:50→19:48)
[2020-05-05] MEDS: Allopurinol 100 MG TAB PO (08:51)
[2020-05-05] MEDS: amLODIPine 2.5 MG TAB PO (08:51)
[2020-05-05] MEDS: Apixaban 2.5 MG TAB PO ×2 (08:51→19:48)
[2020-05-05] MEDS: Metoprolol CR 25 MG TABCR PO (08:51)
[2020-05-05] MEDS: Atorvastatin 40 MG TAB PO (08:51)
[2020-05-05] MEDS: Isosorbide Dinitrate 10 MG TAB 30 MG PO ×2 (08:51→19:48)
[2020-05-05] MEDS: PARoxetine 20 MG TAB PO (08:52)
[2020-05-05] MEDS: Insulin Glargine 300 UNITS/3 ML PEN 40 UNITS SC ×2 (08:55→19:49)
[2020-05-05] MEDS: Insulin Aspart 300 UNITS/3 ML PEN SC ×3 (08:56→16:59)
[2020-05-05] MEDS: busPIRone 5 MG TAB 7.5 MG PO (08:56)
--- NOTE | 2020-05-05 10:31 | DSE_ITS ---
Date of service: 05/07/20 DS: Diagnosis Discharge Diagnosis (1) Fall: Status: Acute (2) Gout: Status: Chronic Discharge Plan Disposition Patient Disposition: HOME Condition: Stable Discharge Details Chief Complaint: Dizzy/Sync Clinical Impression: Fall, Syncope Reason For Visit: SYNCOPE, FALL Admit Date/Time: 05/05/20 02:10 Admit Provider: Fredo Weiss Attending Provider: Fredo Weiss Primary Care Provider: Kristal Quiñonez ED Provider: Rizwan Doe Hospital Course Hospital Course: THis is a 80 year old female, with a complex medical history which includes vascular dementia, who had an unwitnessed fall at home that was heard by her daughter who found her lying on the floor after hearing a crash, she was awake and at baseline when her daughter first encountered her. initially the patient reported she lost her footing. EMS was called and she reportedly has seconds of unresponsiveness. There was no post-ictal period, tremors or dysrhythmias when placed on monitor. Her work up in the ED was unremarkable and included imaging of head to pelvis. she was referred to observation for possible syncope. On med/surg she remained medically stable and at her baseline. She was in sinus rhythm on telemetry with a brief episode of svt morning of HD 2. she was symptomatic and is resolved spontaneously, she has a known history of PAF and is anticoagulated. Her echo shows preserved LV function with EF of 50- 55% and no significant valvular abnormalities. she is eating and drinking. Physical therapy evaluation completed with recommendations for prison facility placement for continued skilled physical therapy services in order to progress mobility level, strength, and balance in preparation for a safe discharge to home. Her routine screening for covid 19 pcr is negative. She also started to c/o left foot pain with no obvious deformity or evidence of trauma. There is some mild erythema and pain out of proportion most consistent with her history of gout. Xrays obtained as she did have a fall which were negative as expected. she was given colchicine, renal dosing. She is being discharged to [facility] care. discharge plan discussed with Dr Choi who is in agreement. Home Meds and New Rx's Prescriptions: Continued (DME) incentive spirometer Qty: 1 RF: 0 atorvastatin 40 mg tablet 40 mg PO DAILY Qty: 90 RF: 3 melatonin 3 mg tablet 3 mg PO HS PRNRF: 0 (DME) Oxygen Tank See Rx Instructions .ROUTE .MEDSUPPLY Qty: 1 RF: 0 albuterol sulfate 90 mcg/actuation HFA aerosol inhaler 2 puff IH Q6H PRNRF: 0 (DME) pen needle, diabetic [BD Ultra-Fine Mini Pen Needle] 31 gauge x 3/16 needle See Rx Instructions .ROUTE .MEDSUPPLY Qty: 200 RF: 3 (DME) pen needle, diabetic [BD Ultra-Fine Mini Pen Needle] 31 gauge x 3/16 needle See Rx Instructions .ROUTE .MEDSUPPLY Qty: 300 RF: 3 (DME) Portable Oxygen System Qty: 1 RF: 0 fluticasone propion-salmeterol [Advair Diskus] 250-50 mcg/dose blister with device 1 inh IH BID RF: 0 levothyroxine 75 mcg capsule 75 mcg PO DAILY RF: 0 paroxetine HCl [Paxil] 20 mg tablet 20 mg PO DAILY Qty: 90 RF: 3 CPAP inhalation RF: 0 hydralazine 25 mg tablet 25 mg PO TID Qty: 270 RF: 3 pantoprazole 40 mg tablet,delayed release (DR/EC) 40 mg PO BID@729,1999 Qty: 180 RF: 3 amlodipine [Norvasc] 2.5 mg tablet 2.5 mg PO DAILY Qty: 90 RF: 3 metoprolol succinate 25 mg tablet extended release 24 hr 25 mg PO DAILY Qty: 90 RF: 3 isosorbide dinitrate 30 mg tablet 30 mg PO BID Qty: 60 RF: 5 nitroglycerin [Nitrostat] 0.4 mg tablet, sublingual 0.4 mg SUBLINGUAL Q5M PRN (Reason: chest pain) Qty: 50 RF: 5 apixaban 2.5 mg tablet 2.5 mg PO BID Qty: 60 RF: 3 buspirone 7.5 mg tablet 7.5 mg PO DAILY Qty: 90 RF: 3 gabapentin 100 mg capsule 200 mg PO BID Qty: 180 RF: 3 trazodone 50 mg tablet 50 mg PO HS PRN (Reason: insomnia) Qty: 90 RF: 3 cholecalciferol (vitamin D3) 1,000 unit Capsule 1,000 unit PO DAILY RF: 0 ferrous sulfate 325 mg (65 mg iron) Tablet 325 mg PO DAILY RF: 0 dicyclomine 20 mg Tablet 20 mg PO DAILY PRNRF: 0 Albuterol-Ipatropium 0.5 mg 3 ml inhalation 4-6XD PRN (Reason: shortness of breath/wheezing) Qty: 60 RF: 0 acetaminophen [Tylenol] 325 mg Tablet 650 mg PO Q6H Qty: 0 RF: 0 allopurinol 100 mg tablet 100 mg DAILY RF: 0 insulin glargine 100 unit/mL (3 mL) insulin pen 40 unit subcut BID MDD 120 units RF: 0 sucralfate 1 gram Tablet 1 g PO QACHS RF: 0 furosemide 40 mg tablet 40 mg PO DAILY RF: 0 Discharge Instructions Instructions: Fall Prevention (DC) Additional Instructions: Takes oxygen 3 L PRN as needed, with CPAP at HS 10-18 with 3 L oxygen bled in Stand Alone Forms: Nursing Discharge Form Referrals: Kristal Quiñonez DO [Primary Care Provider] - 05/14/20 3:15 pm Activity:: Activity as Tolerated Equipment/Supplies:: No Equipment Needed Diet:: Carb Counting Discharge Orders Discharge Orders: Discharge Order (Routine); Ordered 05/07/20 Ordered By: Edelmira Oconnor Discharge Data Discharge Date/Time-TO BE ENTERED AT DEPARTURE: 05/07/20 10:30 DS: Summary Status at Discharge Functional status at discharge: independent ambulation Overall status at discharge: patient is back to baseline Mental Status: mental status grossly normal Speech and Movement: speech and movement normal Mood: congruent mood Affect: normal affect Exam Const General: no acute distress Orientation: alert HENMT Head: normal to inspection Ears: external ears normal General nose exam: external nose normal Mouth: moist mucous membranes Eyes General: appearance normal, both eyes and all related structures Neck Neck: normal visual inspection Resp Effort & Inspection: normal respiratory effort and able to speak in complete sentences Cardio Rate: regular rate Skin General skin exam: no rashes or lesions noted (mild erythema to dorsum of left foot) Neuro General: patient alert Extrem General: normal to inspection Psych Mental Status: mental status grossly normal Speech and Movement: speech and movement normal Mood: congruent mood Affect: normal affect DS: Data Vitals/I&O Vitals and I&O: Vital Signs Temperature 36.2 C L 05/05/20 07:44 Temperature Source Tympanic 05/05/20 07:44 Pulse 62 05/05/20 09:37 Pulse Rhythm Regular 05/05/20 09:02 Pulse 63 05/05/20 02:00 Respiratory Rate 19 05/05/20 07:44 Respiratory Effort Non-Labored 05/05/20 09:02 Respiratory Depth Normal 05/05/20 09:02 Respiratory Pattern Normal 05/05/20 09:02 Blood Pressure 153/69 H 05/05/20 09:37 Blood Pressure Mean 55 05/05/20 02:30 Blood Pressure Position Supine 05/05/20 01:00 Pulse Oximetry 96 05/05/20 07:45 Oxygen Delivery Method Nasal Cannula 05/05/20 07:45 Oxygen Flow Rate 3 05/05/20 07:45 Pain Level 10 05/05/20 09:07 Intake & Output 05/04/20 05/04/20 05/05/20 11:59 23:59 11:59 Intake Total 200 / 200 Output Total 750 / 750 Balance -550 / -550 Weight 82.4 kg Intake: Oral 200 / 200 Output: Urine 750 / 750 Other: Urine Color Pale Yellow Urine Appearance Clear Urine Odor Normal Voiding Methods Bedside Commode Data Completed and Pending Labs on day of discharge: Labs from last 24 hours 05/05/20 05/05/20 05/05/20 04:10 02:40 01:10 WBC RBC Hgb Hct MCV MCH MCHC RDW Plt Count MPV Immature Gran % Neutrophils % Lymphocytes % Monocytes % Eosinophils % Basophils % Nucleated RBC % Absolute Neutrophils Absolute Lymphocytes Absolute Monocytes Absolute Eosinophils Absolute Basophils PT 10.4 INR 1.0 APTT 31.6 H Sodium Potassium Chloride Carbon Dioxide Anion Gap BUN Creatinine Estimated GFR/1.73 m2 Glucose Calcium Magnesium Total Bilirubin AST ALT Alkaline Phosphatase Troponin I < 0.05 Total Protein Albumin COVID-19 PCR Pending Nasopharyn COVID-19 PCR Pending Ref Test Perform Site Pending 05/05/20 05/05/20 01:10 01:10 WBC 12.55 H RBC 3.61 L Hgb 9.9 L Hct 32.3 L MCV 89.5 MCH 27.4 MCHC 30.7 L RDW 15.6 H Plt Count 232 MPV 10.3 Immature Gran % 1.4 Neutrophils % 72.1 Lymphocytes % 16.2 Monocytes % 6.0 Eosinophils % 3.7 Basophils % 0.6 Nucleated RBC % 0 Absolute Neutrophils 9.05 H Absolute Lymphocytes 2.03 Absolute Monocytes 0.75 Absolute Eosinophils 0.46 Absolute Basophils 0.08 PT INR APTT Sodium 139 Potassium 4.6 Chloride 99 Carbon Dioxide 35.1 H Anion Gap 4.9 BUN 48 H Creatinine 2.20 H Estimated GFR/1.73 m2 21.59 Glucose 385 H Calcium 9.0 Magnesium 1.9 Total Bilirubin 0.2 AST 11 L ALT 18 Alkaline Phosphatase 95 Troponin I < 0.05 Total Protein 7.8 Albumin 3.5 COVID-19 PCR Nasopharyn COVID-19 PCR Ref Test Perform Site [facility] Medical History Anemia (Chronic) CAD (coronary artery disease) (Chronic) Carotid stenosis (Chronic) s/p bilateral CEA Chronic diastolic CHF (congestive heart failure) (Chronic) Chronic iron deficiency anemia (Acute) Chronic low back pain (Chronic) CKD (chronic kidney disease) (Chronic) COPD (chronic obstructive pulmonary disease) (Chronic) Depression with anxiety (Chronic) Diabetes mellitus (Chronic) 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 mellitus (Chronic) Diverticulitis (Acute) DNI (do not intubate) (Acute) DNR (do not resuscitate) (Acute) Eye irritation (Acute) Cellulitis per Opto (Doxy & Eryth/Polymix/Steroid) Functional tremor (Chronic) GERD (gastroesophageal reflux disease) (Chronic) Gout (Chronic) Right foot, swelling/red/tender [ ] trial Rx History of pulmonary embolism (Chronic) Hyperlipidemia (Chronic) Hypertension (Chronic) Hypothyroidism (Chronic) Iron deficiency (Chronic) Moderate obstructive sleep apnea (Acute 01/21/20) with significant nocturnal hypoxemia 02/03/20 Sleep Clinic - CPAP ordered, f/u 04/2020 Obesity (BMI 30.0-34.9) (Chronic) DANYELLE (obstructive sleep apnea) (Chronic) Palliative care patient (Acute) Paroxysmal atrial fibrillation (Chronic) Peripheral vascular disease (Chronic) POLST (Physician Orders for Life-Sustaining Treatment) (Chronic) done with Terra Kebede BEAM RACKER on 11/21/19 DNR/DNI Renal mass (Acute) Rheumatoid arthritis (Chronic) 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 Other Heart disease Social History Smoking/Tobacco Use Status: Former Tobacco Use Alcohol Intake: never Drug use: Never Substance use type: does not use Adopted: No Foster care: No Household members: children Housing: house Number of Children: 3 Do you need help understanding health information?: Always current occupation: Retired; attends [employer] during the day Sexually active: No Do you think of yourself as: straight/heterosexual Current gender identity: female Seatbelt use: always Do you feel safe at home: Yes Do you feel safe in your relationship?: Yes
[2020-05-05] MEDS: IRON SUCROSE COMPLEX 300 MG in Normal Saline 250 ML 167 MG IVPB (12:33)
[2020-05-05] MEDS: Normal Saline Flush 10 ML SYR IVP (12:33)
[2020-05-05 12:54] LABS: Bilirubin Negative (Negative); Blood Negative (Negative); Clarity Clear (Clear); Glucose Negative (Negative); Ketones Negative (Negative); Leukocyte Esterase Moderate (Negative); Nitrite Negative (Negative); Urobilinogen 0.2 EU/dL (Up TO 0.2); pH 5.5 (5-8)
[2020-05-05 13:08] LABS: Bacteria Negative HPF (Negative); C & S Indicated? No/Sq. Contamination; Casts Negative LPF (Negative); Crystals Negative HPF (Negative); Epithelial Cells Many HPF (Negative); Mucus Negative (Negative); Other Cells Few Renal (Negative); RBC Negative HPF (0-2)
[2020-05-05 14:21] LABS: COVID-19 RT-PCR UVMMC Result Negative (Negative)
--- NOTE | 2020-05-05 14:23 | IN_ITS ---
Date of service: 05/05/20 Time of Service: 14:23 PT Notes Visit Reasons: SYNCOPE, FALL Physical Therapy Inpatient Initial Evaluation Date: 05/05/2020 Referring Doctor: Fredo Weiss MD PT Orders: PT CONSULT: Eval/treat Precautions: Fall. Standard. Activity as tolerated. Patient Profile/Admitting Diagnosis: Karina is a 80-year-old female with past medical history as for chronic diastolic congestive heart failure, carotid artery disease, and history of stroke who presented to the ED today due to an unwitnessed fall. Referral to skilled PT services was sent today in order to determine most appropriate discharge destination based on safety of mobility performance. PMHX: Medical History Anemia (Chronic) CAD (coronary artery disease) (Chronic) Carotid stenosis (Chronic) s/p bilateral CEA Chronic diastolic CHF (congestive heart failure) (Chronic) Chronic iron deficiency anemia (Acute) Chronic low back pain (Chronic) CKD (chronic kidney disease) (Chronic) COPD (chronic obstructive pulmonary disease) (Chronic) Depression with anxiety (Chronic) Diabetes mellitus (Chronic) 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 mellitus (Chronic) Diverticulitis (Acute) DNI (do not intubate) (Acute) DNR (do not resuscitate) (Acute) Eye irritation (Acute) Cellulitis per Opto (Doxy & Eryth/Polymix/Steroid) Functional tremor (Chronic) GERD (gastroesophageal reflux disease) (Chronic) Gout (Chronic) Right foot, swelling/red/tender [ ] trial Rx History of pulmonary embolism (Chronic) Hyperlipidemia (Chronic) Hypertension (Chronic) Hypothyroidism (Chronic) Iron deficiency (Chronic) Moderate obstructive sleep apnea (Acute 01/21/20) with significant nocturnal hypoxemia 02/03/20 [facility] - CPAP ordered, f/u 04/2020 Obesity (BMI 30.0-34.9) (Chronic) DANYELLE (obstructive sleep apnea) (Chronic) Palliative care patient (Acute) Paroxysmal atrial fibrillation (Chronic) Peripheral vascular disease (Chronic) POLST (Physician Orders for Life-Sustaining Treatment) (Chronic) done with [employer] FOOD AND BEVERAGE COORDINATOR on 11/21/19 DNR/DNI Renal mass (Acute) Rheumatoid arthritis (Chronic) 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) TIA (transient ischemic attack) (Chronic) Vascular dementia (Acute) Surgical History H/O cardiac catheterization (Chronic) [address] History of left-sided carotid endarterectomy (Chronic) History of right-sided carotid endarterectomy (Chronic) S/P arterial stent (Chronic) leg x2 S/P arteriovenous (AV) fistula creation (Chronic) [facility] in [place] Social History/Home Situation: Karina lives with her daughter Fina and daughter's family in a private home. Her daughter takes care of everything she needs from meals, to house chores, and laundry. She is independent with mobility ADL performance using no assistive device, dressing and all her self- care tasks prior to admission. Equipment Owned/DME: Front wheel walker Subjective: Karina reports that she did not consciousness when she fell. She states that her legs just gave out and she had no control all of her going down onto the floor. She is agreeable to a short rehab stay to regain her prior mobility level before going home. Objective: General Observation: Telemetry monitoring in place. Mental Status: Alert and oriented x4 Pain: None reported ROM: Right Upper Extremity: Shoulder Flexion WFL. Shoulder abduction WFL. Elbow flexion WFL. Wrist flexion WFL. Opening and closing of hand WFL. Left Upper Extremity: Shoulder Flexion WFL. Shoulder abduction WFL. Elbow flexion WFL. Wrist flexion WFL. Opening and closing of hand WFL. Right Lower Extremity: Hip flexion WFL. Hip abduction WFL. Knee flexion WFL. Ankle dorsiflexion WFL. Ankle plantarflexion WFL. Left Lower Extremity: Hip flexion WFL. Hip abduction WFL. Knee flexion WFL. Ankle dorsiflexion WFL. Ankle plantarflexion WFL. Strength: Right Upper Extremity: Shoulder flexors 4-/5. Shoulder abductors 4-/5. Elbow flexors 4-/5. Elbow extensors 4-/5. Beater And Pulper Feeder strong. Left Upper Extremity: Shoulder flexors 4-/5. Shoulder abductors 4-/5. Elbow flexors 4-/5. Elbow extensors 4-/5. Beater And Pulper Feeder strong. Right Lower Extremity: Hip flexors 3+/5. Hip abductors 3+/5. Knee flexors 3+/5. Knee extensors 3+/5. Ankle dorsiflexors 3+/5. Ankle plantarflexors 4-/5. Left Lower Extremity: Hip flexors 3+/5. Hip abductors 3+/5. Knee flexors 3+/5. Knee extensors 3+/5. Ankle dorsiflexors 3+/5. Ankle plantarflexors 4-/5. Sensation: Intact as to pain and pressure on bilateral lower extremities. Bed Mobility/Transfers: Supine to sit standby assist Sit to supine standby assist Sit to stand contact-guard assist Stand to sit contact-guard assist Bed to chair contact-guard assist Chair to bed contact-guard assist Gait: Tolerated 200 feet of level surface ambulation using front wheeled walker with full weight bearing using step through gait pattern with mild path deviation seen, decreased minna, and shakiness in both legs. Patient complained of fatigue right after ambulation activity and left-sided chest pain that disappeared with rest. Heart rate after ambulation activity was 69 bpm. Balance: Static Sitting: Normal Dynamic Sitting: Normal Static Standing: Fair Dynamic Standing: Fair Special Tests: Mobility Limitations Standardized Measure [facility] 6 clicks Basic Mobility Inpatient Short Form: Raw Score: 18 CMS Score: 47% deficit 4 stage balance test: Patient only tolerated feet together for 10 seconds but was unable to perform semi-tandem, full tandem, and 1 legged stance indicating high risk for falls. Informed Consent/Education: Patient instructed in purpose of PT consult and plan of care. Assessment: Karina demonstrates functional mobility decline requiring use of a front wheeled walker and assistance of another for all mobility ADL performance, generalized weakness, decreased activity tolerance, and difficulty with walking. Karina is a 80-year-old female with past medical history as for chronic diastolic congestive heart failure, carotid artery disease, and history of stroke who presented to the ED today due to an unwitnessed fall. Referral to skilled PT services was sent today in order to determine most appropriate discharge destination based on safety of mobility mobility performance. Patient presents with clinical signs and symptoms consistent with current/admitting diagnoses that have resulted to mobility limitations, gait instability, generalized weakness, and impairment of motor control as demonstrated by the following impairment level findings: 1. Decreased strength to B LE major muscle groups 2. Impaired standing balance 3. Impaired activity tolerance Impairments are contributing to the following functional limitations: 1. Increased dependence with transfers 2. Inability to safely ambulate without assistive device and physical assistance 3. Increase completion time for mobility ADL performance 4. Increased fall risk 5. Inability to negotiate steps alone safely Patient is assessed as a 57337 moderate complexity based on the following: History: 80-year-old female with impairment level findings, functional limitations, and past medical history as indicated above Examination: Demonstrable impairment in strength, balance, and mobility level with underlying impairments and functional limitations as documented above Presentation: Evolving Decision Makin moderate complexity Goals: Goals X1 week 1. Supine-Sit independent 2. Sit-Supine independent 3. Sit-Stand independent 4. Stand-Sit independent 5. Bed-Chair independent 6. Chair-Bed independent 7. Independent gait on level surface with use of least restrictive device for at least 300 feet without report of pain nor dyspnea 8. Independent stair negotiation while holding onto bilateral rails for at least 10 steps without report of pain nor dyspnea 9. Independent with home exercise program 10. Good static and dynamic standing balance/tolerance Plan of Care/Treatment Plan: 1-2x/day, 7 days/week x 1 week. Plan of care has been reviewed with the DIESEL TRUCK CRANE OPERATOR providing the service under Physical Therapy direction. Initiate Physical Therapy intervention for strengthening, bed mobility, transfers, gait, stairs, balance training, use of assistive device. DISCHARGE RECOMMENDATIONS: Patient will benefit from nursing home facility placement for continued skilled physical therapy services in order to progress mobility level, strength, and balance in preparation for a safe discharge to home. TREATMENT CODE/TIME: 9716 2 x 25 minutes, 55505 x 14 minutes beginning at 14:23 PM. Thank you for the opportunity to participate in the care of this patient. Theresa Pro PT, DPT, CLT [facility] [place], [place]
[2020-05-05] MEDS: Acetaminophen 325 MG TAB 650 MG PO (21:20)
[2020-05-06] VITALS (8 sets, daily range): BP systolic 141–171; BP diastolic 55–78; PULSE 61–72; RESP 16–19; TEMP 36.2–37.6; O2SAT 92–97
--- NOTE | 2020-05-06 | DI.RAD_ITS ---
EXAM: XR ANKLE LT COMPLETE CLINICAL HISTORY: pain, trauma, dorsal aspect of foot/ankle TECHNIQUE: 2D digital imaging was performed. COMPARISON: No exams were available for comparison FINDINGS: BONES: No acute fracture is present. No bony destructive lesion is seen. JOINTS:The ankle mortise is normally aligned. SOFT TISSUE: Normal. IMPRESSION: Unremarkable radiographs of the left ankle. DATA REPOSITORY: RADIATION DOSE DELIVERED:
--- NOTE | 2020-05-06 | DI.RAD_ITS ---
EXAM: XR FOOT LT COMPLETE CLINICAL HISTORY: trauma, pain, dorsal aspect of foot. TECHNIQUE: 2D digital imaging was performed. COMPARISON: No exams were available for comparison FINDINGS: BONES: No acute fracture is present. No bony destructive lesion is seen. Small plantar calcaneal spur . JOINTS: No dislocation present. SOFT TISSUE: Vascular calcifications. IMPRESSION: No acute fracture or dislocation. DATA REPOSITORY: RADIATION DOSE DELIVERED:
[2020-05-06] MEDS: Acetaminophen 500 MG TAB 1000 MG PO (01:05)
[2020-05-06] MEDS: Levothyroxine 75 MCG TAB PO (06:03)
[2020-05-06] MEDS: Isosorbide Dinitrate 10 MG TAB 30 MG PO ×2 (08:33→19:53)
[2020-05-06] MEDS: amLODIPine 2.5 MG TAB PO (08:33)
[2020-05-06] MEDS: Gabapentin 100 MG CAP 200 MG PO ×2 (08:33→19:53)
[2020-05-06] MEDS: Apixaban 2.5 MG TAB PO ×2 (08:33→19:53)
[2020-05-06] MEDS: Pantoprazole 40 MG TABCR PO ×2 (08:33→19:53)
[2020-05-06] MEDS: Furosemide 40 MG TAB PO (08:34)
[2020-05-06] MEDS: busPIRone 5 MG TAB 7.5 MG PO (08:34)
[2020-05-06] MEDS: Allopurinol 100 MG TAB PO (08:34)
[2020-05-06] MEDS: Sucralfate 1 GM TAB PO ×4 (08:34→21:15)
[2020-05-06] MEDS: hydrALAZINE 25 MG TAB PO ×3 (08:35→19:53)
[2020-05-06] MEDS: Insulin Aspart 300 UNITS/3 ML PEN SC ×3 (08:35→17:04)
[2020-05-06] MEDS: Atorvastatin 40 MG TAB PO (08:35)
[2020-05-06] MEDS: PARoxetine 20 MG TAB PO (08:35)
[2020-05-06] MEDS: Metoprolol CR 25 MG TABCR PO (08:35)
[2020-05-06] MEDS: Insulin Glargine 300 UNITS/3 ML PEN 40 UNITS SC ×2 (08:36→19:54)
[2020-05-06] MEDS: Acetaminophen 325 MG TAB 650 MG PO ×3 (12:28→19:53)
--- NOTE | 2020-05-06 14:43 | CMPROGNOTE_ITS ---
- If Service Date Differs Date of service: 05/06/20 Time of Service: 14:43 Care Management Progress Note S/O:Azucena was lying in bed when CM met with her. She was complaining of severe pain in her left foot and leg. She described the pain like someone is sticking me. This pain began last night and has continued into this afternoon. She had xrays of her foot and ankle which were negative for any acute process. Azucena has received and accepted a bed offer at [facility] for tomorrow. CM called azucena's daughter Fina and updated her on her mother's condition, as well as the bed offer. A: Azucena is a 80 year old woman admitted on 05/05/20 after a syncopal episode with a fall P: Azucena will likely be discharged to a SNF for rehab. A bed offer was received from [facility] and Azucena has accepted it. She will transport via w/c van from the facility. CM will continue to support Azucena and her discharge planning needs.
--- NOTE | 2020-05-06 14:56 | PTTR_ITS ---
PT Notes Visit Reasons: SYNCOPE, FALL Physical Therapy Inpatient Treatment Note Date: 05/06/2020 Precautions: Fall. Standard. Activity as tolerated. Subjective: Karina reports pain in her left foot and toe forward 4-5/10 that she states started early this morning Objective: General Observation: Telemetry monitoring in place. Left second toe bent at the MTP joint at about 10 degrees and is tender to palpation. Mental Status: Alert and oriented x4 Pain: 4?5/10 in the left foot and second toe Bed Mobility/Transfers: Supine to sit standby assist Sit to supine standby assist Sit to stand contact-guard assist Stand to sit contact-guard assist Bed to chair contact-guard assist Chair to bed contact-guard assist THERA EX: Patient is agreeable to doing seated well assist consisting of ankle DF PF x10, seated side, and seated hip x 10 with good response. Karina then gained confidence to try out stepping on the left foot which she was happy about as she was able to walk 70 feet inside her room. Gait: Tolerated only 70 feet of level surface ambulation using front wheeled walker with full weight bearing using step through gait pattern after doing some seated exercises. Balance: Static Sitting: Normal Dynamic Sitting: Normal Static Standing: Fair Dynamic Standing: Fair Assessment: Karina is a significantly limited today by sudden onset left second toe/left foot pain that started early this morning the cause of which she is unaware. With a gentle range of motion and her sizes he did exercises patient realized that she may be able to put weight on it. We will continue to benefit from skilled physical therapy services order to regain unassisted independent ambulation ability at the half-way facility. Plan of Care/Treatment Plan: 1-2x/day, 7 days/week x 1 week. Plan of care has been reviewed with the NURSING STUDENT providing the service under Physical Therapy direction. Initiate Physical Therapy intervention for strengthening, bed mobility, transfers, gait, stairs, balance training, use of assistive device. DISCHARGE RECOMMENDATIONS: Patient will benefit from half-way facility placement for continued skilled physical therapy services in order to progress mobility level, strength, and balance in preparation for a safe discharge to home. TREATMENT CODE/TIME: 77343 x 29 minutes beginning at 14:56 PM.
--- NOTE | 2020-05-06 15:51 | CHAPLAIN ---
Karina was in bed when I visited. She was complaining of severe pain in her left foot, ankle and leg. She said she's had difficulty sleeping because of the pain. I explained my role and offered support. I'll continue to visit.
--- NOTE | 2020-05-06 16:13 | W.PM.PROGNOT ---
Date of Service Date of service: 05/06/20 Time of Service: 16:13 Assessment and Plan Assessment and plan (1) Fall: Status: Acute Assessment and plan: most likely mechanical. has been on telemetry with a self-limiting episode of asymptomatic SVT today, she has known PAF and is anticoagulated. echo show normal LV function with EF 50-55%, no significant valvular dysfunction. consider satellite project site monitor on discharge to evaluate for dysrhythmia possibly causing syncopal episode (2) Gout: Status: Chronic Assessment and plan: given recent fall injury xray of foot and ankle obtained and are unremarkable. her pain is out of proportion to exam and most consistent with gout flare. will order colchicine, renal dosing. (3) CKD (chronic kidney disease): Status: Chronic Assessment and plan: stable with baseline creatinine of 2. will follow and avoid nephrotoxic drugs. has fistula in left forearm (4) COPD (chronic obstructive pulmonary disease): Status: Chronic Assessment and plan: stable. (5) Diabetes mellitus: Status: Chronic Assessment and plan: hemoglobin A1C 7.5 in apr 2020. will continue carb controlled diet, basal insulin, sliding scale coverage ac. (6) Hypothyroidism: Status: Chronic Assessment and plan: TSH in november 2019 2.14, continue synthroid. (7) GERD (gastroesophageal reflux disease): Status: Chronic Assessment and plan: stable, continue PPI Qualifiers: Esophagitis presence: esophagitis presence not specified Qualified Code(s): K21.9 - Gastro-esophageal reflux disease without esophagitis (8) Paroxysmal atrial fibrillation: Status: Chronic Assessment and plan: has been sinus rhythm, continue anticoagulation with apixaban. continue metoprolol (9) Vascular dementia: Status: Acute Assessment and plan: appears at baseline and has been able to provide much reliable history. does seem to have some sundowning this afternoon but with no behavioral issues. expected in elderly with dementia out of her environment in setting of acute gout flare. safety precautions. (10) DVT prophylaxis: Status: Acute Assessment and plan: on apixaban (11) Discharge planning issues: Status: Inactive Assessment and plan: case management following. PT evaluation with recommendations for [facility] facility placement for continued skilled physical therapy services in order to progress mobility level, strength, and balance in preparation for a safe discharge to home. referrals placed. her routine screening for covid 19 pcr is negative. case discussed with Dr Jimbo who is in agreement Subjective Subjective Patient reports: tolerating liquids well, tolerating a regular diet and afebrile; denies shortness of breath Interval history since last seen: c/o left foot pain, some mild erythema, no fevers, no swelling or bruising. pain seems out of proportion with exam. Exam Const General: no acute distress Orientation: alert [facility] Head: normal to inspection Ears: external ears normal General nose exam: external nose normal Mouth: moist mucous membranes Eyes General: appearance normal, both eyes and all related structures Neck Neck: normal visual inspection Resp Effort & Inspection: normal respiratory effort and able to speak in complete sentences Cardio Rate: regular rate Skin General skin exam: no rashes or lesions noted (mild erythema to dorsum of left foot. no swelling, bruising or deformity) Neuro General: patient alert Extrem General: normal to inspection Psych Mental Status: mental status grossly normal Objective Objective Clinical Data: Vital Signs Temperature 37.1 C 05/06/20 15:40 Temperature Source Temporal Artery Scan 05/06/20 15:40 Pulse 68 05/06/20 15:40 Pulse Rhythm Regular 05/06/20 12:30 Pulse 63 05/05/20 02:00 Respiratory Rate 19 05/06/20 15:40 Respiratory Effort Non-Labored 05/06/20 12:30 Respiratory Depth Normal 05/06/20 12:30 Respiratory Pattern Normal 05/06/20 12:30 Blood Pressure 152/71 H 05/06/20 15:40 Blood Pressure Mean 55 05/05/20 02:30 Blood Pressure Position Supine 05/05/20 01:00 Pulse Oximetry 94 L 05/06/20 15:40 Oxygen Delivery Method Room Air 05/06/20 15:40 Oxygen Flow Rate 0 05/06/20 15:40 Pain Level 9 05/06/20 11:45 Intake & Output 05/05/20 05/06/20 05/06/20 23:59 11:59 23:59 Intake Total 805 / 1005 240 / 480 240 / 480 Output Total 900 / 1650 1600 / 1800 200 / 1800 Balance -95 / -645 -1360 / -1320 40 / -1320 Weight 81.2 kg Intake: IV 265 / 265 Oral 540 / 740 240 / 480 240 / 480 Output: Urine 750 / 1500 1600 / 1800 200 / 1800 Stool 150 / 150 Other: Urine Color Pale Yellow Urine Appearance Clear Clear Clear Urine Odor None Strong Stool Size Moderate Stool Characteristics Soft Voiding Methods Bedside Commode Bedside Commode Bedside Commode Laboratory Results WBC 12.55 10^3/uL (4.4-10.8) H 05/05/20 01:10 RBC 3.61 10^6/uL (3.93-5.22) L 05/05/20 01:10 Hgb 9.9 g/dL (11.2-15.7) L 05/05/20 01:10 Hct 32.3 % (36.0-46.0) L 05/05/20 01:10 MCV 89.5 fL (80-95) 05/05/20 01:10 MCH 27.4 pg (27.0-33.0) 05/05/20 01:10 MCHC 30.7 % (32.0-36.0) L 05/05/20 01:10 RDW 15.6 % (11.7-14.6) H 05/05/20 01:10 Plt Count 232 10^3/uL (130-400) 05/05/20 01:10 MPV 10.3 fL (8.0-11.0) 05/05/20 01:10 Immature Gran % 1.4 05/05/20 01:10 Neutrophils % 72.1 05/05/20 01:10 Lymphocytes % 16.2 05/05/20 01:10 Monocytes % 6.0 05/05/20 01:10 Eosinophils % 3.7 05/05/20 01:10 Basophils % 0.6 05/05/20 01:10 Nucleated RBC % 0 % 05/05/20 01:10 Absolute Neutrophils 9.05 10^3/uL (1.2-6.7) H 05/05/20 01:10 Absolute Lymphocytes 2.03 10^3/uL (1.2-3.4) 05/05/20 01:10 Absolute Monocytes 0.75 10^3/uL (0.1-0.8) 05/05/20 01:10 Absolute Eosinophils 0.46 10^3/uL (0.0-0.7) 05/05/20 01:10 Absolute Basophils 0.08 10^3/uL (0.0-0.2) 05/05/20 01:10 PT 10.4 sec (9.3-11.0) 05/05/20 01:10 INR 1.0 (0.9-1.1) 05/05/20 01:10 APTT 31.6 sec (21.0-31.4) H 05/05/20 01:10 Sodium 139 mmol/L (136-145) 05/05/20 01:10 Potassium 4.6 mmol/L (3.5-5.1) 05/05/20 01:10 Chloride 99 mmol/L (98-107) 05/05/20 01:10 Carbon Dioxide 35.1 mmol/L (21.0-32.0) H 05/05/20 01:10 Anion Gap 4.9 mmol/L (3-11) 05/05/20 01:10 BUN 48 mg/dL (7-18) H 05/05/20 01:10 Creatinine 2.20 mg/dL (0.55-1.02) H 05/05/20 01:10 Estimated GFR/1.73 m2 21.59 (mL/min/1.73m2) 05/05/20 01:10 Glucose 385 mg/dL (74-106) H 05/05/20 01:10 Calcium 9.0 mg/dL (8.5-10.1) 05/05/20 01:10 Magnesium 1.9 mg/dL (1.8-2.4) 05/05/20 01:10 Total Bilirubin 0.2 mg/dL (0.2-1.0) 05/05/20 01:10 AST 11 U/L (15-37) L 05/05/20 01:10 ALT 18 U/L (14-59) 05/05/20 01:10 Alkaline Phosphatase 95 U/L (46-116) 05/05/20 01:10 Troponin I < 0.05 ng/mL (<0.06) 05/05/20 04:10 C-Reactive Protein Cancelled 05/06/20 16:02 Total Protein 7.8 g/dL (6.4-8.2) 05/05/20 01:10 Albumin 3.5 g/dL (3.4-5.0) 05/05/20 01:10 Urine Color Yellow (Yellow) 05/05/20 11:30 Urine Clarity Clear (Clear) 05/05/20 11:30 Urine pH 5.5 (5-8) 05/05/20 11:30 Ur Specific [place] 1.010 (1.005-1.025) 05/05/20 11:30 Urine Protein Negative mg/dL (Negative) 05/05/20 11:30 Urine Ketones Negative mg/dL (Negative) 05/05/20 11:30 Urine Blood Negative (Negative) 05/05/20 11:30 Urine Nitrite Negative (Negative) 05/05/20 11:30 Urine Bilirubin Negative (Negative) 05/05/20 11:30 Urine Urobilinogen 0.2 EU/dL (Up TO 0.2) 05/05/20 11:30 Ur Leukocyte Esterase Moderate (Negative) H 05/05/20 11:30 Urine RBC Negative HPF (0-2) 05/05/20 11:30 Urine WBC 10-20 HPF (0-5) H 05/05/20 11:30 Ur Epithelial Cells Many HPF (Negative) 05/05/20 11:30 Urine Crystals Negative HPF (Negative) 05/05/20 11:30 Urine Bacteria Negative HPF (Negative) 05/05/20 11:30 Urine Casts Negative LPF (Negative) 05/05/20 11:30 Urine Mucus Negative (Negative) 05/05/20 11:30 Urine Other Few renal (Negative) 05/05/20 11:30 Ur Culture Indicated? No/sq. contamination 05/05/20 11:30 Urine Glucose Negative mg/dL (Negative) 05/05/20 11:30 COVID-19 PCR Negative (Negative) 05/05/20 02:40 Nasopharyn COVID-19 PCR Not Applicable 05/05/20 02:40 Ref Test Perform Site [facility] lab 05/05/20 02:40
[2020-05-06 16:18] LABS: Abs Immature Grans 0.15 10^3/uL (0.0-0.06); Absolute Basophil Count 0.09 10^3/uL (0.0-0.2); Absolute Monocyte Count 0.84 10^3/uL (0.1-0.8); Basophils % 0.7; Eosinophils % 2.7; HCT 32.6 % (36.0-46.0); HGB 10.3 g/dL (11.2-15.7); Immature Grans % 1.2; Lymphocytes % 10.9; MCH 27.6 pg (27.0-33.0); MCHC 31.6 % (32.0-36.0); MCV 87.4 fL (80-95); MPV 10.4 fL (8.0-11.0); Monocytes % 6.6; Neutrophils % 77.9; Nucleated RBC 0 %; Platelet Count 231 10^3/uL (130-400); RBC 3.73 10^6/uL (3.93-5.22); RDW 15.8 % (11.7-14.6); WBC 12.79 10^3/uL (4.4-10.8)
[2020-05-06 16:21] LABS: Absolute Eosinophil Count 0.35 10^3/uL (0.0-0.7); Absolute Lymphocyte Count 1.39 10^3/uL (1.2-3.4); Absolute Neutrophil Count 9.96 10^3/uL (1.2-6.7)
[2020-05-06 16:38] LABS: Anion Gap 5.2 mmol/L (3-11); BUN 43 mg/dL (7-18); CO2 32.8 mmol/L (21.0-32.0); CREATININE 2.37 mg/dL (0.55-1.02); Calcium 9.2 mg/dL (8.5-10.1); Chloride 100 mmol/L (98-107); Estimated GFR 19.81 (mL/min/1.73m2); Glucose 334 mg/dL (74-106); Potassium 4.8 mmol/L (3.5-5.1); Sodium 138 mmol/L (136-145)
[2020-05-06] MEDS: Colchicine 0.6 MG TAB PO ×2 (16:42→18:17)
[2020-05-07 03:40] VITALS: BP 147/56; PULSE 69; RESP 18; TEMP 37.1; O2SAT 95
[2020-05-07] MEDS: Levothyroxine 75 MCG TAB PO (06:05)
[2020-05-07 07:57] VITALS: BP 153/71; PULSE 68; RESP 18; TEMP 37.9; O2SAT 97
[2020-05-07] MEDS: Gabapentin 100 MG CAP 200 MG PO (08:27)
[2020-05-07] MEDS: Sucralfate 1 GM TAB PO (08:27)
[2020-05-07] MEDS: Furosemide 40 MG TAB PO (08:28)
[2020-05-07] MEDS: Acetaminophen 325 MG TAB 650 MG PO (08:28)
[2020-05-07] MEDS: Allopurinol 100 MG TAB PO (08:28)
[2020-05-07] MEDS: hydrALAZINE 25 MG TAB PO (08:28)
[2020-05-07] MEDS: amLODIPine 2.5 MG TAB PO (08:29)
[2020-05-07] MEDS: Atorvastatin 40 MG TAB PO (08:29)
[2020-05-07] MEDS: PARoxetine 20 MG TAB PO (08:29)
[2020-05-07] MEDS: busPIRone 5 MG TAB 7.5 MG PO (08:29)
[2020-05-07] MEDS: Pantoprazole 40 MG TABCR PO (08:30)
[2020-05-07] MEDS: Isosorbide Dinitrate 10 MG TAB 30 MG PO (08:30)
[2020-05-07] MEDS: Metoprolol CR 25 MG TABCR PO (08:30)
[2020-05-07] MEDS: Apixaban 2.5 MG TAB PO (08:31)
[2020-05-07] MEDS: Insulin Glargine 300 UNITS/3 ML PEN 40 UNITS SC (08:31)
[2020-05-07] MEDS: Insulin Aspart 300 UNITS/3 ML PEN SC (08:32)
--- NOTE | 2020-05-07 09:19 | RESPIRATORY ---
Spoke with Nicholas Amezquita today, they confirmed that patient has a DreamStation CPAP machine prescribed to her on 02/17/20. Pt's own [employer] DreamStation unit CPAP Auto-titrate Min 10 / Max 18 cmH2O. 3L O2 bleed in. Face Mask: Small. Pt also has a home O2 prescription of 3L via Nasal Cannula during the day.
--- NOTE | 2020-05-07 09:59 | INDS_ITS ---
Date of service: 05/07/20 Time of Service: 09:59 PT Notes Visit Reasons: SYNCOPE, FALL Physical Therapy Inpatient Discharge Summary Date: 05/07/2020 Dates of service: 05/05/2020 through 05/07/2020 Referring Doctor: Fredo Weiss MD PT Orders: PT CONSULT: Eval/treat Precautions: Fall. Standard. Activity as tolerated. Patient Profile/Admitting Diagnosis: Karina is a 80-year-old female with past medical history as for chronic diastolic congestive heart failure, carotid artery disease, and history of stroke who presented to the ED today due to an unwitnessed fall. Referral to skilled PT services was sent today in order to determine most appropriate discharge destination based on safety of mobility performance. PMHX: Medical History Anemia (Chronic) CAD (coronary artery disease) (Chronic) Carotid stenosis (Chronic) s/p bilateral CEA Chronic diastolic CHF (congestive heart failure) (Chronic) Chronic iron deficiency anemia (Acute) Chronic low back pain (Chronic) CKD (chronic kidney disease) (Chronic) COPD (chronic obstructive pulmonary disease) (Chronic) Depression with anxiety (Chronic) Diabetes mellitus (Chronic) 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 mellitus (Chronic) Diverticulitis (Acute) DNI (do not intubate) (Acute) DNR (do not resuscitate) (Acute) Eye irritation (Acute) Cellulitis per [employer] (Doxy & Eryth/Polymix/Steroid) Functional tremor (Chronic) GERD (gastroesophageal reflux disease) (Chronic) Gout (Chronic) Right foot, swelling/red/tender [ ] trial Rx History of pulmonary embolism (Chronic) Hyperlipidemia (Chronic) Hypertension (Chronic) Hypothyroidism (Chronic) Iron deficiency (Chronic) Moderate obstructive sleep apnea (Acute 01/21/20) with significant nocturnal hypoxemia 02/03/20 Sleep Clinic - CPAP ordered, f/u 04/2020 Obesity (BMI 30.0-34.9) (Chronic) DANYELLE (obstructive sleep apnea) (Chronic) Palliative care patient (Acute) Paroxysmal atrial fibrillation (Chronic) Peripheral vascular disease (Chronic) POLST (Physician Orders for Life-Sustaining Treatment) (Chronic) done with Terra Kebede ACTING PROFESSOR on 11/21/19 DNR/DNI Renal mass (Acute) Rheumatoid arthritis (Chronic) 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) TIA (transient ischemic attack) (Chronic) Vascular dementia (Acute) Surgical History H/O cardiac catheterization (Chronic) [address] History of left-sided carotid endarterectomy (Chronic) History of right-sided carotid endarterectomy (Chronic) S/P arterial stent (Chronic) leg x2 S/P arteriovenous (AV) fistula creation (Chronic) [facility] in [place] Social History/Home Situation: Karina lives with her daughter Fina and daughter's family in a private home. Her daughter takes care of everything she needs from meals, to house chores, and laundry. She is independent with mobility ADL performance using no assistive device, dressing and all her self- care tasks prior to admission. Equipment Owned/DME: Front wheel walker Subjective: Karina is agreeable to going to a senior living facility and hopes to go back home as soon as she is cleared to do so. Continues to complain of left second toe and left pain that limits her mobility performance. Objective: General Observation: Telemetry monitoring in place. Mental Status: Alert and oriented x4 Pain: 5-6?10 in the left toe and foot ROM: Right Upper Extremity: Shoulder Flexion WFL. Shoulder abduction WFL. Elbow flexion WFL. Wrist flexion WFL. Opening and closing of hand WFL. Left Upper Extremity: Shoulder Flexion WFL. Shoulder abduction WFL. Elbow flexion WFL. Wrist flexion WFL. Opening and closing of hand WFL. Right Lower Extremity: Hip flexion WFL. Hip abduction WFL. Knee flexion WFL. Ankle dorsiflexion WFL. Ankle plantarflexion WFL. Left Lower Extremity: Hip flexion WFL. Hip abduction WFL. Knee flexion WFL. Ankle dorsiflexion WFL. Ankle plantarflexion WFL. Strength: Right Upper Extremity: Shoulder flexors 4-/5. Shoulder abductors 4-/5. Elbow flexors 4-/5. Elbow extensors 4-/5. Hvac Field Service Technician strong. Left Upper Extremity: Shoulder flexors 4-/5. Shoulder abductors 4-/5. Elbow flexors 4-/5. Elbow extensors 4-/5. Hvac Field Service Technician strong. Right Lower Extremity: Hip flexors 3+/5. Hip abductors 3+/5. Knee flexors 3+/5. Knee extensors 3+/5. Ankle dorsiflexors 3+/5. Ankle plantarflexors 4-/5. Left Lower Extremity: Hip flexors 3+/5. Hip abductors 3+/5. Knee flexors 3+/5. Knee extensors 3+/5. Ankle dorsiflexors 3+/5. Ankle plantarflexors 4-/5. Sensation: Intact as to pain and pressure on bilateral lower extremities. Bed Mobility/Transfers: Supine to sit standby assist Sit to supine standby assist Sit to stand standby assist Stand to sit standby assist Bed to chair standby assist Chair to bed standby assist Gait: Tolerates 30 to 200 feet depending on pain level on her left foot with decreased minna and increased anxiety over her left foot pain. Balance: Static Sitting: Normal Dynamic Sitting: Normal Static Standing: Fair Dynamic Standing: Fair 4 stage balance test: Patient only tolerated feet together for 10 seconds but was unable to perform semi-tandem, full tandem, and 1 legged stance indicating high risk for falls. Assessment: Karina will benefit from pre-medication for pain prior to physical therapy session in order to maximize performance. X-ray of the left foot was done which ruled out fracture/dislocation. Karina continues to demonstrate functional mobility decline requiring use of a front wheeled walker and assistance of another for all mobility ADL performance, generalized weakness, decreased activity tolerance, and difficulty with walking. Karina is a 80-year-old female with past medical history as for chronic diastolic congestive heart failure, carotid artery disease, and history of stroke who presented to the ED today due to an unwitnessed fall. Referral to skilled PT services was sent today in order to determine most appropriate discharge destination based on safety of mobility mobility performance. Goals: Goals X1 week 1. Supine-Sit independent NOT MET 2. Sit-Supine independent NOT MET 3. Sit-Stand independent NOT MET 4. Stand-Sit independent NOT MET 5. Bed-Chair independent NOT MET 6. Chair-Bed independent NOT MET 7. Independent gait on level surface with use of least restrictive device for at least 300 feet without report of pain nor dyspnea NOT MET 8. Independent stair negotiation while holding onto bilateral rails for at least 10 steps without report of pain nor dyspnea NOT MET 9. Independent with home exercise program NOT MET 10. Good static and dynamic standing balance/tolerance NOT MET DISCHARGE RECOMMENDATIONS: Patient will benefit from senior living facility placement for continued skilled physical therapy services in order to progress mobility level, strength, and balance in preparation for a safe discharge to home. TREATMENT CODE/TIME: 51862 x 26 minutes beginning at 9:59 AM. Thank you for the opportunity to participate in the care of this patient. Theresa Pro PT, DPT, CLT [facility] [place], [place]
--- NOTE | 2020-05-07 10:45 | NUR.NOTE ---
Nursing Note: 10:31. [facility] transferred [facility]. Nurse called the rehab and gave report to KAREEM Chan. Patient transferred with her own CPAP and other belongings.
--- NOTE | 2020-05-07 16:11 | PDOC.CMDIS ---
- If Service Date Differs Date of service: 05/07/20 Time of Service: 16:11 LACE Index Scoring Tool - Questions: Length of Stay (in days): 2 Acuity (Admit via E.D.?): Yes Comorbidities: Cerebrovascular Disease, Diabetes w/o Complication, Congestive Heart Failure, Chronic Pulmonary Disease, Dementia, Liver or Renal Disease E.D. Visits: 14 - Answers: Total Score: 14 Risk of Readmission: High Risk Care Management Discharge Reason for Hospitalization: Fall Discharge Plan: Karina will be discharged to [facility]. She will transport via their W/C van and follow their plan of care. Patient/Family Education Needs: Expectations and limitations. Additional educational concerns as determined by [facility] providers and staff. Services Needed at Discharge: [facility]
== END 2020-05-07 10:30 | disposition home or self-care (01) ==
LOC: ER 02:16 → MS 02:46
PROVIDERS: Nurse Practitioner Acute Care; Admitting Provider General Practice; Emergency Provider Emergency Medicine; PCP Student in an Organized Health Care Education/Training Program; Visit Provider General Practice
DX: R55 Syncope and collapse (principal); W19.XXXA Unspecified fall, initial encounter; Z86.711 Personal history of pulmonary embolism; Z79.01 Long term (current) use of anticoagulants; I10 Essential (primary) hypertension; F01.50 Vascular dementia, unspecified severity, without behavioral disturbance, psychotic disturbance, mood disturbance, and anxiety; E78.5 Hyperlipidemia, unspecified; Z79.4 Long term (current) use of insulin; I25.10 Atherosclerotic heart disease of native coronary artery without angina pectoris; I50.32 Chronic diastolic (congestive) heart failure; G89.29 Other chronic pain; M54.5 Low back pain; N18.9 Chronic kidney disease, unspecified; F41.8 Other specified anxiety disorders; E11.42 Type 2 diabetes mellitus with diabetic polyneuropathy; Z66 Do not resuscitate; K21.9 Gastro-esophageal reflux disease without esophagitis; G25.0 Essential tremor; M1A.9XX0 Chronic gout, unspecified, without tophus (tophi); E66.9 Obesity, unspecified; G47.33 Obstructive sleep apnea (adult) (pediatric); I48.0 Paroxysmal atrial fibrillation; I73.9 Peripheral vascular disease, unspecified; M06.9 Rheumatoid arthritis, unspecified; Z86.73 Personal history of transient ischemic attack (TIA), and cerebral infarction without residual deficits; I13.0 Hypertensive heart and chronic kidney disease with heart failure and stage 1 through stage 4 chronic kidney disease, or unspecified chronic kidney disease; D50.9 Iron deficiency anemia, unspecified; Z11.59 Encounter for screening for other viral diseases
CPT/HCPCS: 36415; 36416; 71250; 80048; 80053; 82962; 93005; 94640; 97110; 97162; 97530; 99222; 99226; 99239; 99285; U0003; 70450; 72125; 73610; 73630; 74176; 81003; 81015; 83735; 84484; 85025; 85610; 85730; 86140; 93010; 93306; 99218; G0378; J1756

== ENCOUNTER 2020-05-05 04:48 | Outpatient (RCR) | payer MEDICARE, MEDICAID, SELFPAY | END 2020-06-02 23:59 | disposition home or self-care (01) | LOC: INF 04:48 | PROVIDERS: PCP Student in an Organized Health Care Education/Training Program; Visit Provider Internal Medicine | DX: Z53.9 Procedure and treatment not carried out, unspecified reason (principal) ==

== ENCOUNTER 2020-05-17 16:29 | Outpatient (REF) | payer MEDICARE, MEDICAID, SELFPAY ==
[2020-05-17 16:55] LABS: Abs Immature Grans 0.12 10^3/uL (0.0-0.06); Absolute Basophil Count 0.08 10^3/uL (0.0-0.2); Absolute Eosinophil Count 0.35 10^3/uL (0.0-0.7); Absolute Lymphocyte Count 1.83 10^3/uL (1.2-3.4); Absolute Monocyte Count 0.74 10^3/uL (0.1-0.8); Absolute Neutrophil Count 7.53 10^3/uL (1.2-6.7); Basophils % 0.8; Eosinophils % 3.3; HCT 33.5 % (36.0-46.0); HGB 10.5 g/dL (11.2-15.7); Immature Grans % 1.1; Lymphocytes % 17.2; MCH 27.6 pg (27.0-33.0); MCHC 31.3 % (32.0-36.0); MCV 87.9 fL (80-95); MPV 10.7 fL (8.0-11.0); Monocytes % 6.9; Neutrophils % 70.7; Nucleated RBC 0 %; Platelet Count 241 10^3/uL (130-400); RBC 3.81 10^6/uL (3.93-5.22); RDW 15.1 % (11.7-14.6); RDW-SD 48.1 fL; WBC 10.65 10^3/uL (4.4-10.8)
[2020-05-17 17:39] LABS: ALT 25 U/L (14-59); AST 17 U/L (15-37); Albumin 3.6 g/dL (3.4-5.0); Alkaline Phosphatase 110 U/L (46-116); Anion Gap 6.6 mmol/L (3-11); BUN 42 mg/dL (7-18); Bilirubin, Total 0.3 mg/dL (0.2-1.0); CO2 32.4 mmol/L (21.0-32.0); CREATININE 1.81 mg/dL (0.55-1.02); Calcium 9.3 mg/dL (8.5-10.1); Chloride 103 mmol/L (98-107); Estimated GFR 27.04 (mL/min/1.73m2); Glucose 221 mg/dL (74-106); Sodium 142 mmol/L (136-145); Total Protein 7.2 g/dL (6.4-8.2)
== END 2020-05-17 16:49 ==
LOC: LBN 16:29
PROVIDERS: PCP Student in an Organized Health Care Education/Training Program; Visit Provider Nurse Practitioner Adult Health
DX: I10 Essential (primary) hypertension (principal); E11.9 Type 2 diabetes mellitus without complications; R55 Syncope and collapse
CPT/HCPCS: 80053; 85025

== ENCOUNTER 2020-05-19 14:14 | Outpatient (REF) | payer MEDICARE, MEDICAID, SELFPAY ==
[2020-05-20 17:28] LABS: COVID-19 RT-PCR Result Not Detected ((See Note))
== END 2020-05-19 14:34 ==
LOC: LBN 14:14
PROVIDERS: PCP Student in an Organized Health Care Education/Training Program; Visit Provider Nurse Practitioner Adult Health
DX: Z11.59 Encounter for screening for other viral diseases (principal)
CPT/HCPCS: U0003

== ENCOUNTER 2020-06-07 11:23 | Outpatient (CLI) | payer MEDICARE, MEDICAID, SELFPAY ==
[2020-06-08 17:57] LABS: COVID-19 RT-PCR Result Not Detected ((See Note))
== END 2020-06-07 11:43 ==
PROVIDERS: PCP Student in an Organized Health Care Education/Training Program; Visit Provider Family Medicine
DX: Z11.59 Encounter for screening for other viral diseases (principal); Z02.2 Encounter for examination for admission to residential institution
CPT/HCPCS: U0003

== ENCOUNTER 2020-06-15 17:56 | Outpatient (REF) | payer MEDICARE, MEDICAID, SELFPAY ==
[2020-06-15 19:35] LABS: Abs Immature Grans 0.06 10^3/uL (0.0-0.06); Absolute Basophil Count 0.09 10^3/uL (0.0-0.2); Absolute Eosinophil Count 0.37 10^3/uL (0.0-0.7); Absolute Lymphocyte Count 1.31 10^3/uL (1.2-3.4); Absolute Monocyte Count 0.55 10^3/uL (0.1-0.8); Absolute Neutrophil Count 8.11 10^3/uL (1.2-6.7); Basophils % 0.9; Eosinophils % 3.5; HGB 10.3 g/dL (11.2-15.7); Immature Grans % 0.6; Lymphocytes % 12.5; MCH 27.4 pg (27.0-33.0); MCHC 31.2 % (32.0-36.0); MCV 87.8 fL (80-95); MPV 12.1 fL (8.0-11.0); Monocytes % 5.2; Neutrophils % 77.3; Nucleated RBC 0 %; Platelet Count 228 10^3/uL (130-400); RBC 3.76 10^6/uL (3.93-5.22); RDW 14.5 % (11.7-14.6); WBC 10.49 10^3/uL (4.4-10.8)
[2020-06-15 19:38] LABS: Iron 45 ug/dL (50-170); Total Iron Binding Capacity 213 ug/dL (250-450); Transferrin Sat 21 % (15-50)
[2020-06-15 20:02] LABS: ALT 19 U/L (14-59); AST 11 U/L (15-37); Albumin 3.5 g/dL (3.4-5.0); Alkaline Phosphatase 116 U/L (46-116); BUN 40 mg/dL (7-18); Bilirubin, Total 0.3 mg/dL (0.2-1.0); CREATININE 1.85 mg/dL (0.55-1.02); Calcium 8.8 mg/dL (8.5-10.1); Chloride 99 mmol/L (98-107); Estimated GFR 26.37 (mL/min/1.73m2); Ferritin 685 ng/mL (8-252); Glucose 423 mg/dL (74-106); Potassium 4.7 mmol/L (3.5-5.1); Sodium 138 mmol/L (136-145); Total Protein 7.2 g/dL (6.4-8.2)
[2020-06-15 20:46] LABS: Uric Acid 5.9 mg/dL (2.6-6.0)
[2020-06-16 17:58] LABS: COVID-19 RT-PCR Result Not Detected ((See Note))
== END 2020-06-15 18:16 ==
LOC: LBN 17:56
PROVIDERS: PCP Student in an Organized Health Care Education/Training Program; Visit Provider Family Medicine
DX: I48.0 Paroxysmal atrial fibrillation (principal); D50.9 Iron deficiency anemia, unspecified; E11.40 Type 2 diabetes mellitus with diabetic neuropathy, unspecified; M10.9 Gout, unspecified; G30.1 Alzheimer's disease with late onset; E66.01 Morbid (severe) obesity due to excess calories; Z11.59 Encounter for screening for other viral diseases
CPT/HCPCS: 80053; U0003; 82728; 83540; 83550; 84550; 85025

== ENCOUNTER 2020-06-22 23:14 | Emergency (ER) | payer MEDICARE, MEDICAID, SELFPAY ==
--- NOTE | 2020-06-22 23:00 | RT.EKG_ITS ---
APPROVED REPORT Exam: Resting ECG Patient Location: E HR:61 bpm ECG Measurements Heart Rate 61 AXIS GA 204 P 64 QRSd 98 QRS -57 QT 446 T 70 QTc 451 Conclusion Sinus rhythm...normal P axis, V-rate 60- 99 Left anterior fascicular block...axis(240,-40), init forces inf
[2020-06-22 23:14] VITALS: BP 156/95; PULSE 62; RESP 20; TEMP 36.6; O2SAT 96
[2020-06-22 23:25] VITALS: BP 156/95; PULSE 61; RESP 15; O2SAT 96
[2020-06-22 23:26] VITALS: PULSE 59; RESP 18; O2SAT 97
--- NOTE | 2020-06-22 23:26 | ED.GENADUL_ITS ---
Discharge Plan Disposition Patient Disposition: HOME Condition: Stable Discharge Details Clinical Impression: Atypical chest pain Primary Care Provider: Kristal Quiñonez ED Provider: Rizwan Doe Home Meds and New Rx's Prescriptions: New levofloxacin 750 mg tablet 750 mg PO DAILY Qty: 5 RF: 0 Continued (DME) incentive spirometer Qty: 1 RF: 0 atorvastatin 40 mg tablet 40 mg PO DAILY Qty: 90 RF: 3 colchicine 0.6 mg tablet 0.6 mg PO BID PRN (Reason: Gout) Qty: 20 RF: 0 melatonin 3 mg tablet 3 mg PO HS PRNRF: 0 (DME) Oxygen Tank See Rx Instructions .ROUTE .MEDSUPPLY Qty: 1 RF: 0 albuterol sulfate 90 mcg/actuation HFA aerosol inhaler 2 puff IH Q6H PRNRF: 0 (DME) pen needle, diabetic [BD Ultra-Fine Mini Pen Needle] 31 gauge x 3/16 needle See Rx Instructions .ROUTE .MEDSUPPLY Qty: 200 RF: 3 (DME) pen needle, diabetic [BD Ultra-Fine Mini Pen Needle] 31 gauge x 3/16 needle See Rx Instructions .ROUTE .MEDSUPPLY Qty: 300 RF: 3 (DME) Portable Oxygen System Qty: 1 RF: 0 fluticasone propion-salmeterol [Advair Diskus] 250-50 mcg/dose blister with device 1 inh IH BID RF: 0 levothyroxine 75 mcg capsule 25 mcg PO DAILY RF: 0 paroxetine HCl [Paxil] 20 mg tablet 20 mg PO DAILY Qty: 90 RF: 3 CPAP inhalation RF: 0 pantoprazole 40 mg tablet,delayed release (DR/EC) 40 mg PO BID@07,1999 Qty: 180 RF: 3 amlodipine [Norvasc] 2.5 mg tablet 2.5 mg PO DAILY Qty: 90 RF: 3 metoprolol succinate 25 mg tablet extended release 24 hr 25 mg PO DAILY Qty: 90 RF: 3 isosorbide dinitrate 30 mg tablet 30 mg PO BID Qty: 60 RF: 5 nitroglycerin [Nitrostat] 0.4 mg tablet, sublingual 0.4 mg SUBLINGUAL Q5M PRN (Reason: chest pain) Qty: 50 RF: 5 apixaban 2.5 mg tablet 2.5 mg PO BID Qty: 60 RF: 3 buspirone 7.5 mg tablet 7.5 mg PO DAILY Qty: 90 RF: 3 gabapentin 100 mg capsule 200 mg PO BID Qty: 180 RF: 3 trazodone 50 mg tablet 50 mg PO HS PRN (Reason: insomnia) Qty: 90 RF: 3 sucralfate 1 gram tablet 1 g PO QACHS Qty: 120 RF: 1 Tradjenta 5 mg tablet 5 mg PO DAILY RF: 0 hydralazine 25 mg tablet 25 mg PO DAILY RF: 0 cholecalciferol (vitamin D3) 1,000 unit Capsule 1,000 unit PO DAILY RF: 0 ferrous sulfate 325 mg (65 mg iron) Tablet 325 mg PO DAILY RF: 0 dicyclomine 20 mg Tablet 20 mg PO DAILY PRNRF: 0 Albuterol-Ipatropium 0.5 mg 3 ml inhalation 4-6XD PRN (Reason: shortness of breath/wheezing) Qty: 60 RF: 0 acetaminophen [Tylenol] 325 mg Tablet 650 mg PO Q6H Qty: 0 RF: 0 allopurinol 100 mg tablet 100 mg PO DAILY RF: 0 insulin glargine 100 unit/mL (3 mL) insulin pen 20 unit subcut BID MDD 120 units RF: 0 furosemide 40 mg tablet 40 mg PO DAILY RF: 0 Discharge Instructions Additional Instructions: your xray showed a possible early pneumonia follow up with your primary care provider within 1 week if you feel more ill and want further treatment or testing return to the emergency department Medical Decision Making 80 yo female with hx of cad s/p multiple stents, vascular dementia from prior strokes, ckd with fistula in place but has said per chart review she would never want dialysis comes in with left sided chest pain for 30 minutes. She Denies fevers, dyspnea, abdominal pain. She has no rashes on the chest wall. SHe is tender with palpation to the left lateral chest without crepitus. No calf tenderness, pleuritic pain or tachycardia so doubt PE. No tearing back pain so doubt dissection and normal vascular exam. EKG without ischemic findings, will send troponin. Will also obtain cxr to evaluate for ptx vs infiltrate pt remains stable, and sleeping on reassessment. labs show no significant drummond ges from baseline and cxr shows possible atelectasis vs infiltrate near inferior left heart border. She denies fevers and has no cough. Unlikely pna but given findings and her pain will tx as possible pna. I reviewed her colst form with her which had cnc manufacturing engineer and do not transfer to the hospital orders checked off. She would at this time want to start abx but doesn't want hospitalization. She will discuss her colst form further with her family and palliative care. Will d/c back to the [facility]. Advised of lung nodule seen on xray but she states she doesn't want any further workup for this Differential Diagnosis Differential Diagnosis: chest wall pain, acs, pna, ptx Medical Records Medical records reviewed: Yes I reviewed the patient's medical records. Imaging Data Radiologic Study: Attestation: I personally reviewed and interpreted this imaging study as follows: Imaging: X-Ray Radiologist's impression: IMPRESSION: 1. Mild hazy opacities near the inferior left heart border and overlying the lower thoracic vertebral bodies on the lateral radiograph. This could represent atelectasis or infection. 2. Right-sided pulmonary nodule as described.For patients at low risk (minimal or absent history of smoking and of other known risk factors), recommend CT Chest at 6-12 months, then consider CT Chest at 18-24 months. For patients at high risk (history of smoking or of other known risk factors), recommend CT Chest at 6-12 months, then CT Chest at 18-24 months. (Reference: David) 3. Cardiomegaly, unchanged. Other findings/details as above. If symptoms remain concerning, consider alternative imaging modalities Lab Data Lab results reviewed: Yes I reviewed the patient's lab results. ECG Data Attestation: I personally reviewed and interpreted this ECG (s) as follows: Prior ECG tracings: not available for review Interpretation: sinus rhythm, rate of 60, pr 204, no acute st t wave ischemic findings HPI General Mode of arrival: EMS . Date/Time Provider Initiated Documentation: 06/22/20 23:16 . Limitations to Documentation: no limitations . Information obtained by: patient . History of Present Illness 80 year old F presents to the emergency department with the chief complaint of chest pain, described as moderate, and it has been constant. No relieving factors improve symptom(s), No exacerbating factors reported . Patient did receive the following treatments prior to arrival, none Related Data Home Medications Medication Instructions Recorded Confirmed cholecalciferol (vitamin D3) 1,000 unit PO DAILY 05/20/19 05/05/20 dicyclomine 20 mg PO DAILY PRN 05/20/19 06/22/20 ferrous sulfate 325 mg PO DAILY 05/20/19 06/22/20 Albuterol-Ipatropium 3 ml INHALATION 4-6XD PRN #60 each 05/26/19 05/05/20 acetaminophen [Tylenol] 650 mg PO Q6H #0 tab 07/24/19 06/22/20 fluticasone 250 mcg-salmeterol 50 1 inh IH BID 10/02/19 05/05/20 mcg/dose blistr powdr for inhalation levothyroxine 75 mcg capsule 25 mcg PO DAILY 10/02/19 06/22/20 Oxygen #1 each 10/03/19 04/28/20 albuterol sulfate 90 mcg/actuation 2 puff IH Q6H PRN 10/03/19 05/05/20 aerosol inhaler melatonin 3 mg tablet 3 mg PO HS PRN 10/03/19 06/22/20 Portable Oxygen System #1 ea 10/24/19 04/28/20 pen needle, diabetic 31 gauge x #200 each 10/24/19 04/28/2011/16 pen needle, diabetic 31 gauge x #300 each 10/24/19 04/28/2011/16 incentive spirometer #1 ea 01/02/20 04/28/20 paroxetine HCl 20 mg tablet 20 mg PO DAILY #90 tab 01/20/20 06/22/20 CPAP INHALATION 02/04/20 04/28/20 atorvastatin 40 mg tablet 40 mg PO DAILY #90 tab 02/06/20 05/05/20 pantoprazole 40 mg tablet,delayed 40 mg PO BID@0730,1999 #180 tab 03/23/20 06/22/20 release amlodipine 2.5 mg tablet 2.5 mg PO DAILY #90 tab 04/15/20 06/22/20 metoprolol succinate 25 mg 25 mg PO DAILY #90 tab 04/15/20 06/22/20 tablet,extended release 24 hr allopurinol 100 mg PO DAILY 04/18/20 06/22/20 insulin glargine 20 unit SUBCUT BID MDD 120 units 04/18/20 06/22/20 furosemide 40 mg PO DAILY 04/24/20 06/22/20 isosorbide dinitrate 30 mg tablet 30 mg PO BID #60 tab 04/26/20 06/22/20 nitroglycerin 0.4 mg sublingual 0.4 mg SUBLINGUAL Q5M PRN #50 tab 04/26/20 06/22/20 tablet apixaban 2.5 mg tablet 2.5 mg PO BID #60 tab 05/05/20 06/22/20 buspirone 7.5 mg tablet 7.5 mg PO DAILY #90 tab 05/05/20 06/22/20 gabapentin 100 mg capsule 200 mg PO BID #180 cap 05/05/20 trazodone 50 mg tablet 50 mg PO HS PRN #90 tab 05/05/20 06/22/20 sucralfate 1 gram tablet 1 g PO QACHS #120 tab 05/20/20 colchicine 0.6 mg tablet 0.6 mg PO BID PRN #20 tab 06/01/20 06/01/20 Tradjenta 5 mg PO DAILY 06/22/20 06/22/20 hydralazine 25 mg PO DAILY 06/22/20 06/22/20 levofloxacin 750 mg PO DAILY #5 tab 06/23/20 Previous Rx's Medication Instructions Recorded Albuterol-Ipatropium 3 ml INHALATION 4-6XD PRN #60 each 05/26/19 acetaminophen [Tylenol] 650 mg PO Q6H #0 tab 07/24/19 Portable Oxygen System #1 ea 10/24/19 pen needle, diabetic 31 gauge x #200 each 10/24/1911/16 pen needle, diabetic 31 gauge x #300 each 10/24/1911/16 incentive spirometer #1 ea 01/02/20 paroxetine HCl 20 mg tablet 20 mg PO DAILY #90 tab 01/20/20 atorvastatin 40 mg tablet 40 mg PO DAILY #90 tab 02/06/20 pantoprazole 40 mg tablet,delayed 40 mg PO BID@0730,1999 #180 tab 03/23/20 release amlodipine 2.5 mg tablet 2.5 mg PO DAILY #90 tab 04/15/20 metoprolol succinate 25 mg 25 mg PO DAILY #90 tab 04/15/20 tablet,extended release 24 hr isosorbide dinitrate 30 mg tablet 30 mg PO BID #60 tab 04/26/20 nitroglycerin 0.4 mg sublingual 0.4 mg SUBLINGUAL Q5M PRN #50 tab 04/26/20 tablet apixaban 2.5 mg tablet 2.5 mg PO BID #60 tab 05/05/20 buspirone 7.5 mg tablet 7.5 mg PO DAILY #90 tab 05/05/20 gabapentin 100 mg capsule 200 mg PO BID #180 cap 05/05/20 trazodone 50 mg tablet 50 mg PO HS PRN #90 tab 05/05/20 sucralfate 1 gram tablet 1 g PO QACHS #120 tab 05/20/20 colchicine 0.6 mg tablet 0.6 mg PO BID PRN #20 tab 06/01/20 levofloxacin 750 mg PO DAILY #5 tab 06/23/20 Allergies Allergy/AdvReac Type Severity Reaction Status Date / Time Morphine AdvReac Severe Agitation Uncoded 06/22/20 23:47 General Stated Complaint: Chest Pain JOSH: 2 Review of Systems All systems reviewed & are unremarkable except as noted in HPI and below Constitutional Constitutional: Denies chills, Denies fever(s) and Denies weakness Cardiovascular Cardiovascular: Denies dyspnea Respiratory Respiratory: Denies cough and Denies dyspnea Gastrointestinal Gastrointestinal: Denies abdominal pain, Denies nausea and Denies vomiting Musculoskeletal Musculoskeletal: Denies joint swelling Neurologic Neurologic: Denies weakness Psychiatric Psychiatric: Denies depression [facility] Medical History (Updated 06/23/20 @ 00:52 by Rizwan Doe MD) Anemia CAD (coronary artery disease) Carotid stenosis s/p bilateral CEA Chronic diastolic CHF (congestive heart failure) Chronic iron deficiency anemia Chronic low back pain CKD (chronic kidney disease) COPD (chronic obstructive pulmonary disease) Depression with anxiety Diabetes mellitus 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 mellitus Diverticulitis DNI (do not intubate) DNR (do not resuscitate) Eye irritation Cellulitis per [employer] (Doxy & Eryth/Polymix/Steroid) Functional tremor GERD (gastroesophageal reflux disease) Gout Right foot, swelling/red/tender [ ] trial Rx History of pulmonary embolism Hyperlipidemia Hypertension Hypothyroidism Iron deficiency Moderate obstructive sleep apnea (01/21/20) with significant nocturnal hypoxemia 02/03/20 Sleep Clinic - CPAP ordered, f/u 04/2020 Obesity (BMI 30.0-34.9) DANYELLE (obstructive sleep apnea) Palliative care patient Paroxysmal atrial fibrillation Peripheral vascular disease POLST (Physician Orders for Life-Sustaining Treatment) done with Terra Kebede PRODUCT ARCHITECT on 11/21/19 DNR/DNI Renal mass Rheumatoid arthritis Stroke due to embolism TIA (transient ischemic attack) Vascular dementia Surgical History H/O cardiac catheterization [address] History of left-sided carotid endarterectomy History of right-sided carotid endarterectomy S/P arterial stent leg x2 S/P arteriovenous (AV) fistula creation [facility] in [place] Family History Sister Cancer Diabetes Brother Cancer Diabetes Mother , At age 61 Diabetes Father , in 60s, unknown cause No problems noted. Other Heart disease Social History Smoking/Tobacco Use Status: Former Tobacco Use Alcohol Intake: never Drug use: Never Substance use type: does not use Adopted: No Foster care: No Household members: children Housing: house Number of Children: 3 Do you need help understanding health information?: Always current occupation: Retired; attends [employer] during the day Sexually active: No Do you think of yourself as: straight/heterosexual Current gender identity: female Seatbelt use: always Do you feel safe at home: Yes Do you feel safe in your relationship?: Yes Additional Social history: residing at [facility] Exam Const General: no acute distress Orientation: alert HENMT Head: normal to inspection Ears: external ears normal General nose exam: external nose normal Mouth: moist mucous membranes Eyes General: appearance normal, both eyes and all related structures Neck Neck: normal visual inspection Chest Chest: normal inspection of the chest Resp Effort & Inspection: normal respiratory effort and able to speak in complete sentences Cardio Rate: regular rate Skin General skin exam: no rashes or lesions noted Neuro General: patient alert and patient oriented x3 Extrem General: normal to inspection Psych Mental Status: mental status grossly normal Course Vital Signs Vital signs: Vital Signs Temperature 36.6 C 06/22/20 23:14 Pulse 62 06/22/20 23:14 Respiratory Rate 20 06/22/20 23:14 Blood Pressure 156/95 H 06/22/20 23:14 Pulse Oximetry 96 06/22/20 23:14 Temperature 36.6 C 06/22/20 23:14 Temperature Source Skin 06/22/20 23:14 Pulse 62 06/22/20 23:14 Respiratory Rate 06/22/20 23:14 Blood Pressure 156/95 H 06/22/20 23:14 Blood Pressure Position Supine 06/22/20 23:14 Pulse Oximetry 96 06/22/20 23:14 Oxygen Delivery Method Room Air 06/22/20 23:14 Oxygen Flow Rate 0 06/22/20 23:14 Pain Level 10 06/22/20 23:14
[2020-06-22 23:28] VITALS: RESP 14
[2020-06-22 23:30] VITALS: PULSE 60; RESP 13; O2SAT 97
--- NOTE | 2020-06-22 23:30 | DI.RAD_ITS ---
EXAM: XR CHEST 2V PA LATERAL CLINICAL HISTORY: chest pain TECHNIQUE: 2D digital imaging was performed. COMPARISON: CR,XR XR CHEST 2V PA LATERAL from 05/20/2019 CR XR PORTABLE CHEST AP from 06/09/[address] CHEST/ABD/PEL WO from 05/05/2020 FINDINGS: Exam is mildly limited by patient body habitus. The heart is mildly enlarged. The aorta shows calci fication but no dilatation. There are questionable left lower lobe hazy opacities. There is calcifi cation of the costal cartilage. In retrospect on the previous CT of 05 May 2020, there is a nod ule seen adjacent to the right heart border, in the right middle lobe. IMPRESSION: Questionable left pulmonary densities. 8 millimeter pulmonary nodule in the right middle lobe. A est CT follow-up is recommended in 6 months. DATA REPOSITORY: RADIATION DOSE DELIVERED:
[2020-06-22 23:36] LABS: Absolute Basophil Count 0.07 10^3/uL (0.0-0.2); Absolute Eosinophil Count 0.37 10^3/uL (0.0-0.7); Absolute Lymphocyte Count 1.85 10^3/uL (1.2-3.4); Absolute Monocyte Count 0.49 10^3/uL (0.1-0.8); Absolute Neutrophil Count 6.93 10^3/uL (1.2-6.7); Basophils % 0.7; Eosinophils % 3.8; HCT 35.5 % (36.0-46.0); HGB 10.9 g/dL (11.2-15.7); Lymphocytes % 18.9; MCH 27.3 pg (27.0-33.0); MCHC 30.7 % (32.0-36.0); MCV 88.8 fL (80-95); MPV 10.6 fL (8.0-11.0); Neutrophils % 70.6; Nucleated RBC 0 %; Platelet Count 203 10^3/uL (130-400); RDW 14.2 % (11.7-14.6); RDW-SD 45.6 fL; WBC 9.81 10^3/uL (4.4-10.8)
[2020-06-22 23:40] VITALS: PULSE 61; RESP 18; O2SAT 97
[2020-06-22 23:49] LABS: Magnesium 1.7 mg/dL (1.8-2.4)
[2020-06-23] VITALS (9 sets, daily range): BP systolic 127; BP diastolic 43–44; PULSE 53–59; RESP 12–16; O2SAT 95–97
[2020-06-23] MEDS: fentaNYL 100 MCG/2 ML VIAL 50 MCG IVP (00:06)
[2020-06-23 00:11] LABS: ALT 18 U/L (14-59); AST 11 U/L (15-37); Albumin 3.4 g/dL (3.4-5.0); Alkaline Phosphatase 124 U/L (46-116); Anion Gap -1.3 mmol/L (3-11); BUN 34 mg/dL (7-18); Bilirubin, Total 0.4 mg/dL (0.2-1.0); CO2 42.3 mmol/L (21.0-32.0); CREATININE 1.92 mg/dL (0.55-1.02); Calcium 9.6 mg/dL (8.5-10.1); Chloride 94 mmol/L (98-107); Estimated GFR 25.26 (mL/min/1.73m2); Glucose 359 mg/dL (74-106); Lipase 141 U/L (73-393); Potassium 4.1 mmol/L (3.5-5.1); Sodium 135 mmol/L (136-145); Total Protein 7.9 g/dL (6.4-8.2)
[2020-06-23 00:12] LABS: Troponin I < 0.05 ng/mL (<0.06)
--- NOTE | 2020-06-23 00:39 | DI.VRAD_ITS ---
Addendum created by Melissa Palacios MD on 06/23/2020 12:42:15 AM EDT: THIS REPORT CONTAINS FINDINGS THAT MAY BE CRITICAL TO PATIENT CARE. The findings were verbally communicated via telephone conference with Rizwan Doe at 12:41 AM EDT on 06/23/2020. The findings were acknowledged and understood. Initial report created on 06/23/2020 12:38:14 AM EDT: PROCEDURE INFORMATION: Exam: XR Chest, 2 Views Exam date and time: 06/22/2020 11:55 PM Age: 80 years old Clinical indication: Chest pain; Type not specified . Left-sided. TECHNIQUE: Imaging protocol: XR of the chest Views: 2 views. COMPARISON: CT CHEST/ABD/PEL WO 05/05/2020 1:31 AM . Chest radiograph, 04/18/2020. FINDINGS: Lungs: There are mild hazy opacities near the inferior left heart border and overlying the lower thoracic vertebral bodies on the lateral radiograph. This could represent atelectasis or infection. There is an 8 mm right infrahilar nodular density which corresponds to an 8mm pulmonary nodule when correlated with CT scan dated 05/05/2020 (series 3, image 311). Pleural space: No pneumothorax. Heart/Mediastinum: Cardiomegaly is unchanged. The mediastinum is within normal limits. There are vascular calcifications. Bones/joints: Skeletal degenerative changes are seen. IMPRESSION: 1. Mild hazy opacities near the inferior left heart border and overlying the lower thoracic vertebral bodies on the lateral radiograph. This could represent atelectasis or infection. 2. Right-sided pulmonary nodule as described.For patients at low risk (minimal or absent history of smoking and of other known risk factors), recommend CT Chest at 6-12 months, then consider CT Chest at 18-24 months. For patients at high risk (history of smoking or of other known risk factors), recommend CT Chest at 6-12 months, then CT Chest at 18-24 months. (Reference: David) 3. Cardiomegaly, unchanged. Other findings/details as above. If symptoms remain concerning, consider alternative imaging modalities. References: David Blackman, et al. Guidelines for Management of Incidental Pulmonary Nodules Detected on CT Images: From the Fleischner Society 2017. Radiology. 2017;284(1):228-243. Dictated and Authenticated by: Melissa Palacios MD. Ordering:IKER Astorga MD
[2020-06-23] MEDS: levoFLOXacin 500 MG, levoFLOXacin 250 MG 750 MG PO (00:53)
== END 2020-06-23 01:20 | disposition home or self-care (01) ==
PROVIDERS: Emergency Provider Emergency Medicine; PCP Student in an Organized Health Care Education/Training Program
DX: R07.89 Other chest pain (principal); F01.50 Vascular dementia, unspecified severity, without behavioral disturbance, psychotic disturbance, mood disturbance, and anxiety; R91.1 Solitary pulmonary nodule; I12.9 Hypertensive chronic kidney disease with stage 1 through stage 4 chronic kidney disease, or unspecified chronic kidney disease; N18.9 Chronic kidney disease, unspecified; I25.10 Atherosclerotic heart disease of native coronary artery without angina pectoris; Z95.5 Presence of coronary angioplasty implant and graft; J44.9 Chronic obstructive pulmonary disease, unspecified; Z87.891 Personal history of nicotine dependence; E11.22 Type 2 diabetes mellitus with diabetic chronic kidney disease; Z79.4 Long term (current) use of insulin
CPT/HCPCS: 36415; 80053; 83690; 93005; 96374; 99285; 71046; 83735; 84484; 85025; 93010; J3010

== ENCOUNTER 2020-06-23 16:05 | Outpatient (REF) | payer MEDICARE, MEDICAID, SELFPAY ==
[2020-06-24 16:58] LABS: COVID-19 RT-PCR Result Not Detected ((See Note))
== END 2020-06-23 16:25 ==
LOC: LBN 16:05
PROVIDERS: PCP Student in an Organized Health Care Education/Training Program; Visit Provider Family Medicine
DX: Z11.59 Encounter for screening for other viral diseases (principal)
CPT/HCPCS: U0003

== ENCOUNTER 2020-06-30 13:05 | Outpatient (REF) | payer MEDICARE, MEDICAID, SELFPAY ==
[2020-06-30 13:51] LABS: Hemoglobin A1C 9.3 % (<5.7)
== END 2020-06-30 13:25 ==
LOC: NCHCN 13:05
PROVIDERS: PCP Student in an Organized Health Care Education/Training Program; Visit Provider Family Medicine
DX: E11.9 Type 2 diabetes mellitus without complications (principal)
CPT/HCPCS: 83036

== ENCOUNTER 2020-07-20 13:54 | Outpatient (REF) | payer MEDICARE, MEDICAID, SELFPAY ==
[2020-07-20 15:11] LABS: Abs Immature Grans 0.47 10^3/uL (0.0-0.06); Absolute Basophil Count 0.03 10^3/uL (0.0-0.2); Absolute Eosinophil Count 0.21 10^3/uL (0.0-0.7); Absolute Lymphocyte Count 3.69 10^3/uL (1.2-3.4); Absolute Monocyte Count 0.96 10^3/uL (0.1-0.8); Basophils % 0.2; Eosinophils % 1.2; HCT 33.8 % (36.0-46.0); HGB 10.1 g/dL (11.2-15.7); Immature Grans % 2.7; Lymphocytes % 21.5; MCH 27.4 pg (27.0-33.0); MCHC 29.9 % (32.0-36.0); MCV 91.6 fL (80-95); MPV 10.9 fL (8.0-11.0); Monocytes % 5.6; Neutrophils % 68.8; Nucleated RBC 0 %; Platelet Count 270 10^3/uL (130-400); RBC 3.69 10^6/uL (3.93-5.22); RDW 15.4 % (11.7-14.6); RDW-SD 51.1 fL; WBC 17.16 10^3/uL (4.4-10.8)
[2020-07-20 15:13] LABS: Absolute Neutrophil Count 11.81 10^3/uL (1.2-6.7)
[2020-07-20 15:19] LABS: Iron 53 ug/dL (50-170); Total Iron Binding Capacity 219 ug/dL (250-450); Transferrin Sat 24 % (15-50)
[2020-07-20 15:32] LABS: Albumin 3.2 g/dL (3.4-5.0); Anion Gap 6.4 mmol/L (3-11); BUN 48 mg/dL (7-18); CO2 31.6 mmol/L (21.0-32.0); CREATININE 2.03 mg/dL (0.55-1.02); Calcium 8.9 mg/dL (8.5-10.1); Chloride 101 mmol/L (98-107); Estimated GFR 23.69 (mL/min/1.73m2); Glucose 315 mg/dL (74-106); PHOSPHORUS 4.1 mg/dL (2.6-4.7); Potassium 3.6 mmol/L (3.5-5.1); Sodium 139 mmol/L (136-145); Uric Acid 6.2 mg/dL (2.6-6.0)
[2020-07-20 15:55] LABS: PROTEIN 9.5 mg/dL
[2020-07-20 15:59] LABS: COMMENT (LAB VIEW ONLY) 40.57 mg/dL; Prot/Crea Ur Ratio 0.23
[2020-07-20 16:14] LABS: Ferritin 446 ng/mL (8-252)
[2020-08-04 15:46] LABS: Parathyroid Hormone,Intact 22 pg/mL (15-65)
== END 2020-07-20 14:14 ==
LOC: LBN 13:54
PROVIDERS: PCP Student in an Organized Health Care Education/Training Program; Visit Provider Internal Medicine Nephrology
DX: N18.9 Chronic kidney disease, unspecified (principal); D50.9 Iron deficiency anemia, unspecified; I10 Essential (primary) hypertension
CPT/HCPCS: 80048; 82040; 82565; 82728; 83540; 83550; 83970; 84100; 84156; 84550; 85025

== ENCOUNTER 2020-07-23 16:09 | Outpatient (REF) | payer MEDICARE, MEDICAID, SELFPAY ==
[2020-07-23 18:57] LABS: Hemoglobin A1C 9.9 % (<5.7)
== END 2020-07-23 16:29 ==
LOC: LBN 16:09
PROVIDERS: PCP Student in an Organized Health Care Education/Training Program; Visit Provider Family Medicine
DX: E11.9 Type 2 diabetes mellitus without complications (principal)
CPT/HCPCS: 83036

== ENCOUNTER 2020-07-26 13:14 | Outpatient (REF) | payer MEDICARE, MEDICAID, SELFPAY ==
[2020-07-26 14:11] LABS: Abs Immature Grans 0.05 10^3/uL (0.0-0.06); Absolute Basophil Count 0.06 10^3/uL (0.0-0.2); Absolute Lymphocyte Count 1.79 10^3/uL (1.2-3.4); Absolute Monocyte Count 0.63 10^3/uL (0.1-0.8); Absolute Neutrophil Count 6.31 10^3/uL (1.2-6.7); Basophils % 0.7; Eosinophils % 3.3; HCT 30.9 % (36.0-46.0); HGB 9.3 g/dL (11.2-15.7); Immature Grans % 0.5; Lymphocytes % 19.6; MCH 26.8 pg (27.0-33.0); MCHC 30.1 % (32.0-36.0); MPV 11.7 fL (8.0-11.0); Monocytes % 6.9; Nucleated RBC 0 %; Platelet Count 201 10^3/uL (130-400); RBC 3.47 10^6/uL (3.93-5.22); RDW 14.6 % (11.7-14.6); RDW-SD 47.3 fL; WBC 9.14 10^3/uL (4.4-10.8)
[2020-07-26 14:16] LABS: Anion Gap 7.4 mmol/L (3-11); BUN 40 mg/dL (7-18); CO2 31.6 mmol/L (21.0-32.0); CREATININE 2.33 mg/dL (0.55-1.02); Calcium 8.5 mg/dL (8.5-10.1); Chloride 100 mmol/L (98-107); Glucose 340 mg/dL (74-106); Potassium 3.9 mmol/L (3.5-5.1); Sodium 139 mmol/L (136-145)
== END 2020-07-26 13:34 ==
LOC: NCHCN 13:14
PROVIDERS: PCP Student in an Organized Health Care Education/Training Program; Visit Provider Family Medicine
DX: I10 Essential (primary) hypertension (principal); E11.42 Type 2 diabetes mellitus with diabetic polyneuropathy; I25.10 Atherosclerotic heart disease of native coronary artery without angina pectoris; R53.1 Weakness; D50.9 Iron deficiency anemia, unspecified; E66.01 Morbid (severe) obesity due to excess calories
CPT/HCPCS: 80048; 85025

== ENCOUNTER 2020-07-29 22:27 | Emergency (ER) | payer MEDICARE, MEDICAID, SELFPAY ==
[2020-07-29] VITALS (11 sets, daily range): BP systolic 154–166; BP diastolic 45–135; PULSE 63–92; RESP 12–26; TEMP 36.9; O2SAT 92–95
--- NOTE | 2020-07-29 22:15 | RT.EKG_ITS ---
APPROVED REPORT Exam: Resting ECG Patient Location: E HR:79 bpm ECG Measurements Heart Rate 79 AXIS DE 187 P 55 QRSd 104 QRS -48 QT 420 T 57 QTc 481 Conclusion Sinus rhythm...normal P axis, V-rate 60- 99 Atrial premature complex...SV complex w/ short R-R interval Left anterior fascicular block...axis(240,-40), init forces inf Probable left ventricular hypertrophy...multiple LVH criteria
--- NOTE | 2020-07-29 22:18 | ED.GENADUL_ITS ---
Discharge Plan Disposition Patient Disposition: SNF (LEVEL 1) [facility] Condition: Good Discharge Details Clinical Impression: Chronic cough, Elevated glucose Primary Care Provider: Kristal Quiñonez ED Provider: Aisha Blue [place] Meds and New Rx's Prescriptions: Continued (DME) incentive spirometer Qty: 1 RF: 0 atorvastatin 40 mg tablet 40 mg PO DAILY Qty: 90 RF: 3 (DME) Oxygen Tank See Rx Instructions .ROUTE .MEDSUPPLY Qty: 1 RF: 0 albuterol sulfate 90 mcg/actuation HFA aerosol inhaler 2 puff IH Q6H PRNRF: 0 (DME) pen needle, diabetic [BD Ultra-Fine Mini Pen Needle] 31 gauge x 3/16 needle See Rx Instructions .ROUTE .MEDSUPPLY Qty: 200 RF: 3 (DME) pen needle, diabetic [BD Ultra-Fine Mini Pen Needle] 31 gauge x 3/16 needle See Rx Instructions .ROUTE .MEDSUPPLY Qty: 300 RF: 3 (DME) Portable Oxygen System Qty: 1 RF: 0 fluticasone propion-salmeterol [Advair Diskus] 250-50 mcg/dose blister with device 1 inh IH BID RF: 0 levothyroxine 75 mcg capsule 25 mcg PO DAILY RF: 0 paroxetine HCl [Paxil] 20 mg tablet 20 mg PO DAILY Qty: 90 RF: 3 CPAP inhalation RF: 0 pantoprazole 40 mg tablet,delayed release (DR/EC) 40 mg PO BID@0730,1999 Qty: 180 RF: 3 amlodipine [Norvasc] 2.5 mg tablet 2.5 mg PO DAILY Qty: 90 RF: 3 metoprolol succinate 25 mg tablet extended release 24 hr 25 mg PO DAILY Qty: 90 RF: 3 isosorbide dinitrate 30 mg tablet 30 mg PO BID Qty: 60 RF: 5 nitroglycerin [Nitrostat] 0.4 mg tablet, sublingual 0.4 mg SUBLINGUAL Q5M PRN (Reason: chest pain) Qty: 50 RF: 5 apixaban 2.5 mg tablet 2.5 mg PO BID Qty: 60 RF: 3 buspirone 7.5 mg tablet 7.5 mg PO DAILY Qty: 90 RF: 3 gabapentin 100 mg capsule 200 mg PO BID Qty: 180 RF: 3 Tradjenta 5 mg tablet 5 mg PO DAILY RF: 0 hydralazine 25 mg tablet 25 mg PO DAILY RF: 0 docusate sodium 100 mg Capsule 100 mg PO DAILY RF: 0 cholecalciferol (vitamin D3) [Vitamin D3] 25 mcg (1,000 unit) Tablet 50 mcg PO DAILY RF: 0 acetaminophen [Tylenol] 325 mg tablet 650 mg PO Q6H PRN (Reason: Pain) RF: 0 insulin aspart U-100 [Novolog U-100 Insulin aspart] 100 unit/mL Solution See Rx Instructions .ROUTE .COMPLEX RF: 0 Lantus Solostar U-100 Insulin 100 unit/mL (3 mL) Insulin Pen 20 unit SUBCUT HS RF: 0 melatonin 10 mg Capsule 10 mg PO HS RF: 0 trazodone 50 mg tablet 50 mg PO HS RF: 0 sucralfate 1 gram tablet 1 g PO QID RF: 0 ferrous sulfate 325 mg (65 mg iron) Tablet 325 mg PO DAILY RF: 0 dicyclomine 20 mg Tablet 20 mg PO DAILY PRN (Reason: IBS) RF: 0 Albuterol-Ipatropium 0.5 mg 3 ml inhalation 4-6XD PRN (Reason: shortness of breath/wheezing) Qty: 60 RF: 0 allopurinol 100 mg tablet 100 mg PO DAILY RF: 0 insulin glargine 100 unit/mL (3 mL) insulin pen 40 unit subcut BID MDD 120 units RF: 0 furosemide 40 mg tablet 40 mg PO DAILY RF: 0 Discharge Instructions Additional Instructions: Urinalysis showed glucose in the urine. Glucose was elevated here today. There was no evidence of infection. Your chest x-ray showed atelectasis but this does not coorelate with pneumonia at this time. Please follow up with primary care within the next week. If you develops fevers/chills, shortness of breath or other new/worsening symptoms please seek care urgently once again. Referrals: Kristal Quiñonez DO [Primary Care Provider] - Discharge Data Discharge Date/Time-TO BE ENTERED AT DEPARTURE: 07/30/20 00:36 Medical Decision Making Patient is a pleasant 80-year-old female coming in today with the advice of her daughter. Patient resides at the [facility]. She reports that she spoke with her daughter and that she had expressed concern and wanted her evaluated in the ER. Spoke with patient's daughter, Fina, who was concerned the patient was developing a cough and confusion. She reports that she spoke with her today and was making unusual noises. She states that she called the [facility] who evaluated the patient felt she was at her baseline. However, when the daughter called back she felt her mother was still making these unusual noises. Patient is alert and oriented x3 here tonight. She does have a cough the patient reports this is chronic and unchanged. She reports my daughter is worried because she never sees me anymore. Patient seems quite realistic about the pandemic and current situation regard to visitation at this time. She denies any fevers or chills. She reports that she has chronic intermittent chest pain which is not active currently nor has changed at all in recent weeks. Also states that she can have intermittent shortness of breath but this too is chronic and unchanged. She is not currently endorsing any pain or shortness of breath. Patient was seen here last month and was diagnosed with early pneumonia and treated with Levaquin. PMH significant for cardiac stents, vascular dementia, CKD. Spoke at length with the patient the patient. She would like to move forward with what her daughter feels is fit. 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 Her daughter and I spoke on the phone and the daughter feels that her mother was confused when she completed the COMPUTER NETWORKER form. She is concerned that the patient may have a urinary tract infection or pneumonia and would like a UA and chest x-ray. An attempt to follow the wishes of the patient as well as addressed the concern of the daughter, I will order these labs and imaging. FINDINGS: Lungs: Increased bilateral interstitial markings at the lung bases. Previously noted right lower lobe lung nodule is not appreciated on the current study. Hypoventilation. Pleural space: Unremarkable. No pleural effusion. No pneumothorax. Heart/Mediastinum: Cardiomegaly. Vasculature: Atherosclerotic disease. Bones/joints: Unremarkable for patient's age. IMPRESSION: 1. Hypoventilation. 2. Increased interstitial markings at the lung bases may be due to atelectasis or developing infiltrate. 3. Cardiomegaly. UA significant for glucose. Patients BGL 400. On chart review, this appears to be baseline. She states that she did eart turkey, stuffing, pie and others for dinner tonight which is unusual for her. I discussed finding with the patient. she reports that she feels great and again, is unclear as to what the concerns were prompting her to come here today. She is requesting transfer back to the [facility]. Called the daughter and discused the findings. We discussed the history and advised that it is a bit unclear as the report I am getting from the patient and the [facility] staff is much different than the report from her daughter. I did encourage her to discuss COLST form further with the patient's PCP as their is question if this is what the patient really would like. Will transfer patient back via EMS. Advised f/u with PCP. Called [facility] to give report. Nursing staff reports that patient's cough and mental status has been at baseline throughout the day. She states that patient has a chronic cough and has not noted a change. They will continue to moitor her glucose and treat as ordered. HPI General Mode of arrival: EMS . Date/Time Provider Initiated Documentation: 07/29/20 23:38 . Limitations to Documentation: no limitations . Information obtained by: patient, family (spoke with daughter, Fina [phone]), EMS, RN notes reviewed and old records reviewed . HPI Narrative: Patient is a pleasant 80 year old female, bought in via EMS, with c/c of cough. She states that she has had the cough for weeks to years and that it is intermittent. Also reports intermittent CP and SOB but denies these symptoms cur rently. Reports that she has felt baseline today but that she spoike with her daughter, John, who had requested she come in for evaluation. Patient denies fevers/chills. No weakness, change in appetite. Patient resides at the [facility], they report that patient was at her baseline today, was ambulating well. Related Data Home Medications Medication Instructions Recorded Confirmed dicyclomine 20 mg PO DAILY PRN 05/20/19 07/29/20 ferrous sulfate 325 mg PO DAILY 05/20/19 07/29/20 Albuterol-Ipatropium 3 ml INHALATION 4-6XD PRN #60 each 05/26/19 05/05/20 fluticasone 250 mcg-salmeterol 50 1 inh IH BID 10/02/19 07/29/20 mcg/dose blistr powdr for inhalation levothyroxine 75 mcg capsule 25 mcg PO DAILY 10/02/19 07/29/20 Oxygen #1 each 10/03/19 07/29/20 albuterol sulfate 90 mcg/actuation 2 puff IH Q6H PRN 10/03/19 07/29/20 aerosol inhaler Portable Oxygen System #1 ea 10/24/19 07/29/20 pen needle, diabetic 31 gauge x #200 each 10/24/19 07/29/2011/16 pen needle, diabetic 31 gauge x #300 each 10/24/19 07/29/2011/16 incentive spirometer #1 ea 01/02/20 07/29/20 paroxetine HCl 20 mg tablet 20 mg PO DAILY #90 tab 01/20/20 07/29/20 CPAP INHALATION 02/04/20 04/28/20 atorvastatin 40 mg tablet 40 mg PO DAILY #90 tab 02/06/20 07/29/20 pantoprazole 40 mg tablet,delayed 40 mg PO BID@0730,1999 #180 tab 03/23/20 07/29/20 release amlodipine 2.5 mg tablet 2.5 mg PO DAILY #90 tab 04/15/20 07/29/20 metoprolol succinate 25 mg 25 mg PO DAILY #90 tab 04/15/20 07/29/20 tablet,extended release 24 hr allopurinol 100 mg PO DAILY 04/18/20 07/29/20 insulin glargine 40 unit SUBCUT BID MDD 120 units 04/18/20 07/29/20 furosemide 40 mg PO DAILY 04/24/20 07/29/20 isosorbide dinitrate 30 mg tablet 30 mg PO BID #60 tab 04/26/20 07/29/20 nitroglycerin 0.4 mg sublingual 0.4 mg SUBLINGUAL Q5M PRN #50 tab 04/26/20 07/29/20 tablet apixaban 2.5 mg tablet 2.5 mg PO BID #60 tab 05/05/20 07/29/20 buspirone 7.5 mg tablet 7.5 mg PO DAILY #90 tab 05/05/20 07/29/20 gabapentin 100 mg capsule 200 mg PO BID #180 cap 05/05/20 07/29/20 Tradjenta 5 mg PO DAILY 06/22/20 07/29/20 hydralazine 25 mg PO DAILY 06/22/20 07/29/20 Lantus Solostar U-100 Insulin 20 unit SUBCUT HS 07/29/20 07/29/20 acetaminophen [Tylenol] 650 mg PO Q6H PRN 07/29/20 07/29/20 cholecalciferol (vitamin D3) 50 mcg PO DAILY 07/29/20 07/29/20 [Vitamin D3] docusate sodium 100 mg PO DAILY 07/29/20 07/29/20 insulin aspart U-100 [Novolog See Rx Instructions .ROUTE .COMPLEX 07/29/2007/29 U-100 Insulin aspart] melatonin 10 mg PO HS 07/29/20 07/29/20 sucralfate 1 g PO QID 07/29/20 07/29/20 trazodone 50 mg PO HS 07/29/20 07/29/20 Previous Rx's Medication Instructions Recorded Albuterol-Ipatropium 3 ml INHALATION 4-6XD PRN #60 each 05/26/19 Portable Oxygen System #1 ea 10/24/19 pen needle, diabetic 31 gauge x #200 each 10/24/1911/16 pen needle, diabetic 31 gauge x #300 each 10/24/1911/16 incentive spirometer #1 ea 01/02/20 paroxetine HCl 20 mg tablet 20 mg PO DAILY #90 tab 01/20/20 atorvastatin 40 mg tablet 40 mg PO DAILY #90 tab 02/06/20 pantoprazole 40 mg tablet,delayed 40 mg PO BID@0730,1999 #180 tab 03/23/20 release amlodipine 2.5 mg tablet 2.5 mg PO DAILY #90 tab 04/15/20 metoprolol succinate 25 mg 25 mg PO DAILY #90 tab 04/15/20 tablet,extended release 24 hr isosorbide dinitrate 30 mg tablet 30 mg PO BID #60 tab 04/26/20 nitroglycerin 0.4 mg sublingual 0.4 mg SUBLINGUAL Q5M PRN #50 tab 04/26/20 tablet apixaban 2.5 mg tablet 2.5 mg PO BID #60 tab 05/05/20 buspirone 7.5 mg tablet 7.5 mg PO DAILY #90 tab 05/05/20 gabapentin 100 mg capsule 200 mg PO BID #180 cap 05/05/20 Allergies Allergy/AdvReac Type Severity Reaction Status Date / Time Morphine AdvReac Severe Agitation Uncoded 06/22/20 23:47 General JOSH: 2 Review of Systems Constitutional Constitutional: Reports as per HPI, Denies chills, Denies fever(s), Denies headache(s), Denies lethargy and Denies poor appetite Eyes Eyes: Denies change in vision ENT Ears, Nose, Mouth, and Throat: Denies dizziness and Denies headache(s) Cardiovascular Cardiovascular: Reports as per HPI, Reports chest pain (intermittent, no exacerbating factors, no pain currently, chronic pain), Denies pedal edema, Denies edema, Denies radiating jaw, neck or arm pain, Denies dyspnea and Denies dyspnea on exertion Respiratory Respiratory: Reports as per HPI, Denies chest congestion, Reports cough (patient reports chronic, unchanged from baseline), Denies hemoptysis, Denies excessive phlegm production, Denies pain on inspiration, Denies pain with cough, Denies dyspnea, Denies dyspnea on exertion and Denies wheezing Gastrointestinal Gastrointestinal: Reports as per HPI, Denies abdominal pain, Denies diarrhea, Denies nausea and Denies vomiting Musculoskeletal Musculoskeletal: Reports as per HPI and Denies back pain Integumentary/Breasts Skin/Breast: Reports as per HPI and Denies rash Neurologic Neurologic: Reports as per HPI, Denies dizziness and Denies headache(s) Allergic/Immunologic Allergic/Immunologic: Denies wheezing [facility] Medical History (Updated 07/30/20 @ 00:02 by JASS Gonzalez) Anemia CAD (coronary artery disease) Carotid stenosis s/p bilateral CEA Chronic diastolic CHF (congestive heart failure) Chronic iron deficiency anemia Chronic low back pain CKD (chronic kidney disease) COPD (chronic obstructive pulmonary disease) Depression with anxiety Diabetes mellitus 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 mellitus Diverticulitis DNI (do not intubate) DNR (do not resuscitate) Eye irritation Cellulitis per Opt[employer] (Doxy & Eryth/Polymix/Steroid) Functional tremor GERD (gastroesophageal reflux disease) Gout Right foot, swelling/red/tender [ ] trial Rx History of pulmonary embolism Hyperlipidemia Hypertension Hypothyroidism Iron deficiency Moderate obstructive sleep apnea (01/21/20) with significant nocturnal hypoxemia 02/03/20 Sleep Clinic - CPAP ordered, f/u 04/2020 Obesity (BMI 30.0-34.9) DANYELLE (obstructive sleep apnea) Palliative care patient Paroxysmal atrial fibrillation Peripheral vascular disease POLST (Physician Orders for Life-Sustaining Treatment) done with Terra Kebede COMPUTER HARDWARE DEVELOPER on 11/21/19 DNR/DNI Renal mass Rheumatoid arthritis Stroke due to embolism TIA (transient ischemic attack) Vascular dementia Surgical History H/O cardiac catheterization [address] History of left-sided carotid endarterectomy History of right-sided carotid endarterectomy S/P arterial stent leg x2 S/P arteriovenous (AV) fistula creation [facility] Family History Sister Cancer Diabetes Brother Cancer Diabetes Mother , At age 61 Diabetes Father , in 60s, unknown cause No problems noted. Other Heart disease Social History Smoking/Tobacco Use Status: Former Tobacco Use Smoking risk assessment performed?: Yes Alcohol Intake: never Drug use: Never Substance use type: does not use Adopted: No Foster care: No Household members: children Housing: house Number of Children: 3 Do you need help understanding health information?: Always current occupation: Retired; attends [employer] during the day Sexually active: No Do you think of yourself as: straight/heterosexual Current gender identity: female Seatbelt use: always Do you feel safe at home: Yes Do you feel safe in your relationship?: Yes Additional Social history: residing at [facility] Exam Const General: cooperative, healthy appearing, comfortable, no acute distress and well developed Nutritional Appearance: well nourished and obese Orientation: alert, awake and oriented x3 HENMT Head: normal to inspection Ears: hearing grossly normal bilaterally Mouth: mucous membranes dry (lips are slightly dry) Chest Chest: normal inspection of the chest, normal palpation of entire chest wall and no crepitus Resp Effort & Inspection: normal respiratory effort, able to speak in complete sentences and no respiratory distress Auscultation: clear to auscultation bilaterally, no rales, no rhonchi and no wheezes Cardio Rate: regular rate Rhythm: regular rhythm Heart Sounds: S1 normal and S2 normal GI Inspection: normal to inspection, no edema and non-distended Palpation: soft, no hepatosplenomegaly, not firm, no guarding, not rigid and nontender Auscultation: normal bowel sounds Back/Spine/Pelvis Back: no CVA tenderness Thoracic/Lumbar Spine: thoracic and lumbar spine normal to inspection Skin General skin exam: no rashes or lesions noted Trauma: no lacerations or abrasions Neuro General: patient alert, patient awake and patient oriented x3 Cognition: normal cognition Speech: speech normal Extrem General: normal to inspection, capillary refill normal, no pedal edema and no calf tenderness Psych Appearance: grossly normal and well kempt Mental Status: mental status grossly normal Speech and Movement: speech and movement normal
[2020-07-29 23:12] LABS: Bilirubin Negative (Negative); Blood Negative (Negative); Clarity Clear (Clear); Glucose 500 mg/dL (Negative); Ketones Negative (Negative); Leukocyte Esterase Negative (Negative); Nitrite Negative (Negative); Specific Gravity 1.015 (1.005-1.025); Urobilinogen 0.2 EU/dL (Up TO 0.2); pH 5.5 (5-8)
--- NOTE | 2020-07-29 23:23 | DI.RAD_ITS ---
EXAM: XR PORTABLE CHEST AP CLINICAL HISTORY: cough TECHNIQUE: COMPARISON: CR,XR XR CHEST 2V PA LATERAL from 06/22/2020 FINDINGS: Portable semi upright chest was performed. Heart is enlarged. There are subtle patchy areas of incr eased pulmonary radiodensity seen bilaterally particularly in the lung bases. There are few areas of questionable vague nodularity bilaterally in the bases, again question right lower lobe pulmonary no dularity is raised as seen examination of June 22. No gross pleural effusion on this frontal fi lm. IMPRESSION: Nonspecific bilateral pulmonary radiodensities, patchy pneumonia or metastatic disease not excluded. Chest CT recommended for further evaluation. RADIATION DOSE DELIVERED: Total DLP
--- NOTE | 2020-07-29 23:37 | DI.VRAD_ITS ---
PROCEDURE INFORMATION: Exam: XR Chest, 1 View Exam date and time: 07/29/2020 11:24 PM Age: 80 years old Clinical indication: Cough TECHNIQUE: Imaging protocol: XR of the chest Views: 1 view. COMPARISON: CR XR CHEST 2V PA LATERAL 22/06/2020 23:53 FINDINGS: Lungs: Increased bilateral interstitial markings at the lung bases. Previously noted right lower lobe lung nodule is not appreciated on the current study. Hypoventilation. Pleural space: Unremarkable. No pleural effusion. No pneumothorax. Heart/Mediastinum: Cardiomegaly. Vasculature: Atherosclerotic disease. Bones/joints: Unremarkable for patient's age. IMPRESSION: 1. Hypoventilation. 2. Increased interstitial markings at the lung bases may be due to atelectasis or developing infiltrate. 3. Cardiomegaly. Dictated and Authenticated by: Jie Toney MD. Ordering:ALEKSANDR Leonard MD
[2020-07-30 00:07] VITALS: BP 156/64; PULSE 78; RESP 21; O2SAT 97
--- NOTE | 2020-07-30 08:30 | ED.FU.B_ITS ---
I received call from radiology, Dr. Balderas, who over read chest x-ray that was performed yesterday and notes potential increased patchy nodular opacity and recommends follow-up CT imaging to better characterize. I called and spoke with Vanessa SZYMANSKI at the [facility] and discussed new findings noted on radiology over read - she will followup and arrange for additional diagnostic testing and treatment.
--- NOTE | 2020-07-30 09:36 | NUR.NOTE ---
Nursing Note: At Dr.Ryan Whitt's request I faxed the portable chest xray report to the [facility]. Preethi Oliveira
== END 2020-07-30 00:36 | disposition skilled nursing facility (03) ==
LOC: ER 07-30 00:22
PROVIDERS: Emergency Provider Physician Assistant; PCP Student in an Organized Health Care Education/Training Program
DX: E11.65 Type 2 diabetes mellitus with hyperglycemia (principal); R05 Cough; E11.22 Type 2 diabetes mellitus with diabetic chronic kidney disease; Z79.4 Long term (current) use of insulin; I12.9 Hypertensive chronic kidney disease with stage 1 through stage 4 chronic kidney disease, or unspecified chronic kidney disease; N18.9 Chronic kidney disease, unspecified; J44.9 Chronic obstructive pulmonary disease, unspecified; Z87.891 Personal history of nicotine dependence
CPT/HCPCS: 36416; 82962; 93005; 99284; 71045; 81003; 93010; 99285

== ENCOUNTER 2020-11-01 16:52 | Inpatient (IN) | payer MEDICARE, MEDICAID, SELFPAY ==
[2020-11-01] VITALS (29 sets, daily range): BP systolic 128–194; BP diastolic 44–96; PULSE 67–84; RESP 2–27; TEMP 36.4–36.7; O2SAT 92–100
--- NOTE | 2020-11-01 16:45 | RT.EKG_ITS ---
APPROVED REPORT Exam: Resting ECG Patient Location: E HR:69 bpm ECG Measurements Heart Rate 69 AXIS RI 218 P 48 QRSd 98 QRS -34 QT 414 T 83 QTc 443 Conclusion Sinus rhythm. normal P axis, Borderline prolonged RI interval. Low voltage, precordial leads. No significant change versus 07/29/2020
--- NOTE | 2020-11-01 16:48 | ED.GENADUL_ITS ---
Discharge Plan Discharge Details Chief Complaint: GenMedical Admit Date/Time: 11/01/20 19:39 Admit Provider: Fredo Weiss Attending Provider: Fredo Weiss Primary Care Provider: Kristal Quiñonez ED Provider: Aisha Blue Medical Decision Making Patient is a 80 year old female, brought in via EMS from the [facility], with c/c of fatigue. Patient was endorsing this to the provider where she resides. They ordered basic blood work and noted the patient to be anemic with a hemoglobin of 6.1 prompting them to enter to the ED for further evaluation and likely transfusion. Past medical history is significant for CAD, hypothyroidism, diabetes, CKD, COPD, CHF, carotid stenosis, paroxysmal atrial fibrillation, DANYELLE, TIA, CVA, COPD, hyperlipidemia, status post right-sided endarterectomy, stent, GERD. Patient denies any chest pain. She reports she has chronic shortness of breath with no acute changes. Her primary concern at this time point is being very fatigued. She states that she has had balance issues for the past year but no acute change in this. She is also endorsing some left upper quadrant pain. This does not radiate into her back. This pain began a few days ago and has been fairly steady. No change in her appetite. No nausea or vomiting. States that her stool has been black. No diarrhea or constipation. On exam, patient does appear acutely ill. Compared to when I saw her last fall, she does appear to have increased work of breathing and is very pale. Pale conjunctiva. She has scattered crackles throughout. Minimal movement seems to increase her work of breathing. This could be associated with her anemia. Patient does have bilateral lower extremity edema, unclear if this is new or not. Patient does have epigastric discomfort with palpation. No pulsatile mass. She has good distal pulses in all extremities and brisk capillary refill. Differential diagnosis includes GI bleed, anemia, CHF exacerbation, pancreatitis, gastritis. Her history is not consistent with ACS at this point. Patient is not tachycardic or hypoxic, no evidence to suggest pulmonary embol ism. Her abdominal exam does not suggest an acute abdomen. Patient is anticoagulated, has been taking her medications as prescribed. Patient is on metoprolol. FINDINGS: Lungs: Opacities in both bases may represent atelectasis or pneumonia.. Pleural spaces: There may be mild bilateral pleural effusions.. Heart/Mediastinum: Cardiomegaly Bones/joints: Unremarkable. IMPRESSION: 1. Opacities in both bases may represent atelectasis or pneumonia.. 2. There may be mild bilateral pleural effusions.. Patient's white count 12.5, hemoglobin 6.0, hematocrit 21. Patient and I discussed transfusion. She states that she has had a transfusion historically, this was completed several years ago. She and I discussed risk/benefits as well as potential complications associated with transfusion. She would like to move forward with this. I am also concerned about CHF and would like to also attempt to diurese the patient as I am concerned with the volume of blood. Patient does receive 40 mg of Lasix daily and received this this morning. Patient and I discussed goals of care. 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 However, the patient would like to pursue medical management. She would like to be DNR/DNI and does not want to have any surgical management. The patient does have a history of vascular dementia but is alert and oriented at this time and answering questions appropriately. Remaining labs reviewed. Lactate within normal limits. CMP significant for creatinine of 2.3 which is patient's baseline. BNP is elevated at 1160, she has been elevated like this historically. Her troponin is less than 0.05. Lipase within normal limits. Free T4 slightly low 0.73. Urine was contaminated. I have requested type and cross blood. Plan to consult with hospitalist regarding admission. Spoke with the patient's daughter, Fina [phone]. She and I discussed the current condition of her mother. She reports the patient did have a gastric ulcer 2019 which was treated at [facility] [place]. She reports that at that time her mother was not able to undergo any intervention because of her comorbidities that was treated medically. She and I discussed what she says her mother's wishes would be in the event she has become more sick. She advised that her mother has requested to be a DNR/DNI. She would like to have her mother medically managed in regard to replenishing blood products and treating for CHF exacerbation. However, reports that she does not feel that her mother would do well with surgery and that she has expressed her want to have minimal intervention with goal of comfort. 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 Daughter feels that mother did not completely understand the form and is less apprised by her change in wanting further intervention. Spoke with Dr. Weiss regarding admission for the patient's anemia and CHF exacerbation. Patient continues to have increased shortness of breath. Each time The patient has needed to use the commode, she has returned more short of breath initially. Patient was bumped up to 3 L nasal cannula prior to starting the blood. I did reevaluate the patient. She did not appear to be having any kind of reaction from the blood. She remains afebrile, vital signs are stable. However, the patient does exhibit increased work of breathing. She has scant wheezes, fairly similar to her initial, but her crackles are increased. I am concerned that the patient has increased interstitial edema. I reconsulted with Dr. Weiss. At this point, we have decided to give the patient her Lasix now versus waiting until after the first unit of blood. We will give 80 mg of IV Lasix. As the patient is become so dyspneic whenever getting up, will place a Wills. Also requested respiratory therapy evaluation. I am concerned that with patient's multiple comorbidities as well as her anemia, she may have little to no reserve and that she may benefit from going on BiPAP sooner than later. FINDINGS: Tubes, catheters and devices: Overlying EKG wires Lungs: Opacities in both bases may represent atelectasis or pneumonia.. Vascular prominence may represent interstitial edema. Pleural spaces: Moderate left pleural effusion. Smaller right pleural effusion.. Heart/Mediastinum: Unremarkable. No cardiomegaly. Bones/joints: Unremarkable. IMPRESSION: 1. Opacities in both bases may represent atelectasis or pneumonia.. 2. Moderate left pleural effusion. Smaller right pleural effusion.. 3. Vascular prominence may represent interstitial edema. Respiratory therapy at bed side. They evaluated the patient and feel that patient would benefit from BiPAP. Patient appears more anxious. Will give 0.5mg Ativan. Patient has had 500 cc of urine out. Patient was only able to tolerate the BiPAP for short period of time but already seems to have had been from this as her breathing is improved. She is able to speak more fluently. Her lung sounds have improved and she has more air movement. As the patient did not wish to have the BiPAP on, was retrialed on nasal cannula and her oxygen demand has gone down and she is doing much better. Patient is becoming more confused. This is likely associated with her known dementia and possibly sundowning. She is redirectable. Blood is currently running, patient is tolerating this. Running blood and very slowly to prevent fluid overload. HPI General Mode of arrival: EMS . Date/Time Provider Initiated Documentation: 11/01/20 17:05 . Limitations to Documentation: no limitations . Information obtained by: patient, RN/MD (Dr. Prescott called prior to patient's arri jessie), RN notes reviewed and old records reviewed . History of Present Illness 80 year old F presents to the emergency department with the chief complaint of fatigue, anemia, LUQ abdominal pain, described as severe, with intensity rated at 10. Quality is described as stabbing, and is localized to the abdomen. Patient reports no radiation. Patient started experiencing this day(s) (2) and it has been constant. No relieving factors improve symptom(s), No exacerbating factors reported . Patient notes shortness of breath (reports chronic, on O2 at home, no caute change ) and weakness (generally weak and fatigued); denies chest pain, cough, fever/chills, headaches, loss of appetite, nausea/vomiting, rash and syncope. Patient did receive the following treatments prior to arrival, none Related Data Home Medications Medication Instructions Recorded Confirmed dicyclomine 20 mg PO DAILY PRN 05/20/19 11/01/20 ferrous sulfate 325 mg PO DAILY 05/20/19 11/01/20 Albuterol-Ipatropium 3 ml INHALATION 4-6XD PRN #60 each 05/26/19 05/05/20 fluticasone 250 mcg-salmeterol 50 1 inh IH BID 10/02/19 11/01/20 mcg/dose blistr powdr for inhalation levothyroxine 75 mcg capsule 25 mcg PO DAILY 10/02/19 11/01/20 Oxygen #1 each 10/03/19 07/29/20 albuterol sulfate 90 mcg/actuation 2 puff IH Q6H PRN 10/03/19 11/01/20 aerosol inhaler Portable Oxygen System #1 ea 10/24/19 07/29/20 pen needle, diabetic 31 gauge x #200 each 10/24/19 07/29/20/ pen needle, diabetic 31 gauge x #300 each 10/24/19 07/29/2011/16 incentive spirometer #1 ea 01/02/20 07/29/20 paroxetine HCl 20 mg tablet 20 mg PO DAILY #90 tab 01/20/20 11/01/20 CPAP INHALATION 02/04/20 04/28/20 atorvastatin 40 mg tablet 40 mg PO DAILY #90 tab 02/06/20 11/01/20 pantoprazole 40 mg tablet,delayed 40 mg PO BID@0730,1999 #180 tab 03/23/20 11/01/20 release amlodipine 2.5 mg tablet 2.5 mg PO DAILY #90 tab 04/15/20 11/01/20 metoprolol succinate 25 mg 25 mg PO DAILY #90 tab 04/15/20 11/01/20 tablet,extended release 24 hr allopurinol 100 mg PO DAILY 04/18/20 11/01/20 insulin glargine 40 unit SUBCUT BID MDD 120 units 04/18/20 11/01/20 furosemide 40 mg PO DAILY 04/24/20 11/01/20 isosorbide dinitrate 30 mg tablet 30 mg PO BID #60 tab 04/26/20 11/01/20 nitroglycerin 0.4 mg sublingual 0.4 mg SUBLINGUAL Q5M PRN #50 tab 04/26/20 11/01/20 tablet apixaban 2.5 mg tablet 2.5 mg PO BID #60 tab 05/05/20 11/01/20 buspirone 7.5 mg tablet 7.5 mg PO DAILY #90 tab 05/05/20 11/01/20 gabapentin 100 mg capsule 200 mg PO BID #180 cap 05/05/20 11/01/20 Tradjenta 5 mg PO DAILY 06/22/20 11/01/20 hydralazine 25 mg PO DAILY 06/22/20 11/01/20 Lantus Solostar U-100 Insulin 30 unit SUBCUT HS 07/29/20 11/01/20 acetaminophen [Tylenol] 650 mg PO Q6H PRN 07/29/20 11/01/20 cholecalciferol (vitamin D3) 50 mcg PO DAILY 07/29/20 11/01/20 [Vitamin D3] docusate sodium 100 mg PO DAILY 07/29/20 11/01/20 insulin aspart U-100 [Novolog See Rx Instructions .ROUTE .COMPLEX 07/29/20 11/01/20 U-100 Insulin aspart] melatonin 10 mg PO HS 07/29/20 11/01/20 sucralfate 1 g PO QID 07/29/20 11/01/20 trazodone 50 mg PO HS 07/29/20 11/01/20 Previous Rx's Medication Instructions Recorded Albuterol-Ipatropium 3 ml INHALATION 4-6XD PRN #60 each 05/26/19 Portable Oxygen System #1 ea 10/24/19 pen needle, diabetic 31 gauge x #200 each 10/24/1911/16 pen needle, diabetic 31 gauge x #300 each 10/24/1911/16 incentive spirometer #1 ea 01/02/20 paroxetine HCl 20 mg tablet 20 mg PO DAILY #90 tab 01/20/20 atorvastatin 40 mg tablet 40 mg PO DAILY #90 tab 02/06/20 pantoprazole 40 mg tablet,delayed 40 mg PO BID@0730,2000 #180 tab 03/23/20 release amlodipine 2.5 mg tablet 2.5 mg PO DAILY #90 tab 04/15/20 metoprolol succinate 25 mg 25 mg PO DAILY #90 tab 04/15/20 tablet,extended release 24 hr isosorbide dinitrate 30 mg tablet 30 mg PO BID #60 tab 04/26/20 nitroglycerin 0.4 mg sublingual 0.4 mg SUBLINGUAL Q5M PRN #50 tab 04/26/20 tablet apixaban 2.5 mg tablet 2.5 mg PO BID #60 tab 05/05/20 buspirone 7.5 mg tablet 7.5 mg PO DAILY #90 tab 05/05/20 gabapentin 100 mg capsule 200 mg PO BID #180 cap 05/05/20 Allergies Allergy/AdvReac Type Severity Reaction Status Date / Time Morphine AdvReac Severe Agitation Uncoded 06/22/20 23:47 General JOSH: 3 Review of Systems Constitutional Constitutional: Reports as per HPI, Denies chills, Reports fatigue, Denies fever(s), Denies headache(s), Reports lethargy and Denies poor appetite Eyes Eyes: Denies change in vision ENT Ears, Nose, Mouth, and Throat: Denies dizziness and Denies headache(s) Cardiovascular Cardiovascular: Reports as per HPI, Denies dyspnea and Denies dyspnea on exertion Respiratory Respiratory: Reports as per HPI, Denies chest congestion, Denies cough, Denies pain on inspiration, Denies pain with cough, Denies dyspnea, Denies dyspnea on exertion and Denies wheezing Gastrointestinal Gastrointestinal: Reports as per HPI, Reports abdominal pain, Denies hematochezia, Denies diarrhea, Denies nausea and Denies vomiting Genitourinary Genitourinary: Denies hematuria, Denies flank pain and Denies urinary urgency Musculoskeletal Musculoskeletal: Reports as per HPI and Denies back pain Integumentary/Breasts Skin/Breast: Reports as per HPI and Denies rash Neurologic Neurologic: Reports as per HPI, Denies dizziness and Denies headache(s) Endocrine Endocrine: Reports fatigue Allergic/Immunologic Allergic/Immunologic: Denies wheezing [facility] Medical History (Updated 11/01/20 @ 19:35 by Fredo Weiss MD) Anemia CAD (coronary artery disease) Carotid stenosis s/p bilateral CEA Chronic diastolic CHF (congestive heart failure) Chronic iron deficiency anemia Chronic low back pain CKD (chronic kidney disease) COPD (chronic obstructive pulmonary disease) Depression with anxiety Diabetes mellitus 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 mellitus Diverticulitis DNI (do not intubate) DNR (do not resuscitate) Eye irritation Cellulitis per [employer] (Doxy & Eryth/Polymix/Steroid) Functional tremor GERD (gastroesophageal reflux disease) Gout Right foot, swelling/red/tender [ ] trial Rx History of pulmonary embolism Hyperlipidemia Hypertension Hypothyroidism Iron deficiency Moderate obstructive sleep apnea (01/21/20) with significant nocturnal hypoxemia 02/03/20 Sleep Clinic - CPAP ordered, f/u 04/2020 Obesity (BMI 30.0-34.9) DANYELLE (obstructive sleep apnea) Palliative care patient Paroxysmal atrial fibrillation Peripheral vascular disease POLST (Physician Orders for Life-Sustaining Treatment) done with Terra Kebede [employer] on 11/21/19 DNR/DNI Renal mass Rheumatoid arthritis Stroke due to embolism TIA (transient ischemic attack) Vascular dementia Surgical History H/O cardiac catheterization [address] History of left-sided carotid endarterectomy History of right-sided carotid endarterectomy S/P arterial stent leg x2 S/P arteriovenous (AV) fistula creation [facility] in [place] Family History Sister Cancer Diabetes Brother Cancer Diabetes Mother , At age 61 Diabetes Father , in 60s, unknown cause No problems noted. Other Heart disease Social History Smoking/Tobacco Use Status: Former Tobacco Use Smoking risk assessment performed?: Yes Alcohol Intake: never Drug use: Never Substance use type: does not use Adopted: No Foster care: No Household members: children Housing: house Number of Children: 3 Do you need help understanding health information?: Always current occupation: Retired; attends [employer] during the day Sexually active: No Do you think of yourself as: straight/heterosexual Current gender identity: female Seatbelt use: always Do you feel safe at home: Yes Do you feel safe in your relationship?: Yes Additional Social history: residing at [facility] Exam Const General: cooperative, uncomfortable, no acute distress, well developed and ill appearing acutely Nutritional Appearance: well nourished and overweight Orientation: alert, awake and oriented x3 HENMT Head: normal to inspection Ears: hearing grossly normal bilaterally Mouth: moist mucous membranes Eyes Visual Asher: normal visual asher by confrontation Alignment and Position: alignment normal and position normal Periorbital: periorbital findings normal Pupils: PERRL EOM: EOM intact bilaterally Neck Neck: normal visual inspection, full ROM, no lymphadenopathy, no meningeal signs and trachea midline Chest Chest: normal inspection of the chest, normal palpation of entire chest wall and no crepitus Resp Effort & Inspection: normal respiratory effort, able to speak in complete sentences and no respiratory distress Auscultation: not clear to auscultation bilaterally, crackles (diffuse faint crackles), no rales, no rhonchi and no wheezes Cardio Rate: regular rate Rhythm: regular rhythm Heart Sounds: S1 normal and S2 normal GI Inspection: no edema, distended, no visible herniation and no visible pulsation Palpation: firm (distended and firm), no guarding, no hepatomegaly, no hernias, no masses, no pulsatile masses, not rigid and tender in the epigastrum and in the LUQ; Simeon's sign negative and with no rebound tenderness Percussion: normal to percussion Auscultation: hypoactive bowel sounds Back/Spine/Pelvis Back: no CVA tenderness Thoracic/Lumbar Spine: thoracic and lumbar spine normal to inspection Skin General skin exam: no rashes or lesions noted Trauma: no lacerations or abrasions Neuro General: patient alert, patient awake and patient oriented x3 Cranial Nerves: CN's II-XI intact bilaterally Cognition: normal cognition Speech: speech normal Motor: muscle tone normal throughout Extrem General: normal to inspection, capillary refill normal, pedal edema present (1+ edema), no calf tenderness and other (brisk capillary refill and 2+ distal pulse s in all extremities) Psych Appearance: grossly normal and well kempt Mental Status: mental status grossly normal Speech and Movement: speech and movement normal Critical Care Time Critical Care Time Critical Care Time: Yes Total Critical Care Time: 40 Attestation: I spent 40 minutes of critical care time with this patient managing her critical anemia and respiratory status
--- NOTE | 2020-11-01 17:30 | DI.RAD_ITS ---
EXAM: XR CHEST 2V PA LATERAL CLINICAL HISTORY: lower CP/upper abd pain, crackles throughout TECHNIQUE: 2D digital imaging was performed. COMPARISON: CR,XR XR PORTABLE CHEST AP from 07/29/2020 FINDINGS: MEDIASTINUM: Normal. HEART: Cardiomegaly. PULMONARY VASCULATURE: Normal. LUNGS: Bilateral interstitial infiltrates. There also appear to be basilar infiltrates, left greater than right. PLEURAL SPACE: Small bilateral pleural effusions, left greater than right. BONE:Within normal limits for the patient's age. OTHER FINDINGS:Normal. IMPRESSION: 1. Cardiomegaly and bilateral pleural effusions with interstitial prominence which may reflect conges tive heart failure. Please correlate clinically. 2. Bilateral basilar infiltrates which may represent atelectasis or pneumonia. DATA REPOSITORY: RADIATION DOSE DELIVERED:
[2020-11-01 18:07] LABS: Abs Immature Grans 0.17 10^3/uL (0.0-0.06); Absolute Basophil Count 0.08 10^3/uL (0.0-0.2); Absolute Eosinophil Count 0.38 10^3/uL (0.0-0.7); Absolute Lymphocyte Count 1.64 10^3/uL (1.2-3.4); Absolute Monocyte Count 0.74 10^3/uL (0.1-0.8); Basophils % 0.6; HCT 21.2 % (36.0-46.0); Immature Grans % 1.4; Lymphocytes % 13.1; MCH 24.7 pg (27.0-33.0); MCHC 28.3 % (32.0-36.0); MCV 87.2 fL (80-95); MPV 10.1 fL (8.0-11.0); Monocytes % 5.9; Nucleated RBC 0 %; Platelet Count 275 10^3/uL (130-400); RBC 2.43 10^6/uL (3.93-5.22); RDW 18.3 % (11.7-14.6); RDW-SD 57.6 fL; WBC 12.52 10^3/uL (4.4-10.8)
[2020-11-01 18:08] LABS: Lactate 0.8 mmol/L (0.6-1.4)
[2020-11-01 18:13] LABS: Absolute Neutrophil Count 9.52 10^3/uL (1.2-6.7)
[2020-11-01 18:22] LABS: Lipase 128 U/L (73-393)
[2020-11-01 18:24] LABS: INR 1.1 (0.9-1.1); PTT Activated 31.5 sec (21.0-27.5); Prothrombin Time 10.9 sec (9.3-11.0)
[2020-11-01 18:34] LABS: ALT 17 U/L (14-59); AST 12 U/L (15-37); Albumin 3.2 g/dL (3.4-5.0); Alkaline Phosphatase 83 U/L (46-116); Anion Gap 4.5 mmol/L (3-11); BUN 48 mg/dL (7-18); Bilirubin, Total 0.3 mg/dL (0.2-1.0); CO2 31.5 mmol/L (21.0-32.0); CREATININE 2.3 mg/dL (0.55-1.02); Calcium 8.6 mg/dL (8.5-10.1); Chloride 102 mmol/L (98-107); Estimated GFR 20.51 (mL/min/1.73m2); Glucose 118 mg/dL (74-106); Potassium 4.3 mmol/L (3.5-5.1); Sodium 138 mmol/L (136-145); Total Protein 7.4 g/dL (6.4-8.2)
[2020-11-01 18:35] LABS: Troponin I < 0.05 ng/mL (<0.06)
--- NOTE | 2020-11-01 18:37 | DI.VRAD_ITS ---
PROCEDURE INFORMATION: Exam: XR Chest Exam date and time: 11/01/2020 6:17 PM Age: 80 years old Clinical indication: Chest pain; Patient HX: Lower cp/upper abd pain, crackles throughout TECHNIQUE: Imaging protocol: XR of the chest Views: 2 views. COMPARISON: CR XR PORTABLE CHEST AP 07/29/2020 11:10 PM FINDINGS: Lungs: Opacities in both bases may represent atelectasis or pneumonia.. Pleural spaces: There may be mild bilateral pleural effusions.. Heart/Mediastinum: Cardiomegaly Bones/joints: Unremarkable. IMPRESSION: 1. Opacities in both bases may represent atelectasis or pneumonia.. 2. There may be mild bilateral pleural effusions.. Dictated and Authenticated by: Afshan Zambrano MD. Ordering:ALEKSANDR Leonard MD
[2020-11-01 18:45] LABS: Bilirubin Negative (Negative); Blood Negative (Negative); Clarity Sl Cloudy (Clear); Glucose Negative (Negative); Ketones Negative (Negative); Leukocyte Esterase Moderate (Negative); Nitrite Negative (Negative); Specific Gravity 1.015 (1.005-1.025); Urobilinogen 0.2 EU/dL (Up TO 0.2); pH 5.5 (5-8)
[2020-11-01 18:50] LABS: TSH (W/Ref FT4) 5.23 uIU/mL (0.36-3.74)
[2020-11-01 19:00] LABS: Bacteria Few HPF (Negative); C & S Indicated? No/Sq. Contamination; Crystals Few Amorphous HPF (Negative); Epithelial Cells Many HPF (Negative); Mucus Negative (Negative); Other Cells Few Transitional (Negative); RBC Negative HPF (0-2)
[2020-11-01 19:08] LABS: FREE T4 0.73 ng/dL (0.76-1.46)
--- NOTE | 2020-11-01 19:26 | HPE_ITS ---
Date of service: 11/01/20 Time of Service: 19:26 Assessment and Plan Assessment and plan (1) GI bleed: Status: Chronic Assessment and plan: GI bleed in setting of anticoagulation. Will hold DOAC, transfuse at least 2 units pRBC, and IV PPI. Probably an element of CHF here as well, will add Lasix between units. Will consult surgery in AM to consider endoscopies. Usual meds as is otherwise except will hold insulin as patient will be NPO for possible procedure. Remains DNR. History of Present Illness History of Present Illness Chief Complaint: fatigue Narrative: 80 female with multiplke problems, on Eliquis for PAF. Has listed h/o GI bleed but I cannot find details. At any rate comes in tonight with report to ER of fatigue, unspecified duration (To me she says she feels fine). In ER findings of note for HCT 21 and heme + stool. No abd pain. States she is always SOB and no change. She is olrdered for 2 unit pRBC and admitted for further management. CXR shows bilateral pleural effusion and basilar atelectasis vs opacities. BNP pending. To my read there is probably mild pulmonary edema. Note recent [facility] form stating no hospitalization unless care needs cannot otherwise be met, but ER reports conversation today in which patient specifically asks for attention here. Review of Systems All systems reviewed & are unremarkable except as noted in HPI and below PFSH Medical History (Updated 11/01/20 @ 19:35 by Fredo Weiss MD) Anemia CAD (coronary artery disease) Carotid stenosis s/p bilateral CEA Chronic diastolic CHF (congestive heart failure) Chronic iron deficiency anemia Chronic low back pain CKD (chronic kidney disease) COPD (chronic obstructive pulmonary disease) Depression with anxiety Diabetes mellitus 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 mellitus Diverticulitis DNI (do not intubate) DNR (do not resuscitate) Eye irritation Cellulitis per [employer] (Doxy & Eryth/Polymix/Steroid) Functional tremor GERD (gastroesophageal reflux disease) Gout Right foot, swelling/red/tender [ ] trial Rx History of pulmonary embolism Hyperlipidemia Hypertension Hypothyroidism Iron deficiency Moderate obstructive sleep apnea (01/21/20) with significant nocturnal hypoxemia 02/03/20 Sleep Clinic - CPAP ordered, f/u 04/2020 Obesity (BMI 30.0-34.9) DANYELLE (obstructive sleep apnea) Palliative care patient Paroxysmal atrial fibrillation Peripheral vascular disease POLST (Physician Orders for Life-Sustaining Treatment) done with [employer]ra [employer] on 11/21/19 DNR/DNI Renal mass Rheumatoid arthritis Stroke due to embolism TIA (transient ischemic attack) Vascular dementia Surgical History H/O cardiac catheterization [address] History of left-sided carotid endarterectomy History of right-sided carotid endarterectomy S/P arterial stent leg x2 S/P arteriovenous (AV) fistula creation [facility] Family History Sister Cancer Diabetes Brother Cancer Diabetes Mother , At age 61 Diabetes Father , in 60s, unknown cause No problems noted. Other Heart disease Social History Smoking/Tobacco Use Status: Former Tobacco Use Smoking risk assessment performed?: Yes Alcohol Intake: never Drug use: Never Substance use type: does not use Adopted: No Foster care: No Household members: children Housing: house Number of Children: 3 Do you need help understanding health information?: Always current occupation: Retired; attends [employer] during the day Sexually active: No Do you think of yourself as: straight/heterosexual Current gender identity: female Seatbelt use: always Do you feel safe at home: Yes Do you feel safe in your relationship?: Yes Additional Social history: residing at [facility] Home Medications and Allergies Allergies Allergy/AdvReac Type Severity Reaction Status Date / Time Morphine AdvReac Severe Agitation Uncoded 06/22/20 23:47 Home Medications Medication Instructions Recorded Confirmed Type dicyclomine 20 mg PO DAILY PRN 05/20/19 11/01/20 History ferrous sulfate 325 mg PO DAILY 05/20/19 11/01/20 History Albuterol-Ipatropium 3 ml INHALATION 4-6XD PRN #60 each 05/26/19 05/05/20 Rx fluticasone 250 mcg-salmeterol 50 1 inh IH BID 10/02/19 11/01/20 History mcg/dose blistr powdr for inhalation levothyroxine 75 mcg capsule 25 mcg PO DAILY 10/02/19 11/01/20 History Oxygen #1 each 10/03/19 07/29/20 History albuterol sulfate 90 mcg/actuation 2 puff IH Q6H PRN 10/03/19 11/01/20 History aerosol inhaler Portable Oxygen System #1 ea 10/24/19 07/29/20 Rx pen needle, diabetic 31 gauge x #200 each 10/24/19 07/29/20 Rx 3/16 pen needle, diabetic 31 gauge x #300 each 10/24/19 07/29/20 Rx 16 incentive spirometer #1 ea 01/02/20 07/29/20 Rx paroxetine HCl 20 mg tablet 20 mg PO DAILY #90 tab 01/20/20 11/01/20 Rx CPAP INHALATION 02/04/20 04/28/20 History atorvastatin 40 mg tablet 40 mg PO DAILY #90 tab 02/06/20 11/01/20 Rx pantoprazole 40 mg tablet,delayed 40 mg PO BID@0730,1999 #180 tab 03/23/20 11/01/20 Rx release amlodipine 2.5 mg tablet 2.5 mg PO DAILY #90 tab 04/15/20 11/01/20 Rx metoprolol succinate 25 mg 25 mg PO DAILY #90 tab 04/15/20 11/01/20 Rx tablet,extended release 24 hr allopurinol 100 mg PO DAILY 04/18/20 11/01/20 History insulin glargine 40 unit SUBCUT BID MDD 120 units 04/18/20 11/01/20 History furosemide 40 mg PO DAILY 04/24/20 11/01/20 History isosorbide dinitrate 30 mg tablet 30 mg PO BID #60 tab 04/26/20 11/01/20 Rx nitroglycerin 0.4 mg sublingual 0.4 mg SUBLINGUAL Q5M PRN #50 tab 04/26/20 11/01/20 Rx tablet apixaban 2.5 mg tablet 2.5 mg PO BID #60 tab 05/05/20 11/01/20 Rx buspirone 7.5 mg tablet 7.5 mg PO DAILY #90 tab 05/05/20 11/01/20 Rx gabapentin 100 mg capsule 200 mg PO BID #180 cap 05/05/20 11/01/20 Rx Tradjenta 5 mg PO DAILY 06/22/20 11/01/20 History hydralazine 25 mg PO DAILY 06/22/20 11/01/20 History Lantus Solostar U-100 Insulin 30 unit SUBCUT HS 07/29/20 11/01/20 History acetaminophen [Tylenol] 650 mg PO Q6H PRN 07/29/20 11/01/20 History cholecalciferol (vitamin D3) 50 mcg PO DAILY 07/29/20 11/01/20 History [Vitamin D3] docusate sodium 100 mg PO DAILY 07/29/20 11/01/20 History insulin aspart U-100 [Novolog See Rx Instructions .ROUTE .COMPLEX 07/29/20 11/01/20 History U-100 Insulin aspart] melatonin 10 mg PO HS 07/29/20 11/01/20 History sucralfate 1 g PO QID 07/29/20 11/01/20 History trazodone 50 mg PO HS 07/29/20 11/01/20 History Exam Narrative Exam Narrative: 166/53, 72, 36.5, 19, 96% RA. HEENT atraumatic; neck supple, JVP approx 10 cm; lungs bibasilar rales; heart distant but RRR; abdomen soft and NT; extremities 1+ pedal edema; neuro Ox3, moves all 4s. Results Labs Result diagrams: 11/01/20 17:53 11/01/20 17:53 Labs: Laboratory Results - last 24 hr 11/01/20 11/01/20 11/01/20 06:45 17:53 17:53 WBC 12.52 H RBC 2.43 L Hgb 6.0 L* Hct 21.2 L MCV 87.2 MCH 24.7 L MCHC 28.3 L RDW 18.3 H Plt Count 275 MPV 10.1 Immature Gran % 1.4 Neutrophils % 76.0 Lymphocytes % 13.1 Monocytes % 5.9 Eosinophils % 3.0 Basophils % 0.6 Nucleated RBC % 0 Absolute Neutrophils 9.52 H Absolute Lymphocytes 1.64 Absolute Monocytes 0.74 Absolute Eosinophils 0.38 Absolute Basophils 0.08 PT INR APTT VBG Lactate Sodium 138 Potassium 4.3 Chloride 102 Carbon Dioxide 31.5 Anion Gap 4.5 BUN 48 H Creatinine 2.3 H Estimated GFR/1.73 m2 20.51 Glucose 118 H Calcium 8.6 Magnesium 2.0 Total Bilirubin 0.3 AST 12 L ALT 17 Alkaline Phosphatase 83 Troponin I < 0.05 Total Protein 7.4 Albumin 3.2 L Lipase TSH 5.23 H Free T4 0.73 L Urine Color Urine Clarity Urine pH Ur Specific [place] Urine Protein Urine Ketones Urine Blood Urine Nitrite Urine Bilirubin Urine Urobilinogen Ur Leukocyte Esterase Urine RBC Urine WBC Ur Epithelial Cells Urine Crystals Urine Bacteria Urine Mucus Urine Other Ur Culture Indicated? Urine Glucose Patient ABO/Rh Antibody Screen Crossmatch 11/01/20 11/01/20 11/01/20 17:53 17:53 17:53 WBC RBC Hgb Hct MCV MCH MCHC RDW Plt Count MPV Immature Gran % Neutrophils % Lymphocytes % Monocytes % Eosinophils % Basophils % Nucleated RBC % Absolute Neutrophils Absolute Lymphocytes Absolute Monocytes Absolute Eosinophils Absolute Basophils PT 10.9 INR 1.1 APTT 31.5 H VBG Lactate Sodium Potassium Chloride Carbon Dioxide Anion Gap BUN Creatinine Estimated GFR/1.73 m2 Glucose Calcium Magnesium Total Bilirubin AST ALT Alkaline Phosphatase Troponin I Total Protein Albumin Lipase 128 TSH Free T4 Urine Color Urine Clarity Urine pH Ur Specific [place] Urine Protein Urine Ketones Urine Blood Urine Nitrite Urine Bilirubin Urine Urobilinogen Ur Leukocyte Esterase Urine RBC Urine WBC Ur Epithelial Cells Urine Crystals Urine Bacteria Urine Mucus Urine Other Ur Culture Indicated? Urine Glucose Patient ABO/Rh A Positive Antibody Screen Negative Crossmatch See Detail 11/01/20 11/01/20 17:53 18:38 WBC RBC Hgb Hct MCV MCH MCHC RDW Plt Count MPV Immature Gran % Neutrophils % Lymphocytes % Monocytes % Eosinophils % Basophils % Nucleated RBC % Absolute Neutrophils Absolute Lymphocytes Absolute Monocytes Absolute Eosinophils Absolute Basophils PT INR APTT VBG Lactate 0.8 Sodium Potassium Chloride Carbon Dioxide Anion Gap BUN Creatinine Estimated GFR/1.73 m2 Glucose Calcium Magnesium Total Bilirubin AST ALT Alkaline Phosphatase Troponin I Total Protein Albumin Lipase TSH Free T4 Urine Color Yellow Urine Clarity Sl cloudy Urine pH 5.5 Ur Specific [place] 1.015 Urine Protein Negative Urine Ketones Negative Urine Blood Negative Urine Nitrite Negative Urine Bilirubin Negative Urine Urobilinogen 0.2 Ur Leukocyte Esterase Moderate H Urine RBC Negative Urine WBC 5-10 Ur Epithelial Cells Many Urine Crystals Few amorphous Urine Bacteria Few Urine Mucus Negative Urine Other Few transitional Ur Culture Indicated? No/sq. contamination Urine Glucose Negative Patient ABO/Rh Antibody Screen Crossmatch Last Vital Signs Temp 36.5 C 11/01/20 16:56 Pulse 72 11/01/20 19:15 Resp 19 11/01/20 19:15 BP 166/53 H 11/01/20 19:15 Pulse Ox 96 11/01/20 19:15 COVID-19 Screening Have you, or household traveled for leisure in last 14 days?: No Had IN PERSON contact w/suspected or confirmed C-19 person: No
[2020-11-01 19:30] LABS: NT-proBNP 1160 pg/mL (<300)
--- NOTE | 2020-11-01 20:09 | NUR.NOTE ---
Nursing Note: 1st unit start 1953 at rate of 75c/hr. This RN 1:1 in room for first 15 mins. pt remains on full cardiac monitoring.
--- NOTE | 2020-11-01 20:15 | DI.RAD_ITS ---
EXAM: XR PORTABLE CHEST AP CLINICAL HISTORY: increased SOB TECHNIQUE: COMPARISON: CR,XR XR PORTABLE CHEST AP from 07/29/2020 CR,XR XR CHEST 2V PA LATERAL from 11/01/2020 CR,XR XR CHEST 2V PA LATERAL from 11/01/2020 FINDINGS: Portable AP chest at 2025 hours. Note is again made of cardiomegaly and bilateral pleural effusions. There are bilateral patchy and diffuse intrapulmonary infiltrates, worse since examination obtained earlier today. Findings are consistent with CHF, superimposed multifocal pneumonitis, ARDS, etc not excluded. IMPRESSION: RADIATION DOSE DELIVERED: Total DLP
--- NOTE | 2020-11-01 20:29 | DI.VRAD_ITS ---
PROCEDURE INFORMATION: Exam: XR Chest Exam date and time: 11/01/2020 8:23 PM Age: 80 years old Clinical indication: Patient HX: Increased shortness of breath TECHNIQUE: Imaging protocol: XR of the chest Views: 1 view. COMPARISON: CR XR CHEST 2V PA LATERAL 11/01/2020 6:08 PM FINDINGS: Tubes, catheters and devices: Overlying EKG wires Lungs: Opacities in both bases may represent atelectasis or pneumonia.. Vascular prominence may represent interstitial edema. Pleural spaces: Moderate left pleural effusion. Smaller right pleural effusion.. Heart/Mediastinum: Unremarkable. No cardiomegaly. Bones/joints: Unremarkable. IMPRESSION: 1. Opacities in both bases may represent atelectasis or pneumonia.. 2. Moderate left pleural effusion. Smaller right pleural effusion.. 3. Vascular prominence may represent interstitial edema. Dictated and Authenticated by: Afshan Zambrano MD. Ordering:ALEKSANDR Leonard MD
--- NOTE | 2020-11-01 20:29 | NUR.NOTE ---
Nursing Note: (2009 )STOP TRANSFUSION. Pt stated she felt pressure in her mid chest with shortness of breath. blood stopped, vitals taken Aisha Yadav notified and at bedside.
[2020-11-01 20:32] LABS: Troponin I < 0.05 ng/mL (<0.06)
[2020-11-01] MEDS: Albuterol/Ipratropium 3 ML UPD VIAL (20:35)
[2020-11-01] MEDS: Furosemide 100 MG/10 ML VIAL 80 MG IVP (20:35)
[2020-11-01 20:40] LABS: Source Nasal/Nares
[2020-11-01] MEDS: LORazepam 2 MG/ML VIAL 0.5 MG IVP (20:53)
[2020-11-01 21:18] LABS: COVID-19 PCR Negative (Negative); Influenza A PCR Negative (Negative); Influenza B PCR Negative (Negative); RSV PCR Negative (Negative)
--- NOTE | 2020-11-01 21:21 | NUR.NOTE ---
Nursing Note: This RN and RT enters room, pt takes off bipap and room air 77%. Pt states loudly it's done I'm done wearing this. Dr Weiss in room, states pt on 3L NC O2 sats 96% Per Dr Weiss to restart blood products. Over 4 hours.
--- NOTE | 2020-11-01 21:45 | NUR.NOTE ---
Nursing Note: This RN in room charting, pt suddenly puts herself to end of bed stating, I need to stand This RN reminds and educates pt regarding safety and communicating needs such as needing to stretch her legs. Pt adamant she will stand with this RNs help.RN calls for assistance.pt has large BM on commode without incident. GCS 15
[2020-11-01] MEDS: Melatonin 3 MG TAB 9 MG PO (23:48)
[2020-11-01] MEDS: Gabapentin 100 MG CAP 200 MG PO (23:48)
[2020-11-01] MEDS: traZODone 50 MG TAB PO (23:48)
[2020-11-01] MEDS: Pantoprazole 40 MG VIAL IVP (23:48)
[2020-11-01] MEDS: Normal Saline Flush 10 ML SYR IVP (23:48)
[2020-11-02] VITALS (19 sets, daily range): BP systolic 115–193; BP diastolic 52–77; PULSE 55–88; RESP 11–24; TEMP 35.9–36.9; O2SAT 93–100
[2020-11-02] MEDS: Insulin Aspart 300 UNITS/3 ML PEN SC (00:03)
[2020-11-02] MEDS: Furosemide 40 MG/4 ML VIAL IVP ×2 (01:00→19:35)
[2020-11-02] MEDS: Acetaminophen 325 MG TAB 650 MG PO ×2 (01:00→13:57)
[2020-11-02] MEDS: Levothyroxine 25 MCG TAB PO (05:45)
[2020-11-02 09:41] LABS: Abs Immature Grans 0.16 10^3/uL (0.0-0.06); Absolute Basophil Count 0.08 10^3/uL (0.0-0.2); Absolute Eosinophil Count 0.35 10^3/uL (0.0-0.7); Absolute Lymphocyte Count 1.44 10^3/uL (1.2-3.4); Absolute Monocyte Count 0.59 10^3/uL (0.1-0.8); Basophils % 0.7; HCT 30.9 % (36.0-46.0); HGB 9.3 g/dL (11.2-15.7); Immature Grans % 1.4; Lymphocytes % 12.5; MCH 26.2 pg (27.0-33.0); MCHC 30.1 % (32.0-36.0); MPV 9.8 fL (8.0-11.0); Monocytes % 5.1; Neutrophils % 77.3; Nucleated RBC 0 %; Platelet Count 276 10^3/uL (130-400); RBC 3.55 10^6/uL (3.93-5.22); RDW 17.2 % (11.7-14.6); RDW-SD 53.5 fL
[2020-11-02 09:44] LABS: Absolute Neutrophil Count 8.89 10^3/uL (1.2-6.7)
[2020-11-02] MEDS: Budesonide/Formoterol 160/4.5 6 GM 60 PUFF INH IH ×2 (09:44→19:48)
[2020-11-02] MEDS: Pantoprazole 40 MG VIAL 80 MG IVP ×2 (09:46→21:06)
[2020-11-02] MEDS: Normal Saline Flush 10 ML SYR IVP ×2 (09:46→21:06)
[2020-11-02] MEDS: busPIRone 15 MG TAB 7.5 MG PO (09:47)
[2020-11-02] MEDS: amLODIPine 2.5 MG TAB PO (09:47)
[2020-11-02] MEDS: Gabapentin 100 MG CAP 200 MG PO ×2 (09:47→19:42)
[2020-11-02] MEDS: Isosorbide Dinitrate 10 MG TAB 30 MG PO ×2 (09:47→19:42)
[2020-11-02] MEDS: Docusate Sodium 100 MG CAP PO (09:48)
[2020-11-02] MEDS: Metoprolol CR 25 MG TABCR PO (09:48)
[2020-11-02] MEDS: hydrALAZINE 25 MG TAB PO (09:48)
[2020-11-02] MEDS: Sucralfate 1 GM TAB PO ×3 (09:48→21:48)
[2020-11-02] MEDS: PARoxetine 20 MG TAB PO (09:48)
[2020-11-02] MEDS: Allopurinol 100 MG TAB PO (09:48)
[2020-11-02 09:57] LABS: Anion Gap 6.3 mmol/L (3-11); BUN 47 mg/dL (7-18); CO2 35.7 mmol/L (21.0-32.0); Chloride 100 mmol/L (98-107); Glucose 115 mg/dL (74-106); Potassium 4.2 mmol/L (3.5-5.1); Sodium 142 mmol/L (136-145)
[2020-11-02 10:01] LABS: Troponin I < 0.05 ng/mL (<0.06)
--- NOTE | 2020-11-02 13:28 | PCNE_ITS ---
Date of service: 11/02/20 Time of Service: 11:28 History of Present Illness Narrative: 80-year-old woman who lives at the [facility]. She has multiple comorbidities including sleep apnea, right renal mass, chronic iron deficiency anemia, vascular dementia, CHF, vascular disease in the legs, depression, history of pulmonary embolus, diabetes, and COPD. She had not been feeling well for a few days and was transported to the ED are to better assist with diagnosis and treatment. In the ER she was found to have a hematocrit of 21. Also her chest x-ray showed congestive heart failure. She was given 2 units of blood and admitted to [facility]. There is concerned that Karina's wishes are ambiguous regarding whether to go forward with an EGD versus medical management I went in to see Karina. She was lying in bed. Her eyes were closed some of the time but she did speak. Initially when I asked her how she was doing she said fine she then replied that she wanted to go home (meaning the [facility]). I asked her about her stomach problem and whether or not she would want to have the test done (EGD) or take pills for it. Initially she said she wanted to find out what it was and then fix it. I did talk to her about her general health and how even if she wants to have an EGD the surgeons may not feel that she is well enough to have this. She then replied that I should just decide what is best for her but get it over with and move on. I spoke with her daughter, Fina, who is her DPOA. Fina states that in the past they wanted to do an EGD when she had a GI bleed. At that time the surgeons refused to do it because she was so ill. She feels that her mother is even more ill now. We talked about doing a EGD versus treating medically. She agrees with treating medically. She agrees with being off of the anticoagulant and on stomach medication. When I discussed this with Karina she again replied you and my daughter decide. I spoke to Dr. Choi who felt that medical management was probably in her best interest at this point. Consults Consult date: 11/02/20 Requesting physician: Dominique Choi Assessment and Plan Assessment and plan (1) GI bleed: Status: Chronic (2) Palliative care patient: Status: Acute Assessment and plan: Karina was feeling better than reported when she first came in. At this point she mostly wants to get home. This means she wants to get back to the [facility]. She has received her 2 units of blood and has increased her hematocrit by 9 points. This probably reflects some of her diuresis and CHF that she was experiencing. Her daughter, Fina, does not feel that she is well enough to go through an EGD and that she is better served by medical management of her GI bleed. Plan is to stop anticoagulation for her A. fib and not resume it and also do PPI treatment. I have spoken with Dr. Choi regarding this plan. I would recommend that she stay overnight, check an H&H in the morning and if stable return to the [facility] on medical management Review of Systems Narrative: She states she presently does not have any pain. She is feeling fairly well. She is tired and wants to get back to sleep [facility] Medical History (Updated 11/01/20 @ 19:35 by Fredo Weiss MD) Anemia CAD (coronary artery disease) Carotid stenosis s/p bilateral CEA Chronic diastolic CHF (congestive heart failure) Chronic iron deficiency anemia Chronic low back pain CKD (chronic kidney disease) COPD (chronic obstructive pulmonary disease) Depression with anxiety Diabetes mellitus 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 mellitus Diverticulitis DNI (do not intubate) DNR (do not resuscitate) Eye irritation Cellulitis per [employer] (Doxy & Eryth/Polymix/Steroid) Functional tremor GERD (gastroesophageal reflux disease) Gout Right foot, swelling/red/tender [ ] trial Rx History of pulmonary embolism Hyperlipidemia Hypertension Hypothyroidism Iron deficiency Moderate obstructive sleep apnea (01/21/20) with significant nocturnal hypoxemia 02/03/20 Sleep Clinic - CPAP ordered, f/u 04/2020 Obesity (BMI 30.0-34.9) DANYELLE (obstructive sleep apnea) Palliative care patient Paroxysmal atrial fibrillation Peripheral vascular disease POLST (Physician Orders for Life-Sustaining Treatment) done with Terra Kebede FOOD PHOTOGRAPHER on 11/21/19 DNR/DNI Renal mass Rheumatoid arthritis Stroke due to embolism TIA (transient ischemic attack) Vascular dementia Surgical History H/O cardiac catheterization [address] History of left-sided carotid endarterectomy History of right-sided carotid endarterectomy S/P arterial stent leg x2 S/P arteriovenous (AV) fistula creation [facility] in [place] Family History Sister Cancer Diabetes Brother Cancer Diabetes Mother , At age 61 Diabetes Father , in 60s, unknown cause No problems noted. Other Heart disease Social History Smoking/Tobacco Use Status: Former Tobacco Use Smoking risk assessment performed?: Yes Alcohol Intake: never Drug use: Never Substance use type: does not use Adopted: No Foster care: No Household members: children Housing: house Number of Children: 3 Do you need help understanding health information?: Always current occupation: Retired; attends [employer] during the day Sexually active: No Do you think of yourself as: straight/heterosexual Current gender identity: female Seatbelt use: always Do you feel safe at home: Yes Do you feel safe in your relationship?: Yes Additional [facility] Ex[facility] Narr[facility] Exam Narrative: Lying on her side, eyes closed during much of our time together. She has a loud systolic murmur, lungs had few scattered rales but definitely diminished breath sounds, bowel sounds were good and her abdomen was nontender. Laboratory Tests 11/01/20 11/02/20 17:53 09:30 Hgb 6.0 L* 9.3 L D Results Last Vital Signs Temp 98.4 F 11/02/20 10:00 Pulse 66 11/02/20 10:00 Resp 19 11/02/20 10:00 BP 157/64 H 11/02/20 10:00 Pulse Ox 95 11/02/20 10:27 Labs Result diagrams: 11/02/20 09:30 11/02/20 09:30 Labs: Laboratory Results - last 24 hr 11/01/20 11/01/20 11/01/20 06:45 17:13 17:53 WBC RBC Hgb Hct MCV MCH MCHC RDW Plt Count MPV Immature Gran % Neutrophils % Lymphocytes % Monocytes % Eosinophils % Basophils % Nucleated RBC % Absolute Neutrophils Absolute Lymphocytes Absolute Monocytes Absolute Eosinophils Absolute Basophils PT INR APTT VBG Lactate Sodium 138 Potassium 4.3 Chloride 102 Carbon Dioxide 31.5 Anion Gap 4.5 BUN 48 H Creatinine 2.3 H Estimated GFR/1.73 m2 20.51 Glucose 118 H Calcium 8.6 Magnesium 2.0 Total Bilirubin 0.3 AST 12 L ALT 17 Alkaline Phosphatase 83 Troponin I < 0.05 NT-Pro-B Natriuret Pep 1160 H Total Protein 7.4 Albumin 3.2 L Lipase TSH 5.23 H Free T4 0.73 L Urine Color Urine Clarity Urine pH Ur Specific Jasper Urine Protein Urine Ketones Urine Blood Urine Nitrite Urine Bilirubin Urine Urobilinogen Ur Leukocyte Esterase Urine RBC Urine WBC Ur Epithelial Cells Urine Crystals Urine Bacteria Urine Mucus Urine Other Ur Culture Indicated? Urine Glucose COVID-19 Source SARS-CoV-2 (PCR) Influenza Type A (PCR) Influenza Type B (PCR) RSV (PCR) Patient ABO/Rh Antibody Screen Crossmatch 11/01/20 11/01/20 11/01/20 17:53 17:53 17:53 WBC 12.52 H RBC 2.43 L Hgb 6.0 L* Hct 21.2 L MCV 87.2 MCH 24.7 L MCHC 28.3 L RDW 18.3 H Plt Count 275 MPV 10.1 Immature Gran % 1.4 Neutrophils % 76.0 Lymphocytes % 13.1 Monocytes % 5.9 Eosinophils % 3.0 Basophils % 0.6 Nucleated RBC % 0 Absolute Neutrophils 9.52 H Absolute Lymphocytes 1.64 Absolute Monocytes 0.74 Absolute Eosinophils 0.38 Absolute Basophils 0.08 PT 10.9 INR 1.1 APTT 31.5 H VBG Lactate Sodium Potassium Chloride Carbon Dioxide Anion Gap BUN Creatinine Estimated GFR/1.73 m2 Glucose Calcium Magnesium Total Bilirubin AST ALT Alkaline Phosphatase Troponin I NT-Pro-B Natriuret Pep Total Protein Albumin Lipase TSH Free T4 Urine Color Urine Clarity Urine pH Ur Specific Jasper Urine Protein Urine Ketones Urine Blood Urine Nitrite Urine Bilirubin Urine Urobilinogen Ur Leukocyte Esterase Urine RBC Urine WBC Ur Epithelial Cells Urine Crystals Urine Bacteria Urine Mucus Urine Other Ur Culture Indicated? Urine Glucose COVID-19 Source SARS-CoV-2 (PCR) Influenza Type A (PCR) Influenza Type B (PCR) RSV (PCR) Patient ABO/Rh A Positive Antibody Screen Negative Crossmatch See Detail 11/01/20 11/01/20 11/01/20 17:53 17:53 18:38 WBC RBC Hgb Hct MCV MCH MCHC RDW Plt Count MPV Immature Gran % Neutrophils % Lymphocytes % Monocytes % Eosinophils % Basophils % Nucleated RBC % Absolute Neutrophils Absolute Lymphocytes Absolute Monocytes Absolute Eosinophils Absolute Basophils PT INR APTT VBG Lactate 0.8 Sodium Potassium Chloride Carbon Dioxide Anion Gap BUN Creatinine Estimated GFR/1.73 m2 Glucose Calcium Magnesium Total Bilirubin AST ALT Alkaline Phosphatase Troponin I NT-Pro-B Natriuret Pep Total Protein Albumin Lipase 128 TSH Free T4 Urine Color Yellow Urine Clarity Sl cloudy Urine pH 5.5 Ur Specific Jasper 1.015 Urine Protein Negative Urine Ketones Negative Urine Blood Negative Urine Nitrite Negative Urine Bilirubin Negative Urine Urobilinogen 0.2 Ur Leukocyte Esterase Moderate H Urine RBC Negative Urine WBC 5-10 Ur Epithelial Cells Many Urine Crystals Few amorphous Urine Bacteria Few Urine Mucus Negative Urine Other Few transitional Ur Culture Indicated? No/sq. contamination Urine Glucose Negative COVID-19 Source SARS-CoV-2 (PCR) Influenza Type A (PCR) Influenza Type B (PCR) RSV (PCR) Patient ABO/Rh Antibody Screen Crossmatch 11/01/20 11/01/20 11/02/20 19:45 20:35 08:30 WBC RBC Hgb Cancelled Hct Cancelled MCV MCH MCHC RDW Plt Count MPV Immature Gran % Neutrophils % Lymphocytes % Monocytes % Eosinophils % Basophils % Nucleated RBC % Absolute Neutrophils Absolute Lymphocytes Absolute Monocytes Absolute Eosinophils Absolute Basophils PT INR APTT VBG Lactate Sodium Potassium Chloride Carbon Dioxide Anion Gap BUN Creatinine Estimated GFR/1.73 m2 Glucose Calcium Magnesium Total Bilirubin AST ALT Alkaline Phosphatase Troponin I < 0.05 NT-Pro-B Natriuret Pep Total Protein Albumin Lipase TSH Free T4 Urine Color Urine Clarity Urine pH Ur Specific Jasper Urine Protein Urine Ketones Urine Blood Urine Nitrite Urine Bilirubin Urine Urobilinogen Ur Leukocyte Esterase Urine RBC Urine WBC Ur Epithelial Cells Urine Crystals Urine Bacteria Urine Mucus Urine Other Ur Culture Indicated? Urine Glucose COVID-19 Source Nasal/nares SARS-CoV-2 (PCR) Negative Influenza Type A (PCR) Negative Influenza Type B (PCR) Negative RSV (PCR) Negative Patient ABO/Rh Antibody Screen Crossmatch 11/02/20 11/02/20 09:30 09:30 WBC 11.50 H RBC 3.55 L Hgb 9.3 L D Hct 30.9 L D MCV 87.0 MCH 26.2 L MCHC 30.1 L RDW 17.2 H Plt Count 276 MPV 9.8 Immature Gran % 1.4 Neutrophils % 77.3 Lymphocytes % 12.5 Monocytes % 5.1 Eosinophils % 3.0 Basophils % 0.7 Nucleated RBC % 0 Absolute Neutrophils 8.89 H Absolute Lymphocytes 1.44 Absolute Monocytes 0.59 Absolute Eosinophils 0.35 Absolute Basophils 0.08 PT INR APTT VBG Lactate Sodium 142 Potassium 4.2 Chloride 100 Carbon Dioxide 35.7 H Anion Gap 6.3 BUN 47 H Creatinine 2.0 H Estimated GFR/1.73 m2 24.10 Glucose 115 H Calcium 9.0 Magnesium 2.0 Total Bilirubin AST ALT Alkaline Phosphatase Troponin I < 0.05 NT-Pro-B Natriuret Pep Total Protein Albumin Lipase TSH Free T4 Urine Color Urine Clarity Urine pH Ur Specific Jasper Urine Protein Urine Ketones Urine Blood Urine Nitrite Urine Bilirubin Urine Urobilinogen Ur Leukocyte Esterase Urine RBC Urine WBC Ur Epithelial Cells Urine Crystals Urine Bacteria Urine Mucus Urine Other Ur Culture Indicated? Urine Glucose COVID-19 Source SARS-CoV-2 (PCR) Influenza Type A (PCR) Influenza Type B (PCR) RSV (PCR) Patient ABO/Rh Antibody Screen Crossmatch
--- NOTE | 2020-11-02 15:05 | INITIAL_ITS ---
- If Service Date Differs Date of service: 11/02/20 Time of Service: 15:05 Care Management Initial Assess REASON FOR HOSPITALIZATION:: GI Bleed PAST MEDICAL HISTORY/PAST SURGICAL HISTORY:: Medical History (Updated 11/01/20 @ 19:35 by Fredo Weiss MD). Anemia. CAD (coronary artery disease). Carotid stenosis. s/p bilateral CEA. Chronic diastolic CHF (congestive heart failure). Chronic iron deficiency anemia. Chronic low back pain. CKD (chronic kidney disease). COPD (chronic obstructive pulmonary disease). Depression with anxiety. Diabetes mellitus. 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 mellitus. Diverticulitis. DNI (do not intubate). DNR (do not resuscitate). Eye irritation. Cellulitis per [employer] (Doxy & Eryth/Polymix/Steroid). Functional tremor. GERD (gastroesophageal reflux disease). Gout. Right foot, swelling/red/tender [ ] trial Rx. History of pulmonary embolism. Hyperlipidemia. Hypertension. Hypothyroidism. Iron deficiency. Moderate obstructive sleep apnea (01/21/20). with significant noct urnal hypoxemia. 02/03/20 Sleep Clinic - CPAP ordered, f/u 04/2020. Obesity (BMI 30.0-34.9). DANYELLE (obstructive sleep apnea). Palliative care patient. Paroxysmal atrial fibrillation. Peripheral vascular disease. POLST (Physician Orders for Life-Sustaining Treatment). done with Terra Kebede NP on 11/21/19. DNR/DNI. Renal mass. Rheumatoid arthritis. Stroke due to embolism. TIA (transient ischemic attack). Vascular dementia. Surgical History . H/O cardiac catheterization. [address]. History of left-sided carotid endarterectomy. History of right-sided carotid endarterectomy. S/P arterial stent. leg x2. S/P arteriovenous (AV) fistula creation. [facility] in [place] PREVIOUS FUNCTIONAL STATUS/SOCIAL/FAMILY SUPPORTS:: Azucena currently resides at [facility] in [place], [place] She has a daughter Fina who is her DPOA. Fina lives locally and is very supportive of Azucena. azucena requires as sistance with care and activities which the staff at the [facility] provide. CURRENT FUNCTIONAL STATUS:: Azucena was lying in bed when CM met with her. She recognized CM from previous admissions but was not inclined to converse muc. She stated that she was very tired because she had not slept much last niight. This afternoon Dr. López met with Azucena to conduct a Palliative Care consult. Specifically, there was a need to determine if Azucena woukd want an EGD to evaluate her GI bleed. After discussion with Azucena and her daughter Fina (see Dr. López's note) it was decided that medical management and discontinuation of anticoagulants would be the most appropriate approach at this time. ADVANCE DIRECTIVES:: [facility] on file Has patient been provided with info about the portal/API?: Yes Did the patient sign up for the portal?: No CODE STATUS:: DNR/DNI INSURANCE COVERAGE / FINANCIAL ISSUES:: Medicare. Medicaid CURRENT HOME/COMMUNITY SERVICES/EQUIPMENT:: Azucena lives at the [facility]. she uses 2L of nasal O2 there. walks with a walker PRIMARY CARE PHYSICIAN:: Kristal Quiñonez and. the [facility] facility provider POTENTIAL DISCHARGE NEEDS:: return to the [facility] PATIENT/FAMILY EDUCATION NEEDS:: discharge plan, limitations, follow up plan, Ask Me Three TRANSPORTATION:: via RCT w/c van or ambulance coordinated by CM PLAN:: Azucena will be discharged back to the [facility] when medically stable. She will follow up with the facility provider abd plan of care and transport with ambulance or W/C van coordinated by CM. CM will continue to support Azucena and her family and assess for ongoing discharge needs.
--- NOTE | 2020-11-02 15:38 | SCONE_ITS ---
Date of service: 11/02/20 Time of Service: 15:39 Assessment and Plan Assessment and plan (1) GI bleed: Status: Chronic (2) GERD (gastroesophageal reflux disease): Status: Chronic Qualifiers: Esophagitis presence: esophagitis presence not specified Qualified Code(s): K21.9 - Gastro-esophageal reflux disease without esophagitis (3) Iron deficiency: Status: Chronic Assessment and plan: Dr. Powell's note appreciated. I would not keep her on blood thinners, espicailly givern her hisotry of anemia/mult gi bleeds). Also no ASA/NSAID's. med rec: PPI in am /carafate slurry at bedtime F/u prn echo: preserved values. EF 69% (4) CKD (chronic kidney disease), stage IV: Status: Chronic (5) Anemia due to acute blood loss: Status: Acute (6) Moderate obstructive sleep apnea: Status: Chronic (7) Right renal mass: Status: Acute (8) Chronic iron deficiency anemia: Status: Acute History of Present Illness Narrative: -Dr. Powell's note appreciated. - I would not keep her on blood thinners, espicailly givern her hisotry of anemia/mult gi bleeds. Per HAS-BLED criteria- pt is a high risk for major bleeding adn should not be on continued anti-coagulation. -Also no ASA/NSAID's. -med recommendation: PPI in am /carafate slurry at bedtime -will re-eval at your request Consults Consult date: 11/02/20 [facility] Medical History (Updated 11/02/20 @ 18:46 by Dominique Choi MD) Anemia CAD (coronary artery disease) Carotid stenosis s/p bilateral CEA Chronic diastolic CHF (congestive heart failure) Chronic iron deficiency anemia Chronic low back pain CKD (chronic kidney disease) COPD (chronic obstructive pulmonary disease) Depression with anxiety Diabetes mellitus 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 mellitus Diverticulitis DNI (do not intubate) DNR (do not resuscitate) Eye irritation Cellulitis per [facility] (Doxy & Eryth/Polymix/Steroid) Functional tremor GERD (gastroesophageal reflux disease) Gout Right foot, swelling/red/tender [ ] trial Rx History of pulmonary embolism Hyperlipidemia Hypertension Hypothyroidism Iron deficiency Moderate obstructive sleep apnea (01/21/20) with significant nocturnal hypoxemia 02/03/20 [facility] - CPAP ordered, f/u 04/2020 Obesity (BMI 30.0-34.9) DANYELLE (obstructive sleep apnea) Palliative care patient Paroxysmal atrial fibrillation Peripheral vascular disease POLST (Physician Orders for Life-Sustaining Treatment) done with [employer] on 11/21/19 DNR/DNI Renal mass Rheumatoid arthritis Stroke due to embolism TIA (transient ischemic attack) Vascular dementia Surgical History H/O cardiac catheterization [address] History of left-sided carotid endarterectomy History of right-sided carotid endarterectomy S/P arterial stent leg x2 S/P arteriovenous (AV) fistula creation [facility] in [place] Family History Sister Cancer Diabetes Brother Cancer Diabetes Mother , At age 61 Diabetes Father , in 60s, unknown cause No problems noted. Other Heart disease Social History Smoking/Tobacco Use Status: Former Tobacco Use Smoking risk assessment performed?: Yes Alcohol Intake: never Drug use: Never Substance use type: does not use Adopted: No Foster care: No Household members: children Housing: house Number of Children: 3 Do you need help understanding health information?: Always current occupation: Retired; attends [employer] during the day Sexually active: No Do you think of yourself as: straight/heterosexual Current gender identity: female Seatbelt use: always Do you feel safe at home: Yes Do you feel safe in your relationship?: Yes Additional Social history: residing at [facility] Results Last Vital Signs Temp 36.9 C 11/02/20 15:22 Pulse 60 11/02/20 15:22 Resp 18 11/02/20 15:22 BP 132/69 11/02/20 15:22 Pulse Ox 93 11/02/20 15:22 Labs Result diagrams: 11/03/20 14:04 11/03/20 06:35 Labs: Laboratory Results - last 24 hr 11/01/20 11/01/20 11/01/20 06:45 17:13 17:53 WBC RBC Hgb Hct MCV MCH MCHC RDW Plt Count MPV Immature Gran % Neutrophils % Lymphocytes % Monocytes % Eosinophils % Basophils % Nucleated RBC % Absolute Neutrophils Absolute Lymphocytes Absolute Monocytes Absolute Eosinophils Absolute Basophils PT INR APTT VBG Lactate Sodium 138 Potassium 4.3 Chloride 102 Carbon Dioxide 31.5 Anion Gap 4.5 BUN 48 H Creatinine 2.3 H Estimated GFR/1.73 m2 20.51 Glucose 118 H Calcium 8.6 Magnesium 2.0 Total Bilirubin 0.3 AST 12 L ALT 17 Alkaline Phosphatase 83 Troponin I < 0.05 NT-Pro-B Natriuret Pep 1160 H Total Protein 7.4 Albumin 3.2 L Lipase TSH 5.23 H Free T4 0.73 L Urine Color Urine Clarity Urine pH Ur Specific [place] Urine Protein Urine Ketones Urine Blood Urine Nitrite Urine Bilirubin Urine Urobilinogen Ur Leukocyte Esterase Urine RBC Urine WBC Ur Epithelial Cells Urine Crystals Urine Bacteria Urine Mucus Urine Other Ur Culture Indicated? Urine Glucose COVID-19 Source SARS-CoV-2 (PCR) Influenza Type A (PCR) Influenza Type B (PCR) RSV (PCR) Patient ABO/Rh Antibody Screen Crossmatch 11/01/20 11/01/20 11/01/20 17:53 17:53 17:53 WBC 12.52 H RBC 2.43 L Hgb 6.0 L* Hct 21.2 L MCV 87.2 MCH 24.7 L MCHC 28.3 L RDW 18.3 H Plt Count 275 MPV 10.1 Immature Gran % 1.4 Neutrophils % 76.0 Lymphocytes % 13.1 Monocytes % 5.9 Eosinophils % 3.0 Basophils % 0.6 Nucleated RBC % 0 Absolute Neutrophils 9.52 H Absolute Lymphocytes 1.64 Absolute Monocytes 0.74 Absolute Eosinophils 0.38 Absolute Basophils 0.08 PT 10.9 INR 1.1 APTT 31.5 H VBG Lactate Sodium Potassium Chloride Carbon Dioxide Anion Gap BUN Creatinine Estimated GFR/1.73 m2 Glucose Calcium Magnesium Total Bilirubin AST ALT Alkaline Phosphatase Troponin I NT-Pro-B Natriuret Pep Total Protein Albumin Lipase TSH Free T4 Urine Color Urine Clarity Urine pH Ur Specific [place] Urine Protein Urine Ketones Urine Blood Urine Nitrite Urine Bilirubin Urine Urobilinogen Ur Leukocyte Esterase Urine RBC Urine WBC Ur Epithelial Cells Urine Crystals Urine Bacteria Urine Mucus Urine Other Ur Culture Indicated? Urine Glucose COVID-19 Source SARS-CoV-2 (PCR) Influenza Type A (PCR) Influenza Type B (PCR) RSV (PCR) Patient ABO/Rh A Positive Antibody Screen Negative Crossmatch See Detail 11/01/20 11/01/20 11/01/20 17:53 17:53 18:38 WBC RBC Hgb Hct MCV MCH MCHC RDW Plt Count MPV Immature Gran % Neutrophils % Lymphocytes % Monocytes % Eosinophils % Basophils % Nucleated RBC % Absolute Neutrophils Absolute Lymphocytes Absolute Monocytes Absolute Eosinophils Absolute Basophils PT INR APTT VBG Lactate 0.8 Sodium Potassium Chloride Carbon Dioxide Anion Gap BUN Creatinine Estimated GFR/1.73 m2 Glucose Calcium Magnesium Total Bilirubin AST ALT Alkaline Phosphatase Troponin I NT-Pro-B Natriuret Pep Total Protein Albumin Lipase 128 TSH Free T4 Urine Color Yellow Urine Clarity Sl cloudy Urine pH 5.5 Ur Specific [place] 1.015 Urine Protein Negative Urine Ketones Negative Urine Blood Negative Urine Nitrite Negative Urine Bilirubin Negative Urine Urobilinogen 0.2 Ur Leukocyte Esterase Moderate H Urine RBC Negative Urine WBC 5-10 Ur Epithelial Cells Many Urine Crystals Few amorphous Urine Bacteria Few Urine Mucus Negative Urine Other Few transitional Ur Culture Indicated? No/sq. contamination Urine Glucose Negative COVID-19 Source SARS-CoV-2 (PCR) Influenza Type A (PCR) Influenza Type B (PCR) RSV (PCR) Patient ABO/Rh Antibody Screen Crossmatch 11/01/20 11/01/20 11/02/20 19:45 20:35 08:30 WBC RBC Hgb Cancelled Hct Cancelled MCV MCH MCHC RDW Plt Count MPV Immature Gran % Neutrophils % Lymphocytes % Monocytes % Eosinophils % Basophils % Nucleated RBC % Absolute Neutrophils Absolute Lymphocytes Absolute Monocytes Absolute Eosinophils Absolute Basophils PT INR APTT VBG Lactate Sodium Potassium Chloride Carbon Dioxide Anion Gap BUN Creatinine Estimated GFR/1.73 m2 Glucose Calcium Magnesium Total Bilirubin AST ALT Alkaline Phosphatase Troponin I < 0.05 NT-Pro-B Natriuret Pep Total Protein Albumin Lipase TSH Free T4 Urine Color Urine Clarity Urine pH Ur Specific [place] Urine Protein Urine Ketones Urine Blood Urine Nitrite Urine Bilirubin Urine Urobilinogen Ur Leukocyte Esterase Urine RBC Urine WBC Ur Epithelial Cells Urine Crystals Urine Bacteria Urine Mucus Urine Other Ur Culture Indicated? Urine Glucose COVID-19 Source Nasal/nares SARS-CoV-2 (PCR) Negative Influenza Type A (PCR) Negative Influenza Type B (PCR) Negative RSV (PCR) Negative Patient ABO/Rh Antibody Screen Crossmatch 11/02/20 11/02/20 09:30 09:30 WBC 11.50 H RBC 3.55 L Hgb 9.3 L D Hct 30.9 L D MCV 87.0 MCH 26.2 L MCHC 30.1 L RDW 17.2 H Plt Count 276 MPV 9.8 Immature Gran % 1.4 Neutrophils % 77.3 Lymphocytes % 12.5 Monocytes % 5.1 Eosinophils % 3.0 Basophils % 0.7 Nucleated RBC % 0 Absolute Neutrophils 8.89 H Absolute Lymphocytes 1.44 Absolute Monocytes 0.59 Absolute Eosinophils 0.35 Absolute Basophils 0.08 PT INR APTT VBG Lactate Sodium 142 Potassium 4.2 Chloride 100 Carbon Dioxide 35.7 H Anion Gap 6.3 BUN 47 H Creatinine 2.0 H Estimated GFR/1.73 m2 24.10 Glucose 115 H Calcium 9.0 Magnesium 2.0 Total Bilirubin AST ALT Alkaline Phosphatase Troponin I < 0.05 NT-Pro-B Natriuret Pep Total Protein Albumin Lipase TSH Free T4 Urine Color Urine Clarity Urine pH Ur Specific [place] Urine Protein Urine Ketones Urine Blood Urine Nitrite Urine Bilirubin Urine Urobilinogen Ur Leukocyte Esterase Urine RBC Urine WBC Ur Epithelial Cells Urine Crystals Urine Bacteria Urine Mucus Urine Other Ur Culture Indicated? Urine Glucose COVID-19 Source SARS-CoV-2 (PCR) Influenza Type A (PCR) Influenza Type B (PCR) RSV (PCR) Patient ABO/Rh Antibody Screen Crossmatch
[2020-11-02] MEDS: IRON SUCROSE COMPLEX 300 MG in Normal Saline 250 ML 167 MG IVPB (16:34)
[2020-11-02 18:24] LABS: HCT 30.2 % (36.0-46.0)
--- NOTE | 2020-11-02 18:24 | RESPIRATORY ---
Care management called patient's daughter to see if CPAP machine was at home instead of at [facility]. On a previous visit, patient had brought in her personal CPAP machine to use while in hospital in May 2020. Daughter informed care management, [facility] took CPAP machine back because of non-compliance. Patient now uses 2L NC at night instead of a machine at the [facility].
--- NOTE | 2020-11-02 18:33 | PGE_ITS ---
Date of Service Date of service: 11/02/20 Time of Service: 16:45 Assessment and Plan Assessment and plan (1) Upper GI bleeding: Status: Acute Assessment and plan: Continue IV protonix and sucralfate. Keep NPO for today. As patient is not interested in having an intervention, will treat medically. (2) Anemia due to acute blood loss: Status: Acute Assessment and plan: S/p 2 units pRBCs and is now receiving venofer. (3) Acute on chronic diastolic (congestive) heart failure: Status: Acute Assessment and plan: Continue IV lasix, monitoring I/O's and daily we ights. has a avila. (4) Paroxysmal atrial fibrillation: Status: Chronic Assessment and plan: We will not resume anticoagulation on discharge. (5) Moderate obstructive sleep apnea: Status: Chronic Assessment and plan: Patient was not on CPAP/BiPAP at the [facility], but she does qualify for it. She certainly appears to need it now. Tolerating it so far. Will monitor. (6) CKD (chronic kidney disease), stage IV: Status: Chronic Assessment and plan: Near baseline. MOnitor Cr while diuresing. (7) Discharge planning issues: Status: Acute Assessment and plan: DNR/DNI Seen by palliative care. Consult PT. Subjective Subjective Interval history since last seen: Ms Bean has had two melanotic stools today. She denies abdominal pain, dizziness, chest pain, shortness of breath, nausea. She is permitting initiation of BiPAP now, but had refused it three times today. In palliative care discussion, the patient and her daughter were not interested in her having an EGD and agreed to medical therapy only. She is s/p 2 units pRBCs overnight. Exam Narrative Exam Narrative: General: Elderly female who looks more pale than her baseline, somnolent, arousable, appears to have labored breathing when asleep - at the time, on nasal canula HEENT: EOMI, dry MM Heart: RRR, no m/r/g Lungs: rales at B bases, no wheezing Abdomen: soft, nontender, nondistended Extremities: +1 edema BLEs Objective Last Vital Signs Temp 36.9 C 11/02/20 15:22 Pulse 61 11/02/20 17:28 Resp 13 11/02/20 17:28 BP 132/69 11/02/20 15:22 Pulse Ox 95 11/02/20 17:28 Laboratory Results - last 24 hr 11/01/20 11/01/20 11/01/20 06:45 17:13 17:53 WBC RBC Hgb Hct MCV MCH MCHC RDW Plt Count MPV Immature Gran % Neutrophils % Lymphocytes % Monocytes % Eosinophils % Basophils % Nucleated RBC % Absolute Neutrophils Absolute Lymphocytes Absolute Monocytes Absolute Eosinophils Absolute Basophils Sodium 138 Potassium 4.3 Chloride 102 Carbon Dioxide 31.5 Anion Gap 4.5 BUN 48 H Creatinine 2.3 H Estimated GFR/1.73 m2 20.51 Glucose 118 H Calcium 8.6 Magnesium 2.0 Total Bilirubin 0.3 AST 12 L ALT 17 Alkaline Phosphatase 83 Troponin I < 0.05 NT-Pro-B Natriuret Pep 1160 H Total Protein 7.4 Albumin 3.2 L Lipase TSH 5.23 H Free T4 0.73 L Urine Color Urine Clarity Urine pH Ur Specific [place] Urine Protein Urine Ketones Urine Blood Urine Nitrite Urine Bilirubin Urine Urobilinogen Ur Leukocyte Esterase Urine RBC Urine WBC Ur Epithelial Cells Urine Crystals Urine Bacteria Urine Mucus Urine Other Ur Culture Indicated? Urine Glucose COVID-19 Source SARS-CoV-2 (PCR) Influenza Type A (PCR) Influenza Type B (PCR) RSV (PCR) Patient ABO/Rh Antibody Screen Crossmatch 11/01/20 11/01/20 11/01/20 17:53 17:53 18:38 WBC RBC Hgb Hct MCV MCH MCHC RDW Plt Count MPV Immature Gran % Neutrophils % Lymphocytes % Monocytes % Eosinophils % Basophils % Nucleated RBC % Absolute Neutrophils Absolute Lymphocytes Absolute Monocytes Absolute Eosinophils Absolute Basophils Sodium Potassium Chloride Carbon Dioxide Anion Gap BUN Creatinine Estimated GFR/1.73 m2 Glucose Calcium Magnesium Total Bilirubin AST ALT Alkaline Phosphatase Troponin I NT-Pro-B Natriuret Pep Total Protein Albumin Lipase 128 TSH Free T4 Urine Color Yellow Urine Clarity Sl cloudy Urine pH 5.5 Ur Specific [place] 1.015 Urine Protein Negative Urine Ketones Negative Urine Blood Negative Urine Nitrite Negative Urine Bilirubin Negative Urine Urobilinogen 0.2 Ur Leukocyte Esterase Moderate H Urine RBC Negative Urine WBC 5-10 Ur Epithelial Cells Many Urine Crystals Few amorphous Urine Bacteria Few Urine Mucus Negative Urine Other Few transitional Ur Culture Indicated? No/sq. contamination Urine Glucose Negative COVID-19 Source SARS-CoV-2 (PCR) Influenza Type A (PCR) Influenza Type B (PCR) RSV (PCR) Patient ABO/Rh A Positive Antibody Screen Negative Crossmatch See Detail 11/01/20 11/01/20 11/02/20 19:45 20:35 08:30 WBC RBC Hgb Cancelled Hct Cancelled MCV MCH MCHC RDW Plt Count MPV Immature Gran % Neutrophils % Lymphocytes % Monocytes % Eosinophils % Basophils % Nucleated RBC % Absolute Neutrophils Absolute Lymphocytes Absolute Monocytes Absolute Eosinophils Absolute Basophils Sodium Potassium Chloride Carbon Dioxide Anion Gap BUN Creatinine Estimated GFR/1.73 m2 Glucose Calcium Magnesium Total Bilirubin AST ALT Alkaline Phosphatase Troponin I < 0.05 NT-Pro-B Natriuret Pep Total Protein Albumin Lipase TSH Free T4 Urine Color Urine Clarity Urine pH Ur Specific [place] Urine Protein Urine Ketones Urine Blood Urine Nitrite Urine Bilirubin Urine Urobilinogen Ur Leukocyte Esterase Urine RBC Urine WBC Ur Epithelial Cells Urine Crystals Urine Bacteria Urine Mucus Urine Other Ur Culture Indicated? Urine Glucose COVID-19 Source Nasal/nares SARS-CoV-2 (PCR) Negative Influenza Type A (PCR) Negative Influenza Type B (PCR) Negative RSV (PCR) Negative Patient ABO/Rh Antibody Screen Crossmatch 11/02/20 11/02/20 11/02/20 09:30 09:30 18:10 WBC 11.50 H RBC 3.55 L Hgb 9.3 L D 9.0 L Hct 30.9 L D 30.2 L MCV 87.0 MCH 26.2 L MCHC 30.1 L RDW 17.2 H Plt Count 276 MPV 9.8 Immature Gran % 1.4 Neutrophils % 77.3 Lymphocytes % 12.5 Monocytes % 5.1 Eosinophils % 3.0 Basophils % 0.7 Nucleated RBC % 0 Absolute Neutrophils 8.89 H Absolute Lymphocytes 1.44 Absolute Monocytes 0.59 Absolute Eosinophils 0.35 Absolute Basophils 0.08 Sodium 142 Potassium 4.2 Chloride 100 Carbon Dioxide 35.7 H Anion Gap 6.3 BUN 47 H Creatinine 2.0 H Estimated GFR/1.73 m2 24.10 Glucose 115 H Calcium 9.0 Magnesium 2.0 Total Bilirubin AST ALT Alkaline Phosphatase Troponin I < 0.05 NT-Pro-B Natriuret Pep Total Protein Albumin Lipase TSH Free T4 Urine Color Urine Clarity Urine pH Ur Specific [place] Urine Protein Urine Ketones Urine Blood Urine Nitrite Urine Bilirubin Urine Urobilinogen Ur Leukocyte Esterase Urine RBC Urine WBC Ur Epithelial Cells Urine Crystals Urine Bacteria Urine Mucus Urine Other Ur Culture Indicated? Urine Glucose COVID-19 Source SARS-CoV-2 (PCR) Influenza Type A (PCR) Influenza Type B (PCR) RSV (PCR) Patient ABO/Rh Antibody Screen Crossmatch
[2020-11-02] MEDS: traZODone 50 MG TAB PO (21:06)
[2020-11-02] MEDS: Melatonin 3 MG TAB 9 MG PO (21:07)
[2020-11-03] MEDS: Sucralfate 1 GM TAB PO ×4 (04:05→21:47)
[2020-11-03] MEDS: Levothyroxine 25 MCG TAB PO (05:43)
[2020-11-03 05:52] VITALS: BP 152/72; PULSE 69; RESP 18; TEMP 36.7; O2SAT 92
[2020-11-03 07:03] LABS: Abs Immature Grans 0.12 10^3/uL (0.0-0.06); Absolute Basophil Count 0.06 10^3/uL (0.0-0.2); Absolute Lymphocyte Count 1.15 10^3/uL (1.2-3.4); Absolute Monocyte Count 0.56 10^3/uL (0.1-0.8); Absolute Neutrophil Count 7.13 10^3/uL (1.2-6.7); Basophils % 0.6; Eosinophils % 4.2; HCT 28.2 % (36.0-46.0); HGB 8.2 g/dL (11.2-15.7); Immature Grans % 1.3; Lymphocytes % 12.2; MCH 25.2 pg (27.0-33.0); MCHC 29.1 % (32.0-36.0); MCV 86.5 fL (80-95); MPV 9.9 fL (8.0-11.0); Monocytes % 5.9; Neutrophils % 75.8; Nucleated RBC 0 %; Platelet Count 260 10^3/uL (130-400); RBC 3.26 10^6/uL (3.93-5.22); RDW 17.4 % (11.7-14.6); RDW-SD 54.4 fL; WBC 9.42 10^3/uL (4.4-10.8)
[2020-11-03 07:18] LABS: Anion Gap 4.4 mmol/L (3-11); BUN 43 mg/dL (7-18); CO2 36.6 mmol/L (21.0-32.0); Calcium 9.4 mg/dL (8.5-10.1); Chloride 105 mmol/L (98-107); Glucose 80 mg/dL (74-106); Potassium 3.9 mmol/L (3.5-5.1); Sodium 146 mmol/L (136-145)
[2020-11-03 07:20] VITALS: BP 149/66; PULSE 66; RESP 18; TEMP 36.8; O2SAT 97
[2020-11-03 07:38] LABS: Procalcitonin < 0.1 ng/mL
[2020-11-03] MEDS: Normal Saline Flush 10 ML SYR IVP ×3 (07:55→21:47)
[2020-11-03] MEDS: Furosemide 40 MG/4 ML VIAL IVP ×2 (07:55→15:45)
[2020-11-03 08:05] VITALS: RESP 11
[2020-11-03] MEDS: Budesonide/Formoterol 160/4.5 6 GM 60 PUFF INH IH ×2 (08:16→21:46)
[2020-11-03] MEDS: Metoprolol CR 25 MG TABCR PO (09:22)
[2020-11-03] MEDS: Docusate Sodium 100 MG CAP PO (09:22)
[2020-11-03] MEDS: PARoxetine 20 MG TAB PO (09:22)
[2020-11-03] MEDS: Pantoprazole 40 MG VIAL 80 MG IVP (09:22)
[2020-11-03] MEDS: Allopurinol 100 MG TAB PO (09:22)
[2020-11-03] MEDS: Gabapentin 100 MG CAP 200 MG PO ×2 (09:23→21:46)
[2020-11-03] MEDS: busPIRone 15 MG TAB 7.5 MG PO (09:23)
[2020-11-03] MEDS: Isosorbide Dinitrate 10 MG TAB 30 MG PO ×2 (09:23→21:47)
[2020-11-03] MEDS: amLODIPine 2.5 MG TAB PO (09:23)
[2020-11-03] MEDS: hydrALAZINE 25 MG TAB PO (09:23)
[2020-11-03] MEDS: Insulin Aspart 300 UNITS/3 ML PEN SC ×3 (11:19→21:51)
[2020-11-03] MEDS: Acetaminophen 325 MG TAB 650 MG PO ×2 (12:10→23:43)
--- NOTE | 2020-11-03 13:36 | IN_ITS ---
Date of service: 11/03/20 Time of Service: 13:36 PT Notes Visit Reasons: GI BLEED Physical Therapy Inpatient Initial Evaluation Date: 11/02/2020 Referring Doctor: Dominique Choi MD PT Orders: PT CONSULT: Limited ability Precautions: Fall. Standard. Activity as tolerated. Patient Profile/Admitting Diagnosis: Karina is a 80-year-old female with past medical history significant for chronic diastolic congestive heart failure, carotid artery disease, and history of stroke who presented to the ED today from a local SNF due to increasing fatigue. Patient is diagnosed with exacerbation of congestive heart failure, GI bleed, GERD, and iron deficiency anemia. PMHX: Medical History (Updated 11/01/20 @ 19:35 by Fredo Weiss MD) Anemia CAD (coronary artery disease) Carotid stenosis s/p bilateral CEA Chronic diastolic CHF (congestive heart failure) Chronic iron deficiency anemia Chronic low back pain CKD (chronic kidney disease) COPD (chronic obstructive pulmonary disease) Depression with anxiety Diabetes mellitus 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 mellitus Diverticulitis DNI (do not intubate) DNR (do not resuscitate) Eye irritation Cellulitis per [facility] (Doxy & Eryth/Polymix/Steroid) Functional tremor GERD (gastroesophageal reflux disease) Gout Right foot, swelling/red/tender [ ] trial Rx History of pulmonary embolism Hyperlipidemia Iron deficiency Moderate obstructive sleep apnea (01/21/20) with significant nocturnal hypoxemia 02/03/20 Sleep Clinic - CPAP ordered, f/u 04/2020 Obesity (BMI 30.0-34.9) DANYELLE (obstructive sleep apnea) Palliative care patient Paroxysmal atrial fibrillation Peripheral vascular disease POLST (Physician Orders for Life-Sustaining Treatment) done with Terra Kebede [employer] on 11/21/19 DNR/DNI Renal mass Rheumatoid arthritis Stroke due to embolism TIA (transient ischemic attack) Vascular dementia Surgical History H/O cardiac catheterization [address] History of left-sided carotid endarterectomy History of right-sided carotid endarterectomy S/P arterial stent leg x2 S/P arteriovenous (AV) fistula creation [facility] in [place] Social History/Home Situation: Karina currently lives at the [facility]. Equipment Owned/DME: Front-wheeled walker Subjective: Karina believes that she has been at this hospital ever since, does not think that she has been at the [facility]. Agreeable to a PT consult stating that she likes to walk and do exercises. Objective: General Observation: Seated on chair. Wills catheter in place. Mental Status: Alert and oriented as to person. Believes that she lived in this hospital for quite a while. Able to follow single step commands. Oxygen supplementation at 2 L/min via NC. Pain: None reported ROM: Right Upper Extremity: Shoulder Flexion WFL. Shoulder abduction WFL. Elbow flexion WFL. Wrist flexion WFL. Opening and closing of hand WFL. Left Upper Extremity: Shoulder Flexion WFL. Shoulder abduction WFL. Elbow flexion WFL. Wrist flexion WFL. Opening and closing of hand WFL. Right Lower Extremity: Hip flexion WFL. Hip abduction WFL. Knee flexion WFL. Ankle dorsiflexion WFL. Ankle plantarflexion WFL. Left Lower Extremity: Hip flexion WFL. Hip abduction WFL. Knee flexion WFL. Ankle dorsiflexion WFL. Ankle plantarflexion WFL. Strength: Right Upper Extremity: Shoulder flexors 4-/5. Shoulder abductors 4-/5. Elbow f lexors 4-/5. Elbow extensors 4-/5. Crane Follower strong. Left Upper Extremity: Shoulder flexors 4-/5. Shoulder abductors 4-/5. Elbow flexors 4-/5. Elbow extensors 4-/5. Crane Follower strong. Right Lower Extremity: Hip flexors 3+/5. Hip abductors 3+/5. Knee flexors 3+/5. Knee extensors 3+/5. Ankle dorsiflexors 3+/5. Ankle plantarflexors 4-/5. Left Lower Extremity: Hip flexors 3+/5. Hip abductors 3+/5. Knee flexors 3+/5. Knee extensors 3+/5. Ankle dorsiflexors 3+/5. Ankle plantarflexors 4-/5. Sensation: Intact as to pain and pressure on bilateral lower extremities. Bed Mobility/Transfers: Sit to stand minimal assist. Demonstrated a shaking episode that lasted about 10 seconds but was able to tolerate ambulation activity. Stand to sit contact-guard assist Chair to bed contact-guard assist Gait: Tolerated 250 feet of level surface ambulation using front wheeled walker with full weight bearing using step through gait pattern with mild path deviation seen and decreased minna. Needed 1 seated rest due to fatigue. Reported minimal aching in the right LE that subsided with rest. THERA EX: Karina tolerated seated level exercises consisting of ankle pumps x10, LAQs x10, hip flexion x10, and hip abduction x 10 incorporating B UE exercises with chest expansion exercises to minimize fatigue. Balance: Static Sitting: Normal Dynamic Sitting: Normal Static Standing: Fair Dynamic Standing: Fair Special Tests: Mobility Limitations Standardized Measure [facility] 6 clicks Basic Mobility Inpatient Short Form: Raw Score: 18 CMS Score: 47% deficit 4-stage balance test: Patient only tolerated feet together for 10 seconds but was unable to perform semi-tandem, full tandem, and 1 legged stance indicating high risk for falls. Informed Consent/Education: Patient instructed in purpose of PT consult and plan of care. Assessment: Karina demonstrates functional mobility decline requiring use of a front wheeled walker and assistance of another for all mobility ADL performance, generalized weakness, decreased activity tolerance, and difficulty with walking. Patient presents with clinical signs and symptoms consistent with current/admitting diagnoses that have resulted to mobility limitations, gait instability, generalized weakness, and impairment of motor control as demonstrated by the following impairment level findings: 1. Decreased strength to B LE major muscle groups 2. Impaired standing balance 3. Impaired activity tolerance Impairments are contributing to the following functional limitations: 1. Increased dependence with transfers 2. Inability to safely ambulate without assistive device and physical assistance 3. Increase completion time for mobility ADL performance 4. Increased fall risk 5. Inability to negotiate steps alone safely Patient is assessed as a 14272 moderate complexity based on the following: History: 80-year-old female with impairment level findings, functional limitations, and past medical history as indicated above Examination: Demonstrable impairment in strength, balance, and mobility level with underlying impairments and functional limitations as documented above Presentation: Evolving Decision Makin moderate complexity Goals: Goals X1 week 1. Supine-Sit independent 2. Sit-Supine independent 3. Sit-Stand independent 4. Stand-Sit independent 5. Bed-Chair independent 6. Chair-Bed independent 7. Independent gait on level surface with use of least restrictive device for at least 300 feet without report of pain nor dyspnea 8. Independent stair negotiation while holding onto bilateral rails for at least 10 steps without report of pain nor dyspnea 9. Independent with home exercise program 10. Good static and dynamic standing balance/tolerance Plan of Care/Treatment Plan: 1-2x/day, 7 days/week x 1 week. Plan of care has been reviewed with the AERODYNAMICS ENGINEER providing the service under Physical Therapy direction. Initiate Physical Therapy intervention for strengthening, bed mobility, transfers, gait, stairs, balance training, use of assistive device. DISCHARGE RECOMMENDATIONS: Return to SNF when medically cleared by hospitalist. Continue skilled physical therapy services for functional mobility progression at SNF. TREATMENT CODE/TIME: 70350 x 20 minutes, 42197 x 14 minutes beginning at 13:36 PM. Thank you for the opportunity to participate in the care of this patient. Theresa Pro PT, DPT, CLT [facility] [place], [place]
--- NOTE | 2020-11-03 13:38 | W.PM.PROGNOT ---
Date of Service Date of service: 11/03/20 Time of Service: 13:38 Assessment and Plan Assessment and plan (1) Upper GI bleeding: Status: Acute Assessment and plan: No clinical bleeding since yesterday morning. Patient is tolerating clear liquids. Advance diet to soft low acid bland. Change to PO protonix; continue carafate. patient is not interested in intervention. Recheck H/H. The patient will not be restarted on anticoagulation on discharge. (2) Anemia due to acute blood loss: Status: Acute Assessment and plan: S/p 2 units pRBCs and venofer. Check H/H at 2 pm. (3) Acute on chronic diastolic (congestive) heart failure: Status: Acute Assessment and plan: Continue IV lasix, monitoring I/O's and daily weights. has a avila. (4) Paroxysmal atrial fibrillation: Status: Chronic Assessment and plan: We will not resume anticoagulation on discharge. (5) Moderate obstructive sleep apnea: Status: Chronic Assessment and plan: Patient was not on CPAP/BiPAP at the [facility], but she does qualify for it. She tolerated it very well last night. Respiratory is checking on the status of the CPAP/BiPAP with the shelter. (6) CKD (chronic kidney disease), stage IV: Status: Chronic Assessment and plan: At baseline. Monitor Cr while diuresing. (7) Discharge planning issues: Status: Acute Assessment and plan: DNR/DNI Seen by palliative care. If H/H stable/tolerates diet/respiratory status stable, plan for discharge to SNF tomorrow vs in 48 hrs. Subjective Subjective Interval history since last seen: Ms Bean complains of L hand pain as well as pain all over. She requests a tylenol. She slept with BiPAP on; on 2 L of O2 now. Denies dizziness, chest pain, feels less short of breath, denies nausea/vomiting/abdominal pain. Requests that her diet be advanced. I want real food. Exam Narrative Exam Narrative: General: Elderly female, very alert, sitting up in a chair after lunch, no dyspnea/tachypnea/increased work of breathing, A&Ox3, but does not remember who the president is. HEENT: EOMI, MMM Heart: RRR, no m/r/g Lungs: very diminished/dull breath sounds B Abdomen: soft, nontender, nondistended Extremities: +1 edema BLEs; LUE AV fistula with bruit/thrill; no trauma to L hand Objective Last Vital Signs Temp 36.8 C 11/03/20 07:20 Pulse 66 11/03/20 07:20 Resp 18 11/03/20 07:20 BP 149/66 H 11/03/20 07:20 Pulse Ox 97 11/03/20 07:20 Laboratory Results - last 24 hr 11/02/20 11/03/20 11/03/20 18:10 06:35 06:35 WBC 9.42 RBC 3.26 L Hgb 9.0 L 8.2 L Hct 30.2 L 28.2 L MCV 86.5 MCH 25.2 L MCHC 29.1 L RDW 17.4 H Plt Count 260 MPV 9.9 Immature Gran % 1.3 Neutrophils % 75.8 Lymphocytes % 12.2 Monocytes % 5.9 Eosinophils % 4.2 Basophils % 0.6 Nucleated RBC % 0 Absolute Neutrophils 7.13 H Absolute Lymphocytes 1.15 L Absolute Monocytes 0.56 Absolute Eosinophils 0.40 Absolute Basophils 0.06 Sodium Potassium Chloride Carbon Dioxide Anion Gap BUN Creatinine Estimated GFR/1.73 m2 Glucose Calcium Magnesium 2.0 Procalcitonin 11/03/20 11/03/20 06:35 06:35 WBC RBC Hgb Hct MCV MCH MCHC RDW Plt Count MPV Immature Gran % Neutrophils % Lymphocytes % Monocytes % Eosinophils % Basophils % Nucleated RBC % Absolute Neutrophils Absolute Lymphocytes Absolute Monocytes Absolute Eosinophils Absolute Basophils Sodium 146 H Potassium 3.9 Chloride 105 Carbon Dioxide 36.6 H Anion Gap 4.4 BUN 43 H Creatinine 2.0 H Estimated GFR/1.73 m2 24.10 Glucose 80 Calcium 9.4 Magnesium Procalcitonin < 0.1
[2020-11-03 14:08] LABS: HCT 29.9 % (36.0-46.0); HGB 8.8 g/dL (11.2-15.7)
[2020-11-03 15:29] VITALS: BP 148/70; PULSE 56; RESP 18; TEMP 36; O2SAT 97
--- NOTE | 2020-11-03 16:33 | CHAPLAIN ---
Karina was sitting up coloring when I visited. She was pleasant and engaged in a conversation with me, mostly about coloring and the snow she was watching out the window. She couldn't remember where she lived when I asked if she lives in [facility] but she told me she has a daughter who helps her out. I will continue to visit Karina.
--- NOTE | 2020-11-03 16:41 | CMPROGNOTE_ITS ---
- If Service Date Differs Date of service: 11/03/20 Time of Service: 16:41 Care Management Progress Note S/O: Karina was sitting up in her chair when CM met with her. She reported that she is doing ok, but is hoping to have some food today. She was NPO yesterday, and her diet was advanced to clear liquids. She stated that for fun she likes to color, so CM brought her a coloring book and colored pencils, which she was happy about. CM will continue to follow. A: Karina is a 80 year old female admitted to [facility] on 11/01/20 with GI bleed. P: Karina will be discharged back to the [facility] when medically stable. She will follow up with the facility provider abd plan of care and transport with ambul ance or W/C van coordinated by DEISY. CM will continue to support Karina and her family and assess for ongoing discharge needs.
[2020-11-03 20:01] VITALS: BP 136/66; PULSE 59; RESP 18; TEMP 36.6; O2SAT 97
[2020-11-03] MEDS: Melatonin 3 MG TAB 9 MG PO (21:47)
[2020-11-03] MEDS: Pantoprazole 40 MG TABCR PO (21:47)
[2020-11-03] MEDS: traZODone 50 MG TAB PO (21:47)
[2020-11-04] MEDS: Sucralfate 1 GM TAB PO ×2 (03:53→10:36)
[2020-11-04 04:01] VITALS: BP 140/68; PULSE 60; RESP 18; TEMP 37; O2SAT 97
[2020-11-04] MEDS: Acetaminophen 325 MG TAB 650 MG PO (06:09)
[2020-11-04] MEDS: Levothyroxine 25 MCG TAB PO (06:09)
[2020-11-04 07:16] LABS: Abs Immature Grans 0.09 10^3/uL (0.0-0.06); Absolute Basophil Count 0.09 10^3/uL (0.0-0.2); Absolute Eosinophil Count 0.46 10^3/uL (0.0-0.7); Absolute Lymphocyte Count 1.41 10^3/uL (1.2-3.4); Absolute Monocyte Count 0.61 10^3/uL (0.1-0.8); Absolute Neutrophil Count 7.04 10^3/uL (1.2-6.7); Basophils % 0.9; Eosinophils % 4.7; HCT 27.8 % (36.0-46.0); HGB 8.3 g/dL (11.2-15.7); Immature Grans % 0.9; Lymphocytes % 14.5; MCH 25.7 pg (27.0-33.0); MCHC 29.9 % (32.0-36.0); MCV 86.1 fL (80-95); MPV 9.9 fL (8.0-11.0); Monocytes % 6.3; Neutrophils % 72.7; Nucleated RBC 0 %; Platelet Count 243 10^3/uL (130-400); RBC 3.23 10^6/uL (3.93-5.22); RDW 17.1 % (11.7-14.6); RDW-SD 52.7 fL
[2020-11-04 07:23] LABS: Anion Gap 3.8 mmol/L (3-11); BUN 43 mg/dL (7-18); CO2 37.2 mmol/L (21.0-32.0); CREATININE 2.2 mg/dL (0.55-1.02); Calcium 8.6 mg/dL (8.5-10.1); Chloride 94 mmol/L (98-107); Estimated GFR 21.59 (mL/min/1.73m2); Glucose 332 mg/dL (74-106); Magnesium 1.8 mg/dL (1.8-2.4); Sodium 135 mmol/L (136-145)
[2020-11-04] MEDS: Budesonide/Formoterol 160/4.5 6 GM 60 PUFF INH IH (07:27)
[2020-11-04 08:01] VITALS: BP 147/65; PULSE 62; RESP 19; TEMP 36.8; O2SAT 96
[2020-11-04] MEDS: Furosemide 40 MG/4 ML VIAL IVP (08:03)
[2020-11-04] MEDS: Normal Saline Flush 10 ML SYR IVP (08:04)
[2020-11-04] MEDS: Insulin Aspart 300 UNITS/3 ML PEN SC ×2 (08:05→12:03)
[2020-11-04] MEDS: Gabapentin 100 MG CAP 200 MG PO (08:05)
[2020-11-04] MEDS: amLODIPine 2.5 MG TAB PO (08:05)
[2020-11-04] MEDS: PARoxetine 20 MG TAB PO (08:06)
[2020-11-04] MEDS: Metoprolol CR 25 MG TABCR PO (08:06)
[2020-11-04] MEDS: Pantoprazole 40 MG TABCR PO (08:06)
[2020-11-04] MEDS: busPIRone 15 MG TAB 7.5 MG PO (08:06)
[2020-11-04] MEDS: hydrALAZINE 25 MG TAB PO (08:06)
[2020-11-04] MEDS: Allopurinol 100 MG TAB PO (08:07)
[2020-11-04] MEDS: Docusate Sodium 100 MG CAP PO (08:07)
[2020-11-04] MEDS: Isosorbide Dinitrate 10 MG TAB 30 MG PO (08:07)
--- NOTE | 2020-11-04 11:26 | W.PM.DS.N ---
Date of service: 11/04/20 Time of Service: 11:26 DS: Diagnosis Discharge Diagnosis (1) GI bleed: Status: Chronic (2) GERD (gastroesophageal reflux disease): Status: Chronic (3) Iron deficiency: Status: Chronic (4) CKD (chronic kidney disease), stage IV: Status: Chronic (5) Anemia due to acute blood loss: Status: Acute (6) Moderate obstructive sleep apnea: Status: Chronic (7) Right renal mass: Status: Acute (8) Chronic iron deficiency anemia: Status: Acute Discharge Plan Disposition Patient Disposition: SNF (LEVEL 1) [facility] Condition: Stable Discharge Details Reason For Visit: GI BLEED Admit Date/Time: 11/01/20 19:39 Admit Provider: Fredo Weiss Attending Provider: Fredo Weiss Primary Care Provider: Kristal Quiñonez Hospital Course Hospital Course: This is a 80 female with a complex medical history, on Eliquis for PAF, in addition to h/o GI bleed who presented to the ED with c/o fatigue and shortness of breath, which she has at baseline. Work up in the ED shows HCT 21 and heme + stool, she had no abd pain. She is ordered for 2 unit PRBC and admitted to hospitalist services for further management. ED course complicated with increased SOB, with exam and repeat CXR demonstrating worsening CHF, with BNP >1000. Sats dropped and patient requiring BiPap. Transfusion held and she was given Lasix 80 IVP. She had excellent diuresis, weaned off BiPap with sats in mid 90s on NC. Transfusion resumed without incident and she was admitted accordingly. Palliative and surgical consults placed and discussion about EGD versus medical management was discussed with patient and MARQUEZ, her daughter Fina and decision was made for medical management. Her apixaban was discontinued and she will continue with carafate and bid ppi. she has remained hemodynamically stable with Hemoglobin and Hematocrit stable and at 8.3/27.8 at discharge. Plan is back to the [facility] with those medication recommendations and continue to follow with palliative care outpatient. of note she no longer has her cpap at the [facility] as she declines to wear it, and she passed an ambulatory pulse oximetry test and did not demonstrate need to supplemental oxygen on morning of discharge. discussed with Dr Choi Home Meds and New Rx's Prescriptions: Continued (DME) incentive spirometer Qty: 1 RF: 0 (DME) Oxygen Tank See Rx Instructions .ROUTE .MEDSUPPLY Qty: 1 RF: 0 albuterol sulfate 90 mcg/actuation HFA aerosol inhaler 2 puff IH Q6H PRNRF: 0 (DME) pen needle, diabetic [BD Ultra-Fine Mini Pen Needle] 31 gauge x 3/16 needle See Rx Instructions .ROUTE .MEDSUPPLY Qty: 200 RF: 3 (DME) pen needle, diabetic [BD Ultra-Fine Mini Pen Needle] 31 gauge x 3/16 needle See Rx Instructions .ROUTE .MEDSUPPLY Qty: 300 RF: 3 (DME) Portable Oxygen System Qty: 1 RF: 0 fluticasone propion-salmeterol [Advair Diskus] 250-50 mcg/dose blister with device 1 inh IH BID RF: 0 levothyroxine 75 mcg capsule 25 mcg PO DAILY RF: 0 paroxetine HCl [Paxil] 20 mg tablet 20 mg PO DAILY Qty: 90 RF: 3 pantoprazole 40 mg tablet,delayed release (DR/EC) 40 mg PO BID@729,1999 Qty: 180 RF: 3 amlodipine [Norvasc] 2.5 mg tablet 2.5 mg PO DAILY Qty: 90 RF: 3 metoprolol succinate 25 mg tablet extended release 24 hr 25 mg PO DAILY Qty: 90 RF: 3 isosorbide dinitrate 30 mg tablet 30 mg PO BID Qty: 60 RF: 5 nitroglycerin [Nitrostat] 0.4 mg tablet, sublingual 0.4 mg SUBLINGUAL Q5M PRN (Reason: chest pain) Qty: 50 RF: 5 buspirone 7.5 mg tablet 7.5 mg PO DAILY Qty: 90 RF: 3 gabapentin 100 mg capsule 200 mg PO BID Qty: 180 RF: 3 Tradjenta 5 mg tablet 5 mg PO DAILY RF: 0 hydralazine 25 mg tablet 25 mg PO DAILY RF: 0 docusate sodium 100 mg Capsule 100 mg PO DAILY RF: 0 cholecalciferol (vitamin D3) [Vitamin D3] 25 mcg (1,000 unit) Tablet 50 mcg PO DAILY RF: 0 acetaminophen [Tylenol] 325 mg tablet 650 mg PO Q6H PRN (Reason: Pain) RF: 0 insulin aspart U-100 [Novolog U-100 Insulin aspart] 100 unit/mL Solution See Rx Instructions .ROUTE .COMPLEX RF: 0 Lantus Solostar U-100 Insulin 100 unit/mL (3 mL) Insulin Pen 30 unit SUBCUT HS RF: 0 melatonin 10 mg Capsule 10 mg PO HS RF: 0 trazodone 50 mg tablet 50 mg PO HS RF: 0 sucralfate 1 gram tablet 1 g PO QID RF: 0 ferrous sulfate 325 mg (65 mg iron) Tablet 325 mg PO DAILY RF: 0 dicyclomine 20 mg Tablet 20 mg PO DAILY PRN (Reason: IBS) RF: 0 Albuterol-Ipatropium 0.5 mg 3 ml inhalation 4-6XD PRN (Reason: shortness of breath/wheezing) Qty: 60 RF: 0 allopurinol 100 mg tablet 100 mg PO DAILY RF: 0 insulin glargine 100 unit/mL (3 mL) insulin pen 40 unit subcut BID MDD 120 units RF: 0 furosemide 40 mg tablet 40 mg PO DAILY RF: 0 Discontinued atorvastatin 40 mg tablet 40 mg PO DAILY Qty: 90 RF: 3 CPAP inhalation RF: 0 apixaban 2.5 mg tablet 2.5 mg PO BID Qty: 60 RF: 3 Discharge Instructions Instructions: Heart Failure (DC), Gastrointestinal Bleeding (DC) Additional Instructions: check blood sugars before meals and bedtime and continue usual diabetes management or as directed by primary care provider. weight yourself 1-2 times weekly and report 3-5 pound weight gain, increased shortness of breath or swelling or concerns immediately. change positions slowly to avoid dizziness. report signs of bleeding, lightheadedness, dizziness or blood immediately Palliative care will continue to follow you outpatient to review and discuss goals of care. Stand Alone Forms: Nursing Discharge Form Referrals: Kristal Quiñonez DO [Primary Care Provider] - 11/12/20 11:00 am Activity:: Activity as Tolerated Equipment/Supplies:: No Equipment Needed Diet:: Carb Counting Discharge Orders Discharge Orders: Discharge Order (Routine); Ordered 11/04/20 Ordered By: Purvi Cano DS: Summary Time Spent with Patient providing and/or coordinating discharge services: Greater than 30 minutes Status at Discharge Functional status at discharge: uses cane/walker Overall status at discharge: patient is progressing back to baseline Mental Status: mental status grossly normal Speech and Movement: speech and movement normal Mood: congruent mood Affect: normal affect Exam Const General: cooperative, comfortable, no acute distress and ill appearing (of stated age) chronically Nutritional Appearance: obese HENNH Head: normal to inspection, normocephalic and atraumatic Mouth: oral mucosae normal Resp Effort & Inspection: normal respiratory effort Auscultation: diminished lung sounds bilaterally in the lower lung whitaker Cardio Rate: regular rate Rhythm: regular rhythm GI Inspection: normal to inspection and obesity Palpation: soft and nontender Auscultation: normal bowel sounds Skin General skin exam: no rashes or lesions noted Neuro General: patient alert, patient awake, patient oriented x3 and moves all extremities Psych Mental Status: mental status grossly normal Speech and Movement: speech and movement normal Mood: congruent mood Affect: normal affect DS: Data Vitals/I&O Vitals and I&O: Vital Signs Temperature 36.8 C 11/04/20 08:01 Temperature Source Tympanic 11/04/20 08:01 Pulse 62 11/04/20 08:01 Pulse Rhythm Irregular 11/04/20 08:49 Pulse 84 11/01/20 18:30 Respiratory Rate 19 11/04/20 08:01 Respiratory Effort Non-Labored 11/04/20 08:49 Respiratory Depth Normal 11/04/20 08:49 Respiratory Pattern Normal 11/04/20 08:49 Blood Pressure 147/65 H 11/04/20 08:01 Blood Pressure Mean 89 11/01/20 18:25 Blood Pressure Position Supine 11/01/20 16:56 Pulse Oximetry 96 11/04/20 08:01 Oxygen Delivery Method Nasal Cannula 11/04/20 08:01 Oxygen Flow Rate 2.5 11/04/20 08:01 Fraction of Inspired Oxygen (FIO2) 30 11/03/20 08:05 Pain Level 0 11/04/20 08:01 Comment 11/01/20 23:12 Intake & Output 11/03/20 11/03/20 11/04/20 11:59 23:59 11:59 Intake Total 950 / 2240 1290 / 2240 480 / 480 Output Total 1545 / 3945 2400 / 3945 1500 / 1500 Balance -595 / -1705 -1110 / -1705 -1020 / -1020 Weight 83.7 kg 85 kg Intake: IV Oral 940 / 2220 1280 / 2220 480 / 480 Output: Urine 1545 / 3945 2400 / 3945 1500 / 1500 Other: Urine Color Yellow Yellow Pale Yellow Urine Appearance Clear Clear Clear Stool Occult Blood Negative Stool Size Small Stool Characteristics Formed Hard Brown Data Completed and Pending Labs on day of discharge: Labs from last 24 hours 11/04/20 11/04/20 11/03/20 07:00 07:00 14:04 WBC 9.70 RBC 3.23 L Hgb 8.3 L 8.8 L Hct 27.8 L 29.9 L MCV 86.1 MCH 25.7 L MCHC 29.9 L RDW 17.1 H Plt Count 243 MPV 9.9 Immature Gran % 0.9 Neutrophils % 72.7 Lymphocytes % 14.5 Monocytes % 6.3 Eosinophils % 4.7 Basophils % 0.9 Nucleated RBC % 0 Absolute Neutrophils 7.04 H Absolute Lymphocytes 1.41 Absolute Monocytes 0.61 Absolute Eosinophils 0.46 Absolute Basophils 0.09 Sodium 135 L Potassium 4.0 Chloride 94 L Carbon Dioxide 37.2 H Anion Gap 3.8 BUN 43 H Creatinine 2.2 H Estimated GFR/1.73 m2 21.59 Glucose 332 H D Calcium 8.6 Magnesium 1.8 PFSH Medical History (Updated 11/02/20 @ 18:46 by Dominique Choi MD) Anemia CAD (coronary artery disease) Carotid stenosis s/p bilateral CEA Chronic diastolic CHF (congestive heart failure) Chronic iron deficiency anemia Chronic low back pain CKD (chronic kidney disease) COPD (chronic obstructive pulmonary disease) Depression with anxiety Diabetes mellitus 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 mellitus Diverticulitis DNI (do not intubate) DNR (do not resuscitate) Eye irritation Cellulitis per [facility] (Doxy & Eryth/Polymix/Steroid) Functional tremor GERD (gastroesophageal reflux disease) Gout Right foot, swelling/red/tender [ ] trial Rx History of pulmonary embolism Hyperlipidemia Hypertension Hypothyroidism Iron deficiency Moderate obstructive sleep apnea (01/21/20) with significant nocturnal hypoxemia 02/03/20 Sleep Clinic - CPAP ordered, f/u 04/2020 Obesity (BMI 30.0-34.9) DANYELLE (obstructive sleep apnea) Palliative care patient Paroxysmal atrial fibrillation Peripheral vascular disease POLST (Physician Orders for Life-Sustaining Treatment) done with Terra Kebede [employer] on 11/21/19 DNR/DNI Renal mass Rheumatoid arthritis Stroke due to embolism TIA (transient ischemic attack) Vascular dementia Surgical History H/O cardiac catheterization [address] History of left-sided carotid endarterectomy History of right-sided carotid endarterectomy S/P arterial stent leg x2 S/P arteriovenous (AV) fistula creation [facility] Family History Sister Cancer Diabetes Brother Cancer Diabetes Mother , At age 61 Diabetes Father , in 60s, unknown cause No problems noted. Other Heart disease Social History Smoking/Tobacco Use Status: Former Tobacco Use Smoking risk assessment performed?: Yes Alcohol Intake: never Drug use: Never Substance use type: does not use Adopted: No Foster care: No Household members: children Housing: house Number of Children: 3 Do you need help understanding health information?: Always current occupation: Retired; attends [employer] during the day Sexually active: No Do you think of yourself as: straight/heterosexual Current gender identity: female Seatbelt use: always Do you feel safe at home: Yes Do you feel safe in your relationship?: Yes Additional Social history: residing at [facility]
[2020-11-04 11:42] VITALS: PULSE 62; PULSE 65; PULSE 73; RESP 16; O2SAT 90; O2SAT 93; O2SAT 94
--- NOTE | 2020-11-04 12:31 | DM INPTCON_ITS ---
Date of service: 11/04/20 Time of Service: 12:31 Diabetes Inpatient Consult DESCRIPTION/ASSESSMENT: 80 year old female admitted with anemia, GI bleed, DM2, classs 2 obesity with stage 4 CKD. Following diabetic diet with soft bite sized texture with excellent intake (>75%). Most recent A1C elevated (8.8%) but most likely inaccurate in view of low Hgb. Recommend rechecking A1C, once anemia resolved. Karina lives at [facility] and has her meals/medications provided by staff at [facility]. INTERVENTION: No diabetes education provided at this time as does not manage meals/medications at this time. PLAN: Continue current meal plan, will remain available prn Time Spent in Nutritional Counseling and Treatment: 0
--- NOTE | 2020-11-04 13:19 | PT.INTREAT ---
Date of service: 11/04/20 Time of Service: 11:20 PT Notes Visit Reasons: GI BLEED Inpatient Physical Therapy Treatment Note [facility] Date: 11/04/2020 PRECAUTIONS: Fall SUBJECTIVE: Karina is agreeable to participating in PT. She states that she enjoys living at the [facility]. OBJECTIVE: PAIN: No c/o pain BED MOBILITY/TRANSFERS Sit-stand: SBA Stand-sit: S GAIT Assistive Device: FWW Weight bearing: Full Assist: SBA Distance: 80' Deviation: Stand rest x3, SOB ASSESSMENT: Patient tolerated session with SOB with gait training, requiring standing rest x3. PLAN: Continue with global strengthening and gait training for improved mobility and activity tolerance at SNF level. TREATMENT CODE/TIME: 10 minutes; 92335 (11:20)
--- NOTE | 2020-11-04 17:52 | CMDISCH_ITS ---
- If Service Date Differs Date of service: 11/04/20 Time of Service: 17:52 LACE Index Scoring Tool - Questions: Length of Stay (in days): 3 Acuity (Admit via E.D.?): Yes Comorbidities: Diabetes w/o Complication, Chronic Pulmonary Disease, Mild Liver/Renal Disease, Any Tumor, Dementia E.D. Visits: 9 - Answers: Total Score: 15 Risk of Readmission: High Risk Care Management Discharge Reason for Hospitalization: GI Bleed Discharge Plan: Karina will return to the [facility] today via RCT w/c van, coordinated by CM. She will follow up with her PCP and discharge plan of care. CM sent discharge summary to the [facility] for continuation of care. Patient/Family Education Needs: Review discharge instructions with Karina and staff at the [facility], discussion of self care and goals of care. Services Needed at Discharge: Half-Way Facility ([facility]), Transportation (RCT w/c van)
--- NOTE | 2020-11-05 13:37 | PT.INDS ---
Date of service: 11/05/20 Time of Service: 13:37 PT Notes Visit Reasons: GI BLEED Physical Therapy Inpatient Discharge Summary Date: 11/05/2020 Date of service: 11/03/2020 through 11/04/2020 This is a clinical summary of care provided on the duration of dates listed above. No charge was made in the completion of this documentation. Referring Doctor: Dominique Choi MD PT Orders: PT CONSULT: Limited ability Precautions: Fall. Standard. Activity as tolerated. Patient Profile/Admitting Diagnosis: Karina is a 80-year-old female with past medical history significant for chronic diastolic congestive heart failure, carotid artery disease, and history of stroke who presented to the ED today from a local SNF due to increasing fatigue. Patient is diagnosed with exacerbation of congestive heart failure, GI bleed, GERD, and iron deficiency anemia. PMHX: Medical History (Updated 11/01/20 @ 19:35 by Fredo Weiss MD) Anemia CAD (coronary artery disease) Carotid stenosis s/p bilateral CEA Chronic diastolic CHF (congestive heart failure) Chronic iron deficiency anemia Chronic low back pain CKD (chronic kidney disease) COPD (chronic obstructive pulmonary disease) Depression with anxiety Diabetes mellitus 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 mellitus Diverticulitis DNI (do not intubate) DNR (do not resuscitate) Eye irritation Cellulitis per Opto (Doxy & Eryth/Polymix/Steroid) Functional tremor GERD (gastroesophageal reflux disease) Gout Right foot, swelling/red/tender [ ] trial Rx History of pulmonary embolism Hyperlipidemia Iron deficiency Moderate obstructive sleep apnea (01/21/20) with significant nocturnal hypoxemia 02/03/20 Sleep Clinic - CPAP ordered, f/u 04/2020 Obesity (BMI 30.0-34.9) DANYELLE (obstructive sleep apnea) Palliative care patient Paroxysmal atrial fibrillation Peripheral vascular disease POLST (Physician Orders for Life-Sustaining Treatment) done with Terra Kebede ACOUSTICAL LOGGING ENGINEER on 11/21/19 DNR/DNI Renal mass Rheumatoid arthritis Stroke due to embolism TIA (transient ischemic attack) Vascular dementia Surgical History H/O cardiac catheterization [address] History of left-sided carotid endarterectomy History of right-sided carotid endarterectomy S/P arterial stent leg x2 S/P arteriovenous (AV) fistula creation [facility] in [place] Social History/Home Situation: Karina currently lives at the [facility]. Equipment Owned/DME: Front-wheeled walker Subjective: NT. See most recent PRECISION MACHINIST notes. Objective: General Observation: NT. See most recent PRECISION MACHINIST notes. Mental Status: NT. See most recent PRECISION MACHINIST notes. Pain: NT. See most recent PRECISION MACHINIST notes. Singularly request more a lot ROM: Right Upper Extremity: Shoulder Flexion WFL. Shoulder abduction WFL. Elbow flexion WFL. Wrist flexion WFL. Opening and closing of hand WFL. Left Upper Extremity: Shoulder Flexion WFL. Shoulder abduction WFL. Elbow flexion WFL. Wrist flexion WFL. Opening and closing of hand WFL. Right Lower Extremity: Hip flexion WFL. Hip abduction WFL. Knee flexion WFL. Ankle dorsiflexion WFL. Ankle plantarflexion WFL. Left Lower Extremity: Hip flexion WFL. Hip abduction WFL. Knee flexion WFL. Ankle dorsiflexion WFL. Ankle plantarflexion WFL. Strength: Right Upper Extremity: Shoulder flexors 4-/5. Shoulder abductors 4-/5. Elbow flexors 4-/5. Elbow extensors 4-/5. [employer] Principal strong. Left Upper Extremity: Shoulder flexors 4-/5. Shoulder abductors 4-/5. Elbow flexors 4-/5. Elbow extensors 4-/5. [employer] Principal strong. Right Lower Extremity: Hip flexors 3+/5. Hip abductors 3+/5. Knee flexors 3+/5. Knee extensors 3+/5. Ankle dorsiflexors 3+/5. Ankle plantarflexors 4-/5. Left Lower Extremity: Hip flexors 3+/5. Hip abductors 3+/5. Knee flexors 3+/5. Knee extensors 3+/5. Ankle dorsiflexors 3+/5. Ankle plantarflexors 4-/5. Sensation: Intact as to pain and pressure on bilateral lower extremities. Bed Mobility/Transfers: Sit to stand SBA Stand to sit supervision Chair to bed supervision Gait: Tolerated 250 feet of level surface ambulation using front wheeled walker with full weight bearing using step through gait pattern with mild path deviation seen and decreased minna. Needed 1 seated rest due to fatigue. Reported minimal aching in the right LE that subsided with rest. Balance: Static Sitting: Normal Dynamic Sitting: Normal Static Standing: Fair Dynamic Standing: Fair 4-stage balance test: Patient only tolerated feet together for 10 seconds but was unable to perform semi-tandem, full tandem, and 1 legged stance indicating high risk for falls. Assessment: Karina continues to demonstrate functional mobility decline requiring use of a front wheeled walker and assistance of another for all mobility ADL performance, generalized weakness, decreased activity tolerance, and difficulty with walking. Patient continues to present with clinical signs and symptoms consistent with current/admitting diagnoses that have resulted to mobility limitations, gait instability, generalized weakness, and impairment of motor control as demonstrated by the following impairment level findings: 1. Decreased strength to B LE major muscle groups 2. Impaired standing balance 3. Impaired activity tolerance Impairments are continuing to contribute to the following functional limitations: 1. Inability to safely ambulate without assistive device and supervision 2. Increase completion time for mobility ADL performance 3. Increased fall risk 4 continues to. Inability to negotiate steps alone safely Goals: Goals X1 week 1. Supine-Sit independent NOT MET 2. Sit-Supine independent NOT MET 3. Sit-Stand independent NOT MET 4. Stand-Sit independent NOT MET 5. Bed-Chair independent NOT MET 6. Chair-Bed independent NOT MET 7. Independent gait on level surface with use of least restrictive device for at least 300 feet without report of pain nor dyspnea NOT MET 8. Independent stair negotiation while holding onto bilateral rails for at least 10 steps without report of pain nor dyspnea NOT MET 9. Independent with home exercise program NOT MET 10. Good static and dynamic standing balance/tolerance NOT MET DISCHARGE RECOMMENDATIONS: Return to SNF when medically cleared by hospitalist. Continue skilled physical therapy services for functional mobility progression at SNF. TREATMENT CODE/TIME: [place] Thank you for the opportunity to participate in the care of this patient. Theresa Pro PT, DPT, CLT [facility] [place], [place]
== END 2020-11-04 13:52 | disposition skilled nursing facility (03) | DRG 377 ==
LOC: ER 20:03 → MS 22:00
PROVIDERS: Internal Medicine; Admitting Provider General Practice; Emergency Provider Physician Assistant; PCP Student in an Organized Health Care Education/Training Program; Visit Provider General Practice
DX: K92.1 Melena (principal); I50.33 Acute on chronic diastolic (congestive) heart failure; N18.4 Chronic kidney disease, stage 4 (severe); D62 Acute posthemorrhagic anemia; I13.0 Hypertensive heart and chronic kidney disease with heart failure and stage 1 through stage 4 chronic kidney disease, or unspecified chronic kidney disease; E03.9 Hypothyroidism, unspecified; I25.10 Atherosclerotic heart disease of native coronary artery without angina pectoris; E11.22 Type 2 diabetes mellitus with diabetic chronic kidney disease; J44.9 Chronic obstructive pulmonary disease, unspecified; I65.29 Occlusion and stenosis of unspecified carotid artery; I48.0 Paroxysmal atrial fibrillation; G47.33 Obstructive sleep apnea (adult) (pediatric); Z86.73 Personal history of transient ischemic attack (TIA), and cerebral infarction without residual deficits; E78.5 Hyperlipidemia, unspecified; K21.9 Gastro-esophageal reflux disease without esophagitis; Z66 Do not resuscitate; Z79.01 Long term (current) use of anticoagulants; G89.29 Other chronic pain; M54.5 Low back pain; F41.8 Other specified anxiety disorders; E11.42 Type 2 diabetes mellitus with diabetic polyneuropathy; M10.9 Gout, unspecified; Z86.711 Personal history of pulmonary embolism; E66.9 Obesity, unspecified; Z51.5 Encounter for palliative care; I73.9 Peripheral vascular disease, unspecified; M06.9 Rheumatoid arthritis, unspecified; F01.50 Vascular dementia, unspecified severity, without behavioral disturbance, psychotic disturbance, mood disturbance, and anxiety; D50.9 Iron deficiency anemia, unspecified; G25.0 Essential tremor; N28.89 Other specified disorders of kidney and ureter
CPT/HCPCS: 36415; 36430; 51702; 80048; 80053; 83690; 84145; 86850; 86900; 86901; 86920; 93005; 94618; 94640; 96374; 96375; 97110; 97162; 97530; 99222; 99232; 99233; 99239; 99253; 99255; 99285; 71045; 71046; 81003; 81015; 83605; 83735; 83880; 84439; 84443; 84484; 85014; 85018; 85025; 85610; 85730; 93010; 93306; 94660; J1756; J1940; J2060; J7620; P9016

== ENCOUNTER 2020-11-01 17:05 | Outpatient (REF) | payer MEDICARE, MEDICAID, SELFPAY ==
[2020-11-01 14:27] LABS: Abs Immature Grans 0.16 10^3/uL (0.0-0.06); Absolute Basophil Count 0.07 10^3/uL (0.0-0.2); Absolute Eosinophil Count 0.44 10^3/uL (0.0-0.7); Absolute Lymphocyte Count 1.61 10^3/uL (1.2-3.4); Absolute Monocyte Count 0.71 10^3/uL (0.1-0.8); Absolute Neutrophil Count 8.65 10^3/uL (1.2-6.7); Basophils % 0.6; Eosinophils % 3.8; Immature Grans % 1.4; Lymphocytes % 13.8; MCH 24.3 pg (27.0-33.0); MCHC 27.7 % (32.0-36.0); MCV 87.6 fL (80-95); Monocytes % 6.1; Neutrophils % 74.3; Nucleated RBC 0 %; Platelet Count 287 10^3/uL (130-400); RBC 2.51 10^6/uL (3.93-5.22); RDW 18.5 % (11.7-14.6); RDW-SD 58.6 fL; WBC 11.64 10^3/uL (4.4-10.8)
[2020-11-01 14:38] LABS: BUN 47 mg/dL (7-18); CREATININE 2.2 mg/dL (0.55-1.02); Calcium 8.9 mg/dL (8.5-10.1); Chloride 103 mmol/L (98-107); Estimated GFR 21.59 (mL/min/1.73m2); Glucose 141 mg/dL (74-106); Potassium 4.7 mmol/L (3.5-5.1); Sodium 139 mmol/L (136-145)
[2020-11-01 14:44] LABS: Diff Comment RBC Morph Reviewed; HGB 6.1 g/dL (11.2-15.7)
[2020-11-01 14:45] LABS: Hypochromasia 1+
[2020-11-01 14:47] LABS: Hemoglobin A1C 8.8 % (<5.7)
== END 2020-11-01 17:06 | disposition home or self-care (01) ==
LOC: NCHCN 17:05
PROVIDERS: PCP Student in an Organized Health Care Education/Training Program; Visit Provider Family Medicine
DX: G30.1 Alzheimer's disease with late onset (principal); E66.01 Morbid (severe) obesity due to excess calories; F41.8 Other specified anxiety disorders; D50.9 Iron deficiency anemia, unspecified; I50.32 Chronic diastolic (congestive) heart failure; E11.40 Type 2 diabetes mellitus with diabetic neuropathy, unspecified
CPT/HCPCS: 80048; 83036; 83735; 85025

== ENCOUNTER 2020-11-05 14:23 | Outpatient (REF) | payer MEDICARE, MEDICAID, SELFPAY ==
[2020-11-05 14:59] LABS: Abs Immature Grans 0.11 10^3/uL (0.0-0.06); Absolute Eosinophil Count 0.43 10^3/uL (0.0-0.7); Absolute Lymphocyte Count 1.31 10^3/uL (1.2-3.4); Absolute Monocyte Count 0.59 10^3/uL (0.1-0.8); Absolute Neutrophil Count 8.05 10^3/uL (1.2-6.7); Basophils % 0.9; Eosinophils % 4.1; HCT 32.1 % (36.0-46.0); HGB 9.3 g/dL (11.2-15.7); Lymphocytes % 12.4; MCH 25.3 pg (27.0-33.0); MCV 87.2 fL (80-95); MPV 10.7 fL (8.0-11.0); Monocytes % 5.6; Nucleated RBC 0 %; Platelet Count 304 10^3/uL (130-400); RBC 3.68 10^6/uL (3.93-5.22); RDW 17.1 % (11.7-14.6); RDW-SD 53.7 fL; WBC 10.59 10^3/uL (4.4-10.8)
== END 2020-11-05 14:24 | disposition home or self-care (01) ==
LOC: LBN 14:23
PROVIDERS: PCP Student in an Organized Health Care Education/Training Program; Visit Provider Family Medicine
DX: D62 Acute posthemorrhagic anemia (principal); E61.1 Iron deficiency; K92.2 Gastrointestinal hemorrhage, unspecified
CPT/HCPCS: 85025

== ENCOUNTER 2020-11-10 14:19 | Outpatient (REF) | payer SELFPAY ==
[2020-11-10 15:59] LABS: Abs Immature Grans 0.04 10^3/uL (0.0-0.06); Absolute Basophil Count 0.07 10^3/uL (0.0-0.2); Absolute Eosinophil Count 0.52 10^3/uL (0.0-0.7); Absolute Lymphocyte Count 1.23 10^3/uL (1.2-3.4); Absolute Monocyte Count 0.43 10^3/uL (0.1-0.8); Absolute Neutrophil Count 7.38 10^3/uL (1.2-6.7); Basophils % 0.7; Eosinophils % 5.4; HCT 31.6 % (36.0-46.0); HGB 9.1 g/dL (11.2-15.7); Immature Grans % 0.4; Lymphocytes % 12.7; MCH 25.4 pg (27.0-33.0); MCHC 28.8 % (32.0-36.0); MCV 88.3 fL (80-95); MPV 10.3 fL (8.0-11.0); Monocytes % 4.4; Neutrophils % 76.4; Nucleated RBC 0 %; Platelet Count 272 10^3/uL (130-400); RBC 3.58 10^6/uL (3.93-5.22); RDW 16.7 % (11.7-14.6); RDW-SD 54.1 fL; WBC 9.67 10^3/uL (4.4-10.8)
== END 2020-12-01 23:59 | disposition home or self-care (01) ==
LOC: NCHCN 14:19
PROVIDERS: PCP Student in an Organized Health Care Education/Training Program; Visit Provider Family Medicine
DX: D64.9 Anemia, unspecified (principal)
CPT/HCPCS: 85025

== ENCOUNTER 2020-12-08 15:52 | Outpatient (REF) | payer MEDICARE, MEDICAID, SELFPAY ==
[2020-12-08 17:45] LABS: Absolute Basophil Count 0.07 10^3/uL (0.0-0.2); Absolute Eosinophil Count 0.37 10^3/uL (0.0-0.7); Absolute Lymphocyte Count 1.38 10^3/uL (1.2-3.4); Absolute Monocyte Count 0.55 10^3/uL (0.1-0.8); Absolute Neutrophil Count 8.03 10^3/uL (1.2-6.7); Basophils % 0.7; Eosinophils % 3.5; HCT 28.9 % (36.0-46.0); HGB 8.4 g/dL (11.2-15.7); Lymphocytes % 13.1; MCH 24.8 pg (27.0-33.0); MCHC 29.1 % (32.0-36.0); MCV 85.3 fL (80-95); MPV 11.1 fL (8.0-11.0); Monocytes % 5.2; Neutrophils % 76.5; Nucleated RBC 0 %; Platelet Count 276 10^3/uL (130-400); RBC 3.39 10^6/uL (3.93-5.22); RDW 17.2 % (11.7-14.6); RDW-SD 52.8 fL
[2020-12-08 18:24] LABS: Iron 49 ug/dL (50-170); Total Iron Binding Capacity 281 ug/dL (250-450); Transferrin Sat 17 % (15-50)
[2020-12-08 18:57] LABS: Albumin 3.5 g/dL (3.4-5.0); Anion Gap 11.7 mmol/L (3-11); BUN 37 mg/dL (7-18); CO2 30.3 mmol/L (21.0-32.0); CREATININE 1.8 mg/dL (0.55-1.02); Calcium 9.2 mg/dL (8.5-10.1); Chloride 99 mmol/L (98-107); Estimated GFR 27.21 (mL/min/1.73m2); Ferritin 131 ng/mL (8-252); Glucose 227 mg/dL (74-106); Potassium 4.4 mmol/L (3.5-5.1); Sodium 141 mmol/L (136-145)
[2020-12-08 19:20] LABS: PHOSPHORUS 4.2 mg/dL (2.6-4.7); Uric Acid 7.3 mg/dL (2.6-6.0)
[2020-12-10 09:33] LABS: Parathyroid Hormone,Intact 46 pg/mL (19-88)
== END 2020-12-08 15:53 | disposition home or self-care (01) ==
LOC: NCHCN 15:52
PROVIDERS: Internal Medicine Nephrology; PCP Student in an Organized Health Care Education/Training Program; Visit Provider Family Medicine
DX: N18.4 Chronic kidney disease, stage 4 (severe) (principal)
CPT/HCPCS: 80048; 82040; 82397; 82728; 83540; 83550; 83970; 84100; 84550; 85025

== ENCOUNTER 2020-12-10 12:23 | Outpatient (REF) | payer MEDICARE, MEDICAID, SELFPAY ==
[2020-12-10 15:05] LABS: PROTEIN < 6.0 mg/dL
[2020-12-10 15:07] LABS: COMMENT (LAB VIEW ONLY) 42.14 mg/dL
== END 2020-12-10 12:24 | disposition home or self-care (01) ==
LOC: NCHCN 12:23
PROVIDERS: PCP Student in an Organized Health Care Education/Training Program; Visit Provider Family Medicine
DX: N18.4 Chronic kidney disease, stage 4 (severe) (principal)
CPT/HCPCS: 82565; 84156

== ENCOUNTER 2020-12-28 02:40 | Outpatient (RCR) | payer MEDICARE, MEDICAID, SELFPAY ==
[2020-12-28] MEDS: IRON SUCROSE COMPLEX 300 MG in Normal Saline 250 ML 176.667 MG IVPB (10:39)
[2020-12-28] MEDS: Normal Saline Flush 10 ML SYR IVP (10:39)
== END 2020-12-31 23:59 | disposition home or self-care (01) ==
LOC: INF 02:40
PROVIDERS: PCP Student in an Organized Health Care Education/Training Program; Visit Provider Nurse Practitioner Acute Care
DX: N18.4 Chronic kidney disease, stage 4 (severe) (principal); D63.1 Anemia in chronic kidney disease; D50.9 Iron deficiency anemia, unspecified
CPT/HCPCS: 96365; 96366; J1756

== ENCOUNTER 2020-12-28 18:46 | Outpatient (REF) | payer MEDICARE, MEDICAID, SELFPAY ==
[2020-12-28 18:55] LABS: TSH (W/Ref FT4) 3.04 uIU/mL (0.36-3.74)
== END 2020-12-28 18:47 | disposition home or self-care (01) ==
LOC: LBN 18:46
PROVIDERS: PCP Student in an Organized Health Care Education/Training Program; Visit Provider Family Medicine
DX: R53.83 Other fatigue (principal); E66.01 Morbid (severe) obesity due to excess calories
CPT/HCPCS: 84443

== ENCOUNTER 2021-01-03 19:14 | Outpatient (REF) | payer MEDICARE, MEDICAID, SELFPAY ==
[2021-01-03 20:05] LABS: HCT 29.4 % (36.0-46.0); HGB 8.2 g/dL (11.2-15.7)
[2021-01-03 20:20] LABS: Iron 38 ug/dL (50-170); Total Iron Binding Capacity 275 ug/dL (250-450); Transferrin Sat 14 % (15-50)
[2021-01-03 20:34] LABS: Ferritin 270 ng/mL (8-252)
== END 2021-01-03 19:15 | disposition home or self-care (01) ==
LOC: LBN 19:14
PROVIDERS: PCP Student in an Organized Health Care Education/Training Program; Visit Provider Family Medicine
DX: R53.83 Other fatigue (principal); E66.01 Morbid (severe) obesity due to excess calories; D64.9 Anemia, unspecified
CPT/HCPCS: 82728; 83540; 83550; 85014; 85018

== ENCOUNTER 2021-01-12 02:28 | Outpatient (RCR) | payer MEDICARE, MEDICAID, SELFPAY ==
[2021-01-06] MEDS: Normal Saline Flush 10 ML SYR IVP (10:27)
[2021-01-06] MEDS: IRON SUCROSE COMPLEX 300 MG in Normal Saline 250 ML 176.667 MG IVPB (10:27)
[2021-01-12] MEDS: IRON SUCROSE COMPLEX 300 MG in Normal Saline 250 ML 176.667 MG IVPB (10:17)
[2021-01-12] MEDS: Normal Saline Flush 10 ML SYR IVP (10:18)
[2021-01-12 10:36] LABS: HCT 28.1 % (36.0-46.0)
[2021-01-12] MEDS: Darbepoetin 40 MCG SYR SC (10:58)
== END 2021-01-31 23:59 | disposition home or self-care (01) ==
LOC: INF 02:28
PROVIDERS: Internal Medicine Nephrology; PCP Student in an Organized Health Care Education/Training Program; Visit Provider Nurse Practitioner Acute Care
DX: N18.4 Chronic kidney disease, stage 4 (severe) (principal); D63.1 Anemia in chronic kidney disease
CPT/HCPCS: 36415; 96365; 96366; 96372; 85014; 85018; J0881; J1756

== ENCOUNTER 2021-02-09 13:15 | Outpatient (RCR) | payer MEDICARE, MEDICAID, SELFPAY ==
[2021-02-09 13:21] LABS: HCT 30.7 % (36.0-46.0); HGB 9.1 g/dL (11.2-15.7)
[2021-02-09] MEDS: Darbepoetin 40 MCG SYR SC (13:32)
== END 2021-03-02 23:59 | disposition home or self-care (01) ==
LOC: INF 13:15
PROVIDERS: PCP Student in an Organized Health Care Education/Training Program; Visit Provider Nurse Practitioner Acute Care
DX: N18.4 Chronic kidney disease, stage 4 (severe) (principal); D63.1 Anemia in chronic kidney disease
CPT/HCPCS: 36415; 96372; 85014; 85018; J0881

== ENCOUNTER 2021-03-09 13:30 | Outpatient (RCR) | payer MEDICARE, MEDICAID, SELFPAY ==
[2021-03-09 14:20] LABS: HGB 9.2 g/dL (11.2-15.7)
[2021-03-09] MEDS: Darbepoetin 40 MCG SYR SC (14:51)
== END 2021-04-02 23:59 | disposition home or self-care (01) ==
LOC: INF 13:30
PROVIDERS: Internal Medicine Nephrology; PCP Student in an Organized Health Care Education/Training Program; Visit Provider Nurse Practitioner Acute Care
DX: N18.4 Chronic kidney disease, stage 4 (severe) (principal); D63.1 Anemia in chronic kidney disease
CPT/HCPCS: 36415; 96372; 85018; J0881

== ENCOUNTER 2021-04-06 13:30 | Outpatient (RCR) | payer MEDICARE, MEDICAID, SELFPAY ==
[2021-04-06 14:00] LABS: HCT 32.5 % (36.0-46.0); HGB 9.6 g/dL (11.2-15.7)
[2021-04-06] MEDS: Darbepoetin 40 MCG SYR SC (14:21)
[2021-04-06 14:26] LABS: Ferritin 190 ng/mL (8-252)
[2021-04-06 15:04] LABS: Iron 41 ug/dL (50-170); Total Iron Binding Capacity 281 ug/dL (250-450); Transferrin Sat 15 % (15-50)
== END 2021-05-03 23:59 | disposition home or self-care (01) ==
LOC: INF 13:30
PROVIDERS: PCP Student in an Organized Health Care Education/Training Program; Visit Provider Nurse Practitioner Acute Care
DX: N18.4 Chronic kidney disease, stage 4 (severe) (principal); D63.1 Anemia in chronic kidney disease
CPT/HCPCS: 36415; 96372; 82728; 83540; 83550; 85014; 85018; J0881

== ENCOUNTER 2021-05-04 13:00 | Outpatient (RCR) | payer MEDICARE, MEDICAID, SELFPAY ==
[2021-05-04 13:17] LABS: HGB 9.5 g/dL (11.2-15.7)
[2021-05-04] MEDS: Darbepoetin 40 MCG SYR SC (13:29)
== END 2021-06-02 23:59 | disposition home or self-care (01) ==
LOC: INF 13:00
PROVIDERS: Nurse Practitioner Family; PCP Student in an Organized Health Care Education/Training Program; Visit Provider Nurse Practitioner Acute Care
DX: N18.4 Chronic kidney disease, stage 4 (severe) (principal); D63.1 Anemia in chronic kidney disease
CPT/HCPCS: 36415; 96372; 85014; 85018; J0881

== ENCOUNTER 2021-05-30 02:34 | Emergency (ER) | payer MEDICARE, MEDICAID, SELFPAY ==
[2021-05-30] VITALS (11 sets, daily range): BP systolic 190–203; BP diastolic 46–66; PULSE 72–79; RESP 20; TEMP 36.5; O2SAT 95–100
--- NOTE | 2021-05-30 02:44 | W.ED.GENAD ---
Discharge Plan Disposition Patient Disposition: HOME Condition: Stable Discharge Details Clinical Impression: Accidental fall from bed, Closed head injury, Contusion of right leg, Abrasion of right leg Primary Care Provider: Kristal Quiñonez ED Provider: Estrellita Vences Home Meds and New Rx's Prescriptions: Continued (DME) incentive spirometer Qty: 1 RF: 0 (DME) Oxygen Tank See Rx Instructions .ROUTE .MEDSUPPLY Qty: 1 RF: 0 albuterol sulfate 90 mcg/actuation HFA aerosol inhaler 2 puff IH Q6H PRNRF: 0 (DME) pen needle, diabetic [BD Ultra-Fine Mini Pen Needle] 31 gauge x 3/16 needle See Rx Instructions .ROUTE .MEDSUPPLY Qty: 200 RF: 3 (DME) pen needle, diabetic [BD Ultra-Fine Mini Pen Needle] 31 gauge x 3/16 needle See Rx Instructions .ROUTE .MEDSUPPLY Qty: 300 RF: 3 (DME) Portable Oxygen System Qty: 1 RF: 0 fluticasone propion-salmeterol [Advair Diskus] 250-50 mcg/dose blister with device 1 inh IH BID RF: 0 levothyroxine 75 mcg capsule 25 mcg PO DAILY RF: 0 pantoprazole 40 mg tablet,delayed release (DR/EC) 40 mg PO BID@07,1999 Qty: 180 RF: 3 amlodipine [Norvasc] 2.5 mg tablet 2.5 mg PO DAILY Qty: 90 RF: 3 metoprolol succinate 25 mg tablet extended release 24 hr 25 mg PO DAILY Qty: 90 RF: 3 nitroglycerin [Nitrostat] 0.4 mg tablet, sublingual 0.4 mg SUBLINGUAL Q5M PRN (Reason: chest pain) Qty: 50 RF: 5 gabapentin 100 mg capsule 200 mg PO BID Qty: 180 RF: 3 Tradjenta 5 mg tablet 5 mg PO DAILY RF: 0 hydralazine 25 mg tablet 25 mg PO DAILY RF: 0 docusate sodium 100 mg Capsule 100 mg PO DAILY RF: 0 cholecalciferol (vitamin D3) [Vitamin D3] 25 mcg (1,000 unit) Tablet 50 mcg PO DAILY RF: 0 acetaminophen [Tylenol] 325 mg tablet 650 mg PO Q6H PRN (Reason: Pain) RF: 0 insulin aspart U-100 [Novolog U-100 Insulin aspart] 100 unit/mL Solution See Rx Instructions .ROUTE .COMPLEX RF: 0 Lantus Solostar U-100 Insulin 100 unit/mL (3 mL) Insulin Pen 30 unit SUBCUT HS RF: 0 trazodone 50 mg tablet 50 mg PO HS RF: 0 isosorbide dinitrate 30 mg tablet 30 mg PO DAILY RF: 0 paroxetine HCl [Paxil] 20 mg tablet 10 mg PO DAILY RF: 0 buspirone 7.5 mg tablet 5 mg PO DAILY RF: 0 ferrous sulfate 325 mg (65 mg iron) Tablet 325 mg PO DAILY RF: 0 Albuterol-Ipatropium 0.5 mg 3 ml inhalation 4-6XD PRN (Reason: shortness of breath/wheezing) Qty: 60 RF: 0 allopurinol 100 mg tablet 100 mg PO DAILY RF: 0 insulin glargine 100 unit/mL (3 mL) insulin pen 60 unit subcut BID MDD 120 units RF: 0 furosemide 40 mg tablet 40 mg PO DAILY RF: 0 Discharge Instructions Instructions: Head Injury (ED), Contusion in Adults (ED), Abrasion (ED) Additional Instructions: All of the imaging obtained in the emergency department today were negative for acute findings Alternate tylenol and motrin as needed and directed for pain. Follow-up with your primary care doctor in 1 week. Return to the emergency department with any worsening or new concerning symptoms. Discharge Data Discharge Date/Time-TO BE ENTERED AT DEPARTURE: 05/30/21 06:05 Discharge Physician: Estrellita Vences Medical Decision Making 81-year-old w/ a h/o coronary artery disease, CHF, anemia, CKD, COPD, anxiety, depression, diabetes, GERD, hypertension, hyperlipidemia, paroxysmal atrial fibrillation, stroke, TIA, dementia presents for headache and right leg pain status post fall out of bed when she rolled over while sleeping in her bed at the time. She has a skin tear/abrasion to her right lower leg. No other evidence of trauma. No head trauma, chest or abdominal trauma. No midline spinal tenderness. She has pain in bilateral thighs and right lower leg with range of motion. No obvious orthopedic deformities. Lungs clear. Abdomen soft nontender. Patient referred for CT head and cervical spine and extremity x-rays which were reviewed and negative. Patient was given Tylenol with some relief and Tramadol for additional relief. We will discharge patient back to the [facility]. Advised on the importance of RICE. Her right leg wounds were irrigated and dressed. Advised to follow up with the primary care doctor for re-evaluation. Usual and customary return precautions given prior to discharge. Medical Records Medical records reviewed: Yes I reviewed the patient's medical records. Imaging Data Radiologic Study: Radiologist's impression: XR Right Ankle Exam date and time: 05/30/2021 3:04 AM Age: 81 years old Clinical indication: Pain; Ankle; Right; Prior surgery; Surgery date: 6+ months TECHNIQUE: Imaging protocol: XR Right ankle. Views: 3 or more views. COMPARISON: No relevant prior studies available. FINDINGS: Bones/joints: Patient status post distant prior fibular ORIF. No acute fracture or dislocation. Soft tissues: Normal. IMPRESSION: No acute findings XR Pelvis Exam date and time: 05/30/2021 3:04 AM Age: 81 years old Clinical indication: Pain; Other: Fall TECHNIQUE: Imaging protocol: XR pelvis. Views: 1 or 2 view. COMPARISON: CT CHEST/ABD/PEL WO 05/05/2020 1:31 AM FINDINGS: Bones/joints: Unremarkable. No acute fracture. Soft tissues: Unremarkable. IMPRESSION: No acute findings. XR Right Tibia and Fibula Exam date and time: 05/30/2021 3:04 AM Age: 81 years old Clinical indication: Other: Leg pain - fall TECHNIQUE: Imaging protocol: XR Right tibia and fibula. Views: 2 views. COMPARISON: CR XR ANKLE RT COMPLETE 05/30/2021 3:29 AM FINDINGS: Bones/joints: Patient status post distant prior distal fibular ORIF. No acute fracture or dislocation Soft tissues: Normal. IMPRESSION: No acute findings XR Left Femur Exam date and time: 05/30/2021 3:04 AM Age: 81 years old Clinical indication: Pain; Other: Fall TECHNIQUE: Imaging protocol: XR Left femur. Views: 2 views. COMPARISON: CR XR PELVIS AP 05/30/2021 3:24 AM FINDINGS: Bones/joints: Unremarkable. No acute fracture. Soft tissues: Unremarkable. IMPRESSION: No acute findings. XR Right Femur Exam date and time: 05/30/2021 3:04 AM Age: 81 years old Clinical indication: Pain; Other: Fall TECHNIQUE: Imaging protocol: XR Right femur. Views: 2 views. COMPARISON: CR XR PELVIS AP 05/30/2021 3:24 AM FINDINGS: Bones/joints: Unremarkable. No acute fracture. Soft tissues: Unremarkable. IMPRESSION: No acute findings. CT Head Without Contrast Exam date and time: 05/30/2021 3:04 AM Age: 81 years old Clinical indication: Pain; Other: Fall TECHNIQUE: Imaging protocol: Computed tomography of the head without contrast. COMPARISON: CT HEAD CERVICAL SPINE WO 05/05/2020 1:24 AM FINDINGS: Mildly limited due to streak artifact Brain: Mild volume loss . Chronic left parietal infarctions No hemorrhage. Ykoy-il-kopgbqny white matter disease. No mass effect. Cerebral ventricles: No ventriculomegaly. Paranasal sinuses: Visualized sinuses are unremarkable. No fluid levels. Mastoid air cells: Visualized mastoid air cells are well aerated. Bones/joints: Unremarkable. No acute fracture. Soft tissues: Unremarkable. IMPRESSION: No acute intracranial hemorrhage CT Cervical Spine Without Contrast Exam date and time: 05/30/2021 3:04 AM Age: 81 years old Clinical indication: Pain; Other: Fall TECHNIQUE: Imaging protocol: Computed tomography images of the cervical spine without contrast. COMPARISON: CT HEAD CERVICAL SPINE WO 05/05/2020 1:24 AM FINDINGS: Bones/joints: No acute fracture. Loss of cervical lordosis is presumably on a degenerative basis. Discs/Spinal canal/Neural foramina: No significant spinal canal stenosis. No significant foraminal stenosis Soft tissues: Partially calcified right-sided thyroid nodule measuring 14 mm IMPRESSION: No acute cervical fracture HPI General Mode of arrival: EMS. Date/Time Provider Initiated Documentation: 05/30/21 02:44. Limitations to Documentation: no limitations. Information obtained by: patient. HPI Narrative: Patient is a 81-year-old female with a history of coronary artery disease, CHF, anemia, CKD, COPD, anxiety, depression, diabetes, GERD, hypertension, hyperlipidemia, paroxysmal atrial fibrillation, stroke, TIA, dementia who is DNR/DNI from the [facility] presents for headache and right leg pain after fall out of bed prior to arrival. Patient states she was sleeping when she rolled on her side and fell out of bed onto the hard floor. She states she hit the back of her head but denies any LOC or vomiting. She is also complaining of right leg pain. She denies any blurry vision, neck pain, chest pain, shortness of breath, abdominal pain or back pain. She denies any dizziness, chest pain or palpitations prior to fall. She has not taken any medication for pain. Related Data Home Medications Medication Instructions Recorded Confirmed ferrous sulfate 325 mg PO DAILY 05/20/19 05/30/21 Albuterol-Ipatropium 3 ml INHALATION 4-6XD PRN #60 each 05/26/19 05/30/21 fluticasone 250 mcg-salmeterol 50 1 inh IH BID 10/02/19 05/30/21 mcg/dose blistr powdr for inhalation levothyroxine 75 mcg capsule 25 mcg PO DAILY 10/02/19 05/30/21 Oxygen #1 each 10/03/19 07/29/20 albuterol sulfate 90 mcg/actuation 2 puff IH Q6H PRN 10/03/19 05/30/21 aerosol inhaler Portable Oxygen System #1 ea 10/24/19 07/29/20 pen needle, diabetic 31 gauge x #200 each 10/24/19 07/29/2011/16 pen needle, diabetic 31 gauge x #300 each 10/24/19 07/29/2011/16 incentive spirometer #1 ea 01/02/20 07/29/20 pantoprazole 40 mg tablet,delayed 40 mg PO BID@0730,1999 #180 tab 03/23/20 05/30/21 release amlodipine 2.5 mg tablet 2.5 mg PO DAILY #90 tab 04/15/20 05/30/21 metoprolol succinate 25 mg 25 mg PO DAILY #90 tab 04/15/20 05/30/21 tablet,extended release 24 hr allopurinol 100 mg PO DAILY 04/18/20 05/30/21 insulin glargine 60 unit SUBCUT BID MDD 120 units 04/18/20 05/30/21 furosemide 40 mg PO DAILY 04/24/20 05/30/21 nitroglycerin 0.4 mg sublingual 0.4 mg SUBLINGUAL Q5M PRN #50 tab 04/26/20 05/30/21 tablet gabapentin 100 mg capsule 200 mg PO BID #180 cap 05/05/20 05/30/21 Tradjenta 5 mg PO DAILY 06/22/20 05/30/21 hydralazine 25 mg PO DAILY 06/22/20 05/30/21 Lantus Solostar U-100 Insulin 30 unit SUBCUT HS 07/29/20 05/30/21 acetaminophen [Tylenol] 650 mg PO Q6H PRN 07/29/20 05/30/21 cholecalciferol (vitamin D3) 50 mcg PO DAILY 07/29/20 05/30/21 [Vitamin D3] docusate sodium 100 mg PO DAILY 07/29/20 05/30/21 insulin aspart U-100 [Novolog See Rx Instructions .ROUTE .COMPLEX 07/29/20 05/30/21 U-100 Insulin aspart] trazodone 50 mg PO HS 07/29/20 05/30/21 buspirone 5 mg PO DAILY 05/30/21 05/30/21 isosorbide dinitrate 30 mg PO DAILY 05/30/21 05/30/21 paroxetine HCl [Paxil] 10 mg PO DAILY 05/30/21 05/30/21 Previous Rx's Medication Instructions Recorded Albuterol-Ipatropium 3 ml INHALATION 4-6XD PRN #60 each 05/26/19 Portable Oxygen System #1 ea 10/24/19 pen needle, diabetic 31 gauge x #200 each 10/24/1911/16 pen needle, diabetic 31 gauge x #300 each 10/24/1911/16 incentive spirometer #1 ea 01/02/20 pantoprazole 40 mg tablet,delayed 40 mg PO BID@0730,1999 #180 tab 03/23/20 release amlodipine 2.5 mg tablet 2.5 mg PO DAILY #90 tab 04/15/20 metoprolol succinate 25 mg 25 mg PO DAILY #90 tab 04/15/20 tablet,extended release 24 hr nitroglycerin 0.4 mg sublingual 0.4 mg SUBLINGUAL Q5M PRN #50 tab 04/26/20 tablet gabapentin 100 mg capsule 200 mg PO BID #180 cap 05/05/20 Allergies Allergy/AdvReac Type Severity Reaction Status Date / Time Morphine AdvReac Severe Agitation Uncoded 05/30/21 02:42 General Stated Complaint: GenMedical JOSH: 3 Review of Systems All systems reviewed & are unremarkable except as noted in HPI and below Constitutional Constitutional: Reports as per HPI, Denies chills, Denies fever(s) and Reports headache(s) Eyes Eyes: Denies blurry vision ENT Ears, Nose, Mouth, and Throat: Denies dizziness, Reports headache(s), Denies sore throat and Denies throat swelling Cardiovascular Cardiovascular: Denies chest pain and Denies dyspnea Respiratory Respiratory: Denies cough and Denies dyspnea Gastrointestinal Gastrointestinal: Denies abdominal pain, Denies diarrhea and Denies vomiting Genitourinary Genitourinary: Denies hematuria and Denies dysuria Musculoskeletal Musculoskeletal: Denies back pain and Denies numbness Comments: R leg pain Integumentary/Breasts Skin/Breast: Denies lesions and Denies rash Neurologic Neurologic: Denies dizziness, Reports headache(s), Denies localized weakness and Denies numbness Allergic/Immunologic Allergic/Immunologic: Denies throat swelling [facility] Medical History (Updated 05/30/21 @ 04:27 by Estrellita Vences DO) Anemia CAD (coronary artery disease) Carotid stenosis s/p bilateral CEA Chronic diastolic CHF (congestive heart failure) Chronic iron deficiency anemia Chronic low back pain CKD (chronic kidney disease) COPD (chronic obstructive pulmonary disease) Depression with anxiety Diabetes mellitus 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 mellitus Diverticulitis DNI (do not intubate) DNR (do not resuscitate) Eye irritation Cellulitis per [employer] (Doxy & Eryth/Polymix/Steroid) Functional tremor GERD (gastroesophageal reflux disease) Gout Right foot, swelling/red/tender [ ] trial Rx History of pulmonary embolism Hyperlipidemia Hypertension Hypothyroidism Iron deficiency Moderate obstructive sleep apnea (01/21/20) with significant nocturnal hypoxemia 02/03/20 Sleep Clinic - CPAP ordered, f/u 04/2020 Obesity (BMI 30.0-34.9) DANYELLE (obstructive sleep apnea) Palliative care patient Paroxysmal atrial fibrillation Peripheral vascular disease POLST (Physician Orders for Life-Sustaining Treatment) done with Terra Kebede [employer] on 11/21/19 DNR/DNI Renal mass Rheumatoid arthritis Stroke due to embolism TIA (transient ischemic attack) Vascular dementia Surgical History H/O cardiac catheterization [address] History of left-sided carotid endarterectomy History of right-sided carotid endarterectomy S/P arterial stent leg x2 S/P arteriovenous (AV) fistula creation [facility] in [place] Family History Sister Cancer Diabetes Brother Cancer Diabetes Mother , At age 61 Diabetes Father , in 60s, unknown cause No problems noted. Other Heart disease Social History Smoking/Tobacco Use Status: Former Tobacco Use Smoking risk assessment performed?: Yes Alcohol Intake: never Drug use: Never Substance use type: does not use Adopted: No Foster care: No Household members: children Housing: house Number of Children: 3 Do you need help understanding health information?: Always current occupation: Retired; attends [employer] during the day Sexually active: No Do you think of yourself as: straight/heterosexual Current gender identity: female Seatbelt use: always Do you feel safe at home: Yes Do you feel safe in your relationship?: Yes Additional Social history: residing at [facility] Exam Const General: cooperative and no acute distress HENMT Head: normal to inspection Face and sinus: normal facial exam Eyes General: appearance normal, both eyes and all related structures Pupils: PERRL EOM: EOM intact bilaterally Neck Neck: normal visual inspection and No submandibular swelling Lymphatic: no lymphadenopathy noted Chest Chest: normal inspection of the chest and no tenderness Resp Effort & Inspection: normal respiratory effort and able to speak in complete sentences Auscultation: clear to auscultation bilaterally Cardio Rate: regular rate Rhythm: regular rhythm GI Inspection: normal to inspection Palpation: soft, not firm, not rigid and nontender Auscultation: normal bowel sounds Back/Spine/Pelvis Cervical Spine: No cervical spinal tenderness Thoracic/Lumbar Spine: thoracic and lumbar spine normal to inspection, No thoracic spinal tenderness and No lumbar spinal tenderness Pelvis: no pain with anterior-posterior compression Skin General skin exam: no rashes or lesions noted Neuro General: patient alert, patient awake, patient oriented x3, moves all extremities, no meningeal signs and no focal motor deficits Cognition: normal cognition Speech: speech normal Motor: muscle tone normal throughout Sensory Exam: no sensory deficits noted Extrem General: normal to inspection, full ROM, capillary refill normal, no calf tenderness bilaterally and no edema Upper/lower leg/hip images: 1. 2 x 4 cm skin tears/superficial abrasion to the right distal posterior lateral leg. Bleeding controlled. No obvious foreign body. No bony deformity. Other: Pain in bilateral thighs with range of motion. Tenderness to palpation along right leg and right medial, anterior and lateral ankle. Normal range of motion bilateral upper extremities without pain or evidence of trauma. No bony injury or deformity noted to bilateral lower extremities. Bilateral distal pulses intact. Psych Appearance: grossly normal Mental Status: mental status grossly normal Speech and Movement: speech and movement normal Affect: normal affect Course Vital Signs Vital signs: Vital Signs Temperature 97.7 F 05/30/21 02:36 Pulse 78 05/30/21 02:36 Respiratory Rate 20 05/30/21 02:36 Blood Pressure 203/66 H 05/30/21 02:36 Pulse Oximetry 99 05/30/21 02:36 Temperature 97.7 F 05/30/21 02:36 Temperature Source Temporal Artery Scan 05/30/21 02:36 Pulse 78 05/30/21 02:36 Respiratory Rate 20 05/30/21 02:36 Blood Pressure 203/66 H 05/30/21 02:36 Blood Pressure Position Sitting 05/30/21 02:36 Pulse Oximetry 99 05/30/21 02:36 Oxygen Delivery Method Nasal Cannula 05/30/21 02:36 Oxygen Flow Rate 2 05/30/21 02:36 Pain Level 10 05/30/21 02:36
--- NOTE | 2021-05-30 02:49 | NUR.NOTE ---
Patient placed on bedpan. Tolerates movement with complaint. Nursing Note:
--- NOTE | 2021-05-30 03:00 | DI.RAD_ITS ---
Exam(s) XR PELVIS AP EXAM: XR PELVIS AP CLINICAL HISTORY: s/p fall, r/o fx. TECHNIQUE: 2D digital imaging was performed. COMPARISON: No exams were available for comparison FINDINGS: No evidence of pelvic nor acute hip fracture. Small calcification is noted adjacent to the greater t rochanter of the left hip consistent with calcific tendinitis-bursitis. Similar findings not seen ad jacent to the opposite-right hip. Sacroiliac joints appear unremarkable. IMPRESSION: DATA REPOSITORY: RADIATION DOSE DELIVERED:
--- NOTE | 2021-05-30 03:00 | DI.RAD_ITS ---
Exam(s) XR FEMUR RT EXAM: XR FEMUR RT CLINICAL HISTORY: s/p fall, r/o fx. TECHNIQUE: 2D digital imaging was performed. COMPARISON: No exams were available for comparison FINDINGS: No evidence of fracture nor osseous lesions. Minimal degenerative changes in the hips. Bone density normal. No osseous lesions. IMPRESSION: No fracture DATA REPOSITORY: RADIATION DOSE DELIVERED:
--- NOTE | 2021-05-30 03:00 | DI.RAD_ITS ---
Exam(s) XR FEMUR LT EXAM: XR FEMUR LT CLINICAL HISTORY: s/p fall, r/o fx. TECHNIQUE: 2D digital imaging was performed. COMPARISON: CR,XR XR FEMUR RT from 05/30/2021 FINDINGS: No evidence of acute fracture of the femur. No osseous lesions. There is a 7 x 3 millimeter calcifi c density adjacent to the lateral aspect of the greater trochanter, consistent with calcific tendinit is-bursitis. No other focal findings. IMPRESSION: DATA REPOSITORY: RADIATION DOSE DELIVERED:
--- NOTE | 2021-05-30 03:00 | DI.CT_ITS ---
Exam(s) CT HEAD CERVICAL SPINE WO EXAM: CT HEAD CERVICAL SPINE WO CLINICAL HISTORY: s/p fall, r/o acute intracranial inj/cerv fx. TECHNIQUE: Imaging Protocol: Axial computed tomography images with coronal and sagittal reformatted images were created and reviewed COMPARISON: CT CT HEAD CERVICAL SPINE WO from 05/05/2020 FINDINGS: BRAIN: There are no skull fractures nor fluid in the visualized paranasal sinuses. There is no evidence of intracranial hemorrhage, mass effect, or shift of midline structures. There are no extra-axial fluid collections. The ventricles are not enlarged or shifted and there is no blo od within the ventricular system nor within the basal cisterns. There is periventricular hypodensity consistent with chronic small vessel disease. There is also asy mmetric hypodensity in the left parietal lobe, unchanged from May 2020 most probably related to prior ischemic event. CERVICAL SPINE: There is no evidence of fracture nor listhesis. No significant prevertebral soft tissue swelling. Degenerative disc disease. Facet arthropathy. There is no significant facet joint malalignment. No significant osseous lesions evident. IMPRESSION: No acute intracranial findings on this noninfused CT scan of the brain.Old left parietal infarct agai n noted. No hemorrhage. No evidence of cervical spine fracture, malalignment, nor acute compromise of the cervical spinal can al. RADIATION DOSE DELIVERED: 1,897.34mGy.cm Total DLP DATA REPOSITORY: All CT scans at this facility are submitted to the National Radiology Data Registry (NRDR) Dose Index Registry (DIR) with the [employer] ([employer]). RADIATION OPTIMIZATION: All CT scans at this facility use at least one of these dose optimization te chniques: automated exposure control; mA and/or kV adjustment per patient size (includes targeted exa ms where dose is matched to clinical indication); or iterative reconstruction.
--- NOTE | 2021-05-30 03:00 | DI.RAD_ITS ---
Exam(s) XR TIB/FIB RT EXAM: XR TIB/FIB RT CLINICAL HISTORY: s/p fall, r/o fx. TECHNIQUE: 2D digital imaging was performed. COMPARISON: CR,XR XR FEMUR LT from 05/30/2021 FINDINGS: There is a fixation plate in the distal lateral fibula. No acute fractures. Bone density normal. N o osseous lesions. No radiographic evidence of osteomyelitis. IMPRESSION: DATA REPOSITORY: RADIATION DOSE DELIVERED:
--- NOTE | 2021-05-30 03:00 | DI.RAD_ITS ---
Exam(s) XR ANKLE RT COMPLETE EXAM: XR ANKLE RT COMPLETE CLINICAL HISTORY: s/p fall, r/o fx. TECHNIQUE: 2D digital imaging was performed. COMPARISON: CR XR ANKLE LT COMPLETE from 05/06/2020 FINDINGS: There is lateral fixation plate across a healed fracture site in the distal fibula. Also an independ ent screw at this level. There is no evidence of hardware loosening. No fracture or widening of the mortise. Talar dome unremarkable. No obvious degenerative changes in the ankle and subtalar joint. IMPRESSION: No significant acute findings. DATA REPOSITORY: RADIATION DOSE DELIVERED:
[2021-05-30] MEDS: Acetaminophen 500 MG TAB 1000 MG PO (03:13)
--- NOTE | 2021-05-30 03:17 | NUR.NOTE ---
To DI per cart with fire technician.Nursing Note:
--- NOTE | 2021-05-30 03:54 | NUR.NOTE ---
Patient returns from DI.Nursing Note:
--- NOTE | 2021-05-30 04:15 | DI.VRAD_ITS ---
PROCEDURE INFORMATION: Exam: CT Head Without Contrast Exam date and time: 05/30/2021 3:04 AM Age: 81 years old Clinical indication: Pain; Other: Fall TECHNIQUE: Imaging protocol: Computed tomography of the head without contrast. COMPARISON: CT HEAD CERVICAL SPINE WO 05/05/2020 1:24 AM FINDINGS: Mildly limited due to streak artifact Brain: Mild volume loss . Chronic left parietal infarctions No hemorrhage. Pkzp-[id number]-mimeckph white matter disease. No mass effect. Cerebral ventricles: No ventriculomegaly. Paranasal sinuses: Visualized sinuses are unremarkable. No fluid levels. Mastoid air cells: Visualized mastoid air cells are well aerated. Bones/joints: Unremarkable. No acute fracture. Soft tissues: Unremarkable. IMPRESSION: No acute intracranial hemorrhage PROCEDURE INFORMATION: Exam: CT Cervical Spine Without Contrast Exam date and time: 05/30/2021 3:04 AM Age: 81 years old Clinical indication: Pain; Other: Fall TECHNIQUE: Imaging protocol: Computed tomography images of the cervical spine without contrast. COMPARISON: CT HEAD CERVICAL SPINE WO 05/05/2020 1:24 AM FINDINGS: Bones/joints: No acute fracture. Loss of cervical lordosis is presumably on a degenerative basis. Discs/Spinal canal/Neural foramina: No significant spinal canal stenosis. No significant foraminal stenosis Soft tissues: Partially calcified right-sided thyroid nodule measuring 14 mm IMPRESSION: No acute cervical fracture Dictated and Authenticated by: Aron Miranda MD. Ordering:RADHA Haro MD
--- NOTE | 2021-05-30 04:15 | DI.VRAD_ITS ---
PROCEDURE INFORMATION: Exam: XR Right Femur Exam date and time: 05/30/2021 3:04 AM Age: 81 years old Clinical indication: Pain; Other: Fall TECHNIQUE: Imaging protocol: XR Right femur. Views: 2 views. COMPARISON: CR XR PELVIS AP 05/30/2021 3:24 AM FINDINGS: Bones/joints: Unremarkable. No acute fracture. Soft tissues: Unremarkable. IMPRESSION: No acute findings. Dictated and Authenticated by: Fernando Cazares MD. Ordering:RADHA Haro MD
--- NOTE | 2021-05-30 04:19 | DI.VRAD_ITS ---
PROCEDURE INFORMATION: Exam: XR Right Tibia and Fibula Exam date and time: 05/30/2021 3:04 AM Age: 81 years old Clinical indication: Other: Leg pain - fall TECHNIQUE: Imaging protocol: XR Right tibia and fibula. Views: 2 views. COMPARISON: CR XR ANKLE RT COMPLETE 05/30/2021 3:29 AM FINDINGS: Bones/joints: Patient status post distant prior distal fibular ORIF. No acute fracture or dislocation Soft tissues: Normal. IMPRESSION: No acute findings Dictated and Authenticated by: Fernando Cazares MD. Ordering:RADHA Haro MD
--- NOTE | 2021-05-30 04:21 | DI.VRAD_ITS ---
PROCEDURE INFORMATION: Exam: XR Pelvis Exam date and time: 05/30/2021 3:04 AM Age: 81 years old Clinical indication: Pain; Other: Fall TECHNIQUE: Imaging protocol: XR pelvis. Views: 1 or 2 view. COMPARISON: CT CHEST/ABD/PEL WO 05/05/2020 1:31 AM FINDINGS: Bones/joints: Unremarkable. No acute fracture. Soft tissues: Unremarkable. IMPRESSION: No acute findings. Dictated and Authenticated by: Fernando Cazares MD. Ordering:RADHA Haro MD
--- NOTE | 2021-05-30 04:22 | DI.VRAD_ITS ---
PROCEDURE INFORMATION: Exam: XR Right Ankle Exam date and time: 05/30/2021 3:04 AM Age: 81 years old Clinical indication: Pain; Ankle; Right; Prior surgery; Surgery date: 6+ months TECHNIQUE: Imaging protocol: XR Right ankle. Views: 3 or more views. COMPARISON: No relevant prior studies available. FINDINGS: Bones/joints: Patient status post distant prior fibular ORIF. No acute fracture or dislocation. Soft tissues: Normal. IMPRESSION: No acute findings Dictated and Authenticated by: Fernando Cazares MD. Ordering:RADHA Haro MD
--- NOTE | 2021-05-30 04:56 | NUR.NOTE ---
Report to KAREEM Ny at [facility]. Patient to be transported back via EMS.Nursing Note:
[2021-05-30] MEDS: traMADol 50 MG TAB PO (05:15)
--- NOTE | 2021-05-30 05:30 | NUR.NOTE ---
Skin tear to Right lower leg cleansed and dressed. Tolerated well.Nursing Note:
--- NOTE | 2021-05-30 05:31 | NUR.NOTE ---
[facility] en route for patient transport back to [facility] Note:
== END 2021-05-30 06:05 | disposition home or self-care (01) ==
PROVIDERS: Emergency Provider Physician Assistant; PCP Student in an Organized Health Care Education/Training Program
DX: S09.8XXA Other specified injuries of head, initial encounter (principal); S80.811A Abrasion, right lower leg, initial encounter; M79.604 Pain in right leg; M79.605 Pain in left leg; W06.XXXA Fall from bed, initial encounter
CPT/HCPCS: 73552; 99284; 70450; 72125; 72170; 73590; 73610

== ENCOUNTER 2021-06-03 13:00 | Outpatient (RCR) | payer MEDICARE, MEDICAID, SELFPAY ==
[2021-06-03 14:06] LABS: HCT 30.9 % (36.0-46.0); HGB 8.8 g/dL (11.2-15.7)
[2021-06-03 14:36] LABS: Ferritin 134 ng/mL (8-252)
[2021-06-03 14:37] LABS: Iron 54 ug/dL (50-170); Total Iron Binding Capacity 303 ug/dL (250-450); Transferrin Sat 18 % (15-50)
[2021-06-06 05:03] LABS: Vitamin D 25 Total 40.6 ng/mL (30-100)
[2021-06-06 09:55] LABS: Transferrin 235 mg/dL (201-352)
[2021-06-06 10:21] LABS: Hemoglobin A1C 8.5 % (<5.7)
== END 2021-07-03 23:59 | disposition home or self-care (01) ==
LOC: INF 13:00
PROVIDERS: PCP Student in an Organized Health Care Education/Training Program; Visit Provider Nurse Practitioner Acute Care
DX: E11.9 Type 2 diabetes mellitus without complications (principal); E03.9 Hypothyroidism, unspecified; N18.4 Chronic kidney disease, stage 4 (severe); E61.1 Iron deficiency; D63.1 Anemia in chronic kidney disease
CPT/HCPCS: 36415; 82306; 96372; 82728; 83036; 83540; 83550; 84466; 85014; 85018; J0881

== ENCOUNTER 2021-06-27 00:29 | Outpatient (CLI) | payer MEDICARE, MEDICAID, SELFPAY ==
--- NOTE | 2021-06-27 12:22 | DI.RAD_ITS ---
Exam(s) XR CHEST 2V PA LATERAL EXAM: XR CHEST 2V PA LATERAL CLINICAL HISTORY: EXAC OF COPD,PNEUMONIA. TECHNIQUE: 2D digital imaging was performed. COMPARISON: CR,XR XR PORTABLE CHEST AP from 11/01/2020 FINDINGS: Cardiomegaly again noted. There has been significant improvement in the bilateral infiltrates which were evident 11/01/2020. Also improved pleural effusions. There is presently platelike atelectasis or scarring in the mid lef t lung. Pulmonary venous hypertension pattern but no letty airspace pulmonary edema. There are no K erley B lines. IMPRESSION: Significant improvement when compared to 11/01/2020. DATA REPOSITORY: RADIATION DOSE DELIVERED:
== END 2021-06-27 00:49 ==
PROVIDERS: PCP Student in an Organized Health Care Education/Training Program; Visit Provider Nurse Practitioner Gerontology
DX: J44.9 Chronic obstructive pulmonary disease, unspecified (principal); J98.11 Atelectasis; I27.20 Pulmonary hypertension, unspecified
CPT/HCPCS: 71046

== ENCOUNTER 2021-07-29 00:48 | Outpatient (RCR) | payer MEDICARE, MEDICAID, SELFPAY ==
[2021-07-08 13:45] LABS: Absolute Basophil Count 0.08 10^3/uL (0.0-0.2); Absolute Eosinophil Count 0.19 10^3/uL (0.0-0.7); Absolute Lymphocyte Count 1.79 10^3/uL (1.2-3.4); Absolute Monocyte Count 0.84 10^3/uL (0.1-0.8); Absolute Neutrophil Count 10.84 10^3/uL (1.2-6.7); Basophils % 0.6; Eosinophils % 1.4; Immature Grans % 0.7; Lymphocytes % 12.9; MCH 23.1 pg (27.0-33.0); MCHC 28.1 % (32.0-36.0); MCV 82.1 fL (80-95); MPV 10.5 fL (8.0-11.0); Monocytes % 6.1; Neutrophils % 78.3; Nucleated RBC 0 %; Platelet Count 296 10^3/uL (130-400); RBC 3.68 10^6/uL (3.93-5.22); RDW 16.6 % (11.7-14.6); RDW-SD 50.5 fL; WBC 13.84 10^3/uL (4.4-10.8)
[2021-07-08 13:46] LABS: HCT 30.2 % (36.0-46.0); HGB 8.5 g/dL (11.2-15.7)
[2021-07-08 14:10] LABS: Ferritin 164 ng/mL (8-252); TSH (W/Ref FT4) 2.21 uIU/mL (0.36-3.74)
[2021-07-08 14:15] LABS: Iron 33 ug/dL (50-170); Total Iron Binding Capacity 252 ug/dL (250-450); Transferrin Sat 13 % (15-50)
[2021-07-08 15:15] LABS: Hemoglobin A1C 9.2 % (<5.7)
[2021-07-11 10:32] LABS: Transferrin 205 mg/dL (201-352)
[2021-07-15] MEDS: IRON SUCROSE COMPLEX 300 MG in Normal Saline 250 ML 176.667 MG IVPB (11:16)
[2021-07-15] MEDS: Normal Saline Flush 10 ML SYR IVP (11:19)
[2021-07-22] MEDS: IRON SUCROSE COMPLEX 300 MG in Normal Saline 250 ML 176.667 MG IVPB (11:19)
[2021-07-22] MEDS: Normal Saline Flush 10 ML SYR IVP (11:20)
[2021-07-29] MEDS: IRON SUCROSE COMPLEX 300 MG in Normal Saline 250 ML 176.667 MG IVPB (11:15)
[2021-07-29] MEDS: Normal Saline Flush 10 ML SYR IVP (11:30)
== END 2021-08-02 23:59 | disposition home or self-care (01) ==
LOC: INF 00:48
PROVIDERS: Internal Medicine; PCP Student in an Organized Health Care Education/Training Program; Visit Provider Nurse Practitioner Acute Care
DX: E03.9 Hypothyroidism, unspecified (principal); D62 Acute posthemorrhagic anemia; K92.2 Gastrointestinal hemorrhage, unspecified; E61.1 Iron deficiency; N18.4 Chronic kidney disease, stage 4 (severe); D63.1 Anemia in chronic kidney disease; E11.42 Type 2 diabetes mellitus with diabetic polyneuropathy
CPT/HCPCS: 36415; 96365; 96366; 96372; 82728; 83036; 83540; 83550; 84443; 84466; 85014; 85018; 85025; J0881; J1756

== ENCOUNTER 2021-09-01 02:47 | Outpatient (RCR) | payer MEDICARE, MEDICAID, SELFPAY ==
--- OUTSIDE RECORDS SUMMARY | 2021-08-05 01:55 | XMS_ITS ---
:1940 Author Care Team Providers Name Role Phone DULCE RODRÍGUEZ Primary Care Provider [phone] Allergies Code Code System Name Reaction Severity Status Onset 7052 RxNorm Morphine Hallucinations Moderate to Active ? Severe Medications Name Status Start Date Stop Date ? ? 1st Medx-Patch With Lidocaine 4 %-20 %-0.025 %-5 % topical Activ e ? Not available 1 PRN for up to 12 hrs acetaminophen Completed ? 02/03/2020 325 mg 2 tabets acetaminophen 325 mg capsule Active ? Not available Take 1 capsule 4 times a day by oral route as needed. albuterol sulfate 90 mcg/actuation breath activated powder inhal er Active ? Not available Inhale 2 puffs every 4 hours by inhalation route as needed. amlodipine 2.5 mg tablet Active ? Not naomy ilable Take 1 tablet every day by oral route. apixaban 2.5 mg tablet Active ? Not avail able Take 1 tablet twice a day by oral route. atorvastatin 40 mg tablet Active ? Not av ailable Take 1 tablet every day by oral route. buspirone 7.5 mg tablet Active ? Not avai lable Take 1 tablet every day by oral route. dicyclomine 20 mg tablet Active ? Not naomy ilable Take 1 tablet every day by oral route as needed. erythromycin 5 mg/gram (0.5 %) eye ointment Active ? Not available APPLY 1 CM RIBBON INTO THE LOWER CONJUN CTIVAL SAC(S) IN THE AFFECTED EYE(S) BY OPHTHALMIC ROUTE 3 TIMES PER DAY furosemide 40 mg tablet Active ? Not avai lable Take 1 tablet every day by oral route. gabapentin 100 mg capsule Active ? Not av ailable Take 2 capsules twice a day by oral route. hydralazine 25 mg tablet Active ? Not naomy ilable Take 1 tablet 3 times a day by oral route. insulin glargine (U-100) 100 unit/mL subcutaneous solution Activ e ? Not available Inject 120 units every day by subcutaneous route. isosorbide dinitrate 30 mg tablet Active ? Not available Take 1 tablet twice a day by oral route. levothyroxine 75 mcg tablet Active ? Not available Take 1 tablet every day by oral route. melatonin 3 mg capsule Active ? Not avail able Take 1 capsule every day by oral route at bedtime. metoprolol succinate ER 25 mg capsule sprinkle, ext. release 24 hr Active ? Not available Take 1 capsule every day by oral route. Nitrostat 0.4 mg sublingual tablet Active ? Not available Place 1 tablet by sublingual route as needed. paroxetine 20 mg tablet Active ? Not avai lable Take 1 tablet every day by oral route. sucralfate 1 gram tablet Active ? Not naomy ilable Take 1 tablet 4 times a day by oral route. trazodone 50 mg tablet Active ? Not avail able Take 1 tablet every day by oral route at bedtime. Problems Name Status Onset Date Source ? Peripheral Nerve Disease Active 10/02/2019 ? Cerebrovascular Accident Active 10/02/2019 ? Fatigue Active 10/02/2019 ? Tremor Active 10/02/2019 ? Contracture of Joint of Left Hand Active 10/02/2019 ? Diabetes Mellitus Active 10/06/2019 ? Hyperlipidemia Active 10/06/2019 ? Anxiety Active 10/06/2019 ? Depressive Disorder Active 10/06/2019 ? 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 Coronary Arteriosclerosis Active 10/06/2019 ? Pulmonary Embolism Active 10/06/2019 ? Atrial Fibrillation Active 10/06/2019 ? Kidney Disease Active 10/06/2019 ? Arthritis Active 10/06/2019 ? Insomnia Active 01/06/2020 ? Excessive Daytime Sleepiness - Normal Night Active 01/2020 ? 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 Obstructive Sleep Apnea Syndrome Active ? ? Hypertensive Disorder Active ? ? Chronic Obstructive Lung Disease Active ? ? Procedures None recorded. Results Lab Results None recorded. Past Encounters 04/08/2020 Obstructive Sleep Apnea Syndrome; Period ic Leg Movements of Sleep [place] CORONER: [address] [place] [phone], Ph. Social History Tobacco Smoking Status Former Smoker (1/4 pack per day) No eren: QUIT 2000 Vaccine List None recorded. Plan of Care Reminders Provider Appointments None ? ? recorded. Lab None ? ? recorded. Referral None ? ? recorded. Procedures None ? ? recorded. Surgeries None ? ? recorded. Imaging None ? ? recorded. Vitals 04/08/2020 12:30PM Office 30 Height Weight BMI Blood Pressure 157.48 cm 82.37 kg 33.2 kg/m2 144/50 mm[Hg] 02/03/2020 11:30AM Office 30 Height Weight BMI Blood Pressure 157.48 cm 84.5 kg 34.1 kg/m2 136/72 mm[Hg] 01/06/2020 09:30AM New Patient 45 Height Weight BMI 157.48 cm 81.65 kg 32.9 kg/m2
[2021-08-05 13:21] LABS: HCT 35.2 % (36.0-46.0); HGB 10.2 g/dL (11.2-15.7)
[2021-09-01 13:24] LABS: HCT 38.2 % (36.0-46.0); HGB 11.1 g/dL (11.2-15.7)
[2021-09-01] MEDS: Darbepoetin 40 MCG SYR SC (13:59)
== END 2021-09-02 23:59 | disposition home or self-care (01) ==
LOC: INF 02:47
PROVIDERS: Internal Medicine; Internal Medicine Nephrology; PCP Student in an Organized Health Care Education/Training Program; Visit Provider Nurse Practitioner Acute Care
DX: E11.40 Type 2 diabetes mellitus with diabetic neuropathy, unspecified (principal); E61.1 Iron deficiency; D62 Acute posthemorrhagic anemia; E03.9 Hypothyroidism, unspecified; E78.5 Hyperlipidemia, unspecified; N18.4 Chronic kidney disease, stage 4 (severe); D63.1 Anemia in chronic kidney disease
CPT/HCPCS: 36415; 96372; 83036; 85014; 85018; J0881

== ENCOUNTER 2021-09-30 13:00 | Outpatient (RCR) | payer MEDICARE, MEDICAID, SELFPAY ==
[2021-09-30 13:28] LABS: Abs Immature Grans 0.15 10^3/uL (0.0-0.06); Absolute Basophil Count 0.12 10^3/uL (0.0-0.2); Absolute Eosinophil Count 0.43 10^3/uL (0.0-0.7); Absolute Monocyte Count 0.68 10^3/uL (0.1-0.8); Absolute Neutrophil Count 8.52 10^3/uL (1.2-6.7); Eosinophils % 3.6; HCT 35.5 % (36.0-46.0); HGB 10.6 g/dL (11.2-15.7); Immature Grans % 1.3; Lymphocytes % 16.8; MCH 24.9 pg (27.0-33.0); MCHC 29.9 % (32.0-36.0); MCV 83.3 fL (80-95); MPV 10.3 fL (8.0-11.0); Monocytes % 5.7; Neutrophils % 71.6; Nucleated RBC 0 %; Platelet Count 303 10^3/uL (130-400); RBC 4.26 10^6/uL (3.93-5.22); RDW-SD 51.8 fL
[2021-09-30] MEDS: Darbepoetin 40 MCG SYR SC (13:42)
[2021-09-30 13:54] LABS: Hemoglobin A1C 7.4 % (<5.7)
[2021-09-30 13:57] LABS: ALT 19 U/L (14-59); AST 20 U/L (15-37); Albumin 3.3 g/dL (3.4-5.0); Alkaline Phosphatase 81 U/L (46-116); Anion Gap 6.8 mmol/L (3-11); BUN 28 mg/dL (7-18); Bilirubin, Total 0.3 mg/dL (0.2-1.0); CO2 31.2 mmol/L (21.0-32.0); CREATININE 2.1 mg/dL (0.55-1.02); Calcium 8.7 mg/dL (8.5-10.1); Chloride 100 mmol/L (98-107); Estimated GFR 22.72 (mL/min/1.73m2); Glucose 161 mg/dL (74-106); Potassium 3.9 mmol/L (3.5-5.1); Sodium 138 mmol/L (136-145); TSH (W/Ref FT4) 2.81 uIU/mL (0.36-3.74); Total Protein 7.9 g/dL (6.4-8.2)
[2021-09-30 15:04] LABS: Vitamin B12 432 pg/mL (193-986)
[2021-09-30 15:24] LABS: Iron 47 ug/dL (50-170); Total Iron Binding Capacity 240 ug/dL (250-450); Transferrin Sat 20 % (15-50)
[2021-10-03 01:34] LABS: Vitamin D 25 Total 44.5 ng/mL (30-100)
== END 2021-10-03 23:59 | disposition home or self-care (01) ==
LOC: INF 13:00
PROVIDERS: PCP Student in an Organized Health Care Education/Training Program; Visit Provider Nurse Practitioner Acute Care
DX: D62 Acute posthemorrhagic anemia (principal)
CPT/HCPCS: 36415; 80053; 82306; 96372; 82607; 83036; 83540; 83550; 84443; 85025; J0881

== ENCOUNTER 2021-10-25 16:15 | Outpatient (REF) | payer MEDICARE, MEDICAID, SELFPAY ==
[2021-10-25 18:03] LABS: Bilirubin Negative (Negative); Blood Negative (Negative); Clarity Sl Cloudy (Clear); Glucose Negative (Negative); Ketones Negative (Negative); Leukocyte Esterase Small (Negative); Nitrite Negative (Negative); Specific Gravity 1.015 (1.005-1.025); Urobilinogen 0.2 EU/dL (Up TO 0.2)
[2021-10-25 18:18] LABS: RBC Negative HPF (0-2); WBC 20-50 HPF (0-5)
[2021-10-25 18:19] LABS: Bacteria Rare HPF (Negative); C & S Indicated? No; Crystals Negative HPF (Negative); Epithelial Cells Many HPF (Negative)
[2021-10-25 18:22] LABS: ALT 22 U/L (14-59); AST 23 U/L (15-37); Albumin 3.5 g/dL (3.4-5.0); Alkaline Phosphatase 89 U/L (46-116); Anion Gap 13.8 mmol/L (3-11); BUN 35 mg/dL (7-18); Bilirubin, Total 0.4 mg/dL (0.2-1.0); CO2 27.2 mmol/L (21.0-32.0); CREATININE 2.2 mg/dL (0.55-1.02); Calcium 9.2 mg/dL (8.5-10.1); Chloride 103 mmol/L (98-107); Estimated GFR 21.53 (mL/min/1.73m2); Glucose 127 mg/dL (74-106); Potassium 4.7 mmol/L (3.5-5.1); Sodium 144 mmol/L (136-145); Total Protein 7.5 g/dL (6.4-8.2)
== END 2021-10-25 16:16 | disposition home or self-care (01) ==
LOC: LBN 16:15
PROVIDERS: PCP Student in an Organized Health Care Education/Training Program; Visit Provider Nurse Practitioner Gerontology
DX: N39.0 Urinary tract infection, site not specified (principal); E11.9 Type 2 diabetes mellitus without complications; F03.90 Unspecified dementia, unspecified severity, without behavioral disturbance, psychotic disturbance, mood disturbance, and anxiety
CPT/HCPCS: 80053; 81003; 81015; 85025; 87086

== ENCOUNTER 2021-10-26 17:08 | Outpatient (REF) | payer MEDICARE, MEDICAID, SELFPAY ==
[2021-10-26 19:40] LABS: ALT 22 U/L (14-59); AST 21 U/L (15-37); Albumin 3.5 g/dL (3.4-5.0); Alkaline Phosphatase 84 U/L (46-116); Anion Gap 7.4 mmol/L (3-11); BUN 41 mg/dL (7-18); Bilirubin, Total 0.2 mg/dL (0.2-1.0); CO2 31.6 mmol/L (21.0-32.0); CREATININE 2.1 mg/dL (0.55-1.02); Calcium 9.6 mg/dL (8.5-10.1); Chloride 102 mmol/L (98-107); Estimated GFR 22.72 (mL/min/1.73m2); Glucose 213 mg/dL (74-106); Potassium 5.1 mmol/L (3.5-5.1); Sodium 141 mmol/L (136-145); Total Protein 7.4 g/dL (6.4-8.2)
== END 2021-10-26 17:09 | disposition home or self-care (01) ==
LOC: LBN 17:08
PROVIDERS: PCP Student in an Organized Health Care Education/Training Program; Visit Provider Nurse Practitioner Gerontology
DX: E11.40 Type 2 diabetes mellitus with diabetic neuropathy, unspecified (principal); I50.32 Chronic diastolic (congestive) heart failure; D50.9 Iron deficiency anemia, unspecified; N18.4 Chronic kidney disease, stage 4 (severe)
CPT/HCPCS: 80053

== ENCOUNTER 2021-10-28 03:25 | Outpatient (RCR) | payer MEDICARE, MEDICAID, SELFPAY ==
[2021-10-28 13:07] LABS: HCT 37.1 % (36.0-46.0); HGB 10.9 g/dL (11.2-15.7)
[2021-10-28] MEDS: Darbepoetin 40 MCG SYR SC (13:21)
[2021-10-28 13:23] LABS: Ferritin 378 ng/mL (8-252)
== END 2021-10-31 23:59 | disposition home or self-care (01) ==
LOC: INF 03:25
PROVIDERS: PCP Student in an Organized Health Care Education/Training Program; Visit Provider Nurse Practitioner Acute Care
DX: N18.4 Chronic kidney disease, stage 4 (severe) (principal); D63.1 Anemia in chronic kidney disease
CPT/HCPCS: 36415; 96372; 82728; 85014; 85018; J0881

== ENCOUNTER 2021-11-25 03:06 | Outpatient (RCR) | payer MEDICARE, MEDICAID, SELFPAY ==
[2021-11-25 13:20] LABS: HCT 32.4 % (36.0-46.0); HGB 9.8 g/dL (11.2-15.7)
[2021-11-25] MEDS: Darbepoetin 40 MCG SYR SC (13:28)
== END 2021-12-01 23:59 | disposition home or self-care (01) ==
LOC: INF 03:06
PROVIDERS: Internal Medicine Nephrology; PCP Student in an Organized Health Care Education/Training Program; Visit Provider Nurse Practitioner Acute Care
DX: N18.4 Chronic kidney disease, stage 4 (severe) (principal); D63.1 Anemia in chronic kidney disease
CPT/HCPCS: 36415; 96372; 85014; 85018; J0881

== ENCOUNTER 2021-12-23 00:51 | Outpatient (RCR) | payer MEDICARE, MEDICAID, SELFPAY ==
[2021-12-23 13:46] LABS: Abs Immature Grans 0.11 10^3/uL (0.0-0.06); Absolute Basophil Count 0.12 10^3/uL (0.0-0.2); Eosinophils % 2.5; HCT 35.9 % (36.0-46.0); Immature Grans % 0.9; Lymphocytes % 16.5; MCHC 29.8 % (32.0-36.0); MCV 87.3 fL (80-95); MPV 10.6 fL (8.0-11.0); Monocytes % 5.8; Neutrophils % 73.3; Platelet Count 303 10^3/uL (130-400); RBC 4.11 10^6/uL (3.93-5.22); RDW 15.6 % (11.7-14.6); RDW-SD 49.7 fL; WBC 12.14 10^3/uL (4.4-10.8)
[2021-12-23 13:47] LABS: HGB 10.7 g/dL (11.2-15.7)
[2021-12-23] MEDS: Darbepoetin 40 MCG SYR SC (14:00)
[2021-12-23 14:01] LABS: Albumin 3.5 g/dL (3.4-5.0); Anion Gap 3.6 mmol/L (3-11); BUN 46 mg/dL (7-18); CO2 34.4 mmol/L (21.0-32.0); CREATININE 2.2 mg/dL (0.55-1.02); Calcium 9.4 mg/dL (8.5-10.1); Chloride 98 mmol/L (98-107); Estimated GFR 21.53 (mL/min/1.73m2); Glucose 356 mg/dL (74-106); Iron 43 ug/dL (50-170); PHOSPHORUS 4.2 mg/dL (2.6-4.7); Potassium 4.9 mmol/L (3.5-5.1); Sodium 136 mmol/L (136-145); Total Iron Binding Capacity 342 ug/dL (250-450); Uric Acid 7.3 mg/dL (2.6-6.0)
[2021-12-23 14:27] LABS: Ferritin 186 ng/mL (8-252)
[2021-12-23 14:53] LABS: PROTEIN 36.3 mg/dL; Prot/Crea Ur Ratio 0.43
[2021-12-26 10:02] LABS: Parathyroid Hormone,Intact 41 pg/mL (19-88)
== END 2021-12-31 23:59 | disposition home or self-care (01) ==
LOC: INF 00:51
PROVIDERS: Internal Medicine Nephrology; PCP Student in an Organized Health Care Education/Training Program; Visit Provider Nurse Practitioner Acute Care
DX: N18.4 Chronic kidney disease, stage 4 (severe) (principal); D63.1 Anemia in chronic kidney disease; E11.40 Type 2 diabetes mellitus with diabetic neuropathy, unspecified; E61.1 Iron deficiency; E03.9 Hypothyroidism, unspecified; E78.5 Hyperlipidemia, unspecified
CPT/HCPCS: 36415; 80048; 96372; 82040; 82565; 82728; 83540; 83550; 83970; 84100; 84156; 84550; 85025; J0881

== ENCOUNTER 2022-01-20 01:54 | Outpatient (RCR) | payer MEDICARE, MEDICAID, SELFPAY ==
[2022-01-20 13:18] LABS: HCT 33.1 % (36.0-46.0); HGB 9.7 g/dL (11.2-15.7)
[2022-01-20] MEDS: Darbepoetin 40 MCG SYR SC (13:40)
== END 2022-01-31 23:59 | disposition home or self-care (01) ==
LOC: INF 01:54
PROVIDERS: Family Medicine; PCP Student in an Organized Health Care Education/Training Program; Visit Provider Nurse Practitioner Acute Care
DX: N18.4 Chronic kidney disease, stage 4 (severe) (principal)
CPT/HCPCS: 36415; 96372; 85014; 85018; J0881

== ENCOUNTER 2022-02-23 03:02 | Outpatient (RCR) | payer MEDICARE, MEDICAID, SELFPAY ==
[2022-02-23 13:35] LABS: HCT 29.3 % (36.0-46.0); HGB 8.6 g/dL (11.2-15.7)
== END 2022-03-02 23:59 | disposition home or self-care (01) ==
LOC: INF 03:02
PROVIDERS: PCP Student in an Organized Health Care Education/Training Program; Visit Provider Nurse Practitioner Acute Care
DX: N18.4 Chronic kidney disease, stage 4 (severe) (principal); D63.1 Anemia in chronic kidney disease
CPT/HCPCS: 36415; 96372; 85014; 85018; J0881

== ENCOUNTER 2022-02-28 18:00 | Outpatient (REF) | payer MEDICARE, MEDICAID, SELFPAY ==
[2022-02-28 18:14] LABS: Absolute Basophil Count 0.11 10^3/uL (0.0-0.2); Absolute Eosinophil Count 0.41 10^3/uL (0.0-0.7); Absolute Lymphocyte Count 1.94 10^3/uL (1.2-3.4); Absolute Monocyte Count 0.79 10^3/uL (0.1-0.8); Basophils % 0.7; Eosinophils % 2.6; HCT 29.8 % (36.0-46.0); HGB 8.5 g/dL (11.2-15.7); Immature Grans % 1.3; Lymphocytes % 12.2; MCH 24.4 pg (27.0-33.0); MCHC 28.5 % (32.0-36.0); MCV 85 fL (80-95); MPV 11.3 fL (8.0-11.0); Neutrophils % 78.2; Nucleated RBC 0.1 % (0.0-0.3); Platelet Count 331 10^3/uL (130-400); RBC 3.49 10^6/uL (3.93-5.22); RDW 16.2 % (11.7-14.6); RDW-SD 49.3 fL; WBC 15.88 10^3/uL (4.4-10.8)
[2022-02-28 18:15] LABS: Absolute Neutrophil Count 12.42 10^3/uL (1.2-6.7)
[2022-02-28 18:26] LABS: Hemoglobin A1C 8.6 % (<5.7)
[2022-02-28 18:32] LABS: ALT 22 U/L (14-59); AST 16 U/L (15-37); Albumin 3.4 g/dL (3.4-5.0); Alkaline Phosphatase 85 U/L (46-116); Anion Gap 8.3 mmol/L (3-11); BUN 38 mg/dL (7-18); Bilirubin, Total 0.3 mg/dL (0.2-1.0); CO2 29.7 mmol/L (21.0-32.0); CREATININE 2.3 mg/dL (0.55-1.02); Chloride 100 mmol/L (98-107); Estimated GFR 20.45 (mL/min/1.73m2); Glucose 246 mg/dL (74-106); NT-proBNP 1298 pg/mL (<300); Potassium 5.3 mmol/L (3.5-5.1); Sodium 138 mmol/L (136-145); TSH (W/Ref FT4) 2.39 uIU/mL (0.36-3.74); Total Protein 7.1 g/dL (6.4-8.2)
== END 2022-02-28 18:01 | disposition home or self-care (01) ==
LOC: LBN 18:00
PROVIDERS: PCP Student in an Organized Health Care Education/Training Program; Visit Provider Nurse Practitioner Gerontology
DX: R68.89 Other general symptoms and signs (principal)
CPT/HCPCS: 80053; 83036; 83880; 84443; 85025

== ENCOUNTER → 2022-03-02 01:35 | Outpatient (CLI) | payer MEDICARE, MEDICAID, SELFPAY ==
--- NOTE | 2022-03-02 11:24 | DI.RAD_ITS ---
Exam(s) XR CHEST 2V PA LATERAL EXAM: XR CHEST 2V PA LATERAL CLINICAL HISTORY: ? PNEUMONIA, DIMINISHED BREATH SOUNDS, LLL, CHF TECHNIQUE: 2D digital imaging was performed of the chest. Three images were obtained. PA and later al views were obtained. COMPARISON: CR XR CHEST 2V PA LATERAL from 06/27/2021 FINDINGS: MEDIASTINUM: Normal. HEART: Normal. PULMONARY VASCULATURE: Normal. LUNGS: There is unchanged scarring in the left lung. No focal consolidating infiltrates are seen. PLEURAL SPACE: There is a small left pleural effusion. No right pleural effusion. No pneumothorax. BONE:Within normal limits for the patient's age. OTHER FINDINGS:Normal. IMPRESSION: 1. No focal consolidating infiltrates. 2. Small left pleural effusion. DATA REPOSITORY: RADIATION DOSE DELIVERED:
== END ==
PROVIDERS: PCP Student in an Organized Health Care Education/Training Program; Visit Provider Nurse Practitioner Gerontology
DX: J90 Pleural effusion, not elsewhere classified (principal)
CPT/HCPCS: 71046

== ENCOUNTER 2022-03-03 16:01 | Outpatient (REF) | payer MEDICARE, MEDICAID, SELFPAY ==
[2022-03-03 16:38] LABS: Bilirubin Negative (Negative); Blood Negative (Negative); Clarity Cloudy (Clear); Glucose Negative (Negative); Ketones Negative (Negative); Leukocyte Esterase Large (Negative); Nitrite Negative (Negative); Urobilinogen 0.2 EU/dL (Up TO 0.2)
[2022-03-03 17:08] LABS: Bacteria Many HPF (Negative); C & S Indicated? No/Sq. Contamination; Casts Negative LPF (Negative); Crystals Negative HPF (Negative); Epithelial Cells Many HPF (Negative); Mucus Negative (Negative); RBC 0-2 HPF (0-2); WBC >50 HPF (0-5)
== END 2022-03-03 16:02 | disposition home or self-care (01) ==
LOC: LBN 16:01
PROVIDERS: PCP Student in an Organized Health Care Education/Training Program; Visit Provider Nurse Practitioner Gerontology
DX: R53.83 Other fatigue (principal); R68.89 Other general symptoms and signs; M62.81 Muscle weakness (generalized); R39.89 Other symptoms and signs involving the genitourinary system
CPT/HCPCS: 81003; 81015; 87086

== ENCOUNTER 2022-03-07 16:25 | Outpatient (REF) | payer MEDICARE, MEDICAID, SELFPAY ==
[2022-03-07 18:54] LABS: Bilirubin Negative (Negative); Blood Negative (Negative); Clarity Clear (Clear); Glucose Negative (Negative); Ketones Negative (Negative); Leukocyte Esterase Negative (Negative); Nitrite Negative (Negative); Urobilinogen 0.2 EU/dL (Up TO 0.2); pH 5.5 (5-8)
[2022-03-07 19:22] LABS: Bacteria Negative HPF (Negative); C & S Indicated? C&S Done As Ordered; Crystals Negative HPF (Negative); Epithelial Cells Negative HPF (Negative); Mucus Negative (Negative); Other Cells Few Transitional (Negative); RBC 0-2 HPF (0-2); WBC 0-2 HPF (0-5)
== END 2022-03-07 16:26 | disposition home or self-care (01) ==
LOC: LBN 16:25
PROVIDERS: PCP Student in an Organized Health Care Education/Training Program; Visit Provider Nurse Practitioner Gerontology
DX: R53.83 Other fatigue (principal); R68.89 Other general symptoms and signs; R82.998 Other abnormal findings in urine
CPT/HCPCS: 81003; 81015; 87086

== ENCOUNTER 2022-03-08 18:11 | Outpatient (REF) | payer MEDICARE, MEDICAID, SELFPAY ==
[2022-03-08 13:35] LABS: Abs Immature Grans 0.06 10^3/uL (0.0-0.06); Absolute Basophil Count 0.11 10^3/uL (0.0-0.2); Absolute Eosinophil Count 0.35 10^3/uL (0.0-0.7); Absolute Monocyte Count 0.74 10^3/uL (0.1-0.8); Absolute Neutrophil Count 9.41 10^3/uL (1.2-6.7); Basophils % 0.9; Eosinophils % 2.8; HCT 29.2 % (36.0-46.0); HGB 8.5 g/dL (11.2-15.7); Immature Grans % 0.5; Lymphocytes % 14.8; MCH 24.1 pg (27.0-33.0); MCHC 29.1 % (32.0-36.0); MCV 83 fL (80-95); Monocytes % 5.9; Neutrophils % 75.1; Platelet Count 335 10^3/uL (130-400); RBC 3.53 10^6/uL (3.93-5.22); RDW-SD 48.1 fL; WBC 12.53 10^3/uL (4.4-10.8)
[2022-03-08 13:37] LABS: Iron 32 ug/dL (50-170); Total Iron Binding Capacity 304 ug/dL (250-450); Transferrin Sat 11 % (15-50)
[2022-03-08 13:39] LABS: Absolute Lymphocyte Count 1.85 10^3/uL (1.2-3.4)
[2022-03-08 13:47] LABS: ALT 16 U/L (14-59); AST 11 U/L (15-37); Albumin 3.3 g/dL (3.4-5.0); Alkaline Phosphatase 91 U/L (46-116); Anion Gap 4.5 mmol/L (3-11); BUN 45 mg/dL (7-18); Bilirubin, Total 0.3 mg/dL (0.2-1.0); CO2 34.5 mmol/L (21.0-32.0); CREATININE 2.3 mg/dL (0.55-1.02); Calcium 8.9 mg/dL (8.5-10.1); Chloride 100 mmol/L (98-107); Estimated GFR 20.45 (mL/min/1.73m2); Glucose 229 mg/dL (74-106); NT-proBNP 669 pg/mL (<300); Potassium 4.8 mmol/L (3.5-5.1); Sodium 139 mmol/L (136-145); Total Protein 7.2 g/dL (6.4-8.2)
[2022-03-09 12:51] LABS: Estimated Average Glucose 194 mg/dL; Hemoglobin A1C 8.4 % (<5.7)
== END 2022-03-08 18:12 | disposition home or self-care (01) ==
LOC: LBN 18:11
PROVIDERS: PCP Student in an Organized Health Care Education/Training Program; Visit Provider Nurse Practitioner Gerontology
DX: N18.4 Chronic kidney disease, stage 4 (severe) (principal); E11.40 Type 2 diabetes mellitus with diabetic neuropathy, unspecified; I50.32 Chronic diastolic (congestive) heart failure; I48.0 Paroxysmal atrial fibrillation; I10 Essential (primary) hypertension; R06.02 Shortness of breath
CPT/HCPCS: 80053; 83036; 83540; 83550; 83880; 85025

== ENCOUNTER 2022-03-13 15:57 | Outpatient (REF) | payer MEDICARE, MEDICAID, SELFPAY ==
[2022-03-13 17:04] LABS: Abs Immature Grans 0.07 10^3/uL (0.0-0.06); Absolute Monocyte Count 0.71 10^3/uL (0.1-0.8); Basophils % 0.8; Eosinophils % 2.4; HCT 27.3 % (36.0-46.0); HGB 7.9 g/dL (11.2-15.7); Immature Grans % 0.6; MCH 23.7 pg (27.0-33.0); MCHC 28.9 % (32.0-36.0); MCV 82 fL (80-95); MPV 10.7 fL (8.0-11.0); Neutrophils % 74.2; Platelet Count 333 10^3/uL (130-400); RBC 3.34 10^6/uL (3.93-5.22); RDW 16.1 % (11.7-14.6)
[2022-03-13 17:06] LABS: Absolute Eosinophil Count 0.29 10^3/uL (0.0-0.7); Absolute Neutrophil Count 8.83 10^3/uL (1.2-6.7)
[2022-03-13 17:10] LABS: Anion Gap 9.1 mmol/L (3-11); BUN 45 mg/dL (7-18); CO2 35.9 mmol/L (21.0-32.0); CREATININE 2.5 mg/dL (0.55-1.02); Calcium 8.8 mg/dL (8.5-10.1); Chloride 99 mmol/L (98-107); Estimated GFR 18.58 (mL/min/1.73m2); Glucose 137 mg/dL (74-106); Potassium 4.5 mmol/L (3.5-5.1); Sodium 144 mmol/L (136-145)
[2022-03-13 17:13] LABS: Iron 33 ug/dL (50-170)
[2022-03-13 17:21] LABS: Hemoglobin A1C 8.6 % (<5.7)
[2022-03-13 17:32] LABS: NT-proBNP 609 pg/mL (<300)
== END 2022-03-13 15:58 | disposition home or self-care (01) ==
LOC: LBN 15:57
PROVIDERS: PCP Student in an Organized Health Care Education/Training Program; Visit Provider Nurse Practitioner Gerontology
DX: D62 Acute posthemorrhagic anemia (principal); I50.32 Chronic diastolic (congestive) heart failure; E78.5 Hyperlipidemia, unspecified; E11.9 Type 2 diabetes mellitus without complications; R68.89 Other general symptoms and signs
CPT/HCPCS: 80048; 83036; 83540; 83880; 85025

== ENCOUNTER 2022-03-20 14:27 | Outpatient (REF) | payer MEDICARE, MEDICAID, SELFPAY ==
[2022-03-20 16:52] LABS: Anion Gap 7.9 mmol/L (3-11); BUN 46 mg/dL (7-18); CO2 32.1 mmol/L (21.0-32.0); CREATININE 2.4 mg/dL (0.55-1.02); Calcium 8.9 mg/dL (8.5-10.1); Chloride 98 mmol/L (98-107); Estimated GFR 19.47 (mL/min/1.73m2); Glucose 309 mg/dL (74-106); NT-proBNP 681 pg/mL (<300); Potassium 4.7 mmol/L (3.5-5.1); Sodium 138 mmol/L (136-145)
== END 2022-03-20 14:28 | disposition home or self-care (01) ==
LOC: LBN 14:27
PROVIDERS: PCP Student in an Organized Health Care Education/Training Program; Visit Provider Nurse Practitioner Gerontology
DX: I50.32 Chronic diastolic (congestive) heart failure (principal); I10 Essential (primary) hypertension; R68.89 Other general symptoms and signs
CPT/HCPCS: 80048; 83880

== ENCOUNTER 2022-03-24 01:41 | Outpatient (RCR) | payer MEDICARE, MEDICAID, SELFPAY ==
[2022-03-24 14:01] LABS: HGB 8.1 g/dL (11.2-15.7)
[2022-03-24 14:28] LABS: Iron 24 ug/dL (50-170); Total Iron Binding Capacity 310 ug/dL (250-450)
[2022-03-24 14:31] LABS: Ferritin 66 ng/mL (8-252)
[2022-03-27 10:03] LABS: Transferrin 227 mg/dL (201-352)
== END 2022-04-02 23:59 | disposition home or self-care (01) ==
LOC: INF 01:41
PROVIDERS: PCP Student in an Organized Health Care Education/Training Program; Visit Provider Nurse Practitioner Acute Care
DX: N18.4 Chronic kidney disease, stage 4 (severe) (principal); D63.1 Anemia in chronic kidney disease
CPT/HCPCS: 36415; 96372; 82728; 83540; 83550; 84466; 85014; 85018; J0881

== ENCOUNTER 2022-03-26 17:28 | Emergency (ER) | payer MEDICARE, MEDICAID, SELFPAY ==
[2022-03-26] VITALS (31 sets, daily range): BP systolic 122–151; BP diastolic 30–56; PULSE 69–87; RESP 1–32; TEMP 36.7; O2SAT 88–100
--- NOTE | 2022-03-26 17:15 | RT.EKG_ITS ---
APPROVED REPORT Exam: Resting ECG Reason for Exam: chest pain, sob Patient Location: E HR:84 bpm ECG Measurements Heart Rate 84 AXIS RI 209 P 62 QRSd 100 QRS -52 QT 412 T 93 QTc 488 Conclusion Sinus rhythm...normal P axis, V-rate 60- 99 Left anterior fascicular block...axis(240,-40), init forces inf Probable LVH with secondary repol abnrm...multiple LVH criteria sinus rhythm, left axis, consider slight st depression V5 V6
--- NOTE | 2022-03-26 17:45 | DI.RAD_ITS ---
Exam(s) XR PORTABLE CHEST AP EXAM: XR PORTABLE CHEST AP CLINICAL HISTORY: sob, copd, possible chf. TECHNIQUE: 2D digital imaging was performed. COMPARISON: CR XR CHEST 2V PA LATERAL from 03/02/2022 FINDINGS: Single AP portable view. Mild cardiomegaly. Mediastinum not widened. Right lung remains clear. Atelectasis or scarring in the lower 3rd of the left lung field again note d. Left pleural effusion again noted, slightly smaller than previous. Surgical clips seen in the right-side of the neck. IMPRESSION: Small-moderate sized left pleural effusion, slightly smaller than on 03/02/2022. Platelike atelectasis or scarring in the lower 3rd left lung field again noted, unchanged DATA REPOSITORY: RADIATION DOSE DELIVERED: All CT scans at this facility use at least one of these dose optimization techniques: automated exposure control; mA and/or kV adjustment per patient size (includes targeted e xams where dose is matched to clinical indication); or iterative reconstruction.
--- NOTE | 2022-03-26 18:02 | ED.GENADUL_ITS ---
Discharge Plan Disposition Patient Disposition: HOME Condition: Improving Discharge Details Chief Complaint: Chest Pain Clinical Impression: COPD (chronic obstructive pulmonary disease) Primary Care Provider: Kristal Quiñonez ED Provider: Justin Schaefer Home Meds and New Rx's Prescriptions: No Action (DME) incentive spirometer Qty: 1 0RF Rx Instructions: As directed (DME) Oxygen Tank See Rx Instructions .ROUTE .MEDSUPPLY Qty: 1 Rx Instructions: 3 liters constant albuterol sulfate 90 mcg/actuation HFA aerosol inhaler 2 puff IH Q6H PRN (DME) pen needle, diabetic [BD Ultra-Fine Mini Pen Needle] 31 gauge x 3/16 needle See Rx Instructions .ROUTE .MEDSUPPLY Qty: 200 3RF Rx Instructions: E11.9, to administer glargine BID (DME) pen needle, diabetic [BD Ultra-Fine Mini Pen Needle] 31 gauge x 3/16 needle See Rx Instructions .ROUTE .MEDSUPPLY Qty: 300 3RF Rx Instructions: E11.9, to administer Humulog (quickpen) TID (DME) Portable Oxygen System Qty: 1 0RF Rx Instructions: To administer 3L oxygen while ambulating fluticasone propion-salmeterol [Advair Diskus] 250-50 mcg/dose blister with device 1 inh IH BID levothyroxine 75 mcg capsule 25 mcg PO DAILY Rx Instructions: unknown dose pantoprazole 40 mg tablet,delayed release (DR/EC) 40 mg PO BID@0730,2000 Qty: 180 3RF amlodipine [Norvasc] 2.5 mg tablet 2.5 mg PO DAILY Qty: 90 3RF metoprolol succinate 25 mg tablet extended release 24 hr 25 mg PO DAILY Qty: 90 3RF nitroglycerin [Nitrostat] 0.4 mg tablet, sublingual 0.4 mg SUBLINGUAL Q5M PRN (Reason: chest pain) Qty: 50 5RF gabapentin 100 mg capsule 200 mg PO BID Qty: 180 3RF Tradjenta 5 mg tablet 5 mg PO DAILY Label Comments: TAKE ONE TABLET BY MOUTH EVERY DAY hydralazine 25 mg tablet 25 mg PO DAILY docusate sodium 100 mg Capsule 100 mg PO DAILY cholecalciferol (vitamin D3) [Vitamin D3] 25 mcg (1,000 unit) Tablet 50 mcg PO DAILY acetaminophen [Tylenol] 325 mg tablet 650 mg PO Q6H PRN (Reason: Pain) insulin aspart U-100 [Novolog U-100 Insulin aspart] 100 unit/mL Solution See Rx Instructions .ROUTE .COMPLEX Rx Instructions: per sliding scale insulin glargine [Lantus Solostar U-100 Insulin] 100 unit/mL (3 mL) Insulin Pen 30 unit SUBCUT HS trazodone 50 mg tablet 50 mg PO HS isosorbide dinitrate 30 mg tablet 30 mg PO DAILY paroxetine HCl [Paxil] 20 mg tablet 10 mg PO DAILY buspirone 7.5 mg tablet 5 mg PO DAILY ferrous sulfate 325 mg (65 mg iron) Tablet 325 mg PO DAILY Albuterol-Ipatropium 0.5 mg 3 ml inhalation 4-6XD PRN (Reason: shortness of breath/wheezing) Qty: 60 0RF allopurinol 100 mg tablet 100 mg PO DAILY insulin glargine 100 unit/mL (3 mL) insulin pen 60 unit subcut BID MDD 120 units furosemide 40 mg tablet 40 mg PO DAILY Discharge Instructions Instructions: COPD (Chronic Obstructive Pulmonary Disease) (ED) Additional Instructions: Please follow-up with your primary care physician and discuss your left lower extremity pain which may be related to diabetic neuropathy you may need to adjust your medications or be started on a new medication. Please return the emergency department you develop worsening symptoms such as chest pain or shortness of breath. Continue to take albuterol as needed at home. Medical Decision Making 81-year-old female history of CKD, COPD, possible CHF, CAD, presents with shortness of breath and anterior chest pain that is now resolved, was hypoxic to the 80s before arrival, with a heart rate in the 150s per daughter, usually uses 1 L nasal cannula, currently on 3 L nasal cannula saturating 97%, EKG nonischemic, chest pain resolving shortness of breath resolving denies fever chills cough nausea or vomiting. No peripheral edema. Consider COPD exacerbation versus CHF exacerbation versus ACS versus less likely PE versus less likely pneumothorax versus less likely aortic pathology must also consider viral versus bacterial pneumonia. Screening labs imaging breathing treatments steroids close reassessment disposition pending results. 20: 14 patient resting much more comfortable after dexamethasone and breathing treatment. Bedside ultrasound showing normal cardiac squeeze, no B-lines. X- ray largely unchanged. Bedside ultrasound negative for left lower extremity DVT or arterial occlusion. Patient family feel comfortable having patient return back to group home. Given strict return precautions for any worsening symptoms. Patient is chest pain-free hemodynamically stable. Has been down titrated to 1 L nasal cannula which is her baseline oxygen HPI General Date/Time Provider Initiated Documentation: 03/26/22 17:34 . HPI Narrative: 81-year-old female history of COPD, CKD, possible CHF presents with shortness of breath, patient is oxygen dependent has a concentrator and usually uses 1 L nasal cannula at group home, was with her daughter today had shortness of breath and slight chest discomfort denies fevers chills cough nausea vomiting or other systemic symptoms. Patient's oxygenation when her daughter took her O2 was 88%, and her heart rate was in the 150s. Currently feeling better now that she is on oxygen resting. Related Data Home Medications Medication Instructions Recorded Confirmed ferrous sulfate 325 mg (65 mg 325 mg PO DAILY 05/20/19 03/26/22 iron) tablet Albuterol-Ipatropium 3 ml inhalation 4-6XD PRN 05/26/19 03/26/22 shortness of breath/wheezing #60 ea fluticasone 250 mcg-salmeterol 50 1 inh inhalation BID 10/02/19 03/26/22 mcg/dose blistr powdr for inhalation (Advair Diskus) levothyroxine 75 mcg capsule 25 mcg PO DAILY 10/02/19 03/26/22 Oxygen #1 ea 10/03/19 03/26/22 albuterol sulfate 90 mcg/actuation 2 puff inhalation Q6H PRN 10/03/19 03/26/22 aerosol inhaler Portable Oxygen System #1 ea 10/24/19 03/26/22 pen needle, diabetic 31 gauge x #200 ea 10/24/19 03/26/22 3/16 (BD Ultra-Fine Mini Pen Needle) pen needle, diabetic 31 gauge x #300 ea 10/24/19 03/26/22 3/16 (BD Ultra-Fine Mini Pen Needle) incentive spirometer #1 ea 01/02/20 03/26/22 pantoprazole 40 mg tablet,delayed 40 mg PO BID@0730,1999 #180 tabs 03/23/20 03/26/22 release amlodipine 2.5 mg tablet (Norvasc) 2.5 mg PO DAILY #90 tabs 04/15/20 03/26/22 metoprolol succinate 25 mg 25 mg PO DAILY #90 tabs 04/15/20 03/26/22 tablet,extended release 24 hr allopurinol 100 mg tablet 100 mg PO DAILY 04/18/20 03/26/22 insulin glargine 100 unit/mL (3 60 unit subcut BID 04/18/20 03/26/22 mL) subcutaneous pen furosemide 40 mg tablet 40 mg PO DAILY 04/24/20 03/26/22 nitroglycerin 0.4 mg sublingual 0.4 mg sublingual Q5M PRN chest 04/26/20 03/26/22 tablet (Nitrostat) pain #50 tabs gabapentin 100 mg capsule 200 mg PO BID #180 caps 05/05/20 03/26/22 hydralazine 25 mg tablet 25 mg PO DAILY 06/22/20 03/26/22 linagliptin 5 mg tablet (Tradjenta) 5 mg PO DAILY 06/22/20 03/26/22 acetaminophen 325 mg tablet 650 mg PO Q6H PRN Pain 07/29/20 03/26/22 (Tylenol) cholecalciferol (vitamin D3) 25 50 mcg PO DAILY 07/29/20 03/26/22 mcg (1,000 unit) tablet (Vitamin D3) docusate sodium 100 mg capsule 100 mg PO DAILY 07/29/20 03/26/22 insulin aspart U-100 100 unit/mL See Rx Instructions .Route .COMPLEX 07/29/20 03/26/22 subcutaneous solution (Novolog U-100 Insulin aspart) insulin glargine 100 unit/mL (3 30 unit subcut HS 07/29/20 03/26/22 mL) subcutaneous pen (Lantus Solostar U-100 Insulin) trazodone 50 mg tablet 50 mg PO HS 07/29/20 03/26/22 buspirone 7.5 mg tablet 5 mg PO DAILY 05/30/21 03/26/22 isosorbide dinitrate 30 mg tablet 30 mg PO DAILY 05/30/21 03/26/22 paroxetine HCl 20 mg tablet (Paxil) 10 mg PO DAILY 05/30/21 03/26/22 Previous Rx's Medication Instructions Recorded Albuterol-Ipatropium 3 ml inhalation 4-6XD PRN 09/23/19 shortness of breath/wheezing #60 ea Portable Oxygen System #1 ea 10/24/19 pen needle, diabetic 31 gauge x #200 ea 10/24/1911/16 (BD Ultra-Fine Mini Pen Needle) pen needle, diabetic 31 gauge x #300 ea 10/24/1911/16 (BD Ultra-Fine Mini Pen Needle) incentive spirometer #1 ea 01/02/20 pantoprazole 40 mg tablet,delayed 40 mg PO BID@0730,1999 #180 tabs 03/23/20 release amlodipine 2.5 mg tablet (Norvasc) 2.5 mg PO DAILY #90 tabs 04/15/20 metoprolol succinate 25 mg 25 mg PO DAILY #90 tabs 04/15/20 tablet,extended release 24 hr nitroglycerin 0.4 mg sublingual 0.4 mg sublingual Q5M PRN chest 04/26/20 tablet (Nitrostat) pain #50 tabs gabapentin 100 mg capsule 200 mg PO BID #180 caps 05/05/20 Allergies Allergy/AdvReac Type Severity Reaction Status Date / Time Morphine AdvReac Severe Agitation Uncoded 05/30/21 02:42 General Stated Complaint: Chest Pain JOSH: 3 Review of Systems Narrative: Review of Systems Constitutional: negative Eyes: negative ENT: negative Cardiovascular: Chest discomfort Respiratory: Shortness of breath Gastrointestinal: negative : negative Musculoskeletal: negative Skin: negative Neurologic: negative Psych: negative PFSH All Active Problems (Updated 03/26/22 @ 20:15 by Justin Schaefer MD) Accidental fall from bed (Acute) Closed head injury (Acute) Contusion of right leg (Acute) Abrasion of right leg (Acute) CKD (chronic kidney disease), stage IV (Chronic) Discharge planning issues (Acute) Anemia due to acute blood loss (Acute) Upper GI bleeding (Acute) GI bleed (Chronic) Fall (Acute) Fall (Acute) Syncope (Chronic) Palliative care patient (Acute) Gout (Chronic) Right foot, swelling/red/tender [ ] trial Rx Abnormal blood chemistry (Acute) Moderate obstructive sleep apnea (Chronic 01/21/20) with significant nocturnal hypoxemia 02/03/20 [facility] - CPAP ordered, f/u 04/2020 Eye irritation (Acute) Cellulitis per [employer] (Doxy & Eryth/Polymix/Steroid) DNR (do not resuscitate) (Acute) DNI (do not intubate) (Acute) POLST (Physician Orders for Life-Sustaining Treatment) (Chronic) done with Terra Kebede PUMP[employer] GAGER APPRENTICE on 11/21/19 DNR/DNI Right renal mass (Acute) Acute blood loss anemia (Acute) Discharge planning issues (Acute) Chronic iron deficiency anemia (Acute) Pleural effusion (Acute) Anemia (Chronic) GERD (gastroesophageal reflux disease) (Chronic) Renal mass (Acute) Vascular dementia (Acute) Anemia due to GI blood loss (Acute) Diverticulitis (Acute) Chest discomfort (Acute) Acute exacerbation of chronic obstructive pulmonary disease (Acute) S/P arteriovenous (AV) fistula creation (Chronic) [facility] S/P arterial stent (Chronic) leg x2 History of right-sided carotid endarterectomy (Chronic) H/O cardiac catheterization (Chronic) [address] History of left-sided carotid endarterectomy (Chronic) Hyperlipidemia (Chronic) Depression with anxiety (Chronic) Chronic low back pain (Chronic) History of pulmonary embolism (Chronic) BMI 34.0-34.9,adult (Acute) Hypertension (Chronic) SOB (shortness of breath) (Acute) DVT prophylaxis (Acute) Atypical chest pain (Acute) Acute exacerbation of chronic obstructive pulmonary disease (COPD) (Acute) Acute on chronic diastolic (congestive) heart failure (Acute) Laryngitis (Acute) Tremor (Acute) TIA (transient ischemic attack) (Chronic) Contracture, left hand (Acute) 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) Obstructive chronic bronchitis with exacerbation (Acute) DVT prophylaxis (Acute) Iron deficiency (Chronic) Chest pain (Acute) Paroxysmal atrial fibrillation (Chronic) 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 mellitus (Chronic) Carotid stenosis (Chronic) s/p bilateral CEA Chronic diastolic CHF (congestive heart failure) (Chronic) COPD (chronic obstructive pulmonary disease) (Chronic) CKD (chronic kidney disease) (Chronic) Obesity (BMI 30.0-34.9) (Chronic) Diabetes mellitus (Chronic) Hypothyroidism (Chronic) CAD (coronary artery disease) (Chronic) Medical History (Updated 03/26/22 @ 20:15 by Justin Schaefer MD) DANYELLE (obstructive sleep apnea) Peripheral vascular disease Rheumatoid arthritis Family History Sister Cancer Diabetes Brother Cancer Diabetes Mother , At age 61 Diabetes Father , in 60s, unknown cause No problems noted. Other Heart disease Social History Smoking/Tobacco Use Status: Former Tobacco Use Smoking risk assessment performed?: Yes Alcohol Intake: never Drug use: Never Substance use type: does not use Adopted: No Foster care: No Household members: children Housing: house Number of Children: 3 Do you need help understanding health information?: Always current occupation: Retired; attends [employer] during the day Sexually active: No Do you think of yourself as: straight/heterosexual Current gender identity: female Seatbelt use: always Do you feel safe at home: Yes Do you feel safe in your relationship?: Yes Additional Social history: Lives with daughter Exam Narrative Exam Narrative: Physical Examination General: alert, awake, cooperative, resting comfortably, no acute distress HEENT: normocephalic, atraumatic; PERRL, EOM intact, conjunctiva normal; no nasal discharge; moist mucous membranes, oral and pharyngeal mucosa normal, tolerating secretions Neck: supple, trachea midline; full ROM Chest: normal to inspection Respiratory: Speaking full sentences, coarse breath sounds bilaterally, slight tachypnea Cardiac: regular rate, regular rhythm, S1S2 intact, no murmurs rubs or gallops GI: abdomen soft, non-tender, non-distended; no palpable mass or hepatosplenomegaly Skin: no lesions, rashes or trauma appreciated Neuro: AAOx3, normal speech, moving all extremities Extremities: No peripheral edema Psych: Appropriate mood and affect Course Vital Signs Vital signs: Vital Signs Temperature 36.7 C 03/26/22 17:30 Pulse 87 03/26/22 17:30 Respiratory Rate 20 03/26/22 17:30 Blood Pressure 138/47 L 03/26/22 17:30 Pulse Oximetry 97 03/26/22 17:30 Temperature 36.7 C 03/26/22 17:30 Temperature Source Temporal Artery Scan 03/26/22 17:30 Pulse 87 03/26/22 17:30 Respiratory Rate 20 03/26/22 17:30 Respiratory Effort 03/26/22 17:37 Blood Pressure 138/47 L 03/26/22 17:30 Blood Pressure Position Sitting 03/26/22 17:30 Pulse Oximetry 97 03/26/22 17:30 Oxygen Delivery Method Nasal Cannula 03/26/22 17:30 Oxygen Flow Rate 4 03/26/22 17:30 Pain Level 10 03/26/22 17:30
[2022-03-26 18:08] LABS: Absolute Basophil Count 0.09 10^3/uL (0.0-0.2); Absolute Eosinophil Count 0.35 10^3/uL (0.0-0.7); Absolute Lymphocyte Count 1.76 10^3/uL (1.2-3.4); Absolute Monocyte Count 0.62 10^3/uL (0.1-0.8); Absolute Neutrophil Count 8.33 10^3/uL (1.2-6.7); Basophils % 0.8; Eosinophils % 3.1; HCT 26.3 % (36.0-46.0); HGB 7.8 g/dL (11.2-15.7); Immature Grans % 1.8; Lymphocytes % 15.5; MCH 23.9 pg (27.0-33.0); MCHC 29.7 % (32.0-36.0); MCV 81 fL (80-95); Monocytes % 5.5; Neutrophils % 73.3; Nucleated RBC 0.2 % (0.0-0.3); Platelet Count 344 10^3/uL (130-400); RBC 3.26 10^6/uL (3.93-5.22); RDW 16.2 % (11.7-14.6); RDW-SD 47.2 fL; WBC 11.36 10^3/uL (4.4-10.8)
[2022-03-26] MEDS: Levalbuterol 1.25 MG/3 ML UPD VIAL UPD (18:15)
[2022-03-26] MEDS: Dexamethasone 10 MG/ML VIAL IVP (18:18)
[2022-03-26 18:24] LABS: PTT Activated 29.6 sec (21.0-27.5); Prothrombin Time 9.9 sec (9.3-11.0)
[2022-03-26 18:26] LABS: ALT 19 U/L (14-59); AST 12 U/L (15-37); Albumin 2.9 g/dL (3.4-5.0); Alkaline Phosphatase 80 U/L (46-116); Anion Gap 5.1 mmol/L (3-11); BUN 47 mg/dL (7-18); Bilirubin, Total 0.2 mg/dL (0.2-1.0); CO2 36.9 mmol/L (21.0-32.0); CREATININE 2.4 mg/dL (0.55-1.02); Calcium 8.7 mg/dL (8.5-10.1); Chloride 101 mmol/L (98-107); Estimated GFR 19.47 (mL/min/1.73m2); Glucose 256 mg/dL (74-106); NT-proBNP 1246 pg/mL (<300); Potassium 4.2 mmol/L (3.5-5.1); Sodium 143 mmol/L (136-145); Total Protein 7.2 g/dL (6.4-8.2); Troponin I < 50 ng/L (<or=60)
[2022-03-26] MEDS: Ipratropium 0.5 MG/2.5 ML UPD VIAL UPD (18:52)
--- NOTE | 2022-03-26 19:03 | DI.VRAD_ITS ---
PROCEDURE INFORMATION: Exam: XR Chest Exam date and time: 03/26/2022 6:16 PM Age: 81 years old Clinical indication: Other: SOB, copd, possible chf TECHNIQUE: Imaging protocol: Radiologic exam of the chest. Views: 1 view. COMPARISON: CR XR CHEST 2V PA LATERAL 03/02/2022 11:17 AM FINDINGS: Tubes, catheters and devices: Monitoring wires noted. Lungs: Unremarkable. No consolidation. Pulmonary vessels are not congested. Pleural spaces: Blunting noted at the left costophrenic angle. No right pleural effusion. No pneumothorax. Heart/Mediastinum: Mild cardiomegaly. Bones/joints: Arthropathy noted in both shoulders. IMPRESSION: 1. Continued mild left pleural effusion or pleuroparenchymal scar. 2. No significant vascular congestion. Dictated and Authenticated by: Rizwan Fraser MD. Ordering:[id number] Anderson MD
[2022-03-26 19:35] LABS: Source Nasal/Nares
[2022-03-26 20:25] LABS: COVID-19 PCR Negative (Negative)
== END 2022-03-26 20:38 | disposition home or self-care (01) ==
PROVIDERS: Emergency Provider Emergency Medicine; PCP Student in an Organized Health Care Education/Training Program
DX: J44.9 Chronic obstructive pulmonary disease, unspecified (principal); Z87.891 Personal history of nicotine dependence; Z20.822 Contact with and (suspected) exposure to COVID-19; Z79.51 Long term (current) use of inhaled steroids; R07.89 Other chest pain
CPT/HCPCS: 80053; 87635; 93005; 94640; 96374; 99284; 71045; 83880; 84484; 85025; 85610; 85730; 93010; J1100; J7614; J7644

== ENCOUNTER 2022-04-04 18:44 | Outpatient (REF) | payer MEDICARE, MEDICAID, SELFPAY ==
[2022-04-04 17:33] LABS: Bilirubin Negative (Negative); Blood Negative (Negative); Clarity Sl Cloudy (Clear); Glucose Negative (Negative); Ketones Negative (Negative); Leukocyte Esterase Negative (Negative); Nitrite Negative (Negative); Specific Gravity 1.015 (1.005-1.025); Urobilinogen 0.2 EU/dL (Up TO 0.2); pH 5.5 (5-8)
[2022-04-04 18:32] LABS: Bacteria Many HPF (Negative); C & S Indicated? C&S Done As Ordered; Crystals Negative HPF (Negative); Epithelial Cells Negative HPF (Negative); Mucus Negative (Negative); RBC Negative HPF (0-2)
== END 2022-04-04 18:45 | disposition home or self-care (01) ==
LOC: LBN 18:44
PROVIDERS: PCP Student in an Organized Health Care Education/Training Program; Visit Provider Nurse Practitioner Gerontology
DX: E11.40 Type 2 diabetes mellitus with diabetic neuropathy, unspecified (principal); R82.998 Other abnormal findings in urine
CPT/HCPCS: 81003; 81015; 87086